=== PATIENT | female | born 1995 | race Caucasian/White ===

== ENCOUNTER 2016-08-22 17:27 | Emergency (ER) | payer OTHER ==
[~2016-08-22] VITALS: Ht 170.2 cm; Wt 100.7 kg
[~2016-08-22 17:27] MED LIST: ACET-1311 PO; ATVI IV; BCPILLS PO; FOLI1TAB7 PO; LEVO25TA PO; LMC100 PO; NORT25CA PO; OXYB5TAB74 PO; VNTHFA/IN INH
[2016-08-22 17:28] VITALS: TEMP 36.7; Ht 170.2 cm; Wt 100.7 kg
[2016-08-22] MEDS ORDERED: RRALBUTNEB PO (17:44)
[2016-08-22 18:18] LABS: BASO % 0.3 %; BASO ABS # 0.03 K/uL (0-0.2); COMPLETE YES; EOS % 6.4 %; HEMATOCRIT 41.9 % (37-47); IG% 0.2 %; LYMPH % 27.3 %; LYMPH ABS # 2.55 K/uL (1.2-3.4); MEAN CELL VOLUME 87.7 fL (80-100); MEAN CORPUSCULAR HEMOGLOBIN 29.7 pg (25-34); MEAN CORPUSCULAR HGB CONC 33.9 g/dl (32-36); MEAN PLATELET VOLUME 10.3 fL (7.4-10.4); MONO % 6.6 %; NEUT % 59.2 %; PLATELET COUNT 296 K/uL (130-400); RED BLOOD COUNT 4.78 M/uL (4.2-5.4); WHITE BLOOD COUNT 9.35 K/uL (4.8-10.8)
[2016-08-22 18:25] LABS: BUN/CREATININE RATIO 26.3 (10-20); CALCIUM 8.9 mg/dl (8.5-10.1); CREATININE 0.68 mg/dl (0.60-1.20); POTASSIUM 3.7 mmol/L (3.5-5.1)
[2016-08-22 18:28] LABS: ALB/GLOB RATIO 0.9 (0.9-2)
[2016-08-22 18:29] LABS: URINE APPEARANCE CLOUDY (CLEAR); URINE COLOR DK YELLOW; URINE EPITHELIAL CELL AUTO >30 /lpf (0-5); URINE NITRITE NEG (NEG); URINE PH 5.5 (4.5-7.5); URINE SPECIFIC GRAVITY 1.039 (1.000-1.030); UROBILINOGEN NEG (NEG); ZZUR CULT IF INDIC CLEAN CATCH NO
[2016-08-22 18:31] LABS: PARTIAL THROMBOPLASTIN RATIO 1.2; PROTHROMBIN TIME (PATIENT) 10.8 SECONDS (9.0-12.0)
[2016-08-22 18:39] LABS: MANUAL MICROSCOPIC REQUIRED? NO; REVIEW REQ? NO; URINE BILIRUBIN NEG (NEG)
[2016-08-22 18:41] LABS: PREG INTERNAL NEGATIVE QC NEG CLEAR BACKGROUND; PREG INTERNAL POSITIVE QC POS CONTROL LINE
--- NOTE | 2016-08-22 19:13 | DIAGNOSTIC IMAGING REPORT ---
PELVIC ULTRASOUND CLINICAL HISTORY: Heavy vaginal bleeding and cramps. COMPARISON STUDY: Pelvic ultrasound May 24, 2016. TECHNIQUE: Transabdominal and transvaginal sonography of the pelvis was performed. FINDINGS: The uterus measures 6.7 x 3.8 x 4.9 cm. The endometrium measures 4 mm in thickness. No uterine abnormalities are identified by sonography. The right ovary measures 2.9 x 1.7 x 1.9 cm and the left measures 2.5 x 1.4 x 1.8 cm. A few echogenic foci within the ovaries are of doubtful significance. Color flow was identified within each ovary and there was no free fluid. IMPRESSION: Unremarkable pelvic ultrasound. Electronically signed by: Rohith Raphael M.D. 08/22/2016 7:11 PM Dictated Date/Time: 08/22/2016 7:10 PM
[2016-08-22] MEDS ORDERED: KETOROLAC TROMETHAMINE 30 MG/ML VIAL IV STA (19:17)
--- NOTE | 2016-08-22 19:59 | EMERGENCY ROOM VISIT NOTE ---
History First contact with patient: 17:32 Chief Complaint: VAGINAL BLEEDING Stated Complaint: VAGINAL BLEEDING History of Present Illness The patient is a 21 year old female who presents to the Emergency Room with complaints of vaginal bleeding and pelvic cramping. The patient reports that she takes control pills and typically has her menstrual period 3 times a year. She states that she is not yet due for her period, but she has had vaginal bleeding for the past 3 weeks. She states this is slightly heavier than her regular periods. She also reports cramps, worse on the right side than the left. The patient does have a history of tubal last year while she was taking control pills. She states that she has changed pills since then. She does report a significant history of several ovarian cysts. The patient has called a new INDUSTRIAL RELATIONS OFFICER and does have an appointment next week. She denies any nausea/vomiting, fevers/chills, abnormal vaginal discharge or urinary symptoms. The patient does report that she takes her control daily and does not miss any days. Review of Systems A complete 10-point Review of Systems was discussed with the patient, with pertinent positives and negatives listed in the History of Present Illness. All remaining Review of Systems questions can be considered negative unless otherwise specified. Past Medical/Surgical History Medical Problems: (1) Asthma (2) Dyslipidemia (3) GERD (gastroesophageal reflux disease) (4) Kidney stone (5) OAB (overactive bladder) (6) Ovarian cyst (7) PTSD (post-traumatic stress disorder) (8) Seizures (9) Vaginal delivery Surgical Problems: (1) H/O colonoscopy (2) H/O esophagogastroduodenoscopy (3) H/O foot surgery (4) S/P laparoscopic cholecystectomy (5) S/P removal of ovarian cyst (6) Status post Mohs surgery Family History Diabetes mellitus FATHER GRANDMOTHER FH: cancer FATHER FH: gallbladder disease FH: heart disease FH: seizures MOTHER Social History Smoking Status: Current Every Day Smoker Alcohol Use: none Drug Use: none Marital Status: in relationship Housing Status: lives with family Occupation Status: unemployed Current/Historical Medications Scheduled Control Pills ( Control Pills), 1 TAB PO QAM Folic Acid (Folvite), 3 MG PO QAM Lamotrigine (Lamotrigine), 200 MG PO BID Levothyroxine Sodium (Synthroid), 1 TAB PO DAILY Nortriptyline (Pamelor), 25 MG PO HS Oxybutynin Chloride (Ditropan), 5 MG PO HS Scheduled PRN Acetaminophen (Tylenol), 650 MG PO DIRECTED PRN for Headache Albuterol Hfa (Ventolin Hfa), 2 PUFFS INH UD PRN for Asthma Symptoms Albuterol Sulf (Albuterol Sulfate), 1 DOSE PO Q4 PRN for Shortness of Breath Allergies Coded Allergies: Hydromorphone (Verified Allergy, Severe, Respirations stopped., 08/22/16) Morphine (Unverified Allergy, Intermediate, HIVES, 08/22/16) Adhesives (Verified Allergy, Mild, RASH, 08/22/16) Amoxicillin (Verified Allergy, Mild, RASH, 08/22/16) Oxycodone (Verified Allergy, Unknown, Hives, 08/22/16) Physical Exam Vital Signs Date Time Temp Pulse Resp B/P Pulse Ox O2 Delivery O2 Flow Rate FiO2 08/22/16 20:13 73 18 138/86 97 08/22/16 19:10 86 18 123/81 96 Room Air 08/22/16 17:28 36.7 83 20 135/92 99 Room Air Physical Exam VITALS: Vitals are noted on the nurse's note and reviewed by myself. Vital signs stable. GENERAL: This is a 21-year-old female, in no acute distress, nondiaphoretic, well-developed well-nourished. SKIN: Capillary reflex less than 2 seconds. HEART: Regular rate and rhythm without murmurs gallops or rubs. LUNGS: Clear to auscultation bilaterally without wheezes, rales or rhonchi. ABDOMEN: Positive bowel sounds x 4. The abdomen is soft. There is mild tenderness of the right lower abdomen. No guarding or rebound tenderness. PELVIC: External genitalia unremarkable. There is no blood within the vaginal vault. No abnormal discharge. NEURO: Patient was alert and oriented to person place and time. Medical Decision & Procedures ER Provider Diagnostic Interpretation: PELVIC ULTRASOUND CLINICAL HISTORY: Heavy vaginal bleeding and cramps. COMPARISON STUDY: Pelvic ultrasound May 24, 2016. TECHNIQUE: Transabdominal and transvaginal sonography of the pelvis was performed. FINDINGS: The uterus measures 6.7 x 3.8 x 4.9 cm. The endometrium measures 4 mm in thickness. No uterine abnormalities are identified by sonography. The right ovary measures 2.9 x 1.7 x 1.9 cm and the left measures 2.5 x 1.4 x 1.8 cm. A few echogenic foci within the ovaries are of doubtful significance. Color flow was identified within each ovary and there was no free fluid. IMPRESSION: Unremarkable pelvic ultrasound. Laboratory Results 08/22/16 18:00 Red Blood Count 4.78, Mean Corpuscular Volume 87.7, Mean Corpuscular Hemoglobin 29.7, Mean Corpuscular Hemoglobin Concent 33.9, Mean Platelet Volume 10.3, Neutrophils (%) (Auto) 59.2, Lymphocytes (%) (Auto) 27.3, Monocytes (%) (Auto) 6.6, Eosinophils (%) (Auto) 6.4, Basophils (%) (Auto) 0.3, Neutrophils # (Auto) 5.53, Lymphocytes # (Auto) 2.55, Monocytes # (Auto) 0.62, Eosinophils # (Auto) 0.60, Basophils # (Auto) 0.03 08/22/16 18:00 Test 08/22/16 18:00 White Blood Count 9.35 K/uL (4.8-10.8) Red Blood Count 4.78 M/uL (4.2-5.4) Hemoglobin 14.2 g/dL (12.0-16.0) Hematocrit 41.9 % (37-47) Mean Corpuscular Volume 87.7 fL (80-100) Mean Corpuscular Hemoglobin 29.7 pg (25-34) Mean Corpuscular Hemoglobin Concent 33.9 g/dl (32-36) Platelet Count 296 K/uL (130-400) Mean Platelet Volume 10.3 fL (7.4-10.4) Neutrophils (%) (Auto) 59.2 % Lymphocytes (%) (Auto) 27.3 % Monocytes (%) (Auto) 6.6 % Eosinophils (%) (Auto) 6.4 % Basophils (%) (Auto) 0.3 % Neutrophils # (Auto) 5.53 K/uL (1.4-6.5) Lymphocytes # (Auto) 2.55 K/uL (1.2-3.4) Monocytes # (Auto) 0.62 K/uL (0.11-0.59) Eosinophils # (Auto) 0.60 K/uL (0-0.5) Basophils # (Auto) 0.03 K/uL (0-0.2) RDW Standard Deviation 42.5 fL (36.4-46.3) RDW Coefficient of Variation 13.3 % (11.5-14.5) Immature Granulocyte % (Auto) 0.2 % Immature Granulocyte # (Auto) 0.02 K/uL (0.00-0.02) Prothrombin Time 10.8 SECONDS (9.0-12.0) Prothromb Time International Ratio 1.0 (0.9-1.1) Activated Partial Thromboplast Time 30.2 SECONDS (21.0-31.0) Partial Thromboplastin Ratio 1.2 Urine Color DK YELLOW Urine Appearance CLOUDY (CLEAR) Urine pH 5.5 (4.5-7.5) Urine Specific [place] 1.039 (1.000-1.030) Urine Protein TRACE (NEG) Urine Glucose (UA) NEG (NEG) Urine Ketones NEG (NEG) Urine Occult Blood 3+ (NEG) Urine Nitrite NEG (NEG) Urine Bilirubin NEG (NEG) Urine Urobilinogen NEG (NEG) Urine Leukocyte Esterase NEG (NEG) Urine WBC (Auto) 1-5 /hpf (0-5) Urine RBC (Auto) 5-10 /hpf (0-4) Urine Hyaline Casts (Auto) 5-10 /lpf (0-5) Urine Epithelial Cells (Auto) >30 /lpf (0-5) Urine Bacteria (Auto) NEG (NEG) Anion Gap 11.0 mmol/L (3-11) Est Creatinine Clear Calc Drug Dose 159.6 ml/min Estimated GFR () 144.9 Estimated GFR (Non- 125.0 BUN/Creatinine Ratio 26.3 (10-20) Calcium Level 8.9 mg/dl (8.5-10.1) Total Bilirubin 0.3 mg/dl (0.2-1) Aspartate Amino Transf (AST/SGOT) 13 U/L (15-37) Alanine Aminotransferase (ALT/SGPT) 18 U/L (12-78) Alkaline Phosphatase 67 U/L (45-117) Total Protein 7.1 gm/dl (6.4-8.2) Albumin 3.4 gm/dl (3.4-5.0) Globulin 3.7 gm/dl (2.5-4.0) Albumin/Globulin Ratio 0.9 (0.9-2) Human Chorionic Gonadotropin, Qual NEG (NEG) Medications Administered Medications (Trade) Dose Ordered Sig/Miroslava Route Start Time Stop Time Status Last Admin Dose Admin Ketorolac Tromethamine (Toradol Inj) 30 mg NOW STAT IV 08/22/16 19:17 08/22/16 19:18 DC 08/22/16 19:25 30 MG Medical Decision Differential diagnosis includes ectopic , miscarriage, ovarian cyst, ovarian torsion, uterine fibroids, among others. The patient was evaluated as above. Labs were drawn and IV access was obtained. Imaging studies were performed and read by radiology as above. The patient was medicated with 30 mg Toradol IV. The patient was reassessed multiple times during their stay in the emergency department and remained in stable condition. The patient is a 21-year-old female who presents today complaining of abnormal vaginal bleeding and pelvic cramps. Labs revealed no leukocytosis, anemia, electrolyte abnormalities or coagulopathies. Pelvic ultrasound was performed and was unremarkable. I am not suspicious of other acute process within the abdomen, as the patient's symptoms have been intermittent for the past several weeks. Urinalysis was not suggestive of infection. Serum was negative. Pelvic exam was performed and does not show any blood within the vaginal vault. The patient is not anemic and her bleeding has not been excessively heavy. They do feel she is stable to follow-up with INDUSTRIAL RELATIONS OFFICER as an outpatient as scheduled. She will return sooner for any new/concerning symptoms. She verbalized understanding of my assessment and treatment plan and was discharged home in good condition. Based on the patient's presentation, lab results, and imaging studies, I feel the patient is stable for outpatient treatment. Discharge instructions were reviewed with the patient. The patient verbalized understanding of my assessment and treatment plan and was discharged home in good condition. Impression Primary Impression: Abnormal vaginal bleeding Departure Information Dispostion Home / Self-Care Condition GOOD Referrals Melissa Kolb D.O. (PCP) Patient Instructions A Signature Page, My [facility] Additional Instructions Follow-up with INDUSTRIAL RELATIONS OFFICER as scheduled. Ultrasound today was negative. For pain control, you can use the following [id number] medicines (if >12 yo): - Regular strength (325mg/tab) Tylenol (acetaminophen) 2 tabs every 4-6 hours as needed. Do not exceed 12 tablets in a 24 hour period. Avoid taking more than 4 grams (4000 mg) of Tylenol per day. This includes any other sources of acetaminophen you may take on a regular basis. - Regular strength (200 mg/tab) Advil (ibuprofen) 1-2 tabs every 4-6 hours as needed. Do not exceed a dose of 3200 mg per day. Return to the emergency department with worsening pain, worsening bleeding or any other new/concerning symptoms.
[2016-08-22 20:13] VITALS: BP 138/86; PULSE 73; O2SAT 97
== END 2016-08-22 20:16 | disposition home or self-care (01) ==
LOC: C.EDB 17:28
DX: N93.9 Abnormal uterine and vaginal bleeding, unspecified (principal); R10.2 Pelvic and perineal pain; J45.909 Unspecified asthma, uncomplicated; K21.9 Gastro-esophageal reflux disease without esophagitis; E78.5 Hyperlipidemia, unspecified; F17.200 Nicotine dependence, unspecified, uncomplicated

== ENCOUNTER 2017-01-22 11:46 | Emergency (ER) | payer OTHER ==
[~2017-01-22] VITALS: Ht 170.2 cm; Wt 100.7 kg
[~2017-01-22 11:46] MED LIST changes: -ATVI IV; +DTR/5 PO; -NORT25CA PO; -OXYB5TAB74 PO; +RRALBUTNEB PO
[2017-01-22 11:49] VITALS: TEMP 36.6; Ht 170.2 cm; Wt 100.7 kg
[2017-01-22] MEDS ORDERED: LEVO50TA6 PO (12:01)
[2017-01-22] MEDS ORDERED: LEVE500T13 PO (12:02)
[2017-01-22 12:43] LABS: BASO % 0.3 %; BASO ABS # 0.02 K/uL (0-0.2); COMPLETE YES; EOS % 8.3 %; HEMATOCRIT 43.9 % (37-47); LYMPH % 37.5 %; LYMPH ABS # 2.71 K/uL (1.2-3.4); MEAN CELL VOLUME 88.9 fL (80-100); MEAN CORPUSCULAR HGB CONC 33.7 g/dl (32-36); MEAN PLATELET VOLUME 9.4 fL (7.4-10.4); MONO % 8.3 %; NEUT % 45.6 %; PLATELET COUNT 288 K/uL (130-400); RED BLOOD COUNT 4.94 M/uL (4.2-5.4); WHITE BLOOD COUNT 7.22 K/uL (4.8-10.8)
[2017-01-22 12:47] LABS: URINE APPEARANCE CLEAR (CLEAR); URINE BILIRUBIN NEG (NEG); URINE COLOR YELLOW; URINE EPITHELIAL CELL AUTO >30 /lpf (0-5); URINE NITRITE NEG (NEG); URINE PH 7.5 (4.5-7.5); URINE SPECIFIC GRAVITY 1.014 (1.000-1.030); UROBILINOGEN NEG (NEG); ZZUR CULT IF INDIC CLEAN CATCH NO
--- NOTE | 2017-01-22 12:53 | EMERGENCY ROOM VISIT NOTE ---
History Report prepared by Santosh: Anthony Shabazz Under the Supervision of: Dr. Naveed Lancaster M.D. First contact with patient: 12:19 Chief Complaint: ABDOMINAL PAIN Stated Complaint: ABD. PAIN W/VAGINAL BLEEDING Nursing Triage Summary: Pt reports lower abdominal pain since . N/V. Pt reports she normally only gets her menstrual cycle once every 3 months due to control. Pt reports she had her period last month, but she is now having vaginal bleeding again. History of Present Illness The patient is a 21 year old female who presents to the Emergency Room with complaints of persistent suprapubic abdominal pain starting 2 days ago. She took Tylenol last night without relief. She also complains of vaginal bleeding starting about 2 days ago. The patient normally has her menstrual period once every 3 months due to control. She had her menstrual period last month. She had a vomiting episode yesterday and today. She currently denies any nausea. She has intermittent swelling in both feet. She discussed her symptoms with her OB-ASSOCIATE ATTORNEY who referred her to the Emergency Room. She denies any chance of . She states that she is not concerned for STDs. She has a history of ectopic occurring last year. She also has a history of ovarian cyst and cholecystectomy. She denies any fevers, chills, back pain, or any other complaints. Source of History: patient Onset: 2 days ago Position: abdomen (suprapubic) Timing: other (persistent) Modifying Factors (Relieving): tylenol (without relief) Associated Symptoms: + nausea, + vomiting, No fevers, No chills, No back pain Review of Systems See HPI for pertinent positives & negatives. A total of 10 systems reviewed and were otherwise negative. Past Medical & Surgical Medical Problems: (1) Asthma (2) Dyslipidemia (3) GERD (gastroesophageal reflux disease) (4) Kidney stone (5) OAB (overactive bladder) (6) Ovarian cyst (7) PTSD (post-traumatic stress disorder) (8) Seizures (9) Vaginal delivery Surgical Problems: (1) H/O colonoscopy (2) H/O esophagogastroduodenoscopy (3) H/O foot surgery (4) S/P laparoscopic cholecystectomy (5) S/P removal of ovarian cyst (6) Status post Mohs surgery Family History Diabetes mellitus FATHER GRANDMOTHER FH: cancer FATHER FH: gallbladder disease FH: heart disease FH: seizures MOTHER Social History Smoking Status: Current Every Day Smoker Alcohol Use: none Drug Use: none Marital Status: in relationship Housing Status: lives with family Occupation Status: unemployed Current/Historical Medications Scheduled Control Pills ( Control Pills), 1 TAB PO QAM Folic Acid (Folvite), 3 MG PO QAM Lamotrigine (Lamotrigine), 200 MG PO BID Levetiracetam (Keppra), 250 MG PO BID Levothyroxine Sodium (Levothyroxine Sodium), 50 MCG PO DAILY Oxybutynin Chloride (Ditropan), 5 MG PO HS Scheduled PRN Acetaminophen (Tylenol), 650 MG PO DIRECTED PRN for Headache Albuterol Hfa (Ventolin Hfa), 2 PUFFS INH UD PRN for Asthma Symptoms Albuterol Sulf (Albuterol Sulfate), 1 DOSE PO Q4 PRN for Shortness of Breath Allergies Coded Allergies: Hydromorphone (Verified Allergy, Severe, Respirations stopped., 01/22/17) Morphine (Unverified Allergy, Intermediate, HIVES, 01/22/17) Adhesives (Verified Allergy, Mild, RASH, 01/22/17) Amoxicillin (Verified Allergy, Mild, RASH, 01/22/17) Oxycodone (Verified Allergy, Unknown, Hives, 01/22/17) Physical Exam Vital Signs Date Time Temp Pulse Resp B/P (MAP) Pulse Ox O2 Delivery O2 Flow Rate FiO2 01/22/17 13:53 94 16 114/74 97 Room Air 01/22/17 11:49 36.6 97 18 120/79 97 Room Air Physical Exam GENERAL: Patient is well appearing and in minimal distress. HEENT: No acute trauma, normocephalic atraumatic, mucous membranes moist, no nasal congestion, no scleral icterus. NECK: No stridor, no adenopathy, no meningismus, trachea is midline. LUNGS: No dyspnea. Clear to auscultation and equal bilaterally. No wheeze, no rhonchi. HEART: Regular rate and rhythm. No murmurs, rubs, gallops appreciated. ABDOMEN: Soft, vague suprapubic/right pelvic discomfort to palpation, bowel sounds positive, no masses appreciated, no peritonitis. BACK: No midline tenderness, no CVA tenderness PELVIC EXAM: Normal vaginal vault, no blood or discharge. EXTREMITIES: Normal motion all extremities, no cyanosis, no edema. NEUROLOGIC: Alert and oriented, no acute motor or sensory deficits, no focal weakness, cranial nerves grossly intact. SKIN: No rash, no jaundice, no diaphoresis. Medical Decision & Procedures ER Provider Diagnostic Interpretation: US results as stated below per interpretation by me and the radiologist: PELVIC ULTRASOUND CLINICAL HISTORY: Right pelvic discomfort. COMPARISON STUDY: Pelvic ultrasound August 2016. TECHNIQUE: Transabdominal and transvaginal sonography of the pelvis was performed. FINDINGS: The uterus measures 7.8 x 3.4 x 4.1 cm. Endometrium is normal in thickness, measuring 3 mm. The right ovary measures 3.2 x 2.2 x 1.7 cm and the left measures 3.3 x 1.4 x 1.4 cm. Color flow is identified within each ovary. Numerous follicles were shown within the ovaries. There was no free fluid. IMPRESSION: Normal pelvic ultrasound. Electronically signed by: Rohith Raphael M.D. 01/22/2017 1:44 PM Dictated Date/Time: 01/22/2017 1:42 PM Laboratory Results 01/22/17 12:31 Red Blood Count 4.94, Mean Corpuscular Volume 88.9, Mean Corpuscular Hemoglobin 30.0, Mean Corpuscular Hemoglobin Concent 33.7, Mean Platelet Volume 9.4, Neutrophils (%) (Auto) 45.6, Lymphocytes (%) (Auto) 37.5, Monocytes (%) (Auto) 8.3, Eosinophils (%) (Auto) 8.3, Basophils (%) (Auto) 0.3, Neutrophils # (Auto) 3.29, Lymphocytes # (Auto) 2.71, Monocytes # (Auto) 0.60, Eosinophils # (Auto) 0.60, Basophils # (Auto) 0.02 01/22/17 00:00 Test 01/22/17 00:00 01/22/17 12:31 Anion Gap 10.0 mmol/L (3-11) Est Creatinine Clear Calc Drug Dose 152.9 ml/min Estimated GFR () 141.1 Estimated GFR (Non- 121.8 BUN/Creatinine Ratio 19.1 (10-20) Calcium Level 8.7 mg/dl (8.5-10.1) White Blood Count 7.22 K/uL (4.8-10.8) Red Blood Count 4.94 M/uL (4.2-5.4) Hemoglobin 14.8 g/dL (12.0-16.0) Hematocrit 43.9 % (37-47) Mean Corpuscular Volume 88.9 fL (80-100) Mean Corpuscular Hemoglobin 30.0 pg (25-34) Mean Corpuscular Hemoglobin Concent 33.7 g/dl (32-36) Platelet Count 288 K/uL (130-400) Mean Platelet Volume 9.4 fL (7.4-10.4) Neutrophils (%) (Auto) 45.6 % Lymphocytes (%) (Auto) 37.5 % Monocytes (%) (Auto) 8.3 % Eosinophils (%) (Auto) 8.3 % Basophils (%) (Auto) 0.3 % Neutrophils # (Auto) 3.29 K/uL (1.4-6.5) Lymphocytes # (Auto) 2.71 K/uL (1.2-3.4) Monocytes # (Auto) 0.60 K/uL (0.11-0.59) Eosinophils # (Auto) 0.60 K/uL (0-0.5) Basophils # (Auto) 0.02 K/uL (0-0.2) RDW Standard Deviation 42.0 fL (36.4-46.3) RDW Coefficient of Variation 12.8 % (11.5-14.5) Immature Granulocyte % (Auto) 0.0 % Immature Granulocyte # (Auto) 0.00 K/uL (0.00-0.02) Urine Color YELLOW Urine Appearance CLEAR (CLEAR) Urine pH 7.5 (4.5-7.5) Urine Specific [place] 1.014 (1.000-1.030) Urine Protein NEG (NEG) Urine Glucose (UA) NEG (NEG) Urine Ketones NEG (NEG) Urine Occult Blood 3+ (NEG) Urine Nitrite NEG (NEG) Urine Bilirubin NEG (NEG) Urine Urobilinogen NEG (NEG) Urine Leukocyte Esterase TRACE (NEG) Urine WBC (Auto) 5-10 /hpf (0-5) Urine RBC (Auto) 5-10 /hpf (0-4) Urine Hyaline Casts (Auto) 1-5 /lpf (0-5) Urine Epithelial Cells (Auto) >30 /lpf (0-5) Urine Bacteria (Auto) NEG (NEG) Urine Test NEG (NEG) Laboratory results as reviewed by me. Medications Administered Medications (Trade) Dose Ordered Sig/Miroslava Route Start Time Stop Time Status Last Admin Dose Admin Ketorolac Tromethamine (Toradol Inj) 60 mg NOW STAT IM 01/22/17 13:06 01/22/17 13:07 DC 01/22/17 13:15 60 MG ED Course 1219: The patient was evaluated in room B02. A complete history and physical exam was performed. 1246: I performed the pelvic exam. 1306: Toradol Inj 60 mg IM 1419: Reevaluated the patient. Discussed results and discharge instructions: She verbalized understanding and agreement. The patient is ready for discharge. Medical Decision Differential: Appendicitis, Ovarian Torsion, PID, Tubo-ovarian Abscess, Intrauterine , Ectopic , Endometriosis, amongst other pathologies entertained. Blood pressure screening: Patient was found to have normal blood pressure on screening and does not require follow-up. Medication Reconciliation: I attest that I have personally reviewed the patient 's current medication list. 21 yr old female who has history of chronic pelvic issues on suppressive OC therapy and frequent visits to here, Structural Layout Worker, and other ERs for vaginal bleeding pelvic discomfort. US negative, exam benign, labs normal. She is well appearing and in no distress stating IM Toradol helped her discomfort. Exam not consistent with appendicitis. She does not have US nor exam consistent with torsion/pid/abscess. Preg negative. Advised follow up with Structural Layout Worker, RT[facility] if worsening or other concerns. Impression Primary Impression: Pelvic pain Scribe Attestation The scribe's documentation has been prepared under my direction and personally reviewed by me in its entirety. I confirm that the note above accurately reflects all work, treatment, procedures, and medical decision making performed by me. Departure Information Dispostion Home / Self-Care Referrals Melissa Kolb D.O. (PCP) Forms HOME CARE DOCUMENTATION FORM, IMPORTANT VISIT INFORMATION Patient Instructions My [facility] Additional Instructions Please follow up with your Woodenware Assembler for further evaluation. Return if fevers, vomiting, passing out worsening pain or other concerns. Use Tylenol and Ibuprofen as needed for discomfort.
[2017-01-22 12:54] LABS: MANUAL MICROSCOPIC REQUIRED? NO; REVIEW REQ? NO
[2017-01-22] MEDS ORDERED: KETOROLAC TROMETHAMINE 60 MG/2 ML VIAL IM STA (13:06)
[2017-01-22 13:18] LABS: BUN/CREATININE RATIO 19.1 (10-20); CALCIUM 8.7 mg/dl (8.5-10.1); CREATININE 0.71 mg/dl (0.60-1.20); POTASSIUM 4.3 mmol/L (3.5-5.1)
--- NOTE | 2017-01-22 13:45 | DIAGNOSTIC IMAGING REPORT ---
PELVIC ULTRASOUND CLINICAL HISTORY: Right pelvic discomfort. COMPARISON STUDY: Pelvic ultrasound August 2016. TECHNIQUE: Transabdominal and transvaginal sonography of the pelvis was performed. FINDINGS: The uterus measures 7.8 x 3.4 x 4.1 cm. Endometrium is normal in thickness, measuring 3 mm. The right ovary measures 3.2 x 2.2 x 1.7 cm and the left measures 3.3 x 1.4 x 1.4 cm. Color flow is identified within each ovary. Numerous follicles were shown within the ovaries. There was no free fluid. IMPRESSION: Normal pelvic ultrasound. Electronically signed by: Rohith Raphael M.D. 01/22/2017 1:44 PM Dictated Date/Time: 01/22/2017 1:42 PM
[2017-01-22 13:53] VITALS: BP 114/74; PULSE 94; O2SAT 97
== END 2017-01-22 14:31 | disposition home or self-care (01) ==
LOC: C.EDB 11:48
DX: R10.2 Pelvic and perineal pain (principal); R11.10 Vomiting, unspecified; J45.909 Unspecified asthma, uncomplicated; F17.200 Nicotine dependence, unspecified, uncomplicated; Z87.442 Personal history of urinary calculi; Z90.49 Acquired absence of other specified parts of digestive tract; Z98.890 Other specified postprocedural states; Z83.3 Family history of diabetes mellitus; Z82.0 Family history of epilepsy and other diseases of the nervous system

== ENCOUNTER 2017-04-06 13:44 | Emergency (ER) | payer OTHER ==
[~2017-04-06] VITALS: Ht 170.2 cm; Wt 101.2 kg
[~2017-04-06 13:44] MED LIST changes: -DTR/5 PO; +LEVE500T13 PO; -LEVO25TA PO; +LEVO50TA6 PO; +OXYB5TAB74 PO
[2017-04-06 13:49] VITALS: TEMP 36.8; Ht 170.2 cm; Wt 101.2 kg
[2017-04-06] MEDS ORDERED: SODIUM CHLORIDE 0.9% 1000ML 1,000 ML IV STA (14:02)
[2017-04-06] MEDS ORDERED: FENTANYL CITRATE INJ 50 MCG/1 ML 2 ML VIAL IV STA (14:02)
--- NOTE | 2017-04-06 14:08 | EMERGENCY ROOM VISIT NOTE ---
History First contact with patient: 13:52 Chief Complaint: ABDOMINAL PAIN Stated Complaint: LEFT SIDE AB PAIN History of Present Illness The patient is a 21 year old female who presents to the Emergency Room via private vehicle accompanied by female with complaints of "left side abdominal pain". The patient states she has a history of ovarian cysts, and colitis of which she follows with [facility]. She states that she has had pain exactly like this with previous ovarian cysts. She has tried changing her control pills with some improvement. She currently notes that the pain she is experiencing left lower quadrant, times the past few days. Today has acutely worsened. She rates the pain as an 8/10. She called her [facility] today who informed her to go to the emergency Department for further evaluation and management as it did not have any appointments today. She has associated nausea. She states that she was really tested for STDs, and was negative, and denies any further concern for sexually transmitted infections. She denies chance of . She denies any vomiting, urinary symptoms, vaginal discharge, chest pain, shortness of breath, fevers, chills, diarrhea or constipation. Review of Systems A complete 10-point Review of Systems was discussed with the patient, with pertinent positives and negatives listed in the History of Present Illness. All remaining Review of Systems questions can be considered negative unless otherwise specified. Past Medical/Surgical History Medical Problems: (1) Asthma (2) Dyslipidemia (3) GERD (gastroesophageal reflux disease) (4) Kidney stone (5) OAB (overactive bladder) (6) Ovarian cyst (7) PTSD (post-traumatic stress disorder) (8) Seizures (9) Vaginal delivery Surgical Problems: (1) H/O colonoscopy (2) H/O esophagogastroduodenoscopy (3) H/O foot surgery (4) S/P laparoscopic cholecystectomy (5) S/P removal of ovarian cyst (6) Status post Mohs surgery Family History Diabetes mellitus FATHER GRANDMOTHER FH: cancer FATHER FH: gallbladder disease FH: heart disease FH: seizures MOTHER Social History Smoking Status: Current Every Day Smoker Alcohol Use: none Drug Use: none Marital Status: in relationship Housing Status: lives with family Occupation Status: unemployed Current/Historical Medications Scheduled Control Pills ( Control Pills), 1 TAB PO QAM Folic Acid (Folvite), 3 MG PO QAM Lamotrigine (Lamotrigine), 200 MG PO BID Levetiracetam (Keppra), 500 MG PO BID Levothyroxine Sodium (Levothyroxine Sodium), 50 MCG PO DAILY Omeprazole (Prilosec), 40 MG PO DAILY Oxybutynin Chloride (Ditropan), 5 MG PO HS Scheduled PRN Acetaminophen (Tylenol), 650 MG PO DIRECTED PRN for Headache Albuterol Hfa (Ventolin Hfa), 2 PUFFS INH UD PRN for Asthma Symptoms Albuterol Sulf (Albuterol Sulfate), 1 DOSE PO Q4 PRN for Shortness of Breath Hydrocodone/Acetaminophen 5MG/325MG ([place] 5MG/325MG), 1-2 TABLET PO Q6 PRN for Pain Physical Exam Vital Signs Date Time Temp Pulse Resp B/P (MAP) Pulse Ox O2 Delivery O2 Flow Rate FiO2 04/06/17 16:18 70 18 107/66 98 04/06/17 15:40 81 16 125/72 96 04/06/17 13:49 36.8 92 20 130/83 98 Room Air Physical Exam VITAL SIGNS - Vital signs and nursing notes were reviewed. Afebrile, normotensive, non-tachycardic and is saturating well on room air 98% GENERAL -21-year-old female appearing her stated age who is in no acute distress. Communicates well with provider and answers questions appropriately. SKIN - Without rashes. HEAD - NC/AT. EYES - Sclera anicteric. Palpebral conjunctiva pink and moist with no injection noted. EARS - No deformities of external structures noted on gross examination bilaterally. NOSE - Midline and without cyanosis. No epistaxis or purulent drainage noted. MOUTH/OROPHARYNX - Without perioral cyanosis. Buccal mucosa pink and moist and without leukoplakia. Tongue midline with equal elevation of palate bilaterally. No tonsillar hypertrophy, erythema, or exudates noted. Fair dentition noted. NECK - Neck with FROM. Supple to palpation. No lymphadenopathy noted. No nuchal rigidity. LUNGS - Chest wall symmetric without accessory muscle use, intercostals retractions, or central cyanosis. Normal vesicular breath sounds CTA B/L. No wheezes, rales, or rhonchi appreciated. CARDIAC - RRR with S1/S2. No murmur, rubs, or gallops appreciated. ABDOMEN - Abdominal contour without pulsations or visible masses. BS normoactive all four quadrants. No tenderness appreciated in the upper quadrant or periumbilical region. There is pinpoint tenderness in the left lower quadrant. No right lower quadrant tenderness. No superpubic tenderness. No palpable masses, hepatosplenomegaly, or ascites noted. EXTREMITIES - No clubbing or peripheral cyanosis. +5/5 strength noted in UE/LE bilaterally. NEUROLOGIC - Cranial nerves II through XII grossly intact. PSYCH - A&Ox3 and cooperates fully with examiner. PELVIC EXAM: The patient's nurse was present to assist with exam, and district plant supervisor. The patient was educated upon what her pelvic exam was, and she was offered to decline. Patient did not decline. I explained to her the pelvic exam. The patient was prepared and positioned for best examination. Patient was positioned by nurse. The external genitalia, mons pubis, labia majora, labia minora, clitoris, urethral meatus, Bartholin's glands, perineum, and anus were within normal limits. The speculum was held then a 45 angle and properly lubricated, the speculum was inserted without difficulty to the depth of the cervix. Speculum was then open slowly. Cervix was identified. The cervix was within normal limits and did not display any purulent discharge. The speculum was then closed and removed without difficulty. I then explained to the patient that I was in a perform a bimanual pelvic examination. I then introduced the index finger into the vaginal vault, palpated the cervix and cervical os and noted no abnormalities. The uterine body, apex and fundus were then palpated and were within normal limits, and position. The ovaries were then palpated with my left hand pressing over the lower quadrants of the abdomen and my right index finger pressing in the region of the ovary with no abnormal findings. Patient did did experience discomfort in the suprapubic and left lower quadrant. The exam was concluded, the nurse felt the patient back to her bed. Exam was unremarkable and tolerated well without complication. Medical Decision & Procedures ER Provider Diagnostic Interpretation: PELVIC ULTRASOUND CLINICAL HISTORY: Left lower quadrant abdominal pain. Hx ovarian cysts. COMPARISON STUDY: Pelvic ultrasound January 22, 2017. TECHNIQUE: Transabdominal and transvaginal sonography of the pelvis was performed. FINDINGS: The uterus measures 7 x 3.7 x 4.8 cm. Endometrium measures 2 mm in thickness. No uterine abnormalities are identified. The right ovary measures 2.3 x 1.5 x 1.3 cm and the left ovary measures 2.7 x 1.3 x 1.3 cm. Color flow is identified within each ovary. No ovarian cyst is identified. There is no free fluid within the cul-de-sac. IMPRESSION: Normal pelvic ultrasound. Electronically signed by: Rohith Raphael M.D. 04/06/2017 3:25 PM Dictated Date/Time: 04/06/2017 3:24 PM Laboratory Results 04/06/17 14:10 Red Blood Count 4.49, Mean Corpuscular Volume 88.6, Mean Corpuscular Hemoglobin 31.4, Mean Corpuscular Hemoglobin Concent 35.4, Mean Platelet Volume 9.6, Neutrophils (%) (Auto) 56.9, Lymphocytes (%) (Auto) 28.5, Monocytes (%) (Auto) 8.3, Eosinophils (%) (Auto) 5.9, Basophils (%) (Auto) 0.1, Neutrophils # (Auto) 4.25, Lymphocytes # (Auto) 2.13, Monocytes # (Auto) 0.62, Eosinophils # (Auto) 0.44, Basophils # (Auto) 0.01 04/06/17 14:10 Test 04/06/17 14:10 White Blood Count 7.47 K/uL (4.8-10.8) Red Blood Count 4.49 M/uL (4.2-5.4) Hemoglobin 14.1 g/dL (12.0-16.0) Hematocrit 39.8 % (37-47) Mean Corpuscular Volume 88.6 fL (80-100) Mean Corpuscular Hemoglobin 31.4 pg (25-34) Mean Corpuscular Hemoglobin Concent 35.4 g/dl (32-36) Platelet Count 245 K/uL (130-400) Mean Platelet Volume 9.6 fL (7.4-10.4) Neutrophils (%) (Auto) 56.9 % Lymphocytes (%) (Auto) 28.5 % Monocytes (%) (Auto) 8.3 % Eosinophils (%) (Auto) 5.9 % Basophils (%) (Auto) 0.1 % Neutrophils # (Auto) 4.25 K/uL (1.4-6.5) Lymphocytes # (Auto) 2.13 K/uL (1.2-3.4) Monocytes # (Auto) 0.62 K/uL (0.11-0.59) Eosinophils # (Auto) 0.44 K/uL (0-0.5) Basophils # (Auto) 0.01 K/uL (0-0.2) RDW Standard Deviation 43.7 fL (36.4-46.3) RDW Coefficient of Variation 13.4 % (11.5-14.5) Immature Granulocyte % (Auto) 0.3 % Immature Granulocyte # (Auto) 0.02 K/uL (0.00-0.02) Urine Color DK YELLOW Urine Appearance CLEAR (CLEAR) Urine pH 6.0 (4.5-7.5) Urine Specific [place] 1.032 (1.000-1.030) Urine Protein NEG (NEG) Urine Glucose (UA) NEG (NEG) Urine Ketones NEG (NEG) Urine Occult Blood TRACE (NEG) Urine Nitrite NEG (NEG) Urine Bilirubin NEG (NEG) Urine Urobilinogen NEG (NEG) Urine Leukocyte Esterase NEG (NEG) Urine WBC (Auto) 1-5 /hpf (0-5) Urine RBC (Auto) 0-4 /hpf (0-4) Urine Hyaline Casts (Auto) 1-5 /lpf (0-5) Urine Epithelial Cells (Auto) >30 /lpf (0-5) Urine Bacteria (Auto) NEG (NEG) Urine Mucus PRESENT (NONE PRSENT) Urine Test NEG (NEG) Anion Gap 4.0 mmol/L (3-11) Est Creatinine Clear Calc Drug Dose 167.4 ml/min Estimated GFR () 147.1 Estimated GFR (Non- 126.9 BUN/Creatinine Ratio 21.7 (10-20) Calcium Level 8.9 mg/dl (8.5-10.1) Total Bilirubin 0.3 mg/dl (0.2-1) Aspartate Amino Transf (AST/SGOT) 8 U/L (15-37) Alanine Aminotransferase (ALT/SGPT) 18 U/L (12-78) Alkaline Phosphatase 71 U/L (45-117) Total Protein 6.9 gm/dl (6.4-8.2) Albumin 3.2 gm/dl (3.4-5.0) Globulin 3.7 gm/dl (2.5-4.0) Albumin/Globulin Ratio 0.9 (0.9-2) Medications Administered Medications (Trade) Dose Ordered Sig/Miroslava Route Start Time Stop Time Status Last Admin Dose Admin Sodium Chloride 1,000 ml @ 999 mls/hr Q1H1M STAT IV 04/06/17 14:02 04/06/17 15:02 DC 04/06/17 14:41 999 MLS/HR Fentanyl Citrate (Fentanyl Inj) 25 mcg NOW STAT IV 04/06/17 14:02 04/06/17 14:05 DC 04/06/17 14:40 25 MCG Medical Decision Patient was seen and evaluated as above. After obtaining a thorough history and physical examination IV access was initiated and the above workup was performed. Patient has left lower quadrant abdominal pain with a history of ovarian cysts. She is due for her menses in approximately 3 days. She notes this does not feel a pelvic cramps. She was given fentanyl for pain that she has numerous allergies, and hydrated with normal saline. CBC reveals no leukocytosis or anemia. Patient's CMP reveals normal electrolytes, no evidence of kidney failure or liver failure. Urine is nondiagnostic. Ultrasound is negative. Patient was offered CAT scans and such, however after thoroughly discussing this with her I believe that her pain is most likely coming from pelvic cramps, and do not believe that radiation from the CAT scan in this case is beneficial. She is in agreement. She'll be given a short course of pain medication, and discharged home with close follow-up. She is to return with worsening. She was educated upon worrisome symptoms which to return, had questions answered prior to discharge, and was discharged home in good condition. In evaluation treatment this patient following differential diagnoses were entertained: Ovarian torsion, cyst, PID, diverticulitis, among others. I do not suspect any emergent cause at this time. Impression Primary Impression: Left lower quadrant pain Departure Information Dispostion Home / Self-Care Condition GOOD Prescriptions Hydrocodone/Acetaminophen 5MG/325MG ([place] 5MG/325MG) Tab 1-2 TABLET PO Q6 Y for Pain, #15 TAB For Initial Treatment Prov: Jordi Greene PA-C 04/06/17 Referrals Melissa Kolb D.O. (PCP) Patient Instructions My [facility] Additional Instructions You have been treated in the Emergency Department your Abdominal Pain. Laboratory results and imaging studies have ruled out any emergent causes for your abdominal pain which would warrant admission or surgery. You have been prescribed [place] to be used for pain control. This is a narcotic medication. You cannot drive or consume alcohol while on this medicine. This medicine should only be used for pain that cannot be controlled with over-the- counter pain medicines. Please do not take Tylenol with this. For pain control, you can use the following [id number] medicines (if >12 yo): Please do not take Tylenol with the [place]. - Regular strength (200 mg/tab) Advil (ibuprofen) 1-2 tabs every 4-6 hours as needed. Do not exceed a dose of 3200 mg per day. Drink plenty of water and stay well hydrated. As with any trip to the Emergency Department, you should follow-up with your Primary Care Provider from today's visit. Please also follow-up with her OB/ [facility] CARPENTER. Please call them both tomorrow. Return to the emergency department if your symptoms persist despite treatment plan outlined above or if the following symptoms occur: increased fevers, chills , worsening nausea/vomiting, blood in your stool or urine. Please return to the emergency department with any new/concerning symptoms.
[2017-04-06] MEDS ORDERED: OMEP40CA41 PO (14:22)
[2017-04-06 14:24] LABS: BASO % 0.1 %; BASO ABS # 0.01 K/uL (0-0.2); COMPLETE YES; EOS % 5.9 %; HEMATOCRIT 39.8 % (37-47); IG% 0.3 %; LYMPH % 28.5 %; LYMPH ABS # 2.13 K/uL (1.2-3.4); MEAN CELL VOLUME 88.6 fL (80-100); MEAN CORPUSCULAR HEMOGLOBIN 31.4 pg (25-34); MEAN CORPUSCULAR HGB CONC 35.4 g/dl (32-36); MEAN PLATELET VOLUME 9.6 fL (7.4-10.4); MONO % 8.3 %; NEUT % 56.9 %; PLATELET COUNT 245 K/uL (130-400); RED BLOOD COUNT 4.49 M/uL (4.2-5.4); WHITE BLOOD COUNT 7.47 K/uL (4.8-10.8)
[2017-04-06 14:32] LABS: URINE APPEARANCE CLEAR (CLEAR); URINE BILIRUBIN NEG (NEG); URINE COLOR DK YELLOW; URINE EPITHELIAL CELL AUTO >30 /lpf (0-5); URINE NITRITE NEG (NEG); URINE SPECIFIC GRAVITY 1.032 (1.000-1.030); UROBILINOGEN NEG (NEG); ZZUR CULT IF INDIC CLEAN CATCH NO
[2017-04-06 14:42] LABS: BUN/CREATININE RATIO 21.7 (10-20); CALCIUM 8.9 mg/dl (8.5-10.1); CREATININE 0.65 mg/dl (0.60-1.20); POTASSIUM 3.9 mmol/L (3.5-5.1)
[2017-04-06 14:43] LABS: MANUAL MICROSCOPIC REQUIRED? NO; REVIEW REQ? YES
[2017-04-06 14:44] LABS: ALB/GLOB RATIO 0.9 (0.9-2)
[2017-04-06 14:47] LABS: URINE MUCUS PRESENT (NONE PRSENT)
--- NOTE | 2017-04-06 15:26 | DIAGNOSTIC IMAGING REPORT ---
PELVIC ULTRASOUND CLINICAL HISTORY: Left lower quadrant abdominal pain. Hx ovarian cysts. COMPARISON STUDY: Pelvic ultrasound January 22, 2017. TECHNIQUE: Transabdominal and transvaginal sonography of the pelvis was performed. FINDINGS: The uterus measures 7 x 3.7 x 4.8 cm. Endometrium measures 2 mm in thickness. No uterine abnormalities are identified. The right ovary measures 2.3 x 1.5 x 1.3 cm and the left ovary measures 2.7 x 1.3 x 1.3 cm. Color flow is identified within each ovary. No ovarian cyst is identified. There is no free fluid within the cul-de-sac. IMPRESSION: Normal pelvic ultrasound. Electronically signed by: Rohith Raphael M.D. 04/06/2017 3:25 PM Dictated Date/Time: 04/06/2017 3:24 PM
[2017-04-06] MEDS ORDERED: HYDR-5688 PO (16:06)
[2017-04-06 16:18] VITALS: BP 107/66; PULSE 70; O2SAT 98
== END 2017-04-06 16:20 | disposition home or self-care (01) ==
LOC: C.EDB 13:46
DX: R10.32 Left lower quadrant pain (principal); J45.909 Unspecified asthma, uncomplicated; E78.5 Hyperlipidemia, unspecified; K21.9 Gastro-esophageal reflux disease without esophagitis; N32.81 Overactive bladder; R56.9 Unspecified convulsions; F17.200 Nicotine dependence, unspecified, uncomplicated; F43.10 Post-traumatic stress disorder, unspecified; Z87.442 Personal history of urinary calculi; Z79.3 Long term (current) use of hormonal contraceptives; Z83.3 Family history of diabetes mellitus; Z82.0 Family history of epilepsy and other diseases of the nervous system

== ENCOUNTER 2017-04-17 11:54 | Emergency (ER) | payer OTHER ==
[~2017-04-17] VITALS: Ht 170.2 cm; Wt 100.8 kg
[~2017-04-17 11:54] MED LIST changes: +HYDR-5688 PO; +OMEP40CA41 PO
[2017-04-17 11:59] VITALS: TEMP 36.7; Ht 170.2 cm; Wt 100.8 kg
[2017-04-17] MEDS ORDERED: SODIUM CHLORIDE 0.9% 1000ML 1,000 ML IV STA (12:12)
[2017-04-17] MEDS ORDERED: KETOROLAC TROMETHAMINE 30 MG/ML VIAL IV STA (12:12)
[2017-04-17] MEDS ORDERED: METOCLOPRAMIDE HCL INJ 5 MG/ML 2 ML VIAL IV STA (12:12)
--- NOTE | 2017-04-17 12:13 | EMERGENCY ROOM VISIT NOTE ---
History Report prepared by Santosh: Federico Steele Under the Supervision of: Dr. Ady Carnes M.D. First contact with patient: 12:06 Chief Complaint: ABDOMINAL PAIN Stated Complaint: ABD. PAIN W/VOMITING X 2 DAYS Nursing Triage Summary: pt reports hx of ovarian cyst and has had increased abdominal pain X 2 days with NV , reports I am to have a CT sched for this week but I can not wait History of Present Illness The patient is a 21 year old female who presents to the Emergency Room with complaints of constant abdominal pain starting yesterday which is a little bit better today.. The patient additionally states that she is nauseous, and she has been vomiting. The patient states that she has a CT scan scheduled for this week, though she cannot wait that long. She additionally states that she has a history of ovarian cysts. Source of History: patient Onset: yesterday Position: abdomen Timing: constant Associated Symptoms: + nausea, + vomiting Review of Systems See HPI for pertinent positives & negatives. A total of 10 systems reviewed and were otherwise negative. Past Medical & Surgical Medical Problems: (1) Asthma (2) Dyslipidemia (3) GERD (gastroesophageal reflux disease) (4) Kidney stone (5) OAB (overactive bladder) (6) Ovarian cyst (7) PTSD (post-traumatic stress disorder) (8) Seizures (9) Vaginal delivery Surgical Problems: (1) H/O colonoscopy (2) H/O esophagogastroduodenoscopy (3) H/O foot surgery (4) S/P laparoscopic cholecystectomy (5) S/P removal of ovarian cyst (6) Status post Mohs surgery Family History Diabetes mellitus FATHER GRANDMOTHER FH: cancer FATHER FH: gallbladder disease FH: heart disease FH: seizures MOTHER Social History Smoking Status: Current Every Day Smoker Alcohol Use: none Drug Use: none Marital Status: in relationship Housing Status: lives with family Occupation Status: unemployed Current/Historical Medications Scheduled Control Pills ( Control Pills), 1 TAB PO QAM Folic Acid (Folvite), 3 MG PO QAM Lamotrigine (Lamotrigine), 200 MG PO BID Levetiracetam (Keppra), 500 MG PO BID Levothyroxine Sodium (Levothyroxine Sodium), 50 MCG PO DAILY Omeprazole (Prilosec), 40 MG PO DAILY Ondasetron Odt (Zofran Odt), 4 MG SL Q6H Oxybutynin Chloride (Ditropan), 5 MG PO HS Sulfa/Trimethoprim (Bactrim Ds 800MG/160MG), 1 TAB PO BID Scheduled PRN Acetaminophen (Tylenol), 650 MG PO DIRECTED PRN for Headache Albuterol Hfa (Ventolin Hfa), 2 PUFFS INH UD PRN for Asthma Symptoms Albuterol Sulf (Albuterol Sulfate), 1 DOSE PO Q4 PRN for Shortness of Breath Hydrocodone/Acetaminophen 5MG/325MG ([place] 5MG/325MG), 1-2 TABLET PO Q6 PRN for Pain Allergies Coded Allergies: Hydromorphone (Verified Allergy, Severe, Respirations stopped., 04/17/17) Amoxicillin (Verified Allergy, Intermediate, RASH, 04/17/17) Morphine (Verified Allergy, Intermediate, HIVES, 04/17/17) Oxycodone (Verified Allergy, Intermediate, Hives, 04/17/17) Adhesives (Verified Adverse Reaction, Mild, RASH, 04/17/17) Physical Exam Vital Signs Date Time Temp Pulse Resp B/P (MAP) Pulse Ox O2 Delivery O2 Flow Rate FiO2 04/17/17 16:45 79 16 122/66 96 Room Air 04/17/17 15:26 82 17 105/53 97 Room Air 04/17/17 13:05 83 18 147/89 100 Room Air 04/17/17 12:30 85 23 106/61 99 Room Air 04/17/17 12:30 82 04/17/17 11:59 36.7 90 18 126/86 97 Room Air Physical Exam GENERAL: Patient is a healthy-appearing well-nourished female HEAD: Normocephalic atraumatic EYES: Ocular movements intact pupils equal and react to light OROPHARYNX mucous membranes are moist no exudates present no erythema or edema present NECK: Supple no nuchal rigidity CHEST: Good equal expansion LUNGS: Clear and equal to auscultation CARDIAC: Normal S1 and S2 ABDOMEN: Soft nontender no guarding BACK: No CVA tenderness EXTREMITIES: No pain upon palpation normal muscle strength in all groups no clubbing cyanosis or edema NEURO: Patient is following commands and answering questions appropriately. Alert and oriented x3 Cranial Nerves 2-12 grossly intact Medical Decision & Procedures ER Provider Diagnostic Interpretation: Radiology results as stated below per my review and radiologist interpretation: ABDOMEN AND PELVIS CT WITH IV AND ORAL CONTRAST CT DOSE: 903.47 mGy.cm HISTORY: Pt c/o RLQ abd pain, hx of kidney stones TECHNIQUE: Multiaxial CT images of the abdomen and pelvis were performed following the use of intravenous and oral contrast. A dose lowering technique was utilized adhering to the principles of ALARA. COMPARISON STUDY: Abdomen and pelvis CT 04/18/2016. FINDINGS: The lung bases are clear. No pneumoperitoneum. No pneumatosis. Bilateral L5 spondylolysis with associated grade I anterolisthesis. Cholecystectomy. Borderline hepatic steatosis. The spleen, adrenal glands, pancreas, and kidneys are unremarkable. No hydronephrosis. No retroperitoneal lymphadenopathy. The bladder, uterus, and ovaries are unremarkable. No bowel wall thickening or obstruction. Normal appendix. IMPRESSION: 1. Normal appendix. 2. No bowel wall thickening or obstruction. 3. Normal kidneys. No hydronephrosis. 4. Cholecystectomy. Electronically signed by: Neo Young M.D. 04/17/2017 3:18 PM Dictated Date/Time: 04/17/2017 3:14 PM Laboratory Results 04/17/17 12:12 Red Blood Count 4.93, Mean Corpuscular Volume 90.9, Mean Corpuscular Hemoglobin 31.8, Mean Corpuscular Hemoglobin Concent 35.0, Mean Platelet Volume 9.6, Neutrophils (%) (Auto) 56.4, Lymphocytes (%) (Auto) 27.3, Monocytes (%) (Auto) 7.0, Eosinophils (%) (Auto) 8.7, Basophils (%) (Auto) 0.3, Neutrophils # (Auto) 4.37, Lymphocytes # (Auto) 2.11, Monocytes # (Auto) 0.54, Eosinophils # (Auto) 0.67, Basophils # (Auto) 0.02 04/17/17 12:12 Test 04/17/17 12:12 04/17/17 12:30 White Blood Count 7.73 K/uL (4.8-10.8) Red Blood Count 4.93 M/uL (4.2-5.4) Hemoglobin 15.7 g/dL (12.0-16.0) Hematocrit 44.8 % (37-47) Mean Corpuscular Volume 90.9 fL (80-100) Mean Corpuscular Hemoglobin 31.8 pg (25-34) Mean Corpuscular Hemoglobin Concent 35.0 g/dl (32-36) Platelet Count 274 K/uL (130-400) Mean Platelet Volume 9.6 fL (7.4-10.4) Neutrophils (%) (Auto) 56.4 % Lymphocytes (%) (Auto) 27.3 % Monocytes (%) (Auto) 7.0 % Eosinophils (%) (Auto) 8.7 % Basophils (%) (Auto) 0.3 % Neutrophils # (Auto) 4.37 K/uL (1.4-6.5) Lymphocytes # (Auto) 2.11 K/uL (1.2-3.4) Monocytes # (Auto) 0.54 K/uL (0.11-0.59) Eosinophils # (Auto) 0.67 K/uL (0-0.5) Basophils # (Auto) 0.02 K/uL (0-0.2) RDW Standard Deviation 43.9 fL (36.4-46.3) RDW Coefficient of Variation 13.3 % (11.5-14.5) Immature Granulocyte % (Auto) 0.3 % Immature Granulocyte # (Auto) 0.02 K/uL (0.00-0.02) Anion Gap 7.0 mmol/L (3-11) Est Creatinine Clear Calc Drug Dose 126.3 ml/min Estimated GFR () 111.9 Estimated GFR (Non- 96.6 BUN/Creatinine Ratio 12.0 (10-20) Calcium Level 8.9 mg/dl (8.5-10.1) Total Bilirubin 0.5 mg/dl (0.2-1) Direct Bilirubin < 0.1 mg/dl (0-0.2) Aspartate Amino Transf (AST/SGOT) 16 U/L (15-37) Alanine Aminotransferase (ALT/SGPT) 28 U/L (12-78) Alkaline Phosphatase 86 U/L (45-117) Total Protein 7.6 gm/dl (6.4-8.2) Albumin 3.5 gm/dl (3.4-5.0) Lipase 98 U/L (73-393) Urine Color YELLOW Urine Appearance CLOUDY (CLEAR) Urine pH 6.0 (4.5-7.5) Urine Specific [place] 1.024 (1.000-1.030) Urine Protein NEG (NEG) Urine Glucose (UA) NEG (NEG) Urine Ketones NEG (NEG) Urine Occult Blood NEG (NEG) Urine Nitrite NEG (NEG) Urine Bilirubin NEG (NEG) Urine Urobilinogen NEG (NEG) Urine Leukocyte Esterase TRACE (NEG) Urine WBC (Auto) 5-10 /hpf (0-5) Urine RBC (Auto) 0-4 /hpf (0-4) Urine Hyaline Casts (Auto) 10-30 /lpf (0-5) Urine Epithelial Cells (Auto) >30 /lpf (0-5) Urine Bacteria (Auto) 1+ (NEG) Urine Pathogenic Casts /lpf (0) Urine Mucus PRESENT (NONE PRSENT) Urine Test NEG (NEG) Date/Time Source Procedure Growth Status 04/17/17 12:30 Urine , Clean Catch Urine Culture - Final GREATER THAN THREE TYPES OF ORGANISMS... Complete Labs reviewed by ED physician. Medications Administered Medications (Trade) Dose Ordered Sig/Miroslava Route Start Time Stop Time Status Last Admin Dose Admin Ketorolac Tromethamine (Toradol Inj) 30 mg NOW STAT IV 04/17/17 12:12 04/17/17 12:14 DC 04/17/17 12:27 30 MG Metoclopramide HCl (Reglan Inj) 10 mg NOW STAT IV 04/17/17 12:12 04/17/17 12:14 DC 04/17/17 12:26 10 MG Sodium Chloride 1,000 ml @ 999 mls/hr Q1H1M STAT IV 04/17/17 12:12 04/17/17 13:12 DC 04/17/17 12:27 999 MLS/HR Ceftriaxone Sodium (Rocephin Inj) 1 gm NOW STAT IV 04/17/17 13:24 04/17/17 13:25 DC 04/17/17 13:33 1 GM ED Course 1207: Past medical records reviewed. The patient was evaluated in room B8. A complete history and physical examination was performed. 1212: Sodium Chloride 1000 ml @ 999 mls/hr IV, Reglan Inj 10mg IV, Toradol Inj 30mg IV 1324: Rocephin Inj 1gm IV 1555: Upon reexamination the patient is feeling well. I discussed results and treatment plan with the patient. She verbalizes agreement and understanding. The patient is ready for discharge. Medical Decision Differential diagnosis: Etiologies such as appendicitis, diverticulitis, PUD, biliary pathology, UTI, pancreatitis, obstruction, mesenteric ischemia, aortic pathology, infections, inflammatory bowel disease, renal colic, as well as others were entertained. This is a 21-year-old female who presents emergency department complaining of acute abdominal pain. This is a 21-year-old female who was sent in by her primary care physician's office for CT scan. The patient has normal CBC normal renal profile normal liver profile normal lipase. She does have white blood cells in her urine and therefore I will treat her for urinary tract infection. An IV was established, patient given Toradol, Zofran. Serial abdominal examinations were performed on this patient in the emergency department and at no time did the patient exhibited a surgical abdomen. The patient's CAT scan is being read as normal. I do believe that the patient is well enough to be discharged home. I stressed the need for follow-up with the patient's primary care physician. Patient was in agreement with the treatment plan. Medication Reconcilliation Current Medication List: was personally reviewed by me Blood Pressure Screening Patient's blood pressure: Normal blood pressure Impression Primary Impression: Abdominal pain Additional Impression: UTI (urinary tract infection) Scribe Attestation The scribe's documentation has been prepared under my direction and personally reviewed by me in its entirety. I confirm that the note above accurately reflects all work, treatment, procedures, and medical decision making performed by me. Departure Information Dispostion Home / Self-Care Prescriptions Sulfa/Trimethoprim (Bactrim Ds 800MG/160MG) Tab 1 TAB PO BID for 7 Days, #14 TAB Prov: Ady Carnes MD 04/17/17 Ondasetron Odt (ZOFRAN ODT) 4 Mg Tab 4 MG SL Q6H for Nausea, #6 TAB Prov: Ady Carnes MD 04/17/17 Referrals Melissa Kolb D.O. (PCP) Forms HOME CARE DOCUMENTATION FORM, IMPORTANT VISIT INFORMATION, School Instructions, Work Instructions Patient Instructions Abdominal Pain - [facility], ED UTI Cystitis Female, My [facility] Additional Instructions You received narcotic or benzodiazepene medication while in the emergency room today. This is an addictive medication that may cause drowziness as well as constipation. Do not drive, operate heavy machinery, or drink alcohol under the influence of this medication. You have been examined and treated today on an emergency basis only. This is not a substitute for, or an effort to provide, complete comprehensive medical care. It is impossible to recognize and treat all injuries or illnesses in a single emergency department visit. It is therefore important that you follow up closely with Dr Kolb. Call as soon as possible for an appointment. Thank you for your time and consideration. I look forward to speaking with you again soon. Please don't hesitate to call us if you have any questions. Problem Qualifiers Primary Impression: Abdominal pain Abdominal location: generalized Qualified Codes: R10.84 - Generalized abdominal pain Additional Impression: UTI (urinary tract infection) Urinary tract infection type: acute cystitis Hematuria presence: without hematuria Qualified Codes: N30.00 - Acute cystitis without hematuria
[2017-04-17 12:28] LABS: BASO % 0.3 %; BASO ABS # 0.02 K/uL (0-0.2); COMPLETE YES; EOS % 8.7 %; HEMATOCRIT 44.8 % (37-47); IG% 0.3 %; LYMPH % 27.3 %; LYMPH ABS # 2.11 K/uL (1.2-3.4); MEAN CELL VOLUME 90.9 fL (80-100); MEAN CORPUSCULAR HEMOGLOBIN 31.8 pg (25-34); MEAN PLATELET VOLUME 9.6 fL (7.4-10.4); NEUT % 56.4 %; PLATELET COUNT 274 K/uL (130-400); RED BLOOD COUNT 4.93 M/uL (4.2-5.4); WHITE BLOOD COUNT 7.73 K/uL (4.8-10.8)
[2017-04-17] MEDS ORDERED: OPTIRAY 320 IV PRN (12:30)
[2017-04-17 12:52] LABS: ALT/SGPT 28 U/L (12-78); AST/SGOT 16 U/L (15-37); BLOOD UREA NITROGEN 10 mg/dl (7-18); CALCIUM 8.9 mg/dl (8.5-10.1); CARBON DIOXIDE 27 mmol/L (21-32); CHLORIDE 105 mmol/L (98-107); CREATININE 0.86 mg/dl (0.60-1.20); GLUCOSE 82 mg/dl (70-99); POTASSIUM 3.7 mmol/L (3.5-5.1); SODIUM 139 mmol/L (136-145)
[2017-04-17 12:54] LABS: ALKALINE PHOSPHATASE 86 U/L (45-117)
[2017-04-17 12:58] LABS: URINE APPEARANCE CLOUDY (CLEAR); URINE BILIRUBIN NEG (NEG); URINE COLOR YELLOW; URINE EPITHELIAL CELL AUTO >30 /lpf (0-5); URINE NITRITE NEG (NEG); URINE SPECIFIC GRAVITY 1.024 (1.000-1.030); UROBILINOGEN NEG (NEG)
[2017-04-17 13:02] LABS: MANUAL MICROSCOPIC REQUIRED? NO; REVIEW REQ? YES
[2017-04-17 13:22] LABS: URINE MUCUS PRESENT (NONE PRSENT)
[2017-04-17] MEDS ORDERED: CEFTRIAXONE SOD INJ 1 GM ADDVIAL IV STA (13:24)
[2017-04-17 13:30] LABS: ZZUR CULT IF INDIC CLEAN CATCH YES
--- NOTE | 2017-04-17 15:20 | DIAGNOSTIC IMAGING REPORT ---
ABDOMEN AND PELVIS CT WITH IV AND ORAL CONTRAST CT DOSE: 903.47 mGy.cm HISTORY: Pt c/o RLQ abd pain, hx of kidney stones TECHNIQUE: Multiaxial CT images of the abdomen and pelvis were performed following the use of intravenous and oral contrast. A dose lowering technique was utilized adhering to the principles of ALARA. COMPARISON STUDY: Abdomen and pelvis CT 04/18/2016. FINDINGS: The lung bases are clear. No pneumoperitoneum. No pneumatosis. Bilateral L5 spondylolysis with associated grade I anterolisthesis. Cholecystectomy. Borderline hepatic steatosis. The spleen, adrenal glands, pancreas, and kidneys are unremarkable. No hydronephrosis. No retroperitoneal lymphadenopathy. The bladder, uterus, and ovaries are unremarkable. No bowel wall thickening or obstruction. Normal appendix. IMPRESSION: 1. Normal appendix. 2. No bowel wall thickening or obstruction. 3. Normal kidneys. No hydronephrosis. 4. Cholecystectomy. Electronically signed by: Neo Young M.D. 04/17/2017 3:18 PM Dictated Date/Time: 04/17/2017 3:14 PM
[2017-04-17] MEDS ORDERED: ONDA4TAB10 SL (16:14)
[2017-04-17] MEDS ORDERED: SULF800T23 PO (16:14)
[2017-04-17 16:45] VITALS: BP 122/66; PULSE 79; O2SAT 96
== END 2017-04-17 16:49 | disposition home or self-care (01) ==
LOC: C.EDB 11:56
DX: N39.0 Urinary tract infection, site not specified (principal); J45.909 Unspecified asthma, uncomplicated; E78.5 Hyperlipidemia, unspecified; K21.9 Gastro-esophageal reflux disease without esophagitis; Z87.442 Personal history of urinary calculi; F43.10 Post-traumatic stress disorder, unspecified; Z90.49 Acquired absence of other specified parts of digestive tract; Z83.3 Family history of diabetes mellitus; Z80.9 Family history of malignant neoplasm, unspecified; Z82.0 Family history of epilepsy and other diseases of the nervous system; F17.210 Nicotine dependence, cigarettes, uncomplicated; Z79.3 Long term (current) use of hormonal contraceptives; Z79.899 Other long term (current) drug therapy

== ENCOUNTER 2017-07-28 01:20 | Emergency (ER) | payer OTHER ==
[~2017-07-28] VITALS: Ht 170.2 cm; Wt 102.1 kg
[~2017-07-28 01:20] MED LIST changes: +DTR/5 PO; -FOLI1TAB7 PO; +FOLI1TAB8 PO; +ONDA4TAB10 SL; -OXYB5TAB74 PO
[2017-07-28 01:26] VITALS: TEMP 36.6; Ht 170.2 cm; Wt 102.1 kg
[2017-07-28] MEDS ORDERED: LAMO200T35 PO (02:11)
[2017-07-28 02:38] LABS: BASO % 0.2 %; BASO ABS # 0.01 K/uL (0-0.2); COMPLETE YES; EOS % 4.7 %; IG% 0.3 %; MEAN CELL VOLUME 90.5 fL (80-100); MEAN CORPUSCULAR HEMOGLOBIN 32.3 pg (25-34); MEAN CORPUSCULAR HGB CONC 35.7 g/dl (32-36); MEAN PLATELET VOLUME 9.9 fL (7.4-10.4); MONO % 9.8 %; PLATELET COUNT 244 K/uL (130-400); RED BLOOD COUNT 4.64 M/uL (4.2-5.4); WHITE BLOOD COUNT 6.66 K/uL (4.8-10.8)
[2017-07-28 02:45] LABS: BUN/CREATININE RATIO 14.3 (10-20); CALCIUM 8.8 mg/dl (8.5-10.1); CREATININE 0.8 mg/dl (0.60-1.20); POTASSIUM 3.6 mmol/L (3.5-5.1)
[2017-07-28 02:48] LABS: ALB/GLOB RATIO 0.8 (0.9-2); MAGNESIUM 1.9 mg/dl (1.8-2.4)
[2017-07-28 03:07] LABS: PREG INTERNAL NEGATIVE QC NEG CLEAR BACKGROUND; PREG INTERNAL POSITIVE QC POS CONTROL LINE; URINE APPEARANCE CLEAR (CLEAR); URINE BILIRUBIN NEG (NEG); URINE COLOR YELLOW; URINE EPITHELIAL CELL AUTO >30 /lpf (0-5); URINE NITRITE NEG (NEG); URINE SPECIFIC GRAVITY 1.022 (1.000-1.030); UROBILINOGEN NEG (NEG); ZZUR CULT IF INDIC CLEAN CATCH NO
[2017-07-28 03:10] LABS: MANUAL MICROSCOPIC REQUIRED? NO; REVIEW REQ? NO
[2017-07-28 03:24] LABS: BENZODIAZEPINE, URINE NEG (NEG); COCAINE,URINE NEG (NEG); PHENCYCLIDINE, URINE NEG (NEG)
[2017-07-28 04:24] VITALS: BP 133/91
[2017-07-28 04:26] VITALS: PULSE 113; O2SAT 97
[2017-07-29] MEDS ORDERED: PRED20TA2 PO (21:28)
[2017-07-29] MEDS ORDERED: DOXY100C2 PO (21:28)
--- NOTE | 2017-07-29 22:57 | EMERGENCY ROOM VISIT NOTE ---
History First contact with patient: 02:26 Chief Complaint: SEIZURE Stated Complaint: SEIZURE Nursing Triage Summary: Pt had two seizures tonight witnessed by mother and boyfriend. Second seizure was when mother called 911, time of dispatch for EMS was [id number]. Pt had no further seizure activity under EMS care and arrives with GCS 15. Last seizure was in November. Pt did not fall during seizures tonight. Pt complains of headache and dizziness. Pt has extensive Hx including TIA at age 15, migraines, HTN, ashtma, borderline diabetes, tachycardia. History of Present Illness The patient is a 22 year old female who presents to the Emergency Room with complaints of 2 seizures in the past few hours. The patient has a history of seizures in the past, but has not had one for several months. The patient evidently lives at home with her mother and her boyfriend, who witnessed the seizures. The patient did have a postictal phase of 10-15 minutes after braking from the seizures. The patient does not have pain of her mouth, neck, and extremities. She did not defecate or urinate herself. She does have a mild headache that is improving. She does follow with neurology and states that she is taking her medication as prescribed. Review of Systems More than 10 systems were reviewed and otherwise negative with the exception of history of present illness. Past Medical/Surgical History Medical Problems: (1) Asthma (2) Dyslipidemia (3) GERD (gastroesophageal reflux disease) (4) Kidney stone (5) OAB (overactive bladder) (6) Ovarian cyst (7) PTSD (post-traumatic stress disorder) (8) Seizures (9) Vaginal delivery Surgical Problems: (1) H/O colonoscopy (2) H/O esophagogastroduodenoscopy (3) H/O foot surgery (4) S/P laparoscopic cholecystectomy (5) S/P removal of ovarian cyst (6) Status post Mohs surgery Family History Diabetes mellitus FATHER GRANDMOTHER FH: cancer FATHER FH: gallbladder disease FH: heart disease FH: seizures MOTHER Social History Smoking Status: Former Smoker Alcohol Use: none Drug Use: none Marital Status: in relationship Housing Status: lives with family Occupation Status: unemployed Current/Historical Medications Scheduled Control Pills ( Control Pills), 1 TAB PO QAM Doxycycline Hyclate (Vibramycin), 100 MG PO BID Folic Acid (Folvite), 3 MG PO QAM Lamotrigine (Lamictal), 200 MG PO BID Levetiracetam (Keppra), 500 MG PO BID Levothyroxine Sodium (Levothyroxine Sodium), 50 MCG PO DAILY Omeprazole (Prilosec), 40 MG PO DAILY Prednisone (Prednisone Tab), 3 TAB PO DAILY Scheduled PRN Acetaminophen (Tylenol), 650 MG PO DIRECTED PRN for Headache Albuterol Hfa (Ventolin Hfa), 2 PUFFS INH UD PRN for Asthma Symptoms Albuterol Sulf (Albuterol Sulfate), 1 DOSE PO Q4 PRN for Shortness of Breath Hydrocodone/Acetaminophen 5MG/325MG ([place] 5MG/325MG), 1-2 TABLET PO Q6 PRN for Pain Physical Exam Vital Signs Date Time Temp Pulse Resp B/P (MAP) Pulse Ox O2 Delivery O2 Flow Rate FiO2 07/28/17 04:26 113 14 97 07/28/17 04:24 133/91 07/28/17 04:11 111 22 96 07/28/17 04:06 109 96 07/28/17 04:01 117/69 07/28/17 03:51 107 18 97 07/28/17 03:36 108 24 97 07/28/17 03:31 114/67 07/28/17 03:30 109 22 96 07/28/17 03:15 111 96 07/28/17 03:00 110 19 96 07/28/17 02:45 107 24 97 07/28/17 02:40 109 27 97 Room Air 07/28/17 02:31 119/71 07/28/17 02:25 108 20 98 07/28/17 02:10 109 25 98 07/28/17 02:01 143/88 07/28/17 01:55 102 99 07/28/17 01:40 111 99 07/28/17 01:35 114 24 98 07/28/17 01:32 118/83 07/28/17 01:30 106 20 99 07/28/17 01:26 36.6 110 23 140/101 99 Room Air 07/28/17 01:25 104 18 100 Room Air 07/28/17 01:25 111 07/28/17 01:24 140/101 Physical Exam VITALS: Vitals are noted on the nurse's note and reviewed by myself. Vital signs stable. GENERAL: Well-developed, well-nourished, white female, who is in no acute distress and resting comfortably. Patient is cooperative with the examination. GCS 15 HEAD: Normocephalic atraumatic. EARS: External ear normal. External auditory canals clear, tympanic membranes pearly beyer without erythema or effusion bilaterally. EYES: Pupils equal round and reactive to light and accommodation. Conjunctivae without injection, sclerae without icterus. Extraocular movements intact. NOSE: Patent, turbinates without inflammation or discharge. MOUTH: Mucous membranes moist. Tonsils are not enlarged. Pharynx without erythema, blood, or exudate. Uvula midline. Airway patent. NECK: Supple without nuchal rigidity. No lymphadenopathy. No thyromegaly. Cervical spine is nontender. HEART: Regular rate and rhythm without murmurs gallops or rubs. LUNGS: Clear to auscultation bilaterally without wheezes, rales or rhonchi. No retractions or accessory muscle use. ABDOMEN: Positive normal bowel sounds x 4. Soft, nontender, without masses or organomegaly. No guarding or rebound tenderness. MUSCULOSKELETAL: No muscle atrophy, erythema, or edema noted. Full range of motion without joint tenderness in all extremities. No tenderness to palpation. Normal gait. Strength 5/5 throughout. NEURO: Patient was alert and oriented to person place and time. CN II through XII grossly intact. Deep tendon reflexes 2+ throughout. No focal neurological deficits SKIN: The skin was without rashes, erythema, edema, or bruising. Capillary reflex less than 2 seconds. Medical Decision & Procedures Laboratory Results 07/28/17 00:49 Red Blood Count 4.64, Mean Corpuscular Volume 90.5, Mean Corpuscular Hemoglobin 32.3, Mean Corpuscular Hemoglobin Concent 35.7, Mean Platelet Volume 9.9, Neutrophils (%) (Auto) 55.0, Lymphocytes (%) (Auto) 30.0, Monocytes (%) (Auto) 9.8, Eosinophils (%) (Auto) 4.7, Basophils (%) (Auto) 0.2, Neutrophils # (Auto) 3.67, Lymphocytes # (Auto) 2.00, Monocytes # (Auto) 0.65, Eosinophils # (Auto) 0.31, Basophils # (Auto) 0.01 07/28/17 00:49 Test 07/28/17 00:49 07/28/17 01:50 White Blood Count 6.66 K/uL (4.8-10.8) Red Blood Count 4.64 M/uL (4.2-5.4) Hemoglobin 15.0 g/dL (12.0-16.0) Hematocrit 42.0 % (37-47) Mean Corpuscular Volume 90.5 fL (80-100) Mean Corpuscular Hemoglobin 32.3 pg (25-34) Mean Corpuscular Hemoglobin Concent 35.7 g/dl (32-36) Platelet Count 244 K/uL (130-400) Mean Platelet Volume 9.9 fL (7.4-10.4) Neutrophils (%) (Auto) 55.0 % Lymphocytes (%) (Auto) 30.0 % Monocytes (%) (Auto) 9.8 % Eosinophils (%) (Auto) 4.7 % Basophils (%) (Auto) 0.2 % Neutrophils # (Auto) 3.67 K/uL (1.4-6.5) Lymphocytes # (Auto) 2.00 K/uL (1.2-3.4) Monocytes # (Auto) 0.65 K/uL (0.11-0.59) Eosinophils # (Auto) 0.31 K/uL (0-0.5) Basophils # (Auto) 0.01 K/uL (0-0.2) RDW Standard Deviation 44.0 fL (36.4-46.3) RDW Coefficient of Variation 13.4 % (11.5-14.5) Immature Granulocyte % (Auto) 0.3 % Immature Granulocyte # (Auto) 0.02 K/uL (0.00-0.02) Anion Gap 6.0 mmol/L (3-11) Est Creatinine Clear Calc Drug Dose 135.5 ml/min Estimated GFR () 121.3 Estimated GFR (Non- 104.7 BUN/Creatinine Ratio 14.3 (10-20) Calcium Level 8.8 mg/dl (8.5-10.1) Magnesium Level 1.9 mg/dl (1.8-2.4) Total Bilirubin 0.3 mg/dl (0.2-1) Aspartate Amino Transf (AST/SGOT) 9 U/L (15-37) Alanine Aminotransferase (ALT/SGPT) 19 U/L (12-78) Alkaline Phosphatase 73 U/L (45-117) Total Protein 7.6 gm/dl (6.4-8.2) Albumin 3.4 gm/dl (3.4-5.0) Globulin 4.2 gm/dl (2.5-4.0) Albumin/Globulin Ratio 0.8 (0.9-2) Urine Color YELLOW Urine Appearance CLEAR (CLEAR) Urine pH 6.0 (4.5-7.5) Urine Specific [place] 1.022 (1.000-1.030) Urine Protein NEG (NEG) Urine Glucose (UA) NEG (NEG) Urine Ketones NEG (NEG) Urine Occult Blood 1+ (NEG) Urine Nitrite NEG (NEG) Urine Bilirubin NEG (NEG) Urine Urobilinogen NEG (NEG) Urine Leukocyte Esterase NEG (NEG) Urine WBC (Auto) 1-5 /hpf (0-5) Urine RBC (Auto) 5-10 /hpf (0-4) Urine Hyaline Casts (Auto) 1-5 /lpf (0-5) Urine Epithelial Cells (Auto) >30 /lpf (0-5) Urine Bacteria (Auto) NEG (NEG) Urine Test NEG (NEG) Urine Opiates Screen NEG (NEG) Urine Methadone, Qualitative NEG (NEG) Urine Barbiturates NEG (NEG) Urine Phencyclidine (PCP) Level NEG (NEG) Ur Amphetamine/Methamphetamine NEG (NEG) MDMA (Ecstasy) Screen NEG (NEG) Urine Benzodiazepines Screen NEG (NEG) Urine Cocaine Metabolite NEG (NEG) Urine Marijuana (THC) NEG (NEG) ED Course Physical exam and history were performed. Nursing notes, EMR, and Medication List were personally reviewed. Patient appears to have suffered a seizure 2 earlier today. She has a history of seizures, and today had symptoms similar to her normal episodes. On examination the patient appears well. IV access was established and labs were obtained. She was cared for under seizure options. The patient's blood work is as above and was reviewed. She does not have a significantly elevated white blood cell count, worsening, bandemia, or significant electrolyte imbalance. The patient remained in stable condition for several hours here in the department. She overall appears well for discharge home. She is to contact her neurologist for further care and management. She is otherwise medevac to the ER with any new, worsening, or concerning symptoms The chart was completed utilizing [employer] Speech Voice Recognition Software. Grammatical errors, random word insertions, pronoun errors, and incomplete sentences are an occasional consequence of this system due to software limitations, ambient noise, and hardware issues. Any formal questions or concerns about the content, text, or information contained within the body of this dictation should be directly addressed to the provider for clarification. . Medical Decision Differential diagnosis: Etiologies such as infection, hypoglycemia, electrolyte abnormalities, cardiac sources, intracerebral event, trauma, toxicologic, neurologic, as well as others were entertained. Impression Primary Impression: Seizure Departure Information Dispostion Home / Self-Care Condition FAIR Forms HOME CARE DOCUMENTATION FORM, IMPORTANT VISIT INFORMATION Patient Instructions My [facility] Additional Instructions You were seen and evaluated today on an emergency basis only. This is not a substitute for, or an effort to provide, complete comprehensive medical care. It is not possible to recognize and treat all injuries or illnesses in a single emergency department visit. For this reason it is recommended that you followup with your neurologist for ongoing care and evaluation. Call in the morning to make an appointment. Continue your medications as prescribed. You are welcome to return to the emergency department anytime with new, worsening, or concerning symptoms.
== END 2017-07-28 04:32 | disposition home or self-care (01) ==
LOC: EDBD 01:20 → C.EDB 01:21
DX: R56.9 Unspecified convulsions (principal); Z86.73 Personal history of transient ischemic attack (TIA), and cerebral infarction without residual deficits; I10 Essential (primary) hypertension; J45.909 Unspecified asthma, uncomplicated; R73.03 Prediabetes; K21.9 Gastro-esophageal reflux disease without esophagitis; N32.81 Overactive bladder; F43.10 Post-traumatic stress disorder, unspecified; Z83.3 Family history of diabetes mellitus; Z80.9 Family history of malignant neoplasm, unspecified; Z82.0 Family history of epilepsy and other diseases of the nervous system; Z87.891 Personal history of nicotine dependence; Z79.3 Long term (current) use of hormonal contraceptives; Z79.899 Other long term (current) drug therapy

== ENCOUNTER 2017-07-29 19:04 | Emergency (ER) | payer OTHER ==
[~2017-07-29] VITALS: Ht 170.2 cm; Wt 101.4 kg
[~2017-07-29 19:04] MED LIST changes: +LAMO200T35 PO
[2017-07-29 19:07] VITALS: TEMP 36.6; Ht 170.2 cm; Wt 101.4 kg
[2017-07-29] MEDS ORDERED: ALBUT/IPRATROP 3MG/0.5MG NEB 3 ML VIAL INH STA (19:20)
[2017-07-29] MEDS ORDERED: KETOROLAC TROMETHAMINE 30 MG/ML VIAL IV STA (19:20)
[2017-07-29] MEDS ORDERED: SODIUM CHLORIDE 0.9% 1000ML 1,000 ML IV STA (19:20)
[2017-07-29] MEDS ORDERED: METHYLPREDNISOLONE 125 MG VIAL IV STA (19:20)
[2017-07-29] MEDS ORDERED: OPTIRAY 320 IV PRN (19:45)
[2017-07-29 19:59] LABS: POINT OF CARE TROPONIN I < 0.030 ng/ml (0-0.045)
[2017-07-29 20:00] LABS: URINE APPEARANCE CLEAR (CLEAR); URINE BILIRUBIN NEG (NEG); URINE COLOR YELLOW; URINE EPITHELIAL CELL AUTO >30 /lpf (0-5); URINE NITRITE NEG (NEG); URINE PH 5.5 (4.5-7.5); URINE SPECIFIC GRAVITY 1.028 (1.000-1.030); UROBILINOGEN NEG (NEG)
[2017-07-29 20:02] LABS: INR 0.9 (0.9-1.1); MANUAL MICROSCOPIC REQUIRED? NO; PROTHROMBIN TIME (PATIENT) 9.7 SECONDS (9.0-12.0); REVIEW REQ? NO
[2017-07-29 20:17] LABS: ALT/SGPT 28 U/L (12-78); BLOOD UREA NITROGEN 10 mg/dl (7-18); BUN/CREATININE RATIO 13.4 (10-20); CALCIUM 8.9 mg/dl (8.5-10.1); CARBON DIOXIDE 26 mmol/L (21-32); CHLORIDE 106 mmol/L (98-107); CREATININE 0.76 mg/dl (0.60-1.20); GLUCOSE 82 mg/dl (70-99); POTASSIUM 3.5 mmol/L (3.5-5.1); SODIUM 139 mmol/L (136-145)
[2017-07-29 20:22] LABS: ALKALINE PHOSPHATASE 76 U/L (45-117); AST/SGOT 20 U/L (15-37)
[2017-07-29 20:28] LABS: BASO % 0.4 %; BASO ABS # 0.03 K/uL (0-0.2); COMPLETE YES; EOS % 5.1 %; HEMATOCRIT 43.6 % (37-47); IG% 0.2 %; LYMPH % 23.1 %; LYMPH ABS # 1.94 K/uL (1.2-3.4); MEAN CELL VOLUME 90.8 fL (80-100); MEAN CORPUSCULAR HGB CONC 34.2 g/dl (32-36); MEAN PLATELET VOLUME 9.9 fL (7.4-10.4); MONO % 10.7 %; NEUT % 60.5 %; PLATELET COUNT 266 K/uL (130-400); WHITE BLOOD COUNT 8.41 K/uL (4.8-10.8)
--- NOTE | 2017-07-29 20:46 | DIAGNOSTIC IMAGING REPORT ---
(CHEST FOR PE) ANGIO WITH CLINICAL HISTORY: 22 years-old Female presenting with ^EVALUATE FOR PE, chest pain, clinical concern for pulmonary embolus. TECHNIQUE: Multidetector CT angiography of the chest was performed after administration of intravenous contrast. 3-D volumetric and/or maximum intensity projection (MIP) images were subsequently reconstructed for review. IV contrast: 91 mL of Optiray 320. A dose lowering technique was used consistent with the principles of ALARA (as low as reasonably achievable). COMPARISON: None. CT DOSE (mGy.cm): The estimated cumulative dose is 625.20 mGy.cm. FINDINGS: Hydraulic Controls Technician topogram: Unremarkable. Pulmonary vasculature: The study is suboptimal for the assessment of pulmonary emboli secondary to timing of the contrast bolus. This limits evaluation of segmental and subsegmental pulmonary emboli. Allowing for this, no filling defect within central pulmonary arteries to suggest pulmonary embolus. Main pulmonary artery is not enlarged. No flattening of the interventricular septum. No intracardiac intracardiac filling defect. No reflux of contrast into the hepatic veins. Remaining chest: On soft tissue windows, normal thyroid and thoracic inlet. No axillary, supraclavicular, hilar, or mediastinal lymphadenopathy. Normal aorta. Normal heart size. No pericardial or pleural effusion. Cholecystectomy clips. On lung windows, solid subpleural 3 mm nodule in the medial basal left lower lobe (series 4 image 94). Additional solid nodularity at the superior segment of the left lower lobe. Extensive bandlike opacities as well as patchy groundglass with smooth interlobular septal thickening in the left apex and extending into the lingula. Bandlike atelectasis also noted in the right middle lobe. On bone windows, normal osseous structures. IMPRESSION: 1. No evidence of pulmonary embolus. 2. Patchy opacities in the left upper lobe concerning for pneumonia. 3. Scattered areas of atelectasis. 4. Multiple solid nodules in the left lower lobe may also relate to an infectious etiology. Electronically signed by: Jose Braden M.D. 07/29/2017 8:44 PM Dictated Date/Time: 07/29/2017 8:38 PM
[2017-07-29] MEDS ORDERED: DOXYCYCLINE HYCLATE 100 MG CAP PO STA (21:22)
[2017-07-29] MEDS ORDERED: PRED20TA2 PO (21:28)
[2017-07-29] MEDS ORDERED: DOXY100C2 PO (21:28)
[2017-07-29 21:39] VITALS: BP 138/94; PULSE 106; O2SAT 95
--- NOTE | 2017-07-29 22:38 | EMERGENCY ROOM VISIT NOTE ---
ED Visit Note First contact with patient: 19:09 Chief Complaint: Chest pain. History of Present Illness: Ms. Monahan is a 22 year-old white female who ambulates into the ED accompanied by a male friend complaining of chest pain. Historically patient reports she has a history of left lower leg DVT, hypertension and tachycardia. She also reports she has a family history of heart disease in multiple grandparents. Patient reports a gradual onset of upper sternal chest pain that started 2 days ago. Since that time the pain has been constant but has waxed and waned in intensity. She describes her pain as a sharp stabbing sensation. Currently she rates her discomfort 03/24. The pain is radiating into the right upper chest. Her pain worsens with palpation and cough. She has not identified any alleviating factors related to the pain. She has not taken a medication for pain prior to arrival at the hospital. Associated with her pain she reports she feels like her heart is racing and intermittently she has been nauseated but has not vomited and she intermittently hears herself wheezing. Additionally she does report that she is currently a smoker and does take estrogen control. Patient denies fevers, chills, sweats, skin eruptions, skin color changes, orthopnea, dependent edema, claudication, cramping, recent surgery/inactivity/ extended travel, abdominal pain, diarrhea, constipation, rectal bleeding, black/ tarry stools, urinary symptoms, back/flank pain. Review of Systems: As noted above in history of present illness. All body systems were reviewed and found to be negative as noted above. Past Medical History: As previously noted, seizure disorder, kidney stones, status post cholecystectomy and removal of ovarian cysts, GERD, dyslipidemia, posttraumatic stress disorder, status post tonsillectomy, adenoidectomy and unspecified left knee surgery. Current Medications: Medications Dose Route/Sig Max Daily Dose Days Date Category Dose Instructions Lamictal (Lamotrigine) 200 Mg Tab 200 Mg PO BID 07/28/17 Reported Tama 5MG/325MG (Acetaminophen/Hydrocodone Bitart) Tab 1-2 Tablet PO Q6 PRN 04/06/17 Rx For Initial Treatment Prilosec (Omeprazole) 40 Mg Cap 40 Mg PO DAILY 04/06/17 Reported Keppra (Levetiracetam) 500 Mg Tab 500 Mg PO BID 01/22/17 Reported Levothyroxine Sodium 50 Mcg Tab 50 Mcg PO DAILY 01/22/17 Reported Albuterol Sulfate (Albuterol Sulf) 2.5 Mg/0.5 Ml Nebu 1 Dose PO Q4 PRN 08/22/16 Reported Tylenol (Acetaminophen) 325 Mg Tab 650 Mg PO DIRECTED PRN 07/12/16 Reported Ventolin Hfa (Albuterol) 200 Puffs/49021 Mcg Aers 2 Puffs INH UD PRN 05/05/16 Reported Control Pills (Miscellaneous) Tab 1 Tab PO QAM 05/05/16 Reported Folvite (Folic Acid) 1 Mg Tab 3 Mg PO QAM 05/05/16 Reported Allergies to Medications: Amoxicillin, hydromorphone, morphine, oxycodone. Social History: Patient is not employed; she feels safe in her home environment ; she admits to tobacco use and denies alcohol use. Physical Examination: Vital Signs: Date Time Temp Pulse Resp B/P (MAP) Pulse Ox O2 Delivery O2 Flow Rate FiO2 07/29/17 21:39 106 18 138/94 95 Room Air 07/29/17 20:41 109 07/29/17 19:07 36.6 118 18 151/101 97 Room Air GENERAL: 22-year-old female in mild distress due to symptoms, nontoxic-appearing , afebrile and hemodynamically stable. NEUROLOGICAL: Awake, alert and oriented to person, place and time. Answering questions appropriately and following commands. Normal gait. Good hand eye coordination. SKIN: Warm, dry and pink. No soft tissue eruptions or trauma noted. HEENT: Atraumatic and normocephalic. No erythema or tenderness over the frontal or maxillary sinuses. Panic membranes are not erythematous or edematous. PERRLA. Sclera white and conjunctiva pink without drainage. Nasal congestion was noted but no active drainage. Oral cavity moist and pink. Pharynx is nonerythematous or edematous. Speech normal. No lymphadenopathy. Trachea midline. No jugular venous distention. BACK: No tenderness over the bony cervical and thoracic spine. Nuchal rigidity or meningismus. No CVA tenderness. THORAX: Lungs sounds are increased in all spencer with scattered inspiratory wheezing. Equal bilaterally with symmetrical chest wall. No rales or rhonchi. Moderate tenderness over the upper sternum and just lateral into the right upper chest. I do not appreciate any bony deformity, bony crepitus, swelling, ecchymosis or subcutaneous air. No increase in respiratory effort or rate. HEART: Tachycardic rate and rhythm. No gallops, rubs or murmurs are appreciated. No lifts, heaves or thrills. PMI is not displaced. ABDOMEN: Flat, soft and nontender. Positive bowel sounds in all quadrants. No guarding, rigidity or organomegaly. EXTREMITIES: Moves all extremities well on command and with purpose. All distal neurovascular statuses are intact and equal bilaterally. No dependent edema or calf tenderness/cords. ED Course: Patient is assessed as noted above. Laboratory Testing: Test 07/29/17 19:35 07/29/17 19:39 Range/Units White Blood Count 8.41 4.8-10.8 K/uL Red Blood Count 4.80 4.2-5.4 M/uL Hemoglobin 14.9 12.0-16.0 g/dL Hematocrit 43.6 37-47 % Mean Corpuscular Volume 90.8 80-100 fL Mean Corpuscular Hemoglobin 31.0 25-34 pg Mean Corpuscular Hemoglobin Concent 34.2 32-36 g/dl Platelet Count 266 130-400 K/uL Mean Platelet Volume 9.9 7.4-10.4 fL Neutrophils (%) (Auto) 60.5 % Lymphocytes (%) (Auto) 23.1 % Monocytes (%) (Auto) 10.7 % Eosinophils (%) (Auto) 5.1 % Basophils (%) (Auto) 0.4 % Neutrophils # (Auto) 5.09 1.4-6.5 K/uL Lymphocytes # (Auto) 1.94 1.2-3.4 K/uL Monocytes # (Auto) 0.90 0.11-0.59 K/uL Eosinophils # (Auto) 0.43 0-0.5 K/uL Basophils # (Auto) 0.03 0-0.2 K/uL RDW Standard Deviation 45.1 36.4-46.3 fL RDW Coefficient of Variation 13.7 11.5-14.5 % Immature Granulocyte % (Auto) 0.2 % Immature Granulocyte # (Auto) 0.02 0.00-0.02 K/uL Prothrombin Time 9.7 9.0-12.0 SECONDS Prothromb Time International Ratio 0.9 0.9-1.1 Activated Partial Thromboplast Time 26.6 21.0-31.0 SECONDS Partial Thromboplastin Ratio 1.0 Urine Color YELLOW Urine Appearance CLEAR CLEAR Urine pH 5.5 4.5-7.5 Urine Specific [place] 1.028 1.000-1.030 Urine Protein NEG NEG Urine Glucose (UA) NEG NEG Urine Ketones NEG NEG Urine Occult Blood 3+ NEG Urine Nitrite NEG NEG Urine Bilirubin NEG NEG Urine Urobilinogen NEG NEG Urine Leukocyte Esterase TRACE NEG Urine WBC (Auto) 5-10 0-5 /hpf Urine RBC (Auto) >30 0-4 /hpf Urine Hyaline Casts (Auto) 1-5 0-5 /lpf Urine Epithelial Cells (Auto) >30 0-5 /lpf Urine Bacteria (Auto) 1+ NEG Sodium Level 139 136-145 mmol/L Potassium Level 3.5 3.5-5.1 mmol/L Chloride Level 106 98-107 mmol/L Carbon Dioxide Level 26 21-32 mmol/L Anion Gap 7.0 3-11 mmol/L Blood Urea Nitrogen 10 7-18 mg/dl Creatinine 0.76 0.60-1.20 mg/dl Est Creatinine Clear Calc Drug Dose 142.1 ml/min Estimated GFR () 129.1 Estimated GFR (Non- 111.3 BUN/Creatinine Ratio 13.4 10-20 Random Glucose 82 70-99 mg/dl Calcium Level 8.9 8.5-10.1 mg/dl Total Bilirubin 0.1 0.2-1 mg/dl Direct Bilirubin < 0.1 0-0.2 mg/dl Aspartate Amino Transf (AST/SGOT) 20 15-37 U/L Alanine Aminotransferase (ALT/SGPT) 28 12-78 U/L Alkaline Phosphatase 76 45-117 U/L Total Creatine Kinase 46 26-192 U/L Creatine Kinase MB < 0.5 0.5-3.6 ng/ml Creatine Kinase MB Ratio 0-3.0 Total Protein 8.1 6.4-8.2 gm/dl Albumin 3.7 3.4-5.0 gm/dl Lipase 109 73-393 U/L Bedside D-Dimer > 450 0-450 ng/mlFEU Bedside Troponin I < 0.030 0-0.045 ng/ml Chest CTA: Was reviewed by myself and read by the radiologist and showing no evidence of pulmonary emboli. It was noted that she had patchy opacities in the left upper lobe concerning for pneumonia. Also noted was scattered areas of atelectasis and multiple solid nodules in the left lower lung of questionable etiology. EKG: Was read by myself and reviewed with Dr. Hill; shows sinus tachycardia with a ventricular rate of 107 bpm. Normal axis, intervals and complexes. No acute ST changes indicating ischemia, injury or infarction. This was compared to a previous and shows no acute changes except for heart rate. Patient was hydrated with normal saline and received an albuterol/Atrovent nebulizer breathing treatment, 125 mg of Solu-Medrol IV and an albuterol/ Atrovent nebulizer breathing treatment. On reassessment after her breathing treatment she was clear to auscultation with increased air movements and and all wheezing had resolved; when questioned she reports she was feeling much better. Patient's case was reviewed with Dr. Hill; we agreed on diagnostic approach, treatment, disposition and plan. Prior to discharge patient received 100 mg of doxycycline by mouth for antibiotic coverage. Patient was educated about today's findings and instructed on her treatment plan ; she verbalized understanding and agreement with this plan. Clinical Impression: Left upper lobe pneumonia. Tachycardia. Chest pain. Left lower lobe solid nodules. Decision-Making: Initially my differential diagnosis I considered pneumonia, aspiration pneumonia, bronchitis, pleurisy, pulmonary embolism, pericarditis and other causes. Disposition: Patient discharged home in stable condition accompanied by male friend; prior to departure she was reassessed and subjectively reported she was feeling much better and reported easy breathing and rated her chest discomfort 5 /10. Plan: Patient was encouraged to use 2 puffs of her albuterol inhaler at home with spacer every 6 hours for 5 days and as needed between for severe coughing episodes, wheezing/shortness of breath. Patient is encouraged to alternate ibuprofen and acetaminophen as needed for pain every 3 hours. Patient was prescribed 100 mg of doxycycline 2 times a day for total of 10 days. Patient was prescribed prednisone 60 mg once a day for total of 5 days. Patient was encouraged to follow-up with personal physician for recheck.. Patient was encouraged return the ED for worsening symptoms cough, worsening pain, worsening shortness of breath, worsening wheezing, coughing up blood, fevers, or any new/concerning symptoms. Additionally I did had a lengthy conversation with the patient concerning tobacco and estrogen use and encouraged her to stop smoking.
[2017-07-30] MEDS ORDERED: LEVE750T PO (23:32)
== END 2017-07-29 21:46 | disposition home or self-care (01) ==
LOC: C.EDB 19:05 → C.EDA 21:46
DX: J18.1 Lobar pneumonia, unspecified organism (principal); R00.0 Tachycardia, unspecified; R07.9 Chest pain, unspecified; R91.1 Solitary pulmonary nodule; F17.200 Nicotine dependence, unspecified, uncomplicated; E78.5 Hyperlipidemia, unspecified; K21.9 Gastro-esophageal reflux disease without esophagitis; F43.10 Post-traumatic stress disorder, unspecified

== ENCOUNTER 2017-07-30 22:57 | Inpatient (IN) | payer OTHER ==
[~2017-07-30] VITALS: Ht 170.2 cm; Wt 100.2 kg
[~2017-07-30 22:57] MED LIST changes: +DOXY100C2 PO; -DTR/5 PO; -LMC100 PO; -ONDA4TAB10 SL; +PRED20TA2 PO
[2017-07-30] MEDS ORDERED: LEVE750T PO (23:32)
[2017-07-30] MEDS ORDERED: SODIUM CHLORIDE 0.9% 1000ML 1,000 ML IV ONE (23:45)
[2017-07-30] MEDS ORDERED: ALBUT/IPRATROP 3MG/0.5MG NEB 3 ML VIAL INH ONE (23:45)
[2017-07-30 23:53] LABS: BASO % 0.1 %; BASO ABS # 0.01 K/uL (0-0.2); COMPLETE YES; HEMATOCRIT 45.8 % (37-47); IG% 0.6 %; LYMPH % 8.5 %; LYMPH ABS # 0.82 K/uL (1.2-3.4); MEAN CELL VOLUME 90.5 fL (80-100); MEAN CORPUSCULAR HEMOGLOBIN 31.2 pg (25-34); MEAN CORPUSCULAR HGB CONC 34.5 g/dl (32-36); MONO % 2.4 %; NEUT % 88.4 %; PLATELET COUNT 304 K/uL (130-400); RED BLOOD COUNT 5.06 M/uL (4.2-5.4); WHITE BLOOD COUNT 9.64 K/uL (4.8-10.8)
[2017-07-31] VITALS (10 sets, daily range): BP systolic 114–145; BP diastolic 73–88; PULSE 88–112; TEMP 36.5–36.8; O2SAT 93–97; Ht 170.2 cm; Wt 100.2 kg
[2017-07-31 00:01] LABS: BUN/CREATININE RATIO 11.4 (10-20); CALCIUM 8.9 mg/dl (8.5-10.1); CREATININE 1.07 mg/dl (0.60-1.20); POTASSIUM 3.7 mmol/L (3.5-5.1)
[2017-07-31 00:04] LABS: ALB/GLOB RATIO 0.8 (0.9-2)
[2017-07-31] MEDS ORDERED: AZTREONAM IV 2,000 MG in DEXTROSE 5% 100ML 100 ML IV ONE (00:30)
[2017-07-31] MEDS ORDERED: LEVAQUIN 750MG / 150ML D5W IV ONE (00:30)
[2017-07-31] MEDS ORDERED: SODIUM CHLORIDE 0.9% 1000ML 1,000 ML IV ONE (01:00)
[2017-07-31] MEDS ORDERED: LEVETIRACETAM 250 MG TAB PO ONE (01:00)
[2017-07-31 01:21] LABS: MAGNESIUM 1.7 mg/dl (1.8-2.4)
[2017-07-31] MEDS ORDERED: CLINDAMYCIN IV 600 MG in DEXTROSE 5% 50ML 50 ML IV STA (01:22)
[2017-07-31 01:28] LABS: PARTIAL THROMBOPLASTIN RATIO 1.1
[2017-07-31 01:40] LABS: THYROID STIMULATING HORMONE 0.53 uIu/ml (0.300-4.500)
[2017-07-31] MEDS ORDERED: LEVALBUTEROL/IPRATROPIUM NEB INH STA (02:08)
[2017-07-31] MEDS ORDERED: POTASSIUM CHLORIDE 10 MEQ TABCR PO STA (02:08)
[2017-07-31] MEDS ORDERED: INSULIN GLARGINE SOLOSTAR 100 UNITS/ML 3 ML PEN SC ONE (02:08)
[2017-07-31] MEDS ORDERED: GLUCAGON FOR INJ 1 MG VIAL SQ PRN (02:15)
[2017-07-31] MEDS ORDERED: LEVALBUTEROL/IPRATROPIUM NEB INH PRN (02:15)
[2017-07-31] MEDS ORDERED: IBUPROFEN 200 MG TAB PO PRN (02:15)
[2017-07-31] MEDS ORDERED: KETOROLAC TROMETHAMINE 30 MG/ML VIAL IV PRN (02:15)
[2017-07-31] MEDS ORDERED: GLUCOSE 40% GEL 15 GM TUBE PO PRN (02:15)
[2017-07-31] MEDS ORDERED: GLUCOSE 10 TABS/TUBE PO PRN (02:15)
[2017-07-31] MEDS ORDERED: LORAZEPAM 2 MG/ML 1 ML VIAL IV PRN (02:15)
[2017-07-31] MEDS ORDERED: DEXTROSE 50% 50 ML SYR IV PRN (02:15)
[2017-07-31] MEDS ORDERED: METOPROLOL SUCC 25MG EXT REL TAB PO ONE (02:24)
[2017-07-31] MEDS ORDERED: LEVALBUTEROL 1.25MG/0.5ML NEB INH STA (02:29)
[2017-07-31] MEDS ORDERED: IPRATROPIUM BROMIDE NEB SOLN 0.02% 2.5 ML VIAL INH STA (02:29)
[2017-07-31] MEDS ORDERED: LEVALBUTEROL 1.25MG/0.5ML NEB INH PRN (02:30)
[2017-07-31] MEDS ORDERED: NSS + 20MEQ KCL 1000ML 1,000 ML IV ONE ×2 (02:30→06:00)
[2017-07-31] MEDS ORDERED: IPRATROPIUM BROMIDE NEB SOLN 0.02% 2.5 ML VIAL INH PRN (02:30)
[2017-07-31] MEDS ORDERED: MAGNESIUM SULFATE 1GM / D5W 1 GM in PREMIXED IN D5W 100 ML IV ONE (02:45)
[2017-07-31] MEDS: IPRATROPIUM BROMIDE NEB SOLN 0.02% 2.5 ML VIAL INH SCH ×4 (02:45→20:36)
[2017-07-31] MEDS: LEVALBUTEROL 1.25MG/0.5ML NEB INH SCH ×4 (02:45→20:37)
[2017-07-31] MEDS ORDERED: GUAIFENESIN 600 MG TABCR PO ONE (02:59)
[2017-07-31 04:09] LABS: INFLUENZA A PCR Neg for Influ A (NEG); INFLUENZA B PCR Neg for Influ B (NEG)
[2017-07-31] MEDS ORDERED: NSS + 20MEQ KCL 1000ML 1,000 ML IV SCH ×3 (04:30→05:00)
[2017-07-31] MEDS: LEVOTHYROXINE 50 MCG TAB PO SCH (04:46)
[2017-07-31] MEDS ORDERED: NSS + 20MEQ KCL 1000ML 1,000 ML IV STA (04:47)
[2017-07-31 05:15] LABS: URINE APPEARANCE CLEAR (CLEAR); URINE BILIRUBIN NEG (NEG); URINE COLOR YELLOW; URINE EPITHELIAL CELL AUTO >30 /lpf (0-5); URINE NITRITE NEG (NEG); URINE PH 5.5 (4.5-7.5); URINE SPECIFIC GRAVITY 1.012 (1.000-1.030); UROBILINOGEN NEG (NEG); ZZUR CULT IF INDIC CLEAN CATCH NO
[2017-07-31 05:17] LABS: MANUAL MICROSCOPIC REQUIRED? NO; REVIEW REQ? NO
[2017-07-31 05:25] LABS: BASO % 0.1 %; BASO ABS # 0.01 K/uL (0-0.2); COMPLETE YES; HEMATOCRIT 39.1 % (37-47); IG% 0.4 %; LYMPH % 24.7 %; LYMPH ABS # 1.77 K/uL (1.2-3.4); MEAN CELL VOLUME 91.1 fL (80-100); MEAN PLATELET VOLUME 9.4 fL (7.4-10.4); MONO % 10.9 %; NEUT % 63.9 %; PLATELET COUNT 240 K/uL (130-400); RED BLOOD COUNT 4.29 M/uL (4.2-5.4); WHITE BLOOD COUNT 7.17 K/uL (4.8-10.8)
[2017-07-31 05:34] LABS: BENZODIAZEPINE, URINE NEG (NEG); COCAINE,URINE NEG (NEG); PHENCYCLIDINE, URINE NEG (NEG)
--- NOTE | 2017-07-31 05:38 | DIAGNOSTIC IMAGING REPORT ---
HEAD WITHOUT CONTRAST (CT) CLINICAL HISTORY: 22 years-old Female presenting with fink. TECHNIQUE: Multidetector CT imaging of the head was performed without the use of intravenous contrast. IV contrast: None. A dose lowering technique was used consistent with the principles of ALARA (as low as reasonably achievable). COMPARISON: 07/09/2016. CT DOSE (mGy.cm): The estimated cumulative dose is 537.48 mGy.cm. FINDINGS: Guardian Ad Litem topogram: Unremarkable. Ventricles and sulci normal in size. Brain parenchyma normal in appearance with preserved beyer-white differentiation. No mass effect or midline shift. No hemorrhage or acute territorial infarct. No extra-axial fluid collection. Aerated secretions in the bilateral maxillary sinuses, frontal sinuses, and ethmoid air cells. Calvarium intact. IMPRESSION: 1. No acute intracranial abnormality. 2. Aerated secretions in the bilateral maxillary sinuses, frontal sinuses, and ethmoid air cells consistent with acute sinusitis. Electronically signed by: Jose Braden M.D. 07/31/2017 5:37 AM Dictated Date/Time: 07/31/2017 5:35 AM
[2017-07-31 05:49] LABS: BUN/CREATININE RATIO 12.1 (10-20); CALCIUM 7.6 mg/dl (8.5-10.1); CREATININE 0.66 mg/dl (0.60-1.20); MAGNESIUM 1.9 mg/dl (1.8-2.4); POTASSIUM 3.7 mmol/L (3.5-5.1)
--- NOTE | 2017-07-31 06:58 | HISTORY & PHYSICAL EXAMINATION ---
DATE OF ADMISSION: 07/31/2017 PRIMARY CARE DOCTOR: Dr. Kolb. CHIEF COMPLAINT: Chest pain, shortness of breath. HISTORY OF PRESENT ILLNESS: History obtained from patient and records. Medical history significant for seizure disorder, asthma, hypothyroidism, ongoing tobacco abuse, history of PE sp Coumadin, TIA as per records. Recent confinement last June 2016 for recurrent seizures. Patient transferred to [facility]. A few days ago, patient had 2 witnessed generalized tonic-clonic seizure by mother lasting 3-5 minutes. No fever, but patient having sinus congestion symptoms. Patient compliant with home medications. Last seizure prior to episode was about 6 months ago. Achy headache symptoms. The patient directed to the Emergency Room by PCP. Patient sent home and advised to contact her neurologist. Px saw [facility] [place] [facility] Neurology outpatient last 07/29/2017. As per note, mixed picture of true primarily generalized seizures with pseudoseizure events. AED levels checked. Outpatient MRI recommended for seizure workup. Keppra dose increased to 750 mg daily. Lamictal dose kept the same. Patient to follow up in 6 months. No recurrent seizures since. Patient returned to the ER 07/29/17 PM because of pleuritic right-sided chest pain with shortness of breath symptoms, sticky cough symptoms unable to expectorate, increasing shortness of breath. Admits to sick contacts. No witnessed aspiration. CTA did not show any PE, patchy opacity left upper lobe concerning for pneumonia, atelectasis. Patient is given doxycycline, Solu-Medrol. Discharged on home doxycycline, prednisone course. Patient returned to ER last night for worsening symptoms. Patient given Aztreonam and Levaquin for possible sepsis. MEDICAL HISTORY: As above. Has not had recent flu shot, pneumococcal vaccine June 2016. Seen by PCP for palpitations last month. Home Toprol-XL restarted. SURGICAL HISTORY: She has had skin surgery, bunion removal, bone reconstruction, cholecystectomy and ovarian cyst. HOME MEDICATIONS: Include levothyroxine, Lamictal, Prilosec, Ventolin, Tylenol, albuterol, OCP, and Keppra. ALLERGIES: ADHESIVE, AMOXICILLIN, HYDROMORPHONE, MORPHINE, OXYCODONE. FAMILY HISTORY: Seizures, breast cancer. PERSONAL AND SOCIAL HISTORY: A few cigarettes a day. No chronic ETOH intake, applying for disability. REVIEW OF SYSTEMS: As per HPI, all 10 systems reviewed. All others review of systems negative. PHYSICAL EXAMINATION: VITAL SIGNS: Blood pressure was noted to be 151/96, pulse rate 133, later 120, RR 25, temperature 36.5, sats 98 on room air. GENERAL: Obese, anxious, no distress SKIN: Normal color, warm. HEENT: [place] palpebral conjuctivae. No ptosis. Dry mucosa. NECK: Short neck. Supple LUNGS: Decreased breath sounds. Expiratory wheezes. Tenderness on the anterior right chest. HEART: Tachycardic. No murmur. ABDOMEN: Soft, nontender. EXTREMITIES: Minimal LE edema, some tenderness in right anterior shoulder. NEUROLOGIC: Coherent. No gross focality. LABORATORY DATA: Hemoglobin was noted to be 15.8, hematocrit 38, white cell count 9.6, platelets 304. Sodium noted to be 136, potassium 3.7, chloride 107, CO2 20, BUN 12, creatinine 1, glucose 165. Troponin 0.23. Lactic acid 4.5. IMAGING: EKG as per my interpretation rate 130, sinus tachycardia, T-wave flattening in some leads. CT head no acute pathology Chest x-ray as per my interpretation atelectasis ASSESSMENT: 1. Sepsis possible aspiration pneumonia recent breakthrough seizure. Failed outpatient Doxycycline treatment. 2. Asthma exacerbation secondary to above. 3. hx mixed seizure disorder. Controlled for now after recent outpatient [facility] Neurology visit and medication adjustment. 4. Right-sided chest pain Likely musculoskeletal with reproducible tenderness Rule out right shoulder injury 5. hx TIA as per patient 6. hx PE sp Coumadin as per patient 7. hx of palpitations on home beta timothy 8. Ongoing tobacco abuse 9. Non-specific headache symptoms post seizure 10. Steroid-induced hyperglycemia Rule out diabetes PLAN: PCU CS, Clindamycin for now IVF, follow lactic acid steroid course, nebs for asthma exacerbation. Patient counseled to stop smoking. NSAIDS when necessary pain R shoulder x-ray RE R ant shoulder/chest pain MRI brain as per outpatient [facility] Neuro recommendations for headache/seizure workup. Check hemoglobin A1c DVT prophylaxis, SCDs for now until brain tumor ruled out on MRI (Lovenox subQ if no brain tumor on imaging given history of clot in the past.) Full code. MTDD
[2017-07-31] MEDS ORDERED: INFLUENZA VIRUS QUAD VACCINE 0.5 ML SYR IM. ONE (07:00)
[2017-07-31] MEDS: INSULIN ASPART 100 UNITS/ML 3 ML PEN SC SCH ×4 (07:00→20:30)
[2017-07-31] MEDS ORDERED: INFLUENZA ADMINISTRATION CHARGE ONE (07:00)
[2017-07-31] MEDS: LEVETIRACETAM 250 MG TAB PO SCH ×2 (07:51→20:14)
[2017-07-31] MEDS: CLINDAMYCIN HCL 150 MG CAP PO SCH ×3 (07:51→17:57)
[2017-07-31] MEDS: NSS + 20MEQ KCL 1000ML 1,000 ML IV SCH ×3 (07:51→14:42)
[2017-07-31] MEDS: PANTOprazole SOD 40 MG TAB PO SCH (07:51)
[2017-07-31] MEDS: LACTOBACILLUS ACIDOPHILUS (FLORANEX) TAB PO SCH ×3 (07:51→17:06)
[2017-07-31] MEDS ORDERED: BCP'S~ORDER AWAITING ACTION SCH (08:00)
--- NOTE | 2017-07-31 08:21 | DIAGNOSTIC IMAGING REPORT ---
CHEST ONE VIEW PORTABLE CLINICAL HISTORY: 22 years-old Female presenting with sob. TECHNIQUE: Portable upright AP view of the chest was obtained. COMPARISON: 05/24/[address] scan from 07/29/2017. FINDINGS: Cardiomediastinal silhouette normal. Mild bronchial wall thickening left greater than right. Bandlike opacity in the left upper lung. Trace left pleural effusion may be present. No pneumothorax. Osseous structures normal. Upper abdomen normal. IMPRESSION: 1. Minimal left upper lung opacities the setting of bronchial wall thickening. Findings suspicious for pneumonia better demonstrated on prior CTA from 07/29/2017. Current radiographic findings are minimal and nonspecific. No increased opacity from prior CTA. Electronically signed by: Jose Braden M.D. 07/31/2017 8:20 AM Dictated Date/Time: 07/31/2017 8:18 AM
--- NOTE | 2017-07-31 08:23 | DIAGNOSTIC IMAGING REPORT ---
R SHOULDER MIN 2 VIEWS ROUTINE CLINICAL HISTORY: 22 years-old Female presenting with R ant shoulder pain. TECHNIQUE: Internal rotation, external rotation, and Grashey views of the right shoulder were obtained. COMPARISON: None. FINDINGS: Glenohumeral and acromioclavicular joints congruent. No degenerative change. No acute osseous fracture or malalignment. No radiographic soft tissue abnormality. Visualized portion of the right lung clear. IMPRESSION: No osseous abnormality of the right shoulder. Electronically signed by: Jose Braden M.D. 07/31/2017 8:21 AM Dictated Date/Time: 07/31/2017 8:20 AM
[2017-07-31] MEDS ORDERED: LEVALBUTEROL/IPRATROPIUM NEB INH SCH (09:00)
[2017-07-31] MEDS ORDERED: CLINDAMYCIN CONSULT ACTIVE PRN ×2 (09:00)
[2017-07-31] MEDS ORDERED: GADAVIST IV PRN (10:55)
--- NOTE | 2017-07-31 11:28 | DIAGNOSTIC IMAGING REPORT ---
BRAIN COMBO FOR SEIZURE CLINICAL HISTORY: 22 years-old Female presenting with fink, recently with seizures, discharged, history of seizures, reported history of stroke 7 years ago, presenting with trouble breathing and high heart rate and pneumonia, history of skin cancer removed from the head. TECHNIQUE: Multisequence, multiplanar MR imaging of the brain was performed before and after the administration of intravenous contrast. IV contrast: 10 mL of Gadavist. COMPARISON: CT head performed earlier the same day. FINDINGS: Ventricles and sulci normal in size. Brain parenchyma normal in appearance with preserved beyer-white differentiation. No temporal lobe abnormality or evidence of prior infarct. No mass effect or midline shift. No restricted diffusion to suggest acute ischemia. No hemorrhage. No extra-axial fluid collection. T2 skull base flow voids preserved. No abnormal parenchymal enhancement. Bone marrow signal intensity within the calvarium within normal limits. Aerated secretions in the bilateral maxillary sinuses as well as the frontal sinuses and ethmoid air cells. These also demonstrate restricted diffusion. IMPRESSION: 1. No acute intracranial pathology. No abnormal enhancement. 2. Findings remain consistent with acute sinusitis. Electronically signed by: Jose Braden M.D. 07/31/2017 11:26 AM Dictated Date/Time: 07/31/2017 11:20 AM
[2017-07-31] MEDS ORDERED: ENOXAPARIN 40 MG/0.4 ML SYR SQ ONE (11:57)
--- NOTE | 2017-07-31 12:10 | Progress Note ---
Internal Med Progress Note Date of Service: Jul 31, 2017. Provider Documentation: SUBJECTIVE: The patient was seen and examined Complains of some non specific pain in right costochondral region No associated symptoms of Palpitation and or SOB Feeling better and wants to go home soon OBJECTIVE: Vital Signs-as noted below Exam: General-NO distress at rest Eyes-normal ENT-normal Neck-supple Lungs-occasional wheezing bilaterally Minimal crackles left apical area Tenderness over right Costochondral junction Heart-Regular,no murmur appreciated Abdomen-Benign,no masses,bowel sound present Extremities-NO edema Neuro-AAOx3 Lab data as noted below. ASSESSMENT & PLAN: Sepsis possible aspiration pneumonia/Sinusitis Recent breakthrough seizure. Failed outpatient Doxycycline treatment. Lactic acid is tending down Has been on Clindamycin Clinically better Asthma exacerbation secondary to above. Started on Steroid and Neba Clinically better Seizure disorder. Controlled for now after recent outpatient [facility] [place] Neurology visit and medication adjustment. MRI of the Brain-negative of any significant findings No acute issue now H/O TIA as per patient H/O PE sp Coumadin as per patient Ongoing tobacco abuse DVT prophylaxis, SCDs for now until brain tumor ruled out on MRI (Lovenox subQ if no brain tumor on imaging given history of clot in the past.) Full code. Vital Signs: Date Time Temp Pulse Resp B/P (MAP) Pulse Ox O2 Delivery O2 Flow Rate FiO2 07/31/17 11:33 36.5 91 20 131/88 (102) 93 Room Air 07/31/17 07:45 Room Air 07/31/17 07:17 36.6 105 20 120/79 (93) 95 Room Air 07/31/17 07:07 109 18 96 Room Air 07/31/17 04:00 Room Air 07/31/17 02:53 112 18 96 Room Air 07/31/17 02:15 36.8 110 20 145/85 93 Room Air 07/31/17 02:15 93 Room Air 07/31/17 02:11 123 26 124/87 100 07/31/17 01:36 123 26 124/87 100 Room Air 07/31/17 01:01 114 21 123/88 98 Room Air 07/31/17 00:31 122 25 135/77 99 Room Air 07/31/17 00:11 120 20 165/77 93 Room Air 07/30/17 23:50 94 Room Air 07/30/17 23:17 128 12/16/17 23:04 93 Room Air 07/30/17 23:01 36.5 133 20 151/96 93 Room Air Lab Results: Results Past 24 Hours Test 07/30/17 23:15 07/30/17 23:50 07/31/17 00:00 07/31/17 00:03 Range/Units White Blood Count 9.64 4.8-10.8 K/uL Red Blood Count 5.06 4.2-5.4 M/uL Hemoglobin 15.8 12.0-16.0 g/dL Hematocrit 45.8 37-47 % Mean Corpuscular Volume 90.5 80-100 fL Mean Corpuscular Hemoglobin 31.2 25-34 pg Mean Corpuscular Hemoglobin Concent 34.5 32-36 g/dl Platelet Count 304 130-400 K/uL Mean Platelet Volume 10.0 7.4-10.4 fL Neutrophils (%) (Auto) 88.4 % Lymphocytes (%) (Auto) 8.5 % Monocytes (%) (Auto) 2.4 % Eosinophils (%) (Auto) 0.0 % Basophils (%) (Auto) 0.1 % Neutrophils # (Auto) 8.52 1.4-6.5 K/uL Lymphocytes # (Auto) 0.82 1.2-3.4 K/uL Monocytes # (Auto) 0.23 0.11-0.59 K/uL Eosinophils # (Auto) 0.00 0-0.5 K/uL Basophils # (Auto) 0.01 0-0.2 K/uL RDW Standard Deviation 45.2 36.4-46.3 fL RDW Coefficient of Variation 13.8 11.5-14.5 % Immature Granulocyte % (Auto) 0.6 % Immature Granulocyte # (Auto) 0.06 0.00-0.02 K/uL Sodium Level 138 136-145 mmol/L Potassium Level 3.7 3.5-5.1 mmol/L Chloride Level 107 98-107 mmol/L Carbon Dioxide Level 20 21-32 mmol/L Anion Gap 11.0 3-11 mmol/L Blood Urea Nitrogen 12 7-18 mg/dl Creatinine 1.07 0.60-1.20 mg/dl Est Creatinine Clear Calc Drug Dose 101.0 ml/min Estimated GFR () 85.3 Estimated GFR (Non- 73.6 BUN/Creatinine Ratio 11.4 10-20 Random Glucose 165 70-99 mg/dl Calcium Level 8.9 8.5-10.1 mg/dl Magnesium Level 1.7 1.8-2.4 mg/dl Total Bilirubin 0.2 0.2-1 mg/dl Aspartate Amino Transf (AST/SGOT) 13 15-37 U/L Alanine Aminotransferase (ALT/SGPT) 26 12-78 U/L Alkaline Phosphatase 79 45-117 U/L Total Protein 8.3 6.4-8.2 gm/dl Albumin 3.7 3.4-5.0 gm/dl Globulin 4.6 2.5-4.0 gm/dl Albumin/Globulin Ratio 0.8 0.9-2 Lipase 84 73-393 U/L Thyroid Stimulating Hormone (TSH) 0.530 0.300-4.500 uIu/ml Bedside Troponin I < 0.030 0-0.045 ng/ml Urine Color YELLOW Urine Appearance CLEAR CLEAR Urine pH 5.5 4.5-7.5 Urine Specific [place] 1.012 1.000-1.030 Urine Protein NEG NEG Urine Glucose (UA) NEG NEG Urine Ketones NEG NEG Urine Occult Blood 3+ NEG Urine Nitrite NEG NEG Urine Bilirubin NEG NEG Urine Urobilinogen NEG NEG Urine Leukocyte Esterase NEG NEG Urine WBC (Auto) 1-5 0-5 /hpf Urine RBC (Auto) >30 0-4 /hpf Urine Hyaline Casts (Auto) 0 0-5 /lpf Urine Epithelial Cells (Auto) >30 0-5 /lpf Urine Bacteria (Auto) NEG NEG Urine Opiates Screen POS NEG Urine Methadone, Qualitative NEG NEG Urine Barbiturates NEG NEG Urine Phencyclidine (PCP) Level NEG NEG Ur Amphetamine/Methamphetamine NEG NEG MDMA (Ecstasy) Screen NEG NEG Urine Benzodiazepines Screen NEG NEG Urine Cocaine Metabolite NEG NEG Urine Marijuana (THC) NEG NEG Bedside Lactic Acid Venous 4.73 0.90-1.70 mmol/L Test 07/31/17 01:14 07/31/17 01:21 07/31/17 02:30 07/31/17 05:15 Range/Units Activated Partial Thromboplast Time 27.4 21.0-31.0 SECONDS Partial Thromboplastin Ratio 1.1 Lactic Acid Level 4.5 3.0 0.4-2.0 mmol/L Influenza Type A (RT-PCR) Neg for Influ A NEG Influenza Type A Antigen Neg for Influ A NEG Influenza Type B Antigen Neg for Influ B NEG Influenza Type B (RT-PCR) Neg for Influ B NEG White Blood Count 7.17 4.8-10.8 K/uL Red Blood Count 4.29 4.2-5.4 M/uL Hemoglobin 13.3 12.0-16.0 g/dL Hematocrit 39.1 37-47 % Mean Corpuscular Volume 91.1 80-100 fL Mean Corpuscular Hemoglobin 31.0 25-34 pg Mean Corpuscular Hemoglobin Concent 34.0 32-36 g/dl Platelet Count 240 130-400 K/uL Mean Platelet Volume 9.4 7.4-10.4 fL Neutrophils (%) (Auto) 63.9 % Lymphocytes (%) (Auto) 24.7 % Monocytes (%) (Auto) 10.9 % Eosinophils (%) (Auto) 0.0 % Basophils (%) (Auto) 0.1 % Neutrophils # (Auto) 4.58 1.4-6.5 K/uL Lymphocytes # (Auto) 1.77 1.2-3.4 K/uL Monocytes # (Auto) 0.78 0.11-0.59 K/uL Eosinophils # (Auto) 0.00 0-0.5 K/uL Basophils # (Auto) 0.01 0-0.2 K/uL RDW Standard Deviation 45.8 36.4-46.3 fL RDW Coefficient of Variation 14.0 11.5-14.5 % Immature Granulocyte % (Auto) 0.4 % Immature Granulocyte # (Auto) 0.03 0.00-0.02 K/uL Sodium Level 139 136-145 mmol/L Potassium Level 3.7 3.5-5.1 mmol/L Chloride Level 110 98-107 mmol/L Carbon Dioxide Level 22 21-32 mmol/L Anion Gap 7.0 3-11 mmol/L Blood Urea Nitrogen 8 7-18 mg/dl Creatinine 0.66 0.60-1.20 mg/dl Est Creatinine Clear Calc Drug Dose 163.7 ml/min Estimated GFR () 145.3 Estimated GFR (Non- 125.4 BUN/Creatinine Ratio 12.1 10-20 Random Glucose 100 70-99 mg/dl Calcium Level 7.6 8.5-10.1 mg/dl Magnesium Level 1.9 1.8-2.4 mg/dl Test 07/31/17 07:30 07/31/17 11:16 07/31/17 11:57 Range/Units Bedside Glucose 109 92 70-90 mg/dl Microbiology Results 07/31/17 Blood Culture, Received Pending 07/30/17 Blood Culture, Received Pending
[2017-07-31] MEDS: ACETAMINOPHEN 325 MG TAB PO PRN (17:05)
[2017-07-31] MEDS: DICLOFENAC SOD 1% GEL 100 GM TUBE EXT SCH (20:07)
[2017-07-31] MEDS: GUAIFENESIN 600 MG TABCR PO SCH (20:14)
--- NOTE | 2017-07-31 22:39 | EMERGENCY ROOM VISIT NOTE ---
History First contact with patient: 23:24 Chief Complaint: CARDIAC ASSESSMENT Stated Complaint: SEPSIS Nursing Triage Summary: Patient notes right sided chest pain that began at 1999, radiates down right arm. Patient states that she was told in ED yesterday that she has pneumonia and two masses in her left lung. Tylenol at 2030 for discomfort, not helping now. History of Present Illness The patient is a 22 year old female who presents to the Emergency Room with complaints of worsening right-sided chest pain that began this evening. The patient has been seen twice this week in the emergency department. Her first visit was after 2 episodes of witnessed seizure events at home, where her evaluation was essentially normal here in the ER. She does have a history of seizures, and this was felt to be a normal seizure for her. She came back to the emergency department one day ago where she was now complaining of chest discomfort. She had an elevated d-dimer and CT angiogram revealed what appears to be a left upper lobe pneumonia. The patient was started on doxycycline. The patient returns today as she is now complaining of right-sided chest pain that radiates down her right arm. The patient has not had high fever, injury, or trauma. She is somewhat short of breath with this. No return of seizure- like activity. She has not taken her seizure medications tonight. The patient rates her overall discomfort a 9/10. Review of Systems More than 10 systems were reviewed and otherwise negative with the exception of history of present illness. Past Medical/Surgical History Medical Problems: (1) Asthma (2) Dyslipidemia (3) GERD (gastroesophageal reflux disease) (4) Kidney stone (5) OAB (overactive bladder) (6) Ovarian cyst (7) PTSD (post-traumatic stress disorder) (8) Seizures (9) Sepsis (10) Vaginal delivery Surgical Problems: (1) H/O colonoscopy (2) H/O esophagogastroduodenoscopy (3) H/O foot surgery (4) S/P laparoscopic cholecystectomy (5) S/P removal of ovarian cyst (6) Status post Mohs surgery Family History Diabetes mellitus FATHER GRANDMOTHER FH: cancer FATHER FH: gallbladder disease FH: heart disease FH: seizures MOTHER Social History Smoking Status: Current Every Day Smoker Alcohol Use: none Drug Use: none Marital Status: in relationship Housing Status: lives with family Occupation Status: unemployed Current/Historical Medications Scheduled Control Pills ( Control Pills), 1 TAB PO QAM Doxycycline Hyclate (Vibramycin), 100 MG PO BID Folic Acid (Folvite), 3 MG PO QAM Lamotrigine (Lamictal), 200 MG PO BID Levetiracetam (Keppra), 750 MG PO BID Levothyroxine Sodium (Levothyroxine Sodium), 50 MCG PO DAILY Omeprazole (Prilosec), 40 MG PO DAILY Prednisone (Prednisone Tab), 3 TAB PO DAILY Scheduled PRN Acetaminophen (Tylenol), 650 MG PO DIRECTED PRN for Headache Albuterol Hfa (Ventolin Hfa), 2 PUFFS INH UD PRN for Asthma Symptoms Albuterol Sulf (Albuterol Sulfate), 1 DOSE PO Q4 PRN for Shortness of Breath Physical Exam Vital Signs Date Time Temp Pulse Resp B/P (MAP) Pulse Ox O2 Delivery O2 Flow Rate FiO2 07/31/17 01:01 114 21 123/88 98 Room Air 07/31/17 00:31 122 25 135/77 99 Room Air 07/31/17 00:11 120 20 165/77 93 Room Air 07/30/17 23:50 94 Room Air 07/30/17 23:17 128 07/30/17 23:04 93 Room Air 07/30/17 23:01 36.5 133 20 151/96 93 Room Air Physical Exam VITALS: Vitals are noted on the nurse's note and reviewed by myself. Vital signs with tachycardia GENERAL: Well-developed, well-nourished, white female, who is in no acute distress and resting comfortably. Patient is cooperative with the examination. GCS 15. HEAD: Normocephalic atraumatic. EARS: External ear normal. External auditory canals clear, tympanic membranes pearly beyer without erythema or effusion bilaterally. EYES: Pupils equal round and reactive to light and accommodation. Conjunctivae without injection, sclerae without icterus. Extraocular movements intact. NOSE: Patent, turbinates without inflammation or discharge. MOUTH: Mucous membranes moist. Tonsils are not enlarged. Pharynx without erythema, blood, or exudate. Uvula midline. Airway patent. NECK: Supple without nuchal rigidity. No lymphadenopathy. No thyromegaly. Cervical spine is nontender. HEART: Tachycardic rate and regular rhythm. LUNGS: Fine crackles appreciated in the left upper side lung spencer. Lungs otherwise clear bilateral. ABDOMEN: Positive normal bowel sounds x 4. Soft, nontender, without masses or organomegaly. No guarding or rebound tenderness. MUSCULOSKELETAL: No muscle atrophy, erythema, or edema noted. Full range of motion without joint tenderness in all extremities. NEURO: Patient was alert and oriented to person place and time. CN II through XII grossly intact. Deep tendon reflexes 2+ throughout. No focal neurological deficits SKIN: The skin was without rashes, erythema, edema, or bruising. Capillary reflex less than 2 seconds. Medical Decision & Procedures Laboratory Results Test 07/30/17 23:15 07/30/17 23:50 07/31/17 00:00 07/31/17 00:03 Total Bilirubin 0.2 mg/dl (0.2-1) Aspartate Amino Transf (AST/SGOT) 13 U/L (15-37) Alanine Aminotransferase (ALT/SGPT) 26 U/L (12-78) Alkaline Phosphatase 79 U/L (45-117) Total Protein 8.3 gm/dl (6.4-8.2) Albumin 3.7 gm/dl (3.4-5.0) Globulin 4.6 gm/dl (2.5-4.0) Albumin/Globulin Ratio 0.8 (0.9-2) Lipase 84 U/L (73-393) Thyroid Stimulating Hormone (TSH) 0.530 uIu/ml (0.300-4.500) Bedside Troponin I < 0.030 ng/ml (0-0.045) Urine Color YELLOW Urine Appearance CLEAR (CLEAR) Urine pH 5.5 (4.5-7.5) Urine Specific [place] 1.012 (1.000-1.030) Urine Protein NEG (NEG) Urine Glucose (UA) NEG (NEG) Urine Ketones NEG (NEG) Urine Occult Blood 3+ (NEG) Urine Nitrite NEG (NEG) Urine Bilirubin NEG (NEG) Urine Urobilinogen NEG (NEG) Urine Leukocyte Esterase NEG (NEG) Urine WBC (Auto) 1-5 /hpf (0-5) Urine RBC (Auto) >30 /hpf (0-4) Urine Hyaline Casts (Auto) 0 /lpf (0-5) Urine Epithelial Cells (Auto) >30 /lpf (0-5) Urine Bacteria (Auto) NEG (NEG) Urine Opiates Screen POS (NEG) Urine Methadone, Qualitative NEG (NEG) Urine Barbiturates NEG (NEG) Urine Phencyclidine (PCP) Level NEG (NEG) Ur Amphetamine/Methamphetamine NEG (NEG) MDMA (Ecstasy) Screen NEG (NEG) Urine Benzodiazepines Screen NEG (NEG) Urine Cocaine Metabolite NEG (NEG) Urine Marijuana (THC) NEG (NEG) Bedside Lactic Acid Venous 4.73 mmol/L (0.90-1.70) Test 07/31/17 01:14 Activated Partial Thromboplast Time 27.4 SECONDS (21.0-31.0) Partial Thromboplastin Ratio 1.1 Medications Administered Medications (Trade) Dose Ordered Sig/Miroslava Route Start Time Stop Time Status Last Admin Dose Admin Sodium Chloride 1,000 ml @ 999 mls/hr Q1H1M ONCE IV 07/30/17 23:45 07/31/17 00:45 DC 07/31/17 00:11 999 MLS/HR Albuterol/ Ipratropium (Duoneb) 3 ml NOW ONCE INH 07/30/17 23:45 07/30/17 23:46 DC 07/31/17 00:11 3 ML Levofloxacin (Levaquin / D5W) 750 mg NOW ONCE IV 07/31/17 00:30 07/31/17 00:31 DC 07/31/17 00:23 750 MG Aztreonam 2000 mg/ Dextrose 110 ml @ 100 mls/hr NOW ONCE IV 07/31/17 00:30 07/31/17 01:07 DC 07/31/17 01:07 100 MLS/HR Sodium Chloride 1,000 ml @ 999 mls/hr Q1H1M ONCE IV 07/31/17 01:00 07/31/17 02:00 DC 07/31/17 01:08 999 MLS/HR Lamotrigine (Lamictal Tab) 200 mg NOW ONCE PO 07/31/17 01:00 07/31/17 01:01 DC 07/31/17 01:03 200 MG Levetiracetam (Keppra Tab) 750 mg NOW ONCE PO 07/31/17 01:00 07/31/17 01:01 DC 07/31/17 01:03 750 MG Clindamycin Phosphate 600 mg/ Dextrose 54 ml @ 100 mls/hr NOW STAT IV 07/31/17 01:22 07/31/17 01:54 DC 07/31/17 01:59 100 MLS/HR ED Course Physical exam and history were performed. Nursing notes, EMR, and Medication List were personally reviewed. Patient appears to have right-sided chest pain after having both a seizure and diagnosis of pneumonia the past 2 days. On examination the patient does have some left-sided crackles consistent with a pneumonia. She is tachycardic on examination. IV access was established and labs were obtained. Cultures were gathered. The patient's blood work is as above and was reviewed. She does have an elevated white blood cell count is also elevated lactic acid greater than 4. She does not have significant anemia, bandemia, or gross electrolyte imbalance. Overall the patient appears to have worsened since yesterday despite starting doxycycline. This certainly could represent an aspiration pneumonia and sepsis after her seizure episode. The patient was given IV antibiotics here in the department. The case was discussed with the on-call [facility] hospitalist who agreed to evaluate the patient. Please see their dictation for further patient course,, and disposition. The chart was completed utilizing [employer] Speech Voice Recognition Software. Grammatical errors, random word insertions, pronoun errors, and incomplete sentences are an occasional consequence of this system due to software limitations, ambient noise, and hardware issues. Any formal questions or concerns about the content, text, or information contained within the body of this dictation should be directly addressed to the provider for clarification. . Medical Decision Differential diagnosis: Etiologies such as sepsis, UTI, pneumonia, metabolic, electrolyte abnormalities , cardiac sources, intracerebral event, toxicologic, neurologic, as well as others were entertained. Impression Primary Impression: Sepsis Additional Impression: Pneumonia Departure Information Dispostion Still a Patient Condition FAIR Referrals Melissa Kolb D.O. (PCP) Forms IMPORTANT VISIT INFORMATION Patient Instructions [facility] Problem Qualifiers
[2017-08-01] VITALS (8 sets, daily range): BP systolic 113–130; BP diastolic 76–88; PULSE 71–108; TEMP 36.4–36.7; O2SAT 92–98
[2017-08-01] MEDS: IPRATROPIUM BROMIDE NEB SOLN 0.02% 2.5 ML VIAL INH SCH ×3 (01:52→15:00)
[2017-08-01] MEDS: LEVALBUTEROL 1.25MG/0.5ML NEB INH SCH ×3 (01:52→15:00)
[2017-08-01] MEDS: NSS + 20MEQ KCL 1000ML 1,000 ML IV SCH ×2 (02:39→16:26)
[2017-08-01] MEDS: CLINDAMYCIN HCL 150 MG CAP PO SCH ×5 (05:54→23:14)
[2017-08-01] MEDS: LEVOTHYROXINE 50 MCG TAB PO SCH (05:54)
[2017-08-01 06:00] LABS: HEMATOCRIT 39.1 % (37-47); MEAN CELL VOLUME 91.4 fL (80-100); MEAN CORPUSCULAR HEMOGLOBIN 31.1 pg (25-34); MEAN PLATELET VOLUME 9.6 fL (7.4-10.4); PLATELET COUNT 262 K/uL (130-400); RED BLOOD COUNT 4.28 M/uL (4.2-5.4); WHITE BLOOD COUNT 7.65 K/uL (4.8-10.8)
[2017-08-01] MEDS: INSULIN ASPART 100 UNITS/ML 3 ML PEN SC SCH ×4 (06:30→21:00)
[2017-08-01 06:54] LABS: ESTIMATED AVERAGE GLUCOSE 91 mg/dl; HA1C FLAG Normal (Normal)
[2017-08-01 07:42] LABS: BASO % 0.5 %; BASO ABS # 0.04 K/uL (0-0.2); COMPLETE YES; EOS % 1.7 %; IG% 0.5 %; LYMPH % 53.9 %; LYMPH ABS # 4.12 K/uL (1.2-3.4); MONO % 10.2 %; NEUT % 33.2 %
[2017-08-01] MEDS: LACTOBACILLUS ACIDOPHILUS (FLORANEX) TAB PO SCH ×3 (08:24→16:31)
[2017-08-01] MEDS: DESOGESTREL PO SCH (08:24)
[2017-08-01] MEDS: ETHINYL ESTRADIOL 0.03 MG PO SCH (08:24)
[2017-08-01] MEDS: DICLOFENAC SOD 1% GEL 100 GM TUBE EXT SCH ×2 (08:24→20:58)
[2017-08-01] MEDS: PANTOprazole SOD 40 MG TAB PO SCH (08:25)
[2017-08-01] MEDS: LEVETIRACETAM 250 MG TAB PO SCH ×2 (08:25→20:59)
[2017-08-01] MEDS: METOPROLOL SUCC 25MG EXT REL TAB PO SCH (08:25)
[2017-08-01] MEDS: GUAIFENESIN 600 MG TABCR PO SCH ×2 (08:25→20:55)
[2017-08-01] MEDS: ENOXAPARIN 40 MG/0.4 ML SYR SQ SCH (08:26)
[2017-08-01] MEDS: INSULIN GLARGINE SOLOSTAR 100 UNITS/ML 3 ML PEN SC SCH (08:27)
[2017-08-01 11:23] LABS: BUN/CREATININE RATIO 14.8 (10-20); CALCIUM 8.5 mg/dl (8.5-10.1); CREATININE 0.68 mg/dl (0.60-1.20); POTASSIUM 3.5 mmol/L (3.5-5.1)
[2017-08-01] MEDS: ACETAMINOPHEN 325 MG TAB PO PRN (16:30)
--- NOTE | 2017-08-01 16:44 | Progress Note ---
Internal Med Progress Note Date of Service: Aug 01, 2017. Provider Documentation: SUBJECTIVE: The patient was seen and examined Complains of some non specific pain in right costochondral region No associated symptoms of Palpitation and or SOB Feeling better and wants to go home soon 08/01 Not feeling any better Generally weak Lactate remains high OBJECTIVE: Vital Signs-as noted below Exam: General-NO distress at rest Eyes-normal ENT-normal Neck-supple Lungs-occasional wheezing bilaterally Minimal crackles left apical area Tenderness over right Costochondral junction Heart-Regular,no murmur appreciated Abdomen-Benign,no masses,bowel sound present Extremities-NO edema Neuro-AAOx3 Lab data as noted below. ASSESSMENT & PLAN: Sepsis possible aspiration pneumonia/Sinusitis Recent breakthrough seizure. Failed outpatient Doxycycline treatment. Lactic acid is tending down Has been on Clindamycin Not any better today No fever,chills Continue current medications Asthma exacerbation secondary to above. Started on Steroid and Neba Clinically better Seizure disorder. Controlled for now after recent outpatient [facility] Neurology visit and medication adjustment. MRI of the Brain-negative of any significant findings No acute issue now No more episodes Will need regular follow up with Neurology H/O TIA as per patient H/O PE sp Coumadin as per patient Ongoing tobacco abuse DVT prophylaxis, SCDs for now until brain tumor ruled out on MRI (Lovenox subQ if no brain tumor on imaging given history of clot in the past.) Full code. Disposition Increase ambulation CXR in AM ,Chek Lactic acid Likely home in AM Vital Signs: Date Time Temp Pulse Resp B/P (MAP) Pulse Ox O2 Delivery O2 Flow Rate FiO2 08/01/17 15:08 36.6 108 18 120/78 (92) 92 Room Air 08/01/17 12:00 Room Air 08/01/17 11:17 36.4 85 18 125/80 (95) 94 Room Air 08/01/17 07:45 Room Air 08/01/17 07:24 36.6 87 18 113/76 (88) 98 Room Air 08/01/17 07:20 87 18 98 Room Air 08/01/17 05:06 36.6 71 20 129/84 (99) 96 Room Air 08/01/17 04:49 Room Air 08/01/17 00:00 Room Air 07/31/17 23:24 36.6 91 20 127/84 (98) 97 Room Air 07/31/17 20:37 93 18 95 Room Air 07/31/17 20:00 Room Air 07/31/17 19:42 36.6 88 20 119/80 (93) 96 Lab Results: Results Past 24 Hours Test 07/31/17 16:46 07/31/17 20:24 08/01/17 05:17 08/01/17 07:15 Range/Units Lactic Acid Level 2.5 0.4-2.0 mmol/L Bedside Glucose 89 84 70-90 mg/dl White Blood Count 7.65 4.8-10.8 K/uL Red Blood Count 4.28 4.2-5.4 M/uL Hemoglobin 13.3 12.0-16.0 g/dL Hematocrit 39.1 37-47 % Mean Corpuscular Volume 91.4 80-100 fL Mean Corpuscular Hemoglobin 31.1 25-34 pg Mean Corpuscular Hemoglobin Concent 34.0 32-36 g/dl Platelet Count 262 130-400 K/uL Mean Platelet Volume 9.6 7.4-10.4 fL Neutrophils (%) (Auto) 33.2 % Lymphocytes (%) (Auto) 53.9 % Monocytes (%) (Auto) 10.2 % Eosinophils (%) (Auto) 1.7 % Basophils (%) (Auto) 0.5 % Neutrophils # (Auto) 2.54 1.4-6.5 K/uL Lymphocytes # (Auto) 4.12 1.2-3.4 K/uL Monocytes # (Auto) 0.78 0.11-0.59 K/uL Eosinophils # (Auto) 0.13 0-0.5 K/uL Basophils # (Auto) 0.04 0-0.2 K/uL RDW Standard Deviation 45.6 36.4-46.3 fL RDW Coefficient of Variation 13.9 11.5-14.5 % Immature Granulocyte % (Auto) 0.5 % Immature Granulocyte # (Auto) 0.04 0.00-0.02 K/uL Test 08/01/17 10:46 08/01/17 11:20 Range/Units Sodium Level 138 136-145 mmol/L Potassium Level 3.5 3.5-5.1 mmol/L Chloride Level 106 98-107 mmol/L Carbon Dioxide Level 22 21-32 mmol/L Anion Gap 10.0 3-11 mmol/L Blood Urea Nitrogen 10 7-18 mg/dl Creatinine 0.68 0.60-1.20 mg/dl Est Creatinine Clear Calc Drug Dose 158.8 ml/min Estimated GFR () 143.9 Estimated GFR (Non- 124.2 BUN/Creatinine Ratio 14.8 10-20 Random Glucose 106 70-99 mg/dl Lactic Acid Level 2.1 0.4-2.0 mmol/L Calcium Level 8.5 8.5-10.1 mg/dl Bedside Glucose 113 70-90 mg/dl
[2017-08-01] MEDS: IPRATROPIUM BROMIDE HFA INHALER INH SCH ×2 (17:58→23:14)
[2017-08-01] MEDS: LEValbuterol HFA 15GM INHALER INH SCH ×2 (17:59→23:13)
[2017-08-01] MEDS ORDERED: NURSING VERBAL MED ORDER ONE (18:00)
[2017-08-01] MEDS ORDERED: IPRATROPIUM BROMIDE NEB SOLN 0.02% 2.5 ML VIAL INH PRN (19:00)
[2017-08-01] MEDS ORDERED: LEVALBUTEROL 1.25MG/0.5ML NEB INH PRN (19:00)
[2017-08-02 04:00] VITALS: BP 113/76; PULSE 99; TEMP 37; O2SAT 94
[2017-08-02] MEDS: LEValbuterol HFA 15GM INHALER INH SCH ×2 (05:44→12:24)
[2017-08-02] MEDS: IPRATROPIUM BROMIDE HFA INHALER INH SCH ×2 (05:44→12:24)
[2017-08-02] MEDS: CLINDAMYCIN HCL 150 MG CAP PO SCH ×2 (05:44→12:24)
[2017-08-02] MEDS: LEVOTHYROXINE 50 MCG TAB PO SCH (05:45)
[2017-08-02 06:05] LABS: HEMATOCRIT 42.1 % (37-47); MEAN CELL VOLUME 90.3 fL (80-100); MEAN CORPUSCULAR HEMOGLOBIN 30.7 pg (25-34); MEAN PLATELET VOLUME 9.2 fL (7.4-10.4); PLATELET COUNT 274 K/uL (130-400); RED BLOOD COUNT 4.66 M/uL (4.2-5.4); WHITE BLOOD COUNT 8.98 K/uL (4.8-10.8)
[2017-08-02] MEDS: NSS + 20MEQ KCL 1000ML 1,000 ML IV SCH (06:18)
[2017-08-02 06:30] LABS: BUN/CREATININE RATIO 20.3 (10-20); CALCIUM 8.6 mg/dl (8.5-10.1); CREATININE 0.72 mg/dl (0.60-1.20); POTASSIUM 3.9 mmol/L (3.5-5.1)
[2017-08-02 07:28] VITALS: BP 117/76; PULSE 82; TEMP 36.6; O2SAT 96
[2017-08-02 07:45] VITALS: O2SAT 92
--- NOTE | 2017-08-02 07:55 | DIAGNOSTIC IMAGING REPORT ---
CHEST 2 VIEWS ROUTINE CLINICAL HISTORY: pneumonia COMPARISON STUDY: 07/31/2017 FINDINGS: The cardiac and mediastinal contours remain stable. There is blunting of the right lateral costophrenic angle. There are linear opacities the right lung base, likely representing subsegmental atelectasis. There is been interval improvement in the previously described left upper lobe airspace opacities. IMPRESSION: 1. Resolving left upper lobe airspace opacities 2. Linear opacities at the right lung base, likely representing subsegmental atelectatic change Electronically signed by: Alli Lopez M.D. 08/02/2017 7:54 AM Dictated Date/Time: 08/02/2017 7:52 AM
[2017-08-02] MEDS: LEVETIRACETAM 250 MG TAB PO SCH (08:52)
[2017-08-02] MEDS: LACTOBACILLUS ACIDOPHILUS (FLORANEX) TAB PO SCH ×2 (08:53→12:24)
[2017-08-02] MEDS: PANTOprazole SOD 40 MG TAB PO SCH (08:53)
[2017-08-02] MEDS: METOPROLOL SUCC 25MG EXT REL TAB PO SCH (08:53)
[2017-08-02] MEDS: GUAIFENESIN 600 MG TABCR PO SCH (08:54)
[2017-08-02] MEDS: INSULIN ASPART 100 UNITS/ML 3 ML PEN SC SCH ×2 (08:54→11:00)
[2017-08-02] MEDS: INSULIN GLARGINE SOLOSTAR 100 UNITS/ML 3 ML PEN SC SCH (08:58)
[2017-08-02] MEDS: ENOXAPARIN 40 MG/0.4 ML SYR SQ SCH (08:59)
[2017-08-02] MEDS: DICLOFENAC SOD 1% GEL 100 GM TUBE EXT SCH (09:00)
[2017-08-02] MEDS: DESOGESTREL PO SCH (09:04)
[2017-08-02] MEDS: ETHINYL ESTRADIOL 0.03 MG PO SCH (09:04)
[2017-08-02 11:11] VITALS: BP 137/89; PULSE 85; TEMP 36.4; O2SAT 95
[2017-08-02 12:11] VITALS: O2SAT 92
--- NOTE | 2017-08-02 13:44 | Progress Note ---
Internal Med Progress Note Date of Service: Aug 02, 2017. Provider Documentation: SUBJECTIVE: Seen and examined at bedside States feeling much better today Sinus congestion resolved Cough much improved Denies SOB, chest pain, dizziness Eager to get discharged No other issues OBJECTIVE: Vital Signs-as noted below Physical Exam: General Appearance:Moderately built and nourished, no apparent distress Head: normocephalic, Atraumatic Eyes: normal inspection, EOMI, PERRL Neck: supple, Trachea midline Respiratory/Chest: Normal breath sounds, CTA Cardiovascular: S1, S2, No murmur Abdomen/GI:Soft, Non tender, Bowel sounds present Extremities/Musculoskelatal:normal inspection, no edema Neurologic/Psych:AAOX3, grossly no focal neurological deficits Skin: normal color, warm Lab data as noted below. ASSESSMENT & PLAN: Sepsis possible aspiration pneumonia/Sinusitis Recent breakthrough seizure. Failed outpatient Doxycycline treatment. Lactic acid normalized Continue Clindamycin No fever,chills Asthma exacerbation secondary to above. Continue Steroid and Nebs PRN Clinically better Seizure disorder. Controlled for now after recent outpatient [facility] [place] Neurology visit and medication adjustment. MRI of the Brain-negative of any significant findings No acute issue now Needs regular follow up with Neurology as outpatient H/O TIA as per patient H/O PE sp Coumadin as per patient Ongoing tobacco abuse DVT px: Lovenox SQ Code Status: Full code. Disposition Plan to discharge home today Follow up with on 08/03/17 at 1:45pm Complete the antibiotic and prednisone course as prescribed Seek immediate medical attention if your symptoms reoccur or worsen Vital Signs: Date Time Temp Pulse Resp B/P (MAP) Pulse Ox O2 Delivery O2 Flow Rate FiO2 08/02/17 12:11 92 Room Air 08/02/17 11:11 36.4 85 18 137/89 (105) 95 08/02/17 07:45 92 Room Air 08/02/17 07:28 36.6 82 18 117/76 (90) 96 08/02/17 04:00 37.0 99 20 113/76 (88) 94 Room Air 08/02/17 04:00 Room Air 08/02/17 00:00 Room Air 08/01/17 23:50 36.7 80 20 124/86 (99) 94 Room Air 08/01/17 20:00 Room Air 08/01/17 19:18 36.5 87 18 130/88 (102) 94 Room Air 08/01/17 16:00 92 Room Air 08/01/17 15:08 36.6 108 18 120/78 (92) 92 Room Air Lab Results: Results Past 24 Hours Test 08/01/17 16:30 08/01/17 20:41 08/02/17 05:55 08/02/17 07:26 Range/Units Bedside Glucose 118 101 72 70-90 mg/dl White Blood Count 8.98 4.8-10.8 K/uL Red Blood Count 4.66 4.2-5.4 M/uL Hemoglobin 14.3 12.0-16.0 g/dL Hematocrit 42.1 37-47 % Mean Corpuscular Volume 90.3 80-100 fL Mean Corpuscular Hemoglobin 30.7 25-34 pg Mean Corpuscular Hemoglobin Concent 34.0 32-36 g/dl RDW Standard Deviation 44.4 36.4-46.3 fL RDW Coefficient of Variation 13.5 11.5-14.5 % Platelet Count 274 130-400 K/uL Mean Platelet Volume 9.2 7.4-10.4 fL Sodium Level 137 136-145 mmol/L Potassium Level 3.9 3.5-5.1 mmol/L Chloride Level 104 98-107 mmol/L Carbon Dioxide Level 25 21-32 mmol/L Anion Gap 8.0 3-11 mmol/L Blood Urea Nitrogen 15 7-18 mg/dl Creatinine 0.72 0.60-1.20 mg/dl Est Creatinine Clear Calc Drug Dose 150.0 ml/min Estimated GFR () 137.8 Estimated GFR (Non- 118.9 BUN/Creatinine Ratio 20.3 10-20 Random Glucose 76 70-99 mg/dl Lactic Acid Level 1.4 0.4-2.0 mmol/L Calcium Level 8.6 8.5-10.1 mg/dl Test 08/02/17 11:12 Range/Units Bedside Glucose 93 70-90 mg/dl
[2017-08-02] MEDS ORDERED: PRD20 PO (13:48)
[2017-08-02] MEDS ORDERED: LCTX PO (13:48)
[2017-08-02] MEDS ORDERED: CLC150 PO (13:48)
--- NOTE | 2017-08-02 13:50 | Discharge Summary ---
Discharge Summary Date of Service Aug 02, 2017. Discharge Summary Admission Date: Jul 31, 2017 at 01:29 Discharge Date: Aug 02, 2017 Discharge Disposition: Home Principal Diagnosis: Sepsis secondary to Pneumonia, Sinusitis; Asthma Exacerbation Procedures: Brain MRI: 1. No acute intracranial pathology. No abnormal enhancement. 2. Findings remain consistent with acute sinusitis. CXR: 1. Minimal left upper lung opacities the setting of bronchial wall thickening. Findings suspicious for pneumonia better demonstrated on prior CTA from 07/29/2017. Current radiographic findings are minimal and nonspecific. No increased opacity from prior CTA. Consultations: None Pending Studies/Follow-Up: Follow up with on 08/03/17 at 1:45pm Complete the antibiotic and prednisone course as prescribed Seek immediate medical attention if your symptoms reoccur or worsen Medication Reconciliation New Medications: Clindamycin HCl (Clindamycin HCl) 150 Mg Cap 300 MG PO Q6 for 4 Days, #32 CAP Lactobacillus Acidophilus (Floranex) 1 Tab Tab 4 TAB PO TIDM for 4 Days, #12 TAB Prednisone (Prednisone) 20 Mg Tab 40 MG PO DAILY for 3 Days, #6 TAB Continued Medications: Acetaminophen (Tylenol) 325 Mg Tab 650 MG PO DIRECTED PRN for Headache, TAB Albuterol Hfa (Ventolin Hfa) 200 Puffs/11779 Mcg Aers 2 PUFFS INH UD PRN for Asthma Symptoms Albuterol Sulf (Albuterol Sulfate) 2.5 Mg/0.5 Ml Nebu 1 DOSE PO Q4 PRN for Shortness of Breath Control Pills ( Control Pills) Tab 1 TAB PO QAM, TAB Folic Acid (Folvite) 1 Mg Tab 3 MG PO QAM, TAB Lamotrigine (Lamictal) 200 Mg Tab 200 MG PO BID, TAB Levetiracetam (Keppra) 750 Mg Tab 750 MG PO BID, TAB Levothyroxine Sodium (Levothyroxine Sodium) 50 Mcg Tab 50 MCG PO DAILY, TAB 3 Refills Omeprazole (Prilosec) 40 Mg Cap 40 MG PO DAILY, CAP Discontinued Medications: Doxycycline Hyclate (Vibramycin) 100 Mg Cap 100 MG PO BID for 10 Days, #19 CAP Prednisone (Prednisone Tab) 20 Mg Tab 3 TAB PO DAILY for 5 Days, #15 TAB Admission Information HPI (per Admitting provider): CHIEF COMPLAINT: Chest pain, shortness of breath. HISTORY OF PRESENT ILLNESS: History obtained from patient and records. Medical history significant for seizure disorder, asthma, hypothyroidism, ongoing tobacco abuse, history of PE sp Coumadin, TIA as per records. Recent confinement last June 2016 for recurrent seizures. Patient transferred to [facility]. A few days ago, patient had 2 witnessed generalized tonic-clonic seizure by mother lasting 3-5 minutes. No fever, but patient having sinus congestion symptoms. Patient compliant with home medications. Last seizure prior to episode was about 6 months ago. Achy headache symptoms. The patient directed to the Emergency Room by PCP. Patient sent home and advised to contact her neurologist. [place] [facility] [place]. As per note, mixed picture of true primarily generalized seizures with pseudoseizure events. AED levels checked. Outpatient MRI recommended for seizure workup. Keppra dose increased to 750 mg daily. Lamictal dose kept the same. Patient to follow up in 6 months. No recurrent seizures since. Patient returned to the ER 07/29/17 PM because of pleuritic right-sided chest pain with shortness of breath symptoms, sticky cough symptoms unable to expectorate, increasing shortness of breath. Admits to sick contacts. No witnessed aspiration. CTA did not show any PE, patchy opacity left upper lobe concerning for pneumonia, atelectasis. Patient is given doxycycline, Solu-Medrol. Discharged on home doxycycline, prednisone course. Patient returned to ER last night for worsening symptoms. Patient given Aztreonam and Levaquin for possible sepsis. Physical Exam (per Admitting): PHYSICAL EXAMINATION: VITAL SIGNS: Blood pressure was noted to be 151/96, pulse rate 133, later 120, RR 25, temperature 36.5, sats 98 on room air. GENERAL: Obese, anxious, no distress SKIN: Normal color, warm. HEENT: [place] palpebral conjuctivae. No ptosis. Dry mucosa. NECK: Short neck. Supple LUNGS: Decreased breath sounds. Expiratory wheezes. Tenderness on the anterior right chest. HEART: Tachycardic. No murmur. ABDOMEN: Soft, nontender. EXTREMITIES: Minimal LE edema, some tenderness in right anterior shoulder. NEUROLOGIC: Coherent. No gross focality. Hospital Course Sepsis possible aspiration pneumonia/Sinusitis Recent breakthrough seizure. Failed outpatient Doxycycline treatment. Lactic acid normalized Continue Clindamycin No fever,chills Asthma exacerbation secondary to above. Continue Steroid and Nebs PRN Clinically better Seizure disorder. Controlled for now after recent [place] [facility] [place] and medication adjustment. MRI of the Brain-negative of any significant findings No acute issue now Needs regular follow up with Neurology as outpatient H/O TIA as per patient H/O PE sp Coumadin as per patient Ongoing tobacco abuse DVT px: Lovenox SQ Code Status: Full code. Disposition Plan to discharge home today Follow up with on 08/03/17 at 1:45pm Complete the antibiotic and prednisone course as prescribed Seek immediate medical attention if your symptoms reoccur or worsen Total time spent on discharge = 33 minutes This includes examination of the patient, discharge planning, medication reconciliation, and communication with other providers. Discharge Instructions Discharge Instructions Date of Service Aug 02, 2017. Admission Reason for Admission: Sepsis Discharge Discharge Diagnosis / Problem: Sepsis secondary to Pneumonia, Sinusitis; Asthma Exacerbation Discharge Goals Goal(s): Decrease discomfort, Improve function Activity Recommendations Activity Limitations: resume your previous activity Exercise/Sports Limitations: as tolerated . Instructions / Follow-Up Instructions / Follow-Up Follow up with on 08/03/17 at 1:45pm Complete the antibiotic and prednisone course as prescribed Seek immediate medical attention if your symptoms reoccur or worsen Current Hospital Diet Patient's current hospital diet: AHA Diet (Heart Healthy) Discharge Diet Recommended Diet: AHA Diet (Heart Healthy) Pending Studies Studies pending at discharge: no Laboratory Results Hemoglobin A1c Test 07/31/17 01:14 Range/Units Estimated Average Glucose 91 mg/dl Hemoglobin A1c 4.8 4.5-5.6 % Medical Emergencies . Who to Call and When: Medical Emergencies: If at any time you feel your situation is an emergency, please call 911 immediately. . Non-Emergent Contact Non-Emergency issues call your: Primary Care Provider Call Non-Emergent contact if: you have a fever, your pain is not controlled, your pain is worsening, your pain is unusual for you, your pain is concerning you, you have any medication questions Seek immediate medical attention if your symptoms reoccur or worsen . . "Provider Documentation" section prepared by Celio Sotelo. . VTE Core Measure Inpt VTE Proph given/why not?: Enoxaparin (Lovenox)SQ <Electronically signed by Celio Sotelo MD> Signed: 08/02/17 1349 Signed: The status of this report is Signed * If report status is Draft, the document has not been finalized by the responsible provider.
[2017-08-02 14:08] VITALS: BP 137/89; PULSE 85; TEMP 36.4; O2SAT 92
[2017-08-03 15:42] LABS: COD UR NEGATIVE NG/ML (CUTOFF=50); HYDROCOD UR NEGATIVE NG/ML (CUTOFF=50); HYDROMOR UR NEGATIVE NG/ML (CUTOFF=50); MORPHINE UR NEGATIVE NG/ML (CUTOFF=50); NORHYDROCODONE CONF UR NEGATIVE NG/ML (CUTOFF=50); OXYMORPH UR NEGATIVE NG/ML (CUTOFF=50)
== END 2017-08-02 14:56 | disposition home or self-care (01) | DRG 871 ==
LOC: C.EDB 22:58 → C.MED 07-31 01:29 → ENRESERV 07-31 01:43
PROVIDERS: ADMIT Internal Medicine; ATTEND Internal Medicine
DX: A41.9 Sepsis, unspecified organism (principal); J69.0 Pneumonitis due to inhalation of food and vomit; J45.901 Unspecified asthma with (acute) exacerbation; J01.90 Acute sinusitis, unspecified; G40.909 Epilepsy, unspecified, not intractable, without status epilepticus; R07.89 Other chest pain; R51 Headache; R73.9 Hyperglycemia, unspecified; T38.0X5A Adverse effect of glucocorticoids and synthetic analogues, initial encounter; E03.9 Hypothyroidism, unspecified; F17.210 Nicotine dependence, cigarettes, uncomplicated; Z86.711 Personal history of pulmonary embolism; Z86.73 Personal history of transient ischemic attack (TIA), and cerebral infarction without residual deficits; Z79.3 Long term (current) use of hormonal contraceptives; Z79.899 Other long term (current) drug therapy; Z88.0 Allergy status to penicillin; Z82.0 Family history of epilepsy and other diseases of the nervous system; Z83.3 Family history of diabetes mellitus; Z80.3 Family history of malignant neoplasm of breast

== ENCOUNTER 2017-08-19 13:32 | Emergency (ER) | payer OTHER ==
[~2017-08-19] VITALS: Ht 170.2 cm; Wt 101.9 kg
[~2017-08-19 13:32] MED LIST changes: +CLC150 PO; -DOXY100C2 PO; -HYDR-5688 PO; +LCTX PO; -LEVE500T13 PO; +LEVE750T PO; +PRD20 PO; -PRED20TA2 PO
[2017-08-19 13:39] VITALS: TEMP 36.8; Ht 170.2 cm; Wt 101.9 kg
[2017-08-19 14:56] VITALS: O2SAT 97
--- NOTE | 2017-08-19 15:13 | EMERGENCY ROOM VISIT NOTE ---
History Report prepared by Santosh: Edi Woods Under the Supervision of: Dr. Jeff Gallagher M.D. First contact with patient: 14:51 Chief Complaint: CHEST PAIN Stated Complaint: CHEST PAIN, RADIATING INTO LEFT ARM Nursing Triage Summary: pt reports chest pain started at 2130 last night took tylenol went to bed this am awoke feels tingling in left arm . History of Present Illness The patient is a 22 year old white female with a past medical history of pneumonia and a blood clot who presents to the ED with a cc of sharp left sided chest pain beginning last night. Positive radiation down her left arm with tingling in her left hand. Negative fevers, chills, shortness of breath, cough, nausea, vomiting, breast tenderness, breast swelling, breast discharge, leg swelling, or leg pain. Her pain is exacerbated with a deep inhalation. Her past blood clot occurred a couple of years ago and she received blood thinners at that time. She is not currently on them. When her pain began yesterday, she took Tylenol and immediately fell asleep. She notes that it mildly helped her symptoms. She denies any history of heart attacks. She denies any recent long travel. She did not receive a flu shot. Source of History: patient Onset: last night Position: chest (left) Symptom Intensity: moderate Quality: sharp Timing: constant Modifying Factors (Relieving): tylenol Associated Symptoms: + numbness (left hand tingling), No fevers, No chills, No cough, No SOB, No nausea, No vomiting Note: Her pain radiates down her left arm. Review of Systems See HPI for pertinent positives and negatives. A total of ten systems were reviewed and were otherwise negative. Past Medical & Surgical Medical Problems: (1) Asthma (2) Dyslipidemia (3) GERD (gastroesophageal reflux disease) (4) Kidney stone (5) OAB (overactive bladder) (6) Ovarian cyst (7) PTSD (post-traumatic stress disorder) (8) Seizures (9) Sepsis (10) Vaginal delivery Surgical Problems: (1) H/O colonoscopy (2) H/O esophagogastroduodenoscopy (3) H/O foot surgery (4) S/P laparoscopic cholecystectomy (5) S/P removal of ovarian cyst (6) Status post Mohs surgery Family History Diabetes mellitus FATHER GRANDMOTHER FH: cancer FATHER FH: gallbladder disease FH: heart disease FH: seizures MOTHER Social History Smoking Status: Current Every Day Smoker Alcohol Use: none Drug Use: none Marital Status: in relationship Housing Status: lives with family Occupation Status: unemployed Current/Historical Medications Scheduled Control Pills ( Control Pills), 1 TAB PO QAM Folic Acid (Folvite), 3 MG PO QAM Lamotrigine (Lamictal), 200 MG PO BID Levetiracetam (Keppra), 750 MG PO BID Levothyroxine Sodium (Levothyroxine Sodium), 50 MCG PO DAILY Omeprazole (Prilosec), 40 MG PO DAILY Scheduled PRN Acetaminophen (Tylenol), 650 MG PO DIRECTED PRN for Headache Albuterol Hfa (Ventolin Hfa), 2 PUFFS INH UD PRN for Asthma Symptoms Albuterol Sulf (Albuterol Sulfate), 1 DOSE PO Q4 PRN for Shortness of Breath Allergies Coded Allergies: Hydromorphone (Verified Allergy, Severe, Respirations stopped., 07/29/17) Amoxicillin (Verified Allergy, Intermediate, RASH, 07/29/17) Morphine (Verified Allergy, Intermediate, HIVES, 07/29/17) Oxycodone (Verified Allergy, Intermediate, Hives, 07/29/17) Adhesives (Verified Adverse Reaction, Mild, RASH, 07/29/17) Physical Exam Vital Signs Date Time Temp Pulse Resp B/P (MAP) Pulse Ox O2 Delivery O2 Flow Rate FiO2 08/19/17 17:03 95 16 114/58 96 08/19/17 16:12 94 16 129/75 96 Room Air 08/19/17 15:19 94 08/19/17 15:00 84 16 132/89 97 Room Air 08/19/17 14:56 Room Air 08/19/17 14:56 97 Room Air 08/19/17 13:39 36.8 108 18 135/87 98 Room Air Physical Exam GENERAL: Awake, alert, well-appearing, NAD HENT: Normocephalic, atraumatic. EYES: Normal conjunctiva. Sclera non-icteric. NECK: Supple. No nuchal rigidity. FROM. RESPIRATORY: CTAB, no rhonchi, wheezing, crackles CARDIAC: RRR, no MRG ABDOMEN: Soft, NTND, BS+ MSK: Mild reproducible left chest wall TTP, no LE edema, no calf pain, negative Homans sign NEURO: GCS 15, CN 2-12 intact, moves all 4s on command SKIN: No rash or jaundice noted. Medical Decision & Procedures ER Provider Diagnostic Interpretation: Radiology results as stated below per my review and radiologist interpretation: CHEST ONE VIEW PORTABLE CLINICAL HISTORY: Difficult chest pain COMPARISON STUDY: 08/02/2017 FINDINGS: The cardiac and mediastinal contours are normal. There is no evidence of focal pulmonary consolidation. There is no evidence of failure. No pleural effusions are visualized.[ IMPRESSION: No active disease in the chest. Electronically signed by: Alli Lopez M.D. 08/19/2017 3:36 PM Dictated Date/Time: 08/19/2017 3:36 PM Laboratory Results 08/19/17 15:07 Red Blood Count 4.54, Mean Corpuscular Volume 91.0, Mean Corpuscular Hemoglobin 31.3, Mean Corpuscular Hemoglobin Concent 34.4, Mean Platelet Volume 9.5, Neutrophils (%) (Auto) 55.1, Lymphocytes (%) (Auto) 31.6, Monocytes (%) (Auto) 8.1, Eosinophils (%) (Auto) 4.8, Basophils (%) (Auto) 0.2, Neutrophils # (Auto) 3.59, Lymphocytes # (Auto) 2.06, Monocytes # (Auto) 0.53, Eosinophils # (Auto) 0.31, Basophils # (Auto) 0.01 08/19/17 15:07 Test 08/19/17 15:07 White Blood Count 6.51 K/uL (4.8-10.8) Red Blood Count 4.54 M/uL (4.2-5.4) Hemoglobin 14.2 g/dL (12.0-16.0) Hematocrit 41.3 % (37-47) Mean Corpuscular Volume 91.0 fL (80-100) Mean Corpuscular Hemoglobin 31.3 pg (25-34) Mean Corpuscular Hemoglobin Concent 34.4 g/dl (32-36) Platelet Count 248 K/uL (130-400) Mean Platelet Volume 9.5 fL (7.4-10.4) Neutrophils (%) (Auto) 55.1 % Lymphocytes (%) (Auto) 31.6 % Monocytes (%) (Auto) 8.1 % Eosinophils (%) (Auto) 4.8 % Basophils (%) (Auto) 0.2 % Neutrophils # (Auto) 3.59 K/uL (1.4-6.5) Lymphocytes # (Auto) 2.06 K/uL (1.2-3.4) Monocytes # (Auto) 0.53 K/uL (0.11-0.59) Eosinophils # (Auto) 0.31 K/uL (0-0.5) Basophils # (Auto) 0.01 K/uL (0-0.2) RDW Standard Deviation 45.2 fL (36.4-46.3) RDW Coefficient of Variation 14.0 % (11.5-14.5) Immature Granulocyte % (Auto) 0.2 % Immature Granulocyte # (Auto) 0.01 K/uL (0.00-0.02) Prothrombin Time 10.1 SECONDS (9.0-12.0) Prothromb Time International Ratio 1.0 (0.9-1.1) Activated Partial Thromboplast Time 27.4 SECONDS (21.0-31.0) Partial Thromboplastin Ratio 1.1 D-Dimer < 190 ug/L FEU (0-500) Anion Gap 6.0 mmol/L (3-11) Est Creatinine Clear Calc Drug Dose 138.8 ml/min Estimated GFR () 125.1 Estimated GFR (Non- 107.9 BUN/Creatinine Ratio 15.9 (10-20) Calcium Level 9.1 mg/dl (8.5-10.1) Total Bilirubin 0.4 mg/dl (0.2-1) Direct Bilirubin < 0.1 mg/dl (0-0.2) Aspartate Amino Transf (AST/SGOT) 11 U/L (15-37) Alanine Aminotransferase (ALT/SGPT) 21 U/L (12-78) Alkaline Phosphatase 62 U/L (45-117) Troponin I < 0.015 ng/ml (0-0.045) Pro-B-Type Natriuretic Peptide 22 pg/ml (0-450) Total Protein 7.5 gm/dl (6.4-8.2) Albumin 3.4 gm/dl (3.4-5.0) Lipase 106 U/L (73-393) Laboratory results reviewed by me Medications Administered Medications (Trade) Dose Ordered Sig/Miroslava Route Start Time Stop Time Status Last Admin Dose Admin Acetaminophen (Tylenol Tab) 1,000 mg NOW STAT PO 08/19/17 15:14 08/19/17 15:15 DC 08/19/17 15:21 1,000 MG Ibuprofen (Motrin Tab) 600 mg NOW STAT PO 08/19/17 15:14 08/19/17 15:15 DC 08/19/17 15:20 600 MG ECG Indication: chest pain Rate (beats per minute): 83 Rhythm: other (Normal intervals, normal axis, no other STS changes or TWI) Findings: T-wave inversion (V2) Comparison ECG Date: 30 Jul 2017 Change: no significant change ED Course 1451: The patient was evaluated in room B4. A complete history and physical exam was performed. 1641: I reevaluated the patient. Discussed results and discharge instructions: She verbalized understanding and agreement. The patient is ready for discharge. Medical Decision The patient is a 22 year old white female with a past medical history of pneumonia and a blood clot who presents to the ED with a cc of sharp left sided chest pain beginning last night. Positive radiation down her left arm with tingling in her left hand. Negative fevers, chills, shortness of breath, cough, nausea, vomiting, breast tenderness, breast swelling, breast discharge, leg swelling, or leg pain. Differential diagnosis: Etiologies such as cardiac ischemia, aortic dissection, pulmonary embolism, pneumonia, pneumothorax, musculoskeletal, infections, pericarditis, myocarditis , esophageal rupture, gastrointestinal, as well as others were entertained. Patient was seen and evaluated the bedside. Patient did complain of some left- sided chest pain did radiate to her left arm. Patient denies any exertional symptoms. Patient denies any nausea or vomiting. Patient denies any diaphoresis. Exam the patient is very well-appearing. Patient did have a prior history of PE and was on Coumadin for some time this was diagnosed approximately 3 years prior but has not been on any recurrent antiquated therapy. Patient did have blood work, EKG, troponin, d-dimer, chest x-ray completed. Patient's EKG is nonischemic. Patient has negative troponin. Given the symptoms even with a slightly concerning story of the patient is less likely to have ACS with a heart score less than 4 is suitable for outpatient follow-up and treatment. Patient did have a d-dimer that was not positive thus less likely PE. Patient's chest x-ray was otherwise clear and no evidence for infection, pneumothorax, pleural effusion. Patient's blood work was also fairly unremarkable. Patient was deemed suitable for outpatient follow-up and treatment. Patient was informed of all findings. Patient was agreeable to this plan of care. Patient was given strict follow-up, discharge, and return precautions. All questions were answered. Patient was deemed suitable for outpatient follow-up at this time. Patient agreed with the plan of care and was safely discharged home. Medication Reconcilliation Current Medication List: was personally reviewed by me Blood Pressure Screening Patient's blood pressure: Normal blood pressure Blood pressure disposition: Did not require urgent referral Impression Primary Impression: Chest pain Additional Impression: Encounter for smoking cessation counseling Scribe Attestation The scribe's documentation has been prepared under my direction and personally reviewed by me in its entirety. I confirm that the note above accurately reflects all work, treatment, procedures, and medical decision making performed by me. Departure Information Dispostion Home / Self-Care Referrals Melissa Kolb D.O. (PCP) Forms HOME CARE DOCUMENTATION FORM, IMPORTANT VISIT INFORMATION Patient Instructions Chest Pain - [facility], [facility] Additional Instructions Please return to the emergency department if you have worsening or recurrent symptoms not amenable to at-home treatment. Please call for a follow-up appointment with her primary care physician. Please take your medications as prescribed. If you have other concerns and/or complaints please feel free to also call your primary care physician's office or return the ED for further evaluation, management, and treatment. You may take 600 mg Ibuprofen every 6 hours as needed for pain with food for no more than 2 consecutive days. You may take tylenol 1000 mg every 6 hours as needed for pain. You may take motrin and tylenol separately or at the same time. Take your medications as prescribed. You have been examined and treated today on an emergency basis only. This is not a substitute for, or an effort to provide, complete comprehensive medical care. It is impossible to recognize and treat all injuries or illnesses in a single emergency department visit. It is therefore important that you follow up closely with [facility], your PCP, and/or your specialist(s). Call as soon as possible for an appointment. Thank you for your time and consideration. I look forward to speaking with you again soon. Please don't hesitate to call us if you have any questions. Problem Qualifiers Primary Impression: Chest pain Chest pain type: unspecified Qualified Codes: R07.9 - Chest pain, unspecified
[2017-08-19] MEDS ORDERED: IBUPROFEN 600 MG TAB PO STA (15:14)
[2017-08-19] MEDS ORDERED: ACETAMINOPHEN 500 MG TAB PO STA (15:14)
[2017-08-19 15:22] LABS: BASO % 0.2 %; BASO ABS # 0.01 K/uL (0-0.2); EOS % 4.8 %; EOS ABS # 0.31 K/uL (0-0.5); HEMATOCRIT 41.3 % (37-47); HEMOGLOBIN 14.2 g/dL (12.0-16.0); IG# 0.01 K/uL (0.00-0.02); LYMPH % 31.6 %; LYMPH ABS # 2.06 K/uL (1.2-3.4); MEAN CORPUSCULAR HEMOGLOBIN 31.3 pg (25-34); MEAN CORPUSCULAR HGB CONC 34.4 g/dl (32-36); MEAN PLATELET VOLUME 9.5 fL (7.4-10.4); MONO % 8.1 %; MONO ABS # 0.53 K/uL (0.11-0.59); NEUT % 55.1 %; NEUT ABS # 3.59 K/uL (1.4-6.5); PLATELET COUNT 248 K/uL (130-400); RED CELL DISTRIBUTION WIDTH SD 45.2 fL (36.4-46.3); WHITE BLOOD COUNT 6.51 K/uL (4.8-10.8)
[2017-08-19 15:36] LABS: PTT PATIENT 27.4 SECONDS (21.0-31.0)
--- NOTE | 2017-08-19 15:38 | DIAGNOSTIC IMAGING REPORT ---
CHEST ONE VIEW PORTABLE CLINICAL HISTORY: Difficult chest pain COMPARISON STUDY: 08/02/2017 FINDINGS: The cardiac and mediastinal contours are normal. There is no evidence of focal pulmonary consolidation. There is no evidence of failure. No pleural effusions are visualized.[ IMPRESSION: No active disease in the chest. Electronically signed by: Alli Lopez M.D. 08/19/2017 3:36 PM Dictated Date/Time: 08/19/2017 3:36 PM
[2017-08-19 15:55] LABS: ALBUMIN 3.4 gm/dl (3.4-5.0); ALT/SGPT 21 U/L (12-78); BLOOD UREA NITROGEN 12 mg/dl (7-18); CALCIUM 9.1 mg/dl (8.5-10.1); CARBON DIOXIDE 25 mmol/L (21-32); CREATININE 0.78 mg/dl (0.60-1.20); GLUCOSE 80 mg/dl (70-99); LIPASE 106 U/L (73-393); POTASSIUM 3.9 mmol/L (3.5-5.1); SODIUM 137 mmol/L (136-145)
[2017-08-19 16:03] LABS: ALKALINE PHOSPHATASE 62 U/L (45-117); AST/SGOT 11 U/L (15-37); TOTAL PROTEIN 7.5 gm/dl (6.4-8.2)
[2017-08-19 17:03] VITALS: BP 114/58; PULSE 95; O2SAT 96
== END 2017-08-19 17:04 | disposition home or self-care (01) ==
LOC: C.EDB 13:33
DX: R07.9 Chest pain, unspecified (principal); Z71.6 Tobacco abuse counseling; J45.909 Unspecified asthma, uncomplicated; E78.5 Hyperlipidemia, unspecified; K21.9 Gastro-esophageal reflux disease without esophagitis; N32.81 Overactive bladder; R56.9 Unspecified convulsions; F43.10 Post-traumatic stress disorder, unspecified; F17.200 Nicotine dependence, unspecified, uncomplicated; Z86.718 Personal history of other venous thrombosis and embolism; Z87.442 Personal history of urinary calculi; Z79.3 Long term (current) use of hormonal contraceptives; Z83.3 Family history of diabetes mellitus; Z82.0 Family history of epilepsy and other diseases of the nervous system

== ENCOUNTER 2017-08-24 20:03 | Emergency (ER) | payer OTHER ==
[~2017-08-24] VITALS: Ht 170.2 cm; Wt 102.6 kg
[~2017-08-24 20:03] MED LIST changes: -BCPILLS PO; -CLC150 PO; -FOLI1TAB8 PO; -LCTX PO; -LEVE750T PO; -PRD20 PO; +RRALBUTNEB NEB; -RRALBUTNEB PO; -VNTHFA/IN INH
[2017-08-24 20:06] VITALS: TEMP 36.6; Ht 170.2 cm; Wt 102.6 kg
[2017-08-24 20:45] VITALS: O2SAT 99
[2017-08-24] MEDS ORDERED: ACET-1256 PO (21:08)
[2017-08-24] MEDS ORDERED: TPRSR/25 PO (21:08)
[2017-08-24] MEDS ORDERED: NORT25CA PO (21:08)
[2017-08-24] MEDS ORDERED: BCPILLS PO (21:11)
[2017-08-24] MEDS ORDERED: VNTHFA/IN INH (21:11)
[2017-08-24] MEDS ORDERED: FOLI1TAB8 PO (21:11)
[2017-08-24] MEDS ORDERED: SODIUM CHLORIDE 0.9% 1000ML 2,000 ML IV STA (21:15)
[2017-08-24] MEDS ORDERED: KETOROLAC TROMETHAMINE 30 MG/ML VIAL IV STA (21:15)
--- NOTE | 2017-08-24 21:19 | EMERGENCY ROOM VISIT NOTE ---
History Report prepared by Santosh: Aicha Dong Under the Supervision of: Dr. Ellis Melendez M.D. First contact with patient: 21:03 Chief Complaint: CHEST PAIN Stated Complaint: CHEST PAIN-SHARP GOING DOWN ARM,PALPATATIONS Nursing Triage Summary: Pt reporting right sided chest pain that radiates down into right arm. Does not change with deep inspiration. Rated 9/10. History of Present Illness The patient is a 22 year old female who presents to the Emergency Room with complaints of worsening sharp right sided chest pain beginning five days ago. The patient states her pain radiates down her right arm. Her pain worsens with taking a deep breath. The patient went to her PCP today who did an EKG which she states was abnormal. The patient was seen in the ED on August 19 for the same symptoms. She also notes heart palpations when she stands up. She denies any cough, shortness of breath, abdominal pain, congestion, fever, chills, nausea or vomiting. She reports she's been eating and drinking normally. The patient was admitted for left sided pneumonia in July. Per mother, the patient has a seizure the day before the was admitted for pneumonia. She also has a history of a DVT. Source of History: patient Onset: 5 days ago Position: chest Quality: sharp Timing: worsening Modifying Factors (Worsening): breathing Associated Symptoms: + chest pain, No fevers, No chills, No cough, No SOB, No nausea, No vomiting, No abdominal pain Review of Systems See HPI for pertinent positives and negatives. A total of ten systems were reviewed and were otherwise negative. Past Medical & Surgical Medical Problems: (1) Asthma (2) Dyslipidemia (3) GERD (gastroesophageal reflux disease) (4) Kidney stone (5) OAB (overactive bladder) (6) Ovarian cyst (7) PTSD (post-traumatic stress disorder) (8) Seizures (9) Sepsis (10) Vaginal delivery Surgical Problems: (1) H/O colonoscopy (2) H/O esophagogastroduodenoscopy (3) H/O foot surgery (4) S/P laparoscopic cholecystectomy (5) S/P removal of ovarian cyst (6) Status post Mohs surgery Family History Diabetes mellitus FATHER GRANDMOTHER FH: cancer FATHER FH: gallbladder disease FH: heart disease FH: seizures MOTHER Social History Smoking Status: Current Every Day Smoker Alcohol Use: none Drug Use: none Marital Status: in relationship Housing Status: lives with family Occupation Status: unemployed Current/Historical Medications Scheduled Control Pills ( Control Pills), 1 TAB PO QAM Folic Acid (Folvite), 3 MG PO QAM Lamotrigine (Lamictal), 200 MG PO BID Levetiracetam (Keppra), 750 MG PO BID Levothyroxine Sodium (Levothyroxine Sodium), 50 MCG PO DAILY Metoprolol Succinate (Metoprolol Succinate ER), 12.5 MG PO DAILY Nortriptyline (Pamelor), 25 MG PO HS Omeprazole (Prilosec), 40 MG PO DAILY Scheduled PRN Acetaminophen (Tylenol), 1,000 MG PO Q6H PRN for Headache Albuterol Hfa (Ventolin Hfa), 2 PUFFS INH UD PRN for Asthma Symptoms Albuterol Sulf (Albuterol Sulfate), 2.5 MG NEB Q4H PRN for Shortness of Breath Allergies Coded Allergies: Hydromorphone (Verified Allergy, Severe, Respirations stopped., 07/29/17) Amoxicillin (Verified Allergy, Intermediate, RASH, 07/29/17) Morphine (Verified Allergy, Intermediate, HIVES, 07/29/17) Oxycodone (Verified Allergy, Intermediate, Hives, 07/29/17) Adhesives (Verified Adverse Reaction, Mild, RASH, 07/29/17) Physical Exam Vital Signs Date Time Temp Pulse Resp B/P (MAP) Pulse Ox O2 Delivery O2 Flow Rate FiO2 08/24/17 22:33 61 20 100 08/24/17 22:30 129/87 08/24/17 22:03 91 22 100 08/24/17 22:00 125/79 08/24/17 21:33 91 23 97 08/24/17 21:30 128/89 08/24/17 21:03 97 15 98 08/24/17 21:00 125/75 08/24/17 20:53 91 08/24/17 20:45 99 Room Air 08/24/17 20:45 99 Room Air 08/24/17 20:44 126/88 08/24/17 20:06 36.6 101 18 122/79 99 Room Air Physical Exam GENERAL: Awake, alert, uncomfortable-appearing, in no distress HENT: Normocephalic, atraumatic. Oropharynx unremarkable. Dry MM. EYES: Normal conjunctiva. Sclera non-icteric. NECK: Supple. No nuchal rigidity. FROM. No JVD. RESPIRATORY: Clear to auscultation. CARDIAC: Regular rate, normal rhythm. Extremities warm and well perfused. Pulses equal. ABDOMEN: Soft, non-distended. No tenderness to palpation. No rebound or guarding. No masses. RECTAL: Deferred. MUSCULOSKELETAL: Chest examination reveals no tenderness. The back is symmetrical on inspection without obvious abnormality. There is no CVA tenderness to palpation. No joint edema. LOWER EXTREMITIES: Calves are equal size bilaterally and non-tender. No edema. No discoloration. NEURO: Normal sensorium. No sensory or motor deficits noted. SKIN: No rash or jaundice noted. Medical Decision & Procedures ER Provider Diagnostic Interpretation: Radiology results as stated below per my review and radiologist interpretation: CHEST ONE VIEW PORTABLE FINDINGS: Lung volumes are normal. There is no pneumothorax or pleural effusion. Pulmonary vascularity is normal. Cardiomediastinal silhouette is normal. Appearance of the chest is unchanged. IMPRESSION: No acute cardiopulmonary findings. Electronically signed by: Rohith Raphael M.D. Laboratory Results 08/24/17 21:05 08/24/17 21:05 Test 08/24/17 21:05 08/24/17 21:15 Red Blood Count 4.53 M/uL (4.2-5.4) Mean Corpuscular Volume 91.4 fL (80-100) Mean Corpuscular Hemoglobin 31.1 pg (25-34) Mean Corpuscular Hemoglobin Concent 34.1 g/dl (32-36) RDW Standard Deviation 45.5 fL (36.4-46.3) RDW Coefficient of Variation 13.8 % (11.5-14.5) Mean Platelet Volume 9.7 fL (7.4-10.4) Prothrombin Time 10.7 SECONDS (9.0-12.0) Prothromb Time International Ratio 1.0 (0.9-1.1) Activated Partial Thromboplast Time 28.0 SECONDS (21.0-31.0) Partial Thromboplastin Ratio 1.1 Anion Gap 7.0 mmol/L (3-11) Est Creatinine Clear Calc Drug Dose 144.9 ml/min Estimated GFR () 131.1 Estimated GFR (Non- 113.1 BUN/Creatinine Ratio 15.4 (10-20) Calcium Level 8.7 mg/dl (8.5-10.1) Total Bilirubin 0.1 mg/dl (0.2-1) Aspartate Amino Transf (AST/SGOT) 11 U/L (15-37) Alanine Aminotransferase (ALT/SGPT) 29 U/L (12-78) Alkaline Phosphatase 61 U/L (45-117) Total Creatine Kinase 39 U/L (26-192) Creatine Kinase MB < 0.5 ng/ml (0.5-3.6) Creatine Kinase MB Ratio (0-3.0) Troponin I < 0.015 ng/ml (0-0.045) Total Protein 7.4 gm/dl (6.4-8.2) Albumin 3.3 gm/dl (3.4-5.0) Globulin 4.1 gm/dl (2.5-4.0) Albumin/Globulin Ratio 0.8 (0.9-2) Bedside Troponin I < 0.030 ng/ml (0-0.045) Laboratory results reviewed by me Medications Administered Medications (Trade) Dose Ordered Sig/Miroslava Route Start Time Stop Time Status Last Admin Dose Admin Sodium Chloride 2,000 ml @ 999 mls/hr Q2H1M STAT IV 08/24/17 21:15 08/24/17 23:15 DC 08/24/17 21:46 999 MLS/HR Ketorolac Tromethamine (Toradol Inj) 15 mg NOW STAT IV 08/24/17 21:15 08/24/17 21:17 DC 08/24/17 21:45 15 MG ECG Indication: chest pain Rate (beats per minute): 90 Rhythm: normal sinus Findings: no acute ischemic change, other (normal axis) ED Course 2109: The patient was evaluated in room A11B. A complete history and physical exam was performed. 2246: I reevaluated the patient. Discussed results and discharge instructions: She verbalized understanding and agreement. The patient is ready for discharge. Medical Decision I reviewed the patient's past medical history, medications, and the nursing notes as described above. Differential diagnosis: Etiologies such as cardiac ischemia, aortic dissection, pulmonary embolism, pneumonia, pneumothorax, musculoskeletal, infections, pericarditis, myocarditis , esophageal rupture, gastrointestinal, as well as others were entertained. The patient is a 22-year-old woman with a past medical history of pneumonia in July, and remote history of provoked DVT not on anticoagulation who presents emergency Department with persistent chest pain after being seen in emergency Department for the same several days ago per hpi. She was follow-up with her physician today and per the patient and with question of an EKG abnormality. However EKG here is unremarkable and unchanged from prior. Trop negative in the setting of constant symptoms makes ACS not likely. Denies burning or worsening when supine, which makes pericarditis less likely. D-dimer last visit was negative which makes PE unlikely. Bedside echo with grossly normal LV and RV size and function. No pericardial effusion. Patient feeling improved after IV fluid hydration and Toradol suggesting likely muscular strain in the setting of the patient's recent pneumonia. Findings and plan for follow- up reviewed with patient. Patient agreeable and d/c'd per discharge instructions. Medication Reconcilliation Current Medication List: was personally reviewed by me Blood Pressure Screening Patient's blood pressure: Normal blood pressure Impression Primary Impression: Chest pain Additional Impression: Dehydration Scribe Attestation The scribe's documentation has been prepared under my direction and personally reviewed by me in its entirety. I confirm that the note above accurately reflects all work, treatment, procedures, and medical decision making performed by me. Departure Information Dispostion Home / Self-Care Referrals Melissa Kolb D.O. (PCP) Forms HOME CARE DOCUMENTATION FORM, IMPORTANT VISIT INFORMATION Patient Instructions ED Chest Pain Atypical Unkn Cause, ED Chest Pain Costochondritis, ED Dehydration , My [facility] Additional Instructions Please follow up with your primary care physician in the next 1-3 days for re- evaluation. The cause of your symptoms is unclear at this time but may be due to muscular strain. Otherwise, your exam, EKG, chest xray, Bedside ultrasound of your heart, and lab results did not show signs of an emergent condition at this time. Acetaminophen or Ibuprofen for pain as needed. Return to the emergency department for worsening symptoms as described in the accompanying instructions. Problem Qualifiers
[2017-08-24 21:29] LABS: HEMATOCRIT 41.4 % (37-47); HEMOGLOBIN 14.1 g/dL (12.0-16.0); MEAN CELL VOLUME 91.4 fL (80-100); MEAN CORPUSCULAR HEMOGLOBIN 31.1 pg (25-34); MEAN CORPUSCULAR HGB CONC 34.1 g/dl (32-36); MEAN PLATELET VOLUME 9.7 fL (7.4-10.4); PLATELET COUNT 262 K/uL (130-400); RED CELL DISTRIBUTION WIDTH CV 13.8 % (11.5-14.5); RED CELL DISTRIBUTION WIDTH SD 45.5 fL (36.4-46.3)
--- NOTE | 2017-08-24 21:36 | DIAGNOSTIC IMAGING REPORT ---
CHEST ONE VIEW PORTABLE CLINICAL HISTORY: Chest pain. COMPARISON STUDY: Chest radiograph August 19, 2017. FINDINGS: Lung volumes are normal. There is no pneumothorax or pleural effusion. Pulmonary vascularity is normal. Cardiomediastinal silhouette is normal. Appearance of the chest is unchanged. IMPRESSION: No acute cardiopulmonary findings. Electronically signed by: Rohith Raphael M.D. 08/24/2017 9:35 PM Dictated Date/Time: 08/24/2017 9:34 PM
[2017-08-24 21:51] LABS: ALBUMIN 3.3 gm/dl (3.4-5.0); ALT/SGPT 29 U/L (12-78); BLOOD UREA NITROGEN 12 mg/dl (7-18); CALCIUM 8.7 mg/dl (8.5-10.1); CARBON DIOXIDE 26 mmol/L (21-32); CREATININE 0.75 mg/dl (0.60-1.20); GLUCOSE 90 mg/dl (70-99); POTASSIUM 3.6 mmol/L (3.5-5.1); SODIUM 140 mmol/L (136-145)
[2017-08-24 21:56] LABS: ALKALINE PHOSPHATASE 61 U/L (45-117); AST/SGOT 11 U/L (15-37); CKMB < 0.5 ng/ml (0.5-3.6); TOTAL PROTEIN 7.4 gm/dl (6.4-8.2)
[2017-08-24 22:30] VITALS: BP 129/87
[2017-08-24 22:33] VITALS: PULSE 61; O2SAT 100
[2017-08-24] MEDS ORDERED: LEVE750T PO (23:32)
== END 2017-08-24 22:55 | disposition home or self-care (01) ==
LOC: C.EDB 20:04 → C.EDA 22:55
DX: R07.9 Chest pain, unspecified (principal); E86.0 Dehydration; E78.5 Hyperlipidemia, unspecified; N83.209 Unspecified ovarian cyst, unspecified side; G40.909 Epilepsy, unspecified, not intractable, without status epilepticus; K21.9 Gastro-esophageal reflux disease without esophagitis; J45.909 Unspecified asthma, uncomplicated; F17.200 Nicotine dependence, unspecified, uncomplicated; Z87.440 Personal history of urinary (tract) infections; Z90.49 Acquired absence of other specified parts of digestive tract; Z98.890 Other specified postprocedural states; Z79.899 Other long term (current) drug therapy; Z88.1 Allergy status to other antibiotic agents; Z88.5 Allergy status to narcotic agent; Z91.09 Other allergy status, other than to drugs and biological substances; Z83.3 Family history of diabetes mellitus; Z80.9 Family history of malignant neoplasm, unspecified; Z83.79 Family history of other diseases of the digestive system; Z82.49 Family history of ischemic heart disease and other diseases of the circulatory system; Z82.0 Family history of epilepsy and other diseases of the nervous system

== ENCOUNTER 2017-08-28 17:56 | Emergency (ER) | payer OTHER ==
[~2017-08-28] VITALS: Ht 170.2 cm; Wt 102.4 kg
[~2017-08-28 17:56] MED LIST changes: +ACET-1256 PO; -ACET-1311 PO; +BCPILLS PO; +FOLI1TAB8 PO; +LEVE750T PO; +NORT25CA PO; +TPRSR/25 PO; +VNTHFA/IN INH
[2017-08-28 18:03] VITALS: Ht 170.2 cm; Wt 102.4 kg
--- NOTE | 2017-08-28 18:28 | EMERGENCY ROOM VISIT NOTE ---
History First contact with patient: 18:10 Chief Complaint: ABDOMINAL PAIN Stated Complaint: ABD PAIN,HX OF OVARIAN CYSTS,VOMITING Nursing Triage Summary: Pt c/o right lower abdominal pain. Take BCP and is on last pill of the pack and still does not have her period, concerns for . History of ovarian cycst. N/V, denies diarrhea and constipation. Hx seizures History of Present Illness The patient is a 22 year old female who presents to the Emergency Room with complaints of right lower quadrant pain since last night. The patient is concerned that she could be , as she is on the last pill of her control pack and still has not gotten her period. The patient states last night , she noticed she had a little bit of an upset stomach. She did vomit once due to the pain. The patient complains of a stabbing pain in the right lower quadrant which has now become constant. She did take Aleve and Tylenol, neither of which have helped. She did try a heating pad. The patient states the pain feels the same as she is experienced with previous ovarian cyst. Sleeping helps, but nothing aggravates the pain. She has not experienced a fever, chills, constipation, diarrhea, back pain, urinary symptoms including hematuria, pyuria, or burning with urination. She states she has not recently been ill, and denies upper respiratory infection symptoms. The patient states she did have one normal bowel movement earlier today. She has been eating and drinking, but has had a decreased appetite due to pain. Review of Systems A complete 10 point review of systems was reviewed with the patient with pertinent positives and negatives as per history of present illness. All else were negative. Past Medical/Surgical History Medical Problems: (1) Asthma (2) Dyslipidemia (3) GERD (gastroesophageal reflux disease) (4) Kidney stone (5) OAB (overactive bladder) (6) Ovarian cyst (7) PTSD (post-traumatic stress disorder) (8) Seizures (9) Sepsis (10) Vaginal delivery Surgical Problems: (1) H/O colonoscopy (2) H/O esophagogastroduodenoscopy (3) H/O foot surgery (4) S/P laparoscopic cholecystectomy (5) S/P removal of ovarian cyst (6) Status post Mohs surgery Family History Diabetes mellitus FATHER GRANDMOTHER FH: cancer FATHER FH: gallbladder disease FH: heart disease FH: seizures MOTHER Social History Smoking Status: Current Every Day Smoker Alcohol Use: none Drug Use: none Marital Status: in relationship Housing Status: lives with family Occupation Status: unemployed Current/Historical Medications Scheduled Control Pills ( Control Pills), 1 TAB PO QAM Folic Acid (Folvite), 3 MG PO QAM Lamotrigine (Lamictal), 200 MG PO BID Levetiracetam (Keppra), 750 MG PO BID Levothyroxine Sodium (Levothyroxine Sodium), 50 MCG PO DAILY Metoprolol Succinate (Metoprolol Succinate ER), 12.5 MG PO DAILY Nortriptyline (Pamelor), 25 MG PO HS Omeprazole (Prilosec), 40 MG PO DAILY Scheduled PRN Acetaminophen (Tylenol), 1,000 MG PO Q6H PRN for Headache Albuterol Hfa (Ventolin Hfa), 2 PUFFS INH UD PRN for Asthma Symptoms Albuterol Sulf (Albuterol Sulfate), 2.5 MG NEB Q4H PRN for Shortness of Breath Physical Exam Vital Signs Date Time Temp Pulse Resp B/P (MAP) Pulse Ox O2 Delivery O2 Flow Rate FiO2 08/28/17 21:47 76 16 124/74 96 08/28/17 21:07 67 16 105/66 94 Room Air 08/28/17 19:46 36.8 75 18 105/66 96 Room Air 08/28/17 18:03 36.5 109 17 145/94 99 Room Air Physical Exam VITALS: Vitals are noted on the nurse's note and reviewed by myself. Vital signs stable, no fever. GENERAL: This is a 22-year-old obese white female, in no acute distress, nondiaphoretic, well-developed well-nourished. SKIN: The skin was without rashes, erythema, edema, or bruising. There is no tenting of the skin. Capillary reflex less than 2 seconds. HEAD: Normocephalic atraumatic. EARS: External auditory canals clear, tympanic membranes pearly beyer without erythema or effusion bilaterally. EYES: Pupils equal round and reactive to light and accommodation. Conjunctivae without injection, sclerae without icterus. Extraocular movements intact. NOSE: Patent, turbinates without inflammation or discharge. No sinus tenderness. MOUTH: Mucous membranes moist. Tonsils are not enlarged. Pharynx without erythema or exudate. Uvula midline. Airway patent. Tongue does not deviate. NECK: Supple without nuchal rigidity. No lymphadenopathy. No thyromegaly. Cervical spine is nontender. No JVD. HEART: Regular rate and rhythm without murmurs gallops or rubs. LUNGS: Clear to auscultation bilaterally without wheezes, rales or rhonchi. No dullness to percussion. No retractions or accessory muscle use. ABDOMEN: Positive bowel sounds x 4. Normal tympanic percussion. Right lower quadrant tenderness on palpation. Otherwise, the abdomen was soft, nontender, without masses or organomegaly. Davenport sign negative. No guarding or rebound tenderness. MUSCULOSKELETAL: No muscle atrophy, erythema, or edema noted. Full range of motion without joint tenderness in all extremities. No tenderness to palpation. Normal gait. Strength 5/5 throughout. NEURO: Patient was alert and oriented to person place and time. Normal sensation to light and sharp touch. Deep tendon reflexes 2+ throughout. No focal neurological deficits. Medical Decision & Procedures ER Provider Diagnostic Interpretation: PELVIC ULTRASOUND, TRANSABDOMINAL AND TRANSVAGINAL HISTORY: Right lower quadrant pain. COMPARISON: Pelvic ultrasound 04/06/2017. FINDINGS: Uterus: The uterus measures 5.8 x 4.7 x 3.3 cm and is retroflexed. No uterine masses. Endometrial stripe: 2 mm in thickness. Right ovary: Normal in size and demonstrates normal color flow. Multiple small follicles/cysts. Left ovary: Normal in size and demonstrates normal color flow. Multiple small follicles/cysts. Miscellaneous:No pelvic free fluid. IMPRESSION: No significant abnormality identified within the pelvis. Electronically signed by: Neo Young M.D. 08/28/2017 9:01 PM Dictated Date/Time: 08/28/2017 8:59 PM CBC was without leukocytosis, anemia, thrombocytopenia. Urinalysis showed 1+ occult blood and epithelial cells, but no signs of infection. PRP did not show renal, hepatic, electrolyte abnormalities. Laboratory Results 08/28/17 18:44 Red Blood Count 4.41, Mean Corpuscular Volume 89.3, Mean Corpuscular Hemoglobin 31.3, Mean Corpuscular Hemoglobin Concent 35.0, Mean Platelet Volume 9.4, Neutrophils (%) (Auto) 45.3, Lymphocytes (%) (Auto) 41.0, Monocytes (%) (Auto) 7.2, Eosinophils (%) (Auto) 6.1, Basophils (%) (Auto) 0.2, Neutrophils # (Auto) 2.85, Lymphocytes # (Auto) 2.57, Monocytes # (Auto) 0.45, Eosinophils # (Auto) 0.38, Basophils # (Auto) 0.01 08/28/17 18:44 Test 08/28/17 18:30 08/28/17 18:44 Urine Color YELLOW Urine Appearance CLEAR (CLEAR) Urine pH 6.0 (4.5-7.5) Urine Specific [place] 1.018 (1.000-1.030) Urine Protein NEG (NEG) Urine Glucose (UA) NEG (NEG) Urine Ketones NEG (NEG) Urine Occult Blood 1+ (NEG) Urine Nitrite NEG (NEG) Urine Bilirubin NEG (NEG) Urine Urobilinogen NEG (NEG) Urine Leukocyte Esterase NEG (NEG) Urine WBC (Auto) 1-5 /hpf (0-5) Urine RBC (Auto) 0-4 /hpf (0-4) Urine Hyaline Casts (Auto) 1-5 /lpf (0-5) Urine Epithelial Cells (Auto) 20-30 /lpf (0-5) Urine Bacteria (Auto) NEG (NEG) White Blood Count 6.27 K/uL (4.8-10.8) Red Blood Count 4.41 M/uL (4.2-5.4) Hemoglobin 13.8 g/dL (12.0-16.0) Hematocrit 39.4 % (37-47) Mean Corpuscular Volume 89.3 fL (80-100) Mean Corpuscular Hemoglobin 31.3 pg (25-34) Mean Corpuscular Hemoglobin Concent 35.0 g/dl (32-36) Platelet Count 256 K/uL (130-400) Mean Platelet Volume 9.4 fL (7.4-10.4) Neutrophils (%) (Auto) 45.3 % Lymphocytes (%) (Auto) 41.0 % Monocytes (%) (Auto) 7.2 % Eosinophils (%) (Auto) 6.1 % Basophils (%) (Auto) 0.2 % Neutrophils # (Auto) 2.85 K/uL (1.4-6.5) Lymphocytes # (Auto) 2.57 K/uL (1.2-3.4) Monocytes # (Auto) 0.45 K/uL (0.11-0.59) Eosinophils # (Auto) 0.38 K/uL (0-0.5) Basophils # (Auto) 0.01 K/uL (0-0.2) RDW Standard Deviation 43.4 fL (36.4-46.3) RDW Coefficient of Variation 13.1 % (11.5-14.5) Immature Granulocyte % (Auto) 0.2 % Immature Granulocyte # (Auto) 0.01 K/uL (0.00-0.02) Anion Gap 11.0 mmol/L (3-11) Est Creatinine Clear Calc Drug Dose 152.9 ml/min Estimated GFR () 140.1 Estimated GFR (Non- 120.9 BUN/Creatinine Ratio 14.0 (10-20) Calcium Level 8.4 mg/dl (8.5-10.1) Medications Administered Medications (Trade) Dose Ordered Sig/Miroslava Route Start Time Stop Time Status Last Admin Dose Admin Ketorolac Tromethamine (Toradol Inj) 30 mg NOW STAT IV 08/28/17 19:35 08/28/17 19:36 DC 08/28/17 19:44 30 MG ED Course The patient was seen and evaluated as above. IV access obtained, labs drawn. The patient was given 30 mg Toradol IV. She did note significant improvement in her symptoms. The patient was taken to ultrasound and brought back. Results of labs and ultrasound were reviewed, and discussed with her and her family member at bedside. Repeat abdominal exam was performed. This did not reveal any tenderness with the exception of some very mild right lower quadrant tenderness. The patient states she did have significant improvement, and is no longer experiencing tenderness on palpation. Negative rebound and Rovsing's signs. The abdomen was soft and the patient continues to have active bowel sounds in all 4 quadrants. Discharge instructions were reviewed, the patient was discharged home in good condition. Medical Decision This is a 22-year-old obese white female who presents to the emergency department complaining of right lower quadrant abdominal pain, similar to pain she 6. In the past with ovarian cysts. The patient's pain improved significantly with Toradol. Ultrasound did reveal multiple ovarian cysts on bilateral ovaries. I did not feel terribly confident that this is what is causing the patient's pain, however I did discuss with her options for more imaging to evaluate for appendicitis or bowel obstruction. I discussed the benefits versus risks of performing an X-ray or CT scan of the abdomen/pelvis with the patient. She states she is feeling much better, and does have an appointment scheduled to follow up with her PCP tomorrow at lunchtime. The patient states she would like to go home and does not wish to continue to wait here to have these tests performed, and declines further imaging at this time. She was given very strict return precautions, and encouraged to return for fever , abdominal pain which is worse, or other symptoms. I do feel that her plan is reasonable, as she did respond very well, has an overall negative abdominal exam , and is afebrile with no elevated white count. She does already have an appointment scheduled with her PCP tomorrow, and I feel that it is reasonable for the patient to follow up then unless her symptoms worsen sooner. Etiologies such as appendicitis, diverticulitis, obstruction, inflammatory bowel disease, renal colic, PUD, biliary pathology, pancreatitis, mesenteric ischemia, aortic pathology, infections, genitourinary, UTI, perforated viscus, as well as others were entertained. Medication Reconcilliation Current Medication List: was personally reviewed by me Blood Pressure Screening Patient's blood pressure: Normal blood pressure Impression Primary Impression: Right lower quadrant abdominal pain Additional Impression: Ovarian cyst Departure Information Dispostion Home / Self-Care Condition GOOD Referrals Melissa Kolb D.O. (PCP) Patient Instructions ED Abdominal Pain Unkn Cause, My [facility] Additional Instructions You have been treated in the Emergency Department your Abdominal Pain. Laboratory results and imaging studies have ruled out any emergent causes for your abdominal pain which would warrant admission or surgery. As discussed, we did not perform imaging to rule out appendicitis. As this pain as similar to the pain you have experienced in the past with ovarian cysts , I do feel that watchful waiting is appropriate, as you do not have an elevated WBC count or fever and your pain has improved. You do have an appointment scheduled tomorrow with your primary care provider, and I do feel that it is reasonable to follow up outpatient if your symptoms are improving. For pain control, you can use the following [id number] medicines (if >12 yo): Ibuprofen(Motrin, Advil) may be used for fever or pain. Use 600mg every six hours as needed. Take with food. Avoid using more than 2400mg in a 24 hour period. Do not use 2400mg per day for more than three consecutive days without physician direction. Prolonged inappropriate use can lead to stomach upset or ulcers. (AND/OR) Acetaminophen(Tylenol) may be used for fever or pain. Use 1000mg every six hours as needed. Avoid using more than 3000mg in a 24 hour period. Drink plenty of water and stay well hydrated. As with any trip to the Emergency Department, you should follow-up with your Primary Care Provider from today's visit. Return to the emergency department if your symptoms persist despite treatment plan outlined above or if the following symptoms occur: worsening abdominal pain , increased fevers, chills, worsening nausea/vomiting, blood in your stool or urine. Problem Qualifiers Additional Impression: Ovarian cyst Laterality: bilateral Qualified Codes: N83.201 - Unspecified ovarian cyst, right side; N83.202 - Unspecified ovarian cyst, left side
[2017-08-28 18:50] LABS: BASO % 0.2 %; BASO ABS # 0.01 K/uL (0-0.2); EOS % 6.1 %; EOS ABS # 0.38 K/uL (0-0.5); HEMATOCRIT 39.4 % (37-47); HEMOGLOBIN 13.8 g/dL (12.0-16.0); IG# 0.01 K/uL (0.00-0.02); LYMPH ABS # 2.57 K/uL (1.2-3.4); MEAN CELL VOLUME 89.3 fL (80-100); MEAN CORPUSCULAR HEMOGLOBIN 31.3 pg (25-34); MEAN PLATELET VOLUME 9.4 fL (7.4-10.4); MONO % 7.2 %; MONO ABS # 0.45 K/uL (0.11-0.59); NEUT % 45.3 %; NEUT ABS # 2.85 K/uL (1.4-6.5); PLATELET COUNT 256 K/uL (130-400); RED CELL DISTRIBUTION WIDTH CV 13.1 % (11.5-14.5); RED CELL DISTRIBUTION WIDTH SD 43.4 fL (36.4-46.3); WHITE BLOOD COUNT 6.27 K/uL (4.8-10.8)
[2017-08-28 19:20] LABS: CALCIUM 8.4 mg/dl (8.5-10.1); CREATININE 0.71 mg/dl (0.60-1.20)
[2017-08-28] MEDS ORDERED: KETOROLAC TROMETHAMINE 30 MG/ML VIAL IV STA (19:35)
[2017-08-28 19:45] LABS: POTASSIUM 3.6 mmol/L (3.5-5.1)
[2017-08-28 19:46] VITALS: TEMP 36.8
--- NOTE | 2017-08-28 21:02 | DIAGNOSTIC IMAGING REPORT ---
PELVIC ULTRASOUND, TRANSABDOMINAL AND TRANSVAGINAL HISTORY: Right lower quadrant pain. COMPARISON: Pelvic ultrasound 04/06/2017. FINDINGS: Uterus: The uterus measures 5.8 x 4.7 x 3.3 cm and is retroflexed. No uterine masses. Endometrial stripe: 2 mm in thickness. Right ovary: Normal in size and demonstrates normal color flow. Multiple small follicles/cysts. Left ovary: Normal in size and demonstrates normal color flow. Multiple small follicles/cysts. Miscellaneous:No pelvic free fluid. IMPRESSION: No significant abnormality identified within the pelvis. Electronically signed by: Neo Young M.D. 08/28/2017 9:01 PM Dictated Date/Time: 08/28/2017 8:59 PM
[2017-08-28 21:47] VITALS: BP 124/74; PULSE 76; O2SAT 96
--- NOTE | 2017-08-28 23:22 | EMERGENCY ROOM VISIT NOTE ---
ED Visit Note First contact with patient: 18:10 The patient was seen and examined with PA. I agree with the history, physical and findings. Please see the note for disposition and details
== END 2017-08-28 21:45 | disposition home or self-care (01) ==
LOC: C.EDB 17:57 → C.EDC 21:45
DX: R10.31 Right lower quadrant pain (principal); N83.201 Unspecified ovarian cyst, right side; N83.202 Unspecified ovarian cyst, left side; R11.10 Vomiting, unspecified; J45.909 Unspecified asthma, uncomplicated; K21.9 Gastro-esophageal reflux disease without esophagitis; E66.9 Obesity, unspecified; F17.200 Nicotine dependence, unspecified, uncomplicated; Z87.442 Personal history of urinary calculi; Z90.49 Acquired absence of other specified parts of digestive tract; Z98.890 Other specified postprocedural states; Z83.3 Family history of diabetes mellitus; Z82.0 Family history of epilepsy and other diseases of the nervous system; Z79.899 Other long term (current) drug therapy

== ENCOUNTER 2017-09-11 13:31 | Emergency (ER) | payer OTHER ==
[~2017-09-11] VITALS: Ht 170.2 cm; Wt 102.1 kg
[2017-09-11 13:50] VITALS: Ht 170.2 cm; Wt 102.1 kg
[2017-09-11] MEDS ORDERED: ACETAMINOPHEN 325 MG TAB PO STA (13:58)
[2017-09-11] MEDS ORDERED: ALBUT/IPRATROP 3MG/0.5MG NEB 3 ML VIAL INH STA (14:07)
--- NOTE | 2017-09-11 14:43 | EMERGENCY ROOM VISIT NOTE ---
History Report prepared by Santosh: lAexa Nichols Under the Supervision of: Dr. Jazmyn Palma M.D. First contact with patient: 13:54 Chief Complaint: FLU LIKE SX Stated Complaint: FEVER,PAIN,NO PERIOD IN 2 MONTHS History of Present Illness The patient is a 22 year old female who presents to the Emergency Room with complaints of worsening flu-like symptoms starting yesterday. The patient complains of body aches, fever, cough, difficulty breathing, sore throat, and diaphoresis. She states that she tried a breathing treatment, Tylenol, and cough syrup with no relief. The patient denies ear pain and urinary symptoms. The patient denies getting a flu shot. The patient notes that she has not had her menstrual cycle in 2 months and is sexually active. She states that she has taken a test and it was negative. She notes that she has cysts on her ovaries and thinks that it may be causing her symptoms. The patient states that she takes oral control. Source of History: patient Onset: yesterday Position: other (global) Quality: other (flu-like) Timing: worsening Associated Symptoms: + fevers, + diaphoresis, + sorethroat, + cough, + SOB, No urinary symptoms Note: The patient complains of body aches and no menstrual cycle for 2 months. The patient denies ear pain. Review of Systems See HPI for pertinent positives & negatives. A total of 10 systems reviewed and were otherwise negative. Past Medical & Surgical Medical Problems: (1) Asthma (2) Dyslipidemia (3) GERD (gastroesophageal reflux disease) (4) Kidney stone (5) OAB (overactive bladder) (6) Ovarian cyst (7) PTSD (post-traumatic stress disorder) (8) Seizures (9) Sepsis (10) Vaginal delivery Surgical Problems: (1) H/O colonoscopy (2) H/O esophagogastroduodenoscopy (3) H/O foot surgery (4) S/P laparoscopic cholecystectomy (5) S/P removal of ovarian cyst (6) Status post Mohs surgery Family History Diabetes mellitus FATHER GRANDMOTHER FH: cancer FATHER FH: gallbladder disease FH: heart disease FH: seizures MOTHER Social History Smoking Status: Never Smoker Alcohol Use: none Drug Use: none Marital Status: in relationship Housing Status: lives with family Occupation Status: unemployed Current/Historical Medications Scheduled Control Pills ( Control Pills), 1 TAB PO QAM Folic Acid (Folvite), 3 MG PO QAM Lamotrigine (Lamictal), 200 MG PO BID Levetiracetam (Keppra), 750 MG PO BID Levothyroxine Sodium (Levothyroxine Sodium), 50 MCG PO DAILY Metoprolol Succinate (Metoprolol Succinate ER), 25 MG PO DAILY Nortriptyline (Pamelor), 25 MG PO HS Omeprazole (Prilosec), 40 MG PO DAILY Oseltamivir (Tamiflu), 75 MG PO BID Scheduled PRN Acetaminophen (Tylenol), 1,000 MG PO Q6H PRN for Headache Albuterol Hfa (Ventolin Hfa), 2 PUFFS INH UD PRN for Asthma Symptoms Albuterol Sulf (Albuterol Sulfate), 2.5 MG NEB Q4H PRN for Shortness of Breath Allergies Coded Allergies: Hydromorphone (Verified Allergy, Severe, Respirations stopped., 08/28/17) Amoxicillin (Verified Allergy, Intermediate, RASH, 08/28/17) Morphine (Verified Allergy, Intermediate, HIVES, 08/28/17) Oxycodone (Verified Allergy, Intermediate, Hives, 08/28/17) Adhesives (Verified Adverse Reaction, Mild, RASH, 08/28/17) Physical Exam Vital Signs Date Time Temp Pulse Resp B/P (MAP) Pulse Ox O2 Delivery O2 Flow Rate FiO2 09/11/17 15:39 38.2 09/11/17 15:20 38.3 112 17 114/67 93 09/11/17 15:19 38.3 09/11/17 13:50 38.8 131 20 118/82 96 Room Air Physical Exam Vital signs reviewed. Noted to be febrile. General: Somewhat ill-appearing, obese,diaphoretic, in no significant distress. HEENT: No scleral icterus, PERRLA, neck supple. Atraumatic. Ears are clear bilaterally. Posterior pharynx is clear. Cardiovascular: Regular rate and rhythm, no extra sounds. Pulmonary: Clear to auscultation bilaterally, normal work of breathing. Abdomen: Soft, nontender, nondistended, positive bowel sounds. Musculoskeletal: Atraumatic, no peripheral edema. Neurologic: Patient awake alert and oriented x 3, full strength in all 4 extremities. Cranial nerves 2 through 12 grossly intact. Skin: Warm, dry, no rash Medical Decision & Procedures Laboratory Results Test 09/11/17 14:13 09/11/17 14:20 Influenza Type A Antigen POS for Influ A (NEG) Influenza Type B Antigen Neg for Influ B (NEG) Urine Color DK YELLOW Urine Appearance CLOUDY (CLEAR) Urine pH 5.5 (4.5-7.5) Urine Specific [place] 1.033 (1.000-1.030) Urine Protein 1+ (NEG) Urine Glucose (UA) NEG (NEG) Urine Ketones TRACE (NEG) Urine Occult Blood 2+ (NEG) Urine Nitrite NEG (NEG) Urine Bilirubin NEG (NEG) Urine Urobilinogen NEG (NEG) Urine Leukocyte Esterase NEG (NEG) Urine WBC (Auto) 1-5 /hpf (0-5) Urine RBC (Auto) 10-30 /hpf (0-4) Urine Hyaline Casts (Auto) 1-5 /lpf (0-5) Urine Epithelial Cells (Auto) >30 /lpf (0-5) Urine Bacteria (Auto) 1+ (NEG) Urine Pathogenic Casts /lpf (0) Urine Mucus PRESENT (NONE PRSENT) Urine Test NEG (NEG) Date/Time Source Procedure Growth Status 09/11/17 14:20 Urine , Clean Catch Urine Culture - Final MORE THAN THREE TYPES OF ORGANISMS WA... Complete Laboratory results per my review. Medications Administered Medications (Trade) Dose Ordered Sig/Miroslava Route Start Time Stop Time Status Last Admin Dose Admin Acetaminophen (Tylenol Tab) 650 mg NOW STAT PO 09/11/17 13:58 09/11/17 14:00 DC 09/11/17 14:10 650 MG Albuterol/ Ipratropium (Duoneb) 3 ml NOW STAT INH 09/11/17 14:07 09/11/17 14:08 DC 09/11/17 14:12 3 ML Albuterol/ Ipratropium (Combivent Respimat Inh) 2 puffs NOW STAT INH 09/11/17 15:17 09/11/17 15:18 DC 09/11/17 15:33 2 PUFFS Oseltamivir Phosphate (Tamiflu Cap) 75 mg NOW STAT PO 09/11/17 15:29 09/11/17 15:30 DC 09/11/17 15:33 75 MG ED Course 1358: Ordered Tylenol tab 650 mg PO. 1404: Past medical records reviewed. The patient was evaluated in room B10. A complete history and physical examination was performed. 1407: Ordered Duoneb 3 ml INH. 1459: Upon reevaluation, the patient appeared to have improvement of her symptoms. I discussed findings with her. She verbalized agreement of the treatment plan. The patient was discharged home. 1517: Ordered Albuterol/Ipratropium 2 puffs INH. 1529: Ordered Tamiflu Cap 75mg PO Medical Decision DDx: influenza, other viral illness, pneumonia, urinary tract infection, metabolic abnormality, medication effect, cellulitis, meningitis, intra-abdominal source. This pt was evaluated and appeared to be in no distress. Pt was given po Tylenol and a duoneb Tx. Influenza swab is positive for influenza A. Pt was given po Tamiflu. Pt was feeling improved. She felt the duoneb helped more than her albuterol alone. Pt was d/c with Rx for tamiflu and given a combivent inhaler. She will f.u with PCP and return to the ED for worsening of symptoms or any medical concerns. Medication Reconcilliation Current Medication List: was personally reviewed by me Blood Pressure Screening Patient's blood pressure: Normal blood pressure Blood pressure disposition: Did not require urgent referral Impression Primary Impression: Influenza Scribe Attestation The scribe's documentation has been prepared under my direction and personally reviewed by me in its entirety. I confirm that the note above accurately reflects all work, treatment, procedures, and medical decision making performed by me. Departure Information Dispostion Home / Self-Care Prescriptions Oseltamivir (Tamiflu) 75 Mg Cap 75 MG PO BID, #10 CAP Prov: Jazmyn Palma M.D. 09/11/17 Referrals Melissa Kolb D.O. (PCP) Forms HOME CARE DOCUMENTATION FORM, IMPORTANT VISIT INFORMATION Patient Instructions My [facility] Additional Instructions Diagnosis: Influenza Tamiflu 75 mg twice daily for 5 days. Combivent inhaler 2 puffs every 4-6 hours as needed for wheezing or cough. Tylenol 650 mg every 6 hours as needed for pain or fever. Ibuprofen 600 mg every 6 hours as needed for pain or fever. Drink plenty of clear fluids. Follow-up with your physician this week for reevaluation. Return to the ER for worsening of symptoms or any medical concerns.
[2017-09-11 14:47] LABS: INFLUENZA B ANTIGEN Neg for Influ B (NEG)
[2017-09-11] MEDS ORDERED: IPRATROPIUM BROMIDE/ALBUTEROL respimat INH INH STA (15:17)
[2017-09-11] MEDS ORDERED: OSEL75CA12 PO (15:17)
[2017-09-11 15:20] VITALS: BP 114/67; PULSE 112; O2SAT 93
[2017-09-11] MEDS ORDERED: OSELTAMIVIR PHOSPHATE 75 MG CAP PO STA (15:29)
[2017-09-11 15:39] VITALS: TEMP 38.2
== END 2017-09-11 15:35 | disposition home or self-care (01) ==
LOC: C.EDB 13:32
DX: J11.1 Influenza due to unidentified influenza virus with other respiratory manifestations (principal); N83.209 Unspecified ovarian cyst, unspecified side; Z79.3 Long term (current) use of hormonal contraceptives; J45.909 Unspecified asthma, uncomplicated; E78.5 Hyperlipidemia, unspecified; K21.9 Gastro-esophageal reflux disease without esophagitis; Z87.442 Personal history of urinary calculi; N32.81 Overactive bladder; F43.10 Post-traumatic stress disorder, unspecified; Z90.49 Acquired absence of other specified parts of digestive tract; Z79.899 Other long term (current) drug therapy; Z83.3 Family history of diabetes mellitus; Z80.9 Family history of malignant neoplasm, unspecified; Z82.0 Family history of epilepsy and other diseases of the nervous system

== ENCOUNTER 2017-09-19 19:20 | Emergency (ER) | payer OTHER ==
[~2017-09-19] VITALS: Ht 170.2 cm; Wt 101.2 kg
[~2017-09-19 19:20] MED LIST changes: +OSEL75CA12 PO
[2017-09-19 19:28] VITALS: TEMP 37; Ht 170.2 cm; Wt 101.2 kg
[2017-09-19] MEDS ORDERED: ONDANSETRON INJ 2 MG/ML 2 ML VIAL IV STA (21:17)
[2017-09-19] MEDS ORDERED: SODIUM CHLORIDE 0.9% 1000ML 1,000 ML IV STA (21:17)
[2017-09-19] MEDS ORDERED: ACETAMINOPHEN IV 100 ML IV STA (21:17)
[2017-09-19] MEDS ORDERED: OPTIRAY 320 IV PRN (21:30)
[2017-09-19 21:47] LABS: BASO % 0.1 %; BASO ABS # 0.01 K/uL (0-0.2); EOS % 1.3 %; EOS ABS # 0.12 K/uL (0-0.5); HEMATOCRIT 43.2 % (37-47); HEMOGLOBIN 14.5 g/dL (12.0-16.0); IG# 0.02 K/uL (0.00-0.02); LYMPH ABS # 2.05 K/uL (1.2-3.4); MEAN CORPUSCULAR HEMOGLOBIN 30.2 pg (25-34); MEAN CORPUSCULAR HGB CONC 33.6 g/dl (32-36); MEAN PLATELET VOLUME 9.7 fL (7.4-10.4); MONO % 9.9 %; MONO ABS # 0.92 K/uL (0.11-0.59); NEUT % 66.5 %; NEUT ABS # 6.21 K/uL (1.4-6.5); PLATELET COUNT 267 K/uL (130-400); RED CELL DISTRIBUTION WIDTH CV 13.4 % (11.5-14.5); RED CELL DISTRIBUTION WIDTH SD 43.8 fL (36.4-46.3); WHITE BLOOD COUNT 9.33 K/uL (4.8-10.8)
[2017-09-19 22:05] LABS: ALBUMIN 3.6 gm/dl (3.4-5.0); CALCIUM 9.2 mg/dl (8.5-10.1); CREATININE 0.74 mg/dl (0.60-1.20); POTASSIUM 3.5 mmol/L (3.5-5.1)
--- NOTE | 2017-09-19 22:05 | EMERGENCY ROOM VISIT NOTE ---
History First contact with patient: 21:03 Chief Complaint: ABDOMINAL PAIN Stated Complaint: ABDOMINAL PAIN VOMITTING NO PERIOD FOR 2 MONTHS Nursing Triage Summary: pt states abdominal pain, states unable to keep food or fluids down, nausea with vomiting. Pt states pain on palpation RLQ History of Present Illness The patient is a 22 year old female who presents to the Emergency Room with complaints of bilateral lower abdominal pain that started yesterday. She states the pain was initially intermittent, but became more severe today and has been constant for the past 2 hours. She has had associated nausea and vomiting with the pain, and states she has been unable to keep down any food or fluids today because of this. She reports her pain is more severe on the right side. She reports a history of bilateral multiple ovarian cysts, states she has required surgical removal of cyst twice in the past, and also reports that she has not had a period for 2 months. She states that she did take a urine test at home this morning that was reportedly negative. She spoke and nurse at with her gynecology office today, and was encouraged to seek treatment at the emergency department today. She reports some chills, but denies any known fevers, denies any headaches, neck pain, chest pain, shortness of breath, cough, dizziness or syncope, back pain, dysuria or urinary frequency , abnormal vaginal discharge or vaginal bleeding, or rash. Review of Systems A complete 10 point review of systems was reviewed with the patient with pertinent positives and negatives as per history of present illness. All else were negative. Past Medical/Surgical History Medical Problems: (1) Asthma (2) Dyslipidemia (3) GERD (gastroesophageal reflux disease) (4) Kidney stone (5) OAB (overactive bladder) (6) Ovarian cyst (7) PTSD (post-traumatic stress disorder) (8) Seizures (9) Sepsis (10) Vaginal delivery Surgical Problems: (1) H/O colonoscopy (2) H/O esophagogastroduodenoscopy (3) H/O foot surgery (4) S/P laparoscopic cholecystectomy (5) S/P removal of ovarian cyst (6) Status post Mohs surgery Family History Diabetes mellitus FATHER GRANDMOTHER FH: cancer FATHER FH: gallbladder disease FH: heart disease FH: seizures MOTHER Social History Smoking Status: Current Every Day Smoker Alcohol Use: none Drug Use: none Marital Status: in relationship Housing Status: lives with family Occupation Status: unemployed Current/Historical Medications Scheduled Control Pills ( Control Pills), 1 TAB PO QAM Folic Acid (Folvite), 3 MG PO QAM Lamotrigine (Lamictal), 200 MG PO BID Levetiracetam (Keppra), 750 MG PO BID Levothyroxine Sodium (Levothyroxine Sodium), 50 MCG PO DAILY Metoprolol Succinate (Metoprolol Succinate ER), 25 MG PO DAILY Nortriptyline (Pamelor), 25 MG PO HS Omeprazole (Prilosec), 40 MG PO DAILY Scheduled PRN Acetaminophen (Tylenol), 1,000 MG PO Q6H PRN for Headache Albuterol Hfa (Ventolin Hfa), 2 PUFFS INH UD PRN for Asthma Symptoms Albuterol Sulf (Albuterol Sulfate), 2.5 MG NEB Q4H PRN for Shortness of Breath Allergies Reviewed in chart Physical Exam Vital Signs Date Time Temp Pulse Resp B/P (MAP) Pulse Ox O2 Delivery O2 Flow Rate FiO2 09/19/17 21:58 95 16 111/80 98 Room Air 09/19/17 21:53 94 09/19/17 19:28 37.0 110 18 140/77 97 Room Air Physical Exam CONSTITUTIONAL: Pleasant and cooperative. No acute distress. Mildly dehydrated , but otherwise well appearing and well nourished. HEENT: Normocephalic, atraumatic. Pupils equal, round and reactive to light, EOMI. TMs normal. Pharynx normal. Tacky mucous membranes. NECK: Supple, full active range of motion without discomfort. RESPIRATORY: Clear to auscultation bilaterally with no wheezing, crackles, rhonchi or stridor. Equal expansion bilaterally. CARDIOVASCULAR: Regular rate and rhythm with no murmurs, rubs or gallops. Normal peripheral perfusion. No edema. GASTROINTESTINAL: Soft, moderately tender in the bilateral lower quadrants, most tender in the right lower quadrant. No rebound tenderness or guarding. Nondistended, obese. No CVA tenderness. No palpable masses or HSM. Bowel sounds present in all quadrants. MUSCULOSKELETAL: Full range of motion of all joints without discomfort. INTEGUMENTARY: No rash or other significant dermatologic conditions noted. NEUROLOGIC: Alert and oriented X 4 with normal affect.. Normal strength and sensation in all 4 extremities. No focal neurologic deficits noted. Normal speech, normal gait observed. Medical Decision & Procedures ER Provider Diagnostic Interpretation: CT ABD/PELVIS IV CONTRAST ONLY CLINICAL HISTORY: Right lower quadrant abdominal pain COMPARISON STUDY: 04/17/2017 TECHNIQUE: Following the IV administration of 94 mL of Optiray-320, CT scan of the abdomen and pelvis was performed from the lung bases to the proximal femurs. Images are reviewed in the axial, sagittal, and coronal planes. IV contrast was administered without complication. A dose lowering technique was utilized adhering to the principles of ALARA. CT DOSE: 905.94 mGy.cm FINDINGS: Lower chest: There is right middle lobe atelectasis/consolidation. There are patchy bibasilar airspace opacities atelectatic versus inflammatory. Liver: The contrast-enhanced liver is normal in size, contour, and attenuation. There is no intrahepatic biliary ductal dilatation. The hepatic veins and portal veins are patent. Gallbladder: Surgically absent Spleen: Normal in size and attenuation. Pancreas: Unremarkable. Adrenal glands: Unremarkable. Kidneys: There is symmetric renal cortical enhancement. The kidneys are normal in size without hydronephrosis. Bowel: There are no transition zones indicate bowel obstruction. There is no evidence of acute diverticulitis. There is no evidence of acute appendicitis. Peritoneum: There is no intraperitoneal free air or abdominal ascites. Vasculature: The abdominal aorta is normal in course and caliber. Adenopathy: None. Pelvic viscera: The bladder, and pelvic viscera are unremarkable. Skeletal structures: No destructive osseous lesions are seen. IMPRESSION: 1. No evidence of bowel obstruction. 2. No evidence of acute diverticulitis. No evidence of acute appendicitis 3. Right middle lobe atelectasis/consolidation and patchy bibasal airspace opacities. Clinical correlation in regards to a pneumonitis is recommended. Laboratory Results 09/19/17 21:35 Red Blood Count 4.80, Mean Corpuscular Volume 90.0, Mean Corpuscular Hemoglobin 30.2, Mean Corpuscular Hemoglobin Concent 33.6, Mean Platelet Volume 9.7, Neutrophils (%) (Auto) 66.5, Lymphocytes (%) (Auto) 22.0, Monocytes (%) (Auto) 9.9, Eosinophils (%) (Auto) 1.3, Basophils (%) (Auto) 0.1, Neutrophils # (Auto) 6.21, Lymphocytes # (Auto) 2.05, Monocytes # (Auto) 0.92, Eosinophils # (Auto) 0.12, Basophils # (Auto) 0.01 09/19/17 21:35 Test 09/19/17 21:35 White Blood Count 9.33 K/uL (4.8-10.8) Red Blood Count 4.80 M/uL (4.2-5.4) Hemoglobin 14.5 g/dL (12.0-16.0) Hematocrit 43.2 % (37-47) Mean Corpuscular Volume 90.0 fL (80-100) Mean Corpuscular Hemoglobin 30.2 pg (25-34) Mean Corpuscular Hemoglobin Concent 33.6 g/dl (32-36) Platelet Count 267 K/uL (130-400) Mean Platelet Volume 9.7 fL (7.4-10.4) Neutrophils (%) (Auto) 66.5 % Lymphocytes (%) (Auto) 22.0 % Monocytes (%) (Auto) 9.9 % Eosinophils (%) (Auto) 1.3 % Basophils (%) (Auto) 0.1 % Neutrophils # (Auto) 6.21 K/uL (1.4-6.5) Lymphocytes # (Auto) 2.05 K/uL (1.2-3.4) Monocytes # (Auto) 0.92 K/uL (0.11-0.59) Eosinophils # (Auto) 0.12 K/uL (0-0.5) Basophils # (Auto) 0.01 K/uL (0-0.2) RDW Standard Deviation 43.8 fL (36.4-46.3) RDW Coefficient of Variation 13.4 % (11.5-14.5) Immature Granulocyte % (Auto) 0.2 % Immature Granulocyte # (Auto) 0.02 K/uL (0.00-0.02) Urine Color DK YELLOW Urine Appearance CLEAR (CLEAR) Urine pH 6.0 (4.5-7.5) Urine Specific [place] 1.021 (1.000-1.030) Urine Protein NEG (NEG) Urine Glucose (UA) NEG (NEG) Urine Ketones NEG (NEG) Urine Occult Blood TRACE (NEG) Urine Nitrite NEG (NEG) Urine Bilirubin NEG (NEG) Urine Urobilinogen NEG (NEG) Urine Leukocyte Esterase NEG (NEG) Urine WBC (Auto) 1-5 /hpf (0-5) Urine RBC (Auto) 5-10 /hpf (0-4) Urine Hyaline Casts (Auto) 1-5 /lpf (0-5) Urine Epithelial Cells (Auto) >30 /lpf (0-5) Urine Bacteria (Auto) NEG (NEG) Urine Test NEG (NEG) Anion Gap 9.0 mmol/L (3-11) Est Creatinine Clear Calc Drug Dose 145.8 ml/min Estimated GFR () 133.3 Estimated GFR (Non- 115.0 BUN/Creatinine Ratio 9.8 (10-20) Calcium Level 9.2 mg/dl (8.5-10.1) Total Bilirubin 0.6 mg/dl (0.2-1) Direct Bilirubin 0.1 mg/dl (0-0.2) Aspartate Amino Transf (AST/SGOT) 9 U/L (15-37) Alanine Aminotransferase (ALT/SGPT) 21 U/L (12-78) Alkaline Phosphatase 72 U/L (45-117) Total Protein 8.1 gm/dl (6.4-8.2) Albumin 3.6 gm/dl (3.4-5.0) Lipase 84 U/L (73-393) Medications Administered Medications (Trade) Dose Ordered Sig/Miroslava Route Start Time Stop Time Status Last Admin Dose Admin Sodium Chloride 1,000 ml @ 999 mls/hr Q1H1M STAT IV 09/19/17 21:17 09/19/17 22:17 DC 09/19/17 21:56 999 MLS/HR Ondansetron HCl (Zofran Inj) 4 mg NOW STAT IV 09/19/17 21:17 09/19/17 21:22 DC 09/19/17 21:57 4 MG Acetaminophen 100 ml @ 400 mls/hr NOW STAT IV 09/19/17 21:17 09/19/17 21:31 DC 09/19/17 21:57 400 MLS/HR Medical Decision CC: Patient presenting with complaint of right lower quadrant pain Interpretation of Labs: No leukocytosis, no anemia, no significant electrolyte abnormalities, normal renal function, normal liver enzymes and lipase. UA negative for infection, urine negative. Differential Diagnosis: Includes, but not limited to UTI, pyelonephritis, ovarian cyst, ovarian torsion, ectopic , appendicitis, diverticulitis, gastroenteritis, endometriosis, dehydration, among others. Medication Reconciliation: I attest that I have personally reviewed the patient' s current medication list. Initial vital signs review: I reviewed the patient's vital signs and interpret them as follows: T: Afebrile; BP: Hypertensive; HR: Tachycardic; RR: Within normal limits; Pulse Ox: Within normal limits on room air. Blood pressure screening: The patient was found to have an elevated blood pressure and was referred to their primary doctor for recheck and further treatment. Summary: Patient was evaluated at bedside, history and physical exam performed. Patient is alert and oriented, in no acute distress but does appear uncomfortable throughout exam, resting, in the stretcher. Patient has diffuse tenderness across the lower abdomen, most tender in the right lower quadrant. Given her history of known ovarian cysts and report of sudden worsening pain 2 hours ago, I am most concerned for ovarian torsion. Appendicitis is also a consideration given the right lower quadrant tenderness. Orders were placed at bedside for labs, UA and urine , IV fluids for hydration, IV Tylenol for pain, pelvic ultrasound to evaluate for ovarian torsion, CT abdomen/pelvis to evaluate for appendicitis and other abdominal pathology. Patient discussed with Dr. Melendez, who agrees with my assessment and plan. Labs reviewed as above, no significant abnormalities. She is not . CT of the abdomen/pelvis reviewed, no acute abnormalities, specifically no appendicitis. Pelvic ultrasound results pending. Patient reassessed multiple times throughout ED stay, she reports her pain is somewhat improved after IV Tylenol. Her tachycardia is downtrending with IV fluids. She remains afebrile. Patient was signed out to Nila Smith PA-C, at change of shift, pending ultrasound results. Impression Primary Impression: RIGHT LOWER QUADRANT PAIN Departure Information Dispostion Still a Patient Condition GOOD Referrals Melissa Kolb D.O. (PCP) Patient Instructions ED Abdominal Pain Unkn Cause, [facility]
[2017-09-19 22:08] LABS: TOTAL PROTEIN 8.1 gm/dl (6.4-8.2)
--- NOTE | 2017-09-19 22:57 | DIAGNOSTIC IMAGING REPORT ---
CT ABD/PELVIS IV CONTRAST ONLY CLINICAL HISTORY: Right lower quadrant abdominal pain COMPARISON STUDY: 04/17/2017 TECHNIQUE: Following the IV administration of 94 mL of Optiray-320, CT scan of the abdomen and pelvis was performed from the lung bases to the proximal femurs. Images are reviewed in the axial, sagittal, and coronal planes. IV contrast was administered without complication. A dose lowering technique was utilized adhering to the principles of ALARA. CT DOSE: 905.94 mGy.cm FINDINGS: Lower chest: There is right middle lobe atelectasis/consolidation. There are patchy bibasilar airspace opacities atelectatic versus inflammatory. Liver: The contrast-enhanced liver is normal in size, contour, and attenuation. There is no intrahepatic biliary ductal dilatation. The hepatic veins and portal veins are patent. Gallbladder: Surgically absent Spleen: Normal in size and attenuation. Pancreas: Unremarkable. Adrenal glands: Unremarkable. Kidneys: There is symmetric renal cortical enhancement. The kidneys are normal in size without hydronephrosis. Bowel: There are no transition zones indicate bowel obstruction. There is no evidence of acute diverticulitis. There is no evidence of acute appendicitis. Peritoneum: There is no intraperitoneal free air or abdominal ascites. Vasculature: The abdominal aorta is normal in course and caliber. Adenopathy: None. Pelvic viscera: The bladder, and pelvic viscera are unremarkable. Skeletal structures: No destructive osseous lesions are seen. IMPRESSION: 1. No evidence of bowel obstruction. 2. No evidence of acute diverticulitis. No evidence of acute appendicitis 3. Right middle lobe atelectasis/consolidation and patchy bibasal airspace opacities. Clinical correlation in regards to a pneumonitis is recommended. Electronically signed by: Alli Lopez M.D. 09/19/2017 10:56 PM Dictated Date/Time: 09/19/2017 10:52 PM
[2017-09-20 00:58] VITALS: BP 101/73; PULSE 90; O2SAT 97
--- NOTE | 2017-09-20 06:22 | EMERGENCY ROOM VISIT NOTE ---
ED Visit Note Care of this patient was signed out to me by Iris RAUSCH at change of shift pending ultrasound results. Please see her dictation for HPI, PE, and full ED course. Ultrasound was read by [facility], results below. No evidence of ovarian cysts or torsion. Discharge instructions were discussed with the patient and she was discharged home in good condition. US PELVIC/ENDOVAG: Uterus and endometrium are unremarkable. Ovaries are unremarkable. No torsion or masses. No free fluid within the pelvis. Radiologist: Binh Mcgrath MD
--- NOTE | 2017-09-20 06:57 | DIAGNOSTIC IMAGING REPORT ---
PELVIC COMPLETE NON OB CLINICAL HISTORY: RLQ/pelvic pain, hx ovarian cysts, eval torsion COMPARISON STUDY: 08/28/2017 FINDINGS: The uterus measured 7.8 cm at maximum.. The endometrial stripe measured 3 mm.. The right ovary measured 2.9 cm at maximum with normal vascular flow. The left ovary measured 3.3 cm with normal vascular flow. There is no ultrasonographic evidence of ovarian torsion. It should be noted that ovarian torsion can be present with normal Doppler ultrasonographic findings. There was no evidence of pathologic free pelvic fluid. IMPRESSION: 1. Negative pelvic ultrasound. 2. Very small subcentimeter bilateral ovarian follicular cysts. 3. Normal vascular flow to the ovaries. The above report was generated using voice recognition software. It may contain grammatical, syntax or spelling errors. Electronically signed by: Blaise Oakes M.D. 09/20/2017 6:56 AM Dictated Date/Time: 09/20/2017 6:55 AM
== END 2017-09-20 00:59 | disposition home or self-care (01) ==
LOC: C.EDB 19:21
DX: R10.31 Right lower quadrant pain (principal); R11.2 Nausea with vomiting, unspecified; J45.909 Unspecified asthma, uncomplicated; K21.9 Gastro-esophageal reflux disease without esophagitis; F43.10 Post-traumatic stress disorder, unspecified; R56.9 Unspecified convulsions; F17.200 Nicotine dependence, unspecified, uncomplicated; Z79.3 Long term (current) use of hormonal contraceptives; Z83.3 Family history of diabetes mellitus; Z80.9 Family history of malignant neoplasm, unspecified; Z83.79 Family history of other diseases of the digestive system; Z82.49 Family history of ischemic heart disease and other diseases of the circulatory system; Z82.0 Family history of epilepsy and other diseases of the nervous system

== ENCOUNTER 2017-09-24 19:45 | Inpatient (IN) | payer OTHER ==
[~2017-09-24] VITALS: Ht 170.2 cm; Wt 102.0 kg
[~2017-09-24 19:45] MED LIST changes: -OSEL75CA12 PO
[2017-09-24] MEDS ORDERED: SODIUM CHLORIDE 0.9% 1000ML 1,000 ML IV STA (19:58)
[2017-09-24] MEDS ORDERED: CEFEPIME IV 2,000 MG in DEXTROSE 5% 100ML 100 ML IV STA (19:58)
[2017-09-24 20:12] LABS: BASO % 0.5 %; BASO ABS # 0.04 K/uL (0-0.2); EOS % 2.5 %; HEMATOCRIT 40.5 % (37-47); HEMOGLOBIN 13.8 g/dL (12.0-16.0); IG# 0.02 K/uL (0.00-0.02); MEAN CELL VOLUME 90.2 fL (80-100); MEAN CORPUSCULAR HEMOGLOBIN 30.7 pg (25-34); MEAN CORPUSCULAR HGB CONC 34.1 g/dl (32-36); MEAN PLATELET VOLUME 9.4 fL (7.4-10.4); MONO % 10.9 %; MONO ABS # 0.87 K/uL (0.11-0.59); NEUT % 60.9 %; NEUT ABS # 4.88 K/uL (1.4-6.5); PLATELET COUNT 341 K/uL (130-400); RED CELL DISTRIBUTION WIDTH CV 13.6 % (11.5-14.5); RED CELL DISTRIBUTION WIDTH SD 44.6 fL (36.4-46.3); WHITE BLOOD COUNT 8.01 K/uL (4.8-10.8)
[2017-09-24] MEDS ORDERED: OPTIRAY 320 IV PRN (20:15)
[2017-09-24 20:23] LABS: PTT PATIENT 28.7 SECONDS (21.0-31.0)
[2017-09-24 20:25] LABS: ALBUMIN 3.2 gm/dl (3.4-5.0); ALT/SGPT 17 U/L (12-78); AST/SGOT 9 U/L (15-37); BLOOD UREA NITROGEN 9 mg/dl (7-18); CALCIUM 8.8 mg/dl (8.5-10.1); CARBON DIOXIDE 26 mmol/L (21-32); CREATININE 0.74 mg/dl (0.60-1.20); GLUCOSE 84 mg/dl (70-99); POTASSIUM 3.7 mmol/L (3.5-5.1); SODIUM 138 mmol/L (136-145)
[2017-09-24 20:36] LABS: ALKALINE PHOSPHATASE 73 U/L (45-117); TOTAL PROTEIN 7.8 gm/dl (6.4-8.2)
--- NOTE | 2017-09-24 20:45 | EMERGENCY ROOM VISIT NOTE ---
History Report prepared by Santosh: Aramis Torres Under the Supervision of: Dr. Ata Briones M.D. First contact with patient: 19:52 Chief Complaint: CHEST PAIN Stated Complaint: CHEST PAIN History of Present Illness The patient is a 22 year old female who presents to the Emergency Room with complaints of intermittent tachycardia that began yesterday. The patient states that she has been experiencing congestion and has been coughing up green mucous for two weeks. She states that she was diagnosed with influenza a few weeks ago , she seemed to recover. The patient states that she was experiencing shortness of breath and chest pains yesterday, which caused her to report to the [place] ED. She reports that her heart rate was in the 140s when she was in the ED. The patient states that she was diagnosed with pneumonia and was sent home on Levaquin. She states that she has been taking her medication and has been using her nebulizer and inhaler without any relief of symptoms. The patient states her symptoms are worsened today despite using her treatments and drinking fluids. She reports that she noticed her heart rate was in the 130s today, which caused her to call her sugar reprocess operator head, Dr. Mgcregor. The patient states that she typically sees a sugar reprocess operator head for her history of tachycardia. She reports that her tachycardia is worsened upon standing up. The patient states that her heart rate was increased the last time she had pneumonia in July. She denies experiencing a fever. The patient reports a history of asthma, which she has taken steroids for in the past, and bilateral blood clots in her legs. Source of History: patient Onset: yesterday Position: other (global) Quality: other (130-140) Timing: intermittent Associated Symptoms: + cough, + chest pain, + SOB, No fevers Review of Systems See HPI for pertinent positives & negatives. A total of 10 systems reviewed and were otherwise negative. Past Medical & Surgical Medical Problems: (1) Acanthosis nigricans, acquired (2) Asthma (3) Dyslipidemia (4) Flu (5) GERD (gastroesophageal reflux disease) (6) Hospice care (7) Hypothyroidism (8) Inappropriate sinus tachycardia (9) Kidney stone (10) OAB (overactive bladder) (11) Ovarian cyst (12) PTSD (post-traumatic stress disorder) (13) Seizures (14) Sepsis (15) Vaginal delivery Surgical Problems: (1) H/O colonoscopy (2) H/O esophagogastroduodenoscopy (3) H/O foot surgery (4) S/P laparoscopic cholecystectomy (5) S/P removal of ovarian cyst (6) Status post Mohs surgery Family History Diabetes mellitus FATHER GRANDMOTHER FH: cancer FATHER FH: gallbladder disease FH: heart disease FH: seizures MOTHER Social History Smoking Status: Current Every Day Smoker Alcohol Use: none Drug Use: none Marital Status: in relationship Housing Status: lives with family Occupation Status: unemployed Current/Historical Medications Scheduled Control Pills ( Control Pills), 1 TAB PO QAM Folic Acid (Folvite), 3 MG PO QAM Lamotrigine (Lamictal), 200 MG PO BID Levetiracetam (Keppra), 750 MG PO BID Levothyroxine Sodium (Levothyroxine Sodium), 50 MCG PO DAILY Metoprolol Succinate (Metoprolol Succinate ER), 25 MG PO DAILY Nortriptyline (Pamelor), 25 MG PO HS Omeprazole (Prilosec), 40 MG PO DAILY Scheduled PRN Acetaminophen (Tylenol), 1,000 MG PO Q6H PRN for Headache Albuterol Hfa (Ventolin Hfa), 2 PUFFS INH UD PRN for Asthma Symptoms Albuterol Sulf (Albuterol Sulfate), 2.5 MG NEB Q4H PRN for Shortness of Breath Allergies Coded Allergies: Hydromorphone (Verified Allergy, Severe, Respirations stopped., 09/19/17) Amoxicillin (Verified Allergy, Intermediate, RASH, 09/19/17) Morphine (Verified Allergy, Intermediate, HIVES, 09/19/17) Oxycodone (Verified Allergy, Intermediate, Hives, 09/19/17) Adhesives (Verified Adverse Reaction, Mild, RASH, 09/19/17) Physical Exam Vital Signs Date Time Temp Pulse Resp B/P (MAP) Pulse Ox O2 Delivery O2 Flow Rate FiO2 09/24/17 20:58 95 16 126/68 97 Room Air 09/24/17 20:33 106 09/24/17 19:56 96 Room Air 09/24/17 19:56 97 Room Air 09/24/17 19:47 36.8 122 16 143/87 94 Room Air Physical Exam GENERAL: Patient is in no acute distress. HEENT: No acute trauma, normocephalic atraumatic, mucous membranes dry, no nasal congestion, no scleral icterus. NECK: No stridor, no adenopathy, no meningismus, trachea is midline. LUNGS: Scattered wheezing. Somewhat diminished breath sounds but equal bilaterally. HEART: Tachycardic with a regular rhythm. No murmurs. ABDOMEN: Soft, nontender, bowel sounds positive, no hernias, no peritonitis. EXTREMITIES: No cyanosis or edema, full range of motion of all the joints without pain or difficulty, no signs for acute trauma. NEUROLOGIC: Oriented x 3, no acute motor or sensory deficits, no focal weakness. SKIN: No rash, no jaundice, no diaphoresis. Medical Decision & Procedures ER Provider Diagnostic Interpretation: Radiology results as stated below per my review and radiologist interpretation: (CHEST FOR PE) ANGIO WITH CLINICAL HISTORY: 22 years-old Female presenting with coughing, chest pain, clinical concern for pulmonary embolus. TECHNIQUE: Multidetector CT angiography of the chest was performed after administration of intravenous contrast. 3-D volumetric and/or maximum intensity projection (MIP) images were subsequently reconstructed for review. IV contrast: 86 mL of Optiray 320. A dose lowering technique was used consistent with the principles of ALARA (as low as reasonably achievable). COMPARISON: 07/29/2017. CT DOSE (mGy.cm): The estimated cumulative dose is 653.93 mGy.cm. FINDINGS: Wire Turning Machine Operator topogram: Unremarkable. Pulmonary vasculature: The study is adequate for assessment of the pulmonary vascular tree. No filling defect within the pulmonary arteries to suggest embolus. Main pulmonary artery is not enlarged. No flattening of the interventricular septum. No intracardiac filling defect. No reflux of contrast into the hepatic veins. Remaining chest: On soft tissue windows, normal thyroid and thoracic inlet. Enlarged hilar lymph nodes, right greater than left. Normal aorta. Normal heart size. No pericardial or pleural effusion. Cholecystectomy clips noted. On lung windows, extensive nodular consolidation in the basal segments of the right lower lobe. Less extensive patchy groundglass and solid consolidation in the right middle lobe. Minimal tree-in-bud nodular opacities in the right upper lobe. Bronchial wall thickening in the right lung. The previously seen infiltrate in the left upper lobe on prior exam have resolved. Tree-in-bud opacities are evident in the posterior basal left lower lobe, which are new from prior central airways patent. On bone windows, normal osseous structures. IMPRESSION: 1. No evidence of pulmonary embolus. 2. Interval development of extensive nodular consolidation involving the right lower lobe and to a lesser extent the right middle and upper lobes and a limited portion of the posterior basal left lower lobe. This is consistent with multifocal pneumonia with endobronchial spread of infection/infectious bronchiolitis. 3. Resolution of previous left upper lobe infiltrate. Electronically signed by: Jose Braden M.D. 09/24/2017 9:23 PM Dictated Date/Time: 09/24/2017 9:17 PM Laboratory Results 09/24/17 19:58 Red Blood Count 4.49, Mean Corpuscular Volume 90.2, Mean Corpuscular Hemoglobin 30.7, Mean Corpuscular Hemoglobin Concent 34.1, Mean Platelet Volume 9.4, Neutrophils (%) (Auto) 60.9, Lymphocytes (%) (Auto) 25.0, Monocytes (%) (Auto) 10.9, Eosinophils (%) (Auto) 2.5, Basophils (%) (Auto) 0.5, Neutrophils # (Auto ) 4.88, Lymphocytes # (Auto) 2.00, Monocytes # (Auto) 0.87, Eosinophils # (Auto ) 0.20, Basophils # (Auto) 0.04 09/24/17 19:58 Test 09/24/17 19:58 09/24/17 20:08 09/24/17 20:13 09/24/17 20:47 White Blood Count 8.01 K/uL (4.8-10.8) Red Blood Count 4.49 M/uL (4.2-5.4) Hemoglobin 13.8 g/dL (12.0-16.0) Hematocrit 40.5 % (37-47) Mean Corpuscular Volume 90.2 fL (80-100) Mean Corpuscular Hemoglobin 30.7 pg (25-34) Mean Corpuscular Hemoglobin Concent 34.1 g/dl (32-36) Platelet Count 341 K/uL (130-400) Mean Platelet Volume 9.4 fL (7.4-10.4) Neutrophils (%) (Auto) 60.9 % Lymphocytes (%) (Auto) 25.0 % Monocytes (%) (Auto) 10.9 % Eosinophils (%) (Auto) 2.5 % Basophils (%) (Auto) 0.5 % Neutrophils # (Auto) 4.88 K/uL (1.4-6.5) Lymphocytes # (Auto) 2.00 K/uL (1.2-3.4) Monocytes # (Auto) 0.87 K/uL (0.11-0.59) Eosinophils # (Auto) 0.20 K/uL (0-0.5) Basophils # (Auto) 0.04 K/uL (0-0.2) RDW Standard Deviation 44.6 fL (36.4-46.3) RDW Coefficient of Variation 13.6 % (11.5-14.5) Immature Granulocyte % (Auto) 0.2 % Immature Granulocyte # (Auto) 0.02 K/uL (0.00-0.02) Prothrombin Time 10.1 SECONDS (9.0-12.0) Prothromb Time International Ratio 1.0 (0.9-1.1) Activated Partial Thromboplast Time 28.7 SECONDS (21.0-31.0) Partial Thromboplastin Ratio 1.1 Anion Gap 8.0 mmol/L (3-11) Est Creatinine Clear Calc Drug Dose 145.9 ml/min Estimated GFR () 133.3 Estimated GFR (Non- 115.0 BUN/Creatinine Ratio 12.2 (10-20) Calcium Level 8.8 mg/dl (8.5-10.1) Magnesium Level 2.0 mg/dl (1.8-2.4) Total Bilirubin 0.2 mg/dl (0.2-1) Aspartate Amino Transf (AST/SGOT) 9 U/L (15-37) Alanine Aminotransferase (ALT/SGPT) 17 U/L (12-78) Alkaline Phosphatase 73 U/L (45-117) Troponin I < 0.015 ng/ml (0-0.045) Total Protein 7.8 gm/dl (6.4-8.2) Albumin 3.2 gm/dl (3.4-5.0) Globulin 4.6 gm/dl (2.5-4.0) Albumin/Globulin Ratio 0.7 (0.9-2) Thyroid Stimulating Hormone (TSH) 1.800 uIu/ml (0.300-4.500) Free Thyroxine 1.12 ng/dl (0.80-1.60) Human Chorionic Gonadotropin, Qual NEG (NEG) Influenza Type A (RT-PCR) POS for Influ A (NEG) Influenza Type B (RT-PCR) Neg for Influ B (NEG) Urine Color YELLOW Urine Appearance CLEAR (CLEAR) Urine pH 6.0 (4.5-7.5) Urine Specific [place] 1.031 (1.000-1.030) Urine Protein NEG (NEG) Urine Glucose (UA) NEG (NEG) Urine Ketones NEG (NEG) Urine Occult Blood 3+ (NEG) Urine Nitrite NEG (NEG) Urine Bilirubin NEG (NEG) Urine Urobilinogen NEG (NEG) Urine Leukocyte Esterase NEG (NEG) Urine WBC (Auto) 1-5 /hpf (0-5) Urine RBC (Auto) >30 /hpf (0-4) Urine Hyaline Casts (Auto) 1-5 /lpf (0-5) Urine Epithelial Cells (Auto) 20-30 /lpf (0-5) Urine Bacteria (Auto) NEG (NEG) Lactic Acid Level 2.2 mmol/L (0.4-2.0) Laboratory results reviewed by me. Medications Administered Medications (Trade) Dose Ordered Sig/Miroslava Route Start Time Stop Time Status Last Admin Dose Admin Sodium Chloride 1,000 ml @ 999 mls/hr Q1H1M STAT IV 09/24/17 19:58 09/24/17 20:58 DC 09/24/17 20:10 999 MLS/HR Cefepime HCl 2000 mg/Dextrose 112.5 ml @ 200 mls/hr ONE STAT IV 09/24/17 19:58 09/24/17 20:31 DC 09/24/17 20:54 200 MLS/HR Oseltamivir Phosphate (Tamiflu Cap) 75 mg NOW STAT PO 09/24/17 21:09 09/24/17 21:11 DC 09/24/17 21:23 75 MG Levalbuterol (Xopenex 1.25MG/ 0.5ML Neb) 1.25 mg NOW STAT INH 09/24/17 21:37 09/24/17 21:38 DC 09/24/17 22:05 1.25 MG Ipratropium [place] (Atrovent 0.02% 0.5MG/2.5ML Neb) 0.5 mg NOW STAT INH 09/24/17 21:37 09/24/17 21:38 DC 2/10/18 22:06 0.5 MG ECG Indication: chest pain Rate (beats per minute): 116 Rhythm: sinus tachycardia Findings: other (No ST elevation, PACs, or PVCs) Change: Patient's electrocardiogram interpreted by me. ED Course 1956: The patient was evaluated in room C05. A complete history and physical exam was performed. 1957: Ordered Cefepime HCl 2000 mg/Dextrose 112.5 ml @ 200 mls/hr IV, Sodium Chloride 1000 ml @ 999 mls/hr IV. 2108: Ordered Tamiflu Cap 75 mg PO. 2136: Ordered Ipratropium [place] 0.5 mg INH, Levalbuterol 1.25 mg INH. 2233: I reevaluated the patient and updated her on her results. I discussed her treatment plan, which she understands and agrees to. The patient will be further evaluated. 2234: I discussed the patient's case with Dr. Stearns, [facility] Hospitalist. She understands the patient's condition and agrees to accept the patient. She asked to have a test order. The patient will be further evaluated. Medical Decision The patient is a 22 year old female who presents to the Emergency Room with complaints of intermittent tachycardia that began yesterday. Differential diagnoses considered include pneumonia, bronchitis, influenza, dehydration, electrolyte imbalance, anemia, failed outpatient treatment, exacerbation of asthma. There is no leukocytosis or concerning anemia. No significant electrolyte abnormalities, kidney failure or hepatitis. Lactic acid level is slightly elevated, this could be consistent with infection and/or dehydration. Blood cultures are pending. EKG shows a sinus tachycardia, no acute ischemia. Cardiac enzyme testing times one is not consistent with acute cardiac injury. The patient appears to be in a euthyroid state. There is no coagulopathy. Urinalysis shows some hematuria, no infection. test is negative. Influenza testing is positive for influenza A. Chest CT does not show PE, pneumonia was seen. The patient received IV saline, a Xopenex Atrovent neb, IV cefepime and oral Tamiflu. The patient has influenza, a flare of asthma, pneumonia. She presents tachycardic and dehydrated. She is failing outpatient treatment. Admission/ observation is warranted. I spoke to the patient and the director case management. The on- call hospitalist was consulted. Medication Reconcilliation Current Medication List: was personally reviewed by me Blood Pressure Screening Patient's blood pressure: Elevated blood pressure Blood pressure disposition: Elevated BP felt to be situational Consults Time Called: 2234 Consulting Physician: Eric Dykes Hospitalist Returned Call: [phone] I discussed the patient's case with Eric Dykes Hospitalist. She understands the patient's condition and agrees to accept the patient. She asked to have a test order. The patient will be further evaluated. Impression Primary Impression: PNA (pneumonia) Additional Impressions: Influenza A Exacerbation of asthma Tachycardia Failure of outpatient treatment Scribe Attestation The scribe's documentation has been prepared under my direction and personally reviewed by me in its entirety. I confirm that the note above accurately reflects all work, treatment, procedures, and medical decision making performed by me. Departure Information Dispostion Being Evaluated By Hospitalist Referrals Melissa Kolb D.O. (PCP) Patient Instructions My [facility] Problem Qualifiers
[2017-09-24 21:07] LABS: INFLUENZA A PCR POS for Influ A (NEG); INFLUENZA B PCR Neg for Influ B (NEG)
[2017-09-24] MEDS ORDERED: OSELTAMIVIR PHOSPHATE 75 MG CAP PO STA (21:09)
--- NOTE | 2017-09-24 21:25 | DIAGNOSTIC IMAGING REPORT ---
(CHEST FOR PE) ANGIO WITH CLINICAL HISTORY: 22 years-old Female presenting with coughing, chest pain, clinical concern for pulmonary embolus. TECHNIQUE: Multidetector CT angiography of the chest was performed after administration of intravenous contrast. 3-D volumetric and/or maximum intensity projection (MIP) images were subsequently reconstructed for review. IV contrast: 86 mL of Optiray 320. A dose lowering technique was used consistent with the principles of ALARA (as low as reasonably achievable). COMPARISON: 07/29/2017. CT DOSE (mGy.cm): The estimated cumulative dose is 653.93 mGy.cm. 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 Pulmonary vasculature: The study is adequate for assessment of the pulmonary vascular tree. No filling defect within the pulmonary arteries to suggest embolus. Main pulmonary artery is not enlarged. No flattening of the interventricular septum. No intracardiac filling defect. No reflux of contrast into the hepatic veins. Remaining chest: On soft tissue windows, normal thyroid and thoracic inlet. Enlarged hilar lymph nodes, right greater than left. Normal aorta. Normal heart size. No pericardial or pleural effusion. Cholecystectomy clips noted. On lung windows, extensive nodular consolidation in the basal segments of the right lower lobe. Less extensive patchy groundglass and solid consolidation in the right middle lobe. Minimal tree-in-bud nodular opacities in the right upper lobe. Bronchial wall thickening in the right lung. The previously seen infiltrate in the left upper lobe on prior exam have resolved. Tree-in-bud opacities are evident in the posterior basal left lower lobe, which are new from prior central airways patent. On bone windows, normal osseous structures. IMPRESSION: 1. No evidence of pulmonary embolus. 2. Interval development of extensive nodular consolidation involving the right lower lobe and to a lesser extent the right middle and upper lobes and a limited portion of the posterior basal left lower lobe. This is consistent with multifocal pneumonia with endobronchial spread of infection/infectious bronchiolitis. 3. Resolution of previous left upper lobe infiltrate. Electronically signed by: Jose Braden M.D. 09/24/2017 9:23 PM Dictated Date/Time: 09/24/2017 9:17 PM
[2017-09-24] MEDS ORDERED: IPRATROPIUM BROMIDE NEB SOLN 0.02% 2.5 ML VIAL INH STA (21:37)
[2017-09-24] MEDS ORDERED: LEVALBUTEROL 1.25MG/0.5ML NEB INH STA (21:37)
[2017-09-24 21:58] VITALS: PULSE 102; O2SAT 96
[2017-09-24] MEDS ORDERED: ACETAMINOPHEN 325 MG TAB PO PRN (22:15)
[2017-09-24] MEDS ORDERED: GLUCOSE 40% GEL 15 GM TUBE PO PRN (22:15)
[2017-09-24] MEDS ORDERED: GLUCAGON FOR INJ 1 MG VIAL SQ PRN (22:15)
[2017-09-24] MEDS ORDERED: DEXTROSE 50% 50 ML SYR IV PRN (22:15)
[2017-09-24] MEDS ORDERED: ONDANSETRON INJ 2 MG/ML 2 ML VIAL IV PRN (22:15)
[2017-09-24] MEDS ORDERED: GLUCOSE 10 TABS/TUBE PO PRN (22:15)
[2017-09-24 22:30] VITALS: BP 148/87; PULSE 103; TEMP 36.7; O2SAT 99; Ht 170.2 cm; Wt 102.0 kg
[2017-09-24] MEDS ORDERED: VANCOMYCIN CONSULT ACTIVE PRN (22:37)
--- NOTE | 2017-09-24 22:43 | History and Physical ---
History & Physical Date & Time of Service: Sep 24, 2017 at 22:30 Chief Complaint: Flu, Pna Primary Care Physician: Melissa Kolb D.O. History of Present Illness Source: patient, clinic records, hospital records 22 yo F smoker with seizure disorder, borderline DMII, obesity and asthma presents with worsening tachycardia that began yesterday. She was found to be flu positive on 09/11 and treated with Tamiflu as outpatient for 5 days, which she completed. She states that her cough persisted, however, and she began becoming more short of breath, losing her voice and felt her heart start racing yesterday. She went to [place] [facility] yesterday and was given Levaquin for pneumonia and has taken two doses, but doesn't feel better. She reports some fever and malaise when initially diagnosed with fever but these have subsided over the past week. She does have a productive cough of greenish sputum, sinus pressure and green drainage from her nose. She has a mild sore throat and reports that she has been staying hydrated but has had two weeks of diarrhea with 1-3 loose stool episodes daily. She has incidentally had no menstrual cycle for two months and just began today so has some mild abdominal discomfort from that but no nausea or vomiting. She is breathing at ease and has no wheezing currently on exam despite no breathing treatment here. She is oxygenating well on room air and speaking in full sentences. In the ER, workup revealed presence of a pneumonia, flu A positive and no PE on CTA. Lactate was elevated to 2/2 but she does not appear septic and was given IVF and cefepime and started on breathing treatments. Past Medical/Surgical History Medical Problems: (1) Acanthosis nigricans, acquired Status: Chronic (2) Asthma Status: Chronic (3) Dyslipidemia Status: Chronic (4) GERD (gastroesophageal reflux disease) Status: Chronic (5) Hypothyroidism Status: Chronic (6) Inappropriate sinus tachycardia Status: Chronic (7) Kidney stone Status: Chronic (8) OAB (overactive bladder) Status: Chronic (9) Ovarian cyst Status: Chronic (10) PTSD (post-traumatic stress disorder) Status: Chronic (11) Seizures Status: Chronic (12) Vaginal delivery Status: Resolved Surgical Problems: (1) H/O colonoscopy Status: Chronic (2) H/O esophagogastroduodenoscopy Status: Chronic (3) H/O foot surgery Status: Chronic (4) S/P laparoscopic cholecystectomy Status: Chronic (5) S/P removal of ovarian cyst Status: Chronic (6) Status post Mohs surgery Status: Chronic Family History Diabetes mellitus FATHER GRANDMOTHER FH: cancer FATHER FH: gallbladder disease FH: heart disease FH: seizures MOTHER Social History Smoking Status: Current Every Day Smoker Smokeless Tobacco Use: Unknown Alcohol Use: socially Drug Use: none Marital Status: single, in relationship Housing status: lives with family Occupational Status: disabled Immunizations History of Influenza Vaccine: Unknown History of Tetanus Vaccine?: Yes Tetanus Immunization Date: Mar 03, 2015 History of Pneumococcal: Yes Pneumococcal Date: Jun 17, 2016 History of Hepatitis B Vaccine: Unknown Multi-Drug Resistant Organisms History of MDRO: No Allergies Coded Allergies: Hydromorphone (Verified Allergy, Severe, Respirations stopped., 09/19/17) Amoxicillin (Verified Allergy, Intermediate, RASH, 09/19/17) Morphine (Verified Allergy, Intermediate, HIVES, 09/19/17) Oxycodone (Verified Allergy, Intermediate, Hives, 09/19/17) Adhesives (Verified Adverse Reaction, Mild, RASH, 09/19/17) Home Medications Scheduled Control Pills ( Control Pills), 1 TAB PO QAM Folic Acid (Folvite), 3 MG PO QAM Lamotrigine (Lamictal), 200 MG PO BID Levetiracetam (Keppra), 750 MG PO BID Levothyroxine Sodium (Levothyroxine Sodium), 50 MCG PO DAILY Metoprolol Succinate (Metoprolol Succinate ER), 25 MG PO DAILY Nortriptyline (Pamelor), 25 MG PO HS Omeprazole (Prilosec), 40 MG PO DAILY Scheduled PRN Acetaminophen (Tylenol), 1,000 MG PO Q6H PRN for Headache Albuterol Hfa (Ventolin Hfa), 2 PUFFS INH UD PRN for Asthma Symptoms Albuterol Sulf (Albuterol Sulfate), 2.5 MG NEB Q4H PRN for Shortness of Breath Review of Systems At least ten systems were reviewed and negative except as indicated in HPI. Physical Exam Vital Signs Date Time Temp Pulse Resp B/P (MAP) Pulse Ox O2 Delivery O2 Flow Rate FiO2 09/24/17 22:10 101 16 122/58 96 Room Air 09/24/17 21:58 102 16 96 Room Air 09/24/17 20:58 95 16 126/68 97 Room Air 09/24/17 20:33 106 09/24/17 19:56 96 Room Air 09/24/17 19:56 97 Room Air 09/24/17 19:47 36.8 122 16 143/87 94 Room Air General Appearance: WD/WN, no apparent distress Head: normocephalic, atraumatic Eyes: normal inspection, PERRL, sclerae normal ENT: hearing grossly normal, pharynx normal Neck: supple, no adenopathy, trachea midline Respiratory/Chest: lungs clear, normal breath sounds, no respiratory distress, no accessory muscle use Cardiovascular: regular rate, rhythm, no edema, no gallop, no JVD, no murmur, normal peripheral pulses Abdomen/GI: normal bowel sounds, soft, no organomegaly, + tenderness (LLQ) Back: normal inspection Extremities/Musculoskelatal: normal inspection, no pedal edema 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/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, no motor/sensory deficits, alert, normal mood/affect, oriented x 3 Skin: normal color, warm/dry Diagnostics Laboratory Results 09/24/17 19:58 Red Blood Count 4.49, Mean Corpuscular Volume 90.2, Mean Corpuscular Hemoglobin 30.7, Mean Corpuscular Hemoglobin Concent 34.1, Mean Platelet Volume 9.4, Neutrophils (%) (Auto) 60.9, Lymphocytes (%) (Auto) 25.0, Monocytes (%) (Auto) 10.9, Eosinophils (%) (Auto) 2.5, Basophils (%) (Auto) 0.5, Neutrophils # (Auto ) 4.88, Lymphocytes # (Auto) 2.00, Monocytes # (Auto) 0.87, Eosinophils # (Auto ) 0.20, Basophils # (Auto) 0.04 09/24/17 19:58 Test 09/24/17 19:58 09/24/17 20:08 09/24/17 20:13 09/24/17 20:47 White Blood Count 8.01 K/uL (4.8-10.8) Red Blood Count 4.49 M/uL (4.2-5.4) Hemoglobin 13.8 g/dL (12.0-16.0) Hematocrit 40.5 % (37-47) Mean Corpuscular Volume 90.2 fL (80-100) Mean Corpuscular Hemoglobin 30.7 pg (25-34) Mean Corpuscular Hemoglobin Concent 34.1 g/dl (32-36) Platelet Count 341 K/uL (130-400) Mean Platelet Volume 9.4 fL (7.4-10.4) Neutrophils (%) (Auto) 60.9 % Lymphocytes (%) (Auto) 25.0 % Monocytes (%) (Auto) 10.9 % Eosinophils (%) (Auto) 2.5 % Basophils (%) (Auto) 0.5 % Neutrophils # (Auto) 4.88 K/uL (1.4-6.5) Lymphocytes # (Auto) 2.00 K/uL (1.2-3.4) Monocytes # (Auto) 0.87 K/uL (0.11-0.59) Eosinophils # (Auto) 0.20 K/uL (0-0.5) Basophils # (Auto) 0.04 K/uL (0-0.2) RDW Standard Deviation 44.6 fL (36.4-46.3) RDW Coefficient of Variation 13.6 % (11.5-14.5) Immature Granulocyte % (Auto) 0.2 % Immature Granulocyte # (Auto) 0.02 K/uL (0.00-0.02) Prothrombin Time 10.1 SECONDS (9.0-12.0) Prothromb Time International Ratio 1.0 (0.9-1.1) Activated Partial Thromboplast Time 28.7 SECONDS (21.0-31.0) Partial Thromboplastin Ratio 1.1 Anion Gap 8.0 mmol/L (3-11) Est Creatinine Clear Calc Drug Dose 145.9 ml/min Estimated GFR () 133.3 Estimated GFR (Non- 115.0 BUN/Creatinine Ratio 12.2 (10-20) Calcium Level 8.8 mg/dl (8.5-10.1) Magnesium Level 2.0 mg/dl (1.8-2.4) Total Bilirubin 0.2 mg/dl (0.2-1) Aspartate Amino Transf (AST/SGOT) 9 U/L (15-37) Alanine Aminotransferase (ALT/SGPT) 17 U/L (12-78) Alkaline Phosphatase 73 U/L (45-117) Troponin I < 0.015 ng/ml (0-0.045) Total Protein 7.8 gm/dl (6.4-8.2) Albumin 3.2 gm/dl (3.4-5.0) Globulin 4.6 gm/dl (2.5-4.0) Albumin/Globulin Ratio 0.7 (0.9-2) Thyroid Stimulating Hormone (TSH) 1.800 uIu/ml (0.300-4.500) Free Thyroxine 1.12 ng/dl (0.80-1.60) Human Chorionic Gonadotropin, Qual NEG (NEG) Influenza Type A (RT-PCR) POS for Influ A (NEG) Influenza Type B (RT-PCR) Neg for Influ B (NEG) Urine Color YELLOW Urine Appearance CLEAR (CLEAR) Urine pH 6.0 (4.5-7.5) Urine Specific [place] 1.031 (1.000-1.030) Urine Protein NEG (NEG) Urine Glucose (UA) NEG (NEG) Urine Ketones NEG (NEG) Urine Occult Blood 3+ (NEG) Urine Nitrite NEG (NEG) Urine Bilirubin NEG (NEG) Urine Urobilinogen NEG (NEG) Urine Leukocyte Esterase NEG (NEG) Urine WBC (Auto) 1-5 /hpf (0-5) Urine RBC (Auto) >30 /hpf (0-4) Urine Hyaline Casts (Auto) 1-5 /lpf (0-5) Urine Epithelial Cells (Auto) 20-30 /lpf (0-5) Urine Bacteria (Auto) NEG (NEG) Lactic Acid Level 2.2 mmol/L (0.4-2.0) Date/Time Source Procedure Growth Status 09/24/17 20:47 Blood Blood Culture Pending Received Results Past 24 Hours Test 09/24/17 19:58 09/24/17 20:08 09/24/17 20:13 09/24/17 20:47 Range/Units White Blood Count 8.01 4.8-10.8 K/uL Red Blood Count 4.49 4.2-5.4 M/uL Hemoglobin 13.8 12.0-16.0 g/dL Hematocrit 40.5 37-47 % Mean Corpuscular Volume 90.2 80-100 fL Mean Corpuscular Hemoglobin 30.7 25-34 pg Mean Corpuscular Hemoglobin Concent 34.1 32-36 g/dl Platelet Count 341 130-400 K/uL Mean Platelet Volume 9.4 7.4-10.4 fL Neutrophils (%) (Auto) 60.9 % Lymphocytes (%) (Auto) 25.0 % Monocytes (%) (Auto) 10.9 % Eosinophils (%) (Auto) 2.5 % Basophils (%) (Auto) 0.5 % Neutrophils # (Auto) 4.88 1.4-6.5 K/uL Lymphocytes # (Auto) 2.00 1.2-3.4 K/uL Monocytes # (Auto) 0.87 0.11-0.59 K/uL Eosinophils # (Auto) 0.20 0-0.5 K/uL Basophils # (Auto) 0.04 0-0.2 K/uL RDW Standard Deviation 44.6 36.4-46.3 fL RDW Coefficient of Variation 13.6 11.5-14.5 % Immature Granulocyte % (Auto) 0.2 % Immature Granulocyte # (Auto) 0.02 0.00-0.02 K/uL Prothrombin Time 10.1 9.0-12.0 SECONDS Prothromb Time International Ratio 1.0 0.9-1.1 Activated Partial Thromboplast Time 28.7 21.0-31.0 SECONDS Partial Thromboplastin Ratio 1.1 Sodium Level 138 136-145 mmol/L Potassium Level 3.7 3.5-5.1 mmol/L Chloride Level 105 98-107 mmol/L Carbon Dioxide Level 26 21-32 mmol/L Anion Gap 8.0 3-11 mmol/L Blood Urea Nitrogen 9 7-18 mg/dl Creatinine 0.74 0.60-1.20 mg/dl Est Creatinine Clear Calc Drug Dose 145.9 ml/min Estimated GFR () 133.3 Estimated GFR (Non- 115.0 BUN/Creatinine Ratio 12.2 10-20 Random Glucose 84 70-99 mg/dl Calcium Level 8.8 8.5-10.1 mg/dl Magnesium Level 2.0 1.8-2.4 mg/dl Total Bilirubin 0.2 0.2-1 mg/dl Aspartate Amino Transf (AST/SGOT) 9 15-37 U/L Alanine Aminotransferase (ALT/SGPT) 17 12-78 U/L Alkaline Phosphatase 73 45-117 U/L Troponin I < 0.015 0-0.045 ng/ml Total Protein 7.8 6.4-8.2 gm/dl Albumin 3.2 3.4-5.0 gm/dl Globulin 4.6 2.5-4.0 gm/dl Albumin/Globulin Ratio 0.7 0.9-2 Thyroid Stimulating Hormone (TSH) 1.800 0.300-4.500 uIu/ml Free Thyroxine 1.12 0.80-1.60 ng/dl Human Chorionic Gonadotropin, Qual NEG NEG Influenza Type A (RT-PCR) POS for Influ A NEG Influenza Type B (RT-PCR) Neg for Influ B NEG Urine Color YELLOW Urine Appearance CLEAR CLEAR Urine pH 6.0 4.5-7.5 Urine Specific [place] 1.031 1.000-1.030 Urine Protein NEG NEG Urine Glucose (UA) NEG NEG Urine Ketones NEG NEG Urine Occult Blood 3+ NEG Urine Nitrite NEG NEG Urine Bilirubin NEG NEG Urine Urobilinogen NEG NEG Urine Leukocyte Esterase NEG NEG Urine WBC (Auto) 1-5 0-5 /hpf Urine RBC (Auto) >30 0-4 /hpf Urine Hyaline Casts (Auto) 1-5 0-5 /lpf Urine Epithelial Cells (Auto) 20-30 0-5 /lpf Urine Bacteria (Auto) NEG NEG Lactic Acid Level 2.2 0.4-2.0 mmol/L Microbiology Results 09/24/17 Blood Culture, Received Pending 09/24/17 Blood Culture, Received Pending Diagnostic Radiology (CHEST FOR PE) ANGIO WITH CLINICAL HISTORY: 22 years-old Female presenting with coughing, chest pain, clinical concern for pulmonary embolus. TECHNIQUE: Multidetector CT angiography of the chest was performed after administration of intravenous contrast. 3-D volumetric and/or maximum intensity projection (MIP) images were subsequently reconstructed for review. IV contrast: 86 mL of Optiray 320. A dose lowering technique was used consistent with the principles of ALARA (as low as reasonably achievable). COMPARISON: 07/29/2017. CT DOSE (mGy.cm): The estimated cumulative dose is 653.93 mGy.cm. 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 Pulmonary vasculature: The study is adequate for assessment of the pulmonary vascular tree. No filling defect within the pulmonary arteries to suggest embolus. Main pulmonary artery is not enlarged. No flattening of the interventricular septum. No intracardiac filling defect. No reflux of contrast into the hepatic veins. Remaining chest: On soft tissue windows, normal thyroid and thoracic inlet. Enlarged hilar lymph nodes, right greater than left. Normal aorta. Normal heart size. No pericardial or pleural effusion. Cholecystectomy clips noted. On lung windows, extensive nodular consolidation in the basal segments of the right lower lobe. Less extensive patchy groundglass and solid consolidation in the right middle lobe. Minimal tree-in-bud nodular opacities in the right upper lobe. Bronchial wall thickening in the right lung. The previously seen infiltrate in the left upper lobe on prior exam have resolved. Tree-in-bud opacities are evident in the posterior basal left lower lobe, which are new from prior central airways patent. On bone windows, normal osseous structures. IMPRESSION: 1. No evidence of pulmonary embolus. 2. Interval development of extensive nodular consolidation involving the right lower lobe and to a lesser extent the right middle and upper lobes and a limited portion of the posterior basal left lower lobe. This is consistent with multifocal pneumonia with endobronchial spread of infection/infectious bronchiolitis. 3. Resolution of previous left upper lobe infiltrate. EKG SR 116 Impression Assessment and Plan 22 yo F presents with pneumonia not improved on outpatient antibiotics. 1. Multifocal pneumonia-a complication of recent flu-cover for CA MRSA with Vanc, Levaquin IV, blood and sputum cultures. Does not appear septic at this time. 2. Asthma-no wheezing on exam, no steroids at this time. Duonebs PRN. Daily peak flow. 3. Seizure disorder-last episode Jul 2017 when ill. Cont AEDs per home regimen 4. Metabolic syndrome-ISS with carb coverage as she reports her sugar was 217 at the ER yesterday. A1C in the morning. AHA diet for now. 5. Hypothyroidism-cont Synthroid, home dose. DVT proph-Lovenox Full Code Dispo-to telemetry. Tam[facility] Stearn[facility] Telemetry Resuscitation Status FULL RESUSCITATION VTE Prophylaxis VTE Risk Assessment Done? Y/N: Yes Risk Level: Moderate Given or contraindicated: Enoxaparin (Lovenox)SQ
[2017-09-24] MEDS: SODIUM CHLORIDE 0.9% 1000ML 1,000 ML IV SCH (22:49)
[2017-09-24] MEDS: LEVOFLOXACIN / D5W 750 MG in PREMIXED IN D5W 150 ML IV SCH (23:04)
[2017-09-24] MEDS: NICOTINE 14 MG/24 HR TDSY TD SCH (23:41)
[2017-09-25] VITALS (10 sets, daily range): BP systolic 106–135; BP diastolic 68–85; PULSE 88–98; TEMP 36.6–37; O2SAT 94–99
[2017-09-25] MEDS ORDERED: VANCOMYCIN INJ 2,500 MG in SODIUM CHLORIDE 0.9% 500ML 500 ML IV SCH ×2
[2017-09-25 03:03] LABS: HEMATOCRIT 37.9 % (37-47); HEMOGLOBIN 12.8 g/dL (12.0-16.0); MEAN CELL VOLUME 90.7 fL (80-100); MEAN CORPUSCULAR HEMOGLOBIN 30.6 pg (25-34); MEAN CORPUSCULAR HGB CONC 33.8 g/dl (32-36); MEAN PLATELET VOLUME 9.3 fL (7.4-10.4); PLATELET COUNT 300 K/uL (130-400); RED CELL DISTRIBUTION WIDTH CV 13.5 % (11.5-14.5); WHITE BLOOD COUNT 9.59 K/uL (4.8-10.8)
[2017-09-25 03:23] LABS: CALCIUM 8.3 mg/dl (8.5-10.1); CREATININE 0.67 mg/dl (0.60-1.20); POTASSIUM 3.6 mmol/L (3.5-5.1)
[2017-09-25] MEDS: SODIUM CHLORIDE 0.9% 1000ML 1,000 ML IV SCH (05:15)
[2017-09-25] MEDS: LEVOTHYROXINE 50 MCG TAB PO SCH (05:23)
[2017-09-25] MEDS: LEVETIRACETAM 250 MG TAB PO SCH ×2 (07:45→20:43)
[2017-09-25] MEDS: BCP'S~ORDER AWAITING ACTION SCH ×2 (07:45→15:14)
[2017-09-25] MEDS: PANTOprazole SOD 40 MG TAB PO SCH (07:46)
[2017-09-25] MEDS: ENOXAPARIN 40 MG/0.4 ML SYR SC SCH (07:47)
[2017-09-25] MEDS: METOPROLOL SUCC 25MG EXT REL TAB PO SCH (07:48)
[2017-09-25] MEDS: NICOTINE 14 MG/24 HR TDSY TD SCH (07:48)
[2017-09-25] MEDS ORDERED: VANCOMYCIN INJ 1,500 MG in SODIUM CHLORIDE 0.9% 500ML 500 ML IV SCH (08:00)
[2017-09-25] MEDS: INSULIN ASPART 100 UNITS/ML 3 ML PEN SC SCH ×4 (08:07→20:44)
[2017-09-25] MEDS: OSELTAMIVIR PHOSPHATE 75 MG CAP PO SCH ×2 (08:09→20:43)
[2017-09-25] MEDS: ALBUT/IPRATROP 3MG/0.5MG NEB 3 ML VIAL INH PRN ×2 (14:44→19:18)
--- NOTE | 2017-09-25 20:19 | Progress Note ---
Medicine Progress Note Date & Time of Visit: Sep 25, 2017 at 16:10 . Subjective CC: Follow-up visit for influenza A and pneumonia. HPI: Feels better. Cough improved. Less SOB. Some chest pain with coughing. No fever or chills. ROS: General- as noted above in HPI Resp- as noted above in HPI Cardiac- no chest pain, no edema GI- no nausea, no vomiting, no diarrhea - no dysuria, no difficulty voiding . Objective Last 8 Hrs Date Time Temp Pulse Resp B/P (MAP) Pulse Ox O2 Delivery O2 Flow Rate FiO2 09/25/17 19:30 36.8 98 20 135/73 (93) 95 Room Air 09/25/17 19:17 97 16 99 Room Air 09/25/17 16:00 Room Air 09/25/17 15:30 36.6 94 20 116/76 (89) 94 Room Air 09/25/17 14:44 89 16 97 Room Air Physical Exam: General- lying in bed; no distress Lungs- scattered rhonchi, mild wheezing; no respiratory distress Cardiovascular- RRR; no gallop; no JVD; no pretibial edema Abdomen- + bowel sounds, soft, nontender Extremities- no cyanosis; no calf tenderness Neuro- alert, oriented Skin- warm & dry . Laboratory Results: Last 24 Hours Test 09/24/17 20:47 09/25/17 02:47 09/25/17 08:02 09/25/17 11:03 Lactic Acid Level 2.2 mmol/L 1.5 mmol/L White Blood Count 9.59 K/uL Red Blood Count 4.18 M/uL Hemoglobin 12.8 g/dL Hematocrit 37.9 % Mean Corpuscular Volume 90.7 fL Mean Corpuscular Hemoglobin 30.6 pg Mean Corpuscular Hemoglobin Concent 33.8 g/dl RDW Standard Deviation 44.0 fL RDW Coefficient of Variation 13.5 % Platelet Count 300 K/uL Mean Platelet Volume 9.3 fL Sodium Level 138 mmol/L Potassium Level 3.6 mmol/L Chloride Level 106 mmol/L Carbon Dioxide Level 25 mmol/L Anion Gap 7.0 mmol/L Blood Urea Nitrogen 6 mg/dl Creatinine 0.67 mg/dl Est Creatinine Clear Calc Drug Dose 161.4 ml/min Estimated GFR () 144.6 Estimated GFR (Non- 124.8 BUN/Creatinine Ratio 9.6 Random Glucose 92 mg/dl Calcium Level 8.3 mg/dl Bedside Glucose 152 mg/dl 87 mg/dl Test 09/25/17 16:19 Bedside Glucose 93 mg/dl Date/Time Source Procedure Growth Status 09/24/17 20:47 Blood Blood Culture Pending Received 09/24/17 20:45 Blood Blood Culture Pending Received 09/25/17 08:15 Nasal MRSA DNA Surveillance Screen - Final Specimen Negative for MRSA by DNA Probe Complete 09/25/17 16:10 Sputum Expectorated Sputum Gram Stain Pending Received 09/25/17 16:10 Sputum Expectorated Sputum Sputum Culture Pending Received Assessment & Plan PNEUMONIA CT demonstrated multifocal infiltrates consistent with pneumonia. Hospitalized in July, so must consider health-care acquired pneumonia. Initially received IV vancomycin, piperacillin / tazobactam, levofloxacin. Nasal MRSA screen negative, so MRSA pneumonia very unlikely. Vancomycin discontinued. Sputum C&S pending. Continue levofloxacin and piperacillin / tazobactam. INFLUENZA A Continue oseltamivir. EXACERBATION ASTHMA Secondary to respiratory tract infections. HYPOTHYROIDISM Continue levothyroxine. SEIZURE DISORDER Continue usual anticonvulsants. VTE PROPHYLAXIS SQ enoxaparin. Ambulate. DISPOSITION Expected discharge to home. Internal Medicine follow-up with Dr. Kolb. . Current Inpatient Medications: Current Inpatient Medications Medications (Trade) Dose Ordered Sig/Miroslava Route Start Time Stop Time Status Last Admin Dose Admin Ioversol (Optiray 320) 100 ml UD PRN IV 09/24/17 20:15 09/28/17 20:14 Enoxaparin Sodium (Lovenox Inj) 40 mg DAILY SC 09/25/17 09:00 10/25/17 08:59 09/25/17 07:47 40 MG Acetaminophen (Tylenol Tab) 650 mg Q4H PRN PO 09/24/17 22:15 10/24/17 22:14 Ondansetron HCl (Zofran Inj) 4 mg Q6H PRN IV 09/24/17 22:15 10/24/17 22:14 09/24/17 23:41 4 MG Insulin Aspart (novoLOG ASPART) SLIDING SCALE If C... ACHS SC 09/25/17 07:00 10/25/17 06:59 09/25/17 17:02 5 UNITS Glucose (Glucose 40% Gel) 15-30 GRAMS 15 GRAMS... UD PRN PO 09/24/17 22:15 10/24/17 22:14 Glucose (Glucose Chew Tab) 4-8 Tablets 4 Tabl... UD PRN PO 09/24/17 22:15 10/24/17 22:14 Dextrose (Dextrose 50% 50ML Syringe) 25-50ML OF 50% DW IV FOR... UD PRN IV 09/24/17 22:15 10/24/17 22:14 Glucagon (Glucagon Inj) 1 mg UD PRN SQ 09/24/17 22:15 10/24/17 22:14 Nicotine (Nicoderm Cq 14MG Patch) 1 patch QAM TD 09/24/17 22:15 10/24/17 22:14 09/25/17 07:48 1 PATCH Miscellaneous (Remove Nicoderm Patch) 1 ea HS N/A 09/25/17 21:00 10/25/17 20:59 Albuterol/ Ipratropium (Duoneb) 3 ml QIDR PRN INH 09/24/17 22:15 10/24/17 22:14 09/25/17 19:18 3 ML Levofloxacin 750 mg/Prmx 150 ml @ 100 mls/hr Q24H IV 09/24/17 23:00 10/01/17 22:59 09/24/17 23:04 100 MLS/HR Folic Acid (Folvite Tab) 3 mg QAM PO 09/25/17 09:00 10/25/17 08:59 09/25/17 07:47 3 MG Lamotrigine (Lamictal Tab) 200 mg BID PO 09/25/17 09:00 10/25/17 08:59 09/25/17 07:46 200 MG Levetiracetam (Keppra Tab) 750 mg BID PO 09/25/17 09:00 10/25/17 08:59 09/25/17 07:45 750 MG Levothyroxine Sodium (Synthroid Tab) 50 mcg DAILYBB PO 09/25/17 06:00 10/25/17 05:59 09/25/17 05:23 50 MCG Metoprolol Succinate (Toprol Xl Tab) 25 mg DAILY PO 09/25/17 09:00 10/25/17 08:59 09/25/17 07:48 25 MG Nortriptyline HCl (Pamelor Cap) 25 mg HS PO 09/25/17 21:00 10/25/17 20:59 Miscellaneous Information (Order Awaiting Action) 1 ea QS N/A 09/25/17 08:00 10/25/17 07:59 Pantoprazole Sodium (Protonix Tab) 40 mg QAM PO 09/25/17 09:00 10/25/17 08:59 09/25/17 07:46 40 MG Oseltamivir Phosphate (Tamiflu Cap) 75 mg BID PO 09/25/17 09:00 09/30/17 08:59 09/25/17 08:09 75 MG
[2017-09-25] MEDS: NORTRIPTYLINE HCL 25 MG CAP PO SCH (20:42)
[2017-09-25] MEDS: LEVOFLOXACIN / D5W 750 MG in PREMIXED IN D5W 150 ML IV SCH (22:32)
[2017-09-25] MEDS ORDERED: VANCOMYCIN TROUGH ONE (23:30)
[2017-09-26] MEDS: LEVOTHYROXINE 50 MCG TAB PO SCH (06:29)
[2017-09-26 06:44] LABS: HEMOGLOBIN A1C 4.6 % (4.5-5.6)
[2017-09-26] MEDS: ALBUT/IPRATROP 3MG/0.5MG NEB 3 ML VIAL INH PRN ×2 (07:23→22:50)
[2017-09-26 07:27] VITALS: PULSE 91; O2SAT 96
[2017-09-26 07:45] LABS: CALCIUM 8.9 mg/dl (8.5-10.1); CREATININE 0.7 mg/dl (0.60-1.20); POTASSIUM 3.5 mmol/L (3.5-5.1)
[2017-09-26 08:07] VITALS: BP 119/79; PULSE 91; TEMP 36.6; O2SAT 95
[2017-09-26] MEDS: OSELTAMIVIR PHOSPHATE 75 MG CAP PO SCH ×2 (09:30→22:34)
[2017-09-26] MEDS: METOPROLOL SUCC 25MG EXT REL TAB PO SCH (09:30)
[2017-09-26] MEDS: [UNRECOGNIZED DRUG - OTHER] PO SCH (09:30)
[2017-09-26] MEDS: PANTOprazole SOD 40 MG TAB PO SCH (09:30)
[2017-09-26] MEDS: ETHINYL ESTRADIOL PO SCH (09:30)
[2017-09-26] MEDS: NICOTINE 14 MG/24 HR TDSY TD SCH (09:30)
[2017-09-26] MEDS: ENOXAPARIN 40 MG/0.4 ML SYR SC SCH (09:30)
[2017-09-26] MEDS: INSULIN ASPART 100 UNITS/ML 3 ML PEN SC SCH ×4 (09:30→21:00)
[2017-09-26] MEDS: LEVETIRACETAM 250 MG TAB PO SCH ×2 (09:30→22:32)
[2017-09-26] MEDS: DESOGESTREL PO SCH (09:30)
[2017-09-26 15:55] VITALS: BP 105/65; PULSE 83; TEMP 36.4; O2SAT 97
[2017-09-26 17:00] VITALS: O2SAT 97
--- NOTE | 2017-09-26 19:33 | Progress Note ---
Medicine Progress Note Date & Time of Visit: Sep 26, 2017 at 10:00 . Subjective CC: Follow-up visit for influenza A and pneumonia. HPI: Better. Cough and dyspnea improved. No fever or chills. ROS: General- as noted above in HPI Resp- as noted above in HPI Cardiac- no chest pain, no edema GI- no nausea, no vomiting, no diarrhea - no dysuria . Objective Last 8 Hrs Date Time Temp Pulse Resp B/P (MAP) Pulse Ox O2 Delivery O2 Flow Rate FiO2 09/26/17 15:55 36.4 83 20 105/65 (78) 97 Room Air Physical Exam: General- sitting on side of bed; no distress Lungs- scattered rhonchi, diffuse mild wheezing; no respiratory distress Cardiovascular- RRR; no gallop; no JVD; no pretibial edema Abdomen- + bowel sounds, soft, nontender Extremities- no cyanosis; no calf tenderness Neuro- alert, oriented Skin- warm & dry . Laboratory Results: Last 24 Hours Test 09/25/17 20:27 09/26/17 06:00 09/26/17 07:41 09/26/17 11:26 Bedside Glucose 90 mg/dl 79 mg/dl 133 mg/dl Sodium Level 138 mmol/L Potassium Level 3.5 mmol/L Chloride Level 103 mmol/L Carbon Dioxide Level 26 mmol/L Anion Gap 9.0 mmol/L Blood Urea Nitrogen 9 mg/dl Creatinine 0.70 mg/dl Est Creatinine Clear Calc Drug Dose 154.8 ml/min Estimated GFR () 142.5 Estimated GFR (Non- 123.0 BUN/Creatinine Ratio 12.8 Random Glucose 76 mg/dl Calcium Level 8.9 mg/dl Test 09/26/17 18:32 Bedside Glucose 90 mg/dl Date/Time Source Procedure Growth Status 09/26/17 08:50 Stool Shiga Toxin Test Pending Received 09/26/17 08:50 Stool Stool Culture Pending Received 09/26/17 08:50 Stool C.difficile Toxin B Gene (PCR) - Final No C. difficile toxin B gene detected Complete Assessment & Plan PNEUMONIA CT demonstrated multifocal infiltrates consistent with pneumonia. Hospitalized in July, so must consider health-care acquired pneumonia. Initially received IV vancomycin, piperacillin / tazobactam, levofloxacin. Nasal MRSA screen negative, so MRSA pneumonia very unlikely. Vancomycin discontinued. Sputum C&S --> normal arun. Continue levofloxacin and piperacillin / tazobactam. INFLUENZA A Continue oseltamivir. EXACERBATION ASTHMA Secondary to respiratory tract infections. HYPOTHYROIDISM Continue levothyroxine. SEIZURE DISORDER Continue usual anticonvulsants. VTE PROPHYLAXIS SQ enoxaparin. Ambulate. DISPOSITION Expected discharge to home. Internal Medicine follow-up with Dr. Kolb. . Current Inpatient Medications: Current Inpatient Medications Medications (Trade) Dose Ordered Sig/Miroslava Route Start Time Stop Time Status Last Admin Dose Admin Ioversol (Optiray 320) 100 ml UD PRN IV 09/24/17 20:15 09/28/17 20:14 Enoxaparin Sodium (Lovenox Inj) 40 mg DAILY SC 09/25/17 09:00 10/25/17 08:59 09/26/17 09:30 40 MG Acetaminophen (Tylenol Tab) 650 mg Q4H PRN PO 09/24/17 22:15 10/24/17 22:14 Ondansetron HCl (Zofran Inj) 4 mg Q6H PRN IV 09/24/17 22:15 10/24/17 22:14 09/24/17 23:41 4 MG Insulin Aspart (novoLOG ASPART) SLIDING SCALE If C... ACHS SC 09/25/17 07:00 10/25/17 06:59 09/26/17 18:38 1 UNITS Glucose (Glucose 40% Gel) 15-30 GRAMS 15 GRAMS... UD PRN PO 09/24/17 22:15 10/24/17 22:14 Glucose (Glucose Chew Tab) 4-8 Tablets 4 Tabl... UD PRN PO 09/24/17 22:15 10/24/17 22:14 Dextrose (Dextrose 50% 50ML Syringe) 25-50ML OF 50% DW IV FOR... UD PRN IV 09/24/17 22:15 10/24/17 22:14 Glucagon (Glucagon Inj) 1 mg UD PRN SQ 09/24/17 22:15 10/24/17 22:14 Nicotine (Nicoderm Cq 14MG Patch) 1 patch QAM TD 09/24/17 22:15 10/24/17 22:14 09/26/17 09:30 1 PATCH Miscellaneous (Remove Nicoderm Patch) 1 ea HS N/A 09/25/17 21:00 10/25/17 20:59 09/25/17 20:42 1 EA Albuterol/ Ipratropium (Duoneb) 3 ml QIDR PRN INH 09/24/17 22:15 10/24/17 22:14 09/26/17 07:23 3 ML Levofloxacin 750 mg/Prmx 150 ml @ 100 mls/hr Q24H IV 09/24/17 23:00 10/01/17 22:59 09/25/17 22:32 100 MLS/HR Folic Acid (Folvite Tab) 3 mg QAM PO 09/25/17 09:00 10/25/17 08:59 09/26/17 09:30 3 MG Lamotrigine (Lamictal Tab) 200 mg BID PO 09/25/17 09:00 10/25/17 08:59 09/26/17 09:30 200 MG Levetiracetam (Keppra Tab) 750 mg BID PO 09/25/17 09:00 10/25/17 08:59 09/26/17 09:30 750 MG Levothyroxine Sodium (Synthroid Tab) 50 mcg DAILYBB PO 09/25/17 06:00 10/25/17 05:59 09/26/17 06:29 50 MCG Metoprolol Succinate (Toprol Xl Tab) 25 mg DAILY PO 09/25/17 09:00 10/25/17 08:59 09/26/17 09:30 25 MG Nortriptyline HCl (Pamelor Cap) 25 mg HS PO 09/25/17 21:00 10/25/17 20:59 09/25/17 20:42 25 MG Pantoprazole Sodium (Protonix Tab) 40 mg QAM PO 09/25/17 09:00 10/25/17 08:59 09/26/17 09:30 40 MG Oseltamivir Phosphate (Tamiflu Cap) 75 mg BID PO 09/25/17 09:00 09/30/17 08:59 09/26/17 09:30 75 MG
[2017-09-26] MEDS: NORTRIPTYLINE HCL 25 MG CAP PO SCH (22:34)
[2017-09-26] MEDS: LEVOFLOXACIN / D5W 750 MG in PREMIXED IN D5W 150 ML IV SCH (22:36)
[2017-09-26 22:50] VITALS: PULSE 98; O2SAT 96
[2017-09-27 01:26] VITALS: BP 115/77; PULSE 95; TEMP 36.8; O2SAT 95
[2017-09-27] MEDS: LEVOTHYROXINE 50 MCG TAB PO SCH (06:39)
[2017-09-27 07:22] VITALS: BP 116/77; PULSE 83; TEMP 36.5; O2SAT 96
[2017-09-27] MEDS: PANTOprazole SOD 40 MG TAB PO SCH (08:24)
[2017-09-27] MEDS: METOPROLOL SUCC 25MG EXT REL TAB PO SCH (08:25)
[2017-09-27] MEDS: OSELTAMIVIR PHOSPHATE 75 MG CAP PO SCH (08:25)
[2017-09-27] MEDS: LEVETIRACETAM 250 MG TAB PO SCH (08:26)
[2017-09-27] MEDS: DESOGESTREL PO SCH (08:28)
[2017-09-27] MEDS: [UNRECOGNIZED DRUG - OTHER] PO SCH (08:28)
[2017-09-27] MEDS: ENOXAPARIN 40 MG/0.4 ML SYR SC SCH (08:28)
[2017-09-27] MEDS: ETHINYL ESTRADIOL PO SCH (08:28)
[2017-09-27] MEDS: NICOTINE 14 MG/24 HR TDSY TD SCH (08:29)
[2017-09-27] MEDS: INSULIN ASPART 100 UNITS/ML 3 ML PEN SC SCH ×2 (08:39→13:11)
[2017-09-27 14:27] VITALS: BP 118/82; PULSE 90; TEMP 36.8; O2SAT 96
[2017-09-27] MEDS ORDERED: LEVOFLOXACIN 750 MG TAB PO SCH (15:30)
--- NOTE | 2017-09-27 15:38 | Progress Note ---
Medicine Progress Note Date & Time of Visit: Sep 27, 2017 at 15:38 . Subjective Doing well. No fever. Cough much better. No CP or SOB. No nausea, vomiting, diarrhea. . Objective Last 8 Hrs Date Time Temp Pulse Resp B/P (MAP) Pulse Ox O2 Delivery O2 Flow Rate FiO2 09/27/17 15:05 Room Air 09/27/17 14:27 36.8 90 18 118/82 (94) 96 09/27/17 08:30 Room Air Physical Exam: General- no distress Lungs- minimal wheezing; no respiratory distress Cardiovascular- RRR; no gallop; no JVD; no pretibial edema Abdomen- + bowel sounds, soft, nontender Extremities- no cyanosis; no calf tenderness Neuro- alert, oriented Skin- warm & dry . Laboratory Results: Last 24 Hours Test 09/26/17 18:32 09/26/17 19:59 09/27/17 07:53 09/27/17 11:27 Bedside Glucose 90 mg/dl 94 mg/dl 82 mg/dl 98 mg/dl Assessment & Plan PNEUMONIA CT demonstrated multifocal infiltrates consistent with pneumonia. Hospitalized in July, so must consider health-care acquired pneumonia. Initially received IV vancomycin, piperacillin / tazobactam, levofloxacin. Nasal MRSA screen negative, so MRSA pneumonia very unlikely. Vancomycin discontinued. Sputum C&S --> normal arun. Continued levofloxacin and piperacillin / tazobactam with improvement. Discharged on levofloxacin to complete 7 days of therapy. INFLUENZA A Continue oseltamivir to complete 5 day course of therapy. EXACERBATION ASTHMA Secondary to respiratory tract infections. Improved without steroids. Continue albuterol PRN. HYPOTHYROIDISM Continue levothyroxine. SEIZURE DISORDER Continue usual anticonvulsants. VTE PROPHYLAXIS SQ enoxaparin. Ambulate. DISPOSITION Discharge to home. Internal Medicine follow-up with Dr. Kolb. . Current Inpatient Medications: Current Inpatient Medications Medications (Trade) Dose Ordered Sig/Miroslava Route Start Time Stop Time Status Last Admin Dose Admin Ioversol (Optiray 320) 100 ml UD PRN IV 09/24/17 20:15 09/28/17 20:14 Enoxaparin Sodium (Lovenox Inj) 40 mg DAILY SC 09/25/17 09:00 10/25/17 08:59 09/27/17 08:28 40 MG Acetaminophen (Tylenol Tab) 650 mg Q4H PRN PO 09/24/17 22:15 10/24/17 22:14 Ondansetron HCl (Zofran Inj) 4 mg Q6H PRN IV 09/24/17 22:15 10/24/17 22:14 09/24/17 23:41 4 MG Insulin Aspart (novoLOG ASPART) SLIDING SCALE If C... ACHS SC 09/25/17 07:00 10/25/17 06:59 09/27/17 13:11 6 UNITS Glucose (Glucose 40% Gel) 15-30 GRAMS 15 GRAMS... UD PRN PO 09/24/17 22:15 10/24/17 22:14 Glucose (Glucose Chew Tab) 4-8 Tablets 4 Tabl... UD PRN PO 09/24/17 22:15 10/24/17 22:14 Dextrose (Dextrose 50% 50ML Syringe) 25-50ML OF 50% DW IV FOR... UD PRN IV 09/24/17 22:15 10/24/17 22:14 Glucagon (Glucagon Inj) 1 mg UD PRN SQ 09/24/17 22:15 10/24/17 22:14 Nicotine (Nicoderm Cq 14MG Patch) 1 patch QAM TD 09/24/17 22:15 10/24/17 22:14 09/27/17 08:29 1 PATCH Miscellaneous (Remove Nicoderm Patch) 1 ea HS N/A 09/25/17 21:00 10/25/17 20:59 09/26/17 21:00 1 EA Albuterol/ Ipratropium (Duoneb) 3 ml QIDR PRN INH 09/24/17 22:15 10/24/17 22:14 09/26/17 22:50 3 ML Folic Acid (Folvite Tab) 3 mg QAM PO 09/25/17 09:00 10/25/17 08:59 09/27/17 08:26 3 MG Lamotrigine (Lamictal Tab) 200 mg BID PO 09/25/17 09:00 10/25/17 08:59 09/27/17 08:25 200 MG Levetiracetam (Keppra Tab) 750 mg BID PO 09/25/17 09:00 10/25/17 08:59 09/27/17 08:26 750 MG Levothyroxine Sodium (Synthroid Tab) 50 mcg DAILYBB PO 09/25/17 06:00 10/25/17 05:59 09/27/17 06:39 50 MCG Metoprolol Succinate (Toprol Xl Tab) 25 mg DAILY PO 09/25/17 09:00 10/25/17 08:59 09/27/17 08:25 25 MG Nortriptyline HCl (Pamelor Cap) 25 mg HS PO 09/25/17 21:00 10/25/17 20:59 09/26/17 22:34 25 MG Pantoprazole Sodium (Protonix Tab) 40 mg QAM PO 09/25/17 09:00 10/25/17 08:59 09/27/17 08:24 40 MG Oseltamivir Phosphate (Tamiflu Cap) 75 mg BID PO 09/25/17 09:00 09/30/17 08:59 09/27/17 08:25 75 MG Levofloxacin (Levaquin Tab) 750 mg DAILY@11 PO 09/27/17 15:30 10/01/17 15:29
[2017-09-27] MEDS ORDERED: LVQ750 PO (15:42)
[2017-09-27] MEDS ORDERED: TMF75 PO (15:42)
--- NOTE | 2017-09-27 15:51 | Discharge Instructions ---
Discharge Instructions Date of Service Sep 27, 2017. Admission Reason for Admission: cough . Discharge Discharge Diagnosis / Problem: influenza, pneumonia Discharge Goals Goal(s): Decrease discomfort, Improve disease control Activity Recommendations Activity Limitations: resume your previous activity . Instructions / Follow-Up Instructions / Follow-Up APPOINTMENTS: INTERNAL MEDICINE 09/30/2017 11:20 AM Melissa Kolb, DO OTHER INSTRUCTIONS: Take levofloxacin (Levaquin) every evening for 4 more days. Take oseltamivir (Tamiflu) twice a day until gone. Please ask Dr. Kolb to order repeat chest x-ray in 4-6 weeks to make sure that pneumonia. Seek medical attention if you have: * temperature above 101 * chest pain or trouble breathing * abdominal pain, nausea, vomiting * diarrhea, dark stools or bloody stools * any unanswered questions or concerns Call 911 if symptoms are severe. Call if you have any questions or problems. My cell # is [phone]. You can also reach a [facility] hospitalist on duty at [facility] 24 hours a day by calling [phone]. Please take good care of yourself. Jonas Agudelo . Current Hospital Diet Patient's current hospital diet: AHA Diet (Heart Healthy) Discharge Diet Recommended Diet: Regular Diet Pending Studies Studies pending at discharge: no Laboratory Results Hemoglobin A1c Test 09/25/17 02:47 Range/Units Estimated Average Glucose 85 mg/dl Hemoglobin A1c 4.6 4.5-5.6 % Medical Emergencies . Who to Call and When: Medical Emergencies: If at any time you feel your situation is an emergency, please call 911 immediately. . Non-Emergent Contact Non-Emergency issues call your: Primary Care Provider, Hospital Doctor . . "Provider Documentation" section prepared by Jonas Agudelo. . VTE Core Measure Inpt VTE Proph given/why not?: Enoxaparin (Lovenox)SQ
[2017-09-27 15:52] VITALS: BP 118/82; PULSE 90; TEMP 36.8; O2SAT 96
--- NOTE | 2017-09-28 13:23 | Discharge Summary ---
Discharge Summary Date of Service Sep 28, 2017. Discharge Summary Admission Date: Sep 24, 2017 at 21:46 Discharge Date: Sep 27, 2017 Discharge Disposition: Home Principal Diagnosis: pneumonia influenza A exacerbation asthma . Secondary Diagnoses/Problems: Chronic and Resolved Medical Problems: (1) Acanthosis nigricans, acquired Status: Chronic (2) Asthma Status: Chronic (3) Dyslipidemia Status: Chronic (4) GERD (gastroesophageal reflux disease) Status: Chronic (5) Hypothyroidism Status: Chronic (6) Inappropriate sinus tachycardia Status: Chronic (7) Kidney stone Status: Chronic (8) OAB (overactive bladder) Status: Chronic (9) Ovarian cyst Status: Chronic (10) PTSD (post-traumatic stress disorder) Status: Chronic (11) Seizures Status: Chronic (12) Vaginal delivery Status: Resolved Surgical Problems: (1) H/O colonoscopy Status: Chronic (2) H/O esophagogastroduodenoscopy Status: Chronic (3) H/O foot surgery Status: Chronic (4) S/P laparoscopic cholecystectomy Status: Chronic (5) S/P removal of ovarian cyst Status: Chronic (6) Status post Mohs surgery Status: Chronic . Procedures: CTA chest . Pending Studies/Follow-Up: Please schedule f/u CT chest in 4-6 weeks re: multilobar pneumonia. . Medication Reconciliation New Medications: Levofloxacin (Levofloxacin) 750 Mg Tab 750 MG PO QPM, #4 TAB Oseltamivir Phosphate (Tamiflu) 75 Mg Cap 75 MG PO BID, #4 CAP Continued Medications: Acetaminophen (Tylenol) 500 Mg Tab 1000 MG PO Q6H PRN for Headache, TAB Albuterol Hfa (Ventolin Hfa) 200 Puffs/59662 Mcg Aers 2 PUFFS INH UD PRN for Asthma Symptoms Albuterol Sulf (Albuterol Sulfate) 2.5 Mg/0.5 Ml Nebu 2.5 MG NEB Q4H PRN for Shortness of Breath Control Pills ( Control Pills) Tab 1 TAB PO QAM, TAB Folic Acid (Folvite) 1 Mg Tab 3 MG PO QAM, TAB Lamotrigine (Lamictal) 200 Mg Tab 200 MG PO BID, TAB Levetiracetam (Keppra) 750 Mg Tab 750 MG PO BID, TAB Levothyroxine Sodium (Levothyroxine Sodium) 50 Mcg Tab 50 MCG PO DAILY, TAB Metoprolol Succinate (Metoprolol Succinate ER) 25 Mg Tabcr 25 MG PO DAILY Nortriptyline (Pamelor) 25 Mg Cap 25 MG PO HS, CAP Omeprazole (Prilosec) 40 Mg Cap 40 MG PO DAILY, CAP Admission Information HPI (per Admitting provider): 22 yo F smoker with seizure disorder, borderline DMII, obesity and asthma presents with worsening tachycardia that began yesterday. She was found to be flu positive on 09/11 and treated with Tamiflu as outpatient for 5 days, which she completed. She states that her cough persisted, however, and she began becoming more short of breath, losing her voice and felt her heart start racing yesterday. She went to [facility] yesterday and was given Levaquin for pneumonia and has taken two doses, but doesn't feel better. She reports some fever and malaise when initially diagnosed with fever but these have subsided over the past week. She does have a productive cough of greenish sputum, sinus pressure and green drainage from her nose. She has a mild sore throat and reports that she has been staying hydrated but has had two weeks of diarrhea with 1-3 loose stool episodes daily. She has incidentally had no menstrual cycle for two months and just began today so has some mild abdominal discomfort from that but no nausea or vomiting. She is breathing at ease and has no wheezing currently on exam despite no breathing treatment here. She is oxygenating well on room air and speaking in full sentences. In the ER, workup revealed presence of a pneumonia, flu A positive and no PE on CTA. Lactate was elevated to 2/2 but she does not appear septic and was given IVF and cefepime and started on breathing treatments. . Physical Exam (per Admitting): General Appearance: WD/WN, no apparent distress Head: normocephalic, atraumatic Eyes: normal inspection, PERRL, sclerae normal ENT: hearing grossly normal, pharynx normal Neck: supple, no adenopathy, trachea midline Respiratory/Chest: lungs clear, normal breath sounds, no respiratory distress, no accessory muscle use Cardiovascular: regular rate, rhythm, no edema, no gallop, no JVD, no murmur , normal peripheral pulses Abdomen/GI: normal bowel sounds, soft, no organomegaly, + tenderness (LLQ) Back: normal inspection Extremities/Musculoskelatal: normal inspection, no pedal edema Neurologic/Psych: polls or surveys interviewer II-XII nml as tested, no motor/sensory deficits, alert , normal mood/affect, oriented x 3 Skin: normal color, warm/dry Hospital Course PNEUMONIA CT demonstrated multifocal infiltrates consistent with pneumonia. Hospitalized in July, so considered health-care acquired pneumonia. Initially received IV vancomycin, piperacillin / tazobactam, levofloxacin. Nasal MRSA screen negative, so MRSA pneumonia very unlikely. Vancomycin discontinued. Sputum C&S --> normal arun. Continued levofloxacin and piperacillin / tazobactam with improvement. Discharged on levofloxacin to complete 7 days of therapy. INFLUENZA A Continue oseltamivir to complete 5 day course of therapy. EXACERBATION ASTHMA Secondary to respiratory tract infections. Improved without steroids. Continue albuterol PRN. HYPOTHYROIDISM Continued levothyroxine. SEIZURE DISORDER Continued usual anticonvulsants. VTE PROPHYLAXIS SQ enoxaparin. Ambulating. DISPOSITION Discharged to home. Internal Medicine follow-up with Dr. Kolb. . Total time spent on discharge = This includes examination of the patient, discharge planning, medication reconciliation, and communication with other providers. Discharge Instructions Date of Service Sep 27, 2017. Admission Reason for Admission: cough . Discharge Discharge Diagnosis / Problem: influenza, pneumonia Discharge Goals Goal(s): Decrease discomfort, Improve disease control Activity Recommendations Activity Limitations: resume your previous activity . Instructions / Follow-Up Instructions / Follow-Up APPOINTMENTS: INTERNAL MEDICINE 09/30/2017 11:20 AM Melissa Kolb, DO OTHER INSTRUCTIONS: Take levofloxacin (Levaquin) every evening for 4 more days. Take oseltamivir (Tamiflu) twice a day until gone. Please ask Dr. Kolb to order repeat chest x-ray in 4-6 weeks to make sure that pneumonia. Seek medical attention if you have: * temperature above 101 * chest pain or trouble breathing * abdominal pain, nausea, vomiting * diarrhea, dark stools or bloody stools * any unanswered questions or concerns Call 911 if symptoms are severe. Call if you have any questions or problems. My cell # is [phone]. You can also reach a [facility] hospitalist on duty at [facility] 24 hours a day by calling [phone]. Please take good care of yourself. Jonas Agudelo . Current Hospital Diet Patient's current hospital diet: AHA Diet (Heart Healthy) Discharge Diet Recommended Diet: Regular Diet Pending Studies Studies pending at discharge: no Laboratory Results Hemoglobin A1c Test 09/25/17 02:47 Range/Units Estimated Average Glucose 85 mg/dl Hemoglobin A1c 4.6 4.5-5.6 % Medical Emergencies . Who to Call and When: Medical Emergencies: If at any time you feel your situation is an emergency, please call 911 immediately. . Non-Emergent Contact Non-Emergency issues call your: Primary Care Provider, Hospital Doctor . . "Provider Documentation" section prepared by Jonas Agudelo. . VTE Core Measure Inpt VTE Proph given/why not?: Enoxaparin (Lovenox)SQ .
== END 2017-09-27 17:37 | disposition home or self-care (01) | DRG 194 ==
LOC: C.EDB 19:46 → C.2E 21:46 → ENRESERV 21:59 → C.4E 09-25 21:30
PROVIDERS: ADMIT Hospitalist; ATTEND Hospitalist
DX: J10.00 Influenza due to other identified influenza virus with unspecified type of pneumonia (principal); J45.901 Unspecified asthma with (acute) exacerbation; J18.9 Pneumonia, unspecified organism; L83 Acanthosis nigricans; E78.5 Hyperlipidemia, unspecified; K21.9 Gastro-esophageal reflux disease without esophagitis; E03.9 Hypothyroidism, unspecified; R56.9 Unspecified convulsions; Z88.5 Allergy status to narcotic agent; Z88.1 Allergy status to other antibiotic agents; R73.03 Prediabetes; E66.9 Obesity, unspecified

== ENCOUNTER 2017-10-11 10:56 | Emergency (ER) | payer OTHER ==
[~2017-10-11] VITALS: Ht 170.2 cm; Wt 103.8 kg
[2017-10-11 10:56] VITALS: TEMP 37.1; Ht 170.2 cm; Wt 103.8 kg
[~2017-10-11 10:56] MED LIST changes: +LVQ750 PO; +TMF75 PO
[2017-10-11 11:26] VITALS: O2SAT 98
--- NOTE | 2017-10-11 11:27 | EMERGENCY ROOM VISIT NOTE ---
History Report prepared by Milkaibperlita: Aicha Dong Under the Supervision of: Dr. Rene Rainey D.O. First contact with patient: 11:17 Chief Complaint: SEIZURE Stated Complaint: SEIZURE Nursing Triage Summary: Patient presents to ER via [facility]. Per EMS, patient was getting up to eat when she became dizzy and had a seizure around 10:00 am. Seizure was witnessed by her mother. Patient has hx of seizures and is diabetic. BSG enroute was 112. History of Present Illness The patient is a 22 year old female who presents to the Emergency Room with complaints of an episode of a seizure this morning about an hour and a half ago. The patient states she had three seizures last night. All of the patient's seizures were witnessed by the patient's mother. The patient follows up with Dr. Waller-neurology. She takes Lamictal and Keppra. The patient states she took her seizure medications this morning as prescribed. She denies any recent changes in her medications. Presently, the patient reports a headache. The patient has a history of tachycardia, seizures, ovarian cysts, cholecystectomy. The patient states she has not has her period for two months which she believes is related to an ovarian cyst. The patient uses tobacco. The patient reports she fell yesterday while she was taking a shower. She is unsure if she hit her head. The patient is not on any blood thinners. She denies any chance of . Source of History: patient Onset: an hour and a half ago Position: other (generalized) Quality: other (seizure) Timing: other (episode) Associated Symptoms: + headache Review of Systems See HPI for pertinent positives & negatives. A total of 10 systems reviewed and were otherwise negative. Past Medical & Surgical Medical Problems: (1) Acanthosis nigricans, acquired (2) Asthma (3) Dyslipidemia (4) Flu (5) GERD (gastroesophageal reflux disease) (6) Hospice care (7) Hypothyroidism (8) Inappropriate sinus tachycardia (9) Kidney stone (10) OAB (overactive bladder) (11) Ovarian cyst (12) PTSD (post-traumatic stress disorder) (13) Seizures (14) Sepsis (15) Vaginal delivery Surgical Problems: (1) H/O colonoscopy (2) H/O esophagogastroduodenoscopy (3) H/O foot surgery (4) S/P laparoscopic cholecystectomy (5) S/P removal of ovarian cyst (6) Status post Mohs surgery Family History Diabetes mellitus FATHER GRANDMOTHER FH: cancer FATHER FH: gallbladder disease FH: heart disease FH: seizures MOTHER Social History Smoking Status: Never Smoker Alcohol Use: none Drug Use: none Marital Status: single, in relationship Housing Status: lives with family Occupation Status: disabled Current/Historical Medications Scheduled Control Pills ( Control Pills), 1 TAB PO QAM Folic Acid (Folvite), 3 MG PO QAM Lamotrigine (Lamictal), 200 MG PO BID Levetiracetam (Keppra), 750 MG PO BID Levothyroxine Sodium (Levothyroxine Sodium), 50 MCG PO DAILY Metoprolol Succinate (Metoprolol Succinate ER), 25 MG PO DAILY Nortriptyline (Pamelor), 25 MG PO HS Omeprazole (Prilosec), 40 MG PO DAILY Scheduled PRN Acetaminophen (Tylenol), 1,000 MG PO Q6H PRN for Headache Albuterol Hfa (Ventolin Hfa), 2 PUFFS INH UD PRN for Asthma Symptoms Albuterol Sulf (Albuterol Sulfate), 2.5 MG NEB Q4H PRN for Shortness of Breath Allergies Coded Allergies: Hydromorphone (Verified Allergy, Severe, Respirations stopped., 10/11/17) Amoxicillin (Verified Allergy, Intermediate, RASH, 10/11/17) Morphine (Verified Allergy, Intermediate, HIVES, 10/11/17) Oxycodone (Verified Allergy, Intermediate, Hives, 10/11/17) Adhesives (Verified Adverse Reaction, Mild, RASH, 10/11/17) Physical Exam Vital Signs Date Time Temp Pulse Resp B/P (MAP) Pulse Ox O2 Delivery O2 Flow Rate FiO2 10/11/17 12:47 86 100 10/11/17 12:32 88 99 10/11/17 12:31 136/84 10/11/17 12:17 96 98 10/11/17 12:12 118/76 10/11/17 11:31 130/87 10/11/17 11:26 98 Room Air 10/11/17 11:26 98 Room Air 10/11/17 11:26 87 25 97 10/11/17 11:17 96 10/11/17 11:17 91 2/27/18 11:14 131/75 10/11/17 10:56 37.1 87 18 136/86 99 Room Air Physical Exam GENERAL: Patient is awake, alert, and in no acute distress. Patient is resting comfortably and showing no signs of anxiety EYES: The conjunctivae are clear. The pupils are round and reactive. EARS, NOSE, MOUTH AND THROAT: The nose is without any evidence of any deformity. Mucous membranes are moist tongue is midline NECK: The neck is nontender and supple. RESPIRATORY: Normal respiratory effort is noted there is no evidence of wheezing rhonchi or rales CARDIOVASCULAR: Regular rate and rhythm noted there no murmurs rubs or gallops normal S1 normal S2 GASTROINTESTINAL: The abdomen is soft. Bowel sounds are present in all quadrants. Abdomen is nontender MUSCULOSKELETAL/EXTREMITIES: There is no evidence of gross deformity full range of motion is noted in the hips and shoulders SKIN: There is no obvious evidence of any rash. There are no petechiae, pallor or cyanosis noted. NEUROLOGIC: Patient is awake alert and oriented x3 strength is symmetric patellar reflexes are 2+ bilaterally Medical Decision & Procedures ER Provider Diagnostic Interpretation: Radiology results as stated below per my review and radiologist interpretation: CHEST ONE VIEW PORTABLE FINDINGS: The cardiac silhouette is within normal limits. No pneumothorax or pleural effusion. Ill-defined airspace opacities are noted within the right infrahilar lung and lateral left lung base. There appears be mildly improved aeration of the right lung base from comparison study. No overt pulmonary edema. Bones of the chest appear grossly intact. IMPRESSION: Ill-defined airspace opacities of the right infrahilar lung and lateral left lung base are noted suggesting possible pneumonia or aspiration pneumonitis. There is improved aeration of the right lung base from comparison CTA of the chest 09/24/2017. The above report was generated using voice recognition software. It may contain grammatical, syntax or spelling errors. Electronically signed by: zEra Nj M.D. HEAD WITHOUT CONTRAST (CT) FINDINGS: No acute intracranial hemorrhage, midline shift, intracranial mass, hydrocephalus, territorial ischemia or abnormal extra-axial collection. The calvarium is intact. The mastoid air cells, and middle ear cavities are clear. Partially imaged mild to moderate mucosal thickening of the right maxillary sinus with mild ethmoid and left maxillary sinus disease. IMPRESSION: 1. No acute intracranial abnormality. 2. Paranasal sinus disease. The above report was generated using voice recognition software. It may contain grammatical, syntax or spelling errors. Electronically signed by: Ezra Nj M.D. Laboratory Results 10/11/17 10:35 Red Blood Count 4.67, Mean Corpuscular Volume 88.9, Mean Corpuscular Hemoglobin 30.2, Mean Corpuscular Hemoglobin Concent 34.0, Mean Platelet Volume 9.8, Neutrophils (%) (Auto) 50.7, Lymphocytes (%) (Auto) 34.6, Monocytes (%) (Auto) 8.5, Eosinophils (%) (Auto) 6.0, Basophils (%) (Auto) 0.1, Neutrophils # (Auto) 3.45, Lymphocytes # (Auto) 2.36, Monocytes # (Auto) 0.58, Eosinophils # (Auto) 0.41, Basophils # (Auto) 0.01 10/11/17 10:35 Test 10/11/17 10:35 White Blood Count 6.82 K/uL (4.8-10.8) Red Blood Count 4.67 M/uL (4.2-5.4) Hemoglobin 14.1 g/dL (12.0-16.0) Hematocrit 41.5 % (37-47) Mean Corpuscular Volume 88.9 fL (80-100) Mean Corpuscular Hemoglobin 30.2 pg (25-34) Mean Corpuscular Hemoglobin Concent 34.0 g/dl (32-36) Platelet Count 272 K/uL (130-400) Mean Platelet Volume 9.8 fL (7.4-10.4) Neutrophils (%) (Auto) 50.7 % Lymphocytes (%) (Auto) 34.6 % Monocytes (%) (Auto) 8.5 % Eosinophils (%) (Auto) 6.0 % Basophils (%) (Auto) 0.1 % Neutrophils # (Auto) 3.45 K/uL (1.4-6.5) Lymphocytes # (Auto) 2.36 K/uL (1.2-3.4) Monocytes # (Auto) 0.58 K/uL (0.11-0.59) Eosinophils # (Auto) 0.41 K/uL (0-0.5) Basophils # (Auto) 0.01 K/uL (0-0.2) RDW Standard Deviation 43.9 fL (36.4-46.3) RDW Coefficient of Variation 13.5 % (11.5-14.5) Immature Granulocyte % (Auto) 0.1 % Immature Granulocyte # (Auto) 0.01 K/uL (0.00-0.02) Prothrombin Time 10.0 SECONDS (9.0-12.0) Prothromb Time International Ratio 1.0 (0.9-1.1) Activated Partial Thromboplast Time 25.8 SECONDS (21.0-31.0) Partial Thromboplastin Ratio 1.0 Anion Gap 9.0 mmol/L (3-11) Est Creatinine Clear Calc Drug Dose 145.8 ml/min Estimated GFR () 131.1 Estimated GFR (Non- 113.1 BUN/Creatinine Ratio 17.9 (10-20) Calcium Level 9.0 mg/dl (8.5-10.1) Phosphorus Level 3.5 mg/dl (2.5-4.9) Magnesium Level 2.0 mg/dl (1.8-2.4) Troponin I < 0.015 ng/ml (0-0.045) Thyroid Stimulating Hormone (TSH) 1.690 uIu/ml (0.300-4.500) Human Chorionic Gonadotropin, Qual NEG (NEG) Laboratory results per my review. ECG Per My Interpretation Indication: other (seizure) Rate (beats per minute): 78 Rhythm: normal sinus Findings: no ectopy, other (no PVC, T-wave abnormlities anteriorly) Comparison ECG Date: 09/24/17 Change: no significant change ED Course 1120: The patient was evaluated in room C4. A complete history and physical examination were performed. 1245: I updated the patient on her test results. 1313: Upon reevaluation, the patient is resting comfortably. I discussed the results and treatment plan with her. She verbalized agreement of the treatment plan. The patient was discharged home. Medical Decision Differential diagnosis: Etiologies such as infection, hypoglycemia, electrolyte abnormalities, cardiac sources, intracerebral event, trauma, toxicologic, neurologic, as well as others were entertained. Nursing notes reviewed. Additional history is obtained from the patient's mother. The patient is a 22-year-old female who has a history of seizure disorder who presented to the emergency department for an evaluation after a seizure. The patient did not have any focal neurologic deficits. I discussed the patient's laboratory and radiographic studies with the mother. She was reevaluated multiple times. She appeared to be at her baseline. She was encouraged to continue all medications as prescribed and follow-up with her primary care physician as well as her primary neurologist. Otherwise she was encouraged to return to the emergency department immediately if symptoms change worsen or the need arises. Medication Reconcilliation Current Medication List: was personally reviewed by me Blood Pressure Screening Patient's blood pressure: Elevated blood pressure Blood pressure disposition: Elevated BP felt to be situational Impression Primary Impression: Seizure Scribe Attestation The scribe's documentation has been prepared under my direction and personally reviewed by me in its entirety. I confirm that the note above accurately reflects all work, treatment, procedures, and medical decision making performed by me. Departure Information Dispostion Home / Self-Care Referrals Melissa Kolb D.O. (PCP) Forms HOME CARE DOCUMENTATION FORM, IMPORTANT VISIT INFORMATION Patient Instructions ED Seizure Recurrent, My [facility] Additional Instructions Continue all medications as prescribed. Call your primary neurologist schedule a follow-up appointment. Return to the emergency department immediately if symptoms change worsening of the need arises.
--- NOTE | 2017-10-11 11:42 | DIAGNOSTIC IMAGING REPORT ---
CHEST ONE VIEW PORTABLE HISTORY: 22 years-old Female SEIZURE acute seizure COMPARISON: CTA of the chest 09/24/2017 TECHNIQUE: Portable AP view of the chest FINDINGS: The cardiac silhouette is within normal limits. No pneumothorax or pleural effusion. Ill-defined airspace opacities are noted within the right infrahilar lung and lateral left lung base. There appears be mildly improved aeration of the right lung base from comparison study. No overt pulmonary edema. Bones of the chest appear grossly intact. IMPRESSION: Ill-defined airspace opacities of the right infrahilar lung and lateral left lung base are noted suggesting possible pneumonia or aspiration pneumonitis. There is improved aeration of the right lung base from comparison CTA of the chest 09/24/2017. The above report was generated using voice recognition software. It may contain grammatical, syntax or spelling errors. Electronically signed by: Ezra Nj M.D. 10/11/2017 11:41 AM Dictated Date/Time: 10/11/2017 11:39 AM
[2017-10-11 11:46] LABS: BASO % 0.1 %; BASO ABS # 0.01 K/uL (0-0.2); EOS ABS # 0.41 K/uL (0-0.5); HEMATOCRIT 41.5 % (37-47); HEMOGLOBIN 14.1 g/dL (12.0-16.0); IG# 0.01 K/uL (0.00-0.02); LYMPH % 34.6 %; LYMPH ABS # 2.36 K/uL (1.2-3.4); MEAN CELL VOLUME 88.9 fL (80-100); MEAN CORPUSCULAR HEMOGLOBIN 30.2 pg (25-34); MEAN PLATELET VOLUME 9.8 fL (7.4-10.4); MONO % 8.5 %; MONO ABS # 0.58 K/uL (0.11-0.59); NEUT % 50.7 %; NEUT ABS # 3.45 K/uL (1.4-6.5); PLATELET COUNT 272 K/uL (130-400); RED CELL DISTRIBUTION WIDTH CV 13.5 % (11.5-14.5); RED CELL DISTRIBUTION WIDTH SD 43.9 fL (36.4-46.3); WHITE BLOOD COUNT 6.82 K/uL (4.8-10.8)
[2017-10-11 11:54] LABS: BLOOD UREA NITROGEN 13 mg/dl (7-18); CARBON DIOXIDE 24 mmol/L (21-32); CREATININE 0.75 mg/dl (0.60-1.20); GLUCOSE 72 mg/dl (70-99); POTASSIUM 3.9 mmol/L (3.5-5.1); SODIUM 138 mmol/L (136-145)
[2017-10-11 11:56] LABS: PTT PATIENT 25.8 SECONDS (21.0-31.0)
[2017-10-11 12:05] LABS: PHOSPHORUS 3.5 mg/dl (2.5-4.9)
--- NOTE | 2017-10-11 12:10 | DIAGNOSTIC IMAGING REPORT ---
HEAD WITHOUT CONTRAST (CT) CLINICAL HISTORY: 22 years-old Female with SEIZURE. Acute seizure with dizziness TECHNIQUE: Multiple axial CT images of the head were obtained without contrast. A dose lowering technique was utilized adhering to the principles of ALARA. CT DOSE: 537.48 mGy.cm COMPARISON: Head CT 07/31/2017. FINDINGS: No acute intracranial hemorrhage, midline shift, intracranial mass, hydrocephalus, territorial ischemia or abnormal extra-axial collection. The calvarium is intact. The mastoid air cells, and middle ear cavities are clear. Partially imaged mild to moderate mucosal thickening of the right maxillary sinus with mild ethmoid and left maxillary sinus disease. IMPRESSION: 1. No acute intracranial abnormality. 2. Paranasal sinus disease. The above report was generated using voice recognition software. It may contain grammatical, syntax or spelling errors. Electronically signed by: Ezra Nj M.D. 10/11/2017 12:08 PM Dictated Date/Time: 10/11/2017 12:06 PM
[2017-10-11 12:31] VITALS: BP 136/84
[2017-10-11 12:47] VITALS: PULSE 86; O2SAT 100
[2017-10-15 02:35] LABS: KEPPRA (LEVETIRACETAM) *15142X 9.5 mcg/mL; LAMICTAL (LAMOTRIGINE)**22060 3.4 mcg/mL (4.0-18.0)
== END 2017-10-11 13:15 | disposition home or self-care (01) ==
LOC: EDBD 10:56 → C.EDC 10:58
DX: R56.9 Unspecified convulsions (principal); L83 Acanthosis nigricans; J45.909 Unspecified asthma, uncomplicated; E78.5 Hyperlipidemia, unspecified; K21.9 Gastro-esophageal reflux disease without esophagitis; E03.9 Hypothyroidism, unspecified; Z87.442 Personal history of urinary calculi; F43.10 Post-traumatic stress disorder, unspecified; N32.81 Overactive bladder; Z83.3 Family history of diabetes mellitus; Z80.9 Family history of malignant neoplasm, unspecified; Z83.79 Family history of other diseases of the digestive system; Z82.49 Family history of ischemic heart disease and other diseases of the circulatory system; Z79.3 Long term (current) use of hormonal contraceptives; Z79.899 Other long term (current) drug therapy; Z88.5 Allergy status to narcotic agent; Z88.1 Allergy status to other antibiotic agents; Z91.048 Other nonmedicinal substance allergy status

== ENCOUNTER 2017-10-14 00:23 | Emergency (ER) | payer OTHER ==
[~2017-10-14] VITALS: Ht 170.2 cm; Wt 91.0 kg
[~2017-10-14 00:23] MED LIST changes: -LVQ750 PO; -TMF75 PO
[2017-10-14 00:25] VITALS: TEMP 36.4; Ht 170.2 cm; Wt 91.0 kg
[2017-10-14 00:50] VITALS: O2SAT 97
[2017-10-14 01:25] LABS: BASO % 0.1 %; BASO ABS # 0.01 K/uL (0-0.2); EOS % 6.3 %; EOS ABS # 0.49 K/uL (0-0.5); HEMATOCRIT 44.8 % (37-47); HEMOGLOBIN 15.4 g/dL (12.0-16.0); IG# 0.01 K/uL (0.00-0.02); LYMPH % 39.6 %; LYMPH ABS # 3.07 K/uL (1.2-3.4); MEAN CELL VOLUME 90.5 fL (80-100); MEAN CORPUSCULAR HEMOGLOBIN 31.1 pg (25-34); MEAN CORPUSCULAR HGB CONC 34.4 g/dl (32-36); MEAN PLATELET VOLUME 10.1 fL (7.4-10.4); MONO % 9.8 %; MONO ABS # 0.76 K/uL (0.11-0.59); NEUT % 44.1 %; NEUT ABS # 3.42 K/uL (1.4-6.5); PLATELET COUNT 290 K/uL (130-400); RED CELL DISTRIBUTION WIDTH CV 13.6 % (11.5-14.5); RED CELL DISTRIBUTION WIDTH SD 44.8 fL (36.4-46.3); WHITE BLOOD COUNT 7.76 K/uL (4.8-10.8)
[2017-10-14 01:46] LABS: ALBUMIN 3.4 gm/dl (3.4-5.0); CREATININE 0.73 mg/dl (0.60-1.20); POTASSIUM 3.5 mmol/L (3.5-5.1)
[2017-10-14 01:49] LABS: TOTAL PROTEIN 8.2 gm/dl (6.4-8.2)
[2017-10-14 03:08] VITALS: BP 133/72; PULSE 103; O2SAT 99
--- NOTE | 2017-10-14 07:45 | EMERGENCY ROOM VISIT NOTE ---
History First contact with patient: 00:30 Chief Complaint: SEIZURE Stated Complaint: SEIZURES AND CHEST PAINS History of Present Illness The patient is a 22 year old female who presents to the Emergency Room with complaints of seizure episode that occurred at home earlier tonight. The patient has a long-standing history of seizures, and this is evidently normal for her. She does follow with [facility] neurology and has an appointment in 3 days with her neurologist. She has not had new medication changes. She states that she is adherent to her prescribed medications. The event was witnessed by a male ice skating teacher and there was no biting of the tongue or loss of bowel or bladder control. The patient feels tired at this time but is not reporting significant pain. She rates her discomfort a 4/10. Review of Systems More than 10 systems were reviewed and otherwise negative with the exception of history of present illness. Past Medical/Surgical History Medical Problems: (1) Acanthosis nigricans, acquired (2) Asthma (3) Dyslipidemia (4) Flu (5) GERD (gastroesophageal reflux disease) (6) Hospice care (7) Hypothyroidism (8) Inappropriate sinus tachycardia (9) Kidney stone (10) OAB (overactive bladder) (11) Ovarian cyst (12) PTSD (post-traumatic stress disorder) (13) Seizures (14) Sepsis (15) Vaginal delivery Surgical Problems: (1) H/O colonoscopy (2) H/O esophagogastroduodenoscopy (3) H/O foot surgery (4) S/P laparoscopic cholecystectomy (5) S/P removal of ovarian cyst (6) Status post Mohs surgery Family History Diabetes mellitus FATHER GRANDMOTHER FH: cancer FATHER FH: gallbladder disease FH: heart disease FH: seizures MOTHER Social History Smoking Status: Former Smoker Alcohol Use: none Drug Use: none Marital Status: single, in relationship Housing Status: lives with family Occupation Status: disabled Current/Historical Medications Scheduled Control Pills ( Control Pills), 1 TAB PO QAM Folic Acid (Folvite), 3 MG PO QAM Lamotrigine (Lamictal), 200 MG PO BID Levetiracetam (Keppra), 750 MG PO BID Levothyroxine Sodium (Levothyroxine Sodium), 50 MCG PO DAILY Metoprolol Succinate (Metoprolol Succinate ER), 25 MG PO DAILY Nortriptyline (Pamelor), 25 MG PO HS Omeprazole (Prilosec), 40 MG PO DAILY Scheduled PRN Acetaminophen (Tylenol), 1,000 MG PO Q6H PRN for Headache Albuterol Hfa (Ventolin Hfa), 2 PUFFS INH UD PRN for Asthma Symptoms Albuterol Sulf (Albuterol Sulfate), 2.5 MG NEB Q4H PRN for Shortness of Breath Physical Exam Vital Signs Date Time Temp Pulse Resp B/P (MAP) Pulse Ox O2 Delivery O2 Flow Rate FiO2 10/14/17 03:08 103 20 133/72 99 Room Air 10/14/17 02:48 85 19 120/76 96 Room Air 10/14/17 02:29 80 20 127/79 97 Room Air 10/14/17 02:12 86 20 132/79 97 Room Air 10/14/17 01:31 65 20 135/80 95 Room Air 10/14/17 01:00 100 20 132/78 98 Room Air 10/14/17 00:55 89 10/14/17 00:50 97 Room Air 10/14/17 00:25 36.4 102 16 131/84 98 Room Air Physical Exam VITALS: Vitals are noted on the nurse's note and reviewed by myself. Vital signs stable. GENERAL: Well-developed, well-nourished, white female, who is in no acute distress and resting comfortably. Patient is cooperative with the examination. GCS 15. HEAD: Normocephalic atraumatic. EARS: External ear normal. External auditory canals clear, tympanic membranes pearly beyer without erythema or effusion bilaterally. EYES: Pupils equal round and reactive to light and accommodation. Conjunctivae without injection, sclerae without icterus. Extraocular movements intact. NOSE: Patent, turbinates without inflammation or discharge. MOUTH: Mucous membranes moist. Tonsils are not enlarged. Pharynx without erythema, blood, or exudate. Uvula midline. Airway patent. NECK: Supple without nuchal rigidity. No lymphadenopathy. No thyromegaly. Cervical spine is nontender. HEART: Regular rate and rhythm without murmurs gallops or rubs. LUNGS: Clear to auscultation bilaterally without wheezes, rales or rhonchi. No retractions or accessory muscle use. ABDOMEN: Positive normal bowel sounds x 4. Soft, nontender, without masses or organomegaly. No guarding or rebound tenderness. MUSCULOSKELETAL: No muscle atrophy, erythema, or edema noted. Full range of motion without joint tenderness in all extremities. No tenderness to palpation. Normal gait. Strength 5/5 throughout. NEURO: Patient was alert and oriented to person place and time. CN II through XII grossly intact. No focal neurological deficits. Deep tendon reflexes 2+ throughout. SKIN: The skin was without rashes, erythema, edema, or bruising. Capillary refill less than 2 seconds. Medical Decision & Procedures Laboratory Results 10/14/17 00:00 Red Blood Count 4.95, Mean Corpuscular Volume 90.5, Mean Corpuscular Hemoglobin 31.1, Mean Corpuscular Hemoglobin Concent 34.4, Mean Platelet Volume 10.1, Neutrophils (%) (Auto) 44.1, Lymphocytes (%) (Auto) 39.6, Monocytes (%) (Auto) 9.8, Eosinophils (%) (Auto) 6.3, Basophils (%) (Auto) 0.1, Neutrophils # (Auto) 3.42, Lymphocytes # (Auto) 3.07, Monocytes # (Auto) 0.76, Eosinophils # (Auto) 0.49, Basophils # (Auto) 0.01 10/14/17 00:00 Test 10/14/17 00:00 10/14/17 00:56 White Blood Count 7.76 K/uL (4.8-10.8) Red Blood Count 4.95 M/uL (4.2-5.4) Hemoglobin 15.4 g/dL (12.0-16.0) Hematocrit 44.8 % (37-47) Mean Corpuscular Volume 90.5 fL (80-100) Mean Corpuscular Hemoglobin 31.1 pg (25-34) Mean Corpuscular Hemoglobin Concent 34.4 g/dl (32-36) Platelet Count 290 K/uL (130-400) Mean Platelet Volume 10.1 fL (7.4-10.4) Neutrophils (%) (Auto) 44.1 % Lymphocytes (%) (Auto) 39.6 % Monocytes (%) (Auto) 9.8 % Eosinophils (%) (Auto) 6.3 % Basophils (%) (Auto) 0.1 % Neutrophils # (Auto) 3.42 K/uL (1.4-6.5) Lymphocytes # (Auto) 3.07 K/uL (1.2-3.4) Monocytes # (Auto) 0.76 K/uL (0.11-0.59) Eosinophils # (Auto) 0.49 K/uL (0-0.5) Basophils # (Auto) 0.01 K/uL (0-0.2) RDW Standard Deviation 44.8 fL (36.4-46.3) RDW Coefficient of Variation 13.6 % (11.5-14.5) Immature Granulocyte % (Auto) 0.1 % Immature Granulocyte # (Auto) 0.01 K/uL (0.00-0.02) Urine Color YELLOW Urine Appearance CLOUDY (CLEAR) Urine pH 5.5 (4.5-7.5) Urine Specific Bullock 1.026 (1.000-1.030) Urine Protein NEG (NEG) Urine Glucose (UA) NEG (NEG) Urine Ketones NEG (NEG) Urine Occult Blood 1+ (NEG) Urine Nitrite NEG (NEG) Urine Bilirubin NEG (NEG) Urine Urobilinogen NEG (NEG) Urine Leukocyte Esterase NEG (NEG) Urine WBC (Auto) 1-5 /hpf (0-5) Urine RBC (Auto) 5-10 /hpf (0-4) Urine Hyaline Casts (Auto) 1-5 /lpf (0-5) Urine Epithelial Cells (Auto) >30 /lpf (0-5) Urine Bacteria (Auto) NEG (NEG) Urine Test NEG (NEG) Anion Gap 8.0 mmol/L (3-11) Est Creatinine Clear Calc Drug Dose 140.0 ml/min Estimated GFR () 135.5 Estimated GFR (Non- 116.9 BUN/Creatinine Ratio 15.2 (10-20) Calcium Level 9.0 mg/dl (8.5-10.1) Total Bilirubin 0.1 mg/dl (0.2-1) Aspartate Amino Transf (AST/SGOT) 10 U/L (15-37) Alanine Aminotransferase (ALT/SGPT) 22 U/L (12-78) Alkaline Phosphatase 64 U/L (45-117) Total Protein 8.2 gm/dl (6.4-8.2) Albumin 3.4 gm/dl (3.4-5.0) Globulin 4.8 gm/dl (2.5-4.0) Albumin/Globulin Ratio 0.7 (0.9-2) Lipase 136 U/L (73-393) Urine Opiates Screen NEG (NEG) Urine Methadone, Qualitative NEG (NEG) Urine Barbiturates NEG (NEG) Urine Phencyclidine (PCP) Level NEG (NEG) Ur Amphetamine/Methamphetamine NEG (NEG) MDMA (Ecstasy) Screen NEG (NEG) Urine Benzodiazepines Screen NEG (NEG) Urine Cocaine Metabolite NEG (NEG) Urine Marijuana (THC) NEG (NEG) Bedside Troponin I < 0.030 ng/ml (0-0.045) ED Course Physical exam and history were performed. Nursing notes, EMR, and Medication List were personally reviewed. Patient appears to reportedly had a seizure tonight. The patient is well-known to the department for frequency of visits. She is seen several times in the past following seizures. The patient does not appear post ictal at this time. She was cared for under seizure precautions. IV access was established and labs were obtained. The patient's blood work is as above and was reviewed. She does not have a significantly elevated white blood cell count, anemia, bandemia, or significant electrolyte imbalance. Transaminases are nondiagnostic. Urine is without evidence of infection. Drug screen was negative. Her remaining labs are unremarkable. The patient was monitored for some time here in the department. She did not have any recurrence or worsening of her symptoms. She was felt well for discharge home and is to continue her normal medications. She is to keep her follow-up appointment in 3 days with her neurologist, and was otherwise invited back to the ER with any new, worsening, or concerning symptoms. The chart was completed utilizing [employer] Speech Voice Recognition Software. Grammatical errors, random word insertions, pronoun errors, and incomplete sentences are an occasional consequence of this system due to software limitations, ambient noise, and hardware issues. Any formal questions or concerns about the content, text, or information contained within the body of this dictation should be directly addressed to the provider for clarification. . Medical Decision Differential diagnosis: Etiologies such as infection, hypoglycemia, electrolyte abnormalities, cardiac sources, intracerebral event, trauma, toxicologic, neurologic, as well as others were entertained. Impression Primary Impression: Seizure Departure Information Dispostion Home / Self-Care Condition GOOD Referrals Melissa Kolb D.O. (PCP) Forms HOME CARE DOCUMENTATION FORM, IMPORTANT VISIT INFORMATION Patient Instructions My [facility] Additional Instructions You were seen and evaluated today on an emergency basis only. This is not a substitute for, or an effort to provide, complete comprehensive medical care. It is not possible to recognize and treat all injuries or illnesses in a single emergency department visit. For this reason it is recommended that you followup with your neurologist for ongoing care and evaluation. Continue your at-home medications You are welcome to return to the emergency department anytime with new, worsening, or concerning symptoms.
== END 2017-10-14 03:15 | disposition home or self-care (01) ==
LOC: C.EDB 00:24
DX: R56.9 Unspecified convulsions (principal); J45.909 Unspecified asthma, uncomplicated; E03.9 Hypothyroidism, unspecified; Z79.3 Long term (current) use of hormonal contraceptives; Z87.891 Personal history of nicotine dependence; Z83.3 Family history of diabetes mellitus; Z83.79 Family history of other diseases of the digestive system; Z82.49 Family history of ischemic heart disease and other diseases of the circulatory system; Z82.0 Family history of epilepsy and other diseases of the nervous system

== ENCOUNTER 2017-10-18 11:20 | Emergency (ER) | payer OTHER ==
[2017-10-18 11:23] VITALS: TEMP 36.7
[2017-10-18] MEDS ORDERED: ALBUT/IPRATROP 3MG/0.5MG NEB 3 ML VIAL INH STA (12:03)
[2017-10-18] MEDS ORDERED: KPP/1000 PO (12:13)
[2017-10-18] MEDS ORDERED: PRED20TA2 PO (13:07)
[2017-10-18 13:27] VITALS: BP 133/81; PULSE 89; O2SAT 99
--- NOTE | 2017-10-18 16:27 | EMERGENCY ROOM VISIT NOTE ---
ED Visit Note First contact with patient: 11:50 Chief Complaint: I am having trouble breathing. History of Present Illness: Ms. Monahan is a 22-year-old white female who ambulates into the ED accompanied by a male friend complaining of difficulty breathing. Historically patient has a history of asthma and on September 24 she was admitted to this hospital for a right multifocal pneumonia on the right side including the right lower, middle and upper lobes. Additionally patient reports she has a seizure history and last night she had a seizure but did not come to the emergency department. She reports when she woke up this morning she noted that she was feeling short of breath and hearing herself wheeze. She used her inhaler and had no relief of her discomfort. She was seen in the [facility] clinic and reports an x-ray was done that showed resolution of her pneumonia. I was able to receive a copy of that assessment and that was confirmed. Currently patient is complaining of bilateral chest tightness, shortness of breath and wheezing. She rates her chest discomfort 6/10. Her pain is nonradiating. Her pain worsens with deep inspiration. She has not identified any alleviating factors related to the pain. She has not taken any medication for her pain but has previously noted did use her inhaler at home without relief of her discomfort of shortness of breath. She denies any associated symptoms including fevers, chills, sweats, cough, hemoptysis, other upper respiratory tract symptoms, abdominal pain, nausea, vomiting, previous clots, claudication, cramping, recent surgery/inactivity/ extended travel, tobacco and estrogen use. Review of Systems: As noted above in history of present illness. All body systems were reviewed and found to be negative as noted above. Past Medical History: As previously noted. Current Medications: Folate, control, levothyroxine, Prilosec, Lamictal, metoprolol, Pamelor and Keppra Allergies to Medications: Amoxicillin, hydromorphone, morphine and oxycodone. Social History: Patient is not employed; she feels safe in her home environment ; she denies tobacco and alcohol use. Physical Examination: Vital Signs: Date Time Temp Pulse Resp B/P (MAP) Pulse Ox O2 Delivery O2 Flow Rate FiO2 10/18/17 13:27 89 20 133/81 99 10/18/17 11:42 Room Air 10/18/17 11:23 36.7 98 20 134/83 98 Room Air GENERAL: 22-year-old female in mild respiratory distress, nontoxic-appearing, afebrile and hemodynamically stable. NEUROLOGICAL: Awake, alert and oriented to person, place and time. Answering questions appropriately and following commands. Normal gait. SKIN: Warm, dry and pink. No soft tissue eruptions or trauma noted. HEENT: Atraumatic and normocephalic. PERRLA. Sclera white and conjunctiva pink. No drainage from naris. Oral cavity moist and pink. Airway is patent. Uvula is midline and no abscesses were seen. Pharynx is nonerythematous or edematous. Speech soft but normal and clear. No lymphadenopathy. Trachea midline. No jugular venous distention. No auditory or auscultatory stridor. BACK: No tenderness over the bony spine. No CVA tenderness. THORAX: Lungs sounds are decreased bilaterally through all spencer with inspiratory and expiratory wheezing. No increase in respiratory effort or rate. Equal bilaterally with symmetrical chest wall. No rales or rhonchi. No crepitus, tenderness, subcutaneous air or deformities noted. HEART: Regular rate and rhythm. No gallops, rubs or murmurs are appreciated. ABDOMEN: Flat, soft and nontender. Positive bowel sounds in all quadrants. No guarding, rigidity or organomegaly. EXTREMITIES: Moves all extremities well on command and with purpose. All distal neurovascular statuses are intact and equal bilaterally. No calf tenderness or cords. ED Course: Patient is assessed as noted above. Patient's medication list was reviewed. Patient was given an albuterol/Atrovent nebulizer breathing treatment and 60 mg of prednisone by mouth. Patient was reassessed after her breathing treatment and she had resolution of all inspiratory and expiratory wheezing and improved air movement in all spencer. Subjectively she reported she was feeling much better but continued to have some chest tightness. Patient was educated about today's findings and instructed on her treatment plan ; she verbalized understanding and agreement with this plan. Clinical Impression: Asthma exacerbation. Disposition: Patient discharged home in stable condition accompanied by her ; prior to departure she was reassessed and subjectively reported she was still not experiencing any return of shortness of breath or wheezing. Plan: Patient was encouraged to use 2 puffs of her albuterol inhaler with spacer or a nebulizer breathing treatment of albuterol every 6 hours for 5 days and as needed for wheezing or shortness of breath. Patient was prescribed prednisone 60 mg once a day for 4 additional days. Patient was encouraged to follow-up with her primary care provider for recheck in 3-4 days. Patient was encouraged to return the ED for worsening shortness of breath/ wheezing, coughing up blood, fevers or any new/concerning symptoms.
== END 2017-10-18 13:15 | disposition home or self-care (01) ==
LOC: C.EDB 11:21 → C.EDC 13:15
DX: J45.901 Unspecified asthma with (acute) exacerbation (principal); R56.9 Unspecified convulsions; Z79.3 Long term (current) use of hormonal contraceptives; Z88.1 Allergy status to other antibiotic agents; Z88.5 Allergy status to narcotic agent; Z88.6 Allergy status to analgesic agent

== ENCOUNTER 2017-10-27 03:15 | Observation (INO) | payer OTHER ==
[~2017-10-27] VITALS: Ht 170.2 cm; Wt 102.9 kg
[2017-10-27] VITALS (8 sets, daily range): BP systolic 111–131; BP diastolic 62–79; PULSE 94–102; TEMP 36.5–36.7; O2SAT 94–97; Ht 170.2 cm; Wt 102.9 kg
[~2017-10-27 03:15] MED LIST changes: +KPP/1000 PO; -LEVE750T PO; +PRED20TA2 PO
[2017-10-27 03:49] LABS: ISTAT CREATININE 0.7 mg/dl (0.6-1.3); ISTAT IONIZED CALCIUM 1.2 mmol/l (1.12-1.32); ISTAT POTASSIUM 3.8 mEq/L (3.3-5.0)
[2017-10-27] MEDS ORDERED: SODIUM CHLORIDE 0.9% 1000ML 1,000 ML IV SCH (03:55)
[2017-10-27 04:03] LABS: BASO % 0.3 %; BASO ABS # 0.02 K/uL (0-0.2); EOS % 6.9 %; HEMATOCRIT 44.9 % (37-47); HEMOGLOBIN 15.5 g/dL (12.0-16.0); IG# 0.01 K/uL (0.00-0.02); LYMPH % 25.4 %; LYMPH ABS # 1.85 K/uL (1.2-3.4); MEAN CELL VOLUME 88.6 fL (80-100); MEAN CORPUSCULAR HEMOGLOBIN 30.6 pg (25-34); MEAN CORPUSCULAR HGB CONC 34.5 g/dl (32-36); MEAN PLATELET VOLUME 9.3 fL (7.4-10.4); MONO % 11.3 %; MONO ABS # 0.82 K/uL (0.11-0.59); NEUT ABS # 4.07 K/uL (1.4-6.5); PLATELET COUNT 285 K/uL (130-400); RED CELL DISTRIBUTION WIDTH CV 13.4 % (11.5-14.5); RED CELL DISTRIBUTION WIDTH SD 43.5 fL (36.4-46.3); WHITE BLOOD COUNT 7.27 K/uL (4.8-10.8)
[2017-10-27 04:09] LABS: PTT PATIENT 28.4 SECONDS (21.0-31.0)
[2017-10-27 04:11] LABS: BLOOD UREA NITROGEN 13 mg/dl (7-18); CALCIUM 9.2 mg/dl (8.5-10.1); CARBON DIOXIDE 26 mmol/L (21-32); CREATININE 0.78 mg/dl (0.60-1.20); GLUCOSE 97 mg/dl (70-99); POTASSIUM 3.7 mmol/L (3.5-5.1); SODIUM 138 mmol/L (136-145)
[2017-10-27] MEDS ORDERED: OPTIRAY 320 IV PRN (04:15)
--- NOTE | 2017-10-27 05:57 | EMERGENCY ROOM VISIT NOTE ---
History Report prepared by Milkaibe: Chantal Cuba Under the Supervision of: Dr. Jazmyn Palma M.D. First contact with patient: 03:18 Chief Complaint: STROKE SYMPTOMS Stated Complaint: SEIZURE/STROKE SYMPTOMS Nursing Triage Summary: Pt arrived via [facility] from home. Per EMS, pt took shower tonight around 0230. After shower, pt reported feeling dizzy and went to lay down. Pt reportedly had seziure that lasted approximately 5min. Pt has hx of seizures and pt has been to ER mutliple times recently for seizures. Post-seizure, pt reportedly had left sided facial numbess and droop. Left sided arm numbness and weakness and left sided leg numbness and paralysis. Pt also complaining of 7/10 headache pain. Pt reportedly has hx of previous stroke when pt was 16yo with no residual deficits. Hx of chronic tachycardia History of Present Illness The patient is a 22 year old female who presents to the Emergency Room with complaints of possible stroke symptoms. She was brought to the ED via EMS. EMS reports the patient took a shower this morning around 0230. After the shower, she began to feel dizzy and went to lay down. She reportedly had a seizure that lasted for "approximately 5 minutes". She has a history of previous seizures and has been seen here in the ED multiple times for them. After the seizure, she began to experience left sided facial numbness, left sided weakness and paralysis. She also complains of a headache, rating her pain as a 7/10 in severity. Source of History: patient, EMS Onset: 0230 this morning Position: other (global) Timing: constant Associated Symptoms: + headache, + weakness (left sided), + numbness (left sided facial numbness) Review of Systems See HPI for pertinent positives & negatives. A total of 10 systems reviewed and were otherwise negative. Past Medical & Surgical Medical Problems: (1) Acanthosis nigricans, acquired (2) Asthma (3) Dyslipidemia (4) Flu (5) GERD (gastroesophageal reflux disease) (6) Hospice care (7) Hypothyroidism (8) Inappropriate sinus tachycardia (9) Kidney stone (10) OAB (overactive bladder) (11) Ovarian cyst (12) PTSD (post-traumatic stress disorder) (13) Seizures (14) Sepsis (15) Vaginal delivery Surgical Problems: (1) H/O colonoscopy (2) H/O esophagogastroduodenoscopy (3) H/O foot surgery (4) S/P laparoscopic cholecystectomy (5) S/P removal of ovarian cyst (6) Status post Mohs surgery Family History Diabetes mellitus FATHER GRANDMOTHER FH: cancer FATHER FH: gallbladder disease FH: heart disease FH: seizures MOTHER Social History Smoking Status: Former Smoker Alcohol Use: none Drug Use: none Marital Status: single, in relationship Housing Status: lives with family Occupation Status: disabled Current/Historical Medications Scheduled Control Pills ( Control Pills), 1 TAB PO QAM Folic Acid (Folvite), 3 MG PO QAM Lamotrigine (Lamictal), 200 MG PO BID Levetiracetam (Keppra), 1,500 MG PO BID Levothyroxine Sodium (Levothyroxine Sodium), 50 MCG PO DAILY Metoprolol Succinate (Metoprolol Succinate ER), 25 MG PO DAILY Nortriptyline (Pamelor), 25 MG PO HS Omeprazole (Prilosec), 40 MG PO DAILY Scheduled PRN Acetaminophen (Tylenol), 1,000 MG PO Q6H PRN for Headache Albuterol Hfa (Ventolin Hfa), 2 PUFFS INH UD PRN for Asthma Symptoms Albuterol Sulf (Albuterol Sulfate), 2.5 MG NEB Q4H PRN for Shortness of Breath Allergies Coded Allergies: Hydromorphone (Verified Allergy, Severe, Respirations stopped., 10/27/17) Amoxicillin (Verified Allergy, Intermediate, RASH, 10/27/17) Morphine (Verified Allergy, Intermediate, HIVES, 10/27/17) Oxycodone (Verified Allergy, Intermediate, Hives, 10/27/17) Adhesives (Verified Adverse Reaction, Mild, RASH, 10/27/17) Physical Exam Vital Signs Date Time Temp Pulse Resp B/P (MAP) Pulse Ox O2 Delivery O2 Flow Rate FiO2 10/27/17 05:09 103 16 108/82 97 Room Air 10/27/17 04:01 147/84 10/27/17 04:00 103 27 99 10/27/17 03:46 132/83 10/27/17 03:45 92 21 96 10/27/17 03:41 109 10/27/17 03:25 98 Room Air 10/27/17 03:16 36.6 109 24 121/79 98 Room Air Physical Exam Vital signs reviewed. General: Disheveled-appearing 22 year old female, in no significant distress. HEENT: No scleral icterus, PERRLA, neck supple. Atraumatic. Cardiovascular: Regular rate and rhythm, no extra sounds. Pulmonary: Clear to auscultation bilaterally, normal work of breathing. Abdomen: Soft, nontender, nondistended, positive bowel sounds. Musculoskeletal: Atraumatic, no peripheral edema. Neurologic: Patient with a slight L nasolabial fold flattening, cranial nerves otherwise intact, 4/5 strength to LUE, 5/5 to the right. 3/5 strength to the LLE , able to hold her leg up against gravity for 5 counts. Skin: Warm, dry, no rash Medical Decision & Procedures ER Provider Diagnostic Interpretation: Radiology results as stated below per my review and radiologist interpretation: CTA HEAD Major intracranial vessels are patent. No aneurysms. Radiologist: Dr. Pamela Baum MD CTA NECK Venous contamination. Congenital variant left dominant vertebral artery. Carotid circulations are widely patent without high-grade stenosis or occlusion. Radiologist: Dr. Pamela Baum MD Laboratory Results Test 10/27/17 03:33 10/27/17 03:34 10/27/17 03:36 10/27/17 03:59 Bedside Prothrombin Time INR 1.0 (0.9-1.1) Bedside Glucose 99 mg/dl (70-90) Prothrombin Time 10.0 SECONDS (9.0-12.0) Prothromb Time International Ratio 1.0 (0.9-1.1) Activated Partial Thromboplast Time 28.4 SECONDS (21.0-31.0) Partial Thromboplastin Ratio 1.1 D-Dimer 250 ug/L FEU (0-500) Total Bilirubin 0.3 mg/dl (0.2-1) Direct Bilirubin < 0.1 mg/dl (0-0.2) Aspartate Amino Transf (AST/SGOT) 24 U/L (15-37) Alanine Aminotransferase (ALT/SGPT) 39 U/L (12-78) Alkaline Phosphatase 86 U/L (45-117) Total Creatine Kinase 44 U/L (26-192) Total Protein 8.2 gm/dl (6.4-8.2) Albumin 3.7 gm/dl (3.4-5.0) Lipase 89 U/L (73-393) Bedside Hemoglobin 16.3 g/dl (12.0-16.0) Bedside Hematocrit 48 % (37-47) Bedside Sodium 141 mEq/L (135-144) Bedside Potassium 3.8 mEq/L (3.3-5.0) Bedside Chloride 101 mEq/L (101-112) Bedside Total CO2 25 mEq/l (24-31) Bedside Blood Urea Nitrogen 14 mg/dl (7-18) Bedside Creatinine 0.7 mg/dl (0.6-1.3) Bedside Glucose (other) 97 mg/dl (70-99) Bedside Ionized Calcium (Shaggy) 1.20 mmol/l (1.12-1.32) Urine Opiates Screen NEG (NEG) Urine Methadone, Qualitative NEG (NEG) Urine Barbiturates NEG (NEG) Urine Phencyclidine (PCP) Level NEG (NEG) Ur Amphetamine/Methamphetamine NEG (NEG) MDMA (Ecstasy) Screen NEG (NEG) Urine Benzodiazepines Screen NEG (NEG) Urine Cocaine Metabolite NEG (NEG) Urine Marijuana (THC) NEG (NEG) Laboratory results per my review. Medications Administered Medications (Trade) Dose Ordered Sig/Miroslava Route Start Time Stop Time Status Last Admin Dose Admin Sodium Chloride 1,000 ml @ 50 mls/hr Q20H IV 10/27/17 03:55 10/27/17 06:36 DC 10/27/17 04:07 50 MLS/HR ECG Per My Interpretation Indication: weakness, other (seizure activity) Rate (beats per minute): 108 Rhythm: sinus tachycardia Findings: no acute ischemic change, other (QTc 477) ED Course 0331: Past medical records reviewed. The patient was evaluated in room B1. A complete history and physical examination was performed. 0355: NSS 1000 ml @ 50 mls/hr IV. 0506: I discussed the patients case with Dr. Francois, [facility] Hospitalist. The patient will be further evaluated. 0515: I reevaluated the patient. She is resting comfortably. I discussed my recommendation she remain in the hospital for further evaluation and management and she verbalized complete understanding and agreement. Medical Decision Differential diagnosis: Etiologies such as metabolic, infection, hypo/hyperglycemia, electrolyte abnormalities, cardiac sources, intracerebral event, toxicologic, neurologic, as well as others were entertained. This pt was evaluated and appeared to be in no distress. PE is c/w some L weakness. Symptoms seem to be improving. Mother describes a seizure, she has had a longstanding sz d/o. CT/CTA head and neck are negative. EKG reveals a NSR. Pt PE was improving over time. As her w/u is essentially negative and this is a pattern post-seizure for her, I did not think a stroke alert was warranted. Pt will be evaluated by the hospitalist service for further management. Medication Reconcilliation Current Medication List: was personally reviewed by me Blood Pressure Screening Patient's blood pressure: Elevated blood pressure Blood pressure disposition: Referred to PCP Consults Time Called: 0505 Consulting Physician: Eric Machuca Hospitalist Returned Call: 0506 I discussed the patients case with Eric Machuca [facility]. The patient will be further evaluated. Impression Primary Impression: Seizure Additional Impression: Left-sided weakness Scribe Attestation The scribe's documentation has been prepared under my direction and personally reviewed by me in its entirety. I confirm that the note above accurately reflects all work, treatment, procedures, and medical decision making performed by me. Departure Information Dispostion Being Evaluated By Hospitalist Prescriptions Levetiracetam (KEPPRA) 500 Mg Tab 1500 MG PO BID for 30 Days, #180 TAB 1 Refill Prov: Celio Sotelo MD 10/28/17 Referrals Melissa Kolb D.O. (PCP) Patient Instructions My [facility] Health Problem Qualifiers
[2017-10-27] MEDS ORDERED: LEVETIRACETAM 500 MG TAB PO ONE (06:15)
[2017-10-27 06:25] LABS: ALBUMIN 3.7 gm/dl (3.4-5.0); ALKALINE PHOSPHATASE 86 U/L (45-117); ALT/SGPT 39 U/L (12-78); AST/SGOT 24 U/L (15-37); LIPASE 89 U/L (73-393); TOTAL PROTEIN 8.2 gm/dl (6.4-8.2)
[2017-10-27] MEDS ORDERED: IV FLUIDS COMPLETED PRN (06:30)
--- NOTE | 2017-10-27 06:32 | DIAGNOSTIC IMAGING REPORT ---
CHEST ONE VIEW PORTABLE CLINICAL HISTORY: Chest pain. COMPARISON STUDY: Chest CT September 24, 2007 13 and chest radiograph October 11, 2017. FINDINGS: Lung volumes are mildly diminished. There is no pneumothorax or pleural effusion. There is no evidence for pulmonary edema. Cardiac size is normal. Mediastinal contours are normal. There is mild left lower lung interstitial thickening which may reflect an infectious process. IMPRESSION: Mild left lower lung interstitial thickening which favors an infectious process. Electronically signed by: Rohith Raphael M.D. 10/27/2017 6:31 AM Dictated Date/Time: 10/27/2017 6:29 AM
--- NOTE | 2017-10-27 06:40 | DIAGNOSTIC IMAGING REPORT ---
CT ANGIOGRAPHY OF THE NECK WITH CONTRAST CLINICAL HISTORY: Stroke alert. COMPARISON STUDY: No previous studies for comparison. Technique: CT angiography of the carotid and vertebral arteries was obtained using Wyzerr 320 IV and 3D reconstruction on an independent workstation. NASCET criteria was utilized. A dose lowering technique was utilized adhering to the principles of ALARA. Findings: The bilateral common carotid, internal carotid and vertebral arteries are patent. There is no dissection or stenosis within these vessels. The CTA of the head will be reported separately. The left vertebral artery is dominant. There is no cervical lymphadenopathy. There is mild mucosal thickening of the sinuses. Orbits are unremarkable. Mastoid air cells are clear. Epiglottis is normal. IMPRESSION: Unremarkable CTA of the neck. No stenosis. Electronically signed by: Rohith Raphael M.D. 10/27/2017 6:39 AM Dictated Date/Time: 10/27/2017 6:34 AM
--- NOTE | 2017-10-27 06:43 | DIAGNOSTIC IMAGING REPORT ---
CTA ANGIOGRAPHY OF THE HEAD CLINICAL HISTORY: Stroke alert. COMPARISON STUDY: Head CT October 11, 2017 and October 27, 2017. TECHNIQUE: Helical axial images of the head were obtained following uneventful intravenous administration of 93 cc of Optiray 320. A dose lowering technique was utilized adhering to the principles of ALARA. CT DOSE: 598.01 mGy.cm FINDINGS: The bilateral M1, M2, A1 and A2 segments are patent. Posterior circulation is intact. There is no intracranial aneurysm or abrupt vessel cut off. No acute hemorrhage is identified on this contrast enhanced study. Ventricular system is normal. Basilar cisterns are patent. There are no extra-axial collections. There is mild sinus mucosal thickening. Orbits are unremarkable. IMPRESSION: Unremarkable CTA of the head. Electronically signed by: Rohith Raphael M.D. 10/27/2017 6:42 AM Dictated Date/Time: 10/27/2017 6:40 AM
[2017-10-27] MEDS ORDERED: LORAZEPAM INJ 1 MG in SYRINGE 0.5 ML IV PRN ×2 (06:45→07:00)
[2017-10-27] MEDS ORDERED: LEVALBUTEROL/IPRATROPIUM NEB INH PRN (06:45)
[2017-10-27] MEDS ORDERED: PROCHLORPERAZINE INJ 5 MG in SYRINGE 4 ML IV PRN (06:45)
[2017-10-27] MEDS ORDERED: LORAZEPAM 2 MG/ML 1 ML VIAL IV PRN (06:45)
[2017-10-27] MEDS ORDERED: NITROGLYCERIN 0.4 MG SL PER TAB CHARGE SL PRN (06:45)
--- NOTE | 2017-10-27 06:59 | DIAGNOSTIC IMAGING REPORT ---
HEAD WITHOUT CONTRAST (CT) CT DOSE: HISTORY: Mental status change cva TECHNIQUE: Multiaxial CT images of the head were performed without the use of intravenous contrast. A dose lowering technique was utilized adhering to the principles of ALARA. Comparison: 11/08/2017 Findings: Mild mucosal thickening of the sinuses. The calvarium and skull base are intact. The ventricles and sulci are within normal limits. There is no mass, hematoma, midline shift, or acute infarct. Impression: No acute process. Mild mucosal thickening of the sinuses. The above report was generated using voice recognition software. It may contain grammatical, syntax or spelling errors. Electronically signed by: Blaise Oakes M.D. 10/27/2017 6:58 AM Dictated Date/Time: 10/27/2017 6:57 AM
[2017-10-27] MEDS ORDERED: NSS + 20MEQ KCL 1000ML 1,000 ML IV ONE (07:15)
[2017-10-27] MEDS: LEVOTHYROXINE 50 MCG TAB PO SCH (07:45)
[2017-10-27] MEDS: ENOXAPARIN 40 MG/0.4 ML SYR SC SCH (07:46)
[2017-10-27] MEDS: PANTOprazole SOD 40 MG TAB PO SCH (07:49)
[2017-10-27] MEDS: METOPROLOL SUCC 25MG EXT REL TAB PO SCH (07:50)
--- NOTE | 2017-10-27 08:39 | DIAGNOSTIC IMAGING REPORT ---
BRAIN W/O FOR SEIZURE CLINICAL HISTORY: L sided weakness mental status change TECHNIQUE: Multiaxial MRI acquisition COMPARISON STUDY: None FINDINGS: Signal characteristics are unremarkable throughout both cerebral hemispheres. Diffusion images are negative for an acute ischemic event. Ventricular system is midline. Internal auditory canals are symmetric. IMPRESSION: Negative study. The above report was generated using voice recognition software. It may contain grammatical, syntax or spelling errors. Electronically signed by: Blaise Oakes M.D. 10/27/2017 8:38 AM Dictated Date/Time: 10/27/2017 8:34 AM
--- NOTE | 2017-10-27 08:43 | DIAGNOSTIC IMAGING REPORT ---
MRA HEAD WITHOUT CONTRAST CLINICAL HISTORY: 22 years-old Female presenting with headaches, left-sided weakness, seizure, left leg weakness. TECHNIQUE: MR angiography of the head was performed without the use of intravenous contrast using 3-D [id number] technique. 3-D volumetric and/or maximum intensity projection (MIP) images were subsequently reconstructed for review. IV contrast: None. COMPARISON: CTA head performed earlier the same day. FINDINGS: Anterior circulation demonstrates patent intracranial portions of the internal carotid arteries. Anterior and middle cerebral arteries patent. Anterior communicating artery patent. Posterior circulation demonstrates left dominant vertebral artery. Both vertebral arteries contribute to the basilar artery, which is patent. Posterior inferior cerebellar, superior cerebellar, and posterior cerebral arteries patent. Anterior inferior cerebellar arteries poorly visualized. Aplastic or hypoplastic left posterior commuting artery though the right posterior commuting artery is patent. No evidence of aneurysm, focal vessel occlusion, or significant stenosis in the intracranial arteries. IMPRESSION: 1. No evidence of aneurysm, focal vessel occlusion, or significant stenosis in the intracranial arteries. Electronically signed by: Jose Braden M.D. 10/27/2017 8:42 AM Dictated Date/Time: 10/27/2017 8:39 AM
--- NOTE | 2017-10-27 09:29 | HISTORY & PHYSICAL EXAMINATION ---
DATE OF ADMISSION: 10/27/2017 PRIMARY CARE DOCTOR. Melissa Kolb DO. CHIEF COMPLAINT: Seizures. HISTORY OF PRESENT ILLNESS: History obtained from patient, family, and records. Medical history significant for history of mixed seizure disorder, history of PE status post Coumadin, ongoing tobacco abuse, asthma, hypothyroidism, History of TIA as per records. Recent confinement last September 2017 for multifocal pneumonia. Patient has had seizures since she was 15 years old. As per patient mother has a mixed seizure disorder (real ones and pseudoseizures as per mother). Since July weekly breakthrough seizures. Patient seen at [facility] clinic on follow up about 2 weeks ago. Seizure specialist referral at [facility] earliest would be January 2018. Seizure meds adjusted as per patient. Yesterday, the patient had a pseudoseizure which mother characterizes as patient's ability to talk during episode. Transient diarrheal illness, flu-like illness the last few days. After taking a shower this morning, after playing cards, she was noted by family to have grand mal seizures, for about a few minutes. Unresponsive for a few minutes after episode. Urinary incontinence noted. No tongue biting. Left-sided facial, arm and leg weakness after episode - transient symptoms she's has had once after an episode when she was 15 years old. Patient complaining of achy frontal headache symptoms. Compliant with medications. Patient complaining of substernal pain, nonpleuritic. No cough symptoms. Brought to Emergency Room. MEDICAL HISTORY: As above. SURGERIES: Skin surgery, bunion removal, some bone reconstruction, gallbladder, cholecystectomy. HOME MEDICATIONS: Include Levothyroxine, Lamictal, metoprolol, Pamelor, Prilosec, Ventolin, Tylenol, control pills, Folvite, Keppra. ALLERGIES: ADHESIVES, AMOXICILLIN, HYDROMORPHONE, MORPHINE, OXYCODONE. FAMILY HISTORY: Seizures. PERSONAL AND SOCIAL HISTORY: Few cigarettes a day. No chronic intake of alcoholic beverages. Applied for disability. REVIEW OF SYSTEMS: As per HPI. All 10 systems reviewed. All other ROS negative. PHYSICAL EXAMINATION: VITAL SIGNS: Blood pressure was noted to be 130/80, pulse rate 103, RR 16, temperature 36.6, sats 98 on room air. GENERAL: Noted to be obese, slightly uncomfortable. No respiratory distress. SKIN: Normal color, warm. HEENT: Hensley palpebral conjunctiva. No ptosis. Dry mucosa. Facial asymmetry on the left. NECK: Short, supple. CHEST: Decreased effort. No tenderness. HEART: Regular rate and rhythm, no murmur. ABDOMEN: Some distention, tender. EXTREMITIES: No edema. No gross deformity. No tenderness. NEUROLOGIC: Coherent. Some lip symmetry. MMTs left upper extremity about 3/5, on the left lower extremity about 1/5. LABORATORY DATA Hemoglobin was noted to be 15.5, hematocrit 40.1, white blood cell count 9, platelets 285. Sodium noted to be 138, potassium 3.7, chloride 103, CO2 26, BUN 30, creatinine 0.7. Glucose was noted to be 97. Troponin negative. D-dimer was normal. CTA head, no acute pathology as per initial read. Chest x-ray as per my interpretation atelectasis. EKG as per my interpretation, rate 110, sinus tachycardia, no ischemia. ASSESSMENT: 1. Breakthrough seizures history of mixed seizure/pseudoseizure DSO suboptimal control since July, 2. Left-sided weakness possible postictal Pedro's palsy rule out stroke. History of mini stroke as per family. 3. History of PE status post Coumadin 4. ongoing tobacco abuse . PLAN: Observation PCU, neuro checks. MRI/MRA of the brain RE L sided weakness Seizure precautions. Ativan as needed Continue home AED regimen Neurology consult, breakthrough seizures, L sided weakness ([place] [facility] Patient counseled on stopping smoking. DVT prophylaxis, Lovenox subQ. Full code. MTDD
--- NOTE | 2017-10-27 14:47 | Neurology Consultation ---
Neurology Consultation Date of Consultation: Oct 27, 2017. Attending Physician: Celio Sotelo MD Primary Care Physician: Melissa Kolb D.O. Reason for Consultation: recurrent seizures, L sided paralysis History of Present Illness Source: patient Pallavi is a 22 year old with a PMH: mixed seizure, disorder, history of PE status post Coumadin, ongoing tobacco abuse, asthma, hypothyroidism. September 2017 for multifocal pneumonia. She has had seizures since she was 15 years old. According to chart and [facility] office note review mixed seizure disorder. Since July weekly breakthrough seizures, She was seen at our neurology clinic 10/18/2017 by Jamie Borrego NP and was seen previously by Dr Dominique. She was referred to seizure specialist but is not scheduled until January 2018. Her seizure medication at that visit was increased to 1000 mg BID. She has a history of pseudoseizure which she has the ability to talk during episode. She was playing cards and mom reports she had a tonic clonic seizure and was unresponsive for a few minutes. During this epsiode she had a headache after and left-sided weakness which has happened in the past. She state she is compliant with her meds and labs from [facility] office visit showed levels were therapeutic. She is also complaining of substernal pain nonpleuritic. No cough symptoms. She has stopped smoking but has developed some cough and wheezing over the past few days. denies current CP, SOB, abdominal pain, N, V, +left sided weakness, numbness LE. no current headache. Past Medical/Surgical History Medical Problems: (1) Abdominal pain Status: Acute (2) Asthma exacerbation Status: Acute (3) Asthmatic bronchitis Status: Acute (4) Chest pain Status: Acute (5) Chest pain Status: Acute (6) Dehydration Status: Acute (7) Encounter for smoking cessation counseling Status: Acute (8) Exacerbation of asthma Status: Acute (9) Failure of outpatient treatment Status: Acute (10) Frequent seizures Status: Acute (11) Influenza Status: Acute (12) Influenza A Status: Acute (13) Influenza A Status: Acute (14) Left lower quadrant pain Status: Acute (15) Left upper lobe pneumonia Status: Acute (16) Pelvic pain Status: Acute (17) Pelvic pain Status: Acute (18) PNA (pneumonia) Status: Acute (19) Pneumonia Status: Acute (20) R10.31 Status: Acute (21) Right lower quadrant abdominal pain Status: Acute (22) Seizure Status: Acute (23) Seizure Status: Acute (24) Seizure Status: Acute (25) Symptoms of cerebrovascular accident (CVA) Status: Acute (26) Tachycardia Status: Acute (27) UTI (urinary tract infection) Status: Acute Social History Smoking Status: Former smoker (stopped 1 month ago ) Drug Use: none Marital Status: single, in relationship Housing Status: lives with family Occupation Status: disabled Allergies Coded Allergies: Hydromorphone (Verified Allergy, Severe, Respirations stopped., 10/27/17) Amoxicillin (Verified Allergy, Intermediate, RASH, 10/27/17) Morphine (Verified Allergy, Intermediate, HIVES, 10/27/17) Oxycodone (Verified Allergy, Intermediate, Hives, 10/27/17) Adhesives (Verified Adverse Reaction, Mild, RASH, 10/27/17) Current Inpatient Medications Current Inpatient Medications Medications (Trade) Dose Ordered Sig/Miroslava Route Start Time Stop Time Status Last Admin Dose Admin Ioversol (Optiray 320) 100 ml UD PRN IV 10/27/17 04:15 10/31/17 04:14 Lamotrigine (Lamictal Tab) 200 mg BID PO 10/27/17 21:00 11/26/17 20:59 Levetiracetam (Keppra Tab) 1,000 mg BID PO 10/27/17 21:00 11/26/17 20:59 Miscellaneous (Iv Fluids Completed) 1 ea PRN PRN N/A 10/27/17 06:30 10/27/18 06:29 Enoxaparin Sodium (Lovenox Inj) 40 mg Q24H SC 10/27/17 08:00 11/26/17 07:59 10/27/17 07:46 40 MG Potassium Chloride/Sodium Chloride 1,000 ml @ 75 mls/hr [id number] ONCE IV 10/27/17 07:15 10/27/17 20:34 10/27/17 08:38 75 MLS/HR Acetaminophen (Tylenol Tab) 650 mg Q4H PRN PO 10/27/17 06:45 11/26/17 06:44 Nitroglycerin (Nitrostat Tab) 0.4 mg UD PRN SL 10/27/17 06:45 11/26/17 06:44 Lorazepam 1 mg/ Syringe 1 ml @ 0.5 mls/min Q5M PRN IV 10/27/17 06:45 11/26/17 06:44 Lorazepam (Ativan Inj) 0.5 mg Q4H PRN IV 10/27/17 06:45 11/26/17 06:44 10/27/17 07:25 0.5 MG Folic Acid (Folvite Tab) 3 mg QAM PO 10/27/17 09:00 11/26/17 08:59 10/27/17 07:49 3 MG Levothyroxine Sodium (Synthroid Tab) 50 mcg DAILYBB PO 10/27/17 07:00 11/26/17 06:59 10/27/17 07:45 50 MCG Metoprolol Succinate (Toprol Xl Tab) 25 mg DAILY PO 10/27/17 09:00 11/26/17 08:59 10/27/17 07:50 25 MG Nortriptyline HCl (Pamelor Cap) 25 mg HS PO 10/27/17 21:00 11/26/17 20:59 Pantoprazole Sodium (Protonix Tab) 40 mg QAM PO 10/27/17 09:00 11/26/17 08:59 10/27/17 07:49 40 MG Prochlorperazine Edisylate 5 mg/ Syringe 5 ml @ 5 mls/min Q6H PRN IV 10/27/17 06:45 11/26/17 06:44 Ipratropium [place] (Atrovent 0.02% 0.5MG/2.5ML Neb) 0.5 mg Q4R PRN INH 10/27/17 07:00 11/26/17 06:59 Levalbuterol (Xopenex 1.25MG/ 0.5ML Neb) 1.25 mg Q4R PRN INH 10/27/17 07:00 11/26/17 06:59 Lorazepam 1 mg/ Syringe 1 ml @ 1 mls/min Q4H PRN IV 10/27/17 07:00 11/26/17 06:59 Physical Exam Vital Signs (Past 24 Hrs): Date Time Temp Pulse Resp B/P (MAP) Pulse Ox O2 Delivery O2 Flow Rate FiO2 10/27/17 12:00 Room Air 10/27/17 12:00 36.5 102 18 111/72 (85) 97 Room Air 10/27/17 08:00 Room Air 10/27/17 07:30 36.6 98 20 128/79 97 Room Air 10/27/17 07:24 96 10/27/17 06:32 102 18 113/66 97 Room Air 10/27/17 05:09 103 16 108/82 97 Room Air 10/27/17 04:01 147/84 10/27/17 04:00 103 27 99 10/27/17 03:46 132/83 10/27/17 03:45 92 21 96 10/27/17 03:41 109 10/27/17 03:25 98 Room Air 10/27/17 03:16 36.6 109 24 121/79 98 Room Air Physical Exam: Constitutional: appearance nourished, healthy and obese Ears, Nose, Mouth and Throat: mucous membranes moist, no injection and skin normal, eyes normal Cardiovascular: normal S-1 and S-2 and regular rate and rhythm Respiratory: course breath sound bilaterally wheezing Musculoskeletal: no peripheral edema and good distal pulses Skin: no stigmata of neurocutaneous disease noted and normal and intact Eyes: extraocular muscles intact (EOMI) and pupils equal, round and reactive to light (PERRL), miotic NEUROLOGIC EXAMINATION: Mental status: Alert and interactive Oriented to full date and location Oriented to person Speech fluent with no evidence of aphasia Cranial Nerves smile symmetric, eye brow raise symmetric tongue midline Reflexes: Deep tendon reflexes were symmetrical and graded 2/5. Plantar responses were flexor. Sensory: decrease sensation to vibration, GT proprioception intact Coordination: Romberg present with eyes open Gait/Stance: Posture sitting bedside, stands with assistance, gait unsteady Motor: Negative for pronator drift of out stretched arms with eyes closed. Strength: hand business development biceps triceps 5/5 bilaterally hip flex plantar flex ext 5/5 bilaterally Laboratory Results Past 24 Hours: 10/27/17 03:34 Red Blood Count 5.07, Mean Corpuscular Volume 88.6, Mean Corpuscular Hemoglobin 30.6, Mean Corpuscular Hemoglobin Concent 34.5, Mean Platelet Volume 9.3, Neutrophils (%) (Auto) 56.0, Lymphocytes (%) (Auto) 25.4, Monocytes (%) (Auto) 11.3, Eosinophils (%) (Auto) 6.9, Basophils (%) (Auto) 0.3, Neutrophils # (Auto ) 4.07, Lymphocytes # (Auto) 1.85, Monocytes # (Auto) 0.82, Eosinophils # (Auto ) 0.50, Basophils # (Auto) 0.02 10/27/17 03:34 Test 10/27/17 03:33 10/27/17 03:34 10/27/17 03:36 10/27/17 03:59 Bedside Prothrombin Time INR 1.0 (0.9-1.1) Bedside Glucose 99 mg/dl (70-90) White Blood Count 7.27 K/uL (4.8-10.8) Red Blood Count 5.07 M/uL (4.2-5.4) Hemoglobin 15.5 g/dL (12.0-16.0) Hematocrit 44.9 % (37-47) Mean Corpuscular Volume 88.6 fL (80-100) Mean Corpuscular Hemoglobin 30.6 pg (25-34) Mean Corpuscular Hemoglobin Concent 34.5 g/dl (32-36) Platelet Count 285 K/uL (130-400) Mean Platelet Volume 9.3 fL (7.4-10.4) Neutrophils (%) (Auto) 56.0 % Lymphocytes (%) (Auto) 25.4 % Monocytes (%) (Auto) 11.3 % Eosinophils (%) (Auto) 6.9 % Basophils (%) (Auto) 0.3 % Neutrophils # (Auto) 4.07 K/uL (1.4-6.5) Lymphocytes # (Auto) 1.85 K/uL (1.2-3.4) Monocytes # (Auto) 0.82 K/uL (0.11-0.59) Eosinophils # (Auto) 0.50 K/uL (0-0.5) Basophils # (Auto) 0.02 K/uL (0-0.2) RDW Standard Deviation 43.5 fL (36.4-46.3) RDW Coefficient of Variation 13.4 % (11.5-14.5) Immature Granulocyte % (Auto) 0.1 % Immature Granulocyte # (Auto) 0.01 K/uL (0.00-0.02) Prothrombin Time 10.0 SECONDS (9.0-12.0) Prothromb Time International Ratio 1.0 (0.9-1.1) Activated Partial Thromboplast Time 28.4 SECONDS (21.0-31.0) Partial Thromboplastin Ratio 1.1 D-Dimer 250 ug/L FEU (0-500) Est Creatinine Clear Calc Drug Dose 142.3 ml/min Estimated GFR () 125.1 Estimated GFR (Non- 107.9 BUN/Creatinine Ratio 16.4 (10-20) Calcium Level 9.2 mg/dl (8.5-10.1) Magnesium Level 2.1 mg/dl (1.8-2.4) Total Bilirubin 0.3 mg/dl (0.2-1) Direct Bilirubin < 0.1 mg/dl (0-0.2) Aspartate Amino Transf (AST/SGOT) 24 U/L (15-37) Alanine Aminotransferase (ALT/SGPT) 39 U/L (12-78) Alkaline Phosphatase 86 U/L (45-117) Total Creatine Kinase 44 U/L (26-192) Total Protein 8.2 gm/dl (6.4-8.2) Albumin 3.7 gm/dl (3.4-5.0) Lipase 89 U/L (73-393) Bedside Hemoglobin 16.3 g/dl (12.0-16.0) Bedside Hematocrit 48 % (37-47) Bedside Sodium 141 mEq/L (135-144) Bedside Potassium 3.8 mEq/L (3.3-5.0) Bedside Chloride 101 mEq/L (101-112) Bedside Total CO2 25 mEq/l (24-31) Anion Gap 20.0 mmol/L (16-25) Bedside Blood Urea Nitrogen 14 mg/dl (7-18) Bedside Creatinine 0.7 mg/dl (0.6-1.3) Bedside Glucose (other) 97 mg/dl (70-99) Bedside Ionized Calcium (Shaggy) 1.20 mmol/l (1.12-1.32) Urine Opiates Screen NEG (NEG) Urine Methadone, Qualitative NEG (NEG) Urine Barbiturates NEG (NEG) Urine Phencyclidine (PCP) Level NEG (NEG) Ur Amphetamine/Methamphetamine NEG (NEG) MDMA (Ecstasy) Screen NEG (NEG) Urine Benzodiazepines Screen NEG (NEG) Urine Cocaine Metabolite NEG (NEG) Urine Marijuana (THC) NEG (NEG) Test 10/27/17 09:05 10/27/17 09:54 Urine Color YELLOW Urine Appearance CLEAR (CLEAR) Urine pH 6.0 (4.5-7.5) Urine Specific [place] > 1.045 (1.000-1.030) Urine Protein NEG (NEG) Urine Glucose (UA) NEG (NEG) Urine Ketones NEG (NEG) Urine Occult Blood 1+ (NEG) Urine Nitrite NEG (NEG) Urine Bilirubin NEG (NEG) Urine Urobilinogen NEG (NEG) Urine Leukocyte Esterase NEG (NEG) Urine WBC (Auto) 1-5 /hpf (0-5) Urine RBC (Auto) 5-10 /hpf (0-4) Urine Hyaline Casts (Auto) 1-5 /lpf (0-5) Urine Epithelial Cells (Auto) >30 /lpf (0-5) Urine Bacteria (Auto) NEG (NEG) Urine Test NEG (NEG) Troponin I < 0.015 ng/ml (0-0.045) Imaging CTA neck -Unremarkable CTA of the neck. No stenosis. CTA head- Unremarkable CTA of the head. MRA head- . No evidence of aneurysm, focal vessel occlusion, or significant stenosis in the intracranial arteries. Impression 22 year old female with seizure/pseudoseizure events Plan 1. continue current seizure medications, Keppra 1000mg bid increase to 1500 mg BID and lamictal 200 mg BID 2. will need either 72 hours EEG or inpatient monitoring to evaluate and observe reported events 3. seizure precautions 4. PT/OT for discharge needs 5. currently on pamelor which can decrease seizure threshold I have seen and discussed above patient with Dr Lisset Chirinos, neurology Pt seen and examined. Mild LLE weakness. No tongue laceration. Had pseudosz 2 nights ago and then sz today. Parents report eyes rolled back. Shaking, flopping arching back. Tongue biting. Labs, nml wbc and nml CK. Hx of an abnl eeg in past cw primary genl epilepsy. Agree with increasing Keppra dose. Unclear if recent sz is pseudo. Pt will need sz monitoring. Camryn VALENZUELA had a prelim discussion with Ricardo lenz potential transfer and they felt it was not emergently needed as this has been ongoing. Weakness post-ictal? MRI brain nml. Will follow with you. Ok to dc in am if no sz. ISABEL Chirinos MD
[2017-10-27] MEDS: IPRATROPIUM BROMIDE NEB SOLN 0.02% 2.5 ML VIAL INH PRN (17:03)
[2017-10-27] MEDS: LEVALBUTEROL 1.25MG/0.5ML NEB INH PRN (17:04)
--- NOTE | 2017-10-27 17:54 | Progress Note ---
Internal Med Progress Note Date of Service: Oct 27, 2017. Provider Documentation: SUBJECTIVE: Seen and examined at bedside Headache is improving No seizure activity since hospitalization Denies chest pain, SOB No other complaints OBJECTIVE: Vital Signs-as noted below Physical Exam: General Appearance:Moderately built and nourished, no apparent distress Head: normocephalic, Atraumatic Eyes: normal inspection, EOMI, PERRL Neck: supple, Trachea midline Respiratory/Chest: Normal breath sounds, CTA Cardiovascular: S1, S2, No murmur, +Tachycardia Abdomen/GI:Soft, Non tender, Bowel sounds present Extremities/Musculoskelatal:normal inspection, no edema Neurologic/Psych:AAOX3, grossly no focal neurological deficits Skin: normal color, warm Lab data as noted below. ASSESSMENT & PLAN: Seizure/? pseudoseizure Continue Keppra, Lamictal (Keppra increased to 1500mg BID) Imaging studies Negative Appreciate Neurology Input May need 72 Hr EEG/Inpatient monitoring seizure precautions H/O Asthma: No signs of exacerbation Nebs PRN H/O PE status post Coumadin not on Coumadin currently Ongoing tobacco abuse . counseled on stopping smoking. DVT Px: Lovenox SQ Code Status: Full code Vital Signs: Date Time Temp Pulse Resp B/P (MAP) Pulse Ox O2 Delivery O2 Flow Rate FiO2 10/27/17 17:04 94 16 94 Room Air 10/27/17 16:00 36.7 18 129/62 (84) 96 Room Air 10/27/17 16:00 Room Air 10/27/17 12:00 Room Air 10/27/17 12:00 36.5 102 18 111/72 (85) 97 Room Air 10/27/17 08:00 Room Air 10/27/17 07:30 36.6 98 20 128/79 97 Room Air 10/27/17 07:24 96 10/27/17 06:32 102 18 113/66 97 Room Air 10/27/17 05:09 103 16 108/82 97 Room Air 10/27/17 04:01 147/84 10/27/17 04:00 103 27 99 10/27/17 03:46 132/83 10/27/17 03:45 92 21 96 10/27/17 03:41 109 10/27/17 03:25 98 Room Air 10/27/17 03:16 36.6 109 24 121/79 98 Room Air Lab Results: Results Past 24 Hours Test 10/27/17 03:33 10/27/17 03:34 10/27/17 03:36 10/27/17 03:59 Range/Units Bedside Prothrombin Time INR 1.0 0.9-1.1 Bedside Glucose 99 70-90 mg/dl White Blood Count 7.27 4.8-10.8 K/uL Red Blood Count 5.07 4.2-5.4 M/uL Hemoglobin 15.5 12.0-16.0 g/dL Hematocrit 44.9 37-47 % Mean Corpuscular Volume 88.6 80-100 fL Mean Corpuscular Hemoglobin 30.6 25-34 pg Mean Corpuscular Hemoglobin Concent 34.5 32-36 g/dl Platelet Count 285 130-400 K/uL Mean Platelet Volume 9.3 7.4-10.4 fL Neutrophils (%) (Auto) 56.0 % Lymphocytes (%) (Auto) 25.4 % Monocytes (%) (Auto) 11.3 % Eosinophils (%) (Auto) 6.9 % Basophils (%) (Auto) 0.3 % Neutrophils # (Auto) 4.07 1.4-6.5 K/uL Lymphocytes # (Auto) 1.85 1.2-3.4 K/uL Monocytes # (Auto) 0.82 0.11-0.59 K/uL Eosinophils # (Auto) 0.50 0-0.5 K/uL Basophils # (Auto) 0.02 0-0.2 K/uL RDW Standard Deviation 43.5 36.4-46.3 fL RDW Coefficient of Variation 13.4 11.5-14.5 % Immature Granulocyte % (Auto) 0.1 % Immature Granulocyte # (Auto) 0.01 0.00-0.02 K/uL Prothrombin Time 10.0 9.0-12.0 SECONDS Prothromb Time International Ratio 1.0 0.9-1.1 Activated Partial Thromboplast Time 28.4 21.0-31.0 SECONDS Partial Thromboplastin Ratio 1.1 D-Dimer 250 0-500 ug/L FEU Sodium Level 138 136-145 mmol/L Potassium Level 3.7 3.5-5.1 mmol/L Chloride Level 103 98-107 mmol/L Carbon Dioxide Level 26 21-32 mmol/L Anion Gap 9.0 20.0 16-25 mmol/L Blood Urea Nitrogen 13 7-18 mg/dl Creatinine 0.78 0.60-1.20 mg/dl Est Creatinine Clear Calc Drug Dose 142.3 ml/min Estimated GFR () 125.1 Estimated GFR (Non- 107.9 BUN/Creatinine Ratio 16.4 10-20 Random Glucose 97 70-99 mg/dl Calcium Level 9.2 8.5-10.1 mg/dl Magnesium Level 2.1 1.8-2.4 mg/dl Total Bilirubin 0.3 0.2-1 mg/dl Direct Bilirubin < 0.1 0-0.2 mg/dl Aspartate Amino Transf (AST/SGOT) 24 15-37 U/L Alanine Aminotransferase (ALT/SGPT) 39 12-78 U/L Alkaline Phosphatase 86 45-117 U/L Total Creatine Kinase 44 26-192 U/L Troponin I < 0.015 0-0.045 ng/ml Total Protein 8.2 6.4-8.2 gm/dl Albumin 3.7 3.4-5.0 gm/dl Lipase 89 73-393 U/L Bedside Hemoglobin 16.3 12.0-16.0 g/dl Bedside Hematocrit 48 37-47 % Bedside Sodium 141 135-144 mEq/L Bedside Potassium 3.8 3.3-5.0 mEq/L Bedside Chloride 101 101-112 mEq/L Bedside Total CO2 25 24-31 mEq/l Bedside Blood Urea Nitrogen 14 7-18 mg/dl Bedside Creatinine 0.7 0.6-1.3 mg/dl Bedside Glucose (other) 97 70-99 mg/dl Bedside Ionized Calcium (Shaggy) 1.20 1.12-1.32 mmol/l Urine Opiates Screen NEG NEG Urine Methadone, Qualitative NEG NEG Urine Barbiturates NEG NEG Urine Phencyclidine (PCP) Level NEG NEG Ur Amphetamine/Methamphetamine NEG NEG MDMA (Ecstasy) Screen NEG NEG Urine Benzodiazepines Screen NEG NEG Urine Cocaine Metabolite NEG NEG Urine Marijuana (THC) NEG NEG Test 10/27/17 09:05 10/27/17 09:54 Range/Units Urine Color YELLOW Urine Appearance CLEAR CLEAR Urine pH 6.0 4.5-7.5 Urine Specific [place] > 1.045 1.000-1.030 Urine Protein NEG NEG Urine Glucose (UA) NEG NEG Urine Ketones NEG NEG Urine Occult Blood 1+ NEG Urine Nitrite NEG NEG Urine Bilirubin NEG NEG Urine Urobilinogen NEG NEG Urine Leukocyte Esterase NEG NEG Urine WBC (Auto) 1-5 0-5 /hpf Urine RBC (Auto) 5-10 0-4 /hpf Urine Hyaline Casts (Auto) 1-5 0-5 /lpf Urine Epithelial Cells (Auto) >30 0-5 /lpf Urine Bacteria (Auto) NEG NEG Urine Test NEG NEG Troponin I < 0.015 0-0.045 ng/ml
[2017-10-27] MEDS: ACETAMINOPHEN 325 MG TAB PO PRN (20:28)
[2017-10-27] MEDS ORDERED: LEVETIRACETAM 500 MG TAB PO SCH (21:00)
[2017-10-27] MEDS ORDERED: NORTRIPTYLINE HCL 25 MG CAP PO SCH (21:00)
[2017-10-27] MEDS: LEVETIRACETAM 500 MG TAB PO SCH (21:47)
[2017-10-28] VITALS (8 sets, daily range): BP systolic 101–114; BP diastolic 65–80; PULSE 77–90; TEMP 36.4–36.9; O2SAT 94–97
[2017-10-28] MEDS: ACETAMINOPHEN 325 MG TAB PO PRN (00:36)
[2017-10-28] MEDS: LEVALBUTEROL 1.25MG/0.5ML NEB INH PRN (05:37)
[2017-10-28] MEDS: IPRATROPIUM BROMIDE NEB SOLN 0.02% 2.5 ML VIAL INH PRN (05:37)
[2017-10-28 05:43] LABS: HEMATOCRIT 40.3 % (37-47); HEMOGLOBIN 13.6 g/dL (12.0-16.0); MEAN CELL VOLUME 88.8 fL (80-100); MEAN CORPUSCULAR HGB CONC 33.7 g/dl (32-36); MEAN PLATELET VOLUME 9.2 fL (7.4-10.4); PLATELET COUNT 236 K/uL (130-400); RED CELL DISTRIBUTION WIDTH CV 13.3 % (11.5-14.5); RED CELL DISTRIBUTION WIDTH SD 43.3 fL (36.4-46.3); WHITE BLOOD COUNT 4.37 K/uL (4.8-10.8)
[2017-10-28] MEDS: LEVOTHYROXINE 50 MCG TAB PO SCH (05:56)
[2017-10-28 06:22] LABS: CALCIUM 8.6 mg/dl (8.5-10.1); CREATININE 0.69 mg/dl (0.60-1.20); POTASSIUM 3.8 mmol/L (3.5-5.1)
[2017-10-28 06:50] LABS: BASO % 0.2 %; BASO ABS # 0.01 K/uL (0-0.2); EOS % 9.4 %; EOS ABS # 0.41 K/uL (0-0.5); IG# 0.01 K/uL (0.00-0.02); LYMPH % 51.7 %; LYMPH ABS # 2.26 K/uL (1.2-3.4); MONO % 15.1 %; MONO ABS # 0.66 K/uL (0.11-0.59); NEUT % 23.4 %; NEUT ABS # 1.02 K/uL (1.4-6.5)
[2017-10-28] MEDS: ENOXAPARIN 40 MG/0.4 ML SYR SC SCH (07:50)
[2017-10-28] MEDS: LEVETIRACETAM 500 MG TAB PO SCH (07:50)
[2017-10-28] MEDS: PANTOprazole SOD 40 MG TAB PO SCH (07:50)
[2017-10-28] MEDS: METOPROLOL SUCC 25MG EXT REL TAB PO SCH (07:50)
--- NOTE | 2017-10-28 12:56 | Neurology Progress Notes ---
Neurology Progress Note Date of Service Oct 28, 2017. Canelo Olivo is a 22 year old with a PMH: mixed seizure, disorder, history of PE status post Coumadin, ongoing tobacco abuse, asthma, hypothyroidism. September 2017 for multifocal pneumonia. She has had seizures since she was 15 years old. According [place] [facility] [place] mixed seizure disorder. Since July weekly breakthrough seizures, She was seen at our neurology clinic 10/18/2017 by Jamie Borrego NP and was seen previously by Dr Dominique. She was referred to seizure specialist but is not scheduled until January 2018. Her seizure medication at that visit was increased to 1000 mg BID. She has a history of pseudoseizure which she has the ability to talk during episode. She was playing cards and mom reports she had a tonic clonic seizure and was unresponsive for a few minutes. During this epsiode she had a headache after and left-sided weakness which has happened in the past. She state she is compliant with her meds and labs [place] [facility] [place] showed levels were therapeutic. She is also complaining of substernal pain nonpleuritic. No cough symptoms. She has stopped smoking but has developed some cough and wheezing over the past few days. She states she is doing better today. She had no additional seizures over night. Discussed her increase to 1500 mg BID and she voices an understanding. denies current CP, SOB, abdominal pain, N, V, +left sided weakness, numbness LE. no current headache. Objective Date Time Temp Pulse Resp B/P (MAP) Pulse Ox O2 Delivery O2 Flow Rate FiO2 10/28/17 11:47 36.7 82 20 101/65 (77) 97 Room Air 10/28/17 08:28 96 Room Air 10/28/17 08:00 Room Air 10/28/17 07:22 36.4 87 18 114/80 (91) 97 Room Air 10/28/17 05:37 90 16 94 Room Air 10/28/17 05:33 36.9 77 17 106/73 (84) 97 Room Air 10/28/17 04:00 Room Air 10/28/17 00:17 36.6 84 19 109/74 (86) 96 Room Air 10/28/17 00:00 Room Air 10/27/17 20:30 Room Air 10/27/17 20:30 96 Room Air 10/27/17 20:15 36.6 94 18 113/73 (86) 96 Room Air 10/27/17 19:58 36.5 98 18 131/70 (90) 97 10/27/17 19:58 Room Air 10/27/17 19:57 36.7 94 16 94 10/27/17 17:04 94 16 94 Room Air 10/27/17 16:00 36.7 18 129/62 (84) 96 Room Air 10/27/17 16:00 Room Air Last 24 Hours Test 10/28/17 05:18 White Blood Count 4.37 K/uL Red Blood Count 4.54 M/uL Hemoglobin 13.6 g/dL Hematocrit 40.3 % Mean Corpuscular Volume 88.8 fL Mean Corpuscular Hemoglobin 30.0 pg Mean Corpuscular Hemoglobin Concent 33.7 g/dl Platelet Count 236 K/uL Mean Platelet Volume 9.2 fL Neutrophils (%) (Auto) 23.4 % Lymphocytes (%) (Auto) 51.7 % Monocytes (%) (Auto) 15.1 % Eosinophils (%) (Auto) 9.4 % Basophils (%) (Auto) 0.2 % Neutrophils # (Auto) 1.02 K/uL Lymphocytes # (Auto) 2.26 K/uL Monocytes # (Auto) 0.66 K/uL Eosinophils # (Auto) 0.41 K/uL Basophils # (Auto) 0.01 K/uL RDW Standard Deviation 43.3 fL RDW Coefficient of Variation 13.3 % Immature Granulocyte % (Auto) 0.2 % Immature Granulocyte # (Auto) 0.01 K/uL Red Blood Cell Morphology Unremarkable Sodium Level 138 mmol/L Potassium Level 3.8 mmol/L Chloride Level 107 mmol/L Carbon Dioxide Level 25 mmol/L Anion Gap 6.0 mmol/L Blood Urea Nitrogen 11 mg/dl Creatinine 0.69 mg/dl Est Creatinine Clear Calc Drug Dose 160.9 ml/min Estimated GFR () 143.2 Estimated GFR (Non- 123.6 BUN/Creatinine Ratio 16.7 Random Glucose 91 mg/dl Calcium Level 8.6 mg/dl Magnesium Level 1.9 mg/dl Imaging: MRI brain- normal study MRA brain- No evidence of aneurysm, focal vessel occlusion, or significant stenosis in the intracranial arteries. Exam: Physical Exam: Constitutional: appearance nourished, healthy and obese Ears, Nose, Mouth and Throat: mucous membranes moist, no injection and skin normal, eyes normal Cardiovascular: normal S-1 and S-2 and regular rate and rhythm Respiratory: clear to auscultation (CTA) and no rales, rhonchi or wheeze Musculoskeletal: no peripheral edema and good distal pulses Skin: no stigmata of neurocutaneous disease noted and normal and intact Eyes: extraocular muscles intact (EOMI) and pupils equal, round and reactive to light (PERRL) NEUROLOGIC EXAMINATION: Mental status: Alert and interactive Oriented to full date and location Oriented to person Speech fluent with no evidence of aphasia Cranial Nerves smile eye brow raise symmetric Reflexes: Deep tendon reflexes were symmetrical and graded 2/5. Plantar responses were flexor. Coordination: finger to nose with no bi pass Gait/Stance: Posture sitting up in bed Motor: Negative for pronator drift of out stretched arms with eyes closed. Strength: biceps triceps right 5/5 , left 4/5 poor effort, hip flex bilaterall 5/5, plantar flex ext L 4/5, R 5/5 Current Inpatient Medications Medications (Trade) Dose Ordered Sig/Miroslava Route Start Time Stop Time Status Last Admin Dose Admin Ioversol (Optiray 320) 100 ml UD PRN IV 10/27/17 04:15 10/31/17 04:14 Lamotrigine (Lamictal Tab) 200 mg BID PO 10/27/17 21:00 11/26/17 20:59 10/28/17 07:50 200 MG Miscellaneous (Iv Fluids Completed) 1 ea PRN PRN N/A 10/27/17 06:30 10/27/18 06:29 Enoxaparin Sodium (Lovenox Inj) 40 mg Q24H SC 10/27/17 08:00 11/26/17 07:59 10/28/17 07:50 40 MG Acetaminophen (Tylenol Tab) 650 mg Q4H PRN PO 10/27/17 06:45 11/26/17 06:44 10/28/17 00:36 650 MG Nitroglycerin (Nitrostat Tab) 0.4 mg UD PRN SL 10/27/17 06:45 11/26/17 06:44 Lorazepam 1 mg/ Syringe 1 ml @ 0.5 mls/min Q5M PRN IV 10/27/17 06:45 11/26/17 06:44 Lorazepam (Ativan Inj) 0.5 mg Q4H PRN IV 10/27/17 06:45 11/26/17 06:44 10/27/17 07:25 0.5 MG Folic Acid (Folvite Tab) 3 mg QAM PO 10/27/17 09:00 11/26/17 08:59 10/28/17 07:50 3 MG Levothyroxine Sodium (Synthroid Tab) 50 mcg DAILYBB PO 10/27/17 07:00 11/26/17 06:59 10/28/17 05:56 50 MCG Metoprolol Succinate (Toprol Xl Tab) 25 mg DAILY PO 10/27/17 09:00 11/26/17 08:59 10/28/17 07:50 25 MG Nortriptyline HCl (Pamelor Cap) 25 mg HS PO 10/27/17 21:00 11/26/17 20:59 10/27/17 21:48 25 MG Pantoprazole Sodium (Protonix Tab) 40 mg QAM PO 10/27/17 09:00 11/26/17 08:59 10/28/17 07:50 40 MG Prochlorperazine Edisylate 5 mg/ Syringe 5 ml @ 5 mls/min Q6H PRN IV 10/27/17 06:45 11/26/17 06:44 Ipratropium [place] (Atrovent 0.02% 0.5MG/2.5ML Neb) 0.5 mg Q4R PRN INH 10/27/17 07:00 11/26/17 06:59 10/28/17 05:37 0.5 MG Levalbuterol (Xopenex 1.25MG/ 0.5ML Neb) 1.25 mg Q4R PRN INH 10/27/17 07:00 11/26/17 06:59 10/28/17 05:37 1.25 MG Lorazepam 1 mg/ Syringe 1 ml @ 1 mls/min Q4H PRN IV 10/27/17 07:00 11/26/17 06:59 Levetiracetam (Keppra Tab) 1,500 mg BID PO 10/27/17 21:00 11/26/17 20:59 10/28/17 07:50 1,500 MG Impression 22 year old female with seizure/pseudoseizure events Plan 1. continue current seizure medications, Keppra 1000mg bid increase to 1500 mg BID and lamictal 200 mg BID 2. will need either 72 hours EEG or inpatient monitoring to evaluate and observe reported events will arrange at follow up 3. seizure precautions 4. PT/OT for discharge needs- discharging with cane 5. currently on pamelor which can decrease seizure threshold 6. ok to discharge from neurology stand point, no overnight seizure reported. will arrange either 72 hour or inpatient obs for seizure activity 7. MRI with no evidence of stroke or MRA -aneurysm or vascular malformation neurology 2-[address] Jonas Dominique or Lisset Raya PAC schedule Discussed above patient with Dr Lisset Chirinos, neurology ISABEL Chirinos MD
[2017-10-28] MEDS ORDERED: LEVE500T13 PO (15:17)
--- NOTE | 2017-10-28 16:08 | Progress Note ---
Internal Med Progress Note Date of Service: Oct 28, 2017. Provider Documentation: SUBJECTIVE: Seen and examined at bedside Doing well today No seizure activity since hospitalized Denies chest pain, SOB No other complaints OBJECTIVE: Vital Signs-as noted below Physical Exam: General Appearance:Moderately built and nourished, no apparent distress Head: normocephalic, Atraumatic Eyes: normal inspection, EOMI, PERRL Neck: supple, Trachea midline Respiratory/Chest: Normal breath sounds, CTA Cardiovascular: S1, S2, No murmur Abdomen/GI:Soft, Non tender, Bowel sounds present Extremities/Musculoskelatal:normal inspection, no edema Neurologic/Psych:AAOX3, grossly no focal neurological deficits Skin: normal color, warm Lab data as noted below. ASSESSMENT & PLAN: Seizure/? pseudoseizure Continue Keppra, Lamictal (Keppra increased to 1500mg BID) Imaging studies Negative Appreciate Neurology Input May need 72 Hr EEG as outpatient seizure precautions H/O Asthma: No signs of exacerbation Nebs PRN H/O PE status post Coumadin not on Coumadin currently Ongoing tobacco abuse . counseled on stopping smoking. DVT Px: Lovenox SQ Code Status: Full code Disposition: Plan to discharge home today Follow up with your PCP on November 02, 2017 at 9:25am Follow up with your Neurologist in 2-3 weeks Use Cane for ambulation as suggested by Physical therapy Seek immediate medical attention if your symptoms reoccur or worsen Vital Signs: Date Time Temp Pulse Resp B/P (MAP) Pulse Ox O2 Delivery O2 Flow Rate FiO2 10/28/17 12:00 Room Air 10/28/17 11:47 36.7 82 20 101/65 (77) 97 Room Air 10/28/17 08:28 96 Room Air 10/28/17 08:00 Room Air 10/28/17 07:22 36.4 87 18 114/80 (91) 97 Room Air 10/28/17 05:37 90 16 94 Room Air 10/28/17 05:33 36.9 77 17 106/73 (84) 97 Room Air 10/28/17 04:00 Room Air 10/28/17 00:17 36.6 84 19 109/74 (86) 96 Room Air 10/28/17 00:00 Room Air 10/27/17 20:30 Room Air 10/27/17 20:30 96 Room Air 10/27/17 20:15 36.6 94 18 113/73 (86) 96 Room Air 10/27/17 19:58 36.5 98 18 131/70 (90) 97 10/27/17 19:58 Room Air 10/27/17 19:57 36.7 94 16 94 10/27/17 17:04 94 16 94 Room Air 10/27/17 16:00 36.7 18 129/62 (84) 96 Room Air 10/27/17 16:00 Room Air Lab Results: Results Past 24 Hours Test 10/28/17 05:18 Range/Units White Blood Count 4.37 4.8-10.8 K/uL Red Blood Count 4.54 4.2-5.4 M/uL Hemoglobin 13.6 12.0-16.0 g/dL Hematocrit 40.3 37-47 % Mean Corpuscular Volume 88.8 80-100 fL Mean Corpuscular Hemoglobin 30.0 25-34 pg Mean Corpuscular Hemoglobin Concent 33.7 32-36 g/dl Platelet Count 236 130-400 K/uL Mean Platelet Volume 9.2 7.4-10.4 fL Neutrophils (%) (Auto) 23.4 % Lymphocytes (%) (Auto) 51.7 % Monocytes (%) (Auto) 15.1 % Eosinophils (%) (Auto) 9.4 % Basophils (%) (Auto) 0.2 % Neutrophils # (Auto) 1.02 1.4-6.5 K/uL Lymphocytes # (Auto) 2.26 1.2-3.4 K/uL Monocytes # (Auto) 0.66 0.11-0.59 K/uL Eosinophils # (Auto) 0.41 0-0.5 K/uL Basophils # (Auto) 0.01 0-0.2 K/uL RDW Standard Deviation 43.3 36.4-46.3 fL RDW Coefficient of Variation 13.3 11.5-14.5 % Immature Granulocyte % (Auto) 0.2 % Immature Granulocyte # (Auto) 0.01 0.00-0.02 K/uL Red Blood Cell Morphology Unremarkable Sodium Level 138 136-145 mmol/L Potassium Level 3.8 3.5-5.1 mmol/L Chloride Level 107 98-107 mmol/L Carbon Dioxide Level 25 21-32 mmol/L Anion Gap 6.0 3-11 mmol/L Blood Urea Nitrogen 11 7-18 mg/dl Creatinine 0.69 0.60-1.20 mg/dl Est Creatinine Clear Calc Drug Dose 160.9 ml/min Estimated GFR () 143.2 Estimated GFR (Non- 123.6 BUN/Creatinine Ratio 16.7 10-20 Random Glucose 91 70-99 mg/dl Calcium Level 8.6 8.5-10.1 mg/dl Magnesium Level 1.9 1.8-2.4 mg/dl
--- NOTE | 2017-10-28 16:08 | Discharge Summary ---
Discharge Summary Date of Service Oct 28, 2017. Discharge Summary Admission Date: Oct 27, 2017 at 06:12 Discharge Date: Oct 28, 2017 Discharge Disposition: Home Principal Diagnosis: Seizure Procedures: MRI Brain: Negative study. Head MRA: No evidence of aneurysm, focal vessel occlusion, or significant stenosis in the intracranial arteries. CXR: Mild left lower lung interstitial thickening which favors an infectious process. Consultations: Neurology Pending Studies/Follow-Up: Follow up with your PCP on November 02, 2017 at 9:25am Follow up with your Neurologist in 2-3 weeks Use Cane for ambulation as suggested by Physical therapy Seek immediate medical attention if your symptoms reoccur or worsen Medication Reconciliation New Medications: Levetiracetam (Keppra) 500 Mg Tab 1500 MG PO BID for 30 Days, #180 TAB 1 Refill Continued Medications: Acetaminophen (Tylenol) 500 Mg Tab 1000 MG PO Q6H PRN for Headache, TAB Albuterol Hfa (Ventolin Hfa) 200 Puffs/79675 Mcg Aers 2 PUFFS INH UD PRN for Asthma Symptoms Albuterol Sulf (Albuterol Sulfate) 2.5 Mg/0.5 Ml Nebu 2.5 MG NEB Q4H PRN for Shortness of Breath Control Pills ( Control Pills) Tab 1 TAB PO QAM, TAB Folic Acid (Folvite) 1 Mg Tab 3 MG PO QAM, TAB Lamotrigine (Lamictal) 200 Mg Tab 200 MG PO BID, TAB Levothyroxine Sodium (Levothyroxine Sodium) 50 Mcg Tab 50 MCG PO DAILY, TAB Metoprolol Succinate (Metoprolol Succinate ER) 25 Mg Tabcr 25 MG PO DAILY Nortriptyline (Pamelor) 25 Mg Cap 25 MG PO HS, CAP Omeprazole (Prilosec) 40 Mg Cap 40 MG PO DAILY, CAP Discontinued Medications: Levetiracetam (Keppra) 1,000 Mg Tab 1000 MG PO BID Admission Information HPI (per Admitting provider): CHIEF COMPLAINT: Seizures. HISTORY OF PRESENT ILLNESS: History obtained from patient, family, and records. Medical history significant for history of mixed seizure disorder, history of PE status post Coumadin, ongoing tobacco abuse, asthma, hypothyroidism, History of TIA as per records. Recent confinement last September 2017 for multifocal pneumonia. Patient has had seizures since she was 15 years old. As per patient mother has a mixed seizure disorder (real ones and pseudoseizures as per mother). Since July weekly breakthrough seizures. Patient seen at [facility] Neurology clinic on follow up about 2 weeks ago. Seizure specialist referral at [facility] earliest would be January 2018. Seizure meds adjusted as per patient. Yesterday, the patient had a pseudoseizure which mother characterizes as patient's ability to talk during episode. Transient diarrheal illness, flu-like illness the last few days. After taking a shower this morning, after playing cards, she was noted by family to have grand mal seizures, for about a few minutes. Unresponsive for a few minutes after episode. Urinary incontinence noted. No tongue biting. Left-sided facial, arm and leg weakness after episode - transient symptoms she's has had once after an episode when she was 15 years old. Patient complaining of achy frontal headache symptoms. Compliant with medications. Patient complaining of substernal pain, nonpleuritic. No cough symptoms. Brought to Emergency Room. Physical Exam (per Admitting): PHYSICAL EXAMINATION: VITAL SIGNS: Blood pressure was noted to be 130/80, pulse rate 103, RR 16, temperature 36.6, sats 98 on room air. GENERAL: Noted to be obese, slightly uncomfortable. No respiratory distress. SKIN: Normal color, warm. HEENT: [place] palpebral conjunctiva. No ptosis. Dry mucosa. Facial asymmetry on the left. NECK: Short, supple. CHEST: Decreased effort. No tenderness. HEART: Regular rate and rhythm, no murmur. ABDOMEN: Some distention, tender. EXTREMITIES: No edema. No gross deformity. No tenderness. NEUROLOGIC: Coherent. Some lip symmetry. MMTs left upper extremity about 3/5, on the left lower extremity about 1/5. Hospital Course Seizure/? pseudoseizure Continue Keppra, Lamictal (Keppra increased to 1500mg BID) Imaging studies Negative Appreciate Neurology Input May need 72 Hr EEG as outpatient seizure precautions H/O Asthma: No signs of exacerbation Nebs PRN H/O PE status post Coumadin not on Coumadin currently Ongoing tobacco abuse . counseled on stopping smoking. DVT Px: Lovenox SQ Code Status: Full code Disposition: Plan to discharge home today Follow up with your PCP on November 02, 2017 at 9:25am Follow up with your Neurologist in 2-3 weeks Use Cane for ambulation as suggested by Physical therapy Seek immediate medical attention if your symptoms reoccur or worsen Total time spent on discharge = This includes examination of the patient, discharge planning, medication reconciliation, and communication with other providers. Discharge Instructions Discharge Instructions Date of Service Oct 28, 2017. Admission Reason for Admission: Seizure Discharge Discharge Diagnosis / Problem: Seizure Discharge Goals Goal(s): Decrease discomfort, Improve function Activity Recommendations Activity Limitations: resume your previous activity Exercise/Sports Limitations: as tolerated . Instructions / Follow-Up Instructions / Follow-Up Follow up with your PCP on November 02, 2017 at 9:25am Follow up with your Neurologist in 2-3 weeks Use Cane for ambulation as suggested by Physical therapy Seek immediate medical attention if your symptoms reoccur or worsen Current Hospital Diet Patient's current hospital diet: Regular Diet Discharge Diet Recommended Diet: Regular Diet Pending Studies Studies pending at discharge: no Laboratory Results Hemoglobin A1c Test 09/25/17 02:47 Range/Units Estimated Average Glucose 85 mg/dl Hemoglobin A1c 4.6 4.5-5.6 % Medical Emergencies . Who to Call and When: Medical Emergencies: If at any time you feel your situation is an emergency, please call 911 immediately. . Non-Emergent Contact Non-Emergency issues call your: Primary Care Provider, Neurologist Call Non-Emergent contact if: you have a fever, your pain is not controlled, your pain is worsening, your pain is unusual for you, your pain is concerning you, you have any medication questions Seek immediate medical attention if your symptoms reoccur or worsen . . "Provider Documentation" section prepared by Celio Sotelo. . <Electronically signed by Celio Sotelo MD> Signed: 10/28/17 1603 Signed: The status of this report is Signed * If report status is Draft, the document has not been finalized by the responsible provider.
== END 2017-10-28 16:05 | disposition home or self-care (01) ==
LOC: EDBD 03:15 → C.EDB 03:16 → C.EDINP 06:12 → ENRESERV 19:22 → C.MED 20:18
PROVIDERS: ADMIT Internal Medicine; ATTEND Internal Medicine
DX: G40.909 Epilepsy, unspecified, not intractable, without status epilepticus (principal); J45.909 Unspecified asthma, uncomplicated; E03.9 Hypothyroidism, unspecified; F17.210 Nicotine dependence, cigarettes, uncomplicated; F43.10 Post-traumatic stress disorder, unspecified; E78.5 Hyperlipidemia, unspecified; K21.9 Gastro-esophageal reflux disease without esophagitis; Z86.711 Personal history of pulmonary embolism; Z87.01 Personal history of pneumonia (recurrent); Z88.5 Allergy status to narcotic agent; Z88.0 Allergy status to penicillin; Z86.73 Personal history of transient ischemic attack (TIA), and cerebral infarction without residual deficits; Z90.49 Acquired absence of other specified parts of digestive tract; Z87.442 Personal history of urinary calculi; Z79.3 Long term (current) use of hormonal contraceptives; Z82.0 Family history of epilepsy and other diseases of the nervous system; Z83.3 Family history of diabetes mellitus; Z82.49 Family history of ischemic heart disease and other diseases of the circulatory system

== ENCOUNTER 2017-11-24 15:10 | Emergency (ER) | payer OTHER ==
[~2017-11-24] VITALS: Ht 170.2 cm; Wt 107.2 kg
[~2017-11-24 15:10] MED LIST changes: -ACET-1256 PO; -BCPILLS PO; -FOLI1TAB8 PO; -KPP/1000 PO; +LEVE500T13 PO; -NORT25CA PO; -PRED20TA2 PO; -RRALBUTNEB NEB; -TPRSR/25 PO; -VNTHFA/IN INH
[2017-11-24 15:27] VITALS: TEMP 36.7; Ht 170.2 cm; Wt 107.2 kg
--- NOTE | 2017-11-24 15:33 | EMERGENCY ROOM VISIT NOTE ---
History Report prepared by Santosh: Junior Joaquin Under the Supervision of: Dr. Chinedu Palacios M.D. First contact with patient: 15:19 Stated Complaint: SEIZURE History of Present Illness The patient is a 22 year old female with a history of seizures vs pseudoseizures who presents to the Emergency Room via EMS with complaints of seizure episodes that occurred around a half hour ago. Per the patient's mother , the patient had 2 seizures prior to arrival and then went into a "mini-stroke again", as the patient had a mini-stroke in October. The patient was just sitting around talking before the episodes, and then started having convulsions. She was pulled flat onto the couch so the patient would not hurt herself. The patient was in the hospital in [facility], and had extensive testing, including an MRI , MRA, and CTA, which were all negative. Per the patient's mother, the patient was sent to [facility], but did not have an EEG done there. Per the nursing staff, the patient has just started having twitching of her left side of her face that just started while in the room. The patient has been taking all her medications, including her Keppra and Lamictal. She notes no chance of . Source of History: patient, parent, nursing staff Onset: A half hour ago Position: other (global) Symptom Intensity: 2 of them Quality: other (seizures) Timing: other (episode) Note: Associated symptoms: Mini-stroke. Twitching of face. Review of Systems See HPI for pertinent positives and negatives. A total of ten systems were reviewed and were otherwise negative. Past Medical & Surgical Medical Problems: (1) Acanthosis nigricans, acquired (2) Asthma (3) Dyslipidemia (4) Flu (5) GERD (gastroesophageal reflux disease) (6) Hospice care (7) Hypothyroidism (8) Inappropriate sinus tachycardia (9) Kidney stone (10) OAB (overactive bladder) (11) Ovarian cyst (12) PTSD (post-traumatic stress disorder) (13) Seizures (14) Sepsis (15) Vaginal delivery Surgical Problems: (1) H/O colonoscopy (2) H/O esophagogastroduodenoscopy (3) H/O foot surgery (4) S/P laparoscopic cholecystectomy (5) S/P removal of ovarian cyst (6) Status post Mohs surgery Family History Diabetes mellitus FATHER GRANDMOTHER FH: cancer FATHER FH: gallbladder disease FH: heart disease FH: seizures MOTHER Social History Smoking Status: Current Some Day Smoker Alcohol Use: none Drug Use: none Marital Status: single, in relationship Housing Status: lives with family Occupation Status: disabled Current/Historical Medications Scheduled Control Pills ( Control Pills), 1 TAB PO QAM Folic Acid (Folvite), 3 MG PO QAM Lamotrigine (Lamictal), 200 MG PO BID Lamotrigine (Lamictal), 2.5 TAB PO BID Levetiracetam (Keppra), 500 MG PO BID Levetiracetam (Keppra), 1,000 MG PO BID Levothyroxine Sodium (Levothyroxine Sodium), 50 MCG PO DAILY Metoprolol Succinate (Metoprolol Succinate ER), 25 MG PO DAILY Nortriptyline (Pamelor), 25 MG PO HS Omeprazole (Prilosec), 40 MG PO DAILY Scheduled PRN Acetaminophen (Tylenol), 1,000 MG PO Q6H PRN for Headache Albuterol Hfa (Ventolin Hfa), 2 PUFFS INH UD PRN for Asthma Symptoms Albuterol Sulf (Albuterol Sulfate), 2.5 MG NEB Q4H PRN for Shortness of Breath Allergies Coded Allergies: Hydromorphone (Verified Allergy, Severe, Respirations stopped., 10/27/17) Amoxicillin (Verified Allergy, Intermediate, RASH, 10/27/17) Morphine (Verified Allergy, Intermediate, HIVES, 10/27/17) Oxycodone (Verified Allergy, Intermediate, Hives, 10/27/17) Adhesives (Verified Adverse Reaction, Mild, RASH, 10/27/17) Physical Exam Vital Signs Date Time Temp Pulse Resp B/P (MAP) Pulse Ox O2 Delivery O2 Flow Rate FiO2 11/24/17 17:04 93 11/24/17 16:01 94 18 119/78 95 Room Air 11/24/17 15:27 36.7 92 18 119/78 95 Room Air 11/24/17 15:23 95 Physical Exam Physical Exam GENERAL: She is oriented to person, place, and time. She appears well- developed and well-nourished. She does not appear distressed. ____ HENT: Exam performed. Head: Normocephalic and atraumatic. Right Ear: External ear normal. No mastoid tenderness. Left Ear: External ear normal. No mastoid tenderness. Mouth/Throat: The oropharynx is clear and moist. No trismus in the jaw. No dental abscesses or uvula swelling. No oropharyngeal exudate or tonsillar abscesses. ____ EYES: Conjunctivae and EOM are normal. Pupils are equal, round, and reactive to light. Right eye exhibits no discharge. Left eye exhibits no discharge. No scleral icterus. ____ NECK: Normal range of motion. Neck supple. No JVD present. No spinous process tenderness present. No carotid bruit present. No rigidity. No tracheal deviation and normal range of motion present. No Brudzinski's sign and no Kernig 's sign noted. ____ CV: Normal rate, regular rhythm, normal heart sounds and intact distal pulses. There is no peripheral edema. Palpable radial pulses bue. ____ PULM/CHEST: Effort normal and breath sounds normal. No respiratory distress. No stridor. She has no wheezes. She has no rales. Chest Wall: She exhibits no tenderness. ____ ABD: The abdomen is soft. Bowel sounds are normal. She has no distension. No mass is present. There is no tenderness. There is no rebound, no guarding, no Davenport's sign and no tenderness at McBurney's point. Rovsig negative MUSC/SKEL: Normal range of motion. There is no peripheral edema, tenderness or deformity. LYMPH: No cervical adenopathy. ____ NEURO: She is alert and oriented to person, place, and time. Patient has twitching to the left side of her mouth. She stops twitching when asked questions or when asked to smile. No facial droop. Strength 4/5 bilateral upper and lower extremities. SKIN: Skin is warm and dry. She is not diaphoretic. ____ PSYCH: She has a normal mood and affect. She behavior is normal. Judgment and thought content normal. ____ Medical Decision & Procedures ER Provider Diagnostic Interpretation: CT: Radiology results as stated below per my review and radiologist interpretation CT OF THE HEAD WITHOUT CONTRAST CLINICAL HISTORY: Seizure. COMPARISON STUDY: Head CT and MRI of the brain October 27, 2017. CT DOSE: 638.56 mGycm TECHNIQUE: Helical axial images of the head were obtained without IV contrast. Automated exposure control was utilized for the study. A dose lowering technique was utilized adhering to the principles of ALARA. FINDINGS: No acute intracranial hemorrhage, midline shift or mass effect is present. Ventricular system is normal. Basilar cisterns are patent. No extra-axial collections are present. Jimenez-white differentiation is maintained. There are no findings to suggest acute dural sinus thrombosis or acute territorial infarct. There are no significant calvarial abnormalities. Visualized portions of the sinuses and mastoid air cells are clear with the exception of minimal mucosal thickening of the ethmoid sinuses. IMPRESSION: No acute intracranial findings. Electronically signed by: Rohith Raphael M.D. 11/24/2017 4:42 PM Dictated Date/Time: 11/24/2017 4:37 PM Laboratory Results 11/24/17 16:19 Red Blood Count 4.82, Mean Corpuscular Volume 86.9, Mean Corpuscular Hemoglobin 29.9, Mean Corpuscular Hemoglobin Concent 34.4, Mean Platelet Volume 9.3, Neutrophils (%) (Auto) 45.4, Lymphocytes (%) (Auto) 33.8, Monocytes (%) (Auto) 8.1, Eosinophils (%) (Auto) 12.1, Basophils (%) (Auto) 0.4, Neutrophils # (Auto ) 3.86, Lymphocytes # (Auto) 2.88, Monocytes # (Auto) 0.69, Eosinophils # (Auto ) 1.03, Basophils # (Auto) 0.03 11/24/17 16:19 Test 11/24/17 13:45 11/24/17 15:38 11/24/17 16:19 Urine Color YELLOW Urine Appearance CLEAR (CLEAR) Urine pH 6.5 (4.5-7.5) Urine Specific [place] 1.021 (1.000-1.030) Urine Protein NEG (NEG) Urine Glucose (UA) NEG (NEG) Urine Ketones NEG (NEG) Urine Occult Blood TRACE (NEG) Urine Nitrite NEG (NEG) Urine Bilirubin NEG (NEG) Urine Urobilinogen NEG (NEG) Urine Leukocyte Esterase NEG (NEG) Urine WBC (Auto) 1-5 /hpf (0-5) Urine RBC (Auto) 0-4 /hpf (0-4) Urine Hyaline Casts (Auto) 0 /lpf (0-5) Urine Epithelial Cells (Auto) >30 /lpf (0-5) Urine Bacteria (Auto) NEG (NEG) Urine Test NEG (NEG) Bedside Glucose 86 mg/dl (70-90) White Blood Count 8.51 K/uL (4.8-10.8) Red Blood Count 4.82 M/uL (4.2-5.4) Hemoglobin 14.4 g/dL (12.0-16.0) Hematocrit 41.9 % (37-47) Mean Corpuscular Volume 86.9 fL (80-100) Mean Corpuscular Hemoglobin 29.9 pg (25-34) Mean Corpuscular Hemoglobin Concent 34.4 g/dl (32-36) Platelet Count 294 K/uL (130-400) Mean Platelet Volume 9.3 fL (7.4-10.4) Neutrophils (%) (Auto) 45.4 % Lymphocytes (%) (Auto) 33.8 % Monocytes (%) (Auto) 8.1 % Eosinophils (%) (Auto) 12.1 % Basophils (%) (Auto) 0.4 % Neutrophils # (Auto) 3.86 K/uL (1.4-6.5) Lymphocytes # (Auto) 2.88 K/uL (1.2-3.4) Monocytes # (Auto) 0.69 K/uL (0.11-0.59) Eosinophils # (Auto) 1.03 K/uL (0-0.5) Basophils # (Auto) 0.03 K/uL (0-0.2) RDW Standard Deviation 44.2 fL (36.4-46.3) RDW Coefficient of Variation 13.9 % (11.5-14.5) Immature Granulocyte % (Auto) 0.2 % Immature Granulocyte # (Auto) 0.02 K/uL (0.00-0.02) Anion Gap 6.0 mmol/L (3-11) Est Creatinine Clear Calc Drug Dose 134.0 ml/min Estimated GFR () 116.0 Estimated GFR (Non- 100.1 BUN/Creatinine Ratio 16.4 (10-20) Calcium Level 8.8 mg/dl (8.5-10.1) Prolactin 5.88 ng/mL Laboratory results reviewed by oh ED Course 1520: The patient's EMR was reviewed - the patient was hospitalized on October 27, and was discharged on October 28 for seizures. She has a history of mixed seizure disorder, and a history of a PE and is on Coumadin. She follows with the [facility] neurology clinic. The patient has reportedly had a pseudoseizure in October, and had a brain MRI in October which was negative, a negative brain MRA , and a negative CTA of her head and neck. She was evaluated by Dr. Chirinos. Her Keppra dose was increased from 1 mg BID to 1500 mg BID, and Lamictal 200 mg BID. As stated in previous notes, the patient requires a 72-hour EEG inpatient monitoring to tell the difference between seizures versus pseudoseizures. Per their note, they discussed with Ricardo about potential transfer, but it was not emergently needed as it is ongoing. 1521: The patient was evaluated in room B10. A complete history and physical exam was performed. 1539: I reevaluated the patient and when she was put on a bedpan she stopped having the twitches. Nursing states that she overheard the mother talking on the telephone with someone who stated that anytime a certain gas comes over to the house the patient starts having seizures and acts up. 1639: I discussed the patient with Dr. Chirinos - [facility] neurology - she stated that given the patient's negative CT, and that the twitchingstops when she is asked questions, and it sounds more like a pseudoseizure, however it could possibly be a focal seizure) if the rest of the workup is negative, she can be discharged with increased Lamictal 250 mg BID and can be given dose 100 mg orally prior to discharge. 1715: Her vitals are stable. I reevaluated the patient and her twitching stopped in her face. She is in no distress talking on her cell phone. Labs within normal limits. She will be discharged with an increased Lamictal 250 mg twice per day and 100 mg orally prior to discharge. DISCHARGE - Plan of care discussed with patient and questions answered. The patient was given both verbal and printed discharge instructions. The patient verbalized understanding and ability to comply. The patient is to seek outpatient follow up as noted in the discharge instructions. The patient verbalized understanding and ability to comply. The patient is discharged in stable condition. The patient was instructed to return for worsening symptoms. Ordered Lamictal Tab 100 mg PO. Medical Decision 1520: The patient's EMR was reviewed - the patient was hospitalized on October 27, and was discharged on October 28 for seizures. She has a history of mixed seizure disorder, and a history of a PE and is on Coumadin. She follows with the [facility] neurology clinic. The patient has reportedly had a pseudoseizure in October, and had a brain MRI in October which was negative, a negative brain MRA , and a negative CTA of her head and neck. She was evaluated by Dr. Chirinos. Her Keppra dose was increased from 1 mg BID to 1500 mg BID, and Lamictal 200 mg BID. As stated in previous notes, the patient requires a 72-hour EEG inpatient monitoring to tell the difference between seizures versus pseudoseizures. Per their note, they discussed with Ricardo about potential transfer, but it was not emergently needed as it is ongoing. 1521: The patient was evaluated in room B10. A complete history and physical exam was performed. 1539: I reevaluated the patient and when she was put on a bedpan she stopped having the twitches. Nursing states that she overheard the mother talking on the telephone with someone who stated that anytime a certain gas comes over to the house the patient starts having seizures and acts up. 1639: I discussed the patient with Dr. Chirinos - [facility] neurology - she stated that given the patient's negative CT, and that the twitchingstops when she is asked questions, and it sounds more like a pseudoseizure, however it could possibly be a focal seizure) if the rest of the workup is negative, she can be discharged with increased Lamictal 250 mg BID and can be given dose 100 mg orally prior to discharge. 1715: Her vitals are stable. I reevaluated the patient and her twitching stopped in her face. She is in no distress talking on her cell phone. Labs within normal limits. She will be discharged with an increased Lamictal 250 mg twice per day and 100 mg orally prior to discharge. DISCHARGE - Plan of care discussed with patient and questions answered. The patient was given both verbal and printed discharge instructions. The patient verbalized understanding and ability to comply. The patient is to seek outpatient follow up as noted in the discharge instructions. The patient verbalized understanding and ability to comply. The patient is discharged in stable condition. The patient was instructed to return for worsening symptoms. Ordered Lamictal Tab 100 mg PO. Medication Reconcilliation Current Medication List: was personally reviewed by me Blood Pressure Screening Patient's blood pressure: Normal blood pressure Consults Time Called: 163 Consulting Physician: Dr. Taran Reyes neurology Returned Call: [phone] I discussed the patient with Dr. Taran Reyes neurology - she stated that given the patient's negative CT, and that the twitchingstops when she is asked questions, and it sounds more like a pseudoseizure (but could possibly be a focal seizure), if the rest of the workup is negative, she can be discharged with increased Lamictal 250 mg BID and can be given dose 100 mg orally prior to discharge. Impression Primary Impression: Seizure disorder Additional Impression: History of pseudoseizure Scribe Attestation The scribe's documentation has been prepared under my direction and personally reviewed by me in its entirety. I confirm that the note above accurately reflects all work, treatment, procedures, and medical decision making performed by me. The chart was completed utilizing [employer] Speech voice recognition software. Grammatical errors, random word insertions, pronoun errors, and incomplete sentences are an occasional consequence of this system due to software limitations, ambient noise, and hardware issues. Any formal questions or concerns about the content, text, or information contained within the body of this dictation should be directly addressed to the physician for clarification. Departure Information Dispostion Home / Self-Care Prescriptions Lamotrigine (LAMICTAL) 100 Mg Tab 2.5 TAB PO BID for 30 Days, #30 TAB 1 Refill Prov: Chinedu Palacios M.D. 11/24/17 Referrals Melissa Kolb D.O. (PCP) Patient Instructions ED Seizure Recurrent, Lamotrigine tablets, My [facility] [place] [employer] Additional Instructions Begin taking Lamictal 250 mg twice daily. Call your neurologist for follow-up appointment tomorro Problem Qualifiers
[2017-11-24 16:01] VITALS: BP 119/78; O2SAT 95
[2017-11-24] MEDS ORDERED: LEVE500T13 PO (16:25)
[2017-11-24] MEDS ORDERED: KPP/1000 PO (16:25)
[2017-11-24 16:38] LABS: BASO % 0.4 %; BASO ABS # 0.03 K/uL (0-0.2); EOS % 12.1 %; EOS ABS # 1.03 K/uL (0-0.5); HEMATOCRIT 41.9 % (37-47); HEMOGLOBIN 14.4 g/dL (12.0-16.0); IG# 0.02 K/uL (0.00-0.02); LYMPH % 33.8 %; LYMPH ABS # 2.88 K/uL (1.2-3.4); MEAN CELL VOLUME 86.9 fL (80-100); MEAN CORPUSCULAR HEMOGLOBIN 29.9 pg (25-34); MEAN CORPUSCULAR HGB CONC 34.4 g/dl (32-36); MEAN PLATELET VOLUME 9.3 fL (7.4-10.4); MONO % 8.1 %; MONO ABS # 0.69 K/uL (0.11-0.59); NEUT % 45.4 %; NEUT ABS # 3.86 K/uL (1.4-6.5); PLATELET COUNT 294 K/uL (130-400); RED CELL DISTRIBUTION WIDTH CV 13.9 % (11.5-14.5); RED CELL DISTRIBUTION WIDTH SD 44.2 fL (36.4-46.3); WHITE BLOOD COUNT 8.51 K/uL (4.8-10.8)
--- NOTE | 2017-11-24 16:43 | DIAGNOSTIC IMAGING REPORT ---
CT OF THE HEAD WITHOUT CONTRAST CLINICAL HISTORY: Seizure. COMPARISON STUDY: Head CT and MRI of the brain October 27, 2017. CT DOSE: 638.56 mGycm TECHNIQUE: Helical axial images of the head were obtained without IV contrast. Automated exposure control was utilized for the study. A dose lowering technique was utilized adhering to the principles of ALARA. FINDINGS: No acute intracranial hemorrhage, midline shift or mass effect is present. Ventricular system is normal. Basilar cisterns are patent. No extra-axial collections are present. Jimenez-white differentiation is maintained. There are no findings to suggest acute dural sinus thrombosis or acute territorial infarct. There are no significant calvarial abnormalities. Visualized portions of the sinuses and mastoid air cells are clear with the exception of minimal mucosal thickening of the ethmoid sinuses. IMPRESSION: No acute intracranial findings. Electronically signed by: Rohith Raphael M.D. 11/24/2017 4:42 PM Dictated Date/Time: 11/24/2017 4:37 PM
[2017-11-24 16:53] LABS: CALCIUM 8.8 mg/dl (8.5-10.1); CREATININE 0.83 mg/dl (0.60-1.20); POTASSIUM 3.8 mmol/L (3.5-5.1)
[2017-11-24 17:04] VITALS: PULSE 93
[2017-11-24] MEDS ORDERED: LAMO200T PO (17:21)
[2017-11-24] MEDS ORDERED: LAMO100T PO (17:23)
[2017-11-24] MEDS ORDERED: RRALBUTNEB NEB (17:44)
[2017-11-24] MEDS ORDERED: ACET-1256 PO (21:08)
[2017-11-24] MEDS ORDERED: NORT25CA PO (21:08)
[2017-11-24] MEDS ORDERED: TPRSR/25 PO (21:08)
[2017-11-24] MEDS ORDERED: FOLI1TAB8 PO (21:11)
[2017-11-24] MEDS ORDERED: BCPILLS PO (21:11)
[2017-11-24] MEDS ORDERED: VNTHFA/IN INH (21:11)
[2017-11-29 14:32] LABS: KEPPRA (LEVETIRACETAM) *15142X 31.6 mcg/mL; LAMICTAL (LAMOTRIGINE)**22060 4.6 mcg/mL (4.0-18.0)
== END 2017-11-24 17:45 | disposition home or self-care (01) ==
LOC: EDBD 15:10 → C.EDB 15:12
DX: G40.909 Epilepsy, unspecified, not intractable, without status epilepticus (principal); Z86.69 Personal history of other diseases of the nervous system and sense organs; Z86.711 Personal history of pulmonary embolism; Z79.01 Long term (current) use of anticoagulants; J45.909 Unspecified asthma, uncomplicated; K21.9 Gastro-esophageal reflux disease without esophagitis; E03.9 Hypothyroidism, unspecified; E78.5 Hyperlipidemia, unspecified; F17.200 Nicotine dependence, unspecified, uncomplicated; Z79.3 Long term (current) use of hormonal contraceptives; Z88.6 Allergy status to analgesic agent; Z88.1 Allergy status to other antibiotic agents; Z91.048 Other nonmedicinal substance allergy status

== ENCOUNTER 2018-04-05 10:34 | Emergency (ER) | payer OTHER ==
[~2018-04-05] VITALS: Ht 170.2 cm; Wt 108.7 kg
[~2018-04-05 10:34] MED LIST changes: +ACET-1256 PO; +BCPILLS PO; +FOLI1TAB8 PO; +KPP/1000 PO; +LAMO100T PO; +NORT25CA PO; +RRALBUTNEB NEB; +TPRSR/25 PO; +VNTHFA/IN INH
[2018-04-05 10:37] VITALS: TEMP 37; Ht 170.2 cm; Wt 108.7 kg
[2018-04-05] MEDS ORDERED: KETOROLAC TROMETHAMINE 30 MG/ML VIAL IV STA (10:57)
[2018-04-05] MEDS ORDERED: ONDANSETRON INJ 2 MG/ML 2 ML VIAL IV STA (10:57)
[2018-04-05] MEDS ORDERED: OPTIRAY 320 IV PRN (11:00)
[2018-04-05] MEDS ORDERED: DTR/5 PO (11:13)
[2018-04-05 11:22] LABS: BASO % 0.1 %; BASO ABS # 0.01 K/uL (0-0.2); EOS % 7.5 %; EOS ABS # 0.57 K/uL (0-0.5); HEMATOCRIT 40.1 % (37-47); HEMOGLOBIN 13.7 g/dL (12.0-16.0); IG# 0.01 K/uL (0.00-0.02); LYMPH % 31.6 %; LYMPH ABS # 2.42 K/uL (1.2-3.4); MEAN CELL VOLUME 88.9 fL (80-100); MEAN CORPUSCULAR HEMOGLOBIN 30.4 pg (25-34); MEAN CORPUSCULAR HGB CONC 34.2 g/dl (32-36); MEAN PLATELET VOLUME 9.9 fL (7.4-10.4); MONO % 6.5 %; NEUT % 54.2 %; NEUT ABS # 4.14 K/uL (1.4-6.5); PLATELET COUNT 285 K/uL (130-400); RED CELL DISTRIBUTION WIDTH SD 41.9 fL (36.4-46.3); WHITE BLOOD COUNT 7.65 K/uL (4.8-10.8)
[2018-04-05 11:37] LABS: ALBUMIN 2.8 gm/dl (3.4-5.0); CALCIUM 8.7 mg/dl (8.5-10.1); CREATININE 0.76 mg/dl (0.60-1.20); POTASSIUM 3.5 mmol/L (3.5-5.1); TOTAL PROTEIN 7.1 gm/dl (6.4-8.2)
--- NOTE | 2018-04-05 12:19 | DIAGNOSTIC IMAGING REPORT ---
PELVIC ULTRASOUND CLINICAL HISTORY: Right lower quadrant abdominal pain. COMPARISON STUDY: Pelvic ultrasound and CT of the abdomen and pelvis September 19, 2017. TECHNIQUE: Transabdominal and transvaginal sonography of the pelvis was performed. FINDINGS: The uterus measures 7.9 x 4 x 4.8 cm. Endometrium measures 2 mm in thickness. There is no free fluid or adnexal mass. The right ovary measures 3 x 2 x 2.7 cm and the left measures 3.5 x 1.4 x 1.5 cm. There is color flow within each ovary. There is a dominant follicle within the right ovary which measures 1.1 cm. IMPRESSION: Unremarkable pelvic ultrasound. Electronically signed by: Rohith Raphael M.D. 04/05/2018 12:18 PM Dictated Date/Time: 04/05/2018 12:17 PM
--- NOTE | 2018-04-05 13:18 | DIAGNOSTIC IMAGING REPORT ---
ABDOMEN AND PELVIS CT WITH IV AND ORAL CONTRAST CT DOSE: 1326.22 mGy.cm HISTORY: Acute right lower quadrant abdominal pain with vomiting RLQ abd pain TECHNIQUE: Multiaxial CT images of the abdomen and pelvis were performed following the use of intravenous and oral contrast. A dose lowering technique was utilized adhering to the principles of ALARA. COMPARISON STUDY: CT abdomen and pelvis 09/19/2017, pelvic ultrasound 04/05/2018. FINDINGS: Mild subsegmental bibasilar atelectasis. There is a suggested 3 mm solid nodule right lower lobe on image 1, partially imaged which is likely benign. No pneumatosis or pneumoperitoneum. Imaged inferior cardiac chambers are unremarkable. Prior cholecystectomy. The liver, spleen, pancreas and adrenal glands are unremarkable. Kidneys, ureters, bladder, uterus and adnexa are unremarkable. Aorta and IVC appear to be within normal limits. There are no pathologically enlarged lymph nodes. No bowel obstruction or focal bowel wall thickening. Enteric contrast extends through the ileocecal valve. Nondistention involves the majority of the distal colon. Normal-appearing appendix is seen on image 336 series 3. No evidence of acute appendicitis. No ascites or mesenteric inflammatory changes. Soft tissues are unremarkable. Remote appearing bilateral pars defects at L5. Annular disc bulging is seen at L4-L5 and L5-S1. 4 mm anterolisthesis L5 on S1. Mild levoscoliosis of the lumbar spine. IMPRESSION: 1. No acute intra-abdominal or intrapelvic abnormality identified. 2. No bowel obstruction or focal bowel wall thickening. Normal appendix. 3. Prior cholecystectomy. 4. Remote appearing pars defects at L5 with grade 1 anterolisthesis L5 on S1. Electronically signed by: Ezra Nj M.D. 04/05/2018 1:16 PM Dictated Date/Time: 04/05/2018 1:08 PM
--- NOTE | 2018-04-05 14:01 | EMERGENCY ROOM VISIT NOTE ---
History First contact with patient: 10:42 Chief Complaint: ABDOMINAL PAIN Stated Complaint: ABDOMINAL PAIN,VOMITING Nursing Triage Summary: Patient c/o of RLQ abdominal pain and nausea x 2 days. Hx of ovarian cysts. History of Present Illness The patient is a 22 year old female who presents to the Emergency Room via private vehicle with complaints of "abdominal pain, vomiting". The patient notes that she has been experience right lower quadrant abdominal pain for 2 days. She began vomiting this morning. She rates the overall pain as a 7/10. She notes a history of ovarian cysts which have caused similar pain. She notes this is slightly different. No fevers, chills, chest pain, shortness of breath , . Review of Systems A complete 10-point Review of Systems was discussed with the patient, with pertinent positives and negatives listed in the History of Present Illness. All remaining Review of Systems questions can be considered negative unless otherwise specified. Past Medical/Surgical History Medical Problems: (1) Acanthosis nigricans, acquired (2) Asthma (3) Dyslipidemia (4) Flu (5) GERD (gastroesophageal reflux disease) (6) Hospice care (7) Hypothyroidism (8) Inappropriate sinus tachycardia (9) Kidney stone (10) OAB (overactive bladder) (11) Ovarian cyst (12) PTSD (post-traumatic stress disorder) (13) Seizures (14) Sepsis (15) Vaginal delivery Surgical Problems: (1) H/O colonoscopy (2) H/O esophagogastroduodenoscopy (3) H/O foot surgery (4) S/P laparoscopic cholecystectomy (5) S/P removal of ovarian cyst (6) Status post Mohs surgery Family History Diabetes mellitus FATHER GRANDMOTHER FH: cancer FATHER FH: gallbladder disease FH: heart disease FH: seizures MOTHER Social History Smoking Status: Former Smoker Alcohol Use: none Drug Use: none Marital Status: single, in relationship Housing Status: lives with family Occupation Status: disabled Current/Historical Medications Scheduled Control Pills ( Control Pills), 1 TAB PO QAM Folic Acid (Folvite), 3 MG PO QAM Lamotrigine (Lamictal), 200 MG PO BID Lamotrigine (Lamictal), 2.5 TAB PO BID Levetiracetam (Keppra), 500 MG PO BID Levetiracetam (Keppra), 1,000 MG PO BID Levothyroxine Sodium (Levothyroxine Sodium), 50 MCG PO DAILY Metoprolol Succinate (Metoprolol Succinate ER), 25 MG PO DAILY Nortriptyline (Pamelor), 25 MG PO HS Omeprazole (Prilosec), 40 MG PO DAILY Oxybutynin Chloride (Ditropan), Unknown Dose PO DAILY Scheduled PRN Acetaminophen (Tylenol), 1,000 MG PO Q6H PRN for Headache Albuterol Hfa (Ventolin Hfa), 2 PUFFS INH UD PRN for Asthma Symptoms Albuterol Sulf (Albuterol Sulfate), 2.5 MG NEB Q4H PRN for Shortness of Breath Physical Exam Vital Signs Date Time Temp Pulse Resp B/P (MAP) Pulse Ox O2 Delivery O2 Flow Rate FiO2 04/05/18 14:24 82 18 122/79 98 04/05/18 12:27 72 18 115/62 97 Room Air 04/05/18 10:37 37.0 98 18 136/87 98 Room Air Physical Exam VITAL SIGNS - Vital signs and nursing notes were reviewed. Stable. Afebrile. GENERAL -22-year-old female appearing her stated age who is in no acute distress. Communicates well with provider and answers questions appropriately. SKIN - Without rashes. No meningeal or petechial rash. HEAD - NC/AT. EYES - PERRL with EOMI bilaterally. Sclera anicteric. EARS - No deformities of external structures noted on gross examination bilaterally. NOSE - Midline and without cyanosis. No epistaxis or purulent drainage noted. MOUTH/OROPHARYNX - Without perioral cyanosis. NECK - Neck with FROM. Supple to palpation. No lymphadenopathy noted. No nuchal rigidity. LUNGS - Chest wall symmetric without accessory muscle use, intercostals retractions, or central cyanosis. Normal vesicular breath sounds CTA B/L. No wheezes, rales, or rhonchi appreciated. CARDIAC - RRR with S1/S2. No murmur, rubs, or gallops appreciated. ABDOMEN - Abdominal contour normal without pulsations or visible masses. BS normoactive all four quadrants. Minimal right lower quadrant abdominal tenderness. No rebound tenderness or guarding. No rigidity. Abdomen is soft. No palpable masses, hepatosplenomegaly, or ascites noted. EXTREMITIES - No clubbing or peripheral cyanosis. No pretibial edema present. + 5/5 strength noted in UE/LE bilaterally. NEUROLOGIC - Cranial nerves II through XII grossly intact. Sensory intact to light touch throughout. PSYCH - A&Ox3 and cooperates fully with examiner. Pt is very pleasant and interacts well with examiner. Medical Decision & Procedures ER Provider Diagnostic Interpretation: PELVIC ULTRASOUND CLINICAL HISTORY: Right lower quadrant abdominal pain. COMPARISON STUDY: Pelvic ultrasound and CT of the abdomen and pelvis September 19, 2017. TECHNIQUE: Transabdominal and transvaginal sonography of the pelvis was performed. FINDINGS: The uterus measures 7.9 x 4 x 4.8 cm. Endometrium measures 2 mm in thickness. There is no free fluid or adnexal mass. The right ovary measures 3 x 2 x 2.7 cm and the left measures 3.5 x 1.4 x 1.5 cm. There is color flow within each ovary. There is a dominant follicle within the right ovary which measures 1.1 cm. IMPRESSION: Unremarkable pelvic ultrasound. Electronically signed by: Rohith Raphael M.D. 04/05/2018 12:18 PM Dictated Date/Time: 04/05/2018 12:17 PM ABDOMEN AND PELVIS CT WITH IV AND ORAL CONTRAST CT DOSE: 1326.22 mGy.cm HISTORY: Acute right lower quadrant abdominal pain with vomiting RLQ abd pain TECHNIQUE: Multiaxial CT images of the abdomen and pelvis were performed following the use of intravenous and oral contrast. A dose lowering technique was utilized adhering to the principles of ALARA. COMPARISON STUDY: CT abdomen and pelvis 09/19/2017, pelvic ultrasound 04/05/2018. FINDINGS: Mild subsegmental bibasilar atelectasis. There is a suggested 3 mm solid nodule right lower lobe on image 1, partially imaged which is likely benign. No pneumatosis or pneumoperitoneum. Imaged inferior cardiac chambers are unremarkable. Prior cholecystectomy. The liver, spleen, pancreas and adrenal glands are unremarkable. Kidneys, ureters, bladder, uterus and adnexa are unremarkable. Aorta and IVC appear to be within normal limits. There are no pathologically enlarged lymph nodes. No bowel obstruction or focal bowel wall thickening. Enteric contrast extends through the ileocecal valve. Nondistention involves the majority of the distal colon. Normal-appearing appendix is seen on image 336 series 3. No evidence of acute appendicitis. No ascites or mesenteric inflammatory changes. Soft tissues are unremarkable. Remote appearing bilateral pars defects at L5. Annular disc bulging is seen at L4-L5 and L5-S1. 4 mm anterolisthesis L5 on S1. Mild levoscoliosis of the lumbar spine. IMPRESSION: 1. No acute intra-abdominal or intrapelvic abnormality identified. 2. No bowel obstruction or focal bowel wall thickening. Normal appendix. 3. Prior cholecystectomy. 4. Remote appearing pars defects at L5 with grade 1 anterolisthesis L5 on S1. Electronically signed by: Ezra Nj M.D. 04/05/2018 1:16 PM Dictated Date/Time: 04/05/2018 1:08 PM Laboratory Results 04/05/18 11:00 Red Blood Count 4.51, Mean Corpuscular Volume 88.9, Mean Corpuscular Hemoglobin 30.4, Mean Corpuscular Hemoglobin Concent 34.2, Mean Platelet Volume 9.9, Neutrophils (%) (Auto) 54.2, Lymphocytes (%) (Auto) 31.6, Monocytes (%) (Auto) 6.5, Eosinophils (%) (Auto) 7.5, Basophils (%) (Auto) 0.1, Neutrophils # (Auto) 4.14, Lymphocytes # (Auto) 2.42, Monocytes # (Auto) 0.50, Eosinophils # (Auto) 0.57, Basophils # (Auto) 0.01 04/05/18 11:00 Test 04/05/18 11:00 04/05/18 11:13 White Blood Count 7.65 K/uL (4.8-10.8) Red Blood Count 4.51 M/uL (4.2-5.4) Hemoglobin 13.7 g/dL (12.0-16.0) Hematocrit 40.1 % (37-47) Mean Corpuscular Volume 88.9 fL (80-100) Mean Corpuscular Hemoglobin 30.4 pg (25-34) Mean Corpuscular Hemoglobin Concent 34.2 g/dl (32-36) Platelet Count 285 K/uL (130-400) Mean Platelet Volume 9.9 fL (7.4-10.4) Neutrophils (%) (Auto) 54.2 % Lymphocytes (%) (Auto) 31.6 % Monocytes (%) (Auto) 6.5 % Eosinophils (%) (Auto) 7.5 % Basophils (%) (Auto) 0.1 % Neutrophils # (Auto) 4.14 K/uL (1.4-6.5) Lymphocytes # (Auto) 2.42 K/uL (1.2-3.4) Monocytes # (Auto) 0.50 K/uL (0.11-0.59) Eosinophils # (Auto) 0.57 K/uL (0-0.5) Basophils # (Auto) 0.01 K/uL (0-0.2) RDW Standard Deviation 41.9 fL (36.4-46.3) RDW Coefficient of Variation 13.0 % (11.5-14.5) Immature Granulocyte % (Auto) 0.1 % Immature Granulocyte # (Auto) 0.01 K/uL (0.00-0.02) Anion Gap 9.0 mmol/L (3-11) Est Creatinine Clear Calc Drug Dose 147.5 ml/min Estimated GFR () 129.1 Estimated GFR (Non- 111.3 BUN/Creatinine Ratio 15.2 (10-20) Calcium Level 8.7 mg/dl (8.5-10.1) Total Bilirubin 0.2 mg/dl (0.2-1) Aspartate Amino Transf (AST/SGOT) 10 U/L (15-37) Alanine Aminotransferase (ALT/SGPT) 16 U/L (12-78) Alkaline Phosphatase 64 U/L (45-117) Total Protein 7.1 gm/dl (6.4-8.2) Albumin 2.8 gm/dl (3.4-5.0) Globulin 4.3 gm/dl (2.5-4.0) Albumin/Globulin Ratio 0.7 (0.9-2) Lipase 97 U/L (73-393) Urine Color DK YELLOW Urine Appearance CLOUDY (CLEAR) Urine pH 5.0 (4.5-7.5) Urine Specific [place] 1.031 (1.000-1.030) Urine Protein NEG (NEG) Urine Glucose (UA) NEG (NEG) Urine Ketones NEG (NEG) Urine Occult Blood NEG (NEG) Urine Nitrite NEG (NEG) Urine Bilirubin NEG (NEG) Urine Urobilinogen NEG (NEG) Urine Leukocyte Esterase SMALL (NEG) Urine RBC (Auto) /hpf (0-4) Urine Hyaline Casts (Auto) /lpf (0-5) Urine RBC 0-4 /hpf (0-4) Urine WBC 1-5 /hpf (0-5) Urine Epithelial Cells >30 /lpf (0-5) Urine Bacteria 1+ (NEG) Urine Pathogenic Casts /lpf (0) Urine Test NEG (NEG) Medications Administered Medications (Trade) Dose Ordered Sig/Miroslava Route Start Time Stop Time Status Last Admin Dose Admin Ketorolac Tromethamine (Toradol Inj) 30 mg NOW STAT IV 04/05/18 10:57 04/05/18 10:58 DC 04/05/18 11:22 30 MG Ondansetron HCl (Zofran Inj) 4 mg NOW STAT IV 04/05/18 10:57 04/05/18 10:58 DC 04/05/18 11:21 4 MG Medical Decision Patient was seen and evaluated as above in room C5. Review was performed of nursing notes and vital signs. After obtaining a thorough history and physical examination the above work up was performed. She presents to us today with right lower quadrant abdominal pain. She is nontoxic on examination. She also has vomiting. Ultrasound was obtained initially and was essentially negative. This was of the pelvis. There is no concerning leukocytosis or anemia upon review of her lab work. No emergent metabolic abnormality. Urinalysis does not indicate infection or . Benefit versus risk of obtaining CT scan of the abdomen and pelvis was discussed with the patient. Through shared decision making, and talking with the patient, the CT scan was obtained. Results as above. There is essentially no acute process. I informed her upon the incisional findings. I recommend bowel rest, and follow-up with the family doctor or return with worsening. She was able to tolerate p.o. fluids here very well. She was able to ambulate without difficulty. Here she was given Toradol and Zofran. The patient was educated upon management, educated upon todays findings/results, educated upon symptoms in which to return, had questions answered prior to discharge, and was discharged home in good condition. In the evaluation and treatment of this patient the following differential diagnoses were entertained: Appendicitis, ovarian cyst, diverticulitis,, gastroenteritis, musculoskeletal etiology, among others. Impression Primary Impression: Right lower quadrant abdominal pain Departure Information Dispostion Home / Self-Care Condition GOOD Referrals Melissa Kolb D.O. (PCP) Patient Instructions My [facility] Additional Instructions You have been treated in the Emergency Department your Abdominal Pain. Laboratory results and imaging studies have ruled out any emergent causes for your abdominal pain which would warrant admission or surgery. For pain control, you can use the following [id number] medicines (if >12 yo): - Regular strength (325mg/tab) Tylenol (acetaminophen) 2 tabs every 4-6 hours as needed. Do not exceed 12 tablets in a 24 hour period. Avoid taking more than 3 grams (3000 mg) of Tylenol per day. This includes any other sources of acetaminophen you may take on a regular basis. - Regular strength (200 mg/tab) Advil (ibuprofen) 1-2 tabs every 4-6 hours as needed. Do not exceed a dose of 3200 mg per day. Drink plenty of water and stay well hydrated. As with any trip to the Emergency Department, you should follow-up with your Primary Care Provider from today's visit. Return to the emergency department if your symptoms persist despite treatment plan outlined above or if the following symptoms occur: increased fevers, chills , worsening nausea/vomiting, blood in your stool or urine.
[2018-04-05 14:24] VITALS: BP 122/79; PULSE 82; O2SAT 98
[2018-04-06] MEDS ORDERED: ONDA4TAB10 SL (05:15)
== END 2018-04-05 14:25 | disposition home or self-care (01) ==
LOC: C.EDB 10:35 → C.EDC 14:25
DX: R10.31 Right lower quadrant pain (principal); J45.909 Unspecified asthma, uncomplicated; E78.5 Hyperlipidemia, unspecified; K21.9 Gastro-esophageal reflux disease without esophagitis; E03.9 Hypothyroidism, unspecified; Z87.442 Personal history of urinary calculi; N32.81 Overactive bladder; F43.10 Post-traumatic stress disorder, unspecified; Z90.49 Acquired absence of other specified parts of digestive tract; Z83.3 Family history of diabetes mellitus; Z80.9 Family history of malignant neoplasm, unspecified; Z83.79 Family history of other diseases of the digestive system; Z82.0 Family history of epilepsy and other diseases of the nervous system; Z87.891 Personal history of nicotine dependence; Z79.3 Long term (current) use of hormonal contraceptives; Z79.899 Other long term (current) drug therapy

== ENCOUNTER 2018-04-06 04:49 | Emergency (ER) | payer OTHER ==
[~2018-04-06] VITALS: Ht 170.2 cm; Wt 109.9 kg
[~2018-04-06 04:49] MED LIST changes: +DTR/5 PO
[2018-04-06 04:53] VITALS: BP 139/85; PULSE 95; TEMP 36.9; O2SAT 97; Ht 170.2 cm; Wt 109.9 kg
[2018-04-06] MEDS ORDERED: ONDANSETRON 4MG OD TAB PO STA (05:07)
[2018-04-06] MEDS ORDERED: ONDA4TAB10 SL (05:15)
[2018-04-06] MEDS ORDERED: ONDANSETRON HOME PACK 4MG OD TAB PO ONE (05:15)
--- NOTE | 2018-04-07 05:24 | EMERGENCY ROOM VISIT NOTE ---
History First contact with patient: 04:57 Chief Complaint: ABDOMINAL PAIN Stated Complaint: ABD PAIN, HERE YESTERDAY Nursing Triage Summary: Pt reports that she was here yesterday for abdominal pain, nausea, vomiting. Today patient said the pain is worse and unable to keep any fluids down. Reports she feels as if she has been running a fever. Took tylenol at 0200 today. History of Present Illness The patient is a 22 year old female who presents to the Emergency Room with complaints of persistent nausea and abdominal pain. The patient was seen and evaluated in this emergency department roughly 12 hours ago with identical complaints. The patient states that she felt well at the time of discharge, went home, and slept for several hours. She got up, ate, and had an episode of emesis. Since that episode of emesis she is having difficulty tolerating fluids. The patient rates her overall discomfort a 5/10. At her visit earlier today she had blood work, CT scan, ultrasound, and multiple medications that did provide her relief. Her last dose of nausea medicine was about 12 hours ago. Review of Systems More than 10 systems were reviewed and otherwise negative with the exception of history of present illness. Past Medical/Surgical History Medical Problems: (1) Acanthosis nigricans, acquired (2) Asthma (3) Dyslipidemia (4) Flu (5) GERD (gastroesophageal reflux disease) (6) Hospice care (7) Hypothyroidism (8) Inappropriate sinus tachycardia (9) Kidney stone (10) OAB (overactive bladder) (11) Ovarian cyst (12) PTSD (post-traumatic stress disorder) (13) Seizures (14) Sepsis (15) Vaginal delivery Surgical Problems: (1) H/O colonoscopy (2) H/O esophagogastroduodenoscopy (3) H/O foot surgery (4) S/P laparoscopic cholecystectomy (5) S/P removal of ovarian cyst (6) Status post Mohs surgery Family History Diabetes mellitus FATHER GRANDMOTHER FH: cancer FATHER FH: gallbladder disease FH: heart disease FH: seizures MOTHER Social History Smoking Status: Former Smoker Alcohol Use: none Drug Use: none Marital Status: single, in relationship Housing Status: lives with family Occupation Status: disabled Current/Historical Medications Scheduled Control Pills ( Control Pills), 1 TAB PO QAM Folic Acid (Folvite), 3 MG PO QAM Lamotrigine (Lamictal), 200 MG PO BID Lamotrigine (Lamictal), 2.5 TAB PO BID Levetiracetam (Keppra), 500 MG PO BID Levetiracetam (Keppra), 1,000 MG PO BID Levothyroxine Sodium (Levothyroxine Sodium), 50 MCG PO DAILY Metoprolol Succinate (Metoprolol Succinate ER), 25 MG PO DAILY Nortriptyline (Pamelor), 25 MG PO HS Omeprazole (Prilosec), 40 MG PO DAILY Ondasetron Odt (Zofran Odt), 4 MG SL Q6H Oxybutynin Chloride (Ditropan), Unknown Dose PO DAILY Scheduled PRN Acetaminophen (Tylenol), 1,000 MG PO Q6H PRN for Headache Albuterol Hfa (Ventolin Hfa), 2 PUFFS INH UD PRN for Asthma Symptoms Albuterol Sulf (Albuterol Sulfate), 2.5 MG NEB Q4H PRN for Shortness of Breath Physical Exam Vital Signs Date Time Temp Pulse Resp B/P (MAP) Pulse Ox O2 Delivery O2 Flow Rate FiO2 04/06/18 04:53 36.9 95 18 139/85 97 Room Air Physical Exam VITALS: Vitals are noted on the nurse's note and reviewed by myself. Vital signs stable. GENERAL: Well-developed, well-nourished, white female, who is in no acute distress and resting comfortably. Patient is cooperative with the examination. HEAD: Normocephalic atraumatic. EARS: External ear normal. External auditory canals clear, tympanic membranes pearly beyer without erythema or effusion bilaterally. EYES: Pupils equal round and reactive to light and accommodation. Conjunctivae without injection, sclerae without icterus. Extraocular movements intact. NOSE: Patent, turbinates without inflammation or discharge. MOUTH: Mucous membranes moist. Tonsils are not enlarged. Pharynx without erythema, blood, or exudate. Uvula midline. Airway patent. NECK: Supple without nuchal rigidity. No lymphadenopathy. No thyromegaly. Cervical spine is nontender. HEART: Regular rate and rhythm without murmurs gallops or rubs. LUNGS: Clear to auscultation bilaterally without wheezes, rales or rhonchi. No retractions or accessory muscle use. ABDOMEN: Positive normal bowel sounds x 4. Soft, nontender, without masses or organomegaly. No guarding or rebound tenderness. Medical Decision & Procedures Medications Administered Medications (Trade) Dose Ordered Sig/Miroslava Route Start Time Stop Time Status Last Admin Dose Admin Ondansetron HCl (Zofran Odt) 4 mg NOW STAT PO 04/06/18 05:07 04/06/18 05:08 DC 04/06/18 05:10 4 MG Ondansetron HCl (ZOFRAN ODT 4MG Home Pack) 1 homepack UD ONCE PO 04/06/18 05:15 04/06/18 05:16 DC 04/06/18 05:10 1 HOMEPACK ED Course Physical exam and history were performed. Nursing notes, EMR, and Medication List were personally reviewed. Patient appears to have nausea with some ongoing abdominal discomfort. The patient was seen in this emergency department several hours ago with this complaint. I was able to review her medical records, which do reveal an extensive evaluation including multiple imaging studies and blood work. On examination the patient appears well and nontoxic. Her abdominal exam certainly does not correlate with an acute surgical abdomen. Her primary complaint now is the nausea. I discussed options of care with the patient. Utilizing shared decision making we elected against additional workup as her symptoms most likely correlate with a viral or foodborne illness. I did give her a dose of Zofran ODT here in the department, which essentially completely resolved her symptoms. I will send the patient home with a home pack of Zofran as well as a short prescription. She is to follow with her primary care physician for further care management. She is to be on a liquid only diet for the next 1-2 days. She was otherwise invited back to the ER with any new, worsening, or concerning symptoms. The chart was completed utilizing [employer] Speech Voice Recognition Software. Grammatical errors, random word insertions, pronoun errors, and incomplete sentences are an occasional consequence of this system due to software limitations, ambient noise, and hardware issues. Any formal questions or concerns about the content, text, or information contained within the body of this dictation should be directly addressed to the provider for clarification. . Medical Decision Differential diagnosis: Etiologies such as gastroenteritis, food borne illness, infections, appendicitis , diverticulitis, inflammatory bowel disease, obstruction, GI bleed, biliary pathology, as well as others were entertained. Impression Primary Impression: Nausea and vomiting Departure Information Dispostion Home / Self-Care Condition GOOD Prescriptions Ondasetron Odt (ZOFRAN ODT) 4 Mg Tab 4 MG SL Q6H for Nausea, #12 TAB Prov: Geoffrey Dent PA-C 04/06/18 Forms HOME CARE DOCUMENTATION FORM, IMPORTANT VISIT INFORMATION Patient Instructions My [facility] Additional Instructions You were seen and evaluated today on an emergency basis only. This is not a substitute for, or an effort to provide, complete comprehensive medical care. It is not possible to recognize and treat all injuries or illnesses in a single emergency department visit. For this reason it is recommended that you followup with your primary care physician for ongoing care and evaluation. Liquid only diet for the next 24-48 hours Zofran 4 mg ODT: Dissolve 1 tablet every 6 hrs as needed for nausea. You are welcome to return to the emergency department anytime with new, worsening, or concerning symptoms.
== END 2018-04-06 05:20 | disposition home or self-care (01) ==
LOC: C.EDB 04:50 → C.EDA 05:20
DX: R11.2 Nausea with vomiting, unspecified (principal); R56.9 Unspecified convulsions; E03.9 Hypothyroidism, unspecified; N32.81 Overactive bladder; Z79.3 Long term (current) use of hormonal contraceptives; Z90.49 Acquired absence of other specified parts of digestive tract; Z87.891 Personal history of nicotine dependence

== ENCOUNTER 2022-05-24 14:49 | Inpatient (IN) ==
[2022-05-24] MEDS ORDERED: ALBUTEROL 0.083% NEBU SOLN 3 ML VIAL NEB STA (15:43)
--- NOTE | 2022-05-24 15:43 | Emergency Department Note ---
History of Present Illness General Chief complaint: Shortness of Breath/Dyspnea Stated complaint: SOB Time Seen by Provider: 05/24/22 15:30 Source: patient Mode of arrival: ambulatory Limitations: no limitations History of Present Illness Maximum Pain Intensity: 7 This patient is a 26-year-old female who comes in complaining of shortness of breath and wheezing. The nurse called and asked me to see her as she was a priority patient and she had low oxygen saturation despite being on supplemental oxygen. She has a history of asthma this started yesterday she saw her regular doctor today who gave her a shot of steroids as well as a shot of Rocephin and sent her home when she got home was very short of breath so she called the ambulance she got to be nebs on route she thinks. She has been using nebs frequently. She has a cough and is been nonproductive for 2 days no injury she said they was COVID tested negative. No trauma. Home Medications Medication Instructions Recorded Confirmed Type albuterol sulfate 90 mcg/actuation 2 puff inhalation Q6H PRN 08/19/18 05/24/22 History aerosol inhaler (Ventolin HFA) Shortness Of Breath Or Wheezing folic acid 1 mg tablet 3 mg PO QAM 08/19/18 05/24/22 History lamotrigine 200 mg tablet 200 mg PO BID 08/19/18 05/24/22 History (Lamictal) levetiracetam 1,000 mg tablet 1,000 mg PO BID 08/19/18 05/24/22 History (Keppra) levetiracetam 500 mg tablet 500 mg PO BID 08/19/18 05/24/22 History (Keppra) nortriptyline 25 mg capsule 25 mg PO HS 08/19/18 05/24/22 History cyanocobalamin (vitamin B-12) 1,000 mcg PO QAM 08/02/19 05/24/22 History 1,000 mcg tablet (Vitamin B-12) magnesium oxide 400 mg (241.3 mg 400 mg PO QAM 08/02/19 05/24/22 History magnesium) tablet albuterol sulfate 2.5 mg/3 mL 2.5 mg inhalation Q4H PRN Wheezing 07/29/20 05/24/22 History (0.083 %) solution for nebulization famotidine 20 mg tablet 20 mg PO BID 07/29/20 05/24/22 History lamotrigine 100 mg tablet 50 mg PO BID 07/29/20 05/24/22 History levothyroxine 125 mcg tablet 125 mcg PO QAM 07/29/20 05/24/22 History (Synthroid) montelukast 10 mg tablet 10 mg PO QAM 07/29/20 05/24/22 History omeprazole 20 mg capsule,delayed 20 mg PO BID 07/29/20 05/24/22 History release fluticasone 250 mcg-salmeterol 50 1 ea inhalation BID 11/01/20 05/24/22 History mcg/dose blistr powdr for inhalation (Advair Diskus) esomeprazole magnesium 20 mg 20 mg PO BID 06/28/21 05/24/22 History capsule,delayed release Allergies Allergy/AdvReac Type Severity Reaction Status Date / Time hydromorphone Allergy Severe Respirations Verified 10/08/21 09:32 stopped. peanut Allergy Severe ALL Verified 10/08/21 09:32 NUTS-HIVES, SOB amoxicillin Allergy Intermediate Rash Verified 10/08/21 09:32 morphine Allergy Intermediate Hives Verified 10/08/21 09:32 oxycodone Allergy Intermediate Hives Verified 10/08/21 09:32 adhesive AdvReac Mild Rash Verified 10/08/21 09:32 Past Med/Surg History Medical History (Updated 05/24/22 @ 23:11 by Roger Rubin MD) Acanthosis nigricans, acquired Anxiety Anxiety Asthma Asthma exacerbation Depression Diabetes type 2, controlled Dyslipidemia GERD (gastroesophageal reflux disease) H/O deep venous thrombosis H/O tonic-clonic seizures Heart palpitations Hypothyroidism Inappropriate sinus tachycardia F/U DR LUO [facility]. On Corlanor, which has significantly improved symptoms. Kidney stone HX OAB (overactive bladder) Obesity Ovarian cyst Overactive bladder PTSD (post-traumatic stress disorder) Seizures LAST SEIZURE ~ 08/2019. F/U DR VILLANUEVA NEUROLOGIST [facility]. Most recent OV 03/2020, stable, deemed OK for endoscopy. Surgical History H/O colonoscopy H/O esophagogastroduodenoscopy H/O foot surgery History of cystoscopy TO REMOVE KIDNEY STONES History of myringotomy Nausea and vomiting after administration of anesthetic agent X 1 S/P laparoscopic cholecystectomy S/P removal of ovarian cyst Status post Mohs surgery Family History Mother Family history of diabetes mellitus Grandmother (Maternal) Family history of diabetes mellitus Social History Smoking Status: Current every day smoker Tobacco Type: Cigarettes Cigarettes Per Day: 1/2 ppd; Second Hand Exposure: No; Do You Dip or Chew Tobacco: No; Hx Alcohol Use: No Hx Substance Use: No Preferred Language: Telugu Communication Ability: Effective Com Writer Required: No Beliefs That Will Affect Care: None Current Living Situation: Family Current Living Situation Comment: Pt lives at home with her fatherMario Other Information That Helps Us Care for You: No Feels Safe at Home: Yes Safety Concerns: Feels Safe At This Time Assistive Devices: Glasses Review of Systems A total of 10 systems reviewed and were otherwise negative Physical Exam Vital Signs Vital Signs - 24 hr 05/24/22 14:50 05/24/22 14:50 05/24/22 15:17 Temperature 36.8 C Temperature Source Oral Pulse Rate 131 H 131 H Pulse Rate [Apical] Pulse Rate from SpO2 Sensor Pulse Rhythm Regular Respiratory Rate 28 H 28 H Respiratory Effort / Characteristics Non-Labored Respiratory Depth Normal Respiratory Pattern Regular Blood Pressure 162/97 H Blood Pressure Mean 118 Pulse Oximetry 88 L 88 L 90 Oxygen Delivery Method Room Air Nasal Cannula Nasal Cannula Oxygen Flow Rate 0 3 Sepsis Recent Fever Within 48 Hours No Sepsis New/Unexplained Change in Mental Status N/A Sepsis Action Taken by Nursing Physician Notified Oxygen Flow Rate - Titration 2 Pulse Oximetry Post Tiitration 91 05/24/22 16:21 05/24/22 15:17 05/24/22 15:17 Temperature Temperature Source Pulse Rate Pulse Rate [Apical] 127 H Pulse Rate from SpO2 Sensor Pulse Rhythm Respiratory Rate 27 H 28 H Respiratory Effort / Characteristics Spontaneous Labored Short of Breath Labored Short of Breath Respiratory Depth Respiratory Pattern Blood Pressure Blood Pressure Mean Pulse Oximetry 93 93 93 Oxygen Delivery Method Oxymask Oxymask Oxymask Oxygen Flow Rate 10 10 10 Sepsis Recent Fever Within 48 Hours Sepsis New/Unexplained Change in Mental Status Sepsis Action Taken by Nursing Oxygen Flow Rate - Titration Pulse Oximetry Post Tiitration 05/24/22 15:38 05/24/22 14:59 05/24/22 15:02 Temperature Temperature Source Pulse Rate 123 H 131 H Pulse Rate [Apical] Pulse Rate from SpO2 Sensor 130 H Pulse Rhythm Respiratory Rate 20 Respiratory Effort / Characteristics Respiratory Depth Respiratory Pattern Blood Pressure Blood Pressure Mean Pulse Oximetry 91 91 Oxygen Delivery Method Oxymask CPAP Free Flow/Blow- by Oxygen Flow Rate 10 Sepsis Recent Fever Within 48 Hours Sepsis New/Unexplained Change in Mental Status Sepsis Action Taken by Nursing Oxygen Flow Rate - Titration Pulse Oximetry Post Tiitration 05/24/22 15:30 05/24/22 15:30 05/24/22 16:00 Temperature Temperature Source Pulse Rate 128 H Pulse Rate [Apical] Pulse Rate from SpO2 Sensor 128 H Pulse Rhythm Respiratory Rate 24 Respiratory Effort / Characteristics Respiratory Depth Respiratory Pattern Blood Pressure 195/97 H 142/76 H Blood Pressure Mean 129 98 Pulse Oximetry 92 Oxygen Delivery Method Oxygen Flow Rate Sepsis Recent Fever Within 48 Hours Sepsis New/Unexplained Change in Mental Status Sepsis Action Taken by Nursing Oxygen Flow Rate - Titration Pulse Oximetry Post Tiitration 05/24/22 16:00 05/24/22 16:30 05/24/22 16:30 Temperature Temperature Source Pulse Rate 121 H 128 H Pulse Rate [Apical] Pulse Rate from SpO2 Sensor 124 H 130 H Pulse Rhythm Respiratory Rate 27 H 46 H Respiratory Effort / Characteristics Respiratory Depth Respiratory Pattern Blood Pressure 134/84 Blood Pressure Mean 100 Pulse Oximetry 94 92 Oxygen Delivery Method Oxygen Flow Rate Sepsis Recent Fever Within 48 Hours Sepsis New/Unexplained Change in Mental Status Sepsis Action Taken by Nursing Oxygen Flow Rate - Titration Pulse Oximetry Post Tiitration 05/24/22 17:00 05/24/22 17:00 Temperature Temperature Source Pulse Rate 128 H Pulse Rate [Apical] Pulse Rate from SpO2 Sensor 126 H Pulse Rhythm Respiratory Rate 31 H Respiratory Effort / Characteristics Respiratory Depth Respiratory Pattern Blood Pressure 157/83 H Blood Pressure Mean 107 Pulse Oximetry 89 L Oxygen Delivery Method Oxygen Flow Rate Sepsis Recent Fever Within 48 Hours Sepsis New/Unexplained Change in Mental Status Sepsis Action Taken by Nursing Oxygen Flow Rate - Titration Pulse Oximetry Post Tiitration General: Well developed well nourished in no acute distress, breathing comfortably on room air. Normal speech HEENT: Normal cephalic atraumatic. Pupils are equal round and reactive to light. Extraocular movements are intact. Oropharynx is pink with moist mucous membranes. No swelling of the mouth lips or tongue. Neck: Supple with a midline trachea. No meningeal signs or stiffness, no JVD or bruits. No Stridor. Chest: Wheezes to auscultation bilaterally. No wheezes or rhonchi. Mild increased work of breathing. Heart: Regular rate and rhythm without murmurs or gallops. Abdomen: Soft nontender, nondistended without rebound guarding or rigidity. Extremities: No cyanosis clubbing or edema. No calf tenderness or assymetry Spine/Back. Non tender to palpation. No CVA tenderness Skin: Good turgor without rashes. Neurologic exam: Cranial nerves two through 12 are intact. Motor and sensation are intact and symmetrical throughout. Course Administered Medications Famotidine (Famotidine 20 Mg Tab) 20 mg PO BID MENDY Stop: 06/23/22 21:29 Last Admin: 05/24/22 22:08 Dose: 20 mg Documented By: ASMITA Lactated Ringer's (Lr) 1,000 mls @ 500 mls/hr IV .Q2H ONE Stop: 05/24/22 23:44 Last Admin: 05/24/22 21:38 Dose: 500 mls/hr Documented By: ASMITA Methylprednisolone 40 mg/ (Syringe) 0.64 mls @ 1.5 mls/min IV Q8H MENDY Stop: 06/23/22 21:59 Last Admin: 05/24/22 22:34 Dose: 1.5 mls/min Documented By: ASMITA Insulin Aspart (Insulin Aspart Per Unit) 0 units SC ACHS MENDY Stop: 06/23/22 21:29 Last Admin: 05/24/22 22:09 Dose: Not Given Documented By: ASMITA Lamotrigine (Lamotrigine 100 Mg Tab) 250 mg PO BID MENDY Stop: 06/23/22 21:29 Last Admin: 05/24/22 22:11 Dose: 250 mg Documented By: ASMITA Levetiracetam (Levetiracetam 500 Mg Tab) 1,500 mg PO BID MENDY Stop: 06/23/22 21:29 Last Admin: 05/24/22 22:11 Dose: 1,500 mg Documented By: ASMITA Lorazepam (Lorazepam 2 Mg/2 Ml Syr) 0.5 mg IV Q6H PRN; Protocol PRN Reason: Anxiety Stop: 06/23/22 18:29 Last Admin: 05/24/22 19:12 Dose: 0.5 mg Documented By: ALEJANDRO Nortriptyline HCl (Nortriptyline Hcl 25 Mg Cap) 25 mg PO HS MEDNY Stop: 06/23/22 21:09 Last Admin: 05/24/22 22:07 Dose: 25 mg Documented By: ASMITA Discontinued Medications Albuterol (Albuterol 0.083% Nebu Soln 3 Ml Vial) 10 mg NEB NOW STA; Protocol Stop: 05/24/22 15:44 Last Admin: 05/24/22 16:20 Dose: 10 mg Documented By: ASCENCION Heparin Sodium (Porcine) (Heparin Sod (Porcine) 1000 Unit/Ml 10 Ml Vial) 5,000 units IV Q8H MENDY Stop: 06/23/22 21:09 Last Admin: 05/24/22 22:24 Dose: Not Given Documented By: ASMITA Magnesium Sulfate/Dextrose (Magnesium Sulfate / D5w) 1 gm in 100 mls @ 600 mls/hr IV Q10M MENDY Stop: 05/24/22 16:03 Last Infusion: 05/24/22 17:08 Dose: 0 mls/hr Documented By: Admin: 05/24/22 17:08 Dose: 600 mls/hr Documented By: Infusion: 05/24/22 16:35 Dose: 600 mls/hr Documented By: Admin: 05/24/22 16:24 Dose: 600 mls/hr Documented By: ALEJANDRO Lactated Ringer's (Lr) 1,000 mls @ 500 mls/hr IV .Q2H ONE Stop: 05/24/22 21:11 Last Admin: 05/24/22 19:45 Dose: 500 mls/hr Documented By: ALEJANDRO Ceftriaxone Sodium (Rocephin) 2,000 mg in 70 mls @ 140 mls/hr IV NOW STA Stop: 05/24/22 20:20 Last Admin: 05/24/22 23:05 Dose: 140 mls/hr Documented By: ASMITA Doxycycline Hyclate 100 mg/ (Dextrose) 110 mls @ 50 mls/hr IV NOW ONE Stop: 05/24/22 22:26 Last Admin: 05/24/22 22:30 Dose: 50 mls/hr Documented By: ASMITA Ceftriaxone Sodium 2,000 mg/ (Dextrose) 70 mls @ 140 mls/hr IV TODAY@1951 [facility] Stop: 05/24/22 23:00 Last Admin: 05/24/22 22:32 Dose: 140 mls/hr Documented By: ASMITA Miscellaneous Information (Dc All Previously Ordered Diabetes Meds) 1 each N/A ONE ONE Stop: 05/24/22 21:11 Last Admin: 05/24/22 22:06 Dose: Not Given Documented By: ASMITA Potassium Chloride (Potassium Chloride Crtab 20 Meq Tabcr) 20 meq PO NOW STA Stop: 05/24/22 18:37 Last Admin: 05/24/22 19:12 Dose: 20 meq Documented By: RDBryan Potassium Chloride (Potassium Chloride Pwd 20 Meq Pack) 40 meq PO NOW STA Stop: 05/24/22 19:14 Last Admin: 05/24/22 22:05 Dose: 40 meq Documented By: ASMITA Critical Care Time Critical Care Time: Yes Total Critical Care Time: 35 Due to the patient's significant respiratory issues and hypoxemia, she was again given continuous albuterol Atrovent nebs, IV magnesium and had a significant work-up and frequent reassessment evaluation consultation, I have personally spent greater than 35 minutes of critical care time in the direct management of this patient. This includes bedside care, interpretation of diagnostic studies, and testing, discussion with consultants, patient, and family members, and other required patient management activities. This 35 minutes is in excess of all separately billable procedures. Medical Decision Making Differential Diagnosis Asthma exacerbation, COVID, bronchitis, pneumonia, electrolyte or metabolic abnormality Medical Records Attestation: I reviewed the patient's medical records. Home Medications Current Medication List: was personally reviewed by me Laboratory Data Attestation: I reviewed the patient's lab results. Result diagrams: 05/24/22 15:00 05/24/22 15:00 Lab Results 05/24/22 05/24/22 05/24/22 Range/Units 15:00 15:00 15:00 WBC 8.90 (4.8-10.8) K/ul RBC 4.57 (3.93-5.22) M/uL Hgb 14.4 (12.0-16.0) g/dl Hct 42.0 (34.1-44.9) % MCV 91.9 (80.0-100.0) fL MCH 31.5 (25.0-34.0) pg MCHC 34.3 (32.0-36.0) g/dL RDW Std Deviation 45.1 (36.4-46.3) fL RDW Coeff of Thao 13.4 (11.5-14.5) % Plt Count 313 (130-400) K/uL MPV 9.9 (9.4-12.3) fL Immature Gran % (Auto) 0.2 % Neut % (Auto) 81.3 % Lymph % (Auto) 8.2 % [place] % (Auto) 5.5 % Eos % (Auto) 4.5 % Baso % (Auto) 0.3 % Neut # (Auto) 7.23 H (1.4-6.5) K/uL Lymph # (Auto) 0.73 L (1.2-3.4) K/uL [place] # (Auto) 0.49 (0.24-0.82) K/uL Eos # (Auto) 0.40 (0-0.50) K/uL Baso # (Auto) 0.03 (0-0.2) K/uL Immature Gran # (Auto) 0.02 (0.00-0.02) K/uL PT 10.5 (9.0-12.0) Seconds INR 1.0 (0.9-1.1) APTT 27.9 (21.0-31.0) Seconds PTT Ratio 1.0 Sodium 139 (136-145) mmol/L Potassium 3.4 L (3.5-5.1) mmol/L Chloride 106 (98-107) mmol/L Carbon Dioxide 23 (21-32) mmol/L Anion Gap 10 (3-11) BUN 7 (6-23) mg/dl Creatinine 0.73 (0.6-1.2) mg/dl Est Cr Clr Drug Dosing 148.6 ml/min Est GFR ( Amer) 131.7 ml/min Est GFR (Non-Af Amer) 113.7 ml/min BUN/Creatinine Ratio 9.6 L (10-20) Glucose 101 H (70-99(Fasting)) mg/dl Calcium 9.3 (8.5-10.1) mg/dl Magnesium 1.7 (1.7-2.4) mg/dl Total Bilirubin 0.4 (0.2-1.0) mg/dl AST 13 (13-39) U/L ALT 21 (7-52) U/L Alkaline Phosphatase 59 (34-104) U/L Troponin I High Sens 3.5 (0-14) pg/ml Total Protein 7.4 (6.0-8.3) gm/dl Albumin 4.3 (3.4-5.0) gm/dl Globulin 3.1 (2.5-4.0) gm/dl Albumin/Globulin Ratio 1.4 (0.9-2) Lipase 14 (11-82) U/L HCG, Qual (Negative) Adenovirus (PCR) (NotDetected) B. pertussis DNA (PCR) (NotDetected) B.parapertussis DNA PCR (NotDetected) C. pneumoniae DNA (PCR) (NotDetected) Coronavirus OC43 (PCR) (NotDetected) Coronavirus HKU1 (PCR) (NotDetected) Coronavirus 229E (PCR) (NotDetected) SARS-CoV-2 (PCR) (NotDetected) Coronavirus NL63 (PCR) (NotDetected) Human Metapneumovir PCR (NotDetected) Influenza Type A (PCR) (NotDetected) Influenza Type B (PCR) (NotDetected) M. pneumoniae (PCR) (NotDetected) Parainfluenza 1 (PCR) (NotDetected) Parainfluenza 2 (PCR) (NotDetected) Parainfluenza 3 (PCR) (NotDetected) Parainfluenza 4 (PCR) (NotDetected) RSV (PCR) (NotDetected) Entero/Rhino (PCR) (NotDetected) 05/24/22 05/24/22 Range/Units 15:00 16:20 WBC (4.8-10.8) K/ul RBC (3.93-5.22) M/uL Hgb (12.0-16.0) g/dl Hct (34.1-44.9) % MCV (80.0-100.0) fL MCH (25.0-34.0) pg MCHC (32.0-36.0) g/dL RDW Std Deviation (36.4-46.3) fL RDW Coeff of Thao (11.5-14.5) % Plt Count (130-400) K/uL MPV (9.4-12.3) fL Immature Gran % (Auto) % Neut % (Auto) % Lymph % (Auto) % [place] % (Auto) % Eos % (Auto) % Baso % (Auto) % Neut # (Auto) (1.4-6.5) K/uL Lymph # (Auto) (1.2-3.4) K/uL [place] # (Auto) (0.24-0.82) K/uL Eos # (Auto) (0-0.50) K/uL Baso # (Auto) (0-0.2) K/uL Immature Gran # (Auto) (0.00-0.02) K/uL PT (9.0-12.0) Seconds INR (0.9-1.1) APTT (21.0-31.0) Seconds PTT Ratio Sodium (136-145) mmol/L Potassium (3.5-5.1) mmol/L Chloride (98-107) mmol/L Carbon Dioxide (21-32) mmol/L Anion Gap (3-11) BUN (6-23) mg/dl Creatinine (0.6-1.2) mg/dl Est Cr Clr Drug Dosing ml/min Est GFR ( Amer) ml/min Est GFR (Non-Af Amer) ml/min BUN/Creatinine Ratio (10-20) Glucose (70-99(Fasting)) mg/dl Calcium (8.5-10.1) mg/dl Magnesium (1.7-2.4) mg/dl Total Bilirubin (0.2-1.0) mg/dl AST (13-39) U/L ALT (7-52) U/L Alkaline Phosphatase (34-104) U/L Troponin I High Sens (0-14) pg/ml Total Protein (6.0-8.3) gm/dl Albumin (3.4-5.0) gm/dl Globulin (2.5-4.0) gm/dl Albumin/Globulin Ratio (0.9-2) Lipase (11-82) U/L HCG, Qual Negative (Negative) Adenovirus (PCR) Not Detected (NotDetected) B. pertussis DNA (PCR) Not Detected (NotDetected) B.parapertussis DNA PCR Not Detected (NotDetected) C. pneumoniae DNA (PCR) Not Detected (NotDetected) Coronavirus OC43 (PCR) Not Detected (NotDetected) Coronavirus HKU1 (PCR) Not Detected (NotDetected) Coronavirus 229E (PCR) Not Detected (NotDetected) SARS-CoV-2 (PCR) Not Detected (NotDetected) Coronavirus NL63 (PCR) Not Detected (NotDetected) Human Metapneumovir PCR Not Detected (NotDetected) Influenza Type A (PCR) Not Detected (NotDetected) Influenza Type B (PCR) Not Detected (NotDetected) M. pneumoniae (PCR) Not Detected (NotDetected) Parainfluenza 1 (PCR) Not Detected (NotDetected) Parainfluenza 2 (PCR) Not Detected (NotDetected) Parainfluenza 3 (PCR) Not Detected (NotDetected) Parainfluenza 4 (PCR) Not Detected (NotDetected) RSV (PCR) Not Detected (NotDetected) Entero/Rhino (PCR) DETECTED A* (NotDetected) Imaging Data Attestation: I personally reviewed and interpreted this imaging study as follows: My Impression: Chest x-rayno acute infiltrate, failure, pneumothorax Radiologist's Impression: Chest X-Ray 05/24/22 15:17 XR chest 1V portable HISTORY: 26 years-old Female SOB acute shortness of breath COMPARISON: 08/10/2021 TECHNIQUE: Portable AP view of the chest FINDINGS: Cardiac mediastinal and hilar silhouettes are within normal limits. Subsegmental left basilar densities. No pneumothorax, pleural effusion or overt pulmonary edema. Bones of the chest appear grossly intact. IMPRESSION: Subsegmental mild left lung base opacities suggestive of atelectasis versus pneumonia. ACT 112: Negative or not required by law. The above report was generated using voice recognition software. It may contain grammatical, syntax or spelling errors. Electronically signed by: Shravan Nj M.D. 05/24/2022 3:54 PM ECG Data Attestation: I personally reviewed and interpreted this ECG as follows: Indication: + SOB/dyspnea Rate (beats per minute): 125 Rhythm: + sinus tachycardia and + other (Poor baseline) ECG Intervals/blocks: + Right Bundle branch block, + Normal QT and + Normal NC ECG Hope: + Normal ECG ST segments: + Normal ST segments ECG Findings: + Other (Nonspecific T wave abnormalities); no PACs or no PVCs Comparison ECG Date: from (06/10/21) Change: the following changes noted (Rate has decreased overwise no change) MDM Narrative This patient comes in as described above. She was a priority patient and the nurses asked me to see her promptly as she was short of breath and hypoxemic. When I went into see her she is on supplemental oxygen but does not appear to significantly tachypneic, she is very wheezy on my exam. I did give her continuous albuterol/ Atrovent nebs over 1 hour. She has received steroids and IM Rocephin earlier today. I also gave her magnesium IV 2 g. Multiple blood testing was obtained she was reassessed frequently. Her bio fire came back posi tive for rhinovirus. Chest x-ray shows questionable infiltrate versus atelectasis in the base. EKG shows tachycardia but no bump in her troponin. COVID testing was negative. test was negative. She still appears to be hypoxemic and requiring oxygen and with her hypoxemia.I do think she needs to be admitted for further treatment and evaluation. I have consulted the [employer] [facility] to see in ER for these measures. Continuous cardiac monitoring: Orders placed in EMR for continuous cardiac monitoring. Diaz interpretation patient to be in sinus tachycardia with a rate of 125 Impression & Plan Acute severe asthma, Lab test negative for COVID-19 virus, Rhinovirus, Hypoxemia, Not currently Discharge Plan Visit Data Chief Complaint: Shortness of Breath/Dyspnea Stated Complaint: SOB ED Provider: Roger Rubin Discharge Problem: Acute severe asthma, Lab test negative for COVID-19 virus, Rhinovirus, Hypoxemia, Not currently Patient Disposition: Admitted As Inpatient Discharge Instructions Interventions: ED Discharge Assessment Last Done: 05/24/22 21:11
--- NOTE | 2022-05-24 15:55 | XRay Report ---
XR chest 1V portable HISTORY: 26 years-old Female SOB acute shortness of breath COMPARISON: 08/10/2021 TECHNIQUE: Portable AP view of the chest FINDINGS: Cardiac mediastinal and hilar silhouettes are within normal limits. Subsegmental left basilar densiti es. No pneumothorax, pleural effusion or overt pulmonary edema. Bones of the chest appear grossly int act. IMPRESSION: Subsegmental mild left lung base opacities suggestive of atelectasis versus pneumonia. ACT 112: Negative or not required by law. The above report was generated using voice recognition software. It may contain grammatical, syntax o r spelling errors. Electronically signed by: Shravan Nj M.D. 05/24/2022 3:54 PM
--- NOTE | 2022-05-24 16:06 | Electrocardiogram Report ---
Test Reason : Blood Pressure : / mmHG Vent. Rate : 125 BPM Atrial Rate : 129 BPM P-R Int : 000 ms QRS Dur : 088 ms QT Int : 424 ms P-R-T Axes : 000 076 083 degrees QTc Int : 611 ms Sinus tachycardia Nonspecific T wave abnormality Abnormal ECG When compared with ECG of 10-AUG-2021 06:37, Vent. rate has increased BY 67 BPM Nonspecific T wave abnormality now evident in Lateral leads Confirmed by Rene Langston ([id number]) on 05/24/2022 4:06:31 PM Referred By: ED Confirmed By:Rene Langston
[2022-05-24 16:15] LABS: Basophils # (auto) 0.03 K/uL (0-0.2); Basophils % (auto) 0.3 %; Eosinophils % (auto) 4.5 %; Hemoglobin 14.4 g/dl (12.0-16.0); Immature Granulocytes # (auto) 0.02 K/uL (0.00-0.02); Immature Granulocytes % (auto) 0.2 %; Lymphocytes # (auto) 0.73 K/uL (1.2-3.4); Lymphocytes % (auto) 8.2 %; Mean Corpuscular Hemoglobin 31.5 pg (25.0-34.0); Mean Corpuscular Hgb Conc 34.3 g/dL (32.0-36.0); Mean Corpuscular Volume 91.9 fL (80.0-100.0); Mean Platelet Volume 9.9 fL (9.4-12.3); Monocytes # (auto) 0.49 K/uL (0.24-0.82); Monocytes % (auto) 5.5 %; Neutrophils # (auto) 7.23 K/uL (1.4-6.5); Neutrophils % (auto) 81.3 %; Platelet Count 313 K/uL (130-400); RDW Coefficient of Variation 13.4 % (11.5-14.5); RDW Standard Deviation 45.1 fL (36.4-46.3); Red Blood Count 4.57 M/uL (3.93-5.22)
[2022-05-24 16:18] LABS: Pregnancy Test, Serum Negative (Negative)
[2022-05-24] MEDS: MAGNESIUM SULFATE / D5W 1 GM/100 ML BAG IV SCH ×2 (16:24→17:08)
[2022-05-24 16:27] LABS: Partial Thromboplastin Time 27.9 Seconds (21.0-31.0); Prothrombin Time 10.5 Seconds (9.0-12.0)
[2022-05-24 16:31] LABS: Troponin I High Sensitivity 3.5 pg/ml (0-14)
[2022-05-24 16:41] LABS: Albumin Globulin Ratio 1.4 (0.9-2); Albumin Level 4.3 gm/dl (3.4-5.0); BUN Creatinine Ratio 9.6 (10-20); Bilirubin,Total 0.4 mg/dl (0.2-1.0); Calcium 9.3 mg/dl (8.5-10.1); Creatinine Clr Calc Pharmacy 148.6 ml/min; Est GFR (African American) 131.7 ml/min; Est GFR (Non-African American) 113.7 ml/min; Globulin 3.1 gm/dl (2.5-4.0); Magnesium 1.7 mg/dl (1.7-2.4); Potassium 3.4 mmol/L (3.5-5.1); Total Protein 7.4 gm/dl (6.0-8.3)
--- NOTE | 2022-05-24 17:00 | History & Physical Report ---
Date of Service May 24, 2022 Assessment & Plan (1) Asthma exacerbation: (2) Hypothyroidism: (3) Dyslipidemia: (4) Anxiety: (5) H/O deep venous thrombosis: (6) H/O tonic-clonic seizures: (7) Diabetes type 2, controlled: (8) Overactive bladder: (9) GERD (gastroesophageal reflux disease): Plan 26 y/o with SOB x 24 hours. H/O asthma; used Albuterol neb at home Q2 hours x 24 hours. Received steroids from PCP prior to coming in. Received 1 hour neb in ED. Biofire pending. H/O anxiety, seizures, DVT (s/p surgery 2013 was on anticoags x3 months). Hypoxic on 10L oxymask; D-dimer pending. Asthma exacerbation: Patient has used Albuterol neb Q2 at home for the past 24 hours. CXR in ED some opacities suggestive of atelectasis vs PNA. One hour neb completed in ED and received an IM dose of steroids with her PCP Still visibly SOB; able to speak in complete sentences, but winded. On 10L oxymask SpO2 91%. both insp and exp wheezing Takes Singulair, Ventolin, Fluticasone inhaler, and Albuterol PRN Start methylprednisone 40mg IV TID HOLD on abx; does not appear infective; procalcitonin pending ; afebrile, without leukocytosis; reeval in AM Anxiety: could be a contributing factor to her worsening SOB Takes Ativan PRN; has not taken any lately H/O DVT: s/p left hip surgery in 2013. Was on anticoagulation oral x3 months Will check D-Dimer to r/o PE H/O Seizures: Has not had one in approximately 7 years. Follows with Lisset Raya PA-C OPT Takes Keppra 1500mg QAM/QHS; continue Hypothyroidism: Takes Synthroid; continue 01/2022: TSH 1.15 overactive bladder: Follows with Urology; Dr. Caraballo OPT Per review of EMR: has microhematuria associated with obstructive voiding symptoms Had a cystoscopy 04/2022 Takes Flomax; continue Pre-diabetes: Takes Metformin; D/C while inpatient FSBS and SSI while inpt 11/2021: A1C 4.7; Check A1C in AM SSI: Correction Factor 15, Carb ratio 5 Consult Glycemic pharm due to increased steroid use --Goal BSG Range: Low 100 mg/dL, High 140 mg/dL --Correction Factor: 15 mg/dL/unit --Carbohydrate ratio = 7 g/unit --BSGs ACHS if eating, q6h if npo GERD: Takes Esomeprazole and Pepcid; continue Disposition: PCP: Dr. Mendez VTE Prophylaxis: Heparin SQ Code: Full Point of Contact: Amber: [phone] meghann Mcfarlanefriend: [phone] I personally was able to review all current laboratory work and diagnostic images obtained in the ED. Additionally, I was able to review the patients past medication reconciliation and history with direct visualization in the patients chart. I collaborated with Dr. Rose regarding this patients plan of care. History of Present Illness Chief Complaint: SOB Primary Care Provider: Melissa Kolb DO MS. Monahan is a 26 year old female who presented to the [facility] with increased SOB and wheezing. She was seen by her PCP today and received IM steroids with a nebulizer treatment. She called 911 from home as she felt she could not catch her breath and had increasing wheezing. CXR shows mild left lung opacities and possible atelectasis vs PNA. She has a PMH that includes: anxiety, H/O DVT, H/O seizures, diabetes type 2, HLD, , acanthosis nigricans, hypothyroidism, GERD, PTSD, and depression. Patient is sitting in her bed in apparent distress. She is able to speak in complete sentences; however, becomes quite winded and her SpO2 on 10L oxymask is 91%. Due to her history of DVT, need to consider PE; D-Dimer pending. Pt denies CORTEZ, dizziness (although says she has orthostasis), CP, palpitations, N/V/D, no recent trauma and no recent falls. Patient will be admitted under Hospitalist service for further evaluation and management. Please see A/P for further details. Allergies Allergy/AdvReac Type Severity Reaction Status Date / Time hydromorphone Allergy Severe Respirations Verified 10/08/21 09:32 stopped. peanut Allergy Severe ALL Verified 10/08/21 09:32 NUTS-HIVES, SOB amoxicillin Allergy Intermediate Rash Verified 10/08/21 09:32 morphine Allergy Intermediate Hives Verified 10/08/21 09:32 oxycodone Allergy Intermediate Hives Verified 10/08/21 09:32 adhesive AdvReac Mild Rash Verified 10/08/21 09:32 Home Medications Medication Instructions Recorded Confirmed Type albuterol sulfate 90 mcg/actuation 2 puff inhalation Q6H PRN 08/19/18 05/24/22 History aerosol inhaler (Ventolin HFA) Shortness Of Breath Or Wheezing folic acid 1 mg tablet 3 mg PO QAM 08/19/18 05/24/22 History lamotrigine 200 mg tablet 200 mg PO BID 08/19/18 05/24/22 History (Lamictal) levetiracetam 1,000 mg tablet 1,000 mg PO BID 08/19/18 05/24/22 History (Keppra) levetiracetam 500 mg tablet 500 mg PO BID 08/19/18 05/24/22 History (Keppra) nortriptyline 25 mg capsule 25 mg PO HS 08/19/18 05/24/22 History cyanocobalamin (vitamin B-12) 1,000 mcg PO QAM 08/02/19 05/24/22 History 1,000 mcg tablet (Vitamin B-12) magnesium oxide 400 mg (241.3 mg 400 mg PO QAM 08/02/19 05/24/22 History magnesium) tablet albuterol sulfate 2.5 mg/3 mL 2.5 mg inhalation Q4H PRN Wheezing 07/29/20 05/24/22 History (0.083 %) solution for nebulization famotidine 20 mg tablet 20 mg PO BID 07/29/20 05/24/22 History lamotrigine 100 mg tablet 50 mg PO BID 07/29/20 05/24/22 History levothyroxine 125 mcg tablet 125 mcg PO QAM 07/29/20 05/24/22 History (Synthroid) montelukast 10 mg tablet 10 mg PO QAM 07/29/20 05/24/22 History omeprazole 20 mg capsule,delayed 20 mg PO BID 07/29/20 05/24/22 History release fluticasone 250 mcg-salmeterol 50 1 ea inhalation BID 11/01/20 05/24/22 History mcg/dose blistr powdr for inhalation (Advair Diskus) esomeprazole magnesium 20 mg 20 mg PO BID 06/28/21 05/24/22 History capsule,delayed release Past Med/Surg History Medical History (Updated 05/24/22 @ 18:17 by MIRACLE Meza) Acanthosis nigricans, acquired Anxiety Anxiety Asthma Asthma exacerbation Depression Diabetes type 2, controlled Dyslipidemia GERD (gastroesophageal reflux disease) H/O deep venous thrombosis H/O tonic-clonic seizures Heart palpitations Hypothyroidism Inappropriate sinus tachycardia F/U [facility]. On Corlanor, which has significantly improved symptoms. Kidney stone HX OAB (overactive bladder) Obesity Ovarian cyst Overactive bladder PTSD (post-traumatic stress disorder) Seizures LAST SEIZURE ~ 08/2019. F/U DR VILLANUEVA [facility]. Most recent OV 03/2020, stable, deemed OK for endoscopy. Surgical History H/O colonoscopy H/O esophagogastroduodenoscopy H/O foot surgery History of cystoscopy TO REMOVE KIDNEY STONES History of myringotomy Nausea and vomiting after administration of anesthetic agent X 1 S/P laparoscopic cholecystectomy S/P removal of ovarian cyst Status post Mohs surgery Family History Mother Family history of diabetes mellitus Grandmother (Maternal) Family history of diabetes mellitus Social History Smoking Status: Current some day smoker Tobacco Type: Cigarettes Second Hand Exposure: No; Hx Alcohol Use: No Hx Substance Use: No Preferred Language: Greenlandic Communication Ability: Effective Dictaphone Operator Required: No Beliefs That Will Affect Care: None Current Living Situation: Parent and Family Feels Safe at Home: Yes Assistive Devices: Brace/Splint/Immobilizer, Denture - Upper, Denture - Lower and Glasses Review of Systems Review of Systems: Neuro: (-) Falls, trauma, slurred speech HEENT: (-) CORTEZ, dizziness, dysphagia, visual or auditory changes CV: (-) CP, palpitations, swelling Resp: (+) SOB GI: (-) appetite changes, N/V/D, bowel changes : (+) overactive bladder Skin: (-) rashes Psych: (+) anxiety, depression Physical Exam Physical Exam: Neuro: AAOx4, PERRLA, no aphagia, memory changes, CNII-XII grossly intact HEENT: head normocephalic, moist mucus membranes CV: S1/S2, tachycardic (-) M/G/R, (-) edema, cap refill < 3 seconds Resp: On 10L oxymask; insp and exp wheezes GI: Abdomen large, S/NT/ND, Ax4 bowel sounds, (-) CVA tenderness Musculoskeletal: 5/5 B/L UE strength, 5/5 B/L LE strength. No gait disturbance Skin: (-) rashes , (-) erythema. Psych: euthymic mood Results & Data Results & Data ([facility]) Vital Signs (Past 12 Hours) Vital Signs Temp Pulse Pulse Resp BP Pulse Ox O2 Del Method 05/24/22 16:21 127 H 27 H 93 Oxymask 05/24/22 15:17 131 H 28 H 90 Nasal Cannula 05/24/22 14:50 88 L Nasal Cannula 05/24/22 14:50 36.8 C 131 H 28 H 162/97 H 88 L Room Air O2 Flow Rate 05/24/22 16:21 10 05/24/22 15:17 3 05/24/22 14:50 0 05/24/22 14:50 Laboratory Results Short CBC 05/24/22 Range/Units 15:00 WBC 8.90 (4.8-10.8) K/ul Hgb 14.4 (12.0-16.0) g/dl Hct 42.0 (34.1-44.9) % Plt Count 313 (130-400) K/uL BMP 05/24/22 15:00 Sodium 139 Potassium 3.4 L Chloride 106 Carbon Dioxide 23 BUN 7 Creatinine 0.73 Glucose 101 H Calcium 9.3 Liver Function 05/24/22 Range/Units 15:00 Total Bilirubin 0.4 (0.2-1.0) mg/dl AST 13 (13-39) U/L ALT 21 (7-52) U/L Alkaline Phosphatase 59 (34-104) U/L Albumin 4.3 (3.4-5.0) gm/dl Diagnostic Findings Chest X-Ray 05/24/22 15:17 XR chest 1V portable HISTORY: 26 years-old Female SOB acute shortness of breath COMPARISON: 08/10/2021 TECHNIQUE: Portable AP view of the chest FINDINGS: Cardiac mediastinal and hilar silhouettes are within normal limits. Subsegmental left basilar densities. No pneumothorax, pleural effusion or overt pulmonary edema. Bones of the chest appear grossly intact. IMPRESSION: Subsegmental mild left lung base opacities suggestive of atelectasis versus pneumonia. ACT 112: Negative or not required by law. The above report was generated using voice recognition software. It may contain grammatical, syntax or spelling errors. Electronically signed by: Shravan Nj M.D. 05/24/2022 3:54 PM ECG Additional Comments: Vent. Rate : 125 BPM Atrial Rate : 129 BPM P-R Int : 000 ms QRS Dur : 088 ms QT Int : 424 ms P-R-T Axes : 000 076 083 degrees QTc Int : 611 ms Sinus tachycardia Nonspecific T wave abnormality Abnormal ECG When compared with ECG of 10-AUG-2021 06:37, Vent. rate has increased BY 67 BPM Nonspecific T wave abnormality now evident in Lateral leads Code Status & VTE Plan Code Status Full Code in the event of cardiac or respiratory arrest VTE Prophylaxis Plan VTE Prophylaxis will be ordered: Yes Supervising Physician Co-Signing Physician Notes I agree with evaluation and treatment by MELLO. I evaluated and examined the patient myself personally. She is a 26-year-old female with past medical history of asthma, current smoker of about half a pack of cigarettes a day, morbid obesity, depression, diabetes mellitus type 2, dyslipidemia, GERD, hypothyroidism who started having problem with shortness of breath and wheezing. Patient does not remember a sick contact. She had occasional dry cough but denies any fever or chills. She presented to her primary care physician who recommended her to be started on antibiotic and after receiving a dose of IV Solu-Medrol to be continued on oral prednisone. Patient was severely short of breath and decided to come to the hospital for further evaluation and treatment. She required oxygen for acute respiratory failure with hypoxia. She is currently on 10 L/min of oxygen. Upon examination, patient is morbidly obese. Tachycardic, generalized bilateral inspiratory and expiratory wheezes Abdomen is obese, soft, not tender or distended, bowel sounds are normal Extremity examination is negative for cyanosis, clubbing or edema. Admit to telemetry for closer monitoring As needed nebs Start IV steroid We will hold off antibiotic before the results of procalcitonin Check D-dimer. Patient has a history of DVT and is morbidly obese Continue chronic medications as previously ordered
[2022-05-24] MEDS ORDERED: LORazepam 2 MG/2 ML SYR IV PRN (18:27)
[2022-05-24 18:33] LABS: Adenovirus PCR Not Detected (NotDetected); Bordetella parapertussis PCR Not Detected (NotDetected); Bordetella pertussis PCR Not Detected (NotDetected); Chlamydia pneumoniae PCR Not Detected (NotDetected); Coronavirus 229E PCR Not Detected (NotDetected); Coronavirus CoV-2 (COVID19)PCR Not Detected (NotDetected); Coronavirus HKU1 PCR Not Detected (NotDetected); Coronavirus NL63 PCR Not Detected (NotDetected); Coronavirus OC43PCR Not Detected (NotDetected); Human Metapneumovirus PCR Not Detected (NotDetected); Influenza A PCR Not Detected (NotDetected); Influenza B PCR Not Detected (NotDetected); Mycoplasma pneumoniae PCR Not Detected (NotDetected); Parainfluenza Virus 1 PCR Not Detected (NotDetected); Parainfluenza Virus 2 PCR Not Detected (NotDetected); Parainfluenza Virus 3 PCR Not Detected (NotDetected); Parainfluenza Virus 4 PCR Not Detected (NotDetected); Respiratory Syncytial VirusPCR Not Detected (NotDetected)
[2022-05-24 18:35] LABS: Rhinovirus/Enterovirus PCR DETECTED (NotDetected)
[2022-05-24] MEDS ORDERED: POTASSIUM CHLORIDE CRTAB 20 MEQ TABCR PO STA (18:36)
[2022-05-24] MEDS ORDERED: LACTATED RINGER'S 1,000 ML IV ONE ×2 (19:12→21:45)
[2022-05-24] MEDS ORDERED: POTASSIUM CHLORIDE PWD 20 MEQ PACK PO STA (19:13)
[2022-05-24 19:16] LABS: D Dimer 220 ug/L FEU (0-500)
[2022-05-24 19:51] LABS: Base Excess ABG -3.8 mEq/L (-9-1.8); HCO3 ABG 18 mmol/L (19-24); Oxygen Saturation ABG 97.1 % (90-95); PCO2 ABG 24 mmHg (35-46); PO2 ABG 78 mmHg (80-95); pH ABG 7.48 (7.35-7.45)
[2022-05-24] MEDS ORDERED: cefTRIAXone SODIUM 2,000 MG in DEXTROSE 5% 50 ML IV SCH (19:51)
[2022-05-24] MEDS ORDERED: cefTRIAXone SODIUM 2,000 MG/70 ML BAG IV STA (19:51)
--- NOTE | 2022-05-24 19:52 | Communication Note ---
Date of Service: May 24, 2022 Patient with cough symptoms productive of brown sputum. AP Sepsis secondary to CAP CS, check lactic acid Ceftriaxone and Doxycycline
[2022-05-24 19:56] LABS: Allen Test Pos (Pos)
[2022-05-24] MEDS ORDERED: DOXYCYCLINE HYCLATE 100 MG in DEXTROSE 5% 100 ML IV ONE (20:15)
[2022-05-24] MEDS ORDERED: ALUMINUM/MAGNESIUM SUSP 30 ML UDC PO PRN (21:10)
[2022-05-24] MEDS ORDERED: GLUCAGON FOR INJ 1 MG VIAL SQ PRN (21:10)
[2022-05-24] MEDS ORDERED: DEXTROSE 50% 50 ML SYRINGE IV PRN (21:10)
[2022-05-24] MEDS ORDERED: lamoTRIgine 25 MG TAB PO SCH (21:10)
[2022-05-24] MEDS ORDERED: NON-FORMULARY MEDICATION (Esomeprazole Magnesium 20 mg capsule,delayed release(DR/EC)) PO SCH (21:10)
[2022-05-24] MEDS ORDERED: GLUCOSE 10 TAB/TUBE PO PRN (21:10)
[2022-05-24] MEDS ORDERED: HEPARIN SOD (PORCINE) 1000 UNIT/ML 10 ML VIAL IV SCH (21:10)
[2022-05-24] MEDS ORDERED: DC ALL PREVIOUSLY ORDERED DIABETES MEDS ONE (21:10)
[2022-05-24] MEDS ORDERED: levETIRAcetam 500 MG TAB PO SCH (21:10)
[2022-05-24] MEDS ORDERED: MAGNESIUM HYDROXIDE SUSP 30 ML UDC PO PRN (21:10)
[2022-05-24] MEDS ORDERED: ONDANSETRON INJ 2 MG/ML 2 ML VIAL IV PRN (21:10)
[2022-05-24] MEDS ORDERED: GLUCOSE 40% GEL 15 GM TUBE PO PRN (21:10)
[2022-05-24] MEDS ORDERED: ALBUTEROL 0.083% NEBU SOLN 3 ML VIAL INH PRN (21:10)
[2022-05-24] MEDS ORDERED: CARBOHYDRATES FOR HYPOGLYCEMIA PO PRN (21:10)
[2022-05-24] MEDS ORDERED: FLUARIX QUADRIVALENT 0.5 ML SYR IM ONE (21:45)
[2022-05-24] MEDS ORDERED: MELATONIN 3 MG TAB PO PRN (21:53)
[2022-05-24] MEDS ORDERED: PNEUMOCOCCAL POLYSACCHARIDES 25 MCG/0.5 ML VIAL/SYR IM ONE (22:00)
[2022-05-24] MEDS: NORTRIPTYLINE HCL 25 MG CAP PO SCH (22:07)
[2022-05-24] MEDS: FAMOTIDINE 20 MG TAB PO SCH (22:08)
[2022-05-24] MEDS: INSULIN ASPART PER UNIT SC SCH (22:09)
[2022-05-24] MEDS: lamoTRIgine 100 MG TAB PO SCH (22:11)
[2022-05-24] MEDS: levETIRAcetam 500 MG TAB PO SCH (22:11)
[2022-05-24] MEDS: methylPREDNISolone 40 MG in SYRINGE 0 ML IV SCH (22:34)
[2022-05-24] MEDS ORDERED: hydrOXYzine HCl 10 MG TAB PO STA (23:09)
[2022-05-24 23:27] LABS: Appearance Urine Clear (Clear); Bacteria Urine Automated Negative (Negative); Bilirubin Urine Negative (Negative); Blood Urine 1+ (Negative); Cast Urine Automated 0 /lpf (0-5); Color Urine Yellow; Epithelial Cell Urine Auto >30 /lpf (0-5); Glucose Urine UA Negative (Negative); Ketones Urine Negative (Negative); Leukocyte Esterase Urine Negative (Negative); Nitrite Urine Negative (Negative); Protein Urine Negative (Negative); Specific Gravity Urine 1.009 (1.000-1.030); Urobilinogen Urine Negative (Negative); WBC Urine Automated 0 /hpf (0-5); pH Urine 7.5 (4.5-7.5)
[2022-05-25] MEDS: LEVALBUTEROL 1.25MG/0.5ML NEB INH SCH ×4 (00:17→19:14)
[2022-05-25] MEDS: IPRATROPIUM BROMIDE NEB SOLN 0.02% 2.5 ML VIAL INH SCH ×4 (00:17→19:14)
[2022-05-25] MEDS ORDERED: XOPENEX/ATROVENT 1.25mg/0.5MG NEB COMBO NEB SCH (01:00)
[2022-05-25] MEDS ORDERED: LACTATED RINGER'S 1,000 ML IV ONE ×2 (01:21→06:39)
[2022-05-25] MEDS ORDERED: LACTATED RINGER'S 1,000 ML IV SCH ×2 (03:30)
[2022-05-25 06:06] LABS: Hematocrit (blood only) 40.9 % (34.1-44.9); Hemoglobin 14.2 g/dl (12.0-16.0); Mean Corpuscular Hemoglobin 31.5 pg (25.0-34.0); Mean Corpuscular Hgb Conc 34.7 g/dL (32.0-36.0); Mean Corpuscular Volume 90.7 fL (80.0-100.0); Mean Platelet Volume 9.6 fL (9.4-12.3); Platelet Count 317 K/uL (130-400); RDW Coefficient of Variation 13.3 % (11.5-14.5); RDW Standard Deviation 44.3 fL (36.4-46.3); Red Blood Count 4.51 M/uL (3.93-5.22); White Blood Count 22.48 K/ul (4.8-10.8)
[2022-05-25 06:28] LABS: BUN Creatinine Ratio 10.8 (10-20); C Reactive Protein 4.67 mg/dl (0-0.5); Calcium 9.3 mg/dl (8.5-10.1); Chol HDL Ratio 3.4 (0-5); Creatinine Clr Calc Pharmacy 163.3 ml/min; Est GFR (Non-African American) 122.5 ml/min; Magnesium 1.8 mg/dl (1.7-2.4); Potassium 4.5 mmol/L (3.5-5.1)
[2022-05-25] MEDS: methylPREDNISolone 40 MG in SYRINGE 0 ML IV SCH ×3 (06:44→21:59)
[2022-05-25] MEDS ORDERED: MAGNESIUM SULFATE / D5W 1 GM/100 ML BAG IV ONE (07:00)
[2022-05-25 07:17] LABS: Estimated Average Glucose 97 mg/dl
[2022-05-25] MEDS: FOLIC ACID 1 MG TAB PO SCH (07:47)
[2022-05-25] MEDS: NICOTINE 14 MG/24 HR PATCH TD SCH (07:48)
[2022-05-25] MEDS: DOXYCYCLINE HYCLATE 100 MG CAP PO SCH ×2 (07:48→19:45)
[2022-05-25] MEDS: MONTELUKAST SODIUM 10 MG TABLET PO SCH (07:48)
[2022-05-25] MEDS: LEVOTHYROXINE SODIUM 125 MCG TABLET PO SCH (07:48)
[2022-05-25] MEDS: MAGNESIUM OXIDE 400 MG TAB PO SCH (07:48)
[2022-05-25] MEDS: levETIRAcetam 500 MG TAB PO SCH ×2 (07:49→19:51)
[2022-05-25] MEDS: CYANOCOBALAMIN (B-12) 500 MCG TABLET PO SCH (07:49)
[2022-05-25] MEDS: FLUTICASONE/VILANTEROL 200/25MCG 14 PUFFS/INHALER INH SCH (07:49)
[2022-05-25] MEDS: FAMOTIDINE 20 MG TAB PO SCH ×2 (07:50→19:47)
[2022-05-25] MEDS: lamoTRIgine 100 MG TAB PO SCH ×2 (07:50→19:48)
--- NOTE | 2022-05-25 07:56 | XRay Report ---
XR chest 1V portable HISTORY: 26 years-old Female post-operative coughing and wheezing acute cough with wheezing COMPARISON: Chest radiograph 05/24/2022 TECHNIQUE: AP view of the chest FINDINGS: Cardiomediastinal and hilar silhouettes are unchanged. Mild ill-defined left lung base densities. Mil d interstitial coarsening. There are new left midlung airspace opacities. IMPRESSION: New left midlung predominant opacities are suspicious for pneumonia. ACT 112: Negative or not required by law. The above report was generated using voice recognition software. It may contain grammatical, syntax o r spelling errors. Electronically signed by: Shravan Nj M.D. 05/25/2022 7:54 AM
[2022-05-25] MEDS: INSULIN ASPART PER UNIT SC SCH ×4 (08:59→20:28)
[2022-05-25] MEDS ORDERED: ENOXAPARIN INJ 40 MG/0.4 ML SYR SQ SCH (09:00)
--- NOTE | 2022-05-25 14:45 | Electrocardiogram Report ---
Test Reason : Blood Pressure : / mmHG Vent. Rate : 102 BPM Atrial Rate : 102 BPM P-R Int : 166 ms QRS Dur : 088 ms QT Int : 352 ms P-R-T Axes : 061 081 072 degrees QTc Int : 458 ms Sinus tachycardia Otherwise normal ECG When compared with ECG of 24-MAY-2022 14:53, Nonspecific T wave abnormality no longer evident in Lateral leads Confirmed by Rene Langston ([id number]) on 05/25/2022 2:45:00 PM Referred By: REFERRED SELF Confirmed By:Rene Langston
[2022-05-25] MEDS: guaiFENesin 200 MG TAB PO SCH ×2 (17:06→21:59)
[2022-05-25] MEDS: ACETAMINOPHEN 325 MG TAB PO PRN (19:46)
[2022-05-25] MEDS: NORTRIPTYLINE HCL 25 MG CAP PO SCH (19:46)
[2022-05-25] MEDS: ENOXAPARIN INJ 40 MG/0.4 ML SYR SQ SCH (19:51)
[2022-05-25] MEDS: PANTOprazole 40 MG TAB PO SCH (20:29)
[2022-05-25] MEDS: cefTRIAXone SODIUM 2,000 MG in DEXTROSE 5% 50 ML IV SCH (21:58)
[2022-05-25] MEDS ORDERED: LORazepam 0.5 MG in SYRINGE 0 ML IV PRN (22:52)
--- NOTE | 2022-05-25 23:47 | Hospitalist Progress Note ---
Date of Service May 25, 2022 Assessment & Plan (1) Asthma exacerbation: (2) Hypothyroidism: (3) Dyslipidemia: (4) Anxiety: (5) H/O deep venous thrombosis: (6) H/O tonic-clonic seizures: (7) Diabetes type 2, controlled: (8) Overactive bladder: (9) GERD (gastroesophageal reflux disease): Plan 26 y/o with SOB x 24 hours. H/O asthma; used Albuterol neb at home Q2 hours x 24 hours. Received steroids from PCP prior to coming in. Received 1 hour neb in ED. Biofire pending. H/O anxiety, seizures, DVT (s/p surgery 2013 was on anticoags x3 months). Hypoxic on 10L oxymask; D-dimer pending. Asthma exacerbation: Present on admission with worsening shortness of breath dexamethasone 40 mg Q8 CXR in ED some opacities suggestive of atelectasis vs PNA. Tested positive for entero/rhinovirus One hour neb completed in ED and received an IM dose of steroid Currently on IV solumedrol 40mg IV q8h and IV abx Continue high flow oxygen Incentive spirometry and flutter valve and mucinex. If respiratory worsening, will consult pulm Continue monitor closely Anxiety: could be a contributing factor to her worsening SOB Takes Ativan PRN; has not taken any lately H/O DVT: s/p left hip surgery in 2013. Was on anticoagulation oral x3 months D-dimer normal H/O Seizures: Has not had one in approximately 7 years. Follows with Lisset Raya PA-C OPT Continue Keppra 1500mg QAM/QHS Hypothyroidism: Takes Synthroid; continue 01/2022: TSH 1.15 overactive bladder: Follows with Urology; Dr. Caraballo OPT Per review of EMR: has microhematuria associated with obstructive voiding symptoms Had a cystoscopy 04/2022 Takes Flomax; continue Pre-diabetes: Most hba1c 5 Continue to hold metformin Continue insulin sliding scale Consult Glycemic pharm due to increased steroid use GERD: Takes Esomeprazole and Pepcid; continue Disposition: PCP: Dr. Mendez VTE Prophylaxis: Heparin SQ Code: Full Point of Contact: Amber: [phone] Denys, boyfriend: [phone] Admission and Anticipated Discharge Date Admission Date: May 24, 2022 Subjective Pt was seen and examined for follow up SOB and PNA Lying in bed with with acute respiratory distress Currently on high flow oxygen She said that she is bring it her phlegm up Denies any chest pain, palpitation, dizziness and SOB Review of Systems Review of Systems: All systems reviewed & are unremarkable except as noted in Subjective Physical Exam Physical Exam: General- No acute distress Head- atraumatic Eyes- PERRL, EOMI, ENT- oropharynx clear Neck- supple, no JVD Lungs- +weezing Heart- regular rhythm; no murmur Abdomen- normal bowel sounds, soft, nontender Extremities- no calf tenderness Neuro- alert, oriented x 3; PERRL, EOMI; no facial palsy; no dysarthria Skin- warm & dry Results & Data Results & Data ([facility]) Vital Signs (Past 12 Hours) Vital Signs Temp Pulse Pulse Pulse Resp BP BP 05/25/22 23:28 113 H 24 05/25/22 21:10 05/25/22 20:00 05/25/22 19:15 130 H 26 H 05/25/22 19:02 39.1 C H 131 H 23 114/71 05/25/22 15:43 107 H 05/25/22 15:43 05/25/22 15:22 36.7 C 112 H 22 113/76 05/25/22 15:10 112 H 26 H 05/25/22 12:09 104 H 22 Pulse Ox Pulse Ox O2 Del Method O2 Del Method O2 Flow Rate O2 Flow Rate FiO2 05/25/22 23:28 93 High Flow Nasal Cannula 30 80 05/25/22 21:10 94 High Flow Nasal Cannula 30 05/25/22 20:00 High Flow Nasal Cannula 05/25/22 19:15 90 High Flow Nasal Cannula 30 80 05/25/22 19:02 90 High Flow Nasal Cannula 30 80 05/25/22 15:43 05/25/22 15:43 High Flow Nasal Cannula 05/25/22 15:22 92 High Flow Nasal Cannula 30 80 05/25/22 15:10 94 High Flow Nasal Cannula 30 80 05/25/22 12:09 87 L High Flow Nasal Cannula 30 75
[2022-05-26] MEDS: LEVALBUTEROL 1.25MG/0.5ML NEB INH SCH ×5 (01:20→19:01)
[2022-05-26] MEDS: IPRATROPIUM BROMIDE NEB SOLN 0.02% 2.5 ML VIAL INH SCH ×5 (01:20→19:02)
[2022-05-26] MEDS: guaiFENesin 200 MG TAB PO SCH ×4 (04:56→22:20)
[2022-05-26] MEDS: LEVOTHYROXINE SODIUM 125 MCG TABLET PO SCH (05:19)
[2022-05-26] MEDS: methylPREDNISolone 40 MG in SYRINGE 0 ML IV SCH ×3 (05:19→23:16)
[2022-05-26 06:22] LABS: C Reactive Protein 16.54 mg/dl (0-0.5); Calcium 9.6 mg/dl (8.5-10.1); Creatinine Clr Calc Pharmacy 151.4 ml/min; Est GFR (African American) 138.6 ml/min; Est GFR (Non-African American) 119.6 ml/min; Potassium 4.1 mmol/L (3.5-5.1)
[2022-05-26 08:38] LABS: Hemoglobin 14.5 g/dl (12.0-16.0); Mean Corpuscular Hemoglobin 31.3 pg (25.0-34.0); Mean Corpuscular Hgb Conc 33.7 g/dL (32.0-36.0); Mean Corpuscular Volume 92.9 fL (80.0-100.0); Mean Platelet Volume 10.3 fL (9.4-12.3); Platelet Count 323 K/uL (130-400); RDW Coefficient of Variation 13.4 % (11.5-14.5); RDW Standard Deviation 45.5 fL (36.4-46.3); Red Blood Count 4.63 M/uL (3.93-5.22); White Blood Count 21.92 K/ul (4.8-10.8)
[2022-05-26] MEDS: INSULIN ASPART PER UNIT SC SCH ×4 (09:30→22:20)
[2022-05-26] MEDS: MAGNESIUM OXIDE 400 MG TAB PO SCH (09:30)
[2022-05-26] MEDS: DOXYCYCLINE HYCLATE 100 MG CAP PO SCH ×2 (09:34→22:15)
[2022-05-26] MEDS: PANTOprazole 40 MG TAB PO SCH ×2 (09:35→22:19)
[2022-05-26] MEDS: ENOXAPARIN INJ 40 MG/0.4 ML SYR SQ SCH ×2 (09:35→22:16)
[2022-05-26] MEDS: NICOTINE 14 MG/24 HR PATCH TD SCH (09:35)
[2022-05-26] MEDS: CYANOCOBALAMIN (B-12) 500 MCG TABLET PO SCH (09:35)
[2022-05-26] MEDS: lamoTRIgine 100 MG TAB PO SCH ×2 (09:35→22:16)
[2022-05-26] MEDS: MONTELUKAST SODIUM 10 MG TABLET PO SCH (09:35)
[2022-05-26] MEDS: FOLIC ACID 1 MG TAB PO SCH (09:35)
[2022-05-26] MEDS: levETIRAcetam 500 MG TAB PO SCH ×2 (09:35→22:19)
[2022-05-26] MEDS: FAMOTIDINE 20 MG TAB PO SCH ×2 (09:35→22:15)
[2022-05-26] MEDS: FLUTICASONE/VILANTEROL 200/25MCG 14 PUFFS/INHALER INH SCH (09:36)
--- NOTE | 2022-05-26 16:46 | Hospitalist Progress Note ---
Date of Service May 26, 2022 Assessment & Plan (1) Asthma exacerbation: (2) Hypothyroidism: (3) Dyslipidemia: (4) Anxiety: (5) H/O deep venous thrombosis: (6) H/O tonic-clonic seizures: (7) Diabetes type 2, controlled: (8) Overactive bladder: (9) GERD (gastroesophageal reflux disease): Plan 26 y/o with SOB x 24 hours. H/O asthma; used Albuterol neb at home Q2 hours x 24 hours. Received steroids from PCP prior to coming in. Received 1 hour neb in ED. Biofire pending. H/O anxiety, seizures, DVT (s/p surgery 2013 was on anticoags x3 months). Hypoxic on 10L oxymask; D-dimer pending. Asthma exacerbation: Present on admission with worsening shortness of breath dexamethasone 40 mg Q8 CXR in ED some opacities suggestive of atelectasis vs PNA. Tested positive for entero/rhinovirus C-reactive increased to 16.5 One hour neb completed in ED and received an IM dose of steroid Currently on IV solumedrol 40mg IV q8h and IV abx On high flow oxygen, continue titrate oxygen Continue Incentive spirometry and flutter valve and mucinex. If respiratory worsening, will consult pulm Continue monitor closely Anxiety: could be a contributing factor to her worsening SOB Takes Ativan PRN; has not taken any lately H/O DVT: s/p left hip surgery in 2013. Was on anticoagulation oral x3 months D-dimer normal H/O Seizures: Has not had one in approximately 7 years. Follows with Lisset Raya PA-C OPT Continue Keppra 1500mg QAM/QHS Hypothyroidism: Takes Synthroid; continue 01/2022: TSH 1.15 overactive bladder: Follows with Urology; Dr. Caraballo OPT Per review of EMR: has microhematuria associated with obstructive voiding symptoms Had a cystoscopy 04/2022 Takes Flomax; continue Pre-diabetes: Most Hba1c 5 Continue to hold metformin Continue insulin sliding scale Continue monitor BS while on steroid GERD: Takes Esomeprazole and Pepcid; continue Disposition: PCP: Dr. Mendez VTE Prophylaxis: Heparin SQ Code: Full Point of Contact: Amber: [phone] Denys, boyfriend: [phone] Admission and Anticipated Discharge Date Admission Date: May 24, 2022 Subjective Pt was seen and examined for follow up SOB and PNA Lying in bed with with no acute respiratory distress Continue requiring high flow oxygen, but oxygen has been titrated slowly She said that she is feeling a lot better compare to when she came Denies any chest pain, palpitation, dizziness and SOB Review of Systems Review of Systems: All systems reviewed & are unremarkable except as noted in Subjective Physical Exam Physical Exam: General- No acute distress Head- atraumatic Eyes- PERRL, EOMI, ENT- oropharynx clear Neck- supple, no JVD Lungs- +wheezing Heart- regular rhythm; no murmur Abdomen- normal bowel sounds, soft, nontender Extremities- no calf tenderness Neuro- alert, oriented x 3; PERRL, EOMI; no facial palsy; no dysarthria Skin- warm & dry Results & Data Results & Data ([facility]) Vital Signs (Past 12 Hours) Vital Signs Temp Pulse Pulse Resp BP Pulse Ox O2 Del Method 05/26/22 15:31 36.4 C L 96 H 18 105/68 95 High Flow Nasal Cannula 05/26/22 14:40 95 H 24 97 High Flow Nasal Cannula 05/26/22 11:52 36.8 C 91 H 20 101/65 99 High Flow Nasal Cannula 05/26/22 11:29 94 H 22 95 High Flow Nasal Cannula 05/26/22 08:09 37.0 C 99 H 22 100/64 96 High Flow Nasal Cannula 05/26/22 07:37 107 H 05/26/22 07:37 High Flow Nasal Cannula 05/26/22 06:58 106 H 26 H 93 High Flow Nasal Cannula 05/26/22 05:29 99 H 26 H 94 High Flow Nasal Cannula 05/26/22 05:28 99 H 26 H 94 High Flow Nasal Cannula 05/26/22 04:53 37.2 C 101 H 20 106/71 95 High Flow Nasal Cannula O2 Flow Rate FiO2 05/26/22 15:31 30 65 05/26/22 14:40 30 75 05/26/22 11:52 30 80 05/26/22 11:29 30 80 05/26/22 08:09 30 80 05/26/22 07:37 05/26/22 07:37 30 80 05/26/22 06:58 30 80 05/26/22 05:29 30 80 05/26/22 05:28 30 80 05/26/22 04:53 30 80
[2022-05-26] MEDS: NORTRIPTYLINE HCL 25 MG CAP PO SCH (22:18)
[2022-05-26] MEDS: cefTRIAXone SODIUM 2,000 MG in DEXTROSE 5% 50 ML IV SCH (22:19)
[2022-05-26] MEDS: BENZONATATE 100 MG CAPSULE PO PRN (22:30)
[2022-05-27] MEDS: IPRATROPIUM BROMIDE NEB SOLN 0.02% 2.5 ML VIAL INH SCH ×3 (00:13→13:32)
[2022-05-27] MEDS: LEVALBUTEROL 1.25MG/0.5ML NEB INH SCH ×3 (00:13→13:32)
[2022-05-27] MEDS: methylPREDNISolone 40 MG in SYRINGE 0 ML IV SCH ×3 (05:36→22:14)
[2022-05-27] MEDS: guaiFENesin 200 MG TAB PO SCH ×4 (05:36→22:14)
[2022-05-27] MEDS: LEVOTHYROXINE SODIUM 125 MCG TABLET PO SCH (05:36)
[2022-05-27] MEDS: INSULIN ASPART PER UNIT SC SCH ×4 (07:51→21:24)
[2022-05-27] MEDS: lamoTRIgine 100 MG TAB PO SCH ×2 (09:21→20:53)
[2022-05-27] MEDS: MAGNESIUM OXIDE 400 MG TAB PO SCH (09:22)
[2022-05-27] MEDS: FOLIC ACID 1 MG TAB PO SCH (09:22)
[2022-05-27] MEDS: FLUTICASONE/VILANTEROL 200/25MCG 14 PUFFS/INHALER INH SCH (09:22)
[2022-05-27] MEDS: levETIRAcetam 500 MG TAB PO SCH ×2 (09:22→20:52)
[2022-05-27] MEDS: FAMOTIDINE 20 MG TAB PO SCH ×2 (09:22→20:51)
[2022-05-27] MEDS: CYANOCOBALAMIN (B-12) 500 MCG TABLET PO SCH (09:22)
[2022-05-27] MEDS: DOXYCYCLINE HYCLATE 100 MG CAP PO SCH (09:22)
[2022-05-27] MEDS: MONTELUKAST SODIUM 10 MG TABLET PO SCH (09:22)
[2022-05-27] MEDS: PANTOprazole 40 MG TAB PO SCH ×2 (09:23→20:52)
[2022-05-27] MEDS: ENOXAPARIN INJ 40 MG/0.4 ML SYR SQ SCH ×2 (09:23→20:50)
[2022-05-27] MEDS: NICOTINE 14 MG/24 HR PATCH TD SCH (09:23)
--- NOTE | 2022-05-27 10:49 | Pulmonary Consultation ---
Date of Consultation May 27, 2022 Assessment & Plan (1) Asthma: (2) Hypoxemia: (3) Current every day smoker: Plan Attending: Dr. Gomez Impression: 26-year-old female that has history of childhood asthma with no recent PFTs. Treated by PCP with albuterol as needed, Advair discus 500/50, Singulair 10 mg daily. Patient was in her usual health as of Tuesday morning. She then began to develop some shortness of breath and cough which felt like she had a cold. Tuesday she began to have chest tightness and increased shortness of breath and wheezes. Minimal effect with albuterol HFA and nebulizer. She called 911 at 3 PM and was brought to the emergency department and treated for asthma exacerbation with hour-long nebulizer treatment, ceftriaxone, methylprednisolone. Patient is negative for COVID. 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 Patient does have profound hypoxia and was placed on high flow oxygen and is currently on nasal cannula at 8 L. Recommendations: 1. Profound hypoxia: * Unlikely that this is asthma exacerbation based on presentation and symptoms * Patient currently is on methylprednisolone 40 mg IV 3 times daily. We will continue this for now * Will also continue ceftriaxone and and doxycycline and order procalcitonin * Blood cultures have been obtained and are negative for growth to date. We will hold off on sputum culture at this time as I suspect the patient may need bronchoscopy * Continue to titrate supplemental oxygen to maintain SPO2 greater than 90% * Out of bed to chair and ambulate as tolerated * Continue with incentive spirometer 2. Asthma: * History of childhood asthma but no recent pulmonary function tests or metha choline challenge * Patient on Advair discus 500/50 as well as Singulair daily. Albuterol HFA and nebulizer treatments as needed * Patient does not appear to be in asthma asthmaticus * Clinical examination does not suggest asthma flare * Check CT scan of the chest without contrast * Check peak flow * CBC with differential to check for eosinophilia * Check IgE (reference lab so we will review as an outpatient) * Continue systemic steroids for now * Patient will need follow-up in the pulmonary clinic on discharge as well as outpatient pulmonary function testing after she is recovered from this episode 3. Tobacco abuse: * 2-pack-year smoking history. * Smokes 1/2 pack/day x 4 years * Advised patient that she needs to quit * Patient aware. 4. Morbid obesity due to excess calories: * Encourage patient to follow-up with weight loss provider again * BMI 35.4 kg/m * Patient aware that this can impact her breathing and cause increased restriction * Continue to encourage calorie reduction and increased activity Thank you very much for including us in the care of this patient. Please refer to Dr. Gomez's addendum for further recommendations and corrections We will be glad to follow the patient in the outpatient clinic on discharge. She should have pulmonary function testing done as an outpatient with follow-up in the pulmonary office Supervising Physician Co-Signing Physician Notes Patient seen and examined. EMR reviewed. Imaging independently reviewed. Discussed with pulmonary MELLO and agree with assessment plan as noted. Etiology is somewhat unclear but the CT scan demonstrates groundglass opacities in central distribution suggestive of hydrostatic pulmonary edema or potential atypical infection. She also has a small amount of pneumomediastinum which is likely secondary to Cal effect. Inflammatory processes such as smoking- related interstitial lung disease (DIP, RB ILD) may have a similar radiographic appearance but are felt to be less likely and would be adequately treated by steroids and smoking cessation. The atypical infection may be inadequately treated by Rocephin and will transition to a arun quinolone. As she is already being treated with steroids, I think the likelihood of identifying an alternative etiology on bronchoscopy with BAL is quite low. In addition, given the presence of pneumomediastinum, I would be reluctant to proceed with procedures known to increased intrathoracic pressures. Smoking cessation again recommended. Will transition to nebulized budesonide and Perforomist as well as Incruse. Continue steroids but can transition to an oral agent. Wean oxygen as tolerated. We will see how she responds to arun quinolone diuresis and nebulized medications. Check BNP. Empiric trial of diuresis. Follow-up echocardiogram. Outpatient PFTs recommended We will continue to follow with you. Feel free to contact us with questions or concerns History of Present Illness Reason for Consultation: "Asthma exacerbation" Attending Physician: Tammy Stearns DO History of Present Illness Attending: Dr. Gomez Past medical history includes diagnosis of asthma based on childhood symptoms, current cigarette smoker (4-pack-year history), GERD, diabetes mellitus type 2 controlled, tonic-clonic seizures on Lamictal and Keppra (last seizure 2 years ago), dyslipidemia, PTSD, hypothyroidism, obesity with BMI of 35.4 kg/m secondary to excessive calories. There is a 26-year-old female that indicated that she started to have shortness of breath and wheezes on Tuesday. Prior to that she was doing well with no complaints. Tuesday her symptoms seem to worsen and she had some chest tightness. She called 911 at 3 PM was brought to the emergency department and admitted for "asthma exacerbation". She was treated with nebulizer treatments as well as ceftriaxone. Chest x-ray was completed and showed possibility of pneumonia. White count was elevated. COVID was negative. Bio fire was positive for adenocarcinoma and otherwise negative. Patient reports that she has had childhood asthma and that this was a result of RSV when she was 2 months old and required supplemental oxygen by oxygen tent. She reports that intermittently as a child she would have difficulty with wheezes and shortness of breath. She did have pulmonary function test performed at [facility] as an adolescent but does not know the results but feels that they may have been normal. Patient is chronically on Advair 500/500 as well as Singulair 10 mg p.o. daily. She also has an albuterol HFA and nebulizer which she uses infrequently. She denies any pulmonary surgeries or procedures. Patient is a current smoker of 1/2 pack/day for the last 4 years (2-pack-year history). She denies vaping. She denies any other inhalation or huffing. She denies marijuana or other illicit drug use. Patient lives with her boyfriend for the last 6 years. She has a 7-year-old son who lives with them. She reports that she has monogamous and has no history of STD or HIV. Patient reports that she was seen in a weight loss physician and was placed on Ozempic. During this period she had a 10 to 15 pound weight loss that was intentional. Insurance then failed to cover medication and she reports that she gained the weight back. Patient has a history of basal cell cancer of the scalp. No other malignancy that the patient is aware of Patient has never had COVID. She is vaccinated with [employer] x2. She has not received a booster. Patient denies exposure to standing water. Maternal grandmother with history of tobacco abuse and COPD Biological father from unknown type of cancer in his 50s Biological brother alive and well 36 years old. Patient has no other acute complaints. Allergies Allergy/AdvReac Type Severity Reaction Status Date / Time hydromorphone Allergy Severe Respirations Verified 10/08/21 09:32 stopped. peanut Allergy Severe ALL Verified 10/08/21 09:32 NUTS-HIVES, SOB amoxicillin Allergy Intermediate Rash Verified 10/08/21 09:32 morphine Allergy Intermediate Hives Verified 10/08/21 09:32 oxycodone Allergy Intermediate Hives Verified 10/08/21 09:32 adhesive AdvReac Mild Rash Verified 10/08/21 09:32 Home Medications Medication Instructions Recorded Confirmed Type albuterol sulfate 90 mcg/actuation 2 puff inhalation Q6H PRN 08/19/18 05/24/22 History aerosol inhaler (Ventolin HFA) Shortness Of Breath Or Wheezing folic acid 1 mg tablet 3 mg PO QAM 08/19/18 05/24/22 History lamotrigine 200 mg tablet 200 mg PO BID 08/19/18 05/24/22 History (Lamictal) levetiracetam 1,000 mg tablet 1,000 mg PO BID 08/19/18 05/24/22 History (Keppra) levetiracetam 500 mg tablet 500 mg PO BID 08/19/18 05/24/22 History (Keppra) nortriptyline 25 mg capsule 25 mg PO HS 08/19/18 05/24/22 History cyanocobalamin (vitamin B-12) 1,000 mcg PO QAM 08/02/19 05/24/22 History 1,000 mcg tablet (Vitamin B-12) magnesium oxide 400 mg (241.3 mg 400 mg PO QAM 08/02/19 05/24/22 History magnesium) tablet albuterol sulfate 2.5 mg/3 mL 2.5 mg inhalation Q4H PRN Wheezing 07/29/20 05/24/22 History (0.083 %) solution for nebulization famotidine 20 mg tablet 20 mg PO BID 07/29/20 05/24/22 History lamotrigine 100 mg tablet 50 mg PO BID 07/29/20 05/24/22 History levothyroxine 125 mcg tablet 125 mcg PO QAM 07/29/20 05/24/22 History (Synthroid) montelukast 10 mg tablet 10 mg PO QAM 07/29/20 05/24/22 History omeprazole 20 mg capsule,delayed 20 mg PO BID 07/29/20 05/24/22 History release fluticasone 250 mcg-salmeterol 50 1 ea inhalation BID 11/01/20 05/24/22 History mcg/dose blistr powdr for inhalation (Advair Diskus) esomeprazole magnesium 20 mg 20 mg PO BID 06/28/21 05/24/22 History capsule,delayed release Patient History Medical History (Updated 05/27/22 @ 13:14 by Ata Azevedo PA-C) Acanthosis nigricans, acquired Anxiety Anxiety Asthma Asthma exacerbation Current every day smoker Depression Diabetes type 2, controlled Dyslipidemia GERD (gastroesophageal reflux disease) H/O deep venous thrombosis H/O tonic-clonic seizures Heart palpitations Hypothyroidism Inappropriate sinus tachycardia F/U DR [facility]. On Corlanor, which has significantly improved symptoms. Kidney stone HX OAB (overactive bladder) Obesity Ovarian cyst Overactive bladder PTSD (post-traumatic stress disorder) Seizures LAST SEIZURE ~ 08/2019. F/U DR VILLANUEVA [facility]. Most recent OV 03/2020, stable, deemed OK for endoscopy. Surgical History H/O colonoscopy H/O esophagogastroduodenoscopy H/O foot surgery History of cystoscopy TO REMOVE KIDNEY STONES History of myringotomy Nausea and vomiting after administration of anesthetic agent X 1 S/P laparoscopic cholecystectomy S/P removal of ovarian cyst Status post Mohs surgery Family History Mother Family history of diabetes mellitus Grandmother (Maternal) Family history of diabetes mellitus Social History Smoking Status: Current every day smoker Tobacco Type: Cigarettes Cigarettes Per Day: 1/2 ppd; Second Hand Exposure: No; Do You Dip or Chew Tobacco: No; Hx Alcohol Use: No Hx Substance Use: No Preferred Language: [place] Communication Ability: Effective Director Of Bands Required: No Beliefs That Will Affect Care: None Current Living Situation: Family Current Living Situation Comment: Pt lives at home with her fatherMario Other Information That Helps Us Care for You: No Feels Safe at Home: Yes Safety Concerns: Feels Safe At This Time Assistive Devices: None Review of Systems Review of Systems: A total of 10 systems was reviewed and is negative other than as listed in the HPI Physical Exam Physical Exam: GENERAL : No acute distress EYES: No icterus, gaze conjugate NOSE: No evidence of epistaxis MOUTH: No lesions or candidiasis. Mucosa moist NECK: Supple. No stridor. LUNGS: Scant scattered wheezes, some rales at the bilateral bases. No rhonchi HEART: Regular, rate controlled ABDOMEN: Soft, NT, ND, BS Present EXTREMITIES: No LE edema, pedal pulses intact and equal bilaterally NEURO: A&OX3 Results & Data Results & Data ([facility]) Vital Signs (Past 12 Hours) Vital Signs Temp Pulse Pulse Resp BP BP Pulse Ox 05/27/22 08:07 36.6 C 96 H 18 106/71 92 05/27/22 07:54 95 H 05/27/22 07:54 05/27/22 07:13 105 H 20 92 05/27/22 04:58 36.6 C 89 20 119/78 91 05/27/22 04:10 100 H 05/27/22 03:08 102 H 20 92 05/26/22 23:33 36.8 C 108 H 18 105/71 92 05/27/22 00:14 111 H 24 93 05/26/22 23:33 103 H 24 96 O2 Del Method O2 Flow Rate FiO2 05/27/22 08:07 High Flow Nasal Cannula 8 05/27/22 07:54 05/27/22 07:54 Nasal Cannula 8 05/27/22 07:13 Nasal Cannula 8 05/27/22 04:58 Nasal Cannula 8.0 05/27/22 04:10 05/27/22 03:08 Nasal Cannula 8 05/26/22 23:33 High Flow Nasal Cannula 25 45 05/27/22 00:14 High Flow Nasal Cannula 25 45 05/26/22 23:33 High Flow Nasal Cannula 25 45 Critical Care Results & Data Vital Signs (Past 12 Hours) Vital Signs Temp Pulse Pulse Resp BP BP Pulse Ox 05/27/22 11:50 36.8 C 96 H 18 112/73 94 05/27/22 08:07 36.6 C 96 H 18 106/71 92 05/27/22 07:54 95 H 05/27/22 07:54 05/27/22 07:13 105 H 20 92 05/27/22 04:58 36.6 C 89 20 119/78 91 05/27/22 04:10 100 H 05/27/22 03:08 102 H 20 92 O2 Del Method O2 Flow Rate 05/27/22 11:50 High Flow Nasal Cannula 8 05/27/22 08:07 High Flow Nasal Cannula 8 05/27/22 07:54 05/27/22 07:54 Nasal Cannula 8 05/27/22 07:13 Nasal Cannula 8 05/27/22 04:58 Nasal Cannula 8.0 05/27/22 04:10 05/27/22 03:08 Nasal Cannula 8 Lab & Micro Results (Past 24 Hours) RBC 4.43 M/uL (3.93-5.22) 05/27/22 WBC 12.97 K/ul (4.8-10.8) H 05/27/22 Hgb 13.8 g/dl (12.0-16.0) 05/27/22 Hct 40.1 % (34.1-44.9) 05/27/22 MCV 90.5 fL (80.0-100.0) 05/27/22 MCH 31.2 pg (25.0-34.0) 05/27/22 MCHC 34.4 g/dL (32.0-36.0) 05/27/22 RDW Standard Deviation 43.5 fL (36.4-46.3) 05/27/22 RDW Coefficient of Variation 13.2 % (11.5-14.5) 05/27/22 Plt Count 309 K/uL (130-400) 05/27/22 MPV 9.5 fL (9.4-12.3) 05/27/22 Neutrophils (%) (Auto) 87.2 % 05/27/22 Lymphocytes (%) (Auto) 8.6 % 05/27/22 Monocytes # (Auto) 0.44 K/uL (0.24-0.82) 05/27/22 Eosinophils # (Auto) 0.00 K/uL (0-0.50) 05/27/22 Immature Granulocyte % (Auto) 0.7 % 05/27/22 Neutrophils # (Auto) 11.31 K/uL (1.4-6.5) H 05/27/22 Lymphocytes # (Auto) 1.12 K/uL (1.2-3.4) L 05/27/22 Monocytes # (Auto) 0.44 K/uL (0.24-0.82) 05/27/22 Eosinophils # (Auto) 0.00 K/uL (0-0.50) 05/27/22 Basophils # (Auto) 0.01 K/uL (0-0.2) 05/27/22 Immature Granulocyte # (Auto) 0.09 K/uL (0.00-0.02) H 05/27 No Data to Display Mg 1.8 mg/dl (1.7-2.4) 05/27/22 11:04 Microbiology 05/24/22 19:46 Aerobic Blood Culture - Preliminary Blood No growth in Aerobic bottle after 48 hours. Anaerobic Blood Culture - Preliminary No growth in Anaerobic bottle after 48 hours. 05/24/22 19:46 Aerobic Blood Culture - Preliminary Blood No growth in Aerobic bottle after 48 hours. Anaerobic Blood Culture - Preliminary No growth in Anaerobic bottle after 48 hours. Diagnostic Findings (Past 24 Hours) Chest CT 05/27/22 10:29 CT chest diagnostic wo con CT DOSE: 584.64 mGycm CLINICAL HISTORY: 26 years-old Female with Profound hypoxia. Acute hypoxia TECHNIQUE: Multiaxial CT images of the chest were performed without contrast. A dose lowering technique was utilized adhering to the principles of ALARA. COMPARISON: Chest radiograph 05/25/2022, CTA chest 09/24/2017 FINDINGS: Unremarkable thyroid. The heart is normal in size without pericardial effusion. No thoracic aortic aneurysm. Small amount of pneumomediastinum. Subcentimeter axillary and mediastinal lymph nodes measure up to 9 mm. No pathologically enlarged lymph nodes are identified by CT size criteria. Trace left pleural effusion. No pneumothorax. Multifocal and multilobar distribution of bilateral groundglass densities with mild infraspinatus intermixed airspace opacities. No suspicious pulmonary nodules or masses. No acute process of the imaged upper abdomen. Hepatomegaly with hepatic steatosis. Unremarkable soft tissues. There is no acute fracture identified. IMPRESSION: 1. Bilateral groundglass predominant opacities are noted within a multilobar distribution suggestive of pneumonia. 2. Borderline enlarged mediastinal and hilar lymph nodes are likely reactive. 3. Small amount of pneumomediastinum. No pneumothorax. 4. Hepatosplenomegaly with hepatic steatosis. ACT 112: Negative or not required by law. Electronically signed by: Shravan Nj M.D. 05/27/2022 12:59 PM I & O Totals 24 Hours 05/26/22 05/27/22 05/28/22 06:59 06:59 06:59 Intake Total 3368.333 / 3368.333 70 / 70 Output Total Balance 3367.333 / 3367.333 70 / 70 Cumulative 05/24/22 14:38 thru 05/27/22 05:02 Intake Total 8488.333 Output Total 1401 Balance 7087.333 RT Ventilator Mngmt (Last Documented) Ventilator Ordered Settings Respiratory Rate 18 05/27/22 11:50 Fraction of Inspired Oxygen 45 05/27/22 00:14 Ventilator - PT Measurements Respiratory Rate 18 PG Care Time/CCT Total # of Minutes Spent Total Time Spent with Patient: Total time spent is greater than 50% in coordination of care (as documented) at patient's floor/unit and/or counseling patient: 60 minutes Coding Level of Care Code 39817 Inpt Consult Level 5 Diagnoses Asthma J45.909 Hypoxemia R09.02 Current every day smoker F17.200 Time Spent (min) 60
[2022-05-27 11:22] LABS: Basophils # (auto) 0.01 K/uL (0-0.2); Basophils % (auto) 0.1 %; Hematocrit (blood only) 40.1 % (34.1-44.9); Hemoglobin 13.8 g/dl (12.0-16.0); Immature Granulocytes # (auto) 0.09 K/uL (0.00-0.02); Immature Granulocytes % (auto) 0.7 %; Lymphocytes # (auto) 1.12 K/uL (1.2-3.4); Lymphocytes % (auto) 8.6 %; Mean Corpuscular Hemoglobin 31.2 pg (25.0-34.0); Mean Corpuscular Hgb Conc 34.4 g/dL (32.0-36.0); Mean Corpuscular Volume 90.5 fL (80.0-100.0); Mean Platelet Volume 9.5 fL (9.4-12.3); Monocytes # (auto) 0.44 K/uL (0.24-0.82); Monocytes % (auto) 3.4 %; Neutrophils # (auto) 11.31 K/uL (1.4-6.5); Neutrophils % (auto) 87.2 %; Platelet Count 309 K/uL (130-400); RDW Coefficient of Variation 13.2 % (11.5-14.5); RDW Standard Deviation 43.5 fL (36.4-46.3); Red Blood Count 4.43 M/uL (3.93-5.22); White Blood Count 12.97 K/ul (4.8-10.8)
--- NOTE | 2022-05-27 13:00 | CT Scan Report ---
CT chest diagnostic wo con CT DOSE: 584.64 mGycm CLINICAL HISTORY: 26 years-old Female with Profound hypoxia. Acute hypoxia TECHNIQUE: Multiaxial CT images of the chest were performed without contrast. A dose lowering techni que was utilized adhering to the principles of ALARA. COMPARISON: Chest radiograph 05/25/2022, CTA chest 09/24/2017 FINDINGS: Unremarkable thyroid. The heart is normal in size without pericardial effusion. No thoracic aortic an eurysm. Small amount of pneumomediastinum. Subcentimeter axillary and mediastinal lymph nodes measure up to 9 mm. No pathologically enlarged lymph nodes are identified by CT size criteria. Trace left pleural effusion. No pneumothorax. Multifocal and multilobar distribution of bilateral jacquelin undglass densities with mild infraspinatus intermixed airspace opacities. No suspicious pulmonary nod ules or masses. No acute process of the imaged upper abdomen. Hepatomegaly with hepatic steatosis. Un remarkable soft tissues. There is no acute fracture identified. IMPRESSION: 1. Bilateral groundglass predominant opacities are noted within a multilobar distribution suggestive of pneumonia. 2. Borderline enlarged mediastinal and hilar lymph nodes are likely reactive. 3. Small amount of pneumomediastinum. No pneumothorax. 4. Hepatosplenomegaly with hepatic steatosis. ACT 112: Negative or not required by law. Electronically signed by: Shravan Nj M.D. 05/27/2022 12:59 PM
--- NOTE | 2022-05-27 13:40 | Hospitalist Progress Note ---
Date of Service May 27, 2022 Assessment & Plan (1) Pneumonia: Plan: Confirmed multilobar pneumonia on CT today. Biofire positive for enterovirus/rhinovirus which is possible etiology. Procalcitonin also negative. Cont with antibiotics for now with significant hypoxia. (2) Asthma exacerbation: Plan: per pulm, uncertain history of asthma. Patient is on ICS/LABA as outpatient as well as Singulair. She is actively wheezing throughout all lung spencer today. Cont with IV steroids and nebulizer therapies for now. Continues to require supplemental oxygen which is improved. (3) Current every day smoker: Plan: Smoking cessation strongly advised. (4) Hypothyroidism: Plan: chronic, stable. Would hold off on ordering updated TFTs in acute illness. Cont home Synthroid. (5) H/O tonic-clonic seizures: Plan: chronic, stable on lamotrigine and levitiracetam. (6) Metabolic syndrome: Plan: On metformin as outpatient. Metformin held and insulin with carb overage and correction factor given in setting of steroids. Cautiously watch for hypoglycemia. (7) Morbid obesity: Plan: Lifestyle modifications recommended (8) GERD (gastroesophageal reflux disease): Plan: cont PPI per home regimen. (9) DVT prophylaxis: Plan: Lovenox BID Full code Diapo-to home when off oxygen [facility] Admission and Anticipated Discharge Date Admission Date: May 24, 2022 Subjective 26 yo patient with reported asthma. She has had dry cough since Tuesday when her symptoms began but is now coming up with more productive greenish sputum Afebrile and tolerating PO Otherwise doing well She reports daily Advair use at home and singulair and denies any nighttime awakenings Denies any use of nebulizer at home until Tuesday Denies significant asthma symptoms overall She is on disability and doesn't work reporting chronic back pain (not on opiates) She has a h/o seizures that are well controlled on AEDs. Review of Systems Review of Systems: All systems were reviewed and negative except as indicated above. Physical Exam Physical Exam: CONSTITUTIONAL: WNWD, vitals as above, generally well- appearing EYES: normal conjunctivae, no scleral icterus ENT: external ear and nose normal, MMM NECK: trachea midline RESPIRATORY: wheezing throughout all lung spencer, normal respiratory effort, +supplemental oxygen CARDIOVASCULAR: regular rate and rhythm, S1 and 2 heard without murmurs, gallops or rubs, no JVD, no peripheral edema CHEST: inspection of chest was normal GASTROINTESTINAL: ]soft, nontender, ND, no guarding MUSCULOSKELETAL: strength 5/5 throughout, head is normocephalic and atraumatic SKIN: warm and dry NEUROLOGIC: CN 2-12 grossly intact, no sensory deficit, normal cognition, normal speech, no tremor PSYCHIATRIC: alert cooperative and oriented to person, place and time. Euthymic mood, makes good eye contact, language grossly intact, recent and remote memory grossly intact. Results & Data Results & Data ([facility]) Vital Signs (Past 12 Hours) Vital Signs Temp Pulse Pulse Resp BP BP Pulse Ox 05/27/22 13:33 94 H 22 95 05/27/22 11:50 36.8 C 96 H 18 112/73 94 05/27/22 08:07 36.6 C 96 H 18 106/71 92 05/27/22 07:54 95 H 05/27/22 07:54 05/27/22 07:13 105 H 20 92 05/27/22 04:58 36.6 C 89 20 119/78 91 05/27/22 04:10 100 H 05/27/22 03:08 102 H 20 92 O2 Del Method O2 Flow Rate 05/27/22 13:33 Nasal Cannula 8 05/27/22 11:50 High Flow Nasal Cannula 8 05/27/22 08:07 High Flow Nasal Cannula 8 05/27/22 07:54 05/27/22 07:54 Nasal Cannula 8 05/27/22 07:13 Nasal Cannula 8 05/27/22 04:58 Nasal Cannula 8.0 05/27/22 04:10 05/27/22 03:08 Nasal Cannula 8 Laboratory Results Short CBC 05/27/22 Range/Units 11:04 WBC 12.97 H (4.8-10.8) K/ul Hgb 13.8 (12.0-16.0) g/dl Hct 40.1 (34.1-44.9) % Plt Count 309 (130-400) K/uL Diagnostic Findings Chest CT 05/27/22 10:29 CT chest diagnostic wo con CT DOSE: 584.64 mGycm CLINICAL HISTORY: 26 years-old Female with Profound hypoxia. Acute hypoxia TECHNIQUE: Multiaxial CT images of the chest were performed without contrast. A dose lowering technique was utilized adhering to the principles of ALARA. COMPARISON: Chest radiograph 05/25/2022, CTA chest 09/24/2017 FINDINGS: Unremarkable thyroid. The heart is normal in size without pericardial effusion. No thoracic aortic aneurysm. Small amount of pneumomediastinum. Subcentimeter axillary and mediastinal lymph nodes measure up to 9 mm. No pathologically enlarged lymph nodes are identified by CT size criteria. Trace left pleural effusion. No pneumothorax. Multifocal and multilobar distribution of bilateral groundglass densities with mild infraspinatus intermixed airspace opacities. No suspicious pulmonary nodules or masses. No acute process of the imaged upper abdomen. Hepatomegaly with hepatic steatosis. Unremarkable soft tissues. There is no acute fracture identified. IMPRESSION: 1. Bilateral groundglass predominant opacities are noted within a multilobar distribution suggestive of pneumonia. 2. Borderline enlarged mediastinal and hilar lymph nodes are likely reactive. 3. Small amount of pneumomediastinum. No pneumothorax. 4. Hepatosplenomegaly with hepatic steatosis. ACT 112: Negative or not required by law. Electronically signed by: Shravan Nj M.D. 05/27/2022 12:59 PM Medications Administered Current Inpatient Medications Acetaminophen (Acetaminophen 325 Mg Tab) 650 mg PO Q4H PRN PRN Reason: Pain or Fever Stop: 06/23/22 21:09 Last Admin: 05/25/22 19:46 Dose: 650 mg Al Hydrox/Mg Hydrox/Simethicone (Aluminum/Magnesium Susp 30 Ml Udc) 15 ml PO Q4H PRN PRN Reason: Dyspepsia Stop: 06/23/22 21:09 Benzonatate (Benzonatate 100 Mg Capsule) 100 mg PO TID PRN PRN Reason: Cough Stop: 06/25/22 22:05 Last Admin: 05/26/22 22:30 Dose: 100 mg Cyanocobalamin (Cyanocobalamin (B-12) 500 Mcg Tablet) 1,000 mcg PO QAM [facility]ENDY Stop: 06/24/22 08:59 Last Admin: 05/27/22 09:22 Dose: 1,000 mcg Dextrose (Dextrose 50% 50 Ml Syringe) 25 - 50 ml IV UD PRN; Protocol PRN Reason: Hypoglycemia Protocol Stop: 06/23/22 21:09 Doxycycline Hyclate (Doxycycline Hyclate 100 Mg Cap) 100 mg PO BID [facility] Stop: 06/01/22 08:59 Last Admin: 05/27/22 09:22 Dose: 100 mg Enoxaparin Sodium (Enoxaparin Inj 40 Mg/0.4 Ml Syr) 40 mg SQ BID [facility] Stop: 06/24/22 20:59 Last Admin: 05/27/22 09:23 Dose: 40 mg Famotidine (Famotidine 20 Mg Tab) 20 mg PO BID [facility] Stop: 06/23/22 21:29 Last Admin: 05/27/22 09:22 Dose: 20 mg Fluticasone/Vilanterol (Fluticasone/Vilanterol 200/25mcg 14 Puffs/Inhaler) 1 puffs INH DAILY [facility]END[facility] Stop: 06/24/22 08:59 Last Admin: 05/27/22 09:22 Dose: 1 puffs Folic Acid (Folic Acid 1 Mg Tab) 3 mg PO QAM MEND[facility] Stop: 06/24/22 08:59 Last Admin: 05/27/22 09:22 Dose: 3 mg Glucagon (Glucagon For Inj 1 Mg Vial) 1 mg SQ UD PRN; Protocol PRN Reason: Hypoglycemia Protocol Stop: 06/23/22 21:09 Glucose (Glucose 40% Gel 15 Gm Tube) 15 - 30 gm PO UD PRN; Protocol PRN Reason: Hypoglycemia Protocol Stop: 06/23/22 21:09 Glucose (Glucose 10 Tab/Tube) 4 - 8 tab PO UD PRN; Protocol PRN Reason: Hypoglycemia Treatment Stop: 06/23/22 21:09 Guaifenesin (Guaifenesin 200 Mg Tab) 200 mg PO Q6H [facility] Stop: 06/24/22 16:44 Last Admin: 05/27/22 11:15 Dose: 200 mg Methylprednisolone 40 mg/ (Syringe) 0.64 mls @ 1.5 mls/min IV Q8H [facility] Stop: 06/23/22 21:59 Last Admin: 05/27/22 05:36 Dose: 1.5 mls/min Ceftriaxone Sodium 2,000 mg/ (Dextrose) 70 mls @ 100 mls/hr IV Q24H MENDY; Protocol Stop: 06/01/22 21:59 Last Infusion: 05/26/22 23:18 Dose: Infused Lorazepam 0.5 mg/ Syringe 0.5 mls @ 2 mls/min IV Q6H PRN PRN Reason: Anxiety Stop: 06/24/22 22:51 Last Admin: 05/25/22 23:06 Dose: 2 mls/min Insulin Aspart (Insulin Aspart Per Unit) 0 units SC ACHS [facility] Stop: 06/23/22 21:29 Last Admin: 05/27/22 12:32 Dose: 7 units Ipratropium Kellogg (Ipratropium Kellogg Neb Soln 0.02% 2.5 Ml Vial) 0.5 mg INH Q6R [facility] Stop: 06/24/22 00:59 Last Admin: 05/27/22 13:32 Dose: 0.5 mg Lamotrigine (Lamotrigine 100 Mg Tab) 250 mg PO BID [facility] Stop: 06/23/22 21:29 Last Admin: 05/27/22 09:21 Dose: 250 mg Levalbuterol HCl (Levalbuterol 1.25mg/0.5ml Neb) 1.25 mg INH Q6R [facility] Stop: 06/24/22 00:59 Last Admin: 05/27/22 13:32 Dose: 1.25 mg Levetiracetam (Levetiracetam 500 Mg Tab) 1,500 mg PO BID [facility] Stop: 06/23/22 21:29 Last Admin: 05/27/22 09:22 Dose: 1,500 mg Levothyroxine Sodium (Levothyroxine Sodium 125 Mcg Tablet) 125 mcg PO DAILYBB [facility] Stop: 06/24/22 08:59 Last Admin: 05/27/22 05:36 Dose: 125 mcg Magnesium Hydroxide (Magnesium Hydroxide Susp 30 Ml Udc) 30 ml PO Q12H PRN PRN Reason: Constipation Stop: 06/23/22 21:09 Magnesium Oxide (Magnesium Oxide 400 Mg Tab) 400 mg PO QAM [facility] Stop: 06/24/22 08:59 Last Admin: 05/27/22 09:22 Dose: 400 mg Melatonin (Melatonin 3 Mg Tab) 3 mg PO HS PRN PRN Reason: Sleep Stop: 06/23/22 21:52 Last Admin: 05/25/22 19:47 Dose: 3 mg Miscellaneous (Carbohydrates For Hypoglycemia ) 15 - 30 gm PO UD PRN PRN Reason: Hypoglycemia Protocol Stop: 06/23/22 21:09 Miscellaneous (Remove Nicoderm Patch) 1 each N/A DAILY@0859 [facility] Stop: 06/24/22 08:58 Last Admin: 05/27/22 09:23 Dose: 1 each Montelukast Sodium (Montelukast Sodium 10 Mg Tablet) 10 mg PO QAM [facility] Stop: 06/24/22 08:59 Last Admin: 05/27/22 09:22 Dose: 10 mg Nicotine (Nicotine 14 Mg/24 Hr Patch) 14 mg TD [facility]W [facility] Stop: 06/24/22 08:59 Last Admin: 05/27/22 09:23 Dose: 14 mg Nortriptyline HCl (Nortriptyline Hcl 25 Mg Cap) 25 mg PO HS [facility] Stop: 06/23/22 21:09 Last Admin: 05/26/22 22:18 Dose: 25 mg Ondansetron HCl (Ondansetron Inj 2 Mg/Ml 2 Ml Vial) 4 mg IV Q6H PRN PRN Reason: Nausea Stop: 06/23/22 21:09 Pantoprazole Sodium (Pantoprazole 40 Mg Tab) 40 mg PO BID [facility] Stop: 06/24/22 21:29 Last Admin: 05/27/22 09:23 Dose: 40 mg
[2022-05-27] MEDS: FUROSEMIDE INJ 20 MG/2 ML VIAL IV SCH (17:38)
[2022-05-27] MEDS: UMECLIDINIUM BROMIDE 62.5MCG/BLISTER 7 PUFFS/INHALER INH SCH (17:38)
[2022-05-27] MEDS ORDERED: levoFLOXacin 750 MG TAB PO SCH (17:45)
[2022-05-27] MEDS: FORMOTEROL 20 MCG/2 ML VIAL NEB SCH (20:10)
[2022-05-27] MEDS: BUDESONIDE 0.5 MG/2 ML VIAL (PULMICORT) NEB SCH (20:10)
[2022-05-27] MEDS: NORTRIPTYLINE HCL 25 MG CAP PO SCH (20:52)
[2022-05-27] MEDS: ACETAMINOPHEN 325 MG TAB PO PRN (20:57)
[2022-05-27] MEDS: BENZONATATE 100 MG CAPSULE PO PRN (20:57)
--- NOTE | 2022-05-27 21:50 | XCELERA ---
[id number]
[2022-05-28] MEDS: methylPREDNISolone 40 MG in SYRINGE 0 ML IV SCH (05:42)
[2022-05-28] MEDS: guaiFENesin 200 MG TAB PO SCH ×4 (05:42→22:02)
[2022-05-28] MEDS: LEVOTHYROXINE SODIUM 125 MCG TABLET PO SCH (05:42)
[2022-05-28 06:11] LABS: Basophils # (auto) 0.02 K/uL (0-0.2); Basophils % (auto) 0.2 %; Hematocrit (blood only) 39.7 % (34.1-44.9); Hemoglobin 13.7 g/dl (12.0-16.0); Immature Granulocytes % (auto) 0.8 %; Lymphocytes % (auto) 16.2 %; Mean Corpuscular Hemoglobin 31.4 pg (25.0-34.0); Mean Corpuscular Hgb Conc 34.5 g/dL (32.0-36.0); Mean Corpuscular Volume 91.1 fL (80.0-100.0); Mean Platelet Volume 9.7 fL (9.4-12.3); Monocytes # (auto) 0.73 K/uL (0.24-0.82); Monocytes % (auto) 5.9 %; Neutrophils # (auto) 9.47 K/uL (1.4-6.5); Neutrophils % (auto) 76.9 %; Platelet Count 338 K/uL (130-400); RDW Coefficient of Variation 12.9 % (11.5-14.5); RDW Standard Deviation 42.6 fL (36.4-46.3); Red Blood Count 4.36 M/uL (3.93-5.22); White Blood Count 12.32 K/ul (4.8-10.8)
[2022-05-28 06:46] LABS: BUN Creatinine Ratio 31.1 (10-20); Calcium 9.5 mg/dl (8.5-10.1); Est GFR (Non-African American) 125.1 ml/min; Potassium 4.4 mmol/L (3.5-5.1)
[2022-05-28] MEDS: FORMOTEROL 20 MCG/2 ML VIAL NEB SCH ×2 (07:20→19:30)
[2022-05-28] MEDS: BUDESONIDE 0.5 MG/2 ML VIAL (PULMICORT) NEB SCH ×2 (07:20→19:30)
--- NOTE | 2022-05-28 08:48 | Hospitalist Progress Note ---
Date of Service May 28, 2022 Assessment & Plan (1) Pneumonia: Plan: Confirmed multilobar pneumonia on CT today. Biofire positive for enterovirus/rhinovirus which is possible etiology. Procalcitonin also negative. Cont with antibiotics for now with significant hypoxia. Tolerating switch to Levaquin monotherapy as of last night. Symptoms continue to improve. Cont current regimen. (2) Asthma exacerbation: Plan: per pulm, uncertain history of asthma. Patient is on ICS/LABA as outpatient as well as Singulair. Wheezing is improved since yesterday. Cont with IV steroids and nebulizer therapies for now. Continues to require supplemental oxygen which is improved. (3) Current every day smoker: Plan: Smoking cessation strongly advised. (4) Hypothyroidism: Plan: chronic, stable. Would hold off on ordering updated TFTs in acute illness. Cont home Synthroid. (5) H/O tonic-clonic seizures: Plan: chronic, stable on lamotrigine and levitiracetam. (6) Metabolic syndrome: Plan: On metformin as outpatient. Metformin held and insulin with carb overage and correction factor given in setting of steroids. Cautiously watch for hypoglycemia. (7) Morbid obesity: Plan: Lifestyle modifications recommended (8) GERD (gastroesophageal reflux disease): Plan: cont PPI per home regimen. (9) DVT prophylaxis: Plan: Lovenox BID Full code Diapo-to home when off oxygen DO Eric De Los Santos Hospitalist Admission and Anticipated Discharge Date Admission Date: May 24, 2022 Subjective 26 yo patient admitted for hypoxia and SOB in setting of pneumonia and asthma exacerbation. cough has improved overnight "with those cough pills they are giving me" Afebrile and tolerating PO reports her breathing is improved and feels she is wheezing less. Review of Systems Review of Systems: All systems were reviewed and negative except as indicated above. Physical Exam Physical Exam: CONSTITUTIONAL: obese, vitals as above, generally well- appearing, NAD EYES: normal conjunctivae, no scleral icterus ENT: external ear and nose normal, MMM NECK: trachea midline RESPIRATORY: wheezing throughout all lung spencer has improved since yesterday and now just scant wheezes heard throughout, no crackles or rales, normal respiratory effort, +supplemental oxygen CARDIOVASCULAR: regular rate and rhythm, S1 and 2 heard without murmurs, gallops or rubs, no JVD, no peripheral edema CHEST: inspection of chest was normal GASTROINTESTINAL: soft, nontender, ND, no guarding MUSCULOSKELETAL: strength 5/5 throughout, head is normocephalic and atraumatic SKIN: warm and dry NEUROLOGIC: CN 2-12 grossly intact, no sensory deficit, normal cognition, normal speech, no tremor PSYCHIATRIC: alert cooperative and oriented to person, place and time. Euthymic mood, makes good eye contact, language grossly intact, recent and remote memory grossly intact. Results & Data Results & Data ([facility]) Vital Signs (Past 12 Hours) Vital Signs Temp Pulse Pulse Resp BP Pulse Ox Pulse Ox 05/28/22 07:36 36.4 C L 73 16 121/79 92 05/28/22 07:21 104 H 20 95 05/28/22 02:57 36.6 C 84 20 116/78 91 05/27/22 23:21 36.4 C L 90 20 113/76 92 05/27/22 23:00 96 H 05/27/22 21:00 94 O2 Del Method O2 Del Method O2 Flow Rate O2 Flow Rate 05/28/22 07:36 Room Air 05/28/22 07:21 Nasal Cannula 5 05/28/22 02:57 Nasal Cannula 5.0 05/27/22 23:21 Nasal Cannula 5.0 05/27/22 23:00 05/27/22 21:00 Nasal Cannula 5 Laboratory Results Short CBC 05/27/22 05/28/22 Range/Units 11:04 05:38 WBC 12.97 H 12.32 H (4.8-10.8) K/ul Hgb 13.8 13.7 (12.0-16.0) g/dl Hct 40.1 39.7 (34.1-44.9) % Plt Count 309 338 (130-400) K/uL BMP 05/28/22 05:38 Sodium 137 Potassium 4.4 Chloride 101 Carbon Dioxide 28 BUN 19 Creatinine 0.61 Glucose 117 H Calcium 9.5 Medications Administered Current Inpatient Medications Acetaminophen (Acetaminophen 325 Mg Tab) 650 mg PO Q4H PRN PRN Reason: Pain or Fever Stop: 06/23/22 21:09 Last Admin: 05/27/22 20:57 Dose: 650 mg Al Hydrox/Mg Hydrox/Simethicone (Aluminum/Magnesium Susp 30 Ml Udc) 15 ml PO Q4H PRN PRN Reason: Dyspepsia Stop: 06/23/22 21:09 Benzonatate (Benzonatate 100 Mg Capsule) 100 mg PO TID PRN PRN Reason: Cough Stop: 06/25/22 22:05 Last Admin: 05/27/22 20:57 Dose: 100 mg Budesonide (Budesonide 0.5 Mg/2 Ml Vial (Pulmicort)) 0.5 mg NEB BIDR [facility] Stop: 06/26/22 18:59 Last Admin: 05/28/22 07:20 Dose: 0.5 mg Cyanocobalamin (Cyanocobalamin (B-12) 500 Mcg Tablet) 1,000 mcg PO QAM [facility] Stop: 06/24/22 08:59 Last Admin: 05/27/22 09:22 Dose: 1,000 mcg Dextrose (Dextrose 50% 50 Ml Syringe) 25 - 50 ml IV UD PRN; Protocol PRN Reason: Hypoglycemia Protocol Stop: 06/23/22 21:09 Enoxaparin Sodium (Enoxaparin Inj 40 Mg/0.4 Ml Syr) 40 mg SQ BID [facility] Stop: 06/24/22 20:59 Last Admin: 05/27/22 20:50 Dose: 40 mg Famotidine (Famotidine 20 Mg Tab) 20 mg PO BID [facility] Stop: 06/23/22 21:29 Last Admin: 05/27/22 20:51 Dose: 20 mg Folic Acid (Folic Acid 1 Mg Tab) 3 mg PO QAM [facility] Stop: 06/24/22 08:59 Last Admin: 05/27/22 09:22 Dose: 3 mg Formoterol Fumarate (Formoterol 20 Mcg/2 Ml Vial) 20 mcg NEB BID [facility] Stop: 06/26/22 20:59 Last Admin: 05/28/22 07:20 Dose: 20 mcg Furosemide (Furosemide Inj 20 Mg/2 Ml Vial) 20 mg IV DAILY [facility] Stop: 06/26/22 15:14 Last Admin: 05/27/22 17:38 Dose: 20 mg Glucagon (Glucagon For Inj 1 Mg Vial) 1 mg SQ UD PRN; Protocol PRN Reason: Hypoglycemia Protocol Stop: 06/23/22 21:09 Glucose (Glucose 40% Gel 15 Gm Tube) 15 - 30 gm PO UD PRN; Protocol PRN Reason: Hypoglycemia Protocol Stop: 06/23/22 21:09 Glucose (Glucose 10 Tab/Tube) 4 - 8 tab PO UD PRN; Protocol PRN Reason: Hypoglycemia Treatment Stop: 06/23/22 21:09 Guaifenesin (Guaifenesin 200 Mg Tab) 200 mg PO Q6H [facility] Stop: 06/24/22 16:44 Last Admin: 05/28/22 05:42 Dose: 200 mg Methylprednisolone 40 mg/ (Syringe) 0.64 mls @ 1.5 mls/min IV Q8H [facility] Stop: 06/23/22 21:59 Last Admin: 05/28/22 05:42 Dose: 1.5 mls/min Lorazepam 0.5 mg/ Syringe 0.5 mls @ 2 mls/min IV Q6H PRN PRN Reason: Anxiety Stop: 06/24/22 22:51 Last Admin: 05/25/22 23:06 Dose: 2 mls/min Insulin Aspart (Insulin Aspart Per Unit) 0 units SC ACHS [facility] Stop: 06/23/22 21:29 Last Admin: 05/27/22 21:24 Dose: Not Given Lamotrigine (Lamotrigine 100 Mg Tab) 250 mg PO BID [facility] Stop: 06/23/22 21:29 Last Admin: 05/27/22 20:53 Dose: 250 mg Levetiracetam (Levetiracetam 500 Mg Tab) 1,500 mg PO BID [facility] Stop: 06/23/22 21:29 Last Admin: 05/27/22 20:52 Dose: 1,500 mg Levofloxacin (Levofloxacin 750 Mg Tab) 750 mg PO Q24H [facility] Stop: 06/03/22 17:44 Last Admin: 05/27/22 18:02 Dose: 750 mg Levothyroxine Sodium (Levothyroxine Sodium 125 Mcg Tablet) 125 mcg PO DAILYBB [facility] Stop: 06/24/22 08:59 Last Admin: 05/28/22 05:42 Dose: 125 mcg Magnesium Hydroxide (Magnesium Hydroxide Susp 30 Ml Udc) 30 ml PO Q12H PRN PRN Reason: Constipation Stop: 06/23/22 21:09 Magnesium Oxide (Magnesium Oxide 400 Mg Tab) 400 mg PO QAM [facility] Stop: 06/24/22 08:59 Last Admin: 05/27/22 09:22 Dose: 400 mg Melatonin (Melatonin 3 Mg Tab) 3 mg PO HS PRN PRN Reason: Sleep Stop: 06/23/22 21:52 Last Admin: 05/25/22 19:47 Dose: 3 mg Miscellaneous (Carbohydrates For Hypoglycemia ) 15 - 30 gm PO UD PRN PRN Reason: Hypoglycemia Protocol Stop: 06/23/22 21:09 Miscellaneous (Remove Nicoderm Patch) 1 each N/A DAILY@0859 [facility] Stop: 06/24/22 08:58 Last Admin: 05/27/22 09:23 Dose: 1 each Montelukast Sodium (Montelukast Sodium 10 Mg Tablet) 10 mg PO QAM [facility] Stop: 06/24/22 08:59 Last Admin: 05/27/22 09:22 Dose: 10 mg Nicotine (Nicotine 14 Mg/24 Hr Patch) 14 mg TD QAM [facility] Stop: 06/24/22 08:59 Last Admin: 05/27/22 09:23 Dose: 14 mg Nortriptyline HCl (Nortriptyline Hcl 25 Mg Cap) 25 mg PO HS [facility] Stop: 06/23/22 21:09 Last Admin: 05/27/22 20:52 Dose: 25 mg Pantoprazole Sodium (Pantoprazole 40 Mg Tab) 40 mg PO BID [facility] Stop: 06/24/22 21:29 Last Admin: 05/27/22 20:52 Dose: 40 mg Umeclidinium Ratcliff (Umeclidinium [place] 62.5mcg/Blister 7 Puffs/Inhaler) 1 puffs INH DAILY [facility] Stop: 06/26/22 15:14 Last Admin: 05/27/22 17:38 Dose: 1 puffs
[2022-05-28] MEDS: lamoTRIgine 100 MG TAB PO SCH ×2 (09:26→20:10)
[2022-05-28] MEDS: MONTELUKAST SODIUM 10 MG TABLET PO SCH (09:27)
[2022-05-28] MEDS: CYANOCOBALAMIN (B-12) 500 MCG TABLET PO SCH (09:27)
[2022-05-28] MEDS: MAGNESIUM OXIDE 400 MG TAB PO SCH (09:27)
[2022-05-28] MEDS: PANTOprazole 40 MG TAB PO SCH ×2 (09:27→20:11)
[2022-05-28] MEDS: NICOTINE 14 MG/24 HR PATCH TD SCH (09:27)
[2022-05-28] MEDS: FOLIC ACID 1 MG TAB PO SCH (09:27)
[2022-05-28] MEDS: FAMOTIDINE 20 MG TAB PO SCH ×2 (09:27→20:11)
[2022-05-28] MEDS: ENOXAPARIN INJ 40 MG/0.4 ML SYR SQ SCH ×2 (09:27→20:10)
[2022-05-28] MEDS: levETIRAcetam 500 MG TAB PO SCH ×2 (09:27→20:11)
[2022-05-28] MEDS: INSULIN ASPART PER UNIT SC SCH ×4 (09:28→20:51)
[2022-05-28] MEDS: FUROSEMIDE INJ 20 MG/2 ML VIAL IV SCH (09:28)
[2022-05-28] MEDS: UMECLIDINIUM BROMIDE 62.5MCG/BLISTER 7 PUFFS/INHALER INH SCH (09:28)
[2022-05-28] MEDS ORDERED: levoFLOXacin 750 MG TAB PO SCH (11:00)
--- NOTE | 2022-05-28 11:14 | Pulmonology Progress Note ---
Date of Service May 28, 2022 Assessment & Plan (1) Rhinovirus: (2) Abnormal CT scan of lung: (3) Hypoxemia: (4) Asthma exacerbation: Plan Impression: 26-year-old female with reported history of asthma but no PFTs available admitted with bio fire positive PCR and hypoxemia and wheezing. CT scan showed central groundglass opacities which may be viral in etiology. She is improved with transition to nebulized medication and steroids. Recommendations: 1. Questionable asthma: PFTs not available to review. This should be performed in the outpatient setting. She appears to be improving clinically. No eosinophils on CBC however it is expected that being on steroids would likely rapidly alleviate eosinophilia. IgE level is pending and can be followed up in the outpatient setting. We will continue prednisone 40 mg a day for 5 days and then discontinue. Continue Perforomist, budesonide, and Incruse. 2. Abnormal CT scan: Suspect findings are likely related to acute viral pneumonitis. PCT normal. At this point time I think antibiotics can be discontinued. Would recommend a follow-up noncontrast CT scan of the chest in 6 weeks to document resolution of these opacities. 3. Smoking cessation recommended to the patient. 4. Hypoxemia: Secondary to abnormal CT scan. Oxygenation is improving. Continue to wean supplemental oxygen as tolerated and maintain oxygen saturation at or above 88%. The patient may require two-step evaluation prior to discharge and may require supplemental oxygen to go home with for a brief period of time. This can be reassessed in the outpatient setting and discontinued in a few weeks with her primary care provider if she no longer demonstrates hypoxemia. 5. Yearly flu shot recommended. The patient significantly improved currently and is asking about possible going home. Will defer ultimate disposition to the patient's hospitalist provider. Pulmonary is available to assist in evaluation management this patient if needed however she appears significantly clinically improved at this point time. Admission and Anticipated Discharge Date Admission Date: May 24, 2022 Subjective Patient seen and examined. EMR reviewed. The patient states that she is feeling better. Wheezing is less. She has been out of bed to chair. She is ambulating in the room but wants to ambulate more. Her oxygen requirements are decreasing. She feels improved and is asking about going home. She is occasionally coughing but not expectorating any phlegm. No fevers chills or night sweats overnight Review of Systems Review of Systems: All systems reviewed & are unremarkable except as noted in Subjective Physical Exam Constitutional: WD/WN, vitals as above Neck: trachea midline, no thyromegaly Respiratory: no respiratory distress, no labored breathing and not tachypneic Auscultation: + wheezes Intermittent mid-to-late expiratory wheezes bi laterally Cardiovascular: RRR, no murmur, no edema Gastrointestinal (Abdomen): normal bowel sounds, soft, nontender, no hepatosplenomegaly Musculoskeletal: Extremities: extremities normal to inspection Skin: no rashes, warm and dry Neurologic: Nonfocal exam Lymphatic: no cervical lymphadenopathy Results & Data Results & Data ([facility]) Vital Signs (Past 12 Hours) Vital Signs Temp Pulse Pulse Resp BP Pulse Ox O2 Del Method 05/28/22 08:00 76 05/28/22 08:00 High Flow Nasal Cannula 05/28/22 07:36 36.4 C L 73 16 121/79 92 Room Air 05/28/22 07:21 104 H 20 95 Nasal Cannula 05/28/22 02:57 36.6 C 84 20 116/78 91 Nasal Cannula 05/27/22 23:21 36.4 C L 90 20 113/76 92 Nasal Cannula O2 Flow Rate 05/28/22 08:00 05/28/22 08:00 4 05/28/22 07:36 05/28/22 07:21 5 05/28/22 02:57 5.0 05/27/22 23:21 5.0 Laboratory Results 05/28/22 05:38 05/28/22 05:38 BMP normal Diagnostic Findings Echo reviewed. No acute abnormality PG Care Time/CCT Total # of Minutes Spent Total Time Spent with Patient: Total time spent is greater than 50% in coordination of care (as documented) at patient's floor/unit and/or counseling patient: Coding Level of Care Code 22142 Subseq Hosp Care Lvl 2 Diagnoses Rhinovirus B34.[address] scan of lung R91.8 Hypoxemia R09.02 Asthma exacerbation J45.901
[2022-05-28] MEDS: predniSONE 20 MG TAB PO SCH ×2 (12:52→20:11)
[2022-05-28] MEDS: NORTRIPTYLINE HCL 25 MG CAP PO SCH (20:11)
[2022-05-28] MEDS: BENZONATATE 100 MG CAPSULE PO PRN (22:02)
[2022-05-29] MEDS: guaiFENesin 200 MG TAB PO SCH ×2 (04:08→13:04)
[2022-05-29] MEDS: LEVOTHYROXINE SODIUM 125 MCG TABLET PO SCH (06:09)
[2022-05-29] MEDS: BENZONATATE 100 MG CAPSULE PO PRN (06:09)
[2022-05-29] MEDS: FORMOTEROL 20 MCG/2 ML VIAL NEB SCH (07:41)
[2022-05-29] MEDS: BUDESONIDE 0.5 MG/2 ML VIAL (PULMICORT) NEB SCH (07:41)
[2022-05-29] MEDS: FAMOTIDINE 20 MG TAB PO SCH (08:45)
[2022-05-29] MEDS: NICOTINE 14 MG/24 HR PATCH TD SCH (08:45)
[2022-05-29] MEDS: ENOXAPARIN INJ 40 MG/0.4 ML SYR SQ SCH (08:46)
[2022-05-29] MEDS: levETIRAcetam 500 MG TAB PO SCH (08:46)
[2022-05-29] MEDS: FUROSEMIDE INJ 20 MG/2 ML VIAL IV SCH (08:46)
[2022-05-29] MEDS: MONTELUKAST SODIUM 10 MG TABLET PO SCH (08:46)
[2022-05-29] MEDS: MAGNESIUM OXIDE 400 MG TAB PO SCH (08:46)
[2022-05-29] MEDS: CYANOCOBALAMIN (B-12) 500 MCG TABLET PO SCH (08:46)
[2022-05-29] MEDS: FOLIC ACID 1 MG TAB PO SCH (08:46)
[2022-05-29] MEDS: PANTOprazole 40 MG TAB PO SCH (08:46)
[2022-05-29] MEDS: lamoTRIgine 100 MG TAB PO SCH (08:46)
[2022-05-29] MEDS: predniSONE 20 MG TAB PO SCH (08:46)
[2022-05-29] MEDS: INSULIN ASPART PER UNIT SC SCH ×2 (08:47→13:04)
[2022-05-29] MEDS: UMECLIDINIUM BROMIDE 62.5MCG/BLISTER 7 PUFFS/INHALER INH SCH (08:47)
--- NOTE | 2022-05-29 10:19 | Hospitalist Progress Note ---
Date of Service May 29, 2022 Assessment & Plan (1) Pneumonia: Plan: Confirmed multilobar pneumonia on CT; per pulm this is more consistent with a viral pneumonitis. Biofire positive for enterovirus/rhinovirus. Levaquin stopped yesterday and she continues to do well this am. Solumedrol switched to prednison this am which she will continue for a short course. Continues on budesonide nebs, performist nebs and incruse ellipta. As oxygen needs are still elevated will keep an additional day and continue weaning. IS encouraged and is present on her bedside table. Discussed case with nurse and she is walking laps. She was educated on the risks of smoking with pureoxygen gas and verbalized understanding. Repeat CT scan in 4-6 weeks to ensure complete resolution of chest findings. (2) Asthma exacerbation: Plan: per pulm, uncertain history of asthma. Patient is on ICS/LABA as outpatient as well as Singulair. Wheezing and hypoxia continue to resolve. PFTs as outpatient once resolved. (3) Current every day smoker: Plan: Smoking cessation strongly advised. (4) Hypothyroidism: Plan: chronic, stable. Would hold off on ordering updated TFTs in acute illness. Cont home Synthroid. (5) H/O tonic-clonic seizures: Plan: chronic, stable on lamotrigine and levitiracetam. (6) Metabolic syndrome: Plan: On metformin as outpatient. Metformin held and insulin with carb overage and correction factor given in setting of steroids. Cautiously watch for hypoglycemia. (7) Morbid obesity: Plan: Lifestyle modifications recommended (8) GERD (gastroesophageal reflux disease): Plan: cont PPI per home regimen. (9) DVT prophylaxis: Plan: Lovenox BID Full code Diapo-to home when off oxygen, likely tomorrow. 2 step ordered for am. [facility] Admission and Anticipated Discharge Date Admission Date: May 24, 2022 Subjective 26 yo patient admitted for hypoxia and SOB in setting of pneumonia and asthma exacerbation. In the last 24 hours her antibiotics have been stopped as this appears to be more consistent with a viral pneumonitis Hypoxia is improved but she is still requiring 3 L/min at rest. We discussed again the importance of smoking cessation completely especially given the need for possible oxygen on her way home. We discussed staying an additional day and titrating down on her oxygen is much as possible prior to having to go home. She has a need for childcare on Tuesday and cannot find additional support for her child, therefore needs to leave tomorrow. No reports of cough and shortness of breath is improved. She feels overall much better. Scant wheezing still present in the lungs. She also transition from IV Solu- Medrol to prednisone this morning. Continues with budesonide nebulizers and states this is helping her a lot Review of Systems Review of Systems: All systems were reviewed and negative except as indicated above. Physical Exam Physical Exam: CONSTITUTIONAL: obese, vitals as above, generally well- appearing, NAD EYES: normal conjunctivae, no scleral icterus ENT: external ear and nose normal, MMM NECK: trachea midline RESPIRATORY: Scant wheezes at bases, no crackles or rales, normal respiratory effort, +supplemental oxygen CARDIOVASCULAR: regular rate and rhythm, S1 and 2 heard without murmurs, gallops or rubs, no JVD, no peripheral edema CHEST: inspection of chest was normal GASTROINTESTINAL: soft, nontender, ND, no guarding MUSCULOSKELETAL: strength 5/5 throughout, head is normocephalic and atraumatic SKIN: warm and dry NEUROLOGIC: CN 2-12 grossly intact, no sensory deficit, normal cognition, normal speech, no tremor PSYCHIATRIC: alert cooperative and oriented to person, place and time. Euthymic mood, makes good eye contact, language grossly intact, recent and remote memory grossly intact. Results & Data Results & Data ([facility]) Vital Signs (Past 12 Hours) Vital Signs Temp Pulse Pulse Pulse Resp BP Pulse Ox 05/29/22 08:00 83 05/29/22 08:00 05/29/22 08:06 36.5 C 97 H 18 121/87 92 05/29/22 07:43 86 22 94 05/29/22 04:00 36.7 C 67 18 131/85 96 05/28/22 22:57 36.5 C 77 18 118/85 92 05/28/22 23:00 94 H O2 Del Method O2 Flow Rate 05/29/22 08:00 05/29/22 08:00 Nasal Cannula 05/29/22 08:06 Nasal Cannula 3 05/29/22 07:43 Nasal Cannula 3 05/29/22 04:00 Nasal Cannula 3 05/28/22 22:57 Nasal Cannula 4.0 05/28/22 23:00 Medications Administered Current Inpatient Medications Acetaminophen (Acetaminophen 325 Mg Tab) 650 mg PO Q4H PRN PRN Reason: Pain or Fever Stop: 06/23/22 21:09 Last Admin: 05/27/22 20:57 Dose: 650 mg Al Hydrox/Mg Hydrox/Simethicone (Aluminum/Magnesium Susp 30 Ml Udc) 15 ml PO Q4H PRN PRN Reason: Dyspepsia Stop: 06/23/22 21:09 Benzonatate (Benzonatate 100 Mg Capsule) 100 mg PO TID PRN PRN Reason: Cough Stop: 06/25/22 22:05 Last Admin: 05/29/22 06:09 Dose: 100 mg Budesonide (Budesonide 0.5 Mg/2 Ml Vial (Pulmicort)) 0.5 mg NEB BIDR [facility] Stop: 06/26/22 18:59 Last Admin: 05/29/22 07:41 Dose: 0.5 mg Cyanocobalamin (Cyanocobalamin (B-12) 500 Mcg Tablet) 1,000 mcg PO QAM [facility] Stop: 06/24/22 08:59 Last Admin: 05/29/22 08:46 Dose: 1,000 mcg Dextrose (Dextrose 50% 50 Ml Syringe) 25 - 50 ml IV UD PRN; Protocol PRN Reason: Hypoglycemia Protocol Stop: 06/23/22 21:09 Enoxaparin Sodium (Enoxaparin Inj 40 Mg/0.4 Ml Syr) 40 mg SQ BID MENDY Stop: 06/24/22 20:59 Last Admin: 05/29/22 08:46 Dose: 40 mg Famotidine (Famotidine 20 Mg Tab) 20 mg PO BID MENDY Stop: 06/23/22 21:29 Last Admin: 05/29/22 08:45 Dose: 20 mg Folic Acid (Folic Acid 1 Mg Tab) 3 mg PO QAM [facility] Stop: 06/24/22 08:59 Last Admin: 05/29/22 08:46 Dose: 3 mg Formoterol Fumarate (Formoterol 20 Mcg/2 Ml Vial) 20 mcg NEB BID MENDY Stop: 06/26/22 20:59 Last Admin: 05/29/22 07:41 Dose: 20 mcg Glucagon (Glucagon For Inj 1 Mg Vial) 1 mg SQ UD PRN; Protocol PRN Reason: Hypoglycemia Protocol Stop: 06/23/22 21:09 Glucose (Glucose 40% Gel 15 Gm Tube) 15 - 30 gm PO UD PRN; Protocol PRN Reason: Hypoglycemia Protocol Stop: 06/23/22 21:09 Glucose (Glucose 10 Tab/Tube) 4 - 8 tab PO UD PRN; Protocol PRN Reason: Hypoglycemia Treatment Stop: 06/23/22 21:09 Guaifenesin (Guaifenesin 200 Mg Tab) 200 mg PO Q6H MEND[facility] Stop: 06/24/22 16:44 Last Admin: 05/29/22 04:08 Dose: 200 mg Lorazepam 0.5 mg/ Syringe 0.5 mls @ 2 mls/min IV Q6H PRN PRN Reason: Anxiety Stop: 06/24/22 22:51 Last Admin: 05/25/22 23:06 Dose: 2 mls/min Insulin Aspart (Insulin Aspart Per Unit) 0 units SC ACHS MENDY Stop: 06/23/22 21:29 Last Admin: 05/29/22 08:47 Dose: Not Given Lamotrigine (Lamotrigine 100 Mg Tab) 250 mg PO BID MENDY Stop: 06/23/22 21:29 Last Admin: 05/29/22 08:46 Dose: 250 mg Levetiracetam (Levetiracetam 500 Mg Tab) 1,500 mg PO BID MENDY Stop: 06/23/22 21:29 Last Admin: 05/29/22 08:46 Dose: 1,500 mg Levothyroxine Sodium (Levothyroxine Sodium 125 Mcg Tablet) 125 mcg PO DAILYBB MENDY Stop: 06/24/22 08:59 Last Admin: 05/29/22 06:09 Dose: 125 mcg Magnesium Hydroxide (Magnesium Hydroxide Susp 30 Ml Udc) 30 ml PO Q12H PRN PRN Reason: Constipation Stop: 06/23/22 21:09 Magnesium Oxide (Magnesium Oxide 400 Mg Tab) 400 mg PO QAM [facility]END[facility] Stop: 06/24/22 08:59 Last Admin: 05/29/22 08:46 Dose: 400 mg Miscellaneous (Carbohydrates For Hypoglycemia ) 15 - 30 gm PO UD PRN PRN Reason: Hypoglycemia Protocol Stop: 06/23/22 21:09 Miscellaneous (Remove Nicoderm Patch) 1 each N/A DAILY@0859 [facility] Stop: 06/24/22 08:58 Last Admin: 05/29/22 08:47 Dose: 1 each Montelukast Sodium (Montelukast Sodium 10 Mg Tablet) 10 mg PO QAM [facility] Stop: 06/24/22 08:59 Last Admin: 05/29/22 08:46 Dose: 10 mg Nicotine (Nicotine 14 Mg/24 Hr Patch) 14 mg TD QAM [facility] Stop: 06/24/22 08:59 Last Admin: 05/29/22 08:45 Dose: 14 mg Nortriptyline HCl (Nortriptyline Hcl 25 Mg Cap) 25 mg PO HS MENDY Stop: 06/23/22 21:09 Last Admin: 05/28/22 20:11 Dose: 25 mg Pantoprazole Sodium (Pantoprazole 40 Mg Tab) 40 mg PO BID MENDY Stop: 06/24/22 21:29 Last Admin: 05/29/22 08:46 Dose: 40 mg Prednisone (Prednisone 20 Mg Tab) 20 mg PO BID MENDY Stop: 06/27/22 11:14 Last Admin: 05/29/22 08:46 Dose: 20 mg Umeclidinium Bailey (Umeclidinium Bailey 62.5mcg/Blister 7 Puffs/Inhaler) 1 puffs INH DAILY MENDY Stop: 06/26/22 15:14 Last Admin: 05/29/22 08:47 Dose: 1 puffs
--- NOTE | 2022-05-29 16:01 | Discharge Summary ---
Discharge Summary Date of Service May 29, 2022 Admission HPI Per Admitting Provider MS. Monahan is a 26 year old female who presented to the [facility] with increased SOB and wheezing. She was seen by her PCP today and received IM steroids with a nebulizer treatment. She called 911 from home as she felt she could not catch her breath and had increasing wheezing. CXR shows mild left lung opacities and possible atelectasis vs PNA. She has a PMH that includes: anxiety, H/O DVT, H/O seizures, diabetes type 2, HLD, , acanthosis nigricans, hypothyroidism, GERD, PTSD, and depression. Patient is sitting in her bed in apparent distress. She is able to speak in complete sentences; however, becomes quite winded and her SpO2 on 10L oxymask is 91%. Due to her history of DVT, need to consider PE; D-Dimer pending. Pt denies CORTEZ, dizziness (although says she has orthostasis), CP, palpitations, N/V/D, no recent trauma and no recent falls. Patient will be admitted under Hospitalist service for further evaluation and management. Please see A/P for further details. Principal Dx & Hospital Course #1 = Principal Diagnosis (1) Pneumonia: Confirmed multilobar pneumonia on CT; per pulm this is more consistent with a viral pneumonitis. Biofire positive for enterovirus/rhinovirus. Levaquin stopped yesterday and she continues to do well this am. Solumedrol switched to prednison this am which she will continue for a short course. Continues on budesonide nebs, performist nebs and incruse ellipta. As oxygen needs are still elevated will keep an additional day and continue weaning. IS encouraged and is present on her bedside table. Discussed case with nurse and she is walking laps. She was educated on the risks of smoking with pureoxygen gas and verbalized understanding. Repeat CT scan in 4-6 weeks to ensure complete resolution of chest findings. (2) Asthma exacerbation: per pulm, uncertain history of asthma. Patient is on ICS/LABA as outpatient as well as Singulair. Wheezing and hypoxia continue to resolve. PFTs as outpatient once resolved. (3) Current every day smoker: Smoking cessation strongly advised. (4) Hypothyroidism: chronic, stable. Would hold off on ordering updated TFTs in acute illness. Cont home Synthroid. (5) H/O tonic-clonic seizures: chronic, stable on lamotrigine and levitiracetam. (6) Metabolic syndrome: On metformin as outpatient. Metformin held and insulin with carb overage and correction factor given in setting of steroids. Cautiously watch for hypoglycemia. (7) Morbid obesity: Lifestyle modifications recommended (8) GERD (gastroesophageal reflux disease): cont PPI per home regimen. (9) DVT prophylaxis: Lovenox BID Full code Diapo-to home when off oxygen, likely tomorrow. 2 step ordered for am. DO [facility] Hospital[facility] Discharge Exam CONSTITUTIONAL: obese, vitals as above, generally well-appearing, NAD EYES: normal conjunctivae, no scleral icterus ENT: external ear and nose normal, MMM NECK: trachea midline RESPIRATORY: Scant wheezes at bases, no crackles or rales, normal respiratory effort, +supplemental oxygen CARDIOVASCULAR: regular rate and rhythm, S1 and 2 heard without murmurs, gallops or rubs, no JVD, no peripheral edema CHEST: inspection of chest was normal GASTROINTESTINAL: soft, nontender, ND, no guarding MUSCULOSKELETAL: strength 5/5 throughout, head is normocephalic and atraumatic SKIN: warm and dry NEUROLOGIC: CN 2-12 grossly intact, no sensory deficit, normal cognition, normal speech, no tremor PSYCHIATRIC: alert cooperative and oriented to person, place and time. Euthymic mood, makes good eye contact, language grossly intact, recent and remote memory grossly intact. Updated Medication List Medication Instructions Recorded Confirmed Type albuterol sulfate 90 mcg/actuation 2 puff inhalation Q6H PRN 08/19/18 05/24/22 History aerosol inhaler (Ventolin HFA) Shortness Of Breath Or Wheezing folic acid 1 mg tablet 3 mg PO QAM 08/19/18 05/24/22 History lamotrigine 200 mg tablet 200 mg PO BID 08/19/18 05/24/22 History (Lamictal) levetiracetam 1,000 mg tablet 1,000 mg PO BID 08/19/18 05/24/22 History (Keppra) levetiracetam 500 mg tablet 500 mg PO BID 08/19/18 05/24/22 History (Keppra) nortriptyline 25 mg capsule 25 mg PO HS 08/19/18 05/24/22 History cyanocobalamin (vitamin B-12) 1,000 mcg PO QAM 08/02/19 05/24/22 History 1,000 mcg tablet (Vitamin B-12) magnesium oxide 400 mg (241.3 mg 400 mg PO QAM 08/02/19 05/24/22 History magnesium) tablet albuterol sulfate 2.5 mg/3 mL 2.5 mg inhalation Q4H PRN Wheezing 07/29/20 05/24/22 History (0.083 %) solution for nebulization famotidine 20 mg tablet 20 mg PO BID 07/29/20 05/24/22 History lamotrigine 100 mg tablet 50 mg PO BID 07/29/20 05/24/22 History levothyroxine 125 mcg tablet 125 mcg PO QAM 07/29/20 05/24/22 History (Synthroid) montelukast 10 mg tablet 10 mg PO QAM 07/29/20 05/24/22 History fluticasone 250 mcg-salmeterol 50 1 ea inhalation BID 11/01/20 05/24/22 History mcg/dose blistr powdr for inhalation (Advair Diskus) esomeprazole magnesium 20 mg 20 mg PO BID 06/28/21 05/24/22 History capsule,delayed release prednisone 20 mg tablet 20 mg PO BID #10 tabs 05/29/22 Rx Hospital Stay Data Consultations 05/24/22 16:53 ED Decision to Admit Stat 05/27/22 08:20 Consult Pulmonology Routine Diagnostic Imagining Performed 05/27/22 10:29 CT chest diagnostic wo con Urgent Pending Results Patient Have Any Pending Studies at Discharge: Yes Discharge Instructions Given to Patient (Per Discharging Provider) Please take prednisone for an additional 5 days and then stop. Please use your home albuterol rescue inhaler or nebulizer as needed. Please follow-up with your primary care provider within one week of hospital discharge to ensure you are doing well after returning home, to order pulmonary function tests, and to order a repeat chest CT in 4-6 weeks to ensure complete resolution of lung inflammation (pneumonitis). It is essential that you stop smoking as this is terrible for your health. Please continue to work with your outpatient provider in this effort. It was a pleasure taking care of you! Please call if you have any questions or problems. You can reach a [place] Hospitalist on duty at [facility] 24 hours a day by calling [phone]. Take care of yourself. Tammy Stearns, [facility]
== END 2022-05-29 16:32 | disposition home or self-care (01) | DRG 871 ==
LOC: ED 14:49 → SUATTDRO 17:27 → 4W 17:27

== ENCOUNTER 2023-05-16 21:45 | Observation (INO) ==
[2023-05-16] MEDS ORDERED: SODIUM CHLORIDE 0.9% 1,000 ML IV SCH (22:00)
--- NOTE | 2023-05-16 22:04 | Emergency Department Note ---
Impression & Plan Seizures ED Provider Note NAME: NANETTE MATUTE AGE: 27 SEX: F : 1995 ARRIVES VIA: Ambulance INFORMANT: Patient, ED PROVIDER(S): Jeff Gallagher MD CHIEF COMPLAINT: Seizures MEDICAL DECISION MAKING: Patient does present due to concern for breakthrough seizures x3 that occurred prior to arrival. The patient did receive Ativan and in route no subsequent seizures. The patient was ordered a Keppra load of 3 g. Patient reportedly does take Keppra and Lamictal has not yet taken her evening dose. Patient did have an IV established and blood work was obtained. White count of 12 with mild elevation hemoglobin of 16 with normal platelet count. The patient has had mild cough so chest x-ray was ordered. Kidney function is unremarkable with grossly normal electrolytes. COVID flu and RSV negative. Urinalysis without evidence of blood or infection. UPT negative. Chest x-ray with no obvious pneumonia. Patient is back to baseline and does not have any recurrence of seizures since presenting to the emergency department. However, given that the patient did have several breakthrough seizures even on her typical maintenance medication it has been greater than 2 years since her last seizure I did recommend inpatient treatment. Patient is comfortable with this plan of care. I did speak the on- call hospitalist Dr. Reyes and the patient was admitted to the medicine service. Patient CT does not show any acute findings Discussion w/ other healthcare providers: None Prior /Outside records reviewed: I did review a pulmonary event medicine visit from Dr. Segura from December 2022. Patient did have history of asthma multifocal pneumonia and is a current smoker Differential diagnosis: Epilepsy, infection, hypoglycemia, electrolyte abnormalities, cardiac sources, intracerebral event, trauma, toxicologic, neurologic, syncope, as well as other pathologies. Diagnostics, as interpreted by me: ECG: Sinus tachycardia, rate of 102, normal [place] and QRS, normal axis, T wave inversion in V2. No significant change from comparison EKG October 05, 2022 Cardiac monitoring: An order was placed for continuous cardiac monitoring. The monitor shows a rate of 85 with sinus rhythm. Patient was placed on pulse oximetry Medical decision rules: None Imaging studies: I informally interpreted the patient's CT of the head which does not show obvious ICH with formal report to follow. I informally interpreted the patient's chest x-ray which does not show obvious pneumonia with formal report to follow HPI: Patient presents due to concern for seizure. The patient does have a known history of seizure disorder. I did receive EMS report of the patient did seize 3 times and did receive some Ativan in route and since receiving the Ativan no further seizures. Patient reports that she has had mild cough which is occasionally productive. She does have a known history of asthma. Patient otherwise denies any infectious symptoms. No fevers or chills. Patient has no chest pains or shortness of breath. Patient states she is compliant with her medications which include Keppra and Lamictal which she did take this morning but is not yet taken her evening dose. Patient denies any alcohol tobacco or drug use. No supplements or stimulants. Patient does have a reported prior history of CVA. EMS reported the patient had complained of some mild decrease sensation of the right hand which is currently not present. The patient denies any changes in symptoms at this time. PAST MEDICAL HISTORY: See Below PAST SURGICAL HISTORY: See Below SOCIAL HISTORY: See Below HOME MEDICATIONS: See Below ALLERGIES: See Below VITALS: See Below PHYSICAL EXAMINATION: GENERAL: NAD, non-toxic. Wearing glasses. EYE EXAM: Normal conjunctiva. PERRL, no anisocoria and EOM's grossly intact w/o pain. OROPHARYNX: Moist mucus membranes, grossly normal dentition. NECK: Supple, no nuchal rigidity, no adenopathy, non-tender. No signs of meningismus. FROM of the neck with good chin to chest and neck extension. No stridor. LUNGS: Clear to auscultation. Normal chest wall mechanics. HEART: NSR, no MRG. ABDOMEN: Abdomen soft, non-tender, no masses, no rebound or guarding. BACK: No CVA TTP. SKIN: No rashes and no bruising. UPPER EXTREMITIES: Upper extremities are grossly normal. LOWER EXTREMITIES: Grossly normal, no edema. NEURO EXAM: A&O x3, cranial nerves II-XII grossly intact, normal speech, moves all 4 extremities. Good [id number], no drift and no sensory deficits Past Med/Surg History Medical History Abnormal CT scan of lung Acanthosis nigricans, acquired Allergic rhinitis due to animal (cat) (dog) hair and dander Allergic rhinitis due to dust mite Allergic rhinitis due to grass pollen Allergic rhinitis due to mold Allergic rhinitis due to tree pollen Allergic rhinitis due to weed pollen Allergy to cockroaches Anxiety Anxiety Asthma Asthma exacerbation Chronic idiopathic urticaria Chronic rhinitis Current every day smoker Depression Diabetes type 2, controlled Dyslipidemia Epilepsy also absence and pseudoseizures Food sensitivity with gastrointestinal symptoms GERD (gastroesophageal reflux disease) H/O deep venous thrombosis H/O tonic-clonic seizures Heart palpitations Hemorrhage of rectum and anus Hepatomegaly Hypothyroidism Inappropriate sinus tachycardia F/U DR LUO [facility]. On Corlanor, which has significantly improved symptoms. Kidney stone HX OAB (overactive bladder) Obesity Ovarian cyst Overactive bladder Peanut allergy Pruritus PTSD (post-traumatic stress disorder) Seizures LAST SEIZURE ~ 08/2019. F/U DR VILLANUEVA NEUROLOGIST CHRISTOPHER CASTREJON [facility]. Most recent OV 03/2020, stable, deemed OK for endoscopy. Severe persistent asthma Tobacco use Surgical History H/O colonoscopy H/O esophagogastroduodenoscopy H/O foot surgery History of cystoscopy TO REMOVE KIDNEY STONES History of myringotomy Hx of cholecystectomy Nausea and vomiting after administration of anesthetic agent X 1 S/P laparoscopic cholecystectomy S/P laparoscopic hysterectomy TLH-BS S/P removal of ovarian cyst laparoscopic, before hyst Status post Mohs surgery Family History Mother Family history of diabetes mellitus Grandmother (Maternal) Family history of diabetes mellitus Breast cancer Father Cancer Denies family history of Ovarian cancer Prostate cancer Colorectal cancer Social History Smoking Status: Current every day smoker Tobacco Type: Cigarettes Cigarettes Per Day: 1/2 ppd; Second Hand Exposure: No; Do You Dip or Chew Tobacco: No; Hx Alcohol Use: No Hx Substance Use: No Preferred Language: Slovenian Communication Ability: Effective [employer] Tm1 Developer Required: No Beliefs That Will Affect Care: None Current Living Situation: Family Current Living Situation Comment: Pt lives at home with her father, Mario Feels Safe at Home: Yes Assistive Devices: Glasses Allergies Allergies Allergy/AdvReac Type Severity Reaction Status Date / Time hydromorphone Allergy Severe Respirations Verified 05/11/23 09:54 stopped. peanut Allergy Severe ALL Verified 05/11/23 09:54 NUTS-HIVES, SOB amoxicillin Allergy Intermediate Rash Verified 05/11/23 09:54 morphine Allergy Intermediate Hives Verified 05/11/23 09:54 oxycodone Allergy Intermediate Hives Verified 05/11/23 09:54 fish derived Allergy Unknown Unknown Verified 05/11/23 09:54 levofloxacin AdvReac Severe Seizure Verified 05/17/23 10:07 adhesive AdvReac Mild Rash Verified 05/11/23 09:54 Home Meds Home Medications Medication Instructions Recorded Confirmed albuterol sulfate 2.5 mg/3 mL 2.5 mg continuous nebulization Q4H 05/17/23 05/17/23 (0.083 %) solution for nebulization PRN Shortness Of Breath Or Wheezing budesonide-formoterol HFA 160 1 inh inhalation BID 05/17/23 05/17/23 mcg-4.5 mcg/actuation aerosol inhaler (Symbicort) buspirone 10 mg tablet 10 mg PO BID 05/17/23 05/17/23 famotidine 20 mg tablet (Pepcid) 20 mg PO DAILY 05/17/23 05/17/23 lamotrigine 100 mg tablet 50 mg PO BID 05/17/23 05/17/23 (Lamictal) lamotrigine 200 mg tablet 200 mg PO BID 05/17/23 05/17/23 (Lamictal) levetiracetam 1,000 mg tablet 1,000 mg PO BID 05/17/23 05/17/23 (Keppra) levetiracetam 500 mg tablet 500 mg PO BID 05/17/23 05/17/23 (Keppra) levothyroxine 125 mcg tablet 125 mcg PO DAILY 05/17/23 05/17/23 montelukast 10 mg tablet 10 mg PO DAILY 05/17/23 05/17/23 rabeprazole 20 mg tablet,delayed 20 mg PO DAILY 05/17/23 05/17/23 release tiotropium bromide 1.25 2 puff inhalation DAILY 05/17/23 05/17/23 mcg/actuation mist for inhalation (Spiriva Respimat) Previous Rx's Medication Instructions Recorded Flutter Valve #1 ea 08/24/22 inhalational spacing device #1 ea 08/26/22 Oxygen Home #1 ea 10/25/22 Results & Data (ED) Vital Signs Vital Signs - 24 hr 05/16/23 21:51 05/16/23 21:51 05/16/23 21:51 Temperature 37.2 C 37.2 C Temperature Source Oral Oral Pulse Rate 100 H Pulse Rate [Apical] 103 H Pulse Rhythm [Apical] Regular Respiratory Rate 18 22 Respiratory Effort / Characteristics Non-Labored Non-Labored Respiratory Depth Normal Normal Respiratory Pattern Regular Blood Pressure 115/79 Blood Pressure [Left Arm] 122/76 Blood Pressure Mean 91 Blood Pressure Mean [Left Arm] 91 Pulse Oximetry 98 100 Oxygen Delivery Method Room Air Room Air Room Air Oxygen Flow Rate 100 Sepsis Recent Fever Within 48 Hours No Sepsis New/Unexplained Change in Mental Status No Sepsis Action Taken by Nursing No Action Required Home Medications Current Medication List: was personally reviewed by me Laboratory Data Attestation: I reviewed the patient's lab results. 05/18/23 05:42 05/18/23 05:42 Lab Results 05/16/23 05/16/23 05/17/23 Range/Units 22:00 22:00 00:00 WBC 12.37 H (4.8-10.8) K/ul RBC 5.24 (4.20-5.40) M/uL Hgb 16.3 H (12.0-16.0) g/dl Hct 48.2 H (37.0-47.0) % MCV 92.0 (80.0-100.0) fL MCH 31.1 (25.0-34.0) pg MCHC 33.8 (32.0-36.0) g/dL RDW Std Deviation 45.1 (36.4-46.3) fL RDW Coeff of Thao 13.3 (11.5-14.5) % Plt Count 336 (130-400) K/uL MPV 9.7 (9.4-12.4) fL Immature Gran % (Auto) 0.2 % Neut % (Auto) 66.1 % Lymph % (Auto) 22.6 % Otero % (Auto) 6.8 % Eos % (Auto) 4.0 % Baso % (Auto) 0.3 % Neut # (Auto) 8.16 H (1.40-6.50) K/uL Lymph # (Auto) 2.80 (1.20-3.40) K/uL Otero # (Auto) 0.84 H (0.11-0.59) K/uL Eos # (Auto) 0.50 (0.00-0.50) K/uL Baso # (Auto) 0.04 (0.00-0.20) K/uL Immature Gran # (Auto) 0.03 (0.01-0.20) K/uL Sodium 138 (136-145) mmol/L Potassium 3.7 (3.5-5.1) mmol/L Chloride 104 (98-107) mmol/L Carbon Dioxide 26 (21-32) mmol/L Anion Gap 8 (3-11) BUN 12 (6-23) mg/dl Creatinine 0.69 (0.6-1.2) mg/dl Est Cr Clr Drug Dosing 161.9 ml/min Est GFR ( Amer) 138.3 ml/min Est GFR (Non-Af Amer) 119.3 ml/min BUN/Creatinine Ratio 17.4 (10-20) Glucose 86 (70-99(Fasting)) mg/dl Calcium 10.2 (8.6-10.3) mg/dl Phosphorus 3.0 (2.5-4.9) mg/dl Magnesium 2.0 (1.7-2.4) mg/dl Total Bilirubin 0.4 (0.2-1.0) mg/dl AST 16 (13-39) U/L ALT 20 (7-52) U/L Alkaline Phosphatase 73 (34-104) U/L Total Protein 8.4 H (6.0-8.3) gm/dl Albumin 4.9 (3.4-5.0) gm/dl Globulin 3.5 (2.5-4.0) gm/dl Albumin/Globulin Ratio 1.4 (0.9-2) Urine Color Urine Appearance (Clear) Urine pH (4.5-7.5) Ur Specific Brandon (1.000-1.030) Urine Protein (Negative) Urine Glucose (UA) (Negative) Urine Ketones (Negative) Urine Blood (Negative) Urine Nitrite (Negative) Urine Bilirubin (Negative) Urine Urobilinogen (Negative) Ur Leukocyte Esterase (Negative) Urine Test (Negative) SARS-CoV-2 (PCR) NEGATIVE (Negative) Influenza Type A (PCR) Negative (Neg) Influenza Type B (PCR) Negative (Neg) RSV (RT-PCR) Negative (Neg) 05/17/23 05/17/23 Range/Units 00:14 00:14 WBC (4.8-10.8) K/ul RBC (4.20-5.40) M/uL Hgb (12.0-16.0) g/dl Hct (37.0-47.0) % MCV (80.0-100.0) fL MCH (25.0-34.0) pg MCHC (32.0-36.0) g/dL RDW Std Deviation (36.4-46.3) fL RDW Coeff of Thao (11.5-14.5) % Plt Count (130-400) K/uL MPV (9.4-12.4) fL Immature Gran % (Auto) % Neut % (Auto) % Lymph % (Auto) % Otero % (Auto) % Eos % (Auto) % Baso % (Auto) % Neut # (Auto) (1.40-6.50) K/uL Lymph # (Auto) (1.20-3.40) K/uL Otero # (Auto) (0.11-0.59) K/uL Eos # (Auto) (0.00-0.50) K/uL Baso # (Auto) (0.00-0.20) K/uL Immature Gran # (Auto) (0.01-0.20) K/uL Sodium (136-145) mmol/L Potassium (3.5-5.1) mmol/L Chloride (98-107) mmol/L Carbon Dioxide (21-32) mmol/L Anion Gap (3-11) BUN (6-23) mg/dl Creatinine (0.6-1.2) mg/dl Est Cr Clr Drug Dosing ml/min Est GFR ( Amer) ml/min Est GFR (Non-Af Amer) ml/min BUN/Creatinine Ratio (10-20) Glucose (70-99(Fasting)) mg/dl Calcium (8.6-10.3) mg/dl Phosphorus (2.5-4.9) mg/dl Magnesium (1.7-2.4) mg/dl Total Bilirubin (0.2-1.0) mg/dl AST (13-39) U/L ALT (7-52) U/L Alkaline Phosphatase (34-104) U/L Total Protein (6.0-8.3) gm/dl Albumin (3.4-5.0) gm/dl Globulin (2.5-4.0) gm/dl Albumin/Globulin Ratio (0.9-2) Urine Color Yellow Urine Appearance Clear (Clear) Urine pH 6.5 (4.5-7.5) Ur Specific Brandon 1.012 (1.000-1.030) Urine Protein Negative (Negative) Urine Glucose (UA) Negative (Negative) Urine Ketones Negative (Negative) Urine Blood Negative (Negative) Urine Nitrite Negative (Negative) Urine Bilirubin Negative (Negative) Urine Urobilinogen Negative (Negative) Ur Leukocyte Esterase Negative (Negative) Urine Test Negative (Negative) SARS-CoV-2 (PCR) (Negative) Influenza Type A (PCR) (Neg) Influenza Type B (PCR) (Neg) RSV (RT-PCR) (Neg) Administered Medications Acetaminophen (Acetaminophen 325 Mg Tab) 650 mg PO Q4H PRN PRN Reason: Pain or Fever Stop: 06/16/23 01:37 Last Admin: 05/17/23 14:22 Dose: 650 mg Documented By: NADIA Buspirone HCl (Buspirone 5 Mg Tab) 10 mg PO BID [facility] Stop: 06/16/23 08:59 Last Admin: 05/18/23 08:15 Dose: 10 mg Documented By: Admin: 05/17/23 20:43 Dose: 10 mg Documented By: Admin: 05/17/23 10:04 Dose: 10 mg Documented By: ROXI Enoxaparin Sodium (Enoxaparin Inj 40 Mg/0.4 Ml Syr) 40 mg SQ Q24H MENDY Stop: 06/16/23 08:59 Last Admin: 05/18/23 08:17 Dose: 40 mg Documented By: Admin: 05/17/23 10:04 Dose: 40 mg Documented By: ROXI Famotidine (Famotidine 20 Mg Tab) 20 mg PO DAILY MENDY Stop: 06/16/23 08:59 Last Admin: 05/18/23 08:16 Dose: 20 mg Documented By: Admin: 05/17/23 10:05 Dose: 20 mg Documented By: ROXI Fluticasone/Vilanterol (Fluticasone/Vilanterol 200/25mcg 14 Puffs/Inhaler) 1 puffs INH DAILY MENDY Stop: 06/16/23 08:59 Last Admin: 05/18/23 08:13 Dose: 1 puffs Documented By: Admin: 05/17/23 10:05 Dose: 1 puffs Documented By: ROXI Guaifenesin (Guaifenesin 600 Mg Tabcr) 600 mg PO Q12 MENDY Stop: 06/16/23 20:59 Last Admin: 05/18/23 08:16 Dose: 600 mg Documented By: Admin: 05/17/23 20:41 Dose: 600 mg Documented By: YANA Lamotrigine (Lamotrigine 100 Mg Tab) 200 mg PO BID MENDY Stop: 06/16/23 08:59 Last Admin: 05/18/23 08:18 Dose: 200 mg Documented By: Admin: 05/17/23 20:42 Dose: 200 mg Documented By: Admin: 05/17/23 10:04 Dose: 200 mg Documented By: ROXI Lamotrigine (Lamotrigine 25 Mg Tab) 50 mg PO BID MENDY Stop: 06/16/23 08:59 Last Admin: 05/18/23 08:15 Dose: 50 mg Documented By: Admin: 05/17/23 20:43 Dose: 50 mg Documented By: Admin: 05/17/23 10:05 Dose: 50 mg Documented By: ROXI Levetiracetam (Levetiracetam 500 Mg Tab) 1,500 mg PO BID MENDY Stop: 06/16/23 08:59 Last Admin: 05/18/23 08:14 Dose: 1,500 mg Documented By: Admin: 05/17/23 20:44 Dose: 1,500 mg Documented By: Admin: 05/17/23 10:03 Dose: 1,500 mg Documented By: ROXI Levothyroxine Sodium (Levothyroxine Sodium 125 Mcg Tablet) 125 mcg PO DAILYBB MENDY Stop: 06/16/23 06:29 Last Admin: 05/18/23 05:59 Dose: 125 mcg Documented By: Admin: 05/17/23 08:20 Dose: 125 mcg Documented By: ROXI Miscellaneous (Remove Nicoderm Patch) 1 each N/A DAILY@0859 MENDY Stop: 06/17/23 08:58 Last Admin: 05/18/23 08:17 Dose: 1 each Documented By: NADIA Montelukast Sodium (Montelukast Sodium 10 Mg Tablet) 10 mg PO DAILY MENDY Stop: 06/16/23 08:59 Last Admin: 05/18/23 08:15 Dose: 10 mg Documented By: Admin: 05/17/23 10:05 Dose: 10 mg Documented By: ROXI Nicotine (Nicotine 14 Mg/24 Hr Patch) 14 mg TD QAM MENDY Stop: 06/16/23 14:59 Last Admin: 05/18/23 08:16 Dose: 14 mg Documented By: Admin: 05/17/23 17:42 Dose: 14 mg Documented By: NADIA Pantoprazole Sodium (Pantoprazole 40 Mg Tab) 40 mg PO DAILY MENDY Stop: 06/16/23 08:59 Last Admin: 05/18/23 08:17 Dose: 40 mg Documented By: Admin: 05/17/23 10:05 Dose: 40 mg Documented By: ROXI Umeclidinium [place] (Umeclidinium [place] 62.5mcg/Blister 7 Puffs/Inhaler) 1 puffs INH DAILY MENDY Stop: 06/16/23 08:59 Last Admin: 05/18/23 08:13 Dose: 1 puffs Documented By: Admin: 05/17/23 10:06 Dose: 1 puffs Documented By: ROXI Discontinued Medications Sodium Chloride (Nss) 1,000 mls @ 999 mls/hr IV .Q1H1M MENDY Stop: 05/16/23 23:00 Last Infusion: 05/16/23 23:34 Dose: 0 mls/hr Documented By: Admin: 05/16/23 22:14 Dose: 999 mls/hr Documented By: TRAV Levetiracetam 3,000 mg/ Sodium (Chloride) 280 mls @ 999 mls/hr IV NOW STA Stop: 05/16/23 22:07 Last Infusion: 05/16/23 23:33 Dose: 0 mls/hr Documented By: Admin: 05/16/23 22:09 Dose: 999 mls/hr Documented By: TRAV Sodium Chloride (Nss) 1,000 mls @ 80 mls/hr IV .[id number] MENDY Stop: 05/17/23 14:07 Last Infusion: 05/17/23 14:03 Dose: 0 mls/hr Documented By: Admin: 05/17/23 03:08 Dose: 80 mls/hr Documented By: EJW Imaging Data Radiologist's Impression: Head CT 05/16/23 21:51 Exam(s): CT HEAD Without Contrast EXAM: CT Head Without Intravenous Contrast CLINICAL HISTORY: Reason for exam: seizure. TECHNIQUE: Axial computed tomography images of the head/brain without intravenous contrast. Automated exposure control was utilized for the study. A dose lowering technique was utilized adhering to the principles of ALARA. COMPARISON: No relevant prior studies available. FINDINGS: No acute intracranial hemorrhage. No midline shift or mass effect. The territorial beyer-white matter differentiation is maintained throughout. The ventricles and sulci are commensurate with age. The visualized orbits appear grossly unremarkable. The calvarium is intact. The visualized paranasal sinuses and mastoid air cells are grossly clear. IMPRESSION: No acute intracranial hemorrhage, midline shift, or mass effect. Electronically signed by: Marcello Hightower MD 05/17/23 00:28 AM Chest X-Ray 05/16/23 23:46 SINGLE VIEW CHEST CLINICAL HISTORY: Cough FINDINGS: An AP, portable, upright chest radiograph is compared to study dated 09/15/2022. The cardiomediastinal silhouette is unremarkable. The lungs and pleural spaces are clear. No pneumothorax is seen. The bony thorax is grossly intact. IMPRESSION: No active disease in the chest. ACT 112: Negative or not required by law. Electronically signed by: Ata Campbell M.D. 05/17/2023 6:55 AM Discharge Plan Visit Data Chief Complaint: Neuro Symptoms/Deficit Stated Complaint: ?SEIZURE X3, LEFT SIDED FACIAL DROOP ED Provider: Jeff Gallagher Discharge Problem: Seizures Patient Disposition: Admitted As Inpatient Discharge Instructions Interventions: ED Discharge Assessment Last Done: 05/17/23 01:39
[2023-05-16 22:26] LABS: Basophils # (auto) 0.04 K/uL (0.00-0.20); Basophils % (auto) 0.3 %; Hematocrit (blood only) 48.2 % (37.0-47.0); Hemoglobin 16.3 g/dl (12.0-16.0); Immature Granulocytes # (auto) 0.03 K/uL (0.01-0.20); Immature Granulocytes % (auto) 0.2 %; Lymphocytes % (auto) 22.6 %; Mean Corpuscular Hemoglobin 31.1 pg (25.0-34.0); Mean Corpuscular Hgb Conc 33.8 g/dL (32.0-36.0); Mean Platelet Volume 9.7 fL (9.4-12.4); Monocytes # (auto) 0.84 K/uL (0.11-0.59); Monocytes % (auto) 6.8 %; Neutrophils # (auto) 8.16 K/uL (1.40-6.50); Neutrophils % (auto) 66.1 %; Platelet Count 336 K/uL (130-400); RDW Coefficient of Variation 13.3 % (11.5-14.5); RDW Standard Deviation 45.1 fL (36.4-46.3); Red Blood Count 5.24 M/uL (4.20-5.40); White Blood Count 12.37 K/ul (4.8-10.8)
[2023-05-16 22:43] LABS: Albumin Globulin Ratio 1.4 (0.9-2); Albumin Level 4.9 gm/dl (3.4-5.0); BUN Creatinine Ratio 17.4 (10-20); Bilirubin,Total 0.4 mg/dl (0.2-1.0); Calcium 10.2 mg/dl (8.6-10.3); Creatinine Clr Calc Pharmacy 161.9 ml/min; Est GFR (African American) 138.3 ml/min; Est GFR (Non-African American) 119.3 ml/min; Globulin 3.5 gm/dl (2.5-4.0); Potassium 3.7 mmol/L (3.5-5.1); Total Protein 8.4 gm/dl (6.0-8.3)
[2023-05-17 00:27] LABS: Appearance Urine Clear (Clear); Bilirubin Urine Negative (Negative); Blood Urine Negative (Negative); Color Urine Yellow; Glucose Urine UA Negative (Negative); Ketones Urine Negative (Negative); Leukocyte Esterase Urine Negative (Negative); Nitrite Urine Negative (Negative); Protein Urine Negative (Negative); Specific Gravity Urine 1.012 (1.000-1.030); Urobilinogen Urine Negative (Negative); pH Urine 6.5 (4.5-7.5)
--- NOTE | 2023-05-17 00:29 | CT Scan Report ---
Exam(s): CT HEAD Without Contrast EXAM: CT Head Without Intravenous Contrast CLINICAL HISTORY: Reason for exam: seizure. TECHNIQUE: Axial computed tomography images of the head/brain without intravenous contrast. Automated exposure control was utilized for the study. A dose lowering technique was utilized adhering to the principles of ALARA. COMPARISON: No relevant prior studies available. FINDINGS: No acute intracranial hemorrhage. No midline shift or mass effect. The territorial beyer-white matter differentiation is maintained throughout. The ventricles and sulci are commensurate with age. The visualized orbits appear grossly unremarkable. The calvarium is intact. The visualized paranasal sinuses and mastoid air cells are grossly clear. IMPRESSION: No acute intracranial hemorrhage, midline shift, or mass effect. Electronically signed by: Marcello Hightower MD 05/17/23 00:28 AM
[2023-05-17 00:31] LABS: Pregnancy Test, Urine Negative (Negative)
[2023-05-17 01:00] LABS: Influenza A virus by PCR Negative (Neg); Influenza B virus by PCR Negative (Neg); RSV by PCR Negative (Neg); SARS CoV2 RNA(COVID-19) Ceph NEGATIVE (Negative)
[2023-05-17] MEDS ORDERED: SODIUM CHLORIDE 0.9% 1,000 ML IV SCH (01:38)
[2023-05-17] MEDS ORDERED: ALBUTEROL 0.083% NEBU SOLN 3 ML VIAL NEB PRN (01:38)
[2023-05-17] MEDS ORDERED: NITROGLYCERIN SL 0.4 MG/TAB TAB SL PRN (01:38)
[2023-05-17] MEDS ORDERED: LORazepam 2 MG/1 ML VIAL IV PRN (01:38)
--- NOTE | 2023-05-17 01:49 | History & Physical Report ---
Date of Service May 17, 2023 Assessment & Plan (1) Seizures: Plan: 27-year-old female with past med significant for hypothyroidism, hypertriglyceridemia, metabolic syndrome, hyperlipidemia, bronchopulmonary aspergillosis, severe persistent asthma, history of inappropriate sinus tachycardia, GERD, obesity, B12 deficiency, gastroparesis, overactive bladder, microhematuria, low-grade squamous epithelial lesion on cervical pap smear, restless leg syndrome, history of grand mal seizures, conductive hearing loss of right ear, history of neurocardiogenic syncope, plaque psoriasis, depression, lives at home with her mother was brought in because of seizures. Seizures History of seizures and on Keppra 1500 mg twice daily and Lamictal 250 mg twice daily States last seizure was couple of years ago Received IV Keppra 3 g in the ER We will follow Keppra and Lamictal levels Continue home Keppra and Lamictal for now and IV Ativan as needed for breakthrough seizures Seizure precautions Monitor on telemetry We will follow EEG Consult neurology in a.m. History of CVA with the left lower EXTR weakness As per patient No documentation in epic Not on aspirin and statin States that she is very claustrophobic with MRI she needs to be put down for MRI As some tingliness on the left hand Neurochecks We will monitor Hypothyroidism On Synthyroid We will follow TSH levels History of severe persistent asthma Bronchopulmonary aspergillosis Recently treated for bronchitis On Singulair, inhalers and nebs as needed Supposed to see pulmonary and tomorrow will consult while she is in the hospital History of vitamin B-12 urgency We will follow the levels Right calf tenderness We will follow Dopplers DVT prophylaxis Lovenox for now Disposition telemetry floor Full code History of Present Illness Chief Complaint: Seizures Primary Care Provider: NO PCP 27-year-old female with past med significant for hypothyroidism, hypertriglyceridemia, metabolic syndrome, hyperlipidemia, bronchopulmonary aspergillosis, severe persistent asthma, history of inappropriate sinus tachycardia, GERD, obesity, B12 deficiency, gastroparesis, overactive bladder, microhematuria, low-grade squamous epithelial lesion on cervical pap smear, restless leg syndrome, history of grand mal seizures, conductive hearing loss of right ear, history of neurocardiogenic syncope, plaque psoriasis, depression, lives at home with her mother was brought in because of seizures. As per mother patient was sitting at dinner table and mother noticed that she was just staring and not speaking when she went near her she fell on her chest and she slowly brought her up to the couch and lay her down. At the time she was clenching both arms right arm seem to be relaxing for some time and when EMS came she had 4 episodes of seizures with a few seconds of break in between. During the episode she had urinary incontinence. No biting of the tongue. She was confused until she came to the ER. Currently alert and oriented. In the ER she was given 3 g of IV Keppra. Last seizure was couple of years ago. She has weakness of the left lower extremity from the previous stroke as per patient. She has some tingliness today in the left hand. Denies any chest pain or shortness of breath. Has cough and bringing up brownish phlegm. Recently she was treated for bronchitis with Levaquin. Supposed to see pulmonary tomorrow. Denies any fevers. No headache. No runny nose or sore throat. No nausea. No abdominal pain. Normal bowel and bladder movements. Complaining of right calf tenderness. Says she had blood clot in that leg in the past. Mother is in the room. Past medical history as mentioned above Past surgical history. Colonoscopy. EGD. EGD biopsy. Left-sided bunion removal. Removal of ovarian cyst. Resection of nodule on the right lower leg. Total abdominal hysterectomy with removal of tubes. Tympanostomy tubes. Social history smokes quarter pack a day for 6 years. No alcohol use. No drug use. Family history father had cancer. Diabetes. Mother had diabetes. Epilepsy. Aunt has GERD. Maternal aunt has breast cancer. Maternal great grandmother had breast cancer. Allergies Allergy/AdvReac Type Severity Reaction Status Date / Time hydromorphone Allergy Severe Respirations Verified 05/11/23 09:54 stopped. peanut Allergy Severe ALL Verified 05/11/23 09:54 NUTS-HIVES, SOB amoxicillin Allergy Intermediate Rash Verified 05/11/23 09:54 morphine Allergy Intermediate Hives Verified 05/11/23 09:54 oxycodone Allergy Intermediate Hives Verified 05/11/23 09:54 fish derived Allergy Unknown Unknown Verified 05/11/23 09:54 adhesive AdvReac Mild Rash Verified 05/11/23 09:54 Home Medications Medication Instructions Recorded Confirmed Type Flutter Valve #1 ea 08/24/22 05/11/23 Rx inhalational spacing device #1 ea 08/26/22 05/11/23 Rx Oxygen Home #1 ea 10/25/22 05/11/23 Rx albuterol sulfate 2.5 mg/3 mL 2.5 mg continuous nebulization Q4H 05/17/23 05/17/23 History (0.083 %) solution for nebulization PRN Shortness Of Breath Or Wheezing budesonide-formoterol HFA 160 1 inh inhalation BID 05/17/23 05/17/23 History mcg-4.5 mcg/actuation aerosol inhaler (Symbicort) buspirone 10 mg tablet 10 mg PO BID 05/17/23 05/17/23 History famotidine 20 mg tablet (Pepcid) 20 mg PO DAILY 05/17/23 05/17/23 History lamotrigine 100 mg tablet 50 mg PO BID 05/17/23 05/17/23 History (Lamictal) lamotrigine 200 mg tablet 200 mg PO BID 05/17/23 05/17/23 History (Lamictal) levetiracetam 1,000 mg tablet 1,000 mg PO BID 05/17/23 05/17/23 History (Keppra) levetiracetam 500 mg tablet 500 mg PO BID 05/17/23 05/17/23 History (Keppra) levothyroxine 125 mcg tablet 125 mcg PO DAILY 05/17/23 05/17/23 History montelukast 10 mg tablet 10 mg PO DAILY 05/17/23 05/17/23 History rabeprazole 20 mg tablet,delayed 20 mg PO DAILY 05/17/23 05/17/23 History release tiotropium bromide 1.25 2 puff inhalation DAILY 05/17/23 05/17/23 History mcg/actuation mist for inhalation (Spiriva Respimat) Past Med/Surg History Medical History Abnormal CT scan of lung Acanthosis nigricans, acquired Allergic rhinitis due to animal (cat) (dog) hair and dander Allergic rhinitis due to dust mite Allergic rhinitis due to grass pollen Allergic rhinitis due to mold Allergic rhinitis due to tree pollen Allergic rhinitis due to weed pollen Allergy to cockroaches Anxiety Anxiety Asthma Asthma exacerbation Chronic idiopathic urticaria Chronic rhinitis Current every day smoker Depression Diabetes type 2, controlled Dyslipidemia Epilepsy also absence and pseudoseizures Food sensitivity with gastrointestinal symptoms GERD (gastroesophageal reflux disease) H/O deep venous thrombosis H/O tonic-clonic seizures Heart palpitations Hemorrhage of rectum and anus Hepatomegaly Hypothyroidism Inappropriate sinus tachycardia F/U DR LU[facility]. On Corlanor, which has significantly improved symptoms. Kidney stone HX OAB (overactive bladder) Obesity Ovarian cyst Overactive bladder Peanut allergy Pruritus PTSD (post-traumatic stress disorder) Seizures LAST SEIZURE ~ 08/2019. F/U DR VILLANUEVA NEUROLOGIST [facility]. Most recent OV 03/2020, stable, deemed OK for endoscopy. Severe persistent asthma Tobacco use Surgical History (Updated 05/11/23 @ 10:24 by Suri Faria MD) H/O colonoscopy H/O esophagogastroduodenoscopy H/O foot surgery History of cystoscopy TO REMOVE KIDNEY STONES History of myringotomy Hx of cholecystectomy Nausea and vomiting after administration of anesthetic agent X 1 S/P laparoscopic cholecystectomy S/P laparoscopic hysterectomy TLH-BS S/P removal of ovarian cyst laparoscopic, before hyst Status post Mohs surgery Family History (Updated 05/11/23 @ 10:00 by JACQUELINE Jackson) Mother Family history of diabetes mellitus Grandmother (Maternal) Family history of diabetes mellitus Breast cancer Father Cancer Denies family history of Ovarian cancer Prostate cancer Colorectal cancer Social History Smoking Status: Current every day smoker Tobacco Type: Cigarettes Cigarettes Per Day: 1/2 ppd; Second Hand Exposure: No; Do You Dip or Chew Tobacco: No; Hx Alcohol Use: No Hx Substance Use: No Preferred Language: Cambodian Communication Ability: Effective Bear Keeper Required: No Beliefs That Will Affect Care: None Current Living Situation: Family Current Living Situation Comment: Pt lives at home with her father, Mario Feels Safe at Home: Yes Assistive Devices: None Review of Systems Review of Systems: All systems reviewed & are unremarkable except as noted in HPI & below Physical Exam Physical Exam: General- Not in distress Head- atraumatic Eyes- PERRL. ENT- oropharynx clear Neck- supple, no JVD. Lungs- clear to auscultation No wheezing or crackles. Heart- regular rhythm; no murmur, no gallop. Abdomen- normal bowel sounds, soft, nontender, no distension. Extremities- right calf slightly swollen and tender on palpation. Neuro- alert, oriented x 3; PERRL,; no facial palsy; no dysarthria; power 5/5 in all extremities except left lower extremity 2/5. No pronator drift. sensations and position sense intact. Skin- warm & dry Results & Data Results & Data Vital Signs (Past 12 Hours) Vital Signs Temp Pulse Pulse Resp BP BP Pulse Ox 05/16/23 23:00 99 H 18 132/89 100 05/16/23 22:30 104 H 28 H 124/70 100 05/16/23 22:04 111 H 05/16/23 21:51 37.2 C 103 H 22 122/76 100 05/16/23 21:51 05/16/23 21:51 37.2 C 100 H 18 115/79 98 O2 Del Method O2 Flow Rate 05/16/23 23:00 05/16/23 22:30 05/16/23 22:04 05/16/23 21:51 Room Air 05/16/23 21:51 Room Air 100 05/16/23 21:51 Room Air Code Status & VTE Plan VTE Prophylaxis Plan VTE Prophylaxis will be ordered: Yes
[2023-05-17 05:43] LABS: Basophils # (auto) 0.03 K/uL (0.00-0.20); Basophils % (auto) 0.3 %; Eosinophils # (auto) 0.57 K/uL (0.00-0.50); Eosinophils % (auto) 5.2 %; Hematocrit (blood only) 40.1 % (37.0-47.0); Hemoglobin 14.1 g/dl (12.0-16.0); Immature Granulocytes # (auto) 0.03 K/uL (0.01-0.20); Immature Granulocytes % (auto) 0.3 %; Lymphocytes # (auto) 3.01 K/uL (1.20-3.40); Lymphocytes % (auto) 27.4 %; Mean Corpuscular Hemoglobin 32.2 pg (25.0-34.0); Mean Corpuscular Hgb Conc 35.2 g/dL (32.0-36.0); Mean Corpuscular Volume 91.6 fL (80.0-100.0); Mean Platelet Volume 9.9 fL (9.4-12.4); Monocytes # (auto) 0.92 K/uL (0.11-0.59); Monocytes % (auto) 8.4 %; Neutrophils # (auto) 6.41 K/uL (1.40-6.50); Neutrophils % (auto) 58.4 %; Platelet Count 313 K/uL (130-400); RDW Coefficient of Variation 13.2 % (11.5-14.5); RDW Standard Deviation 44.9 fL (36.4-46.3); Red Blood Count 4.38 M/uL (4.20-5.40); White Blood Count 10.97 K/ul (4.8-10.8)
[2023-05-17 05:44] LABS: BUN Creatinine Ratio 19.7 (10-20); Calcium 8.6 mg/dl (8.6-10.3); Creatinine Clr Calc Pharmacy 183.1 ml/min; Est GFR (Non-African American) 124.2 ml/min; Magnesium 1.9 mg/dl (1.7-2.4); Potassium 3.9 mmol/L (3.5-5.1)
--- NOTE | 2023-05-17 05:59 | Ultrasound Report ---
ULTRASOUND RIGHT LOWER EXTREMITY VENOUS CLINICAL HISTORY: Right calf pain. COMPARISON STUDY: No priors. TECHNIQUE: Real-time, grayscale, and color Doppler sonography of the deep veins of the right lower ex tremity was performed from the inguinal crease to the calf. Compression and augmentation were utilize d. FINDINGS: There is no sonographic evidence of deep venous thrombosis identified in the right lower ex tremity. The common femoral, superficial femoral, and popliteal veins are patent and normally mita sible. The greater saphenous vein and the profunda femoris vein at the junction with the common femor al vein are clear. The visualized calf veins are patent. IMPRESSION: There is no sonographic evidence of deep venous thrombosis identified in the right lower extremity. ACT 112: Negative or not required by law. Electronically signed by: Ata Campbell M.D. 05/17/2023 5:57 AM
--- NOTE | 2023-05-17 06:57 | XRay Report ---
SINGLE VIEW CHEST CLINICAL HISTORY: Cough FINDINGS: An AP, portable, upright chest radiograph is compared to study dated 09/15/2022. The cardiome diastinal silhouette is unremarkable. The lungs and pleural spaces are clear. No pneumothorax is seen . The bony thorax is grossly intact. IMPRESSION: No active disease in the chest. ACT 112: Negative or not required by law. Electronically signed by: Ata Campbell M.D. 05/17/2023 6:55 AM
--- NOTE | 2023-05-17 07:46 | Pulmonary Consultation ---
Date of Consultation May 17, 2023 Assessment & Plan (1) ABPA (allergic bronchopulmonary aspergillosis): (2) Severe persistent asthma: (3) Elevated IgE level: (4) Obesity: (5) Seizures: (6) Nocturnal hypoxia: (7) Tobacco use: Plan Chest x-ray 05-16-23: Portable film, good inspiratory effort, bilateral costophrenic and cardiophrenic angles are clean, no clear lung infiltrate appreciated --Asthma Severe persistent With significant component of atopy, history of nasal polyps. Able to take NSAIDs [id number] without any issues Patient has cats as well as dogs at home. She is allergic to both COVID-19, influenza A/B, RSV negative on 06/13/2023 At home on Symbicort 160-4.5 mcg, 1 puff twice a dayalong with as needed albuterol Patient is allergic to almost everything on the Rast panel, as well asfumigatus IgE and IgG is positive Bronchoscopy 09/15/2022 was negative for any microorganisms. Cytology was also negative. AEC 570 on 05/17/2023, has been as high as 1000 11/24/2017 IgE 203805/27/2022 --> 1525 on 11/15/2022 2D echo 05/27/2022: EF 60-65%, RV normal in size and function PFT 09/27/2022ersonally reviewed: No obstructive lung dysfunction, insignificant bronchodilator response, normal TLC with moderate decrease in ERV, normal DLCO FVC 4.26 L 99%, FEV1 3.40 L 93%, FEV1/FVC 80%, RV 113%, TLC 83%, RV/TLC 115%, DLCO 104% -- Bronchopulmonary aspergillosis s/p treatment Patient was started on treatment with prednisone, itraconazole and Bactrim September 2022 Patient finished prednisone and Bactrim mid November 2022 Completed itraconazole for total of 4 months, mid January 2023 QTc 450 on 12/13/2022 Patient will have LFTs done every month while patient is on itraconazole Repeat IgE q2 months till 09/2023 Biologic such as benralizumab can still be used in such cases, I will consider starting that as well based on her response -- Nocturnal hypoxia Polysomnography 10/22/2022:AHI 3.9, nocturnal hypoxia Continue with nocturnal oxygen 2 L Nocturnal oximetry 11/08/2022on 2 L showed desaturation less than 88% for less than 5 minutes. Patient also gives history of restless leg Ferritin 67, transferrin saturation 26 For patients with iron deficiency or low-normal ferritin levels (ie, serum ferritin <75 ng/mL), iron repletion therapy suggested. Advised patient to take bkhn-anf-nrovved iron supplements --Current smoker 5-pack-year smoking history Ports of quitting explained the patient in depth -- Obesity Advised to lose with diet and exercise Plan: Chest x-ray does not show any signs of pneumonia. She had a bout of bronchitis for which she was given levofloxacin. Levofloxacin is associated with decreasing the threshold of seizures. I would recommend keeping her off of fluoroquinolones in the near future. IgE level to be done tomorrow No need for steroids. For the time being I would recommend her to go and use Symbicort at home 2 puffs twice a day and then gradually go down to 1 puff twice a day. Mucinex to help with chest action. No need for antibiotics right now as she just finished a course of levofloxacin Please note the above document was generated using voice recognition software. It may contain grammatical, syntax or spelling errors.Any formal questions or concerns about the content, text or information contained within the body of this dictation should be directly addressed to the provider for clarification. History of Present Illness Attending Physician: Leonie Mitchell MD History of Present Illness 27-year-old female was admitted to the hospital because of seizures like activity back at home Past medical history: GERD, history of seizures, hypothyroidism, anxiety/depression Patient was last seen by me on 08/24/2022 At the time of examination patient was saturating 97% on room air. She was not in any respiratory distress She stated that she is feeling better after getting antibiotics which she fin ished on Tuesday05/13/2023 She is still complaining of some chest tightness and bringing up phlegm which is green in color. Denies any hemoptysis Currently patient is using Symbicort 160-4.5 mg 1 puff twice a day She is compliant with her seizure medications No diarrhea, no abdominal pain. No dysuria. Denies any headache No fever or chills No night sweats, no unintentional weight loss No headache, no blurry vision. Denies any history of nasal polyps Able to take [id number] NSAIDs without any issues Social history: 5-pack-year smoking history, currently smoking half a pack a day. No alcohol, denies any illicit drug use. Is disabled Pets:Has dogs and cats at home. She is allergic to both.No birds or poultry nearby, did not grow up on a farm Allergies: Seasonal. Asthma: Family history of asthma in uncle Lung cancer: No history of lung cancer in the family Allergies Allergy/AdvReac Type Severity Reaction Status Date / Time hydromorphone Allergy Severe Respirations Verified 05/11/23 09:54 stopped. peanut Allergy Severe ALL Verified 05/11/23 09:54 NUTS-HIVES, SOB amoxicillin Allergy Intermediate Rash Verified 05/11/23 09:54 morphine Allergy Intermediate Hives Verified 05/11/23 09:54 oxycodone Allergy Intermediate Hives Verified 05/11/23 09:54 fish derived Allergy Unknown Unknown Verified 05/11/23 09:54 levofloxacin AdvReac Severe Seizure Verified 05/17/23 10:07 adhesive AdvReac Mild Rash Verified 05/11/23 09:54 Home Medications Medication Instructions Recorded Confirmed Type Flutter Valve #1 ea 08/24/22 05/11/23 Rx inhalational spacing device #1 ea 08/26/22 05/11/23 Rx Oxygen Home #1 ea 10/25/22 05/11/23 Rx albuterol sulfate 2.5 mg/3 mL 2.5 mg continuous nebulization Q4H 05/17/23 05/17/23 History (0.083 %) solution for nebulization PRN Shortness Of Breath Or Wheezing budesonide-formoterol HFA 160 1 inh inhalation BID 05/17/23 05/17/23 History mcg-4.5 mcg/actuation aerosol inhaler (Symbicort) buspirone 10 mg tablet 10 mg PO BID 05/17/23 05/17/23 History famotidine 20 mg tablet (Pepcid) 20 mg PO DAILY 05/17/23 05/17/23 History lamotrigine 100 mg tablet 50 mg PO BID 05/17/23 05/17/23 History (Lamictal) lamotrigine 200 mg tablet 200 mg PO BID 05/17/23 05/17/23 History (Lamictal) levetiracetam 1,000 mg tablet 1,000 mg PO BID 05/17/23 05/17/23 History (Keppra) levetiracetam 500 mg tablet 500 mg PO BID 05/17/23 05/17/23 History (Keppra) levothyroxine 125 mcg tablet 125 mcg PO DAILY 05/17/23 05/17/23 History montelukast 10 mg tablet 10 mg PO DAILY 05/17/23 05/17/23 History rabeprazole 20 mg tablet,delayed 20 mg PO DAILY 05/17/23 05/17/23 History release tiotropium bromide 1.25 2 puff inhalation DAILY 05/17/23 05/17/23 History mcg/actuation mist for inhalation (Spiriva Respimat) Patient History Medical History Abnormal CT scan of lung Acanthosis nigricans, acquired Allergic rhinitis due to animal (cat) (dog) hair and dander Allergic rhinitis due to dust mite Allergic rhinitis due to grass pollen Allergic rhinitis due to mold Allergic rhinitis due to tree pollen Allergic rhinitis due to weed pollen Allergy to cockroaches Anxiety Anxiety Asthma Asthma exacerbation Chronic idiopathic urticaria Chronic rhinitis Current every day smoker Depression Diabetes type 2, controlled Dyslipidemia Epilepsy also absence and pseudoseizures Food sensitivity with gastrointestinal symptoms GERD (gastroesophageal reflux disease) H/O deep venous thrombosis H/O tonic-clonic seizures Heart palpitations Hemorrhage of rectum and anus Hepatomegaly Hypothyroidism Inappropriate sinus tachy[facility] Corlanor, which has significantly improved symptoms. Kidney stone HX OAB (overactive bladder) Obesity Ovarian cyst Overactive bladder Peanut allergy Pruritus PTSD (post-traumatic stress disorder) Seizures LAST SEIZURE ~ 08/2019. F/U DR VILLANUEVA NEUROLOGIST [facility]. Most recent OV 03/2020, stable, deemed OK for endoscopy. Severe persistent asthma Tobacco use Surgical History (Updated 05/11/23 @ 10:24 by Suri Faria MD) H/O colonoscopy H/O esophagogastroduodenoscopy H/O foot surgery History of cystoscopy TO REMOVE KIDNEY STONES History of myringotomy Hx of cholecystectomy Nausea and vomiting after administration of anesthetic agent X 1 S/P laparoscopic cholecystectomy S/P laparoscopic hysterectomy TLH-BS S/P removal of ovarian cyst laparoscopic, before hyst Status post Mohs surgery Family History (Updated 05/11/23 @ 10:00 by JACQUELINE Jackson) Mother Family history of diabetes mellitus Grandmother (Maternal) Family history of diabetes mellitus Breast cancer Father Cancer Denies family history of Ovarian cancer Prostate cancer Colorectal cancer Social History Smoking Status: Current every day smoker Tobacco Type: Cigarettes Cigarettes Per Day: 1/2 ppd; Second Hand Exposure: No; Do You Dip or Chew Tobacco: No; Hx Alcohol Use: No Hx Substance Use: No Preferred Language: Tongan Communication Ability: Effective Meeting Manager Required: No Beliefs That Will Affect Care: None Current Living Situation: Family Current Living Situation Comment: Pt lives at home with her father, Mario Feels Safe at Home: Yes Assistive Devices: None Review of Systems Review of Systems: All systems reviewed & are unremarkable except as noted in HPI & below Physical Exam Physical Exam: Constitutional: No acute distress HEENT: EOMI, PERRLA Respiratory system: Decreased air entry bilaterally, no wheeze, no rhonchi, no crackles CVS: S1-S2 positive, no murmurs or gallops Abdomen: Soft, nontender, nondistended, positive bowel sounds x4, obese Extremities: +2 pulses bilaterally radialis/ dorsalis pedis, no cyanosis, no edema Neuro: Awake alert oriented x3 Psych: Normal mood and affect G/U: No Lobo Skin: no rashes, warm and dry Lymphatic: no cervical or axillary lymphadenopathy Results & Data Results & Data Vital Signs (Past 12 Hours) Vital Signs Temp Pulse Pulse Resp BP BP Pulse Ox 05/17/23 05:30 90 20 115/70 94 05/17/23 03:22 98 H 17 126/81 94 05/17/23 02:01 100 H 05/16/23 23:00 99 H 18 132/89 100 05/16/23 22:30 104 H 28 H 124/70 100 05/16/23 22:04 111 H 05/16/23 21:51 37.2 C 103 H 22 122/76 100 05/16/23 21:51 05/16/23 21:51 37.2 C 100 H 18 115/79 98 O2 Del Method O2 Flow Rate 05/17/23 05:30 Room Air 05/17/23 03:22 Room Air 05/17/23 02:01 05/16/23 23:00 05/16/23 22:30 05/16/23 22:04 05/16/23 21:51 Room Air 05/16/23 21:51 Room Air 100 05/16/23 21:51 Room Air Laboratory Results 05/17/23 05:00 05/17/23 05:00 PG Care Time/CCT Total # of Minutes Spent Total Time Spent with Patient: Total time spent is greater than 50% in coordination of care (as documented) at patient's floor/unit and/or counseling patient: Coding Level of Care Code 17655 INT INP/OBS CARE 3/75MIN Diagnoses ABPA (allergic bronchopulmonary aspergillosis) B44.81 Severe persistent asthma J45.50 Elevated IgE level R76.8 Obesity E66.9 Seizures R56.9 Nocturnal hypoxia G47.34 Tobacco use Z72.0
[2023-05-17] MEDS: LEVOTHYROXINE SODIUM 125 MCG TABLET PO SCH (08:20)
[2023-05-17] MEDS ORDERED: levETIRAcetam 500 MG TAB PO SCH (09:00)
[2023-05-17] MEDS: levETIRAcetam 500 MG TAB PO SCH ×2 (10:03→20:44)
[2023-05-17] MEDS: ENOXAPARIN INJ 40 MG/0.4 ML SYR SQ SCH (10:04)
[2023-05-17] MEDS: lamoTRIgine 100 MG TAB PO SCH ×2 (10:04→20:42)
[2023-05-17] MEDS: busPIRone 5 MG TAB PO SCH ×2 (10:04→20:43)
[2023-05-17] MEDS: lamoTRIgine 25 MG TAB PO SCH ×2 (10:05→20:43)
[2023-05-17] MEDS: FLUTICASONE/VILANTEROL 200/25MCG 14 PUFFS/INHALER INH SCH (10:05)
[2023-05-17] MEDS: FAMOTIDINE 20 MG TAB PO SCH (10:05)
[2023-05-17] MEDS: MONTELUKAST SODIUM 10 MG TABLET PO SCH (10:05)
[2023-05-17] MEDS: PANTOprazole 40 MG TAB PO SCH (10:05)
[2023-05-17] MEDS: UMECLIDINIUM BROMIDE 62.5MCG/BLISTER 7 PUFFS/INHALER INH SCH (10:06)
--- NOTE | 2023-05-17 10:49 | Electrocardiogram Report ---
Test Reason : Blood Pressure : / mmHG Vent. Rate : 102 BPM Atrial Rate : 102 BPM P-R Int : 156 ms QRS Dur : 084 ms QT Int : 370 ms P-R-T Axes : 068 076 071 degrees QTc Int : 482 ms Sinus tachycardia Otherwise normal ECG When compared with ECG of 05-OCT-2022 08:58, No significant change was found Confirmed by Madhu Washington ([id number]) on 05/17/2023 10:49:09 AM Referred By: REFERRED SELF Confirmed By:Severo Washington
--- NOTE | 2023-05-17 12:00 | Neurology Consultation ---
Date of Consultation May 17, 2023 Assessment & Plan (1) Seizures: Plan 27 y/o female with history of hypothyroidism, seizures, and PNES that presented following possible breakthrough seizures in the setting of recent sleep deprivation. Unclear etiology of pt's reported left sided weakness. CTH with no indication of prior infarcts. As there are limitations to the examination over the video, and the pt may benefit from an in person evaluation in the future and possible EMG/NCV should further imaging be negative and symptoms persist. As breakthrough seizure occurred in the setting of recent sleep deprivation and there have been no further events, would continue home doses of keppra and lamictal for now. 1. MRI brain if able. If not able to obtain MRI, repeat CTH on tomorrow 2. Continue keppra 1500 mg bid and lamictal 250 mg bid. 3. Keppra and lamictal levels pending 4. Outpatient MRI L spine 5. Seizure precautions 6. No driving 7. Outpatient sleep medicine f/u 8. PT/OT Telehealth Consultation Telehealth Information Telehealth Information: I performed this visit using a real-time telehealth connection between my location and the patients location ([facility]). After connecting through interactive tele-video, patient was identified by name and date of and/or wristband check.Patient (or authorized healthcare education courses sales representative) was informed that this was a telemedicine visit and it was being conducted confidentially over secure lines. My office door was closed and no one else was present in the room with me.Patient (or authorized healthcare education courses sales representative) provided consent to proceed with the visit, expressed an understanding of privacy and security of the telemedicine visit, and gave permission to have a hospital education courses sales representative in the room in order to assist with the visit and to conduct portions of the visit, as needed. I informed the patient (or authorized healthcare education courses sales representative) that I reviewed their record and presented the opportunity for them to ask any questions regarding the visit today. The patient agreed to participate. History of Present Illness Reason for Consultation: seizure Requesting Physician: Dr. Gualberto Reyes Attending Physician: Leonie Mitchell MD History of Present Illness 27 y/o female with history of hypothyroidism, seizures, and PNES that presents following a possible seizure. She states that her mother told her that the last thing she remembers is sitting at the kitchen table but then does not remember anything until she arrived in the emergency department. Reportedly, she was sitting at the kitchen table when she began staring off and then fell on her mother's chest. Her mother then took her to the couch and she was observed to have clenching of left upper extremity. She reportedly had incontinence during this event but no tongue biting. There was also concern that she may have had multiple events and a left facial droop. She received keppra 3 g IV load in the ED. She states that she takes keppra 1500 mg bid and lamictal 250 mg bid for seizures. She denies any missed doses. She sleeps with nocturnal oxygen, and she reports poor sleep over the weekend, sleeping only two to three hours because of discomfort. She states that her family physician started her on levofloxacin for a sinus infection but this was stopped per the patient a couple weeks ago. Her last seizure before yesterday was in August 2019. She reports that she has had left sided weakness since she began having mini strokes, but that it is significantly worsened on today, with an inability to open her hand. She also reports a recent history of frequently dropping objects from the left hand and states that for the last two years she has had low back pain that radiates into her left leg. Allergies Allergy/AdvReac Type Severity Reaction Status Date / Time hydromorphone Allergy Severe Respirations Verified 05/11/23 09:54 stopped. peanut Allergy Severe ALL Verified 05/11/23 09:54 NUTS-HIVES, SOB amoxicillin Allergy Intermediate Rash Verified 05/11/23 09:54 morphine Allergy Intermediate Hives Verified 05/11/23 09:54 oxycodone Allergy Intermediate Hives Verified 05/11/23 09:54 fish derived Allergy Unknown Unknown Verified 05/11/23 09:54 levofloxacin AdvReac Severe Seizure Verified 05/17/23 10:07 adhesive AdvReac Mild Rash Verified 05/11/23 09:54 Home Medications Medication Instructions Recorded Confirmed Type Flutter Valve #1 ea 08/24/22 05/11/23 Rx inhalational spacing device #1 ea 08/26/22 05/11/23 Rx Oxygen Home #1 ea 10/25/22 05/11/23 Rx albuterol sulfate 2.5 mg/3 mL 2.5 mg continuous nebulization Q4H 05/17/23 05/17/23 History (0.083 %) solution for nebulization PRN Shortness Of Breath Or Wheezing budesonide-formoterol HFA 160 1 inh inhalation BID 05/17/23 05/17/23 History mcg-4.5 mcg/actuation aerosol inhaler (Symbicort) buspirone 10 mg tablet 10 mg PO BID 05/17/23 05/17/23 History famotidine 20 mg tablet (Pepcid) 20 mg PO DAILY 05/17/23 05/17/23 History lamotrigine 100 mg tablet 50 mg PO BID 05/17/23 05/17/23 History (Lamictal) lamotrigine 200 mg tablet 200 mg PO BID 05/17/23 05/17/23 History (Lamictal) levetiracetam 1,000 mg tablet 1,000 mg PO BID 05/17/23 05/17/23 History (Keppra) levetiracetam 500 mg tablet 500 mg PO BID 05/17/23 05/17/23 History (Keppra) levothyroxine 125 mcg tablet 125 mcg PO DAILY 05/17/23 05/17/23 History montelukast 10 mg tablet 10 mg PO DAILY 05/17/23 05/17/23 History rabeprazole 20 mg tablet,delayed 20 mg PO DAILY 05/17/23 05/17/23 History release tiotropium bromide 1.25 2 puff inhalation DAILY 05/17/23 05/17/23 History mcg/actuation mist for inhalation (Spiriva Respimat) Patient History Medical History Abnormal CT scan of lung Acanthosis nigricans, acquired Allergic rhinitis due to animal (cat) (dog) hair and dander Allergic rhinitis due to dust mite Allergic rhinitis due to grass pollen Allergic rhinitis due to mold Allergic rhinitis due to tree pollen Allergic rhinitis due to weed pollen Allergy to cockroaches Anxiety Anxiety Asthma Asthma exacerbation Chronic idiopathic urticaria Chronic rhinitis Current every day smoker Depression Diabetes type 2, controlled Dyslipidemia Epilepsy also absence and pseudoseizures Food sensitivity with gastrointestinal symptoms GERD (gastroesophageal reflux disease) H/O deep venous thrombosis H/O tonic-clonic seizures Heart palpitations Hemorrhage of rectum and anus Hepatomegaly Hypothyroidism Inappropriate sinus tachycardia F/U [facility] LUO [facility]. On Corlanor, which has significantly improved symptoms. Kidney stone HX OAB (overactive bladder) Obesity Ovarian cyst Overactive bladder Peanut allergy Pruritus PTSD (post-traumatic stress disorder) Seizures LAST SEIZURE ~ 08/2019. F/U DR VILLANUEVA [facility]. Most recent OV 03/2020, stable, deemed OK for endoscopy. Severe persistent asthma Tobacco use Surgical History (Updated 05/11/23 @ 10:24 by Suri Faria MD) H/O colonoscopy H/O esophagogastroduodenoscopy H/O foot surgery History of cystoscopy TO REMOVE KIDNEY STONES History of myringotomy Hx of cholecystectomy Nausea and vomiting after administration of anesthetic agent X 1 S/P laparoscopic cholecystectomy S/P laparoscopic hysterectomy TLH-BS S/P removal of ovarian cyst laparoscopic, before hyst Status post Mohs surgery Family History (Updated 05/11/23 @ 10:00 by JACQUELINE Jackson) Mother Family history of diabetes mellitus Grandmother (Maternal) Family history of diabetes mellitus Breast cancer Father Cancer Denies family history of Ovarian cancer Prostate cancer Colorectal cancer Social History Smoking Status: Current every day smoker Tobacco Type: Cigarettes Cigarettes Per Day: 1/2 ppd; Second Hand Exposure: No; Do You Dip or Chew Tobacco: No; Hx Alcohol Use: No Hx Substance Use: No Preferred Language: [place] Citizen Communication Ability: Effective Piece 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 Initially able to abduct/flex fingers with FTN but unable to do so during motor testing. tiller and mini tiller slowed but with no fixation Sensation: Intact to ligh touch throughout Cerebellar: FTN intact Results & Data Vital Signs (Past 12 Hours) Vital Signs Pulse Pulse Resp BP Pulse Ox O2 Del Method 05/17/23 05:30 90 20 115/70 94 Room Air 05/17/23 03:22 98 H 17 126/81 94 Room Air 05/17/23 02:01 100 H Laboratory Results WBC 10.97, HGB 14.1, HCT 40.1, Plt 313, Na 136, Creatinine 0.61. glucose 92, Na 136, TSH 3.182, B12 731, Urine nitrite negative, le negative, SARS COV 2 negative, influenza type B negative, RSV negative Diagnostic Findings CTH: No acute intracranial hemorrhage, midline shift, or mass effect.
[2023-05-17] MEDS: ACETAMINOPHEN 325 MG TAB PO PRN (14:22)
--- NOTE | 2023-05-17 15:12 | Communication Note ---
Date of Service: May 17, 2023 Ms. 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 Talked to mother on phone: reportedly patient was watching TV with mother when eyes began to flicker and patient fell forward despite mother's attempts to orient. During this episode, patient was noted to have left facial droop with contraction of left hand. This was similar stroke presentation previously. Mother did note that facial droop and hand contraction resolved upon arrival of EMS. S:Patient feels better but "groggy." Preoccupied with meal difference from ED v floors and requesting better options. Discussed thoughts on rehab as course progress, and patient states she wishes to stay home and see if home services are covered rather than pursue any inpatient/snf options. Patient also mentions bladder incontinence with sneezing, but does not that she wets the bed in the evening without noticing--she reports completed pelvic floor training and being told her "bladder is weak from too many seizures." Patient denies any current chest pain, palpitations, or other concerns. 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 No encephalomalacia or signs of old infarct noted on CT No documentation in epic; Not on aspirin and statin States that she is very claustrophobic with MRI she needs to be put down for MRI Further evaluation per Neurology Will need anxiolytic if MRI pursued #Hypothyroidism Continue home synthroid, TSH wnl #severe persistent asthma #Bronchopulmonary aspergillosis Recently treated for bronchitis On Singulair, inhalers and nebs as needed Pulm on consult -Add Mucinex and IgE level in am #History of vitamin B-12 deficiency Level wNL #Right calf tenderness doppler negative DVT prophylaxis Lovenox for now
[2023-05-17] MEDS: NICOTINE 14 MG/24 HR PATCH TD SCH (17:42)
[2023-05-17] MEDS: guaiFENesin 600 MG TABCR PO SCH (20:41)
[2023-05-18] MEDS: LEVOTHYROXINE SODIUM 125 MCG TABLET PO SCH (05:59)
[2023-05-18 06:24] LABS: Hematocrit (blood only) 40.1 % (37.0-47.0); Hemoglobin 13.6 g/dl (12.0-16.0); Mean Corpuscular Hemoglobin 31.3 pg (25.0-34.0); Mean Corpuscular Hgb Conc 33.9 g/dL (32.0-36.0); Mean Corpuscular Volume 92.4 fL (80.0-100.0); Mean Platelet Volume 9.7 fL (9.4-12.4); Platelet Count 277 K/uL (130-400); RDW Coefficient of Variation 13.2 % (11.5-14.5); RDW Standard Deviation 44.7 fL (36.4-46.3); Red Blood Count 4.34 M/uL (4.20-5.40); White Blood Count 9.24 K/ul (4.8-10.8)
--- NOTE | 2023-05-18 06:30 | Electroencephalogram ---
EEG Procedure Note Date of Service May 18, 2023 Start / End Times Start Time: 10:28 End Time: 10:[address] Reyes History A 27 year old female with history of epilepsy. EEG performed for evaluation of epileptiform activity. Home Medication List Medication Instructions Recorded Confirmed Type Flutter Valve #1 ea 08/24/22 05/11/23 Rx inhalational spacing device #1 ea 08/26/22 05/11/23 Rx Oxygen Home #1 ea 10/25/22 05/11/23 Rx albuterol sulfate 2.5 mg/3 mL 2.5 mg continuous nebulization Q4H 05/17/23 05/17/23 History (0.083 %) solution for nebulization PRN Shortness Of Breath Or Wheezing budesonide-formoterol HFA 160 1 inh inhalation BID 05/17/23 05/17/23 History mcg-4.5 mcg/actuation aerosol inhaler (Symbicort) buspirone 10 mg tablet 10 mg PO BID 05/17/23 05/17/23 History famotidine 20 mg tablet (Pepcid) 20 mg PO DAILY 05/17/23 05/17/23 History lamotrigine 100 mg tablet 50 mg PO BID 05/17/23 05/17/23 History (Lamictal) lamotrigine 200 mg tablet 200 mg PO BID 05/17/23 05/17/23 History (Lamictal) levetiracetam 1,000 mg tablet 1,000 mg PO BID 05/17/23 05/17/23 History (Keppra) levetiracetam 500 mg tablet 500 mg PO BID 05/17/23 05/17/23 History (Keppra) levothyroxine 125 mcg tablet 125 mcg PO DAILY 05/17/23 05/17/23 History montelukast 10 mg tablet 10 mg PO DAILY 05/17/23 05/17/23 History rabeprazole 20 mg tablet,delayed 20 mg PO DAILY 05/17/23 05/17/23 History release tiotropium bromide 1.25 2 puff inhalation DAILY 05/17/23 05/17/23 History mcg/actuation mist for inhalation (Spiriva Respimat) Inpatient Medication List Acetaminophen (Acetaminophen 325 Mg Tab) 650 mg PO Q4H PRN PRN Reason: Pain or Fever Stop: 06/16/23 01:37 Last Admin: 05/17/23 14:22 Dose: 650 mg Documented By: NADIA Buspirone HCl (Buspirone 5 Mg Tab) 10 mg PO BID MENDY Stop: 06/16/23 08:59 Last Admin: 05/17/23 20:43 Dose: 10 mg Documented By: Admin: 05/17/23 10:04 Dose: 10 mg Documented By: ROXI Enoxaparin Sodium (Enoxaparin Inj 40 Mg/0.4 Ml Syr) 40 mg SQ Q24H MENDY Stop: 06/16/23 08:59 Last Admin: 05/17/23 10:04 Dose: 40 mg Documented By: ROXI Famotidine (Famotidine 20 Mg Tab) 20 mg PO DAILY MENDY Stop: 06/16/23 08:59 Last Admin: 05/17/23 10:05 Dose: 20 mg Documented By: ROXI Fluticasone/Vilanterol (Fluticasone/Vilanterol 200/25mcg 14 Puffs/Inhaler) 1 puffs INH DAILY MENDY Stop: 06/16/23 08:59 Last Admin: 05/17/23 10:05 Dose: 1 puffs Documented By: ROXI Guaifenesin (Guaifenesin 600 Mg Tabcr) 600 mg PO Q12 MENDY Stop: 06/16/23 20:59 Last Admin: 05/17/23 20:41 Dose: 600 mg Documented By: YANA Lamotrigine (Lamotrigine 100 Mg Tab) 200 mg PO BID MENDY Stop: 06/16/23 08:59 Last Admin: 05/17/23 20:42 Dose: 200 mg Documented By: Admin: 05/17/23 10:04 Dose: 200 mg Documented By: ROXI Lamotrigine (Lamotrigine 25 Mg Tab) 50 mg PO BID MENDY Stop: 06/16/23 08:59 Last Admin: 05/17/23 20:43 Dose: 50 mg Documented By: Admin: 05/17/23 10:05 Dose: 50 mg Documented By: ROXI Levetiracetam (Levetiracetam 500 Mg Tab) 1,500 mg PO BID MENDY Stop: 06/16/23 08:59 Last Admin: 05/17/23 20:44 Dose: 1,500 mg Documented By: Admin: 05/17/23 10:03 Dose: 1,500 mg Documented By: ROXI Levothyroxine Sodium (Levothyroxine Sodium 125 Mcg Tablet) 125 mcg PO DAILYBB [facility] Stop: 06/16/23 06:29 Last Admin: 05/18/23 05:59 Dose: 125 mcg Documented By: Admin: 05/17/23 08:20 Dose: 125 mcg Documented By: ROXI Montelukast Sodium (Montelukast Sodium 10 Mg Tablet) 10 mg PO DAILY MENDY Stop: 06/16/23 08:59 Last Admin: 05/17/23 10:05 Dose: 10 mg Documented By: ROXI Nicotine (Nicotine 14 Mg/24 Hr Patch) 14 mg TD QAM MENDY Stop: 06/16/23 14:59 Last Admin: 05/17/23 17:42 Dose: 14 mg Documented By: NADIA Pantoprazole Sodium (Pantoprazole 40 Mg Tab) 40 mg PO DAILY MENDY Stop: 06/16/23 08:59 Last Admin: 05/17/23 10:05 Dose: 40 mg Documented By: ROXI Umeclidinium [place] (Umeclidinium [place] 62.5mcg/Blister 7 Puffs/Inhaler) 1 puffs INH DAILY MENDY Stop: 06/16/23 08:59 Last Admin: 05/17/23 10:06 Dose: 1 puffs Documented By: ROXI Discontinued Medications Sodium Chloride (Nss) 1,000 mls @ 999 mls/hr IV .Q1H1M MENDY Stop: 05/16/23 23:00 Last Infusion: 05/16/23 23:34 Dose: 0 mls/hr Documented By: Admin: 05/16/23 22:14 Dose: 999 mls/hr Documented By: TRAV Levetiracetam 3,000 mg/ Sodium (Chloride) 280 mls @ 999 mls/hr IV NOW STA Stop: 05/16/23 22:07 Last Infusion: 05/16/23 23:33 Dose: 0 mls/hr Documented By: Admin: 05/16/23 22:09 Dose: 999 mls/hr Documented By: TRAV Sodium Chloride (Nss) 1,000 mls @ 80 mls/hr IV .[id number] MENDY Stop: 05/17/23 14:07 Last Infusion: 05/17/23 14:03 Dose: 0 mls/hr Documented By: Admin: 05/17/23 03:08 Dose: 80 mls/hr Documented By: TRAV Description This is a 21 electrode EEG with a single channel dedicated to limited EKG. The electrodes were placed in accordance with the International 10-20 system. REPORT: At the onset of the EEG, the patient is awake. The background activity consist of 10-11 Hz, persistent, posteriorly dominant, moderate amplitude, symmetric and rhythmic activity that is reactive to eye opening. Anteriorly, it consist of a mixture of low voltage indeterminate activity and 15-25 Hz, persistent, low amplitude, symmetric and rhythmic activity. Stepwise intermittent photic stimulation (1-21 Hz) and hyperventilation (3 minutes, good effort) do not induce any abnormalities. Drowsiness is characterized by low amplitude mixed frequency activity, roving eye movements, and decreased eye blinking and muscle artifact. Stage II sleep is characterized by sleep spindles. Interpretation IMPRESSION: This is a normal awake and asleep routine EEG. There is no evidence of focal slowing or epileptiform activity.
[2023-05-18 06:46] LABS: Albumin Globulin Ratio 1.5 (0.9-2); Albumin Level 3.7 gm/dl (3.4-5.0); BUN Creatinine Ratio 16.4 (10-20); Bilirubin,Total 0.4 mg/dl (0.2-1.0); Calcium 8.2 mg/dl (8.6-10.3); Creatinine Clr Calc Pharmacy 180.8 ml/min; Est GFR (Non-African American) 124.2 ml/min; Globulin 2.5 gm/dl (2.5-4.0); Magnesium 1.9 mg/dl (1.7-2.4); Phosphorus 3.5 mg/dl (2.5-4.9); Potassium 3.6 mmol/L (3.5-5.1); Total Protein 6.2 gm/dl (6.0-8.3)
[2023-05-18] MEDS: UMECLIDINIUM BROMIDE 62.5MCG/BLISTER 7 PUFFS/INHALER INH SCH (08:13)
[2023-05-18] MEDS: FLUTICASONE/VILANTEROL 200/25MCG 14 PUFFS/INHALER INH SCH (08:13)
[2023-05-18] MEDS: levETIRAcetam 500 MG TAB PO SCH ×2 (08:14→20:02)
[2023-05-18] MEDS: MONTELUKAST SODIUM 10 MG TABLET PO SCH (08:15)
[2023-05-18] MEDS: lamoTRIgine 25 MG TAB PO SCH ×2 (08:15→20:00)
[2023-05-18] MEDS: busPIRone 5 MG TAB PO SCH ×2 (08:15→20:06)
[2023-05-18] MEDS: guaiFENesin 600 MG TABCR PO SCH ×2 (08:16→20:04)
[2023-05-18] MEDS: FAMOTIDINE 20 MG TAB PO SCH (08:16)
[2023-05-18] MEDS: NICOTINE 14 MG/24 HR PATCH TD SCH (08:16)
[2023-05-18] MEDS: PANTOprazole 40 MG TAB PO SCH (08:17)
[2023-05-18] MEDS: ENOXAPARIN INJ 40 MG/0.4 ML SYR SQ SCH (08:17)
[2023-05-18] MEDS: lamoTRIgine 100 MG TAB PO SCH ×2 (08:18→20:03)
--- NOTE | 2023-05-18 08:37 | Pulmonology Progress Note ---
Date of Service May 18, 2023 Assessment & Plan (1) ABPA (allergic bronchopulmonary aspergillosis): (2) Severe persistent asthma: (3) Elevated IgE level: (4) Obesity: (5) Seizures: (6) Nocturnal hypoxia: (7) Tobacco use: Plan Chest x-ray 05-16-23: Portable film, good inspiratory effort, bilateral costophrenic and cardiophrenic angles are clean, no clear lung infiltrate ap preciated --Asthma Severe persistent With significant component of atopy, history of nasal polyps. Able to take NSAIDs [id number] without any issues Patient has cats as well as dogs at home. She is allergic to both COVID-19, influenza A/B, RSV negative on 06/13/2023 At home on Symbicort 160-4.5 mcg, 1 puff twice a dayalong with as needed albuterol Patient is allergic to almost everything on the Rast panel, as well asfumigatus IgE and IgG is positive Bronchoscopy 09/15/2022 was negative for any microorganisms. Cytology was also negative. AEC 570 on 05/17/2023, has been as high as 1000 11/24/2017 IgE 203805/27/2022 --> 1525 on 11/15/2022 2D echo 05/27/2022: EF 60-65%, RV normal in size and function PFT 09/27/2022ersonally reviewed: No obstructive lung dysfunction, insignificant bronchodilator response, normal TLC with moderate decrease in ERV, normal DLCO FVC 4.26 L 99%, FEV1 3.40 L 93%, FEV1/FVC 80%, RV 113%, TLC 83%, RV/TLC 115%, DLCO 104% -- Bronchopulmonary aspergillosis s/p treatment Patient was started on treatment with prednisone, itraconazole and Bactrim September 2022 Patient finished prednisone and Bactrim mid November 2022 Completed itraconazole for total of 4 months, mid January 2023 QTc 450 on 12/13/2022 Patient will have LFTs done every month while patient is on itraconazole Repeat IgE q2 months till 09/2023 Biologic such as benralizumab can still be used in such cases, I will consider starting that as well based on her response -- Nocturnal hypoxia Polysomnography 10/22/2022:AHI 3.9, nocturnal hypoxia Continue with nocturnal oxygen 2 L Nocturnal oximetry 11/08/2022on 2 L showed desaturation less than 88% for less than 5 minutes. Patient also gives history of restless leg Ferritin 67, transferrin saturation 26 For patients with iron deficiency or low-normal ferritin levels (ie, serum ferritin <75 ng/mL), iron repletion therapy suggested. Advised patient to take [id number] iron supplements --Current smoker 5-pack-year smoking history Ports of quitting explained the patient in depth -- Obesity Advised to lose with diet and exercise Plan: Advised the patient to use Symbicort 2 puffs twice a day right now on a daily basis Mucinex to help with chest action. No need for antibiotics right now as she just finished a course of levofloxacin Case discussed with Dr. Multani Please note the above document was generated using voice recognition software. It may contain grammatical, syntax or spelling errors.Any formal questions or concerns about the content, text or information contained within the body of this dictation should be directly addressed to the provider for clarification. Admission and Anticipated Discharge Date Admission Date: May 17, 2023 Subjective Patient seen and examined at bedside. No acute distress, no adverse events overnight She was saturating 96-97% on room air Patient says she is feeling better since coming to the hospital Coughing up clear phlegm. Denies any hemoptysis No nausea or vomiting Review of Systems Review of Systems: All systems reviewed & are unremarkable except as noted in Subjective Physical Exam Physical Exam: Constitutional: No acute distress HEENT: EOMI, PERRLA Respiratory system: Good air entry bilaterally, no wheeze, no rhonchi, no crackles CVS: S1-S2 positive, no murmurs or gallops Abdomen: Soft, nontender, nondistended, positive bowel sounds x4, obese Extremities: +2 pulses bilaterally radialis/ dorsalis pedis, no cyanosis, no edema Neuro: Awake alert oriented x3 Psych: Normal mood and affect G/U: No [place]obo Skin: no rashes, warm and dry Lymphatic: no cervical or axillary lymphadenopathy Results & Data Results & Data Vital Signs (Past 12 Hours) Vital Signs Temp Pulse Pulse Resp BP Pulse Ox O2 Del Method 05/18/23 07:58 36.5 C 83 16 116/73 96 Room Air 05/18/23 03:56 36.6 C 89 18 118/71 96 Nasal Cannula 05/17/23 22:00 85 05/17/23 23:28 36.6 C 76 18 120/77 96 Nasal Cannula O2 Flow Rate 05/18/23 07:58 05/18/23 03:56 2 05/17/23 22:00 05/17/23 23:28 2 Laboratory Results 05/18/23 05:42 05/18/23 05:42 PG Care Time/CCT Total # of Minutes Spent Total Time Spent with Patient: Total time spent is greater than 50% in coordination of care (as documented) at patient's floor/unit and/or counseling patient: Coding Level of Care Code 31083 SUB INP/OBS CARE 2/35MIN Diagnoses ABPA (allergic bronchopulmonary aspergillosis) B44.81 Severe persistent asthma J45.50 Elevated IgE level R76.8 Obesity E66.9 Seizures R56.9 Nocturnal hypoxia G47.34 Tobacco use Z72.0
[2023-05-18] MEDS ORDERED: LORazepam 0.5 MG TAB PO SCH (10:47)
--- NOTE | 2023-05-18 17:11 | Hospitalist Progress Note ---
Date of Service May 18, 2023 Assessment & Plan (1) Seizures: Plan Ms. 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 Prior attending spoke w/ mother over the phone: reportedly patient was watching TV with mother when eyes began to flicker and patient fell forward despite mother's attempts to orient. During this episode, patient was noted to have left facial droop with contraction of left hand. This was similar stroke presentation previously. Mother did note that facial droop and hand contraction resolved upon arrival of EMS. # Seizure History of seizures and on Keppra 1500 mg twice daily and Lamictal 250 mg twice daily, last follow up 03/2023 Received IV Keppra 3 g in the ER. EEG 05/18 w/ no evidence of focal slowing or epileptiform activity. Pending Keppra and Lamictal levels Continue home Keppra and Lamictal for now and IV Ativan as needed for breakthrough seizures Seizure precautions Monitor on telemetry Neurology on consult, appreciate recommendations - no driving. OP MRI L spine. OP sleep med f/u. c/w prior home dose of seizure meds. #?recrudescence of prior stoke iso seizure vs new stroke History of CVA with the left lower EXTR weakness No encephalomalacia or signs of old infarct noted on CT No documentation in epic; Not on aspirin and statin States that she is very claustrophobic with MRI she needs to be put down for MRI Neuro evaled, recs is mri or repeat CTH is MRI not possible. Ordered MRI in morning, awaiting. prn ativan ordered prior to MRI. If MRI can't be performed, will need repeat CTH. #Hypothyroidism: Continue home synthroid, TSH wnl #severe persistent asthma #Bronchopulmonary aspergillosis Recently treated for bronchitis On Singulair, inhalers and nebs as needed Pulm evaled, appreciate recs. IgE level pending. #History of vitamin B-12 deficiency Level wNL #Right calf tenderness doppler negative DVT prophylaxis Lovenox Admission and Anticipated Discharge Date Admission Date: May 17, 2023 Subjective Patient was seen and examined at bedside. Patient was sitting up in bed, on room air, NAD, resting comfortably. Patient denies any further seizure episodes in the hospital. Reports weakness of left extremities. Patient reports eating okay and moving bowels okay. Patient denies headache or dizziness or chest pain or palpitation. Physical Exam Physical Exam: GENERAL: Alert and oriented x3. NAD, on RA. HEENT: No pallor, no icterus. Pupils equal, round and reactive to light. Oral mucosa moist. NECK: No JVD, no neck masses. HEART: S1 and S2 heard. Regular rate and rhythm. No murmur, no gallop. RESPIRATORY SYSTEM: Normal AP diameter. No accessory muscle use. No wheezing, no crackles. ABDOMEN: Soft, bowel sounds present, nontender, no distention. CENTRAL NERVOUS SYSTEM: No facial droop. Speech is clear. Obeys simple commands. Moves extremities - LUE and LLE 4/5. EXTREMITIES: No edema, no erythema seen. Results & Data Results & Data Vital Signs (Past 12 Hours) Vital Signs Temp Pulse Pulse Resp BP Pulse Ox O2 Del Method 05/18/23 15:44 36.6 C 93 H 20 138/86 98 Room Air 05/18/23 15:04 76 05/18/23 11:33 36.5 C 78 18 121/70 97 Room Air 05/18/23 11:11 Room Air 05/18/23 10:22 79 05/18/23 07:58 36.5 C 83 16 116/73 96 Room Air
[2023-05-18] MEDS ORDERED: GADOBUTROL 65ML VIAL IV ONE (23:04)
[2023-05-18] MEDS: ACETAMINOPHEN 325 MG TAB PO PRN (23:19)
--- NOTE | 2023-05-19 00:18 | Magnetic Resonance Report ---
Exam(s): MRI HEAD W/WO Contrast IV Amt: 11cc gadavist EXAM: MR Head Without and With Intravenous Contrast CLINICAL HISTORY: Reason for exam: r/o cva. TECHNIQUE: Magnetic resonance images of the head/brain without and with intravenous contrast in multiple planes. CONTRAST: Patient received 11cc gadavist of IV contrast COMPARISON: 05/16/2023 FINDINGS: Brain: Unremarkable. No mass. No hemorrhage. No acute infarct. Ventricles: Unremarkable. No ventriculomegaly. Bones/joints: Unremarkable. Sinuses: Unremarkable as visualized. No acute sinusitis. Mastoid air cells: Unremarkable as visualized. No mastoid effusion. Orbits: Unremarkable as visualized. IMPRESSION: Unremarkable head/brain MRI. Electronically signed by: Binh Felix MD 05/19/23 00:16 AM
[2023-05-19] MEDS: LEVOTHYROXINE SODIUM 125 MCG TABLET PO SCH (06:06)
[2023-05-19 06:42] LABS: Hematocrit (blood only) 41.8 % (37.0-47.0); Hemoglobin 14.3 g/dl (12.0-16.0); Mean Corpuscular Hemoglobin 31.4 pg (25.0-34.0); Mean Corpuscular Hgb Conc 34.2 g/dL (32.0-36.0); Mean Corpuscular Volume 91.7 fL (80.0-100.0); Mean Platelet Volume 9.5 fL (9.4-12.4); Platelet Count 286 K/uL (130-400); RDW Coefficient of Variation 13.1 % (11.5-14.5); RDW Standard Deviation 43.4 fL (36.4-46.3); Red Blood Count 4.56 M/uL (4.20-5.40); White Blood Count 8.42 K/ul (4.8-10.8)
[2023-05-19 07:20] LABS: BUN Creatinine Ratio 23.3 (10-20); Calcium 8.5 mg/dl (8.6-10.3); Creatinine Clr Calc Pharmacy 183.5 ml/min; Est GFR (African American) 144.8 ml/min; Est GFR (Non-African American) 124.9 ml/min; Magnesium 1.9 mg/dl (1.7-2.4); Phosphorus 3.7 mg/dl (2.5-4.9); Potassium 3.8 mmol/L (3.5-5.1)
--- NOTE | 2023-05-19 07:53 | Pulmonology Progress Note ---
Date of Service May 19, 2023 Assessment & Plan (1) ABPA (allergic bronchopulmonary aspergillosis): (2) Severe persistent asthma: (3) Elevated IgE level: (4) Obesity: (5) Seizures: (6) Nocturnal hypoxia: (7) Tobacco use: Plan Chest x-ray 05-16-23: Portable film, good inspiratory effort, bilateral costophrenic and cardiophrenic angles are clean, no clear lung infiltrate ap preciated --Asthma Severe persistent With significant component of atopy, history of nasal polyps. Able to take NSAIDs [id number] without any issues Patient has cats as well as dogs at home. She is allergic to both COVID-19, influenza A/B, RSV negative on 06/13/2023 At home on Symbicort 160-4.5 mcg, 1 puff twice a dayalong with as needed albuterol Patient is allergic to almost everything on the Rast panel, as well asfumigatus IgE and IgG is positive Bronchoscopy 09/15/2022 was negative for any microorganisms. Cytology was also negative. AEC 570 on 05/17/2023, has been as high as 1000 11/24/2017 IgE 203805/27/2022 --> 1525 on 11/15/2022 2D echo 05/27/2022: EF 60-65%, RV normal in size and function PFT 09/27/2022ersonally reviewed: No obstructive lung dysfunction, insignificant bronchodilator response, normal TLC with moderate decrease in ERV, normal DLCO FVC 4.26 L 99%, FEV1 3.40 L 93%, FEV1/FVC 80%, RV 113%, TLC 83%, RV/TLC 115%, DLCO 104% -- Bronchopulmonary aspergillosis s/p treatment Patient was started on treatment with prednisone, itraconazole and Bactrim September 2022 Patient finished prednisone and Bactrim mid November 2022 Completed itraconazole for total of 4 months, mid January 2023 QTc 450 on 12/13/2022 Patient will have LFTs done every month while patient is on itraconazole Repeat IgE q2 months till 09/2023 Biologic such as benralizumab can still be used in such cases, I will consider starting that as well based on her response -- Nocturnal hypoxia Polysomnography 10/22/2022:AHI 3.9, nocturnal hypoxia Continue with nocturnal oxygen 2 L Nocturnal oximetry 11/08/2022on 2 L showed desaturation less than 88% for less than 5 minutes. Patient also gives history of restless leg Ferritin 67, transferrin saturation 26 For patients with iron deficiency or low-normal ferritin levels (ie, serum ferritin <75 ng/mL), iron repletion therapy suggested. Advised patient to take [id number] iron supplements --Current smoker 5-pack-year smoking history Ports of quitting explained the patient in depth -- Obesity Advised to lose with diet and exercise Plan: Advised the patient to use Symbicort 2 puffs twice a day right now on a daily basis Mucinex to help with chest congestion. No need for antibiotics right now as she just finished a course of levofloxacin Case discussed with Dr. Multani No further recommendation from pulmonary perspective, will sign off Please call directly with any questions Please note the above document was generated using voice recognition software. It may contain grammatical, syntax or spelling errors.Any formal questions or concerns about the content, text or information contained within the body of this dictation should be directly addressed to the provider for clarification. Admission and Anticipated Discharge Date Admission Date: May 17, 2023 Subjective Patient seen and examined at bedside. No acute distress, no adverse events overnight She was resting comfortably. Denied any chest pain Shortness of breath is improved. Occasional cough with clear phlegm Fair appetite, no nausea vomiting No seizure-like activity since coming to the hospital Review of Systems Review of Systems: All systems reviewed & are unremarkable except as noted in Subjective Physical Exam Physical Exam: Constitutional: No acute distress HEENT: EOMI, PERRLA Respiratory system: Good air entry bilaterally, no wheeze, no rhonchi, no crackles CVS: S1-S2 positive, no murmurs or gallops Abdomen: Soft, nontender, nondistended, positive bowel sounds x4, obese Extremities: +2 pulses bilaterally radialis/ dorsalis pedis, no cyanosis, no edema Neuro: Awake alert oriented x3 Psych: Normal mood and affect G/U: No Lobo Skin: no rashes, warm and dry Lymphatic: no cervical or axillary lymphadenopathy Results & Data Results & Data Vital Signs (Past 12 Hours) Vital Signs Temp Pulse Pulse Resp BP Pulse Ox O2 Del Method 05/19/23 03:52 36.6 C 76 18 103/67 95 Nasal Cannula 05/18/23 22:00 86 05/18/23 23:56 36.6 C 79 18 114/69 96 Room Air 05/18/23 20:00 Room Air O2 Flow Rate 05/19/23 03:52 2 05/18/23 22:00 05/18/23 23:56 05/18/23 20:00 Laboratory Results 05/19/23 06:03 05/19/23 06:03 PG Care Time/CCT Total # of Minutes Spent Total Time Spent with Patient: Total time spent is greater than 50% in coordination of care (as documented) at patient's floor/unit and/or counseling patient: Coding Level of Care Code 60147 SUB INP/OBS CARE 2/35MIN Diagnoses ABPA (allergic bronchopulmonary aspergillosis) B44.81 Severe persistent asthma J45.50 Elevated IgE level R76.8 Obesity E66.9 Seizures R56.9 Nocturnal hypoxia G47.34 Tobacco use Z72.0
[2023-05-19] MEDS: levETIRAcetam 500 MG TAB PO SCH (09:51)
[2023-05-19] MEDS: lamoTRIgine 100 MG TAB PO SCH (09:52)
[2023-05-19] MEDS: guaiFENesin 600 MG TABCR PO SCH (09:52)
[2023-05-19] MEDS: busPIRone 5 MG TAB PO SCH (09:52)
[2023-05-19] MEDS: MONTELUKAST SODIUM 10 MG TABLET PO SCH (09:52)
[2023-05-19] MEDS: ENOXAPARIN INJ 40 MG/0.4 ML SYR SQ SCH (09:53)
[2023-05-19] MEDS: PANTOprazole 40 MG TAB PO SCH (09:53)
[2023-05-19] MEDS: FAMOTIDINE 20 MG TAB PO SCH (09:53)
[2023-05-19] MEDS: NICOTINE 14 MG/24 HR PATCH TD SCH (09:54)
[2023-05-19] MEDS: FLUTICASONE/VILANTEROL 200/25MCG 14 PUFFS/INHALER INH SCH (09:54)
[2023-05-19] MEDS: UMECLIDINIUM BROMIDE 62.5MCG/BLISTER 7 PUFFS/INHALER INH SCH (09:54)
[2023-05-19] MEDS: lamoTRIgine 25 MG TAB PO SCH (09:55)
--- NOTE | 2023-05-19 11:43 | Discharge Summary ---
Date of Service May 19, 2023 Admission HPI Per Admitting Provider 27-year-old female with past med significant for hypothyroidism, hypertriglyceridemia, metabolic syndrome, hyperlipidemia, bronchopulmonary aspergillosis, severe persistent asthma, history of inappropriate sinus tachyc ardia, GERD, obesity, B12 deficiency, gastroparesis, overactive bladder, microhematuria, low-grade squamous epithelial lesion on cervical pap smear, restless leg syndrome, history of grand mal seizures, conductive hearing loss of right ear, history of neurocardiogenic syncope, plaque psoriasis, depression, lives at home with her mother was brought in because of seizures. As per mother patient was sitting at dinner table and mother noticed that she was just staring and not speaking when she went near her she fell on her chest and she slowly brought her up to the couch and lay her down. At the time she was clenching both arms right arm seem to be relaxing for some time and when EMS came she had 4 episodes of seizures with a few seconds of break in between. During the episode she had urinary incontinence. No biting of the tongue. She was confused until she came to the ER. Currently alert and oriented. In the ER she was given 3 g of IV Keppra. Last seizure was couple of years ago. She has weakness of the left lower extremity from the previous stroke as per patient. She has some tingliness today in the left hand. Denies any chest pain or shortness of breath. Has cough and bringing up brownish phlegm. Recently she was treated for bronchitis with Levaquin. Supposed to see pulmonary tomorrow. Denies any fevers. No headache. No runny nose or sore throat. No nausea. No abdominal pain. Normal bowel and bladder movements. Complaining of right calf tenderness. Says she had blood clot in that leg in the past. Mother is in the room. Past medical history as mentioned above Past surgical history. Colonoscopy. EGD. EGD biopsy. Left-sided bunion removal. Removal of ovarian cyst. Resection of nodule on the right lower leg. Total abdominal hysterectomy with removal of tubes. Tympanostomy tubes. Social history smokes quarter pack a day for 6 years. No alcohol use. No drug use. Family history father had cancer. Diabetes. Mother had diabetes. Epilepsy. Aunt has GERD. Maternal aunt has breast cancer. Maternal great grandmother had breast cancer. Admission Exam Per Admitting Provider General- Not in distress Head- atraumatic Eyes- PERRL. ENT- oropharynx clear Neck- supple, no JVD. Lungs- clear to auscultation No wheezing or crackles. Heart- regular rhythm; no murmur, no gallop. Abdomen- normal bowel sounds, soft, nontender, no distension. Extremities- right calf slightly swollen and tender on palpation. Neuro- alert, oriented x 3; PERRL,; no facial palsy; no dysarthria; power 5/5 in all extremities except left lower extremity 2/5. No pronator drift. sensations and position sense intact. Skin- warm & dry Principal Diagnosis Breakthrough seizure Possible recrudescence of prior stroke in the setting of seizure Discharge Exam GENERAL: Alert and oriented x3. NAD, on RA. HEENT: No pallor, no icterus. Pupils equal, round and reactive to light. Oral mucosa moist. NECK: No JVD, no neck masses. HEART: S1 and S2 heard. Regular rate and rhythm. No murmur, no gallop. RESPIRATORY SYSTEM: Normal AP diameter. No accessory muscle use. No wheezing, no crackles. ABDOMEN: Soft, bowel sounds present, nontender, no distention. CENTRAL NERVOUS SYSTEM: No facial droop. Speech is clear. Obeys simple commands. Moves extremities - LUE and LLE 4/5. EXTREMITIES: No edema, no erythema seen. Discharge Data Allergies Allergy/AdvReac Type Severity Reaction Status Date / Time hydromorphone Allergy Severe Respirations Verified 05/11/23 09:54 stopped. peanut Allergy Severe ALL Verified 05/11/23 09:54 NUTS-HIVES, SOB amoxicillin Allergy Intermediate Rash Verified 05/11/23 09:54 morphine Allergy Intermediate Hives Verified 05/11/23 09:54 oxycodone Allergy Intermediate Hives Verified 05/11/23 09:54 fish derived Allergy Unknown Unknown Verified 05/11/23 09:54 levofloxacin AdvReac Severe Seizure Verified 05/17/23 10:07 adhesive AdvReac Mild Rash Verified 05/11/23 09:54 Consultations 05/16/23 23:46 ED Decision to Admit Stat 05/17/23 08:00 Consult Pulmonology Routine 05/17/23 08:34 Consult Neurology Routine Ordered Studies 05/16/23 21:51 CT head/brain wo con Stat 05/17/23 01:38 US venous doppler LE RT Urgent 05/18/23 10:47 MRI Brain [MR brain wo/w con] Routine Hospital Course (1) Seizures: Plan Ms. 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 Prior attending spoke w/ mother over the phone: reportedly patient was watching TV with mother when eyes began to flicker and patient fell forward despite mother's attempts to orient. During this episode, patient was noted to have left facial droop with contraction of left hand. This was similar stroke presentation previously. Mother did note that facial droop and hand contraction resolved upon arrival of EMS. # Seizure History of seizures and on Keppra 1500 mg twice daily and Lamictal 250 mg twice daily, last follow up 03/2023 Received IV Keppra 3 g in the ER. EEG 05/18 w/ no evidence of focal slowing or epileptiform activity. Pending Keppra and Lamictal levels, patient to follow-up with these levels at PCP office during next visit. Continue home Keppra and Lamictal for now per neurology recommendation. Do not drive. Neurology on consult, appreciate recommendations - no driving. OP MRI L spine. OP sleep med f/u. c/w prior home dose of seizure meds. Patient declined SNF/rehab options, continue with home health physical therapy. #?recrudescence of prior stoke iso seizure vs new stroke History of CVA with the left lower EXTR weakness No encephalomalacia or signs of old infarct noted on CT No documentation in epic; Not on aspirin and statin MRI brain with no acute findings. #Hypothyroidism: Continue home synthroid, TSH wnl #severe persistent asthma #Bronchopulmonary aspergillosis Recently treated for bronchitis On Singulair, inhalers and nebs as needed Pulm evaled, appreciate recs. IgE level pending. Follow-up with pulmonology upon discharge. #History of vitamin B-12 deficiency Level wNL #Right calf tenderness doppler negative Patient is being discharged to home with home health with family support with following instruction at the point of discharge: Follow-up with your primary care physician within a week time and likely you will need labs CBC/CMP/magnesium/phosphorus. Neurology evaluated you for your breakthrough seizure. Your seizure medication has been kept as prior. Your levetiracetam and Lamictal level is pending at the time of discharge. Follow-up with the results at your next PCP visit within a week time. You will need outpatient MRI of the lumbar spine as per neurology recommendation. You will also need to follow-up with sleep medicine as an outpatient. Continue with physical therapy at home. Follow-up with neurology in 2 to 4 weeks time upon discharge. Do not drive until cleared per Neurology via Outpatient evaluation. Follow-up with your pulmonology in 2 to 4 weeks time upon discharge. Take your medications as prescribed. Please make sure that you are able to get your medications today by calling your pharmacy before you leave the hospital so that your treatment continuity is not broken. Home Health Attestation I certify that this patient is under my care and that I, or a physicians phlebotomist medical lab assistant working with me, had a face to-face encounter that meets the home health [id number] encounter requirements with this patient. The encounter with the patient was in whole, or in part, for the following medical condition, which is the primary reason for home health care (list medical condition): I certify that, based on my findings, the following services are medically necessary home health services: My clinical findings support the need for the above services because: PT Assessment for Endurance / Balance / Strength Further, I certify that my clinical findings support that this patient is homebound (i.e. absences from home require considerable and taxing effort and are for medical reasons or denominational services or infrequently or of short duration when for other reasons) because: Poor Endurance; SOB Minimal Exertion Transportation Assistance/Unable to Leave Home Unassisted Certification for Home Health Services: Based on the above findings, I certify that this patient is confined to the home and needs intermittent senior living care, physical therapy and/or speech th erapy or continues to need occupational therapy. The patient is under my care, and I have initiated the establishment of the plan of care. This patient will be followed by a physician who will periodically review the plan of care. Total Time Total Time Spent Total Time Spent (In Minutes): 40 Discharge Plan Discharge Items Patient Disposition: Home - Home Health Services Reason For Visit: SEIZURES Discharge Diagnosis: Breakthrough seizure Possible recrudescence of prior stroke in the setting of seizure Activity: Resume your previous activity Non-emergency contact: Primary Care Provider Call non-emergency contact if: you have any medication questions, your symptoms worsen and your temperature is above 101 Follow-up/Referrals: PCP,NO [Primary Care Provider] - Diet: Heart Healthy Addtl Attending Provider Instructions: Follow-up with your primary care physician within a week time and likely you will need labs CBC/CMP/magnesium/phosphorus. Neurology evaluated you for your breakthrough seizure. Your seizure medication has been kept as prior. Your levetiracetam and Lamictal level is pending at the time of discharge. Follow-up with the results at your next PCP visit within a week time. You will need outpatient MRI of the lumbar spine as per neurology recommendation. You will also need to follow-up with sleep medicine as an outpatient. Continue with physical therapy at home. Follow-up with neurology in 2 to 4 weeks time upon discharge. Do not drive until cleared per Neurology via Outpatient evaluation. Follow-up with your pulmonology in 2 to 4 weeks time upon discharge. Take your medications as prescribed. Please make sure that you are able to get your medications today by calling your pharmacy before you leave the hospital so that your treatment continuity is not broken. Pending Studies at Discharge: No Stand-Alone Forms: My [facility] [employer], Smoking Cessation Medications and DC Order Prescriptions: New nicotine 7 mg/24 hr Patch 24 Hour 14 mg transdermal QAM Qty: 28 0RF guaifenesin [Mucinex] 600 mg Tablet Extended Release 12hr 600 mg PO Q12 5 Days Qty: 10 0RF Continued (DME) Oxygen Home Liters Per Minute See Rx Instructions .MEDSUPPLY Qty: 1 0RF Rx Instructions: 2 L oxygen via nasal cannula nightly (DME) inhalational spacing device Spacer See Rx Instructions .ROUTE .MEDSUPPLY Qty: 1 0RF Rx Instructions: As directed (DME) Flutter Valve Device See Rx Instructions .MEDSUPPLY Qty: 1 0RF Rx Instructions: Use it every 6 hours when awake. lamotrigine [Lamictal] 200 mg Tablet 200 mg PO BID Rx Instructions: total 250mg bid albuterol sulfate 2.5 mg /3 mL (0.083 %) solution for nebulization 2.5 mg continuous nebulization Q4H PRN (Reason: Shortness Of Breath Or Wheezing) levetiracetam [Keppra] 500 mg Tablet 500 mg PO BID Rx Instructions: total 1500mg bid famotidine [Pepcid] 20 mg Tablet 20 mg PO DAILY levothyroxine 125 mcg Tablet 125 mcg PO DAILY buspirone 10 mg tablet 10 mg PO BID montelukast 10 mg Tablet 10 mg PO DAILY lamotrigine [Lamictal] 100 mg Tablet 50 mg PO BID Rx Instructions: total 250mg bid levetiracetam [Keppra] 1,000 mg Tablet 1,000 mg PO BID Rx Instructions: total 1500mg bid Spiriva Respimat 1.25 mcg/actuation Mist 2 puff INHALATION DAILY rabeprazole 20 mg Tablet,Delayed Release (Dr/Ec) 20 mg PO DAILY Changed budesonide-formoterol [Symbicort] 160-4.5 mcg/actuation Hfa Aerosol Inhaler 2 puff INHALATION BID Qty: 10.2 0RF Discharge Orders: Discharge Order (Routine); Ordered 05/19/23 Ordered By: Rajiv Multani Admission Data Admit Date/Time: 05/17/23 01:29 Attending Provider: Rajiv Multani Admit Provider: Gualberto Reyes Primary Care Provider: PCP,NO Other Providers: Gualberto Reyes ; Juanita Frances ; Lisset Raya ; Jonas Dominique ; Lisset Chirinos ; Yoseph Palacios ; Joce Valle ; Jose Shipley ; Nathaniel Rosales ; Maria Lr ; Braxton Lopes ; Steven Concepcion ; Lili Arias ; Michael Peres ; Maggie Srivastava ; Skylar Randolph ; [facility]
== END 2023-05-19 12:54 | disposition home health service (06) | DRG 101 ==
LOC: ED 21:45 → SUATTDRO 05-17 01:29 → EDINP 05-17 01:29 → INTOOBSV 05-17 01:29 → 2E 05-17 01:39

== ENCOUNTER 2025-06-06 18:42 | Inpatient (IN) ==
[2025-06-06] MEDS: OPTIRAY 320 125ml IV ONE (19:12)
--- NOTE | 2025-06-06 19:14 | Emergency Department Note ---
Impression & Plan Acute left-sided weakness, Stroke-like symptoms, Headache, Vomiting, Seizure disorder ED Provider Note NAME: NANETTE MATUTE AGE: 29 SEX: F : 1995 ARRIVES VIA: Ambulance INFORMANT: [Patient] ED PROVIDER(S): [Ata Briones MD] Patient first seen by me at 1907. She was made a stroke alert prehospital. CHIEF COMPLAINT: Stroke symptoms HISTORY OF PRESENT ILLNESS: The patient is a 29-year-old female who at 1750, about 1.5 hours ago, began to feel unwell. She had a buzzing in her head and felt like she might have a seizure. She laid down on the floor and, she cannot member much after. She states that when she woke up from the floor, her left arm and left leg were weak. Her left face was numb. She had lost urinary continence. She did vomit once at the house. Presently, she complains of a headache and some nausea. She states that the left arm and left leg are somewhat better than they were initially. The left facial numbness has resolved. The patient does have a history of seizure as well as TIA. She is not on blood thinning agents. PMHx/PSHx/Social Hx: See Below PHYSICAL EXAM: GENERAL: Patient is in no acute distress. HEENT: No acute trauma, normocephalic atraumatic, mucous membranes moist, no nasal congestion. NECK: No stridor, no adenopathy, no meningismus, trachea is midline. LUNGS: Clear to auscultation bilaterally, no wheeze, no rhonchi, breath sounds equal. HEART: Without murmurs gallops or rubs, regular rate and rhythm. ABDOMEN: Soft, nontender, no peritonitis. EXTREMITIES: No cyanosis, full range of motion of all the joints without pain or difficulty. NEUROLOGIC: Awake and alert, no facial droop or speech slurred. She has difficulty raising the left arm and left leg off the bed. The right arm and right leg are strong. SKIN: No jaundice, no diaphoresis. DIFFERENTIAL DIAGNOSIS: Stroke, seizure, TIA, intracranial bleeding, electrolyte imbalance, among others. EMERGENCY DEPARTMENT PROCEDURES: Discussion occurred with patient/family: Discussed with the patient (and/or family) the option of intravenous (IV) thrombolytic therapy for acute ischemic stroke. Explained that thrombolytics are clot-busting medications that can improve neurological and functional outcomes, with approximately one-third or more of treated patients experiencing a good recovery and reduced risk of long-term disability. Reviewed the risks, including the possibility of bleeding, particularly intracerebral hemorrhage (26% risk), and the 1% risk of angioedema (swelling of the face or airway). Discussed alternative options, including no treatment, which carries a higher likelihood of significant long-term disability. Reviewed brain imaging, confirming no major contraindications to administration. Engaged in shared decision-making, emphasizing that the decision is the patients, and that we would proceed only with their informed consent. Patient (and/or family) verbalized understanding of the risks, benefits, and alternatives, and agreed to proceed with IV thrombolytic therapy. MEDICAL DECISION MAKING: There is no leukocytosis or concerning anemia. There is a normal platelet count. No coagulopathy. No renal failure or significant electrolyte abnormality. No concerning liver enzyme elevation. testing was negative. ECG shows a sinus rhythm, no ischemia or dysrhythmia. Cardiac enzyme testing x 1 is not consistent with acute cardiac injury. Urinalysis does not show infection. Brain CT showed no acute bleed or mass effect. CTA of the head and neck were performed, there was no significant stenosis or clot. On exam, the patient had minimal to no movement of the left arm and left leg. No speech slur or facial droop. She complained of a headache and nausea. The patient received IV Zofran, a second dose of IV Zofran was given. She was given IV labetalol for her blood pressure. She received IV Tylenol for her headache. The patient was a stroke alert as noted above. She was seen by the telestroke team at [place]. Given the persistent weakness of the left arm and left leg, TNK was felt warranted. The risks and benefits were discussed at length with the patient and family. Patient was given TNK per protocol. She was within the TNK window. The patient is in need of a hospital stay and further workup. Hopefully, she will show some improvement with the TNK administration. At this point, whether this is a stroke, whether this is temporary paralysis secondary to seizure is unclear. TNK was felt warranted given the persistent weakness on the left as per the stroke neurologist at [place]. I did speak with case management, the on-call hospitalist was consulted. Prior/Outside records/notes reviewed: Today's EMS notes describing her presentation and transport to this hospital. ECG per my interpretation: Indication was strokelike symptoms. The ECG shows a normal sinus rhythm with a rate of 87. There is no ST elevation, no PVCs. The QTc is 471. Continuous Cardiac Monitoring per my interpretation: An order was placed for continuous cardiac monitoring. The monitor shows a rate of 88 with normal sinus rhythm. Imaging/x-ray results per my interpretation: Chronic Medical/Social conditions affecting care: History of seizure. Care/Management discussed with: [facility] telestroke neurology-Dr. Jarrell Level of care consideration(s): After review of the information above and other included data: --I believe the patient requires escalation of care to admission Critical Care Note: I have personally spent 43 minutes of critical care time in the direct management of this patient. This includes bedside care, interpretation of diagnostic studies, and testing, discussion with consultants, patient, and family members, and other required patient management activities. This 43 minutes is in excess of all separately billable procedures. DISPOSITION: Admission Past Med/Surg History Problem List Seizure disorder (Acute) Vomiting (Acute) Headache (Acute) Stroke-like symptoms (Acute) Acute left-sided weakness (Acute) Stroke-like symptoms Protrusion of lumbar intervertebral disc Foraminal stenosis of lumbosacral region Spondylolisthesis at L5-S1 level Spondylolysis of lumbar region Gastroparesis Vision problems Difficulty hearing Acne Chondral defect of left patella Arthritis of knee, left Cervical radiculopathy Hematuria Lipoma of both lower extremities Migraine without aura, not intractable, without status migrainosus Left knee pain Nocturnal hypoxia 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 Follows with pulm- treated with prednisone and Bactrim until 11/2022 and itraconazole until January 2023 Allergic rhinitis due to mold Allergic rhinitis due to weed pollen Allergic rhinitis due to tree pollen Allergic rhinitis due to grass pollen Allergic rhinitis due to animal (cat) (dog) hair and dander Allergy to cockroaches Allergic rhinitis due to dust mite Severe persistent asthma well controlled per pt, only uses res inh when ill Peanut allergy Food sensitivity with gastrointestinal symptoms Chronic idiopathic urticaria Chronic rhinitis Elevated IgE level Gastroparesis Hemorrhage of rectum and anus pt unaware?? Hepatomegaly RLS (restless legs syndrome) Morbid obesity Metabolic syndrome Acute severe asthma (Acute) GERD (gastroesophageal reflux disease) Overactive bladder Diabetes type 2, controlled diet controlled > no meds per pt H/O tonic-clonic seizures last one May 2023 [facility] > prior to that had been 2019 H/O deep venous thrombosis 2013 > no known cause > had been on blood thinner, now just aspirin Anxiety Asthma exacerbation Orthostatic hypotension PTSD (post-traumatic stress disorder) (Chronic) Acanthosis nigricans, acquired (Chronic) Inappropriate sinus tachycardia (Chronic) F/U DR [facility]. Was on Corlanor, which has significantly improved symptoms, 2022 > no longer on meds and no symptoms Ovarian cyst (Chronic) Hypothyroidism (Chronic) OAB (overactive bladder) (Chronic) GERD (gastroesophageal reflux disease) (Chronic) Seizures (Chronic) LAST SEIZURE ~ 08/2019. F/U DR VILLANUEVA [facility]. Most recent OV 03/2020, stable, deemed OK for endoscopy. Medical History History of pneumonia Depressed Arthritis History of kidney stones History of skin cancer on head. Saw Minnie No Hearing deficit PTSD (post-traumatic stress disorder) RLS (restless legs syndrome) Hx of deep venous thrombosis at age 18>was on blood thinner for short time Migraine Bronchitis recent dx>still on steroids Asthma last used rescue inhaler>"been a while" TIA (transient ischemic attack) last event>May 17, 2023 during seizure (reason for daily asa) Epilepsy - Also absence and pseudoseizures - Last episode [facility] 05/17/23 (due to sleep deprivation- admitted to [facility])- seen by neuro- recommended continued current meds at same doses (prior to this- no seizure since 2019) - 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 Samson S/P laparoscopic hysterectomy TLH-BS Nausea and vomiting after administration of anesthetic agent X 1 History of myringotomy History of cystoscopy for stones S/P removal of ovarian cyst laparoscopic, before hyst S/P laparoscopic cholecystectomy H/O foot surgery left bunion repair H/O esophagogastroduodenoscopy H/O colonoscopy Status post Mohs surgery Family History Mother Family history of diabetes mellitus Depression Diabetes Gall bladder disease Grandmother (Maternal) , 72 Diabetes Family history of diabetes mellitus Dyslipidemia Breast cancer Myocardial infarction Father Cancer Aunt , 54 Breast cancer Colorectal cancer Other No family history of adverse response to anesthesia Denies family history of Ovarian cancer Prostate cancer Social History Smoking Status: Former smoker Tobacco Type: Cigarettes Age Started Using Tobacco: 18; Age Quit Using Tobacco: 29; packs per day: 0.5; Cigarettes Per Day: less than 1/2 ppd > advised npo status; Smoking End Date: July 2024; Second Hand Exposure: No; Do You Dip or Chew Tobacco: No; Hx Alcohol Use: Yes Alcohol type: wine Hx Substance Use: No Preferred Language: Greenlandic Communication Ability: Effective Visual Impairment: No Limitations Hearing Ability: Use of Hearing Aid Compensation Programs Manager Required: No Beliefs That Will Affect Care: None marital status: Single Current Living Situation: Family current occupational status: disabled 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 How many Children do You have: 1 Other Information That Helps Us Care for You: No Feels Safe at Home: Yes Safety Concerns: Feels Safe At This Time Childhood Exposure to Second-Hand Smoke: Yes Diet: regular caffeine: No during the past year weight has: remained stable Dental Care, Regularly: No Physical Activity Frequency: Other Physical Activity Frequency Comment: exercise limited by physical condition Seatbelt Use: always Sunscreen Use: Yes Gender Identity: Female Assistive Devices: Cane, Denture - Upper, Denture - Lower, Glasses, Hearing Aid - Bilateral and Oxygen - at Night Allergies Allergies Allergy/AdvReac Type Severity Reaction Status Date / Time fish derived Allergy Severe Anaphylaxis Verified 06/04/25 14:48 hydromorphone Allergy Severe "Respirations Verified 06/04/25 14:48 stopped" peanut Allergy Severe All nuts- Verified 06/04/25 14:48 hives, SOB amoxicillin Allergy Intermediate Rash Verified 06/04/25 14:48 morphine Allergy Intermediate Hives Verified 06/04/25 14:48 oxycodone Allergy Intermediate Hives Verified 06/04/25 14:48 levofloxacin AdvReac Severe Seizure Verified 06/04/25 14:48 adhesive AdvReac Mild Rash Verified 06/04/25 14:48 Home Meds Home Medications Medication Instructions Recorded Confirmed buspirone 10 mg tablet 15 mg PO BID 05/17/23 06/06/25 famotidine 20 mg tablet (Pepcid) 20 mg PO QAM 05/17/23 06/06/25 cholecalciferol (vitamin D3) 50 50 mcg PO QAM 05/25/23 06/06/25 mcg (2,000 unit) capsule magnesium oxide 400 mg PO QAM 05/25/23 06/06/25 mecobalamin (vitamin B12) 1,000 1,000 mcg sublingual DAILY 05/25/23 06/06/25 mcg disintegrating tablet,sublingual rimegepant 75 mg disintegrating 75 mg PO ONCE PRN Migraine Headache 04/23/24 06/06/25 tablet (Nurtec ODT) aspirin 81 mg capsule 81 mg PO DAILY 05/09/24 06/06/25 rabeprazole 20 mg tablet,delayed 20 mg PO QAM 05/09/24 06/06/25 release clobetasol 0.05 % topical ointment 1 applic topical 1XD 06/06/25 06/06/25 fluoxetine 10 mg capsule 10 mg PO DAILY 06/06/25 06/06/25 levothyroxine 137 mcg tablet 125 mcg PO DAILY 06/06/25 06/06/25 magnesium oxide 400 mg (241.3 mg 400 mg PO DAILY 06/06/25 06/06/25 magnesium) tablet ondansetron 4 mg disintegrating 4 mg PO Q8H PRN Nausea And Vomiting 06/06/25 06/06/25 tablet simethicone 80 mg tablet 80 mg PO HS 06/06/25 06/06/25 Previous Rx's Medication Instructions Recorded inhalational spacing device #1 ea 06/14/24 mirabegron 50 mg tablet,extended 50 mg PO DAILY #90 tabs 08/14/24 release 24 hr (Myrbetriq) Oxygen Home #1 ea 11/16/24 albuterol sulfate 90 mcg/actuation 2 inh inhalation Q4H PRN Wheezing 12/10/24 aerosol inhaler #3 Inhalers budesonide-formoterol HFA 160 2 puff inhalation BID #10.2 grams 12/10/24 mcg-4.5 mcg/actuation aerosol inhaler (Symbicort) epinephrine 0.3 mg/0.3 mL 0.3 mg (0.3 mL) IM Q15M PRN 12/10/24 injection, auto-injector anaphylaxis #2 ea montelukast 10 mg tablet 10 mg PO QAM #30 tabs 12/10/24 (Singulair) brivaracetam 50 mg tablet 50 mg PO BID 30 days #60 tabs 01/29/25 (Briviact) albuterol sulfate 2.5 mg/3 mL 2.5 mg (3 mL) continuous 02/21/25 (0.083 %) solution for nebulization nebulization Q4H PRN Shortness Of Breath Or Wheezing #90 mL tiotropium bromide 2.5 2 puff inhalation DAILY #4 grams 02/21/25 mcg/actuation mist for inhalation (Spiriva Respimat) lorazepam 0.5 mg tablet 0.5 mg PO .COMPLEX PRN seizure 05/27/25 activity #5 tabs meloxicam 7.5 mg tablet 7.5 - 15 mg (1 - 2 x 7.5 mg) PO 05/27/25 DAILY #30 tabs Results & Data (ED) Vital Signs Vital Signs - 24 hr 06/06/25 19:22 06/06/25 19:34 06/06/25 19:36 Temperature 37.2 C Temperature Source Oral Pulse Rate 93 H 85 Pulse Rate [Apical] Pulse Rate from SpO2 Sensor Respiratory Rate 19 Respiratory Effort / Characteristics Non-Labored Spontaneous Respiratory Depth Normal Respiratory Pattern Blood Pressure 155/93 H Blood Pressure [Right Arm] Blood Pressure Mean 113 Blood Pressure Mean [Right Arm] Pulse Oximetry 98 Oxygen Delivery Method Room Air Room Air Sepsis Recent Fever Within 48 Hours No Sepsis New/Unexplained Change in Mental Status N/A Sepsis Action Taken by Nursing No Action Required 06/06/25 19:36 06/06/25 19:39 06/06/25 19:45 Temperature Temperature Source Pulse Rate 86 88 Pulse Rate [Apical] 82 Pulse Rate from SpO2 Sensor 86 91 H Respiratory Rate 17 14 17 Respiratory Effort / Characteristics Non-Labored Spontaneous Respiratory Depth Normal Respiratory Pattern Regular Blood Pressure 162/88 H 168/107 H Blood Pressure [Right Arm] 200/107 H Blood Pressure Mean 112 127 Blood Pressure Mean [Right Arm] 138 Pulse Oximetry 98 98 96 Oxygen Delivery Method Room Air Sepsis Recent Fever Within 48 Hours Sepsis New/Unexplained Change in Mental Status Sepsis Action Taken by Nursing 06/06/25 19:47 06/06/25 19:50 06/06/25 20:00 Temperature Temperature Source Pulse Rate 81 84 Pulse Rate [Apical] 82 Pulse Rate from SpO2 Sensor 83 88 Respiratory Rate 17 16 22 Respiratory Effort / Characteristics Non-Labored Spontaneous Respiratory Depth Normal Respiratory Pattern Regular Blood Pressure 180/96 H 148/107 H Blood Pressure [Right Arm] 180/96 H Blood Pressure Mean 123 120 Blood Pressure Mean [Right Arm] 124 Pulse Oximetry 94 95 91 Oxygen Delivery Method Room Air Room Air Sepsis Recent Fever Within 48 Hours Sepsis New/Unexplained Change in Mental Status Sepsis Action Taken by Nursing 06/06/25 20:07 06/06/25 20:15 06/06/25 20:20 Temperature Temperature Source Pulse Rate 89 85 Pulse Rate [Apical] 80 Pulse Rate from SpO2 Sensor 84 Respiratory Rate 20 17 Respiratory Effort / Characteristics Non-Labored Spontaneous Respiratory Depth Normal Respiratory Pattern Regular Blood Pressure 195/108 H 162/112 H Blood Pressure [Right Arm] 160/87 H Blood Pressure Mean 128 Blood Pressure Mean [Right Arm] 111 Pulse Oximetry 98 98 Oxygen Delivery Method Room Air Sepsis Recent Fever Within 48 Hours Sepsis New/Unexplained Change in Mental Status Sepsis Action Taken by Nursing 06/06/25 20:21 06/06/25 20:25 06/06/25 20:28 Temperature Temperature Source Pulse Rate 88 82 83 Pulse Rate [Apical] Pulse Rate from SpO2 Sensor 88 86 Respiratory Rate 20 22 Respiratory Effort / Characteristics Respiratory Depth Respiratory Pattern Blood Pressure 168/88 H 158/95 H 158/95 H Blood Pressure [Right Arm] Blood Pressure Mean 119 137 Blood Pressure Mean [Right Arm] Pulse Oximetry 98 98 Oxygen Delivery Method Room Air Sepsis Recent Fever Within 48 Hours Sepsis New/Unexplained Change in Mental Status Sepsis Action Taken by Nursing 06/06/25 20:30 06/06/25 20:35 06/06/25 20:35 Temperature Temperature Source Pulse Rate 88 72 Pulse Rate [Apical] 80 Pulse Rate from SpO2 Sensor 87 Respiratory Rate 15 17 15 Respiratory Effort / Characteristics Non-Labored Spontaneous Respiratory Depth Normal Respiratory Pattern Regular Blood Pressure 149/92 H 160/87 H Blood Pressure [Right Arm] Blood Pressure Mean 104 111 Blood Pressure Mean [Right Arm] Pulse Oximetry 95 96 96 Oxygen Delivery Method Room Air Sepsis Recent Fever Within 48 Hours Sepsis New/Unexplained Change in Mental Status Sepsis Action Taken by Nursing 06/06/25 20:50 06/06/25 21:01 06/06/25 21:05 Temperature Temperature Source Pulse Rate Pulse Rate [Apical] 88 79 Pulse Rate from SpO2 Sensor Respiratory Rate 17 17 Respiratory Effort / Characteristics Non-Labored Spontaneous Non-Labored Spontaneous Respiratory Depth Normal Normal Respiratory Pattern Regular Regular Blood Pressure Blood Pressure [Right Arm] 144/116 H 100/83 112/76 Blood Pressure Mean Blood Pressure Mean [Right Arm] 125 88 88 Pulse Oximetry 96 96 Oxygen Delivery Method Room Air Room Air Sepsis Recent Fever Within 48 Hours Sepsis New/Unexplained Change in Mental Status Sepsis Action Taken by Assisted Medications Current Medication List: was personally reviewed by me Laboratory Data Attestation: I reviewed the patient's lab results. 06/06/25 19:21 06/06/25 19:21 Lab Results 06/06/25 06/06/25 Range/Units 19:21 19:28 WBC 10.76 (4.8-10.8) K/ul RBC 5.07 (4.20-5.40) M/uL Hgb 15.2 (12.0-16.0) g/dl Hct 45.8 (37.0-47.0) % MCV 90.3 (80.0-100.0) fL MCH 30.0 (25.0-34.0) pg MCHC 33.2 (32.0-36.0) g/dL RDW Std Deviation 44.4 (36.4-46.3) fL RDW Coeff of Thao 13.4 (11.5-14.5) % Plt Count 337 (130-400) K/uL MPV 9.9 (9.4-12.4) fL Immature Gran % (Auto) 0.5 % Neut % (Auto) 66.6 % Lymph % (Auto) 23.2 % Leake % (Auto) 6.6 % Eos % (Auto) 2.9 % Baso % (Auto) 0.2 % Neut # (Auto) 7.17 H (1.40-6.50) K/uL Lymph # (Auto) 2.50 (1.20-3.40) K/uL Leake # (Auto) 0.71 H (0.11-0.59) K/uL Eos # (Auto) 0.31 (0.00-0.50) K/uL Baso # (Auto) 0.02 (0.00-0.20) K/uL Immature Gran # (Auto) 0.05 (0.01-0.20) K/uL PT 10.3 (9.0-12.0) Seconds INR 1.0 (0.9-1.1) APTT 25 (21-31) Seconds PTT Ratio 0.9 Sodium 139 (136-145) mmol/L Potassium 3.9 (3.5-5.1) mmol/L Chloride 104 (98-107) mmol/L Carbon Dioxide 28 (21-32) mmol/L Anion Gap 7 (3-11) BUN 13 (6-23) mg/dl Creatinine 0.76 (0.6-1.2) mg/dl Est Cr Clr Drug Dosing 147.8 ml/min eGFR 108.71 BUN/Creatinine Ratio 17.1 (10-20) Glucose 87 (70-99(Fasting)) mg/dl POC Glucose 117 H (70-99) mg/dl Calcium 9.7 (8.6-10.3) mg/dl Magnesium 1.9 (1.7-2.4) mg/dl Total Bilirubin 0.4 (0.2-1.0) mg/dl AST 22 (13-39) U/L ALT 37 (7-52) U/L Alkaline Phosphatase 65 (34-104) U/L Troponin I High Sens 3.6 (0-14) pg/ml Total Protein 7.4 (6.0-8.3) gm/dl Albumin 4.2 (3.4-5.0) gm/dl Globulin 3.2 (2.5-4.0) gm/dl Albumin/Globulin Ratio 1.3 (0.9-2) HCG, Qual Negative (Negative) Urine Color Yellow Urine Appearance Clear (Clear) Urine pH 7.0 (4.5-7.5) Ur Specific [place] 1.017 (1.000-1.030) Urine Protein Negative (Negative) Urine Glucose (UA) Negative (Negative) Urine Ketones Negative (Negative) Urine Blood Negative (Negative) Urine Nitrite Negative (Negative) Urine Bilirubin Negative (Negative) Urine Urobilinogen Negative (Negative) Ur Leukocyte Esterase Negative (Negative) Urine Comment Administered Medications Buspirone HCl (Buspirone 15 Mg Tab) 15 mg PO BID MENDY Stop: 07/06/25 20:59 Last Admin: 06/06/25 22:28 Dose: 15 mg Documented By: ERICA Simethicone (Simethicone 80 Mg Chew) 80 mg PO HS MENDY Stop: 07/06/25 21:44 Last Admin: 06/06/25 22:28 Dose: 80 mg Documented By: ERICA Discontinued Medications Diazepam (Diazepam 2 Mg Tablet) 2 mg PO NOW ONE Stop: 06/06/25 23:01 Last Admin: 06/06/25 23:06 Dose: 2 mg Documented By: ERICA Tenecteplase 25 mg/ Syringe 5 mls @ 60 mls/min IV NOW ONE; Protocol Stop: 06/06/25 20:16 Last Admin: 06/06/25 20:20 Dose: 60 mls/min Documented By: CAROLYNE Co-signed By: SALENA Acetaminophen (Ofirmev) 1,000 mg in 100 mls @ 400 mls/hr IV NOW STA Stop: 06/06/25 20:20 Last Infusion: 06/06/25 20:41 Dose: Infused Documented By: Admin: 06/06/25 20:21 Dose: 400 mls/hr Documented By: CAROLYNE Ioversol (Optiray 320 125ml) 119 ml IV ONCE ONE Stop: 06/06/25 19:13 Last Admin: 06/06/25 19:12 Dose: 119 ml Documented By: PIO Labetalol HCl (Labetalol Hcl Iv 5 Mg/Ml 20ml) 10 mg IV NOW STA Stop: 06/06/25 20:07 Last Admin: 06/06/25 20:07 Dose: 10 mg Documented By: CAROLYNE Miscellaneous (Stat Iv/Im) 1 each N/A NOW STA Stop: 06/06/25 20:06 Last Admin: 06/06/25 20:21 Dose: Not Given Documented By: CAROLYNE Ondansetron HCl (Ondansetron Inj 2 Mg/Ml 2 Ml Vial) Confirm Administered Dose 4 mg .ROUTE .STK-MED ONE Stop: 06/06/25 19:24 Last Admin: 06/06/25 20:08 Dose: 4 mg Documented By: CAROLYNE Ondansetron HCl (Ondansetron Inj 2 Mg/Ml 2 Ml Vial) 4 mg IV NOW STA Stop: 06/06/25 20:15 Last Admin: 06/06/25 20:25 Dose: 4 mg Documented By: CAROLYNE Ondansetron HCl (Ondansetron Inj 2 Mg/Ml 2 Ml Vial) Confirm Administered Dose 4 mg .ROUTE .STK-MED ONE Stop: 06/06/25 20:16 Last Admin: 06/06/25 20:25 Dose: Not Given Documented By: CAROLYNE Sodium Chloride (Sodium Chloride 0.9% 10ml Flush) 20 ml IV NOW STA Stop: 06/06/25 20:06 Last Admin: 06/06/25 20:21 Dose: 20 ml Documented By: CAROLYNE Imaging Data Radiologist's Impression: Head CT 06/06/25 18:[address] without contrast CT angiogram of the neck CT angiogram of the brain with contrast Provided History: Neuro deficit Comparison: None Technique: HEAD CT: Using multidetector thin collimation helical acquisition technique, axial, coronal and sagittal CT images from the skull base to the vertex were obtained without intravenous contrast. HEAD and NECK CTA: During rapid bolus intravenous injection of nonionic contrast material, axial images were obtained using thin collimation multidetector helical technique from the base of the neck through the of vertex of the head. This CT angiogram data was reconstructed at thin intervals with mild overlap. 3D reconstructions were obtained. The axial source images, multiplanar reformations, 3D reconstructions in both maximum intensity projection display and volume rendered models were reviewed. Dose reduction techniques were achieved by using automatic exposure control and/or adjustment of mA and/or kV according to patient size and/or use of iterative reconstruction technique. Findings: Head CT: There is no intracranial hemorrhage, mass effect, or midline shift. Jimenez/white matter differentiation in both cerebral hemispheres is preserved. Ventricles are proportionate to the cerebral sulci. Head CTA demonstrates no aneurysm or stenosis of the major intracranial arteries. Neck CTA demonstrates no stenosis of the major cervical arteries. The origins of the great vessels from the aortic arch are patent. No mass is noted within the visualized portions of the cervical soft tissues or lung apices. Impression: 1. Head CTA demonstrates no aneurysm or stenosis of the major intracranial arteries, 2. Neck CTA demonstrates no stenosis of the major cervical arteries. 3. No intracranial hemorrhage on the noncontrast head CT. Electronically signed by Madhu Rogers 06-06-2025 7:34 PM Head CTA 06/06/25 18:[address] without contrast CT angiogram of the neck CT angiogram of the brain with contrast Provided History: Neuro deficit Comparison: None Technique: HEAD CT: Using multidetector thin collimation helical acquisition technique, axial, coronal and sagittal CT images from the skull base to the vertex were obtained without intravenous contrast. HEAD and NECK CTA: During rapid bolus intravenous injection of nonionic contrast material, axial images were obtained using thin collimation multidetector helical technique from the base of the neck through the of vertex of the head. This CT angiogram data was reconstructed at thin intervals with mild overlap. 3D reconstructions were obtained. The axial source images, multiplanar reformations, 3D reconstructions in both maximum intensity projection display and volume rendered models were reviewed. Dose reduction techniques were achieved by using automatic exposure control and/or adjustment of mA and/or kV according to patient size and/or use of iterative reconstruction technique. Findings: Head CT: There is no intracranial hemorrhage, mass effect, or midline shift. Jimenez/white matter differentiation in both cerebral hemispheres is preserved. Ventricles are proportionate to the cerebral sulci. Head CTA demonstrates no aneurysm or stenosis of the major intracranial arteries. Neck CTA demonstrates no stenosis of the major cervical arteries. The origins of the great vessels from the aortic arch are patent. No mass is noted within the visualized portions of the cervical soft tissues or lung apices. Impression: 1. Head CTA demonstrates no aneurysm or stenosis of the major intracranial arteries, 2. Neck CTA demonstrates no stenosis of the major cervical arteries. 3. No intracranial hemorrhage on the noncontrast head CT. Electronically signed by Madhu Rogers 06-06-2025 7:34 PM Neck CTA 06/06/25 18:[address] without contrast CT angiogram of the neck CT angiogram of the brain with contrast Provided History: Neuro deficit Comparison: None Technique: HEAD CT: Using multidetector thin collimation helical acquisition technique, axial, coronal and sagittal CT images from the skull base to the vertex were obtained without intravenous contrast. HEAD and NECK CTA: During rapid bolus intravenous injection of nonionic contrast material, axial images were obtained using thin collimation multidetector helical technique from the base of the neck through the of vertex of the head. This CT angiogram data was reconstructed at thin intervals with mild overlap. 3D reconstructions were obtained. The axial source images, multiplanar reformations, 3D reconstructions in both maximum intensity projection display and volume rendered models were reviewed. Dose reduction techniques were achieved by using automatic exposure control and/or adjustment of mA and/or kV according to patient size and/or use of iterative reconstruction technique. Findings: Head CT: There is no intracranial hemorrhage, mass effect, or midline shift. Jimenez/white matter differentiation in both cerebral hemispheres is preserved. Ventricles are proportionate to the cerebral sulci. Head CTA demonstrates no aneurysm or stenosis of the major intracranial arteries. Neck CTA demonstrates no stenosis of the major cervical arteries. The origins of the great vessels from the aortic arch are patent. No mass is noted within the visualized portions of the cervical soft tissues or lung apices. Impression: 1. Head CTA demonstrates no aneurysm or stenosis of the major intracranial arteries, 2. Neck CTA demonstrates no stenosis of the major cervical arteries. 3. No intracranial hemorrhage on the noncontrast head CT. Electronically signed by Madhu Rogers 06-06-2025 7:34 PM Discharge Plan Visit Data Chief Complaint: Stroke Alert ED Provider: Ata Briones Discharge Problem: Acute left-sided weakness, Stroke-like symptoms, Headache, Vomiting, Seizure disorder Patient Disposition: Admitted As Inpatient Condition: Serious Discharge Instructions Interventions: ED Discharge Assessment Last Done: 06/06/25 21:38 Discharge Problem: Headache Qualifiers: Headache type: unspecified Headache chronicity pattern: acute headache I ntractability: not intractable Qualified Code(s): R51.9 - Headache, unspecified Vomiting Qualifiers: Vomiting type: unspecified Nausea presence: with nausea Qualified Code(s): R 11.2 - Nausea with vomiting, unspecified
[2025-06-06 19:29] LABS: Hematocrit (blood only) 45.8 % (37.0-47.0); Hemoglobin 15.2 g/dl (12.0-16.0); Immature Granulocytes # (auto) 0.05 K/uL (0.01-0.20); Immature Granulocytes % (auto) 0.5 %; Mean Corpuscular Hemoglobin 30.0 pg (25.0-34.0); Mean Corpuscular Volume 90.3 fL (80.0-100.0); Platelet Count 337 K/uL (130-400); RDW Standard Deviation 44.4 fL (36.4-46.3); Red Blood Count 5.07 M/uL (4.20-5.40); White Blood Count 10.76 K/ul (4.8-10.8)
--- NOTE | 2025-06-06 19:34 | CT Scan Report ---
Head CT without contrast CT angiogram of the neck CT angiogram of the brain with contrast Provided History: Neuro deficit Comparison: None Technique: HEAD CT: Using multidetector thin collimation helical acquisition technique, axial, coronal and sagittal CT images from the skull base to the vertex were obtained without intravenous contrast. HEAD and NECK CTA: During rapid bolus intravenous injection of nonionic contrast material, axial images were obtained using thin collimation multidetector helical technique from the base of the neck through the of vertex of the head. This CT angiogram data was reconstructed at thin intervals with mild overlap. 3D reconstructions were obtained. The axial source images, multiplanar reformations, 3D reconstructions in both maximum intensity projection display and volume rendered models were reviewed. Dose reduction techniques were achieved by using automatic exposure control and/or adjustment of mA and/or kV according to patient size and/or use of iterative reconstruction technique. Findings: Head CT: There is no intracranial hemorrhage, mass effect, or midline shift. Jimenez/white matter differentiation in both cerebral hemispheres is preserved. Ventricles are proportionate to the cerebral sulci. Head CTA demonstrates no aneurysm or stenosis of the major intracranial arteries. Neck CTA demonstrates no stenosis of the major cervical arteries. The origins of the great vessels from the aortic arch are patent. No mass is noted within the visualized portions of the cervical soft tissues or lung apices. Impression: 1. Head CTA demonstrates no aneurysm or stenosis of the major intracranial arteries, 2. Neck CTA demonstrates no stenosis of the major cervical arteries. 3. No intracranial hemorrhage on the noncontrast head CT. Electronically signed by Madhu Rogers 06-06-2025 7:34 PM
[2025-06-06 19:38] LABS: Appearance Urine Clear (Clear); Glucose Urine UA Negative (Negative)
[2025-06-06 19:50] LABS: Alanine Aminotransferase 37.0 U/L (7-52); Albumin Globulin Ratio 1.3 (0.9-2); Albumin Level 4.2 gm/dl (3.4-5.0); Alkaline Phosphatase 65.0 U/L (34-104); Anion Gap 7.0 (3-11); Bilirubin,Total 0.4 mg/dl (0.2-1.0); Blood Urea Nitrogen 13.0 mg/dl (6-23); Calcium 9.7 mg/dl (8.6-10.3); Carbon Dioxide 28.0 mmol/L (21-32); Chloride 104.0 mmol/L (98-107); Creatinine Clr Calc Pharmacy 147.8 ml/min; Globulin 3.2 gm/dl (2.5-4.0); Glucose 87.0 mg/dl (70-99(Fasting)); Magnesium 1.9 mg/dl (1.7-2.4); Potassium 3.9 mmol/L (3.5-5.1); Sodium 139.0 mmol/L (136-145); Total Protein 7.4 gm/dl (6.0-8.3)
[2025-06-06 20:05] LABS: INR 1.0 (0.9-1.1); Partial Thromboplastin Time 25 Seconds (21-31); Prothrombin Time 10.3 Seconds (9.0-12.0)
[2025-06-06] MEDS: LABETALOL HCL IV 5 MG/ML 20ML IV STA (20:07)
[2025-06-06] MEDS: ONDANSETRON INJ 2 MG/ML 2 ML VIAL ONE ×2 (20:08→20:25)
[2025-06-06] MEDS ORDERED: No Aspirin within 24hrs of THROMBOLYTIC-Stroke PO SCH (20:15)
[2025-06-06 20:19] LABS: Pregnancy Test, Serum Negative (Negative)
[2025-06-06] MEDS: TENECTEPLASE 25 MG in SYRINGE 0 ML IV ONE (20:20)
[2025-06-06] MEDS: ACETAMINOPHEN 1,000 MG/100 ML VIAL IV STA (20:21)
[2025-06-06] MEDS: SODIUM CHLORIDE 0.9% 10ML FLUSH IV STA (20:21)
[2025-06-06] MEDS: STAT IV/IM STA (20:21)
[2025-06-06] MEDS: ONDANSETRON INJ 2 MG/ML 2 ML VIAL IV STA (20:25)
[2025-06-06] MEDS ORDERED: ALBUTEROL HFA 8 GM INHALER INH PRN (20:49)
[2025-06-06] MEDS ORDERED: ONDANSETRON 4 MG OD TAB PO PRN (20:49)
[2025-06-06] MEDS ORDERED: ALBUTEROL 0.083% NEBU SOLN 3 ML VIAL INH PRN (20:54)
--- NOTE | 2025-06-06 21:04 | History & Physical Report ---
Date of Service June 06, 2025 Assessment & Plan (1) Stroke-like symptoms: (2) Acute left-sided weakness: (3) Seizure disorder: (4) Headache: Plan Patient is a 29-year-old female with past medical history of epilepsy, asthma, type II DM, TIA, DVT, RLS, PTSD. Patient presented as a stroke alert after she developed a "buzzing sensation" similar to previous seizures at 1750 06/06. Patient does not remember much of the episode however in the ED endorse left arm and leg weakness (improved) as well as left facial numbness (resolved). Head CT and CTAs negative for acute changes. She was given TNK at 06/06. She is being admitted to the ICU to have further stroke for seizure workup. #strokelike symptoms - head CT and CTAs negative for acute changes. Symptoms improving at time of admission. TNK given at 06/06. 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 Was recently transition from Keppra and lamotrigine to brivaracetam 01/2025. - continue brivaracetam #migraines - continue [facility] #type II DMA1c with a.m. labs, hypoglycemic protocol per ICU #asthmacontinue home inhalers and HS oxygen #GERDcontinue famotidine #mental health - continue BuSpar and fluoxetine #hypothyroidismcontinue Synthroid #history of DVTmany years ago, patient unsure of etiology. VTE ppx: SCDs Dispo: ICU Admission and Anticipated Discharge Date Admission Date: 06/06/25 History of Present Illness Chief Complaint: stroke alert Primary Care Provider: Dax Strauss DO Patient is a 29-year-old female with past medical history of epilepsy, asthma, type II DM, TIA, DVT, RLS, PTSD. Patient presented as a stroke alert after she developed a "buzzing sensation" similar to previous seizures at 1750 06/06. Patient does not remember much of the episode however in the ED endorse left arm and leg weakness (improved) as well as left facial numbness (resolved). Head CT and CTAs negative for acute changes. She was given TNK at 2011. She is being admitted to the ICU to have further stroke for seizure workup. Patient seen at bedside. She stated she does not remember much of the episode however felt like she was going to have a seizure. Family is no longer at bedside to obtain further history. Her most recent seizure was 1 to 2 years ago, she cannot remember exactly when. She stated she has been compliant with all of her home medications and did take them this morning. She was concerned that having labs on 05/21 affected her home medications, discussed that this is not the case. She stated after the episode she had left arm and leg weakness which is now improved as well as left facial droop and numbness which is now improving and almost resolved. She did lose urinary incontinence with the episode and has had numerous episodes of vomiting since. She currently endorses a headache and nausea. she stated she was a former smoker and quit within the past year, previously 1/2 pack/day for about 9 years. She state she occasionally drinks alcohol. She wishes to be full code. Medical records reviewed. She has a noted history of 2 episodes of DVT, 1st in 2013 with unknown etiology, second in 2021 due to pneumonia treated with 6 months of Coumadin. Noted history of 4 TIAs, most recent in 2022. Follows with neurology (Dr. Izaguirre) and appears she was transition off Keppra and lamotrigine onto Briviact 01/29/2025. Most recently noted seizure was 06/2023. Allergies Allergy/AdvReac Type Severity Reaction Status Date / Time fish derived Allergy Severe Anaphylaxis Verified 06/04/25 14:48 hydromorphone Allergy Severe "Respirations Verified 06/04/25 14:48 stopped" peanut Allergy Severe All nuts- Verified 06/04/25 14:48 hives, SOB amoxicillin Allergy Intermediate Rash Verified 06/04/25 14:48 morphine Allergy Intermediate Hives Verified 06/04/25 14:48 oxycodone Allergy Intermediate Hives Verified 06/04/25 14:48 levofloxacin AdvReac Severe Seizure Verified 06/04/25 14:48 adhesive AdvReac Mild Rash Verified 06/04/25 14:48 Home Medications Medication Instructions Recorded Confirmed Type buspirone 10 mg tablet 15 mg PO BID 05/17/23 06/06/25 History famotidine 20 mg tablet (Pepcid) 20 mg PO QAM 05/17/23 06/06/25 History cholecalciferol (vitamin D3) 50 50 mcg PO QAM 05/25/23 06/06/25 History mcg (2,000 unit) capsule magnesium oxide 400 mg PO QAM 05/25/23 06/06/25 History mecobalamin (vitamin B12) 1,000 1,000 mcg sublingual DAILY 05/25/23 06/06/25 History mcg disintegrating tablet,sublingual rimegepant 75 mg disintegrating 75 mg PO ONCE PRN Migraine Headache 04/23/24 06/06/25 History tablet (Nurtec ODT) aspirin 81 mg capsule 81 mg PO DAILY 05/09/24 06/06/25 History rabeprazole 20 mg tablet,delayed 20 mg PO QAM 05/09/24 06/06/25 History release inhalational spacing device #1 ea 06/14/24 06/06/25 Rx mirabegron 50 mg tablet,extended 50 mg PO DAILY #90 tabs 08/14/24 06/06/25 Rx release 24 hr (Myrbetriq) Oxygen Home #1 ea 11/16/24 06/06/25 Rx albuterol sulfate 90 mcg/actuation 2 inh inhalation Q4H PRN Wheezing 12/10/24 06/06/25 Rx aerosol inhaler #3 Inhalers budesonide-formoterol HFA 160 2 puff inhalation BID #10.2 grams 12/10/24 06/06/25 Rx mcg-4.5 mcg/actuation aerosol inhaler (Symbicort) epinephrine 0.3 mg/0.3 mL 0.3 mg (0.3 mL) IM Q15M PRN 12/10/24 06/06/25 Rx injection, auto-injector anaphylaxis #2 ea montelukast 10 mg tablet 10 mg PO QAM #30 tabs 12/10/24 06/06/25 Rx (Singulair) brivaracetam 50 mg tablet 50 mg PO BID 30 days #60 tabs 01/29/25 06/06/25 Rx (Briviact) albuterol sulfate 2.5 mg/3 mL 2.5 mg (3 mL) continuous 02/21/25 06/06/25 Rx (0.083 %) solution for nebulization nebulization Q4H PRN Shortness Of Breath Or Wheezing #90 mL tiotropium bromide 2.5 2 puff inhalation DAILY #4 grams 02/21/25 06/06/25 Rx mcg/actuation mist for inhalation (Spiriva Respimat) lorazepam 0.5 mg tablet 0.5 mg PO .COMPLEX PRN seizure 05/27/25 06/04/25 Rx activity #5 tabs meloxicam 7.5 mg tablet 7.5 - 15 mg (1 - 2 x 7.5 mg) PO 05/27/25 06/04/25 Rx DAILY #30 tabs clobetasol 0.05 % topical ointment 1 applic topical 1XD 06/06/25 06/06/25 History fluoxetine 10 mg capsule 10 mg PO DAILY 06/06/25 06/06/25 History levothyroxine 137 mcg tablet 125 mcg PO DAILY 06/06/25 06/06/25 History magnesium oxide 400 mg (241.3 mg 400 mg PO DAILY 06/06/25 06/06/25 History magnesium) tablet ondansetron 4 mg disintegrating 4 mg PO Q8H PRN Nausea And Vomiting 06/06/25 06/06/25 History tablet simethicone 80 mg tablet 80 mg PO HS 06/06/25 06/06/25 History Past Med/Surg History Problem List (Updated 06/07/25 @ 08:32 by Andrzej Velazquez MD) Unresponsive episode Seizure disorder (Acute) Vomiting (Acute) Headache (Acute) Stroke-like symptoms (Acute) Acute left-sided weakness (Acute) Stroke-like symptoms Protrusion of lumbar intervertebral disc Foraminal stenosis of lumbosacral region Spondylolisthesis at L5-S1 level Spondylolysis of lumbar region Gastroparesis Vision problems Difficulty hearing Acne Chondral defect of left patella Arthritis of knee, left Cervical radiculopathy Hematuria Lipoma of both lower extremities Migraine without aura, not intractable, without status migrainosus Left knee pain Nocturnal hypoxia 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 Follows with pulm- treated with prednisone and Bactrim until 11/2022 and itraconazole until January 2023 Allergic rhinitis due to mold Allergic rhinitis due to weed pollen Allergic rhinitis due to tree pollen Allergic rhinitis due to grass pollen Allergic rhinitis due to animal (cat) (dog) hair and dander Allergy to cockroaches Allergic rhinitis due to dust mite Severe persistent asthma well controlled per pt, only uses res inh when ill Peanut allergy Food sensitivity with gastrointestinal symptoms Chronic idiopathic urticaria Chronic rhinitis Elevated IgE level Gastroparesis Hemorrhage of rectum and anus pt unaware?? Hepatomegaly RLS (restless legs syndrome) Morbid obesity Metabolic syndrome Acute severe asthma (Acute) GERD (gastroesophageal reflux disease) Overactive bladder Diabetes type 2, controlled diet controlled > no meds per pt H/O tonic-clonic seizures last one May 2023 [facility] > prior to that had been 2019 H/O deep venous thrombosis 2013 > no known cause > had been on blood thinner, now just aspirin Anxiety Asthma exacerbation Orthostatic hypotension PTSD (post-traumatic stress disorder) (Chronic) Acanthosis nigricans, acquired (Chronic) Inappropriate sinus tachycardia (Chronic) F/U DR LUO [facility]. Was on Corlanor, which has significantly improved symptoms, 2022 > no longer on meds and no symptoms Ovarian cyst (Chronic) Hypothyroidism (Chronic) OAB (overactive bladder) (Chronic) GERD (gastroesophageal reflux disease) (Chronic) Seizures (Chronic) LAST SEIZURE ~ 08/2019. F/U DR VILLANUEVA NEUROLOGIST [facility]. Most recent OV 03/2020, stable, deemed OK for endoscopy. Medical History History of pneumonia Depressed Arthritis History of kidney stones History of skin cancer on head. Saw Minnie No Hearing deficit PTSD (post-traumatic stress disorder) RLS (restless legs syndrome) Hx of deep venous thrombosis at age 18>was on blood thinner for short time Migraine Bronchitis recent dx>still on steroids Asthma last used rescue inhaler>"been a while" TIA (transient ischemic attack) last event>May 17, 2023 during seizure (reason for daily asa) Epilepsy - Also absence and pseudoseizures - Last episode [facility] 05/17/23 (due to sleep deprivation- admitted to [facility])- seen by neuro- recommended continued current meds at same doses (prior to this- no seizure since 2019) - Grand mal x4 > followed with [facility] neuro Surgical History H/O adenoidectomy S/P excision of lipoma (05/18/24) Right Leg, Anterior Handley Excision of Two Lipomas(Right) - Amanda Gold, Hx of left knee surgery History of tooth extraction S/P excision of lipoma Right lower leg, Dr. Samson S/P laparoscopic hysterectomy TLH-BS Nausea and vomiting after administration of anesthetic agent X 1 History of myringotomy History of cystoscopy for stones S/P removal of ovarian cyst laparoscopic, before hyst S/P laparoscopic cholecystectomy H/O foot surgery left bunion repair H/O esophagogastroduodenoscopy H/O colonoscopy Status post Mohs surgery Family History Mother Family history of diabetes mellitus Depression Diabetes Gall bladder disease Grandmother (Maternal) , 72 Diabetes Family history of diabetes mellitus Dyslipidemia Breast cancer Myocardial infarction Father Cancer Aunt , 54 Breast cancer Colorectal cancer Other No family history of adverse response to anesthesia Denies family history of Ovarian cancer Prostate cancer Social History Smoking Status: Former smoker Tobacco Type: Cigarettes Age Started Using Tobacco: 18; Age Quit Using Tobacco: 29; packs per day: 0.5; Cigarettes Per Day: less than 1/2 ppd > advised npo status; Smoking End Date: July 2024; Second Hand Exposure: No; Do You Dip or Chew Tobacco: No; Hx Alcohol Use: Yes Alcohol type: wine Hx Substance Use: No Preferred Language: Congolese Communication Ability: Effective Visual Impairment: No Limitations Hearing Ability: Use of Hearing Aid Education Managers Required: No Beliefs That Will Affect Care: None marital status: Single Current Living Situation: Family current occupational status: disabled 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 How many Children do You have: 1 Other Information That Helps Us Care for You: No Feels Safe at Home: Yes Safety Concerns: Feels Safe At This Time Childhood Exposure to Second-Hand Smoke: Yes Diet: regular caffeine: No during the past year weight has: remained stable Dental Care, Regularly: No Physical Activity Frequency: Other Physical Activity Frequency Comment: exercise limited by physical condition Seatbelt Use: always Sunscreen Use: Yes Gender Identity: Female Assistive Devices: Cane and Oxygen - at Night Review of Systems Review of Systems: see HPI Physical Exam Physical Exam: The patient is awake, alert and oriented 3, well developed and well nourished, normocephalic and atraumatic, in no acute distress. Non-toxic appearing. HEENT- EOMI, mucous membranes dry. Hearing grossly intact. Heart-normal S1 and S2. No murmurs, rubs or gallops. Lungs-clear bilaterally, no respiratory distress, no accessory muscle use. Abdomen-normal bowel sounds and soft. No ascites noted. Non-tender. Extremities- no clubbing, cyanosis, or edema. Rheumatologic-normal range of motion. Musculoskeletal: 3/5 strength LUE, 5/5 strength RUE 5/5 strength BL LE Neurologic: PERRL, EOMI, accommodation nl, no face palsy, no dysarthria no focal motor deficits and not confused Speech / Cognition: normal speech Results & Data Results & Data Vital Signs (Past 12 Hours) Vital Signs Temp Pulse Pulse Resp BP BP Pulse Ox 06/06/25 21:01 100/83 06/06/25 20:50 88 17 144/116 H 96 06/06/25 20:35 72 15 160/87 H 96 06/06/25 20:35 80 17 96 06/06/25 20:30 88 15 149/92 H 95 06/06/25 20:28 83 158/95 H 06/06/25 20:25 82 22 158/95 H 98 06/06/25 20:21 88 20 168/88 H 98 06/06/25 20:20 80 17 160/87 H 98 06/06/25 20:15 85 20 162/112 H 98 06/06/25 20:07 89 195/108 H 06/06/25 20:00 84 22 148/107 H 91 06/06/25 19:50 81 16 180/96 H 95 06/06/25 19:47 82 17 180/96 H 94 06/06/25 19:45 88 17 168/107 H 96 06/06/25 19:39 86 14 162/88 H 98 06/06/25 19:36 82 17 200/107 H 98 06/06/25 19:36 06/06/25 19:34 85 06/06/25 19:22 37.2 C 93 H 19 155/93 H 98 O2 Del Method 06/06/25 21:01 06/06/25 20:50 Room Air 06/06/25 20:35 06/06/25 20:35 Room Air 06/06/25 20:30 06/06/25 20:28 06/06/25 20:25 06/06/25 20:21 Room Air 06/06/25 20:20 Room Air 06/06/25 20:15 06/06/25 20:07 06/06/25 20:00 06/06/25 19:50 Room Air 06/06/25 19:47 Room Air 06/06/25 19:45 06/06/25 19:39 06/06/25 19:36 Room Air 06/06/25 19:36 Room Air 06/06/25 19:34 06/06/25 19:22 Room Air Laboratory Results reviewed CBC, PT/INR, CMP, magnesium, troponin, hCG, UA, and nasal MRSA Diagnostic Findings reviewed head CT, head CTA, neck CTA Brain MRI ordered Medications Administered EDZofran 4 mg IV, Tylenol 1G IV, labetalol 10 mg IV, TNK ECG Additional Comments: NSR Rate 87 QTc 471 Code Status & VTE Plan Code Status full code VTE Prophylaxis Plan VTE Prophylaxis will be ordered: Yes Critical Care Time 45 minutes Supervising Physician Co-Signing Physician Notes Attending addendum: I have physically seen this patient, have supervised the MELLO's activities, and agree with the H&P unless as otherwise noted. Assessment and Plan: The patient is a 29-year-old female with a past medical history including epilepsy, asthma, diabetes mellitus type 2, TIA, DVT, RLS, and PTSD. She presented to the emergency department as a stroke alert, if she developed a buzzing sensation similar to previous sutures at 1750 on 06/06. Patient primarily members about the episode having left arm and left leg weakness, that has improved at this time, and left facial numbness that is resolved. CT scan of the head and CTA head and neck were all negative for acute changes. She was given TNK at the recommendation of stroke neurology. [facility]. Strokelike symptoms- CTA head, CTA head neck negative for acute changes Has a history of intermittent headaches Stroke with TNK order set Start atorvastatin 40 mg daily now MRI brain ordered and pending The patient will be admitted to telemetry for serial cardiac enzymes, serial EKG's, cardiac rhythm monitoring and a 2-D echocardiogram with Dopplers. Permissive hypertension Did receive labetalol 10 mg IV in ED x 1 History of seizures- History of grand mall seizures and PNES Last previous seizure was 07/07 Previous medications of Keppra and lamotrigine were changed to brivaracetam on 02/06, and brivaracetam will be continued Migraines- Continue [facility] Diabetes mellitus- Check hemoglobin A1c Hypoglycemia ICU protocol Remaining orders and notations as noted Total critical care time as noted was 45 minutes PG Care Time/CCT Total # of Minutes Spent Total Time Spent with Patient: Total time spent is greater than 50% in coordination of care (as documented) at patient's floor/unit and/or counseling patient: Coding Level of Care Code 70766 INT INP/OBS CARE 3/75MIN Diagnoses Stroke-like symptoms R29.90 Acute left-sided weakness R53.1 Seizure disorder G40.909 Headache R51.9 Headache chronicity pattern: acute headache Headache type: unspecified Intractability: not intractable (4) Headache Headache chronicity pattern: acute headache Headache type: unspecified Intractability: not intractable Qualified Code(s): R51.9 - Headache, unspecified
--- NOTE | 2025-06-06 21:13 | Critical Care Consultation ---
Date of Consultation June 06, 2025 Assessment & Plan (1) Stroke-like symptoms: (2) Seizures: (3) Nocturnal hypoxia: (4) Morbid obesity: (5) Anxiety: (6) Hypothyroidism: Plan Reason Critically Ill: 29 YOF presents with stroke like symptoms with complicating history of seizure disorder and migraine headaches, that remained with left sided weakness without improvement- and was deemed thrombolytic candidate by [facility] [place]. Patient received TNK at 2011. To the ICU for continued monitoring of symptoms and hemodynamics Neuro - Stroke like symptoms s/p thrombolytic administration. Hx: Seizure, Migraines, chronic neck and back pain CAM ICU: NEGATIVE - DDX: ischemic stroke vs. seizure with Pedro's paralysis vs. complicated migraine- Risk factors- obesity, DMII, nocturnal hypoxia, Hx of TIA - NIHSS- 4 post thrombolytic administration - CTA head and neck without stenosis/aneurysm- personally reviewed - MRI- to evaluate for ischemia- if patient able to tolerate- may consider small dose of Valium prior however do not want to cloud her neurological exam either - BP per protocol/guidelines- Labetalol as first agent, hydralazine as second- if difficult to control will add Cardene- currently within range - Lipid panel and HGB A1C in am- adjust medications as indicated- initiate statin - LIZBETH screening- with sleep study in 11/04- AHI 3.9- nocturnal hypoxia- continue oxygen therapy at night - Telemetry for 24 hours evaluate for dysrhythmia- consider extended outpatient monitoring if applicable - ECHO with bubble study - Neurology consultation appreciated - Seizure disorder- per review of recent neurology note of 02/06- patient appears to carry 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- she has been on brivaracetam for past ~year- no seizure reported in 1.5 years - Previously on Levetiracetam, lamotrigine, - changed to Brivaracetam secondary to drowsiness - Follow symptoms- will need to bring in her Brivaracetam as this is NF- - If further seizure- will discuss with neuro, but will use BZD if needed to break - Migraine - reported as without aura- however tonight appears that she may have had an aura- with buzzing in her ears and "not feeling right" - She has headache currently and appears to have responded to Tylenol- this historically does not sound like her usual migraines - Continue Nurtec- NF family will bring in from home - Chronic pain- will hold her NSAID in setting of thrombolytic administration - Continue Cymbalta Cardiac - No acute needs - At this time continue with screening for medical optimization of vascular disease - hold asa- restart 24 hours post thrombolytic (06/07/25 @ 2011) - Lipid panel as above- initiate statin adjust dose - monitor as above - ECHO as above Respiratory - No acute needs- HX asthma, allergic rhinitis, nighttime hypoxia - Continue home inhalers with: SHAWANDA, ICS,LABA, and leukotriene inhibitor - Continue nighttime oxygen GI - No acute needs, HX GERD - Continue with famotidine - Diet advance as tolerated once passes swallow screen- currently without facial droop RENAL/LYTES - No acute needs - Continue home magnesium - follow daily BMPs, ICU electrolyte protocol - No acute needs ENDO - No acute needs- hx: DMII, Hypothyroidism - check thyroid level when able to draw blood post TNK - HGBa1C- add medical therapy as warranted - ICU hyper/hypoglycemic protocol HEME - No acute need - reported history of previous DVT as child - if no further causes/risks could consider further heme workup ID - No concern at this time for infective etiology - urine negative for infection/mimic - no WBC elevation or fevers or prodrome per patient LINES/IV ACCESS - PIV x2 Continue use of these lines DVT PROPHYLAXIS - SCDS, chemoprophylaxis contraindicated in setting of TNK administration DISPO: ICU for 24 hour post thrombolytic administration I have personally spent 40 minutes of critical care time in the direct management of this patient. This is a life/limb threatening event. This includes time spent evaluating patient, direct bedside care, chart review, placing orders, interpretation of diagnostic studies, discussion with consultants, patient, and family members, as well as other required patient management activities. This time is exclusive of all separately billable procedures,and separate from and in addition to any other critical care service time. Thank you for allowing us to participate in the care of this patient. Please refer to my attending physician's documentation for any further recommendations. History of Present Illness Reason for Consultation: stroke like symptoms s/p thrombolytic therapy Requesting Physician: Britton Tao MD Attending Physician: Britton Tao MD History of Present Illness 29 YOF with medical history of: Asthma, Migraines, Seizure disorder, Chronic back pain, Anxiety/depression, GERD, DMII, Nocturnal hypoxia, Hypothyroidism. Patient presents today to the ER via EMS from home. Patient is accompanied by her son, boyfriend, and her mother. Patient, mother, and boyfriend provide information. Patient reports that she was feeling well through the day and around 1800 this evening patient was eating a hoagie and she reports feeling "weird" and then doesn't remember anything until EMS showed up. The mother was with the patient and the mother reports that Pallavi was eating her sandwich, and Pallavi said "Mom I don't feel right" , and the Mother reoports that Pallavi was staring off and had some drooping of the left side of her face and both of her arms became contracted up to her chest and she went unresponsive and lost control of her bladder. Mother reports that Pallavi came to, however wasn't talking to them and was weak or not moving her left side, this lasted until EMS came, and Pallavi started to improve in her mentation but remained with left sided weakness. In the ER the patient was stroke alerted and underwent CT head, CT angio head and neck, ECG performed, routine labs were performed and teleneurology consultation to [facility] was performed. Following her teleneurology evaluation and no further improvement in her symptoms, she was deemed a thrombol ytic candidate. TNK was administered at 2011. Patient currently with left arm and leg weakness, left arm and left leg ataxia, and left arm sensation changes. Patient will be brought to the ICU for continued monitoring of symptoms and hemodyanmics. CODE: FULL Allergies Allergy/AdvReac Type Severity Reaction Status Date / Time fish derived Allergy Severe Anaphylaxis Verified 06/04/25 14:48 hydromorphone Allergy Severe "Respirations Verified 06/04/25 14:48 stopped" peanut Allergy Severe All nuts- Verified 06/04/25 14:48 hives, SOB amoxicillin Allergy Intermediate Rash Verified 06/04/25 14:48 morphine Allergy Intermediate Hives Verified 06/04/25 14:48 oxycodone Allergy Intermediate Hives Verified 06/04/25 14:48 levofloxacin AdvReac Severe Seizure Verified 06/04/25 14:48 adhesive AdvReac Mild Rash Verified 06/04/25 14:48 Home Medications Medication Instructions Recorded Confirmed Type buspirone 10 mg tablet 15 mg PO BID 05/17/23 06/06/25 History famotidine 20 mg tablet (Pepcid) 20 mg PO QAM 05/17/23 06/06/25 History cholecalciferol (vitamin D3) 50 50 mcg PO QAM 05/25/23 06/06/25 History mcg (2,000 unit) capsule magnesium oxide 400 mg PO QAM 05/25/23 06/06/25 History mecobalamin (vitamin B12) 1,000 1,000 mcg sublingual DAILY 05/25/23 06/06/25 History mcg disintegrating tablet,sublingual rimegepant 75 mg disintegrating 75 mg PO ONCE PRN Migraine Headache 04/23/24 06/06/25 History tablet (Nurtec ODT) aspirin 81 mg capsule 81 mg PO DAILY 05/09/24 06/06/25 History rabeprazole 20 mg tablet,delayed 20 mg PO QAM 05/09/24 06/06/25 History release inhalational spacing device #1 ea 06/14/24 06/06/25 Rx mirabegron 50 mg tablet,extended 50 mg PO DAILY #90 tabs 08/14/24 06/06/25 Rx release 24 hr (Myrbetriq) Oxygen Home #1 ea 11/16/24 06/06/25 Rx albuterol sulfate 90 mcg/actuation 2 inh inhalation Q4H PRN Wheezing 12/10/24 06/06/25 Rx aerosol inhaler #3 Inhalers budesonide-formoterol HFA 160 2 puff inhalation BID #10.2 grams 12/10/24 06/06/25 Rx mcg-4.5 mcg/actuation aerosol inhaler (Symbicort) epinephrine 0.3 mg/0.3 mL 0.3 mg (0.3 mL) IM Q15M PRN 12/10/24 06/06/25 Rx injection, auto-injector anaphylaxis #2 ea montelukast 10 mg tablet 10 mg PO QAM #30 tabs 12/10/24 06/06/25 Rx (Singulair) brivaracetam 50 mg tablet 50 mg PO BID 30 days #60 tabs 01/29/25 06/06/25 Rx (Briviact) albuterol sulfate 2.5 mg/3 mL 2.5 mg (3 mL) continuous 02/21/25 06/06/25 Rx (0.083 %) solution for nebulization nebulization Q4H PRN Shortness Of Breath Or Wheezing #90 mL tiotropium bromide 2.5 2 puff inhalation DAILY #4 grams 02/21/25 06/06/25 Rx mcg/actuation mist for inhalation (Spiriva Respimat) lorazepam 0.5 mg tablet 0.5 mg PO .COMPLEX PRN seizure 05/27/25 06/04/25 Rx activity #5 tabs meloxicam 7.5 mg tablet 7.5 - 15 mg (1 - 2 x 7.5 mg) PO 05/27/25 06/04/25 Rx DAILY #30 tabs clobetasol 0.05 % topical ointment 1 applic topical 1XD 06/06/25 06/06/25 History fluoxetine 10 mg capsule 10 mg PO DAILY 06/06/25 06/06/25 History levothyroxine 137 mcg tablet 125 mcg PO DAILY 06/06/25 06/06/25 History magnesium oxide 400 mg (241.3 mg 400 mg PO DAILY 06/06/25 06/06/25 History magnesium) tablet ondansetron 4 mg disintegrating 4 mg PO Q8H PRN Nausea And Vomiting 06/06/25 06/06/25 History tablet simethicone 80 mg tablet 80 mg PO HS 06/06/25 06/06/25 History Patient History Medical History History of pneumonia Depressed Arthritis History of kidney stones History of skin cancer on head. Saw Minnie No Hearing deficit PTSD (post-traumatic stress disorder) RLS (restless legs syndrome) Hx of deep venous thrombosis at age 18>was on blood thinner for short time Migraine Bronchitis recent dx>still on steroids Asthma last used rescue inhaler>"been a while" TIA (transient ischemic attack) last event>May 17, 2023 during seizure (reason for daily asa) Epilepsy - Also absence and pseudoseizures - Last episode [facility] 05/17/23 (due to sleep deprivation- admitted to [facility])- seen by neuro- recommended continued current meds at same doses (prior to this- no seizure since 2019) - 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 Samson S/P laparoscopic hysterectomy TL-BS Nausea and vomiting after administration of anesthetic agent X 1 History of myringotomy History of cystoscopy for stones S/P removal of ovarian cyst laparoscopic, before hyst S/P laparoscopic cholecystectomy H/O foot surgery left bunion repair H/O esophagogastroduodenoscopy H/O colonoscopy Status post Mohs surgery Family History Mother Family history of diabetes mellitus Depression Diabetes Gall bladder disease Grandmother (Maternal) , 72 Diabetes Family history of diabetes mellitus Dyslipidemia Breast cancer Myocardial infarction Father Cancer Aunt , 54 Breast cancer Colorectal cancer Other No family history of adverse response to anesthesia Denies family history of Ovarian cancer Prostate cancer Social History Smoking Status: Unknown if ever smoked Tobacco Type: Cigarettes Age Started Using Tobacco: 18; Age Quit Using Tobacco: 29; packs per day: 0.5; Cigarettes Per Day: less than 1/2 ppd > advised npo status; Second Hand Exposure: No; Do You Dip or Chew Tobacco: No; Hx Alcohol Use: No Hx Substance Use: No Preferred Language: Israeli Communication Ability: Effective Visual Impairment: No Limitations Hearing Ability: Use of Hearing Aid Mechanic Helper Required: No Beliefs That Will Affect Care: None marital status: Single Current Living Situation: Family and Significant Other current occupational status: disabled 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 How many Children do You have: 1 Feels Safe at Home: Yes Childhood Exposure to Second-Hand Smoke: Yes Diet: regular caffeine: No during the past year weight has: remained stable Dental Care, Regularly: No Physical Activity Frequency: Other Physical Activity Frequency Comment: exercise limited by physical condition Seatbelt Use: always Sunscreen Use: Yes Gender Identity: Female Assistive Devices: Glasses, Hearing Aid - Left, Hearing Aid - Right and Nebulizer Review of Systems Review of Systems: REVIEW OF SYSTEMS: Constitutional: No fever, sweats or chills Eyes: No diplopia, no worsening or blurred vision ENT: normal hearing, no trouble swallowing Respiratory: (+) night time oxygen use, asthma, No cough, sputum, dyspnea at rest or on exertion Cardiovascular: No chest pain, tightness or palpitations Abdomen: No pain, nausea, vomiting, diarrhea or constipation Musculoskeletal: (+) chronic neck, back and knee pains, no new joint pain, calf pain, swelling Neurologic: (+) weakness, numbness/tingling, seizure hx- no siezure reported in over a year Psychiatric: (+) anxiety or depression Skin: No rash or itch Physical Exam Physical Exam: PHYSICAL EXAM: General: awake, alert, no apparent distress Head: Normocephalic, atraumatic Neuro: AAO x 3, speech clear and appropriate, no facial droop, tongue midline, strength right intact upper and lower 5/5, left 4/5 strength upper and lower, left arm weakness shoulder, sensation interpreted less on left upper from elbow down, left leg, right arm, right leg, and face with sensation intact. Left arm straightened out and no pronator drift to LUE, mild drift to LLE Chest: equal rise and fall of the chest, no accessory muscle use, no heaves or thrills, Clear to auscultation, on room air, Cardiac: Regular rate and rhythm, telemetry reviewed, skin warm dry, cap refill <3 seconds, peripheral pulses +2 no JVD, no murmur, no edema GI: NABS x 4 quadrants, soft, nontender to palpation, no rebound, guarding or tenderness : Spontaneously voiding, no pain, no CVA tenderness, Psych: Normal mood and affect Results & Data Results & Data Vital Signs (Past 12 Hours) Vital Signs Temp Pulse Pulse Resp BP BP Pulse Ox 06/06/25 21:01 100/83 06/06/25 20:50 88 17 144/116 H 96 06/06/25 20:35 72 15 160/87 H 96 06/06/25 20:35 80 17 96 06/06/25 20:30 88 15 149/92 H 95 06/06/25 20:28 83 158/95 H 06/06/25 20:25 82 22 158/95 H 98 06/06/25 20:21 88 20 168/88 H 98 06/06/25 20:20 80 17 160/87 H 98 06/06/25 20:15 85 20 162/112 H 98 06/06/25 20:07 89 195/108 H 06/06/25 20:00 84 22 148/107 H 91 06/06/25 19:50 81 16 180/96 H 95 06/06/25 19:47 82 17 180/96 H 94 06/06/25 19:45 88 17 168/107 H 96 06/06/25 19:39 86 14 162/88 H 98 06/06/25 19:36 82 17 200/107 H 98 06/06/25 19:36 06/06/25 19:34 85 06/06/25 19:22 37.2 C 93 H 19 155/93 H 98 O2 Del Method 06/06/25 21:01 06/06/25 20:50 Room Air 06/06/25 20:35 06/06/25 20:35 Room Air 06/06/25 20:30 06/06/25 20:28 06/06/25 20:25 06/06/25 20:21 Room Air 06/06/25 20:20 Room Air 06/06/25 20:15 06/06/25 20:07 06/06/25 20:00 06/06/25 19:50 Room Air 06/06/25 19:47 Room Air 06/06/25 19:45 06/06/25 19:39 06/06/25 19:36 Room Air 06/06/25 19:36 Room Air 06/06/25 19:34 06/06/25 19:22 Room Air Laboratory Results Abnormal lab results 06/06/25 Range/Units 19:21 Neut # (Auto) 7.17 H (1.40-6.50) K/uL Drew # (Auto) 0.71 H (0.11-0.59) K/uL POC Glucose 117 H (70-99) mg/dl Diagnostic Findings Head CT 06/06/25 18:[address] without contrast CT angiogram of the neck CT angiogram of the brain with contrast Provided History: Neuro deficit Comparison: None Technique: HEAD CT: Using multidetector thin collimation helical acquisition technique, axial, coronal and sagittal CT images from the skull base to the vertex were obtained without intravenous contrast. HEAD and NECK CTA: During rapid bolus intravenous injection of nonionic contrast material, axial images were obtained using thin collimation multidetector helical technique from the base of the neck through the of vertex of the head. This CT angiogram data was reconstructed at thin intervals with mild overlap. 3D reconstructions were obtained. The axial source images, multiplanar reformations, 3D reconstructions in both maximum intensity projection display and volume rendered models were reviewed. Dose reduction techniques were achieved by using automatic exposure control and/or adjustment of mA and/or kV according to patient size and/or use of iterative reconstruction technique. Findings: Head CT: There is no intracranial hemorrhage, mass effect, or midline shift. Jimenez/white matter differentiation in both cerebral hemispheres is preserved. Ventricles are proportionate to the cerebral sulci. Head CTA demonstrates no aneurysm or stenosis of the major intracranial arteries. Neck CTA demonstrates no stenosis of the major cervical arteries. The origins of the great vessels from the aortic arch are patent. No mass is noted within the visualized portions of the cervical soft tissues or lung apices. Impression: 1. Head CTA demonstrates no aneurysm or stenosis of the major intracranial arteries, 2. Neck CTA demonstrates no stenosis of the major cervical arteries. 3. No intracranial hemorrhage on the noncontrast head CT. Electronically signed by Madhu Rogers 06-06-2025 7:34 PM Head CTA 06/06/25 18:[address] without contrast CT angiogram of the neck CT angiogram of the brain with contrast Provided History: Neuro deficit Comparison: None Technique: HEAD CT: Using multidetector thin collimation helical acquisition technique, axial, coronal and sagittal CT images from the skull base to the vertex were obtained without intravenous contrast. HEAD and NECK CTA: During rapid bolus intravenous injection of nonionic contrast material, axial images were obtained using thin collimation multidetector helical technique from the base of the neck through the of vertex of the head. This CT angiogram data was reconstructed at thin intervals with mild overlap. 3D reconstructions were obtained. The axial source images, multiplanar reformations, 3D reconstructions in both maximum intensity projection display and volume rendered models were reviewed. Dose reduction techniques were achieved by using automatic exposure control and/or adjustment of mA and/or kV according to patient size and/or use of iterative reconstruction technique. Findings: Head CT: There is no intracranial hemorrhage, mass effect, or midline shift. Jimenez/white matter differentiation in both cerebral hemispheres is preserved. Ventricles are proportionate to the cerebral sulci. Head CTA demonstrates no aneurysm or stenosis of the major intracranial arteries. Neck CTA demonstrates no stenosis of the major cervical arteries. The origins of the great vessels from the aortic arch are patent. No mass is noted within the visualized portions of the cervical soft tissues or lung apices. Impression: 1. Head CTA demonstrates no aneurysm or stenosis of the major intracranial arteries, 2. Neck CTA demonstrates no stenosis of the major cervical arteries. 3. No intracranial hemorrhage on the noncontrast head CT. Electronically signed by Madhu Rogers 06-06-2025 7:34 PM Neck CTA 06/06/25 18:[address] without contrast CT angiogram of the neck CT angiogram of the brain with contrast Provided History: Neuro deficit Comparison: None Technique: HEAD CT: Using multidetector thin collimation helical acquisition technique, axial, coronal and sagittal CT images from the skull base to the vertex were obtained without intravenous contrast. HEAD and NECK CTA: During rapid bolus intravenous injection of nonionic contrast material, axial images were obtained using thin collimation multidetector helical technique from the base of the neck through the of vertex of the head. This CT angiogram data was reconstructed at thin intervals with mild overlap. 3D reconstructions were obtained. The axial source images, multiplanar reformations, 3D reconstructions in both maximum intensity projection display and volume rendered models were reviewed. Dose reduction techniques were achieved by using automatic exposure control and/or adjustment of mA and/or kV according to patient size and/or use of iterative reconstruction technique. Findings: Head CT: There is no intracranial hemorrhage, mass effect, or midline shift. Jimenez/white matter differentiation in both cerebral hemispheres is preserved. Ventricles are proportionate to the cerebral sulci. Head CTA demonstrates no aneurysm or stenosis of the major intracranial arteries. Neck CTA demonstrates no stenosis of the major cervical arteries. The origins of the great vessels from the aortic arch are patent. No mass is noted within the visualized portions of the cervical soft tissues or lung apices. Impression: 1. Head CTA demonstrates no aneurysm or stenosis of the major intracranial arteries, 2. Neck CTA demonstrates no stenosis of the major cervical arteries. 3. No intracranial hemorrhage on the noncontrast head CT. Electronically signed by Madhu Rogers 06-06-2025 7:34 PM Medications Administered Home Medications buspirone 10 mg tablet 15 mg PO BID 05/17/23 [History Confirmed 06/06/25] famotidine 20 mg tablet (Pepcid) 20 mg PO QAM 05/17/23 [History Confirmed 06/06/25] cholecalciferol (vitamin D3) 50 mcg (2,000 unit) capsule 50 mcg PO QAM 05/25/23 [History Confirmed 06/06/25] magnesium oxide 400 mg PO QAM 05/25/23 [History Confirmed 06/06/25] mecobalamin (vitamin B12) 1,000 mcg disintegrating tablet,sublingual 1,000 mcg sublingual DAILY 05/25/23 [History Confirmed 06/06/25] rimegepant 75 mg disintegrating tablet (Nurtec ODT) 75 mg PO ONCE PRN Migraine Headache 04/23/24 [History Confirmed 06/06/25] aspirin 81 mg capsule 81 mg PO DAILY 05/09/24 [History Confirmed 06/06/25] rabeprazole 20 mg tablet,delayed release 20 mg PO QAM 05/09/24 [History Confirmed 06/06/25] inhalational spacing device #1 ea 06/14/24 [Rx Confirmed 06/06/25] mirabegron 50 mg tablet,extended release 24 hr (Myrbetriq) 50 mg PO DAILY #90 tabs 08/14/24 [Rx Confirmed 06/06/25] Oxygen Home #1 ea 11/16/24 [Rx Confirmed 06/06/25] albuterol sulfate 90 mcg/actuation aerosol inhaler 2 inh inhalation Q4H PRN Wheezing #3 Inhalers 12/10/24 [Rx Confirmed 06/06/25] budesonide-formoterol HFA 160 mcg-4.5 mcg/actuation aerosol inhaler (Symbicort) 2 puff inhalation BID #10.2 grams 12/10/24 [Rx Confirmed 06/06/25] epinephrine 0.3 mg/0.3 mL injection, auto-injector 0.3 mg (0.3 mL) IM Q15M PRN anaphylaxis #2 ea 12/10/24 [Rx Confirmed 06/06/25] montelukast 10 mg tablet (Singulair) 10 mg PO QAM #30 tabs 04/28/25 [Rx Confirmed 06/06/25] brivaracetam 50 mg tablet (Briviact) 50 mg PO BID 30 days #60 tabs 01/29/25 [Rx Confirmed 06/06/25] albuterol sulfate 2.5 mg/3 mL (0.083 %) solution for nebulization 2.5 mg (3 mL) continuous nebulization Q4H PRN Shortness Of Breath Or Wheezing #90 mL 02/21/25 [Rx Confirmed 06/06/25] tiotropium bromide 2.5 mcg/actuation mist for inhalation (Spiriva Respimat) 2 puff inhalation DAILY #4 grams 02/21/25 [Rx Confirmed 06/06/25] lorazepam 0.5 mg tablet 0.5 mg PO .COMPLEX PRN seizure activity #5 tabs 05/27/25 [Rx Confirmed 06/04/25] meloxicam 7.5 mg tablet 7.5 - 15 mg (1 - 2 x 7.5 mg) PO DAILY #30 tabs 05/27/25 [Rx Confirmed 06/04/25] clobetasol 0.05 % topical ointment 1 applic topical 1XD 06/06/25 [History Confirmed 06/06/25] fluoxetine 10 mg capsule 10 mg PO DAILY 06/06/25 [History Confirmed 06/06/25] levothyroxine 137 mcg tablet 125 mcg PO DAILY 06/06/25 [History Confirmed 06/06/25] magnesium oxide 400 mg (241.3 mg magnesium) tablet 400 mg PO DAILY 06/06/25 [History Confirmed 06/06/25] ondansetron 4 mg disintegrating tablet 4 mg PO Q8H PRN Nausea And Vomiting 06/06/25 [History Confirmed 06/06/25] simethicone 80 mg tablet 80 mg PO HS 06/06/25 [History Confirmed 06/06/25] Active Medications Albuterol (Albuterol Hfa 8 Gm Inhaler) 2 puffs INH Q4H PRN PRN Reason: Wheezing Stop: 07/06/25 20:48 Albuterol (Albuterol 0.083% Nebu Soln 3 Ml Vial) 2.5 mg INH Q4H PRN; Protocol PRN Reason: Shortness Of Breath Or Wheezing Stop: 07/06/25 20:53 Aspirin (No Aspirin Within 24hrs Of Thrombolytic-Stroke) 1 each PO UD [facility] Stop: 06/07/25 20:14 Budesonide/Formoterol Fumarate (Budesonide/Formoterol Fumarate 160/4.5 60 Puffs/Inhaler) 2 puffs INH BID [facility]; Protocol Stop: 07/06/25 20:59 Buspirone HCl (Buspirone 15 Mg Tab) 15 mg PO BID [facility] Stop: 07/06/25 20:59 Famotidine (Famotidine 20 Mg Tab) 20 mg PO QAM [facility] Stop: 07/07/25 08:59 Fluoxetine HCl (Fluoxetine Hcl 10 Mg Cap) 10 mg PO DAILY [facility] Stop: 07/07/25 08:59 Levothyroxine Sodium (Levothyroxine Sodium 125 Mcg Tablet) 125 mcg PO DAILY [facility] Stop: 07/07/25 08:59 Montelukast Sodium (Montelukast Sodium 10 Mg Tablet) 10 mg PO QAM [facility] Stop: 07/07/25 08:59 Non-Formulary Medication (Brivaracetam [Briviact]) 50 mg PO BID [facility] Stop: 07/06/25 20:59 Non-Formulary Medication (Magnesium Oxide) 400 mg PO QAM [facility] Stop: 07/07/25 08:59 Non-Formulary Medication (Mirabegron [Myrbetriq]) 50 mg PO DAILY [facility] Stop: 07/07/25 08:59 Non-Formulary Medication (Rabeprazole) 20 mg PO QAM [facility] Stop: 07/07/25 08:59 Non-Formulary Medication (Rimegepant [Nurtec Odt]) 75 mg PO ONCE PRN PRN Reason: Migraine Headache Non-Formulary Medication (Simethicone) 80 mg PO HS [facility] Stop: 07/06/25 20:59 Non-Formulary Medication (Tiotropium Welling [Spiriva Respimat]) 2 puffs INH DAILY [facility] Stop: 07/07/25 08:59 Ondansetron HCl (Ondansetron 4 Mg Od Tab) 4 mg PO Q8H PRN PRN Reason: Nausea And Vomiting Stop: 07/06/25 20:48 ECG Additional Comments: Normal sinus rhythm Normal ECG When compared with ECG 11:04, No significant change was found Coding Level of Care Code 06859 CRITICAL CARE 30-74M Diagnoses Stroke-like symptoms R29.90 Seizures R56.9 Nocturnal hypoxia G47.34 Morbid obesity E66.01 Anxiety F41.9 Hypothyroidism E03.9
[2025-06-06] MEDS ORDERED: POLYETHYLENE (MIRALAX) 17 GM PACK PO PRN (21:52)
[2025-06-06] MEDS ORDERED: ONDANSETRON INJ 2 MG/ML 2 ML VIAL IV PRN (21:52)
[2025-06-06] MEDS ORDERED: ACETAMINOPHEN 325 MG TAB PO PRN (21:52)
[2025-06-06] MEDS ORDERED: MELATONIN 3 MG TAB PO PRN (21:52)
[2025-06-06] MEDS ORDERED: DOCUSATE SODIUM 100 MG CAP PO PRN (21:52)
[2025-06-06] MEDS ORDERED: GLUCOSE 40% GEL 15 GM TUBE PO PRN (21:58)
[2025-06-06] MEDS ORDERED: CARBOHYDRATES FOR HYPOGLYCEMIA PO PRN (21:58)
[2025-06-06] MEDS ORDERED: GLUCOSE 10 TAB/TUBE PO PRN (21:58)
[2025-06-06] MEDS ORDERED: GLUCAGON FOR INJ 1 MG VIAL SQ PRN (21:58)
[2025-06-06] MEDS ORDERED: DEXTROSE 50% 50 ML SYRINGE IV PRN (21:58)
[2025-06-06] MEDS ORDERED: PHARMACIST DISCHARGE MED REC CONSULT PRN (21:59)
[2025-06-06] MEDS ORDERED: LABETALOL HCL IV 5 MG/ML 20ML IV PRN (21:59)
[2025-06-06] MEDS: SIMETHICONE 80 MG CHEW PO SCH (22:28)
[2025-06-06] MEDS: busPIRone 15 MG TAB PO SCH (22:28)
[2025-06-06] MEDS ORDERED: RIMEGEPANT 75 MG PO PRN (23:19)
--- NOTE | 2025-06-07 | Magnetic Resonance Report ---
Exam(s): MRI HEAD Without Contrast EXAM: MR Head Without Intravenous Contrast CLINICAL HISTORY: Reason for exam: eval for cerebral ischemia. STROKE: Stroke Notes: stroke like symptoms TECHNIQUE: Magnetic resonance images of the head/brain without intravenous contrast in multiple planes. COMPARISON: CT scan dated 06/06/2025. FINDINGS: Brain: No acute intracranial hemorrhage or infarct.. Ventricles: Unremarkable. No ventriculomegaly. Sinuses: Unremarkable as visualized. No acute sinusitis. Mastoid air cells: Unremarkable as visualized. No mastoid effusion. Orbits: Unremarkable as visualized. IMPRESSION: Unremarkable noncontrast MRI of the brain. Electronically signed by: Steven Francisco MD 06/06/25 23:58 PM
--- NOTE | 2025-06-07 01:50 | Billing Data ---
Date of Service June 07, 2025 Coding Level of Care Code 53731 CRITICAL CARE
[2025-06-07 05:15] LABS: Hematocrit (blood only) 39.1 % (37.0-47.0); Hemoglobin 13.0 g/dl (12.0-16.0); Immature Granulocytes # (auto) 0.04 K/uL (0.01-0.20); Immature Granulocytes % (auto) 0.4 %; Mean Corpuscular Hemoglobin 30.4 pg (25.0-34.0); Mean Corpuscular Volume 91.4 fL (80.0-100.0); Platelet Count 282 K/uL (130-400); RDW Standard Deviation 44.9 fL (36.4-46.3); Red Blood Count 4.28 M/uL (4.20-5.40); White Blood Count 9.45 K/ul (4.8-10.8)
[2025-06-07 05:31] LABS: Alanine Aminotransferase 26.0 U/L (7-52); Albumin Globulin Ratio 1.1 (0.9-2); Albumin Level 3.4 gm/dl (3.4-5.0); Alkaline Phosphatase 48.0 U/L (34-104); Anion Gap 9.0 (3-11); Bilirubin,Total 0.4 mg/dl (0.2-1.0); Blood Urea Nitrogen 13.0 mg/dl (6-23); Calcium 8.8 mg/dl (8.6-10.3); Carbon Dioxide 25.0 mmol/L (21-32); Chloride 106.0 mmol/L (98-107); Cholesterol 139.0 mg/dl (0-200); Creatinine Clr Calc Pharmacy 134.5 ml/min; Globulin 3.0 gm/dl (2.5-4.0); Glucose 90.0 mg/dl (70-99(Fasting)); HDL Cholesterol 29.0 mg/dl; Magnesium 1.9 mg/dl (1.7-2.4); Potassium 3.8 mmol/L (3.5-5.1); Sodium 140.0 mmol/L (136-145); Total Protein 6.4 gm/dl (6.0-8.3); Triglycerides 117.0 mg/dl (0-150)
[2025-06-07 05:45] LABS: Thyroid Stimulating Hormone 45.879 uIu/ml (0.300-4.500)
[2025-06-07 06:21] LABS: T4 Free Thyroxine 0.63 ng/dl (0.61-1.60)
[2025-06-07] MEDS: LEVOTHYROXINE SODIUM 125 MCG TABLET PO SCH (06:28)
[2025-06-07 07:44] LABS: Hemoglobin A1C 5.1 % (4.5-5.6)
--- NOTE | 2025-06-07 08:29 | XCELERA ---
[id number]
--- NOTE | 2025-06-07 08:39 | Neurology Consultation ---
Date of Consultation June 07, 2025 Assessment & Plan (1) Unresponsive episode: (2) Left-sided weakness: (3) Epilepsy: (4) Migraine: (5) Cervical radiculopathy: Plan This patient had an unresponsive episode June 06 with left-sided weakness, posturing/stiffening of the left upper extremity, urinary incontinence, some left-sided dysesthesias, and confusion postevent. This event was consistent with a complex partial seizure with postictal phenomenon (Pedro's paralysis and postevent confusion). There was no evidence for cerebrovascular disease in this patient via CT angiography of the head and neck or MRI of the brain. This is true even despite her history of migraine headaches. Nevertheless, the patient did get TNK yesterday. The patient carries a history of epilepsy (last known event 05/2023) as well as PNES. Her mood seems to be stable. Patient carries a history of migraine headaches but these are improved and stable The patient has an ongoing history of left C6 cervical radiculopathy (proven by EMG November 2024). This may add to some of her left upper extremity symptoms. Recommendations: 1. Cover patient with levetiracetam 500 mg p.o. twice a day as Briviact is not formulary. 2. I will increase Briviact to 50 mg in the morning and 100 mg in the evening for 1 week then increase to 100 mg twice a day (this would be maximum dose). 3. TSH elevatedadjust levothyroxine 4. Awaiting echocardiogram 5. Control blood pressure as you are doing aiming for mean arterial pressure of 95-100. 6. Although I have no issue with 81 mg aspirin tablet daily, there really is no indication for antiplatelet medication or anticoagulation in this patient, at this time. 6. CT scan of the head 24 hours after TNK. 7. I see no indication at this time for an EEG, at this time, as this will not change our treatment Overall, I spent a total of 75 minutes with this case including review of records, review of MRI and CT films, rec evaluation of patient, report generation, and discussion of the case with the patient and RN at bedside, mother via telephone, and Dr. Farr including differential diagnosis and treatment options. History of Present Illness Reason for Consultation: Patient is a 29-year-old, who was asked to see at the request of Johnnie RAUSCH for neurologic evaluation regarding stroke versus seizure. Requesting Physician: MIRACLE Acevedo Attending Physician: Virgil Farr DO History of Present Illness This patient has had intermittent seizures since age 16 years old. She carries a diagnosis of convulsive seizures, absence seizure's, and psychogenic nonepileptic seizures (PNES). Patient has been on a variety of medications over the years. In May 2023 she had a significant seizure secondary to sleep deprivation. At that time she was hospitalized and an EEG was normal awake and asleep. MRI of the brain with and without contrast was normal at that time as well. He was on a combination of lamotrigine and levetiracetam. She is followed in neurology clinic and last seen January 29, 2025. At that time because of side effects to her medications she was taken off lamotrigine and levetiracetam and initiated on Briviact 50 mg twice a day. She has done well since with no further events (until yesterday). Therefore, she has been essentially seizure-free despite medication changes in almost 2 years. She tolerates Briviact well without side effects although it can make her "a little bit tired". The patient has been on buspirone 15 mg twice a day and fluoxetine 10 mg a day for anxiety and mood and. 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 Patient has hypothyroidism. Patient has a history of migraine headaches and these have been stable. Nurtec as needed helps. The patient was in her usual state of health when on June 03 she woke up at 730 as usual feeling well. She ate and slept well the night before. During the day she went to go get allergy shots in [place] and was out at 4 PM in [place] for her son's doctor's appointment. She ate dinner (a hoagie) between 530 and 6 PM. The patient's recollection events is poor and I spoke with the patient's mother via telephone who was present for the entire episode. According to the patient's mother, "a couple of minutes after 6 in the evening" the patient stated to her mother that she "did not feel well". The mother noted that the patient's left face was droopy and she was not moving her left arm and leg as well as the right. The hand and arm stiffened for a couple of minutes and the fingers twisted. The patient was not responsive. Apparently she had incont inence of urine. She had no jerking of the limbs. Was not responsive for several minutes but by the time the EMS arrived (the mother called 911 immediately after seeing the facial droop) the patient started to wake up. Her speech was slurred and she was confused. The patient herself has no recall of the events at home and does not remember the ambulance ride over. She remembers being in the ER. Apparently, after the spell the patient did complain of a headache and some nausea. She vomited once at home. Patient arrived to the ER at 1922 with a temperature of 37.2, pulse 93 and regular, respiratory rate 19, blood pressure 155/93 and O2 saturation 98%. On examination she was described as weak in her left arm and leg and the patient complained of a bifrontal headache and nausea. The patient was given Zofran and labetalol. After consultation because of the possibility of this being a stroke, she was given TNK. The patient did not make improvements immediately but by 20 to 30 minutes apparently she was talking better and had more movement of her left arm and leg. CBC, CMP, urinalysis, and a test were unremarkable. CT scan of the head was unremarkable CT angiography of the head and neck showed no vascular stenoses or anomalies. MRI of the brain without contrast showed no acute or chronic changes. There was no new stroke and no old small vessel ischemic disease. Currently the patient feels much better. She has no headache or nausea. She has no numbness or dysesthesias except a tiny patch in the left dorsal forearm. She has a little bit of weakness in her left leg but feels that her arm is improved. She has no other pain. Blood pressure this morning was 114/84 and then later 156/94 and she is afebrile. Pulse has been in the 50-60s. Echocardiogram is pending. This morning CBC was unremarkable. CHEM profile was normal as was liver profile. Total cholesterol was 139 and triglycerides 117. TSH was markedly elevated at 45.8 and her free T4 was low normal at 0.63. Allergies Allergy/AdvReac Type Severity Reaction Status Date / Time fish derived Allergy Severe Anaphylaxis Verified 06/04/25 14:48 hydromorphone Allergy Severe "Respirations Verified 06/04/25 14:48 stopped" peanut Allergy Severe All nuts- Verified 06/04/25 14:48 hives, SOB amoxicillin Allergy Intermediate Rash Verified 06/04/25 14:48 morphine Allergy Intermediate Hives Verified 06/04/25 14:48 oxycodone Allergy Intermediate Hives Verified 06/04/25 14:48 levofloxacin AdvReac Severe Seizure Verified 06/04/25 14:48 adhesive AdvReac Mild Rash Verified 06/04/25 14:48 Home Medications Medication Instructions Recorded Confirmed Type buspirone 10 mg tablet 15 mg PO BID 05/17/23 06/06/25 History famotidine 20 mg tablet (Pepcid) 20 mg PO QAM 05/17/23 06/06/25 History cholecalciferol (vitamin D3) 50 50 mcg PO QAM 05/25/23 06/06/25 History mcg (2,000 unit) capsule magnesium oxide 400 mg PO QAM 05/25/23 06/06/25 History mecobalamin (vitamin B12) 1,000 1,000 mcg sublingual DAILY 05/25/23 06/06/25 History mcg disintegrating tablet,sublingual rimegepant 75 mg disintegrating 75 mg PO ONCE PRN Migraine Headache 04/23/24 06/06/25 History tablet (Nurtec ODT) aspirin 81 mg capsule 81 mg PO DAILY 05/09/24 06/06/25 History rabeprazole 20 mg tablet,delayed 20 mg PO QAM 05/09/24 06/06/25 History release inhalational spacing device #1 ea 06/14/24 06/06/25 Rx mirabegron 50 mg tablet,extended 50 mg PO DAILY #90 tabs 08/14/24 06/06/25 Rx release 24 hr (Myrbetriq) Oxygen Home #1 ea 11/16/24 06/06/25 Rx albuterol sulfate 90 mcg/actuation 2 inh inhalation Q4H PRN Wheezing 12/10/24 06/06/25 Rx aerosol inhaler #3 Inhalers budesonide-formoterol HFA 160 2 puff inhalation BID #10.2 grams 12/10/24 06/06/25 Rx mcg-4.5 mcg/actuation aerosol inhaler (Symbicort) epinephrine 0.3 mg/0.3 mL 0.3 mg (0.3 mL) IM Q15M PRN 12/10/24 06/06/25 Rx injection, auto-injector anaphylaxis #2 ea montelukast 10 mg tablet 10 mg PO QAM #30 tabs 12/10/24 06/06/25 Rx (Singulair) brivaracetam 50 mg tablet 50 mg PO BID 30 days #60 tabs 01/29/25 06/06/25 Rx (Briviact) albuterol sulfate 2.5 mg/3 mL 2.5 mg (3 mL) continuous 02/21/25 06/06/25 Rx (0.083 %) solution for nebulization nebulization Q4H PRN Shortness Of Breath Or Wheezing #90 mL tiotropium bromide 2.5 2 puff inhalation DAILY #4 grams 02/21/25 06/06/25 Rx mcg/actuation mist for inhalation (Spiriva Respimat) lorazepam 0.5 mg tablet 0.5 mg PO .COMPLEX PRN seizure 05/27/25 06/04/25 Rx activity #5 tabs meloxicam 7.5 mg tablet 7.5 - 15 mg (1 - 2 x 7.5 mg) PO 05/27/25 06/04/25 Rx DAILY #30 tabs clobetasol 0.05 % topical ointment 1 applic topical 1XD 06/06/25 06/06/25 History fluoxetine 10 mg capsule 10 mg PO DAILY 06/06/25 06/06/25 History levothyroxine 137 mcg tablet 125 mcg PO DAILY 06/06/25 06/06/25 History magnesium oxide 400 mg (241.3 mg 400 mg PO DAILY 06/06/25 06/06/25 History magnesium) tablet ondansetron 4 mg disintegrating 4 mg PO Q8H PRN Nausea And Vomiting 06/06/25 06/06/25 History tablet simethicone 80 mg tablet 80 mg PO HS 06/06/25 06/06/25 History Patient History Medical History History of pneumonia Depressed Arthritis History of kidney stones History of skin cancer on head. Saw Minnie No Hearing deficit PTSD (post-traumatic stress disorder) RLS (restless legs syndrome) Hx of deep venous thrombosis at age 18>was on blood thinner for short time Migraine Bronchitis recent dx>still on steroids Asthma last used rescue inhaler>"been a while" TIA (transient ischemic attack) last event>May 17, 2023 during seizure (reason for daily asa) Epilepsy - Also absence and pseudoseizures - Last episode [facility] 05/17/23 (due to sleep deprivation- admitted to [facility])- seen by neuro- recommended continued current meds at same doses (prior to this- no seizure since 2019) - 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 Samson S/P laparoscopic hysterectomy [facility]-BS Nausea and vomiting after administration of anesthetic agent X 1 History of myringotomy History of cystoscopy for stones S/P removal of ovarian cyst laparoscopic, before hyst S/P laparoscopic cholecystectomy H/O foot surgery left bunion repair H/O esophagogastroduodenoscopy H/O colonoscopy Status post Mohs surgery Family History Mother Family history of diabetes mellitus Depression Diabetes Gall bladder disease Grandmother (Maternal) , 72 Diabetes Family history of diabetes mellitus Dyslipidemia Breast cancer Myocardial infarction Father Cancer Aunt , 54 Breast cancer Colorectal cancer Other No family history of adverse response to anesthesia Denies family history of Ovarian cancer Prostate cancer Social History Smoking Status: Former smoker Tobacco Type: Cigarettes Age Started Using Tobacco: 18; Age Quit Using Tobacco: 29; packs per day: 0.5; Cigarettes Per Day: less than 1/2 ppd > advised npo status; Smoking End Date: July 2024; Second Hand Exposure: No; Do You Dip or Chew Tobacco: No; Hx Alcohol Use: Yes Alcohol type: wine Hx Substance Use: No Preferred Language: Azeri Communication Ability: Effective Visual Impairment: No Limitations Hearing Ability: Use of Hearing Aid Rail Splitter Required: No Beliefs That Will Affect Care: None marital status: Single Current Living Situation: Family current occupational status: disabled 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 How many Children do You have: 1 Other Information That Helps Us Care for You: No Feels Safe at Home: Yes Safety Concerns: Feels Safe At This Time Childhood Exposure to Second-Hand Smoke: Yes Diet: regular caffeine: No during the past year weight has: remained stable Dental Care, Regularly: No Physical Activity Frequency: Other Physical Activity Frequency Comment: exercise limited by physical condition Seatbelt Use: always Sunscreen Use: Yes Gender Identity: Female Assistive Devices: Cane, Denture - Upper, Denture - Lower, Glasses, Hearing Aid - Bilateral and Oxygen - at Night Review of Systems Constitutional: no fever, no fatigue and no weakness Eyes: no diplopia, no eye pain and no worsening vision Ear, Nose, Mouth, Throat: no ear pain, no tinnitus, no hearing loss, no dizziness, no snoring, no hoarseness and no dysphagia Respiratory: no cough and no dyspnea Cardiovascular: no chest pain, no palpitations and no lightheadedness Gastrointestinal: no abdominal pain, no nausea and no vomiting Genitourinary: no dysuria, no urinary frequency and no urinary incontinence Musculoskeletal: + back pain and + neck pain; no radicula r pain, no joint pain and no myalgia Integumentary: no rash and no lesions Neurologic: + localized weakness and + numbness; no gait abnormality, no generalized weakness, no tingling, no tremor(s), no abnormal movements, no headache(s), no abnormal speech, no confusion and no memory loss Psychiatric: no depression, no irritability, no anxiety, no difficulty concentrating, no confusion and no hallucinations Endocrine: no fatigue and no flushing Hematologic / Lymphatic: no easy bleeding and no easy bruising Allergy / Immunological: no urticaria and no problem reported Exam (Neuro) Physical Exam: The patient is right-handed. The patient is awake, alert, and attentive. Speech is normal without any aphasia or dysarthria. Mentation and thought processes are intact, with full orientation and normal fund of knowledge. Mood and affect are normal and appropriate. Appearance and grooming are normal. Short and long-term memory are intact to conversation. Pupils are 4 mm bilaterally and reactive to light. Extraocular eye muscles are intact without nystagmus. Visual acuity and visual spencer seem normal grossly to confrontation. There are no deficits to sensation in the face in all 3 distributions of the fifth cranial nerve bilaterally. Corneal reflexes are positive bilaterally. Facial strength and symmetry was normal bilaterally. Hearing seems intact grossly to voice and finger rub bilaterally. Palate moves well without asymmetry. There is normal sternocleidomastoid and trapezius strength bilaterally. Tongue is midline with good strength bilaterally. There is no facial droop. Neck has a full range of motion without discomfort. Cervical, thoracic, and lumbar spine are mildly, nonspecifically tender to palpation diffusely. Gait was not tested but stands sitting up in bed is normal. With outstretched arms there is no obvious drift. She has a little bit of weakness in the left shoulder which is old (rotator cuff). There are no resting, postural, or action tremors. There is no ataxia with finger to nose testing. There is no ataxia with andh-hc-sivr testing. There is good facility in the hands. No other abnormal involuntary movements are noted. Motor strength is 5/5 diffusely in the arms bilaterally including deltoids, biceps, triceps, brachioradialis, wrist flexors and extensors, sales management intern, and intrinsic hand muscles. Motor strength is 5/5 diffusely in the right lower EXTR including hip flexors, quadriceps, hamstrings, gastrocnemius, tibialis anterior, tibialis posterior, and Peroneii muscles bilaterally. Motor strength is 4/5 in the left lower extremity, including hip flexor, quadriceps, tibialis anterior and toe extensors. Hamstring muscles and gastrocnemius were 5/5. The limbs have good tone without rigidity or spasticity. There is no atrophy noted in the muscles. Muscle bulk is normal, there is no tenderness to palpation, no myotonia to percussion, and no fasciculations seen. Sensory examination is intact to touch and pin throughout all 4 limbs diffusely. There was no actual area of decreased sensation to pinprick in the left face, arm, or leg. Reflexes are 2/4 in the biceps, triceps, brachioradialis, and quadriceps tendons bilaterally. Achilles tendon reflexes are 1/4 bilaterally. Toes are downgoing with plantar stimulation bilaterally. Peripheral pulses are present and of normal quality distally in all 4 limbs. There is no peripheral edema noted in the limbs. Results & Data Vital Signs (Past 12 Hours) Vital Signs Temp Pulse Pulse Resp BP BP Pulse Ox 06/07/25 07:20 62 18 156/94 H 95 06/07/25 06:55 59 L 06/07/25 06:21 56 L 13 114/84 96 06/07/25 05:22 50 L 12 119/57 L 98 06/07/25 04:22 52 L 17 126/79 98 06/07/25 03:52 53 L 16 115/75 97 06/07/25 03:39 36.4 C L 06/07/25 03:22 67 15 140/97 95 06/07/25 02:52 68 17 149/103 H 94 06/07/25 02:22 63 16 118/79 94 06/07/25 01:52 62 16 117/84 95 06/07/25 01:22 58 L 20 124/87 95 06/07/25 00:52 74 23 130/82 94 06/07/25 00:22 69 18 125/77 95 06/06/25 23:59 36.9 C 06/06/25 23:52 65 24 110/64 95 06/06/25 22:52 70 19 129/99 98 06/06/25 22:22 78 23 122/89 98 06/06/25 22:07 80 24 155/95 H 96 06/06/25 21:55 76 06/06/25 21:52 77 23 112/74 98 06/06/25 21:45 36.6 C 78 18 112/74 98 06/06/25 21:38 06/06/25 21:35 88 17 121/87 97 06/06/25 21:20 85 20 108/82 94 06/06/25 21:05 79 17 112/76 96 06/06/25 21:01 100/83 06/06/25 20:50 88 17 144/116 H 96 06/06/25 20:35 72 15 160/87 H 96 06/06/25 20:35 80 17 96 06/06/25 20:30 88 15 149/92 H 95 06/06/25 20:28 83 158/95 H 06/06/25 20:25 82 22 158/95 H 98 06/06/25 20:21 88 20 168/88 H 98 06/06/25 20:20 80 17 160/87 H 98 06/06/25 20:15 85 20 162/112 H 98 O2 Del Method O2 Flow Rate 06/07/25 07:20 Room Air 06/07/25 06:55 06/07/25 06:21 Nasal Cannula 2 06/07/25 05:22 Nasal Cannula 2 06/07/25 04:22 Nasal Cannula 2 06/07/25 03:52 Nasal Cannula 2 06/07/25 03:39 06/07/25 03:22 Nasal Cannula 2 06/07/25 02:52 Nasal Cannula 2 06/07/25 02:22 Nasal Cannula 2 06/07/25 01:52 Nasal Cannula 2 06/07/25 01:22 Nasal Cannula 2 06/07/25 00:52 Nasal Cannula 2 06/07/25 00:22 Nasal Cannula 06/06/25 23:59 06/06/25 23:52 Room Air 06/06/25 22:52 Nasal Cannula 2 06/06/25 22:22 Room Air 06/06/25 22:07 Room Air 06/06/25 21:55 06/06/25 21:52 Room Air 06/06/25 21:45 Room Air 06/06/25 21:38 Room Air 06/06/25 21:35 Room Air 06/06/25 21:20 Room Air 06/06/25 21:05 Room Air 06/06/25 21:01 06/06/25 20:50 Room Air 06/06/25 20:35 06/06/25 20:35 Room Air 06/06/25 20:30 06/06/25 20:28 06/06/25 20:25 06/06/25 20:21 Room Air 06/06/25 20:20 Room Air 06/06/25 20:15 PG Care Time/CCT Total # of Minutes Spent Total Time Spent with Patient: Total time spent is greater than 50% in coordination of care (as documented) at patient's floor/unit and/or counseling patient: Coding Level of Care Code 96076 INT INP/OBS CARE 3/75MIN Diagnoses Unresponsive episode R40.4 Left-sided weakness R53.1 Epilepsy G40.909 Migraine G43.909 Cervical radiculopathy M54.12 Time Spent (min) 75
--- NOTE | 2025-06-07 08:54 | Neurology Consultation ---
Date of Consultation June 07, 2025 Telehealth Consultation Telehealth Information Telehealth Information: I performed this visit using a real-time telehealth connection between my location and the patients originating location ([facility]). After connecting through interactive tele-video, patient was identified by name and date of and/or wristband check.Patient (or authorized healthcare floor representative) was informed that this was a telemedicine visit and it was being conducted confidentially over secure lines. My office door was closed and no one else was present in the room with me.Patient (or authorized healthcare floor representative) provided consent to proceed with the visit, expressed an understanding of privacy and security of the telemedicine visit, and gave permission to have a hospital floor representative in the room in order to assist with the visit and to conduct portions of the visit, as needed. I informed the patient (or authorized healthcare floor representative) that I reviewed their record and presented the opportunity for them to ask any questions regarding the visit today. The patient agreed to participate. History of Present Illness Attending Physician: Virgil Farr DO Allergies Allergy/AdvReac Type Severity Reaction Status Date / Time fish derived Allergy Severe Anaphylaxis Verified 06/04/25 14:48 hydromorphone Allergy Severe "Respirations Verified 06/04/25 14:48 stopped" peanut Allergy Severe All nuts- Verified 06/04/25 14:48 hives, SOB amoxicillin Allergy Intermediate Rash Verified 06/04/25 14:48 morphine Allergy Intermediate Hives Verified 06/04/25 14:48 oxycodone Allergy Intermediate Hives Verified 06/04/25 14:48 levofloxacin AdvReac Severe Seizure Verified 06/04/25 14:48 adhesive AdvReac Mild Rash Verified 06/04/25 14:48 Home Medications Medication Instructions Recorded Confirmed Type buspirone 10 mg tablet 15 mg PO BID 05/17/23 06/06/25 History famotidine 20 mg tablet (Pepcid) 20 mg PO QAM 05/17/23 06/06/25 History cholecalciferol (vitamin D3) 50 50 mcg PO QAM 05/25/23 06/06/25 History mcg (2,000 unit) capsule magnesium oxide 400 mg PO QAM 05/25/23 06/06/25 History mecobalamin (vitamin B12) 1,000 1,000 mcg sublingual DAILY 05/25/23 06/06/25 History mcg disintegrating tablet,sublingual rimegepant 75 mg disintegrating 75 mg PO ONCE PRN Migraine Headache 04/23/24 06/06/25 History tablet (Nurtec ODT) aspirin 81 mg capsule 81 mg PO DAILY 05/09/24 06/06/25 History rabeprazole 20 mg tablet,delayed 20 mg PO QAM 05/09/24 06/06/25 History release inhalational spacing device #1 ea 06/14/24 06/06/25 Rx mirabegron 50 mg tablet,extended 50 mg PO DAILY #90 tabs 08/14/24 06/06/25 Rx release 24 hr (Myrbetriq) Oxygen Home #1 ea 11/16/24 06/06/25 Rx albuterol sulfate 90 mcg/actuation 2 inh inhalation Q4H PRN Wheezing 12/10/24 06/06/25 Rx aerosol inhaler #3 Inhalers budesonide-formoterol HFA 160 2 puff inhalation BID #10.2 grams 12/10/24 06/06/25 Rx mcg-4.5 mcg/actuation aerosol inhaler (Symbicort) epinephrine 0.3 mg/0.3 mL 0.3 mg (0.3 mL) IM Q15M PRN 12/10/24 06/06/25 Rx injection, auto-injector anaphylaxis #2 ea montelukast 10 mg tablet 10 mg PO QAM #30 tabs 12/10/24 06/06/25 Rx (Singulair) brivaracetam 50 mg tablet 50 mg PO BID 30 days #60 tabs 01/29/25 06/06/25 Rx (Briviact) albuterol sulfate 2.5 mg/3 mL 2.5 mg (3 mL) continuous 02/21/25 06/06/25 Rx (0.083 %) solution for nebulization nebulization Q4H PRN Shortness Of Breath Or Wheezing #90 mL tiotropium bromide 2.5 2 puff inhalation DAILY #4 grams 02/21/25 06/06/25 Rx mcg/actuation mist for inhalation (Spiriva Respimat) lorazepam 0.5 mg tablet 0.5 mg PO .COMPLEX PRN seizure 05/27/25 06/04/25 Rx activity #5 tabs meloxicam 7.5 mg tablet 7.5 - 15 mg (1 - 2 x 7.5 mg) PO 05/27/25 06/04/25 Rx DAILY #30 tabs clobetasol 0.05 % topical ointment 1 applic topical 1XD 06/06/25 06/06/25 History fluoxetine 10 mg capsule 10 mg PO DAILY 06/06/25 06/06/25 History levothyroxine 137 mcg tablet 125 mcg PO DAILY 06/06/25 06/06/25 History magnesium oxide 400 mg (241.3 mg 400 mg PO DAILY 06/06/25 06/06/25 History magnesium) tablet ondansetron 4 mg disintegrating 4 mg PO Q8H PRN Nausea And Vomiting 06/06/25 06/06/25 History tablet simethicone 80 mg tablet 80 mg PO HS 06/06/25 06/06/25 History Patient History Medical History History of pneumonia Depressed Arthritis History of kidney stones History of skin cancer on head. Saw Minnie No Hearing deficit PTSD (post-traumatic stress disorder) RLS (restless legs syndrome) Hx of deep venous thrombosis at age 18>was on blood thinner for short time Migraine Bronchitis recent dx>still on steroids Asthma last used rescue inhaler>"been a while" TIA (transient ischemic attack) last event>May 17, 2023 during seizure (reason for daily asa) Epilepsy - Also absence and pseudoseizures - Last episode [facility] 05/17/23 (due to sleep deprivation- admitted to [facility])- seen by neuro- recommended continued current meds at same doses (prior to this- no seizure since 2019) - 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 Samson S/P laparoscopic hysterectomy TL-BS Nausea and vomiting after administration of anesthetic agent X 1 History of myringotomy History of cystoscopy for stones S/P removal of ovarian cyst laparoscopic, before hyst S/P laparoscopic cholecystectomy H/O foot surgery left bunion repair H/O esophagogastroduodenoscopy H/O colonoscopy Status post Mohs surgery Family History Mother Family history of diabetes mellitus Depression Diabetes Gall bladder disease Grandmother (Maternal) , 72 Diabetes Family history of diabetes mellitus Dyslipidemia Breast cancer Myocardial infarction Father Cancer Aunt , 54 Breast cancer Colorectal cancer Other No family history of adverse response to anesthesia Denies family history of Ovarian cancer Prostate cancer Social History Smoking Status: Former smoker Tobacco Type: Cigarettes Age Started Using Tobacco: 18; Age Quit Using Tobacco: 29; packs per day: 0.5; Cigarettes Per Day: less than 1/2 ppd > advised npo status; Smoking End Date: July 2024; Second Hand Exposure: No; Do You Dip or Chew Tobacco: No; Hx Alcohol Use: Yes Alcohol type: wine Hx Substance Use: No Preferred Language: Icelandic Communication Ability: Effective Visual Impairment: No Limitations Hearing Ability: Use of Hearing Aid Documentation Analyst Required: No Beliefs That Will Affect Care: None marital status: Single Current Living Situation: Family current occupational status: disabled 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 How many Children do You have: 1 Other Information That Helps Us Care for You: No Feels Safe at Home: Yes Safety Concerns: Feels Safe At This Time Childhood Exposure to Second-Hand Smoke: Yes Diet: regular caffeine: No during the past year weight has: remained stable Dental Care, Regularly: No Physical Activity Frequency: Other Physical Activity Frequency Comment: exercise limited by physical condition Seatbelt Use: always Sunscreen Use: Yes Gender Identity: Female Assistive Devices: Cane, Denture - Upper, Denture - Lower, Glasses, Hearing Aid - Bilateral and Oxygen - at Night Results & Data Vital Signs (Past 12 Hours) Vital Signs Temp Pulse Pulse Resp BP Pulse Ox O2 Del Method 06/07/25 08:21 36.5 C 62 18 145/90 H 94 Room Air 06/07/25 07:20 62 18 156/94 H 95 Room Air 06/07/25 06:55 59 L 06/07/25 06:21 56 L 13 114/84 96 Nasal Cannula 06/07/25 05:22 50 L 12 119/57 L 98 Nasal Cannula 06/07/25 04:22 52 L 17 126/79 98 Nasal Cannula 06/07/25 03:52 53 L 16 115/75 97 Nasal Cannula 06/07/25 03:39 36.4 C L 06/07/25 03:22 67 15 140/97 95 Nasal Cannula 06/07/25 02:52 68 17 149/103 H 94 Nasal Cannula 06/07/25 02:22 63 16 118/79 94 Nasal Cannula 06/07/25 01:52 62 16 117/84 95 Nasal Cannula 06/07/25 01:22 58 L 20 124/87 95 Nasal Cannula 06/07/25 00:52 74 23 130/82 94 Nasal Cannula 06/07/25 00:22 69 18 125/77 95 Nasal Cannula 06/06/25 23:59 36.9 C 06/06/25 23:52 65 24 110/64 95 Room Air 06/06/25 22:52 70 19 129/99 98 Nasal Cannula 06/06/25 22:22 78 23 122/89 98 Room Air 06/06/25 22:07 80 24 155/95 H 96 Room Air 06/06/25 21:55 76 06/06/25 21:52 77 23 112/74 98 Room Air 06/06/25 21:45 36.6 C 78 18 112/74 98 Room Air 06/06/25 21:38 Room Air 06/06/25 21:35 88 17 121/87 97 Room Air 06/06/25 21:20 85 20 108/82 94 Room Air 06/06/25 21:05 79 17 112/76 96 Room Air 06/06/25 21:01 100/83 O2 Flow Rate 06/07/25 08:21 06/07/25 07:20 06/07/25 06:55 06/07/25 06:21 2 06/07/25 05:22 2 06/07/25 04:22 2 06/07/25 03:52 2 06/07/25 03:39 06/07/25 03:22 2 06/07/25 02:52 2 06/07/25 02:22 2 06/07/25 01:52 2 06/07/25 01:22 2 06/07/25 00:52 2 06/07/25 00:22 06/06/25 23:59 06/06/25 23:52 06/06/25 22:52 2 06/06/25 22:22 06/06/25 22:07 06/06/25 21:55 06/06/25 21:52 06/06/25 21:45 06/06/25 21:38 06/06/25 21:35 06/06/25 21:20 06/06/25 21:05 06/06/25 21:01
[2025-06-07] MEDS: VIBEGRON 75 MG TAB PO SCH (08:57)
[2025-06-07] MEDS: MONTELUKAST SODIUM 10 MG TABLET PO SCH (08:57)
[2025-06-07] MEDS: FLUTICASONE/VILANTEROL 200/25MCG 14 PUFFS/INHALER INH SCH (08:57)
[2025-06-07] MEDS: FAMOTIDINE 20 MG TAB PO SCH (08:57)
[2025-06-07] MEDS: ATORVASTATIN 40 MG TAB PO SCH (08:57)
[2025-06-07] MEDS: levETIRAcetam 500 MG TAB PO SCH (08:59)
[2025-06-07] MEDS: MAGNESIUM OXIDE 400 MG TAB PO SCH (08:59)
[2025-06-07] MEDS: UMECLIDINIUM BROMIDE 62.5MCG/BLISTER 7 PUFFS/INHALER INH SCH (09:01)
--- NOTE | 2025-06-07 09:05 | Critical Care Progress Note ---
Date of Service June 07, 2025 Assessment & Plan (1) Stroke-like symptoms: (2) Seizures: (3) Nocturnal hypoxia: (4) Morbid obesity: (5) Anxiety: (6) Hypothyroidism: Plan Reason Critically Ill: 29 YOF presents with stroke like symptoms with complicating history of seizure disorder and migraine headaches, that remained with left sided weakness without improvement- and was deemed thrombolytic candidate by [facility] teleneurology. Patient received TNK at 2011. To the ICU for continued monitoring of symptoms and hemodynamics Neuro - Stroke like symptoms s/p thrombolytic administration. Hx: Seizure, Migraines, chronic neck and back pain - DDX: ischemic stroke vs. seizure with Pedro's paralysis vs. 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 family will bring in from home - Chronic pain- will hold her NSAID in setting of thrombolytic administration - Continue Cymbalta Cardiac - No acute needs - At this time continue with screening for medical optimization of vascular disease - hold asa- restart 24 hours post thrombolytic (06/07/25 @ 2011) Respiratory - No acute needs- HX asthma, allergic rhinitis, nighttime hypoxia - Continue home inhalers with: SHAWANDA, ICS,LABA, and leukotriene inhibitor - Continue nighttime oxygen GI - No acute needs, HX GERD - Continue with famotidine - Diet advance as tolerated once passes swallow screen- currently without facial droop RENAL/LYTES - No acute needs - Continue home magnesium - follow daily BMPs, ICU electrolyte protocol - No acute needs ENDO - No acute needs- hx: DMII, Hypothyroidism - check thyroid level when able to draw blood post TNK - HGBa1C- add medical therapy as warranted - ICU hyper/hypoglycemic protocol HEME - No acute need - reported history of previous DVT as child - if no further causes/risks could consider further heme workup ID - No concern at this time for infective etiology - urine negative for infection/mimic - no WBC elevation or fevers or prodrome per patient LINES/IV ACCESS - PIV x2 Continue use of these lines DVT PROPHYLAXIS - SCDS, chemoprophylaxis contraindicated in setting of TNK administration DISPO: ICU until approximately 1800 (24 hours post TNKase) Admission and Anticipated Discharge Date Admission Date: June 06, 2025 Subjective No complaints. Bridging with Kera for for anticonvulsant until patient gets home meds Results & Data Results & Data Vital Signs (Past 12 Hours) Vital Signs Temp Pulse Pulse Resp BP Pulse Ox O2 Del Method 06/07/25 08:21 36.5 C 62 18 145/90 H 94 Room Air 06/07/25 07:20 62 18 156/94 H 95 Room Air 06/07/25 06:55 59 L 06/07/25 06:21 56 L 13 114/84 96 Nasal Cannula 06/07/25 05:22 50 L 12 119/57 L 98 Nasal Cannula 06/07/25 04:22 52 L 17 126/79 98 Nasal Cannula 06/07/25 03:52 53 L 16 115/75 97 Nasal Cannula 06/07/25 03:39 36.4 C L 06/07/25 03:22 67 15 140/97 95 Nasal Cannula 06/07/25 02:52 68 17 149/103 H 94 Nasal Cannula 06/07/25 02:22 63 16 118/79 94 Nasal Cannula 06/07/25 01:52 62 16 117/84 95 Nasal Cannula 06/07/25 01:22 58 L 20 124/87 95 Nasal Cannula 06/07/25 00:52 74 23 130/82 94 Nasal Cannula 06/07/25 00:22 69 18 125/77 95 Nasal Cannula 06/06/25 23:59 36.9 C 06/06/25 23:52 65 24 110/64 95 Room Air 06/06/25 22:52 70 19 129/99 98 Nasal Cannula 06/06/25 22:22 78 23 122/89 98 Room Air 06/06/25 22:07 80 24 155/95 H 96 Room Air 06/06/25 21:55 76 06/06/25 21:52 77 23 112/74 98 Room Air 06/06/25 21:45 36.6 C 78 18 112/74 98 Room Air 06/06/25 21:38 Room Air 06/06/25 21:35 88 17 121/87 97 Room Air 06/06/25 21:20 85 20 108/82 94 Room Air 06/06/25 21:05 79 17 112/76 96 Room Air O2 Flow Rate 06/07/25 08:21 06/07/25 07:20 06/07/25 06:55 06/07/25 06:21 2 06/07/25 05:22 2 06/07/25 04:22 2 06/07/25 03:52 2 06/07/25 03:39 06/07/25 03:22 2 06/07/25 02:52 2 06/07/25 02:22 2 06/07/25 01:52 2 06/07/25 01:22 2 06/07/25 00:52 2 06/07/25 00:22 06/06/25 23:59 06/06/25 23:52 06/06/25 22:52 2 06/06/25 22:22 06/06/25 22:07 06/06/25 21:55 06/06/25 21:52 06/06/25 21:45 06/06/25 21:38 06/06/25 21:35 06/06/25 21:20 06/06/25 21:05 Critical Care Results & Data Vital Signs (Past 12 Hours) Vital Signs Temp Pulse Pulse Resp BP Pulse Ox O2 Del Method 06/07/25 08:21 36.5 C 62 18 145/90 H 94 Room Air 06/07/25 07:20 62 18 156/94 H 95 Room Air 06/07/25 06:55 59 L 06/07/25 06:21 56 L 13 114/84 96 Nasal Cannula 06/07/25 05:22 50 L 12 119/57 L 98 Nasal Cannula 06/07/25 04:22 52 L 17 126/79 98 Nasal Cannula 06/07/25 03:52 53 L 16 115/75 97 Nasal Cannula 06/07/25 03:39 36.4 C L 06/07/25 03:22 67 15 140/97 95 Nasal Cannula 06/07/25 02:52 68 17 149/103 H 94 Nasal Cannula 06/07/25 02:22 63 16 118/79 94 Nasal Cannula 06/07/25 01:52 62 16 117/84 95 Nasal Cannula 06/07/25 01:22 58 L 20 124/87 95 Nasal Cannula 06/07/25 00:52 74 23 130/82 94 Nasal Cannula 06/07/25 00:22 69 18 125/77 95 Nasal Cannula 06/06/25 23:59 36.9 C 06/06/25 23:52 65 24 110/64 95 Room Air 06/06/25 22:52 70 19 129/99 98 Nasal Cannula 06/06/25 22:22 78 23 122/89 98 Room Air 06/06/25 22:07 80 24 155/95 H 96 Room Air 06/06/25 21:55 76 06/06/25 21:52 77 23 112/74 98 Room Air 06/06/25 21:45 36.6 C 78 18 112/74 98 Room Air 06/06/25 21:38 Room Air 06/06/25 21:35 88 17 121/87 97 Room Air 06/06/25 21:20 85 20 108/82 94 Room Air 06/06/25 21:05 79 17 112/76 96 Room Air O2 Flow Rate 06/07/25 08:21 06/07/25 07:20 06/07/25 06:55 06/07/25 06:21 2 06/07/25 05:22 2 06/07/25 04:22 2 06/07/25 03:52 2 06/07/25 03:39 06/07/25 03:22 2 06/07/25 02:52 2 06/07/25 02:22 2 06/07/25 01:52 2 06/07/25 01:22 2 06/07/25 00:52 2 06/07/25 00:22 06/06/25 23:59 06/06/25 23:52 06/06/25 22:52 2 06/06/25 22:22 06/06/25 22:07 06/06/25 21:55 06/06/25 21:52 06/06/25 21:45 06/06/25 21:38 06/06/25 21:35 06/06/25 21:20 06/06/25 21:05 Lab & Micro Results (Past 24 Hours) RBC 4.28 M/uL (4.20-5.40) 06/07/25 WBC 9.45 K/ul (4.8-10.8) 06/07/25 Hgb 13.0 g/dl (12.0-16.0) 06/07/25 Hct 39.1 % (37.0-47.0) 06/07/25 MCV 91.4 fL (80.0-100.0) 06/07/25 MCH 30.4 pg (25.0-34.0) 06/07/25 MCHC 33.2 g/dL (32.0-36.0) 06/07/25 RDW Standard Deviation 44.9 fL (36.4-46.3) 06/07/25 RDW Coefficient of Variation 13.5 % (11.5-14.5) 06/07/25 Plt Count 282 K/uL (130-400) 06/07/25 MPV 9.5 fL (9.4-12.4) 06/07/25 Neutrophils (%) (Auto) 57.5 % 06/07/25 Lymphocytes (%) (Auto) 29.6 % 06/07/25 Monocytes # (Auto) 0.81 K/uL (0.11-0.59) H 06/07/25 Eosinophils # (Auto) 0.34 K/uL (0.00-0.50) 06/07/25 Immature Granulocyte % (Auto) 0.4 % 06/07/25 Neutrophils # (Auto) 5.43 K/uL (1.40-6.50) 06/07/25 Lymphocytes # (Auto) 2.80 K/uL (1.20-3.40) 06/07/25 Monocytes # (Auto) 0.81 K/uL (0.11-0.59) H 06/07/25 Eosinophils # (Auto) 0.34 K/uL (0.00-0.50) 06/07/25 Basophils # (Auto) 0.03 K/uL (0.00-0.20) 06/07/25 Immature Granulocyte # (Auto) 0.04 K/uL (0.01-0.20) 5 Na 140 mmol/L (136-145) 06/07/25 K 3.8 mmol/L (3.5-5.1) 06/07/25 Cl 106 mmol/L (98-107) 06/07/25 CO2 25 mmol/L (21-32) 06/07/25 Anion Gap 9 (3-11) 06/07/25 BUN 13 mg/dl (6-23) 06/07/25 Creatinine 0.82 mg/dl (0.6-1.2) 06/07/25 BUN/Creatinine Ratio 15.9 (10-20) 06/07/25 Glu 90 mg/dl (70-99(Fasting)) 06/07/25 Ca 8.8 mg/dl (8.6-10.3) 06/07/25 Total Bilirubin 0.4 mg/dl (0.2-1.0) 06/07/25 AST 15 U/L (13-39) 06/07/25 ALT 26 U/L (7-52) 06/07/25 Alkaline Phosphatase 48 U/L (34-104) 06/07/25 TP 6.4 gm/dl (6.0-8.3) 06/07/25 Albumin 3.4 gm/dl (3.4-5.0) 06/07/25 Globulin 3.0 gm/dl (2.5-4.0) 06/07/25 Albumin/Globulin Ratio 1.1 (0.9-2) 06/07/25 Mg 1.9 mg/dl (1.7-2.4) 06/07/25 04:52 Calcium Level 8.8 mg/dl (8.6-10.3) 06/07/25 04:52 Prothromb Time International Ratio 1.0 (0.9-1.1) 06/06/25 19:2 1 Diagnostic Findings (Past 24 Hours) Head CT 06/06/25 18:[address] without contrast CT angiogram of the neck CT angiogram of the brain with contrast Provided History: Neuro deficit Comparison: None Technique: HEAD CT: Using multidetector thin collimation helical acquisition technique, axial, coronal and sagittal CT images from the skull base to the vertex were obtained without intravenous contrast. HEAD and NECK CTA: During rapid bolus intravenous injection of nonionic contrast material, axial images were obtained using thin collimation multidetector helical technique from the base of the neck through the of vertex of the head. This CT angiogram data was reconstructed at thin intervals with mild overlap. 3D reconstructions were obtained. The axial source images, multiplanar reformations, 3D reconstructions in both maximum intensity projection display and volume rendered models were reviewed. Dose reduction techniques were achieved by using automatic exposure control and/or adjustment of mA and/or kV according to patient size and/or use of iterative reconstruction technique. Findings: Head CT: There is no intracranial hemorrhage, mass effect, or midline shift. Jimenez/white matter differentiation in both cerebral hemispheres is preserved. Ventricles are proportionate to the cerebral sulci. Head CTA demonstrates no aneurysm or stenosis of the major intracranial arteries. Neck CTA demonstrates no stenosis of the major cervical arteries. The origins of the great vessels from the aortic arch are patent. No mass is noted within the visualized portions of the cervical soft tissues or lung apices. Impression: 1. Head CTA demonstrates no aneurysm or stenosis of the major intracranial arteries, 2. Neck CTA demonstrates no stenosis of the major cervical arteries. 3. No intracranial hemorrhage on the noncontrast head CT. Electronically signed by Madhu Rogers 06-06-2025 7:34 PM Head CTA 06/06/25 18:[address] without contrast CT angiogram of the neck CT angiogram of the brain with contrast Provided History: Neuro deficit Comparison: None Technique: HEAD CT: Using multidetector thin collimation helical acquisition technique, axial, coronal and sagittal CT images from the skull base to the vertex were obtained without intravenous contrast. HEAD and NECK CTA: During rapid bolus intravenous injection of nonionic contrast material, axial images were obtained using thin collimation multidetector helical technique from the base of the neck through the of vertex of the head. This CT angiogram data was reconstructed at thin intervals with mild overlap. 3D reconstructions were obtained. The axial source images, multiplanar reformations, 3D reconstructions in both maximum intensity projection display and volume rendered models were reviewed. Dose reduction techniques were achieved by using automatic exposure control and/or adjustment of mA and/or kV according to patient size and/or use of iterative reconstruction technique. Findings: Head CT: There is no intracranial hemorrhage, mass effect, or midline shift. Jimenez/white matter differentiation in both cerebral hemispheres is preserved. Ventricles are proportionate to the cerebral sulci. Head CTA demonstrates no aneurysm or stenosis of the major intracranial arteries. Neck CTA demonstrates no stenosis of the major cervical arteries. The origins of the great vessels from the aortic arch are patent. No mass is noted within the visualized portions of the cervical soft tissues or lung apices. Impression: 1. Head CTA demonstrates no aneurysm or stenosis of the major intracranial arteries, 2. Neck CTA demonstrates no stenosis of the major cervical arteries. 3. No intracranial hemorrhage on the noncontrast head CT. Electronically signed by Madhu Rogers 06-06-2025 7:34 PM Neck CTA 06/06/25 18:[address] without contrast CT angiogram of the neck CT angiogram of the brain with contrast Provided History: Neuro deficit Comparison: None Technique: HEAD CT: Using multidetector thin collimation helical acquisition technique, axial, coronal and sagittal CT images from the skull base to the vertex were obtained without intravenous contrast. HEAD and NECK CTA: During rapid bolus intravenous injection of nonionic contrast material, axial images were obtained using thin collimation multidetector helical technique from the base of the neck through the of vertex of the head. This CT angiogram data was reconstructed at thin intervals with mild overlap. 3D reconstructions were obtained. The axial source images, multiplanar reformations, 3D reconstructions in both maximum intensity projection display and volume rendered models were reviewed. Dose reduction techniques were achieved by using automatic exposure control and/or adjustment of mA and/or kV according to patient size and/or use of iterative reconstruction technique. Findings: Head CT: There is no intracranial hemorrhage, mass effect, or midline shift. Jimenez/white matter differentiation in both cerebral hemispheres is preserved. Ventricles are proportionate to the cerebral sulci. Head CTA demonstrates no aneurysm or stenosis of the major intracranial arteries. Neck CTA demonstrates no stenosis of the major cervical arteries. The origins of the great vessels from the aortic arch are patent. No mass is noted within the visualized portions of the cervical soft tissues or lung apices. Impression: 1. Head CTA demonstrates no aneurysm or stenosis of the major intracranial arteries, 2. Neck CTA demonstrates no stenosis of the major cervical arteries. 3. No intracranial hemorrhage on the noncontrast head CT. Electronically signed by Madhu Rogers 06-06-2025 7:34 PM Brain MRI 06/06/25 22:04 Exam(s): MRI HEAD Without Contrast EXAM: MR Head Without Intravenous Contrast CLINICAL HISTORY: Reason for exam: eval for cerebral ischemia. STROKE: Stroke Notes: stroke like symptoms TECHNIQUE: Magnetic resonance images of the head/brain without intravenous contrast in multiple planes. COMPARISON: CT scan dated 06/06/2025. FINDINGS: Brain: No acute intracranial hemorrhage or infarct.. Ventricles: Unremarkable. No ventriculomegaly. Sinuses: Unremarkable as visualized. No acute sinusitis. Mastoid air cells: Unremarkable as visualized. No mastoid effusion. Orbits: Unremarkable as visualized. IMPRESSION: Unremarkable noncontrast MRI of the brain. Electronically signed by: Steven Francisco MD 06/06/25 23:58 PM I & O Totals 24 Hours 06/06/25 06/07/25 06/08/25 06:59 06:59 06:59 Intake Total 900 / 900 120 / 120 Balance 900 / 900 120 / 120 Cumulative 06/06/25 18:29 thru 06/07/25 08:28 Intake Total 1020 Balance 1020 RT Ventilator Mngmt (Last Documented) Ventilator Ordered Settings Respiratory Rate 18 06/07/25 08:21 Ventilator - PT Measurements Respiratory Rate 18 Coding Level of Care Code 87255 SUB INP/OBS CARE 3/50MIN Diagnoses Stroke-like symptoms R29.90 Seizures R56.9 Nocturnal hypoxia G47.34 Morbid obesity E66.01 Anxiety F41.9 Hypothyroidism E03.9
--- NOTE | 2025-06-07 11:05 | Hospitalist Progress Note ---
Date of Service June 07, 2025 Assessment & Plan (1) Stroke-like symptoms: (2) Acute left-sided weakness: (3) Seizure disorder: (4) Headache: Plan Pallavi Monahan is a 29-year-old female with PMH of epilepsy, asthma, type II DM, TIA, DVT, Restless leg syndrome PTSD, PCOS s/p hysterectomy. Patient presented as a stroke alert after she developed a "buzzing sensation" similar to previous seizures at 1750 06/06. Patient does not remember much of the episode however in the ED endorse left arm and leg weakness (improved) as well as left facial numbness (resolved). Head CT and CTAs negative for acute changes. She was given TNK at 06/06. She is being admitted to the ICU to have further stroke for seizure workup. seen by Dr. Velazquez suspect this is related to seizure episode, plan to increase her brivaracetam from 50 BID, to 50mg morning and 100 evening for one week, and then brivaracetam 100 BID #strokelike symptoms - head CT and CTAs negative for acute changes. Symptoms improving at time of admission. TNK given at 06/06. - stroke with TNK order set - active ROM, pt/ot evals, speech eval, hold asa 24 hrs she's need inpatient monitoring for another 24-48 hours - Atorvastatin 40 mg daily now - adjust prn with lipid panel ordered - recheck LFTs in 2 weeks - MRI brain ordered - echo with bubble study - lipid panel and A1C with AM labs - spoke with neurology, Dr. 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 Was recently transition from Keppra and lamotrigine to brivaracetam 01/2025. she's following with Dr. Velazquez for neurological care - continue brivaracetam, increasing the dose to brivaracetam 50mg morning and 100mg evening for one weeks and then brivacracetam 100 BID she's been having sleep change related to her restless leg syndrome elevated TSH level. #[facility]igraines [facility] #type II DMA1c with a.m. labs, hypoglycemic protocol per ICU discussed dietary control. #asthmacontinue home inhalers and HS oxygen #GERDcontinue famotidine #mental health - continue BuSpar and fluoxetine #hypothyroidismcontinue Synthroid #history of DVTmany years ago, patient unsure of etiology. VTE ppx: SCDs Dispo: ICU Admission and Anticipated Discharge Date Admission Date: June 06, 2025 Subjective Bridging with [facility] for for anticonvulsant until patient gets home meds she been having restless leg syndrome for 1-2 years, her sleep is rather fragmented given her restless leg her TSH is > 40. f/u on free T4 and free T3 no dysuria, no shortness of breath no abdominal pain Review of Systems Review of Systems: Constitutional: No Weight Change, No Fever, No Chills, No Night Sweats, No Fatigue, No Malaise Cardiovascular: No Chest Pain, No SOB, No PND, No Dyspnea on Exertion, No Orthopnea, No Claudication, No Edema, No Palpitations Respiratory: No Cough, No Sputum, No Wheezing, No Dyspnea Gastrointestinal: No Nausea, No Vomiting, No Diarrhea, No Constipation, No Pain, No Heartburn, No Anorexia, No Dysphagia, No Hematochezia, No Melena, No Flatulence, No Jaundice Genitourinary: no dysuria; + for hysterectomy from PCOS Musculoskeletal: No Arthralgias, No Myalgias, No Joint Swelling, No Joint Stiffness, No Back Pain, No Neck Pain, No Injury History Neuro: No Weakness, No Numbness, No Paresthesias, No Loss of Consciousness, No Syncope, No Dizziness, No Headache, No Coordination Changes, No Recent Falls Psych: + for sleep disturbance Physical Exam Physical Exam: VITALS: Reviewed. WEIGHT/BMI reviewed. GEN: Healthy appearing, well-developed, NAD. -Head: NC/AT; -Mouth and throat: MMM. Normal gums, muc ted, palate,. Good dentition. NECK: Supple, with no masses. CV: RRR, no m/r/g. LUNGS: CTAB, no w/r/c. ABD: Soft, NT/ND, NBS, no masses or organomegaly. : N/A EXT: No clubbing, cyanosis, or edema. NEURO: AAOx3 Results & Data Results & Data Vital Signs (Past 12 Hours) Vital Signs Temp Pulse Pulse Resp BP Pulse Ox O2 Del Method 06/07/25 10:20 53 L 18 136/79 95 Room Air 06/07/25 09:22 63 20 126/76 96 Room Air 06/07/25 08:21 36.5 C 62 18 145/90 H 94 Room Air 06/07/25 07:45 Room Air 06/07/25 07:20 62 18 156/94 H 95 Room Air 06/07/25 06:55 59 L 06/07/25 06:21 56 L 13 114/84 96 Nasal Cannula 06/07/25 05:22 50 L 12 119/57 L 98 Nasal Cannula 06/07/25 04:22 52 L 17 126/79 98 Nasal Cannula 06/07/25 03:52 53 L 16 115/75 97 Nasal Cannula 06/07/25 03:39 36.4 C L 06/07/25 03:22 67 15 140/97 95 Nasal Cannula 06/07/25 02:52 68 17 149/103 H 94 Nasal Cannula 06/07/25 02:22 63 16 118/79 94 Nasal Cannula 06/07/25 01:52 62 16 117/84 95 Nasal Cannula 06/07/25 01:22 58 L 20 124/87 95 Nasal Cannula 06/07/25 00:52 74 23 130/82 94 Nasal Cannula 06/07/25 00:22 69 18 125/77 95 Nasal Cannula 06/06/25 23:59 36.9 C 06/06/25 23:52 65 24 110/64 95 Room Air O2 Flow Rate 06/07/25 10:20 06/07/25 09:22 06/07/25 08:21 06/07/25 07:45 06/07/25 07:20 06/07/25 06:55 06/07/25 06:21 2 06/07/25 05:22 2 06/07/25 04:22 2 06/07/25 03:52 2 06/07/25 03:39 06/07/25 03:22 2 06/07/25 02:52 2 06/07/25 02:22 2 06/07/25 01:52 2 06/07/25 01:22 2 06/07/25 00:52 2 06/07/25 00:22 06/06/25 23:59 06/06/25 23:52 Laboratory Results Laboratory Results - last 72 hr 06/06/25 06/06/25 06/06/25 19:21 19:28 22:23 WBC 10.76 RBC 5.07 Hgb 15.2 Hct 45.8 MCV 90.3 MCH 30.0 MCHC 33.2 RDW Std Deviation 44.4 RDW Coeff of Thao 13.4 Plt Count 337 MPV 9.9 Immature Gran % (Auto) 0.5 Neut % (Auto) 66.6 Lymph % (Auto) 23.2 Ada % (Auto) 6.6 Eos % (Auto) 2.9 Baso % (Auto) 0.2 Neut # (Auto) 7.17 H Lymph # (Auto) 2.50 Ada # (Auto) 0.71 H Eos # (Auto) 0.31 Baso # (Auto) 0.02 Immature Gran # (Auto) 0.05 PT 10.3 INR 1.0 APTT 25 PTT Ratio 0.9 Sodium 139 Potassium 3.9 Chloride 104 Carbon Dioxide 28 Anion Gap 7 BUN 13 Creatinine 0.76 Est Cr Clr Drug Dosing 147.8 eGFR 108.71 BUN/Creatinine Ratio 17.1 Glucose 87 POC Glucose 117 H 134 H Estimat Average Glucose Hemoglobin A1c Calcium 9.7 Magnesium 1.9 Total Bilirubin 0.4 AST 22 ALT 37 Alkaline Phosphatase 65 Troponin I High Sens 3.6 Total Protein 7.4 Albumin 4.2 Globulin 3.2 Albumin/Globulin Ratio 1.3 Triglycerides Cholesterol LDL Cholesterol, Calc VLDL Cholesterol, Calc HDL Cholesterol Cholesterol/HDL Ratio TSH Free T4 HCG, Qual Negative Urine Color Yellow Urine Appearance Clear Urine pH 7.0 Ur Specific [place] 1.017 Urine Protein Negative Urine Glucose (UA) Negative Urine Ketones Negative Urine Blood Negative Urine Nitrite Negative Urine Bilirubin Negative Urine Urobilinogen Negative Ur Leukocyte Esterase Negative Urine Comment Nasal Screen MRSA (PCR) 06/06/25 06/07/25 06/07/25 Unknown 04:52 07:20 WBC 9.45 RBC 4.28 Hgb 13.0 Hct 39.1 MCV 91.4 MCH 30.4 MCHC 33.2 RDW Std Deviation 44.9 RDW Coeff of Thao 13.5 Plt Count 282 MPV 9.5 Immature Gran % (Auto) 0.4 Neut % (Auto) 57.5 Lymph % (Auto) 29.6 Ada % (Auto) 8.6 Eos % (Auto) 3.6 Baso % (Auto) 0.3 Neut # (Auto) 5.43 Lymph # (Auto) 2.80 Ada # (Auto) 0.81 H Eos # (Auto) 0.34 Baso # (Auto) 0.03 Immature Gran # (Auto) 0.04 PT INR APTT PTT Ratio Sodium 140 Potassium 3.8 Chloride 106 Carbon Dioxide 25 Anion Gap 9 BUN 13 Creatinine 0.82 Est Cr Clr Drug Dosing 134.5 eGFR 99.24 BUN/Creatinine Ratio 15.9 Glucose 90 POC Glucose 107 H Estimat Average Glucose 100 Hemoglobin A1c 5.1 Calcium 8.8 Magnesium 1.9 Total Bilirubin 0.4 AST 15 ALT 26 Alkaline Phosphatase 48 Troponin I High Sens Total Protein 6.4 Albumin 3.4 Globulin 3.0 Albumin/Globulin Ratio 1.1 Triglycerides 117 Cholesterol 139 LDL Cholesterol, Calc 87 VLDL Cholesterol, Calc 23 HDL Cholesterol 29 Cholesterol/HDL Ratio 4.8 TSH 45.879 H Free T4 0.63 HCG, Qual Urine Color Urine Appearance Urine pH Ur Specific [place] Urine Protein Urine Glucose (UA) Urine Ketones Urine Blood Urine Nitrite Urine Bilirubin Urine Urobilinogen Ur Leukocyte Esterase Urine Comment Nasal Screen MRSA (PCR) Negative Medications Administered Current Inpatient Medications Acetaminophen (Acetaminophen 325 Mg Tab) 650 mg PO Q4H PRN PRN Reason: Pain or Fever Stop: 07/06/25 21:51 Albuterol (Albuterol Hfa 8 Gm Inhaler) 2 puffs INH Q4H PRN PRN Reason: Wheezing Stop: 07/06/25 20:48 Albuterol (Albuterol 0.083% Nebu Soln 3 Ml Vial) 2.5 mg INH Q4H PRN; Protocol PRN Reason: Shortness Of Breath Or Wheezing Stop: 07/06/25 20:53 Aspirin (No Aspirin Within 24hrs Of Thrombolytic-Stroke) 1 each PO UD MENDY Stop: 06/07/25 20:14 Atorvastatin Calcium (Atorvastatin 40 Mg Tab) 40 mg PO QAM MENDY Stop: 07/07/25 08:59 Last Admin: 06/07/25 08:57 Dose: 40 mg Buspirone HCl (Buspirone 15 Mg Tab) 15 mg PO BID MENDY Stop: 07/06/25 20:59 Last Admin: 06/07/25 08:57 Dose: 15 mg Dextrose (Dextrose 50% 50 Ml Syringe) 25 - 50 ml IV UD PRN; Protocol PRN Reason: Hypoglycemia Protocol Stop: 07/06/25 21:57 Docusate Sodium (Docusate Sodium 100 Mg Cap) 100 mg PO BID PRN PRN Reason: Constipation Stop: 07/06/25 21:51 Famotidine (Famotidine 20 Mg Tab) 20 mg PO QAM MENDY Stop: 07/07/25 08:59 Last Admin: 06/07/25 08:57 Dose: 20 mg Fluoxetine HCl (Fluoxetine Hcl 10 Mg Cap) 10 mg PO DAILY MENDY Stop: 07/07/25 08:59 Last Admin: 06/07/25 08:57 Dose: 10 mg Fluticasone/Vilanterol (Fluticasone/Vilanterol 200/25mcg 14 Puffs/Inhaler) 1 puffs INH DAILY MENDY; Protocol Stop: 07/07/25 08:59 Last Admin: 06/07/25 08:57 Dose: 1 puffs Glucagon (Glucagon For Inj 1 Mg Vial) 1 mg SQ UD PRN; Protocol PRN Reason: Hypoglycemia Protocol Stop: 07/06/25 21:57 Glucose (Glucose 40% Gel 15 Gm Tube) 15 - 30 gm PO UD PRN; Protocol PRN Reason: Hypoglycemia Protocol Stop: 07/06/25 21:57 Glucose (Glucose 10 Tab/Tube) 4 - 8 tab PO UD PRN; Protocol PRN Reason: Hypoglycemia Protocol Stop: 07/06/25 21:57 Labetalol HCl (Labetalol Hcl Iv 5 Mg/Ml 20ml) 10 mg IV Q15M PRN PRN Reason: SBP >180 or DBP >105 mmHg Stop: 06/07/25 22:00 Levetiracetam (Levetiracetam 500 Mg Tab) 500 mg PO Q12H MENDY Stop: 07/07/25 08:59 Last Admin: 06/07/25 08:59 Dose: 500 mg Levothyroxine Sodium (Levothyroxine Sodium 125 Mcg Tablet) 125 mcg PO DAILYBB MENDY Stop: 07/07/25 06:29 Last Admin: 06/07/25 06:28 Dose: 125 mcg Magnesium Oxide (Magnesium Oxide 400 Mg Tab) 400 mg PO QAM MENDY Stop: 07/07/25 08:59 Last Admin: 06/07/25 08:59 Dose: 400 mg Melatonin (Melatonin 3 Mg Tab) 3 mg PO HS PRN PRN Reason: Sleep Stop: 07/06/25 21:51 Miscellaneous (Brivaracetam [Briviact] 50 Mg Tablet-Order Awaiting Action) 1 each N/A QS MENDY Stop: 07/07/25 00:00 Last Admin: 06/07/25 08:30 Dose: Not Given Miscellaneous (Icu Protocol For Hyperglycemia) 1 each N/A ACHS MENDY Stop: 06/09/25 07:29 Last Admin: 06/07/25 07:39 Dose: Not Given Miscellaneous (Carbohydrates For Hypoglycemia ) 15 - 30 gm PO UD PRN PRN Reason: Hypoglycemia Protocol Stop: 07/06/25 21:57 Miscellaneous Information (Pharmacist Discharge Med Rec Consult) 1 each N/A UD PRN PRN Reason: Consult Stop: 07/06/25 21:58 Montelukast Sodium (Montelukast Sodium 10 Mg Tablet) 10 mg PO QAM MENDY Stop: 07/07/25 08:59 Last Admin: 06/07/25 08:57 Dose: 10 mg Ondansetron HCl (Ondansetron 4 Mg Od Tab) 4 mg PO Q8H PRN PRN Reason: Nausea And Vomiting Stop: 07/06/25 20:48 Ondansetron HCl (Ondansetron Inj 2 Mg/Ml 2 Ml Vial) 4 mg IV Q6H PRN PRN Reason: Nausea And Vomiting Stop: 07/06/25 21:51 Pantoprazole Sodium (Pantoprazole 40 Mg Tab) 40 mg PO QAM MENDY Stop: 07/07/25 08:59 Last Admin: 06/07/25 08:57 Dose: 40 mg Polyethylene Glycol (Polyethylene (Miralax) 17 Gm Pack) 17 gm PO DAILY PRN PRN Reason: Constipation Stop: 07/06/25 21:51 Simethicone (Simethicone 80 Mg Chew) 80 mg PO HS MENDY Stop: 07/06/25 21:44 Last Admin: 06/06/25 22:28 Dose: 80 mg Umeclidinium [place] (Umeclidinium [place] 62.5mcg/Blister 7 Puffs/Inhaler) 1 puffs INH DAILY MENDY Stop: 07/07/25 08:59 Last Admin: 06/07/25 09:01 Dose: 1 puffs Vibegron (Vibegron 75 Mg Tab) 75 mg PO DAILY MENDY Stop: 07/07/25 08:59 Last Admin: 06/07/25 08:57 Dose: 75 mg PG Care Time/CCT Total # of Minutes Spent Total Time Spent with Patient: Total time spent is greater than 50% in coordination of care (as documented) at patient's floor/unit and/or counseling patient: Coding Level of Care Code 02199 SUB INP/OBS CARE 09/08MIN Diagnoses Stroke-like symptoms R29.90 Acute left-sided weakness R53.1 Seizure disorder G40.909 Headache R51.9 Headache chronicity pattern: acute headache Headache type: unspecified Intractability: not intractable Time Spent (min) 25 (4) Headache Headache chronicity pattern: acute headache Headache type: unspecified Intractability: not intractable Qualified Code(s): R51.9 - Headache, unspecified
--- NOTE | 2025-06-07 18:59 | Electrocardiogram Report ---
Test Reason : Blood Pressure : */* mmHG Vent. Rate : 87 BPM Atrial Rate : 87 BPM P-R Int : 164 ms QRS Dur : 86 ms QT Int : 392 ms P-R-T Axes : 40 59 60 degrees QTcB Int : 471 ms Normal sinus rhythm Normal ECG When compared with ECG of 18-Jul-2024 11:04, No significant change was found Confirmed by Donavon Scales ([id number]) on 06/07/2025 6:58:59 PM Referred By: REFERRED SELF Confirmed By: Donavon Scales
[2025-06-07] MEDS: BRIVARACETAM 100 MG PO SCH (20:54)
--- NOTE | 2025-06-07 21:09 | CT Scan Report ---
Exam(s): CT HEAD Without Contrast EXAM: CT Head Without Intravenous Contrast CLINICAL HISTORY: Post TPA/TNK 24 hour. TECHNIQUE: Axial computed tomography images of the head/brain without intravenous contrast. CTDI is 36.79 mGy and DLP is 547.75 mGy-cm. Automated exposure control was utilized for the study. A dose lowering technique was utilized adhering to the principles of ALARA. COMPARISON: CT head 06/06/2025, MRI brain 06/06/2025. FINDINGS: Brain: Ventricles and sulci are normal in size and configuration for age. No acute stroke. No acute hemorrhage. No abnormal extra-axial fluid collection. Ventricles: No hydrocephalus. No midline shift. Bones/joints: Unremarkable. No acute fracture. Soft tissues: Unremarkable. Sinuses: Unremarkable as visualized. No acute sinusitis. IMPRESSION: No acute abnormality. Electronically signed by: Alex Schaefer M.D. 06/07/25 21:08 PM
[2025-06-08 05:28] LABS: Hematocrit (blood only) 42.1 % (37.0-47.0); Hemoglobin 13.8 g/dl (12.0-16.0); Immature Granulocytes # (auto) 0.04 K/uL (0.01-0.20); Immature Granulocytes % (auto) 0.4 %; Mean Corpuscular Hemoglobin 30.2 pg (25.0-34.0); Mean Corpuscular Volume 92.1 fL (80.0-100.0); Platelet Count 310 K/uL (130-400); RDW Standard Deviation 46.0 fL (36.4-46.3); Red Blood Count 4.57 M/uL (4.20-5.40); White Blood Count 9.95 K/ul (4.8-10.8)
[2025-06-08 05:46] LABS: Alanine Aminotransferase 29.0 U/L (7-52); Albumin Globulin Ratio 1.4 (0.9-2); Albumin Level 3.8 gm/dl (3.4-5.0); Alkaline Phosphatase 54.0 U/L (34-104); Anion Gap 8.0 (3-11); Bilirubin,Total 0.6 mg/dl (0.2-1.0); Blood Urea Nitrogen 13.0 mg/dl (6-23); Calcium 9.5 mg/dl (8.6-10.3); Carbon Dioxide 29.0 mmol/L (21-32); Chloride 103.0 mmol/L (98-107); Creatinine Clr Calc Pharmacy 162.5 ml/min; Globulin 2.8 gm/dl (2.5-4.0); Glucose 91.0 mg/dl (70-99(Fasting)); Magnesium 1.9 mg/dl (1.7-2.4); Potassium 3.5 mmol/L (3.5-5.1); Sodium 140.0 mmol/L (136-145); Total Protein 6.6 gm/dl (6.0-8.3)
[2025-06-08 08:36] VITALS: BP 133/73; PULSE 60; RESP 18; TEMP 98.1; O2SAT 97
[2025-06-08] MEDS ORDERED: STROKE PATIENT DISCHARGE STA (11:34)
--- NOTE | 2025-06-08 14:48 | Discharge Summary ---
Discharge Summary Date of Service June 08, 2025 Principal Dx & Hospital Course #1 = Principal Diagnosis (1) Stroke-like symptoms: Pallavi Monahan is a 29 yo woman with pMH Of seizure, TIA, migraine, cervical radiculopathy she's presented to our facility with left side weakness, posturing and stiffness of the left upper extremity, confusion, left side dysestheias. she's s/p TNK on admission and was brought to ICU for monitor repeat CT head negative for bleeding. she's was also found to has elevated TSh > 40. patient being evaluate by neurology and suspect this is seizure related, spoke with Dr. Velazquez increased her briviact from home dose of 50mg BID to 50mg morning and 100mg evening then one week later, on Jun 15, 2025, will begin briviact 100mg BID she will need to f/u with neurology she will need to f/u with cardiology for event monitor (2) Acute left-sided weakness: (3) Seizure disorder: (4) Headache: Plan Patient is a 29-year-old female with past medical history of epilepsy, asthma, type II DM, TIA, DVT, RLS, PTSD. Patient presented as a stroke alert after she developed a "buzzing sensation" similar to previous seizures at 1750 06/06. Patient does not remember much of the episode however in the ED endorse left arm and leg weakness (improved) as well as left facial numbness (resolved). Head CT and CTAs negative for acute changes. She was given TNK at 06/06. She is being admitted to the ICU to have further stroke for seizure workup. #strokelike symptoms - head CT and CTAs negative for acute changes. Symptoms improving at time of admission. TNK given at 06/06. 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 Was recently transition from Keppra and lamotrigine to brivaracetam 01/2025. - continue brivaracetam #migraines - continue Bannerte #type II DMA1c with a.m. labs, hypoglycemic protocol per ICU #asthmacontinue home inhalers and HS oxygen #GERDcontinue famotidine #mental health - continue BuSpar and fluoxetine #hypothyroidismcontinue Synthroid #history of DVTmany years ago, patient unsure of etiology. VTE ppx: SCDs Dispo: ICU Notes For Next Care Provider increase synthroid dose referred to cardiology to event monitor her seizure med dose was increased to Brivaracetam 50mg morning and 100mg evening till 06/14/2025 starting on Jun 15, 2025, her seizure med dose will be brivaracetam 100mg BID Medication Changes From Visit Brivaracetam increased to 100mg BID (Jun 15) for first week, brivaracetam 50mg morning and 100mg evening Admission HPI Per Admitting Provider Patient is a 29-year-old female with past medical history of epilepsy, asthma, type II DM, TIA, DVT, RLS, PTSD. Patient presented as a stroke alert after she developed a "buzzing sensation" similar to previous seizures at 1750 06/06. Patient does not remember much of the episode however in the ED endorse left arm and leg weakness (improved) as well as left facial numbness (resolved). Head CT and CTAs negative for acute changes. She was given TNK at 2011. She is being admitted to the ICU to have further stroke for seizure workup. Patient seen at bedside. She stated she does not remember much of the episode however felt like she was going to have a seizure. Family is no longer at bedside to obtain further history. Her most recent seizure was 1 to 2 years ago, she cannot remember exactly when. She stated she has been compliant with all of her home medications and did take them this morning. She was concerned that having labs on 05/21 affected her home medications, discussed that this is not the case. She stated after the episode she had left arm and leg weakness which is now improved as well as left facial droop and numbness which is now improving and almost resolved. She did lose urinary incontinence with the episode and has had numerous episodes of vomiting since. She currently endorses a headache and nausea. she stated she was a former smoker and quit within the past year, previously 1/2 pack/day for about 9 years. She state she occasionally drinks alcohol. She wishes to be full code. Medical records reviewed. She has a noted history of 2 episodes of DVT, 1st in 2013 with unknown etiology, second in 2021 due to pneumonia treated with 6 months of Coumadin. Noted history of 4 TIAs, most recent in 2022. Follows with neurology (Dr. Izaguirre) and appears she was transition off Keppra and lamotrigine onto Briviact 01/29/2025. Most recently noted seizure was 06/2023. Discharge Exam VITALS: Reviewed. WEIGHT/BMI reviewed. GEN: Healthy appearing, well-developed, NAD. PSYCH: Good Judgment. AOx3. Normal memory, mood, and affect. HEENT -Head: NC/AT; NECK: Supple, with no masses. CV: RRR, no m/r/g. LUNGS: CTAB, no w/r/c. ABD: Soft, NT/ND, NBS, no masses or organomegaly. SKIN: Warm, well perfused. No skin rashes or abnormal lesions. MSK: No deformities, Normal gait. EXT: No clubbing, cyanosis, or edema. NEURO:AAOx3; no facial droop; 5/5 strength; following command; no slurred speech Discharge Plan Discharge Items Patient Disposition: Home - Home Health Services Reason For Visit: STROKE ALERT Discharge Diagnosis: breakthrough seizure AMS Condition on Discharge: Serious Activity: Per Instructions section Lifting: Gradually increase as tolerated Non-emergency contact: Primary Care Provider and Neurologist Call non-emergency contact if: your symptoms worsen and you have a fever Follow-up/Referrals: Dax Strauss DO [Primary Care Provider] - 06/11/25 11:00 am (Primary Care hospital follow up scheduled on 06/11/25 at 11:00 with Dax Strauss) Diet: Regular Addtl Attending Provider Instructions: you will make appointment with seat maker (multimedia educational specialist ), for event monitoring you will make appointment to see neurologist you will be on BRIVIACT 50mg (morning) and then BRIVIACT (100mg evening) until June 14, 2025 Starting on Jun 15, 2025, you will begin BRIVACT 100mg (morning) and BRIVIACT 100mg (evening) follow up with Dr. Velazquez in 1-2 weeks Pending Studies at Discharge: Yes Studies:: event monitoring (to be set up with seat maker) Stand-Alone Forms: [facility], Smoking Cessation Medications and DC Order Prescriptions: New Briviact 100 mg Tablet 100 mg PO BID 30 Days Qty: 60 0RF Briviact 50 mg tablet 50 mg PO QAM 6 Days Qty: 6 0RF Rx Instructions: plan for Briviact 50mg mornning, 100mg evening till 06/13, then Jun 15, Briviact 100 BID Continued mirabegron [Myrbetriq] 50 mg tablet extended release 24 hr 50 mg PO DAILY Qty: 90 3RF (DME) Oxygen Home Liters Per Minute See Rx Instructions .MEDSUPPLY Qty: 1 0RF Rx Instructions: 2 L oxygen via nasal cannula nightly lorazepam 0.5 mg tablet 0.5 mg PO .COMPLEX PRN (Reason: seizure activity) Qty: 5 1RF Rx Instructions: take one prn seizure cholecalciferol (vitamin D3) 50 mcg (2,000 unit) capsule 50 mcg PO QAM mecobalamin (vitamin B12) 1,000 mcg tablet,disintegrating 1,000 mcg sublingual DAILY Rx Instructions: place tablet under tongue and allow to dissolve for at least30 secs before swallowing magnesium oxide 400 mg magnesium capsule 400 mg PO QAM albuterol sulfate 2.5 mg /3 mL (0.083 %) solution for nebulization 2.5 mg continuous nebulization Q4H PRN (Reason: Shortness Of Breath Or Wheezing) Qty: 90 3RF Spiriva Respimat 2.5 mcg/actuation mist 2 puff inhalation DAILY Qty: 4 6RF Nurtec ODT 75 mg tablet,disintegrating 75 mg PO ONCE PRN (Reason: Migraine Headache) albuterol sulfate 90 mcg/actuation HFA aerosol inhaler 2 inh INHALATION Q4H PRN (Reason: Wheezing) Qty: 3 3RF montelukast [Singulair] 10 mg tablet 10 mg PO QAM Qty: 30 11RF budesonide-formoterol [Symbicort] 160-4.5 mcg/actuation HFA aerosol inhaler 2 puff inhalation BID Qty: 10.2 11RF epinephrine 0.3 mg/0.3 mL auto-injector 0.3 mg IM Q15M PRN (Reason: anaphylaxis) Qty: 2 0RF meloxicam 7.5 mg tablet 7.5 - 15 mg PO DAILY MDD 2 pills Qty: 30 1RF Rx Instructions: With meals if possible. (DME) inhalational spacing device Spacer See Rx Instructions .ROUTE .MEDSUPPLY Qty: 1 0RF Rx Instructions: As directed famotidine [Pepcid] 20 mg Tablet 20 mg PO QAM buspirone 10 mg tablet 15 mg PO BID rabeprazole 20 mg Tablet,Delayed Release (Dr/Ec) 20 mg PO QAM aspirin 81 mg Capsule 81 mg PO DAILY Hold Instructions: Resume on 05/21/24. May resume on Tuesday if there is no bruising Patient Comments: has holding instructions levothyroxine 137 mcg tablet 125 mcg PO DAILY magnesium oxide 400 mg (241.3 mg magnesium) Tablet 400 mg PO DAILY fluoxetine 10 mg Capsule 10 mg PO DAILY clobetasol 0.05 % ointment 1 applic TOPICAL 1XD ondansetron 4 mg Tablet,Disintegrating 4 mg PO Q8H PRN (Reason: Nausea And Vomiting) simethicone 80 mg Tablet 80 mg PO HS Discontinued Briviact 50 mg tablet 50 mg PO BID 30 Days Qty: 60 5RF Discharge Orders: Discharge Order (Routine); Ordered 06/08/25 Ordered By: Virgil Pro/Other Patient Handouts: Living Well with Epilepsy, Thrombolytic Therapy for Stroke, Symptoms of Stroke, What Is Ischemic Stroke?, What Is a TIA?, Discharge Instructions for Epilepsy, ED Seizure, Recurrent (Adult) Admission Data Admit Date/Time: 06/06/25 21:10 Attending Provider: Virgil Farr Admit Provider: Britton Tao Primary Care Provider: Dax Strauss Other Providers: Britton Tao; Roger Richardson; Andrzej Velazquez; [facility] Other Interventions: Discharge Summary Assessment (RN) Last Done: 06/08/25 11:42 Hospital Stay Data Consultations 06/06/25 20:10 ED Decision to Admit Stat 06/06/25 21:52 Consult Hand Salter Routine 06/06/25 21:59 Consult Neurology Routine Diagnostic Imagining Performed 06/06/25 18:47 CT angio head w con Stat CT angio neck with con Stat CT head/brain wo con Stat 06/06/25 22:04 MR brain wo con Routine 06/07/25 20:20 CT head/brain wo con Stat Pending Results Patient Have Any Pending Studies at Discharge: Yes Discharge Instructions Given to Patient (Per Discharging Provider) you will make appointment with seat maker (multimedia educational specialist ), for event monitoring you will make appointment to see neurologist you will be on BRIVIACT 50mg (morning) and then BRIVIACT (100mg evening) until June 14, 2025 Starting on Jun 15, 2025, you will begin BRIVACT 100mg (morning) and BRIVIACT 100mg (evening) follow up with Dr. Velazquez in 1-2 weeks Total Time Total Time Spent Total Time Spent (In Minutes): 25 Coding Level of Care Code 67201 IN/OBS DISCH 30 MIN/LESS Diagnoses Stroke-like symptoms R29.90 Acute left-sided weakness R53.1 Seizure disorder G40.909 Headache R51.9 Headache chronicity pattern: acute headache Headache type: unspecified Intractability: not intractable Time Spent (min) 25
== END 2025-06-08 13:00 | disposition home health service (06) | DRG 101 ==
LOC: ED 18:42 → 1E 21:10 → SUATTDRO 21:10 → 1E 21:38